=== PATIENT | female | born 1965 | race Two or more races ===

== ENCOUNTER 2016-07-04 16:44 | Emergency (ER) | payer MEDICARE, MEDICAID ==
[~2016-07-04] VITALS: Ht 154.9 cm; Wt 89.8 kg
[2016-07-04 17:00] VITALS: BP 132/91
== END 2016-07-04 22:07 | disposition home or self-care (01) ==
LOC: ER 16:46
DX: J40 Bronchitis, not specified as acute or chronic (principal); I25.10 Atherosclerotic heart disease of native coronary artery without angina pectoris
CPT/HCPCS: 71020; 93005

== ENCOUNTER 2022-10-20 19:06 | Emergency (ER) | payer MEDICARE, MEDICAID ==
[~2022-10-20] VITALS: Ht 157.5 cm; Wt 84.0 kg
[2022-10-20] MEDS ORDERED: levoFLOXacin 500MG 100 ML IV ONE (20:00)
[2022-10-20] MEDS ORDERED: SODIUM CHLORIDE 0.9% 1,000 ML IVB ONE (20:00)
[2022-10-20] MEDS ORDERED: cefTRIAXone 1GM/50ML D5W 50 ML IV ONE (20:00)
[2022-10-21 01:29] LABS: Basophils # (auto) 0 10 ^3/uL (0-0.2); Basophils % (auto) 0.4 % (0.0-2.0); Eosinophils # (auto) 0.3 10 ^3/uL (0-0.8); Eosinophils % (auto) 2.6 % (0.0-7.0); Hematocrit 41.3 % (36.0-46.0); Hemoglobin 13.7 g/dL (12.2-16.2); Lymphocytes # (auto) 2.6 10 ^3/uL (0.4-5.4); Mean Corpuscular Hemoglobin 29.5 pg (28.0-32.0); Mean Corpuscular Hgb Conc. 33.2 g/dL (32.0-36.0); Mean Corpuscular Volume 88.9 fL (80.0-100.0); Monocytes # (auto) 0.4 10 ^3/uL (0-1.3); Monocytes % (auto) 4.4 % (0.0-12.0); Neutrophils # (auto) 6.3 10 ^3/uL (1.6-8.6); Neutrophils % (auto) 65.6 % (37.0-80.0); Nucleated Red Blood Cells % 0.2 %; Red Blood Cells 4.65 10^6/uL (4.0-5.20); Red Cell Distribution Width 14.3 % (11.8-14.3); White Blood Cell 9.7 10^3/uL (4.4-10.8)
[2022-10-21 01:41] LABS: INR 0.95 (0.9-1.15)
[2022-10-21 01:59] LABS: Albumin 3.8 g/dL (3.4-5.0); BUN/Creatinine Ratio 21.6 (10.0-20.0); Potassium 3.4 mmol/L (3.5-5.1)
[2022-10-21 02:03] LABS: Bilirubin, Total 0.3 mg/dL (0.2-1.0); Total Protein 7.3 g/dL (6.4-8.2)
[2022-10-21 02:20] LABS: Urine Bacteria MANY /hpf (None Seen); Urine Blood 2+ /uL (Negative); Urine Hyaline Cast MANY /lpf (0 - 2); Urine Mucus FEW (None Seen); Urine Specific Gravity 1.024 (1.001-1.035); Urine WBC 156 /hpf (0 - 5); Urine WBC Clumps PRESENT /hpf (None Seen)
[2022-10-21 04:41] VITALS: PULSE 68; RESP 18; O2SAT 95
[2022-10-21 04:42] VITALS: TEMP 97.8
[2022-10-21] MEDS ORDERED: ONDANSETRON HCL 4 MG/2 ML VIAL IV ONE (05:00)
[2022-10-21] MEDS ORDERED: HYDROcodone-ACET 5/325MG TAB PO ONE (05:00)
[2022-10-21] MEDS ORDERED: cefTRIAXone 1GM/50ML D5W 50 ML IV ONE (06:00)
[2022-10-21] MEDS ORDERED: HYDROcodone-ACET 10/325MG TAB PO ONE (06:00)
[2022-10-21] MEDS ORDERED: CEPH250C PO (06:12)
[2022-10-21 06:44] VITALS: BP 103/65; PULSE 84; RESP 19; O2SAT 95
[2022-10-25] MEDS ORDERED: HYDR1TAB97 PO (20:06)
== END 2022-10-21 07:01 | disposition home or self-care (01) ==
LOC: ER 19:06
DX: N39.0 Urinary tract infection, site not specified (principal); R10.2 Pelvic and perineal pain; I25.10 Atherosclerotic heart disease of native coronary artery without angina pectoris; Z87.442 Personal history of urinary calculi; Z90.49 Acquired absence of other specified parts of digestive tract; Z98.890 Other specified postprocedural states; Z91.040 Latex allergy status; Z88.8 Allergy status to other drugs, medicaments and biological substances
CPT/HCPCS: 36415; 74176; 76830; 76856; 80053; 81001; 85025; 85610; 96365; 96367; 96375; 99285; J0696; J1956; J2405

== ENCOUNTER 2022-11-03 19:22 | Emergency (ER) | payer MEDICARE, MEDICAID ==
[~2022-11-03] VITALS: Ht 157.5 cm; Wt 83.2 kg
[~2022-11-03 19:22] MED LIST: CEPH250C PO; HYDR1TAB97 PO
[2022-11-03 21:24] LABS: Albumin 3.6 g/dL (3.4-5.0); BUN/Creatinine Ratio 20.1 (10.0-20.0); Calcium 8.2 mg/dL (8.5-10.1); Magnesium 2.3 mg/dL (1.6-2.6)
[2022-11-03 21:26] LABS: Bilirubin, Total 0.3 mg/dL (0.2-1.0); Total Protein 6.9 g/dL (6.4-8.2)
[2022-11-03 21:31] LABS: Basophils # (auto) 0.1 10 ^3/uL (0-0.2); Basophils % (auto) 0.6 % (0.0-2.0); Eosinophils # (auto) 0.2 10 ^3/uL (0-0.8); Eosinophils % (auto) 2.2 % (0.0-7.0); Hematocrit 37.5 % (36.0-46.0); Hemoglobin 12.8 g/dL (12.2-16.2); Lymphocytes # (auto) 2.4 10 ^3/uL (0.4-5.4); Lymphocytes % (auto) 28.4 % (10.0-50.0); Mean Corpuscular Hgb Conc. 34.1 g/dL (32.0-36.0); Mean Corpuscular Volume 88.1 fL (80.0-100.0); Monocytes # (auto) 0.4 10 ^3/uL (0-1.3); Monocytes % (auto) 4.7 % (0.0-12.0); Neutrophils # (auto) 5.3 10 ^3/uL (1.6-8.6); Neutrophils % (auto) 64.1 % (37.0-80.0); Nucleated Red Blood Cells % 0.1 %; Red Blood Cells 4.26 10^6/uL (4.0-5.20); Red Cell Distribution Width 14.7 % (11.8-14.3); White Blood Cell 8.3 10^3/uL (4.4-10.8)
[2022-11-03 23:52] VITALS: BP 111/61; PULSE 65; RESP 18; TEMP 97.9; O2SAT 96
[2022-11-03 23:52] LABS: Urine Bacteria MANY /hpf (None Seen); Urine Blood Negative /uL (Negative); Urine Hyaline Cast FEW /lpf (0 - 2); Urine Specific Gravity 1.022 (1.001-1.035); Urine WBC 25 /hpf (0 - 5)
[2022-11-04] MEDS ORDERED: HYDROcodone-ACET 10/325MG TAB PO ONE
[2022-11-04] MEDS ORDERED: KETOROLAC TROMETH 60MG/2ML VIAL IM ONE
[2022-11-04] MEDS ORDERED: MECL1TAB42 PO (00:49)
[2022-11-04] MEDS ORDERED: HYDROmorphone HCL 2 MG/ML VL/or syr IM ONE (01:00)
== END 2022-11-04 01:07 | disposition home or self-care (01) ==
LOC: ER 19:22
DX: S70.02XA Contusion of left hip, initial encounter (principal); R55 Syncope and collapse; R42 Dizziness and giddiness; E66.01 Morbid (severe) obesity due to excess calories; R06.02 Shortness of breath; Z68.33 Body mass index [BMI] 33.0-33.9, adult; Z91.040 Latex allergy status; Z87.442 Personal history of urinary calculi; Z90.49 Acquired absence of other specified parts of digestive tract; W18.11XA Fall from or off toilet without subsequent striking against object, initial encounter; Y93.89 Activity, other specified; Y92.091 Bathroom in other non-institutional residence as the place of occurrence of the external cause; Y99.8 Other external cause status
CPT/HCPCS: 36415; 70450; 71045; 72131; 72192; 80053; 81001; 82962; 83735; 83880; 84484; 85025; 93005; 96372; 99285; J1885

== ENCOUNTER 2022-11-30 19:51 | Emergency (ER) | payer MEDICARE, MEDICAID ==
[~2022-11-30] VITALS: Ht 157.5 cm; Wt 90.0 kg
[~2022-11-30 19:51] MED LIST changes: +MECL1TAB42 PO
[2022-11-30 20:30] LABS: Basophils # (auto) 0.1 10 ^3/uL (0-0.2); Basophils % (auto) 0.7 % (0.0-2.0); Eosinophils # (auto) 0.2 10 ^3/uL (0-0.8); Eosinophils % (auto) 2.1 % (0.0-7.0); Hematocrit 42.6 % (36.0-46.0); Hemoglobin 14.2 g/dL (12.2-16.2); Lymphocytes # (auto) 1.7 10 ^3/uL (0.4-5.4); Lymphocytes % (auto) 20.7 % (10.0-50.0); Mean Corpuscular Hemoglobin 29.3 pg (28.0-32.0); Mean Corpuscular Hgb Conc. 33.4 g/dL (32.0-36.0); Mean Corpuscular Volume 87.8 fL (80.0-100.0); Monocytes # (auto) 0.6 10 ^3/uL (0-1.3); Neutrophils # (auto) 5.7 10 ^3/uL (1.6-8.6); Neutrophils % (auto) 69.5 % (37.0-80.0); Nucleated Red Blood Cells % 0.2 %; Red Blood Cells 4.85 10^6/uL (4.0-5.20); Red Cell Distribution Width 14.2 % (11.8-14.3); White Blood Cell 8.2 10^3/uL (4.4-10.8)
[2022-11-30 20:49] LABS: Alanine Aminotransferase 10 U/L (7-40); Albumin 4.2 g/dL (3.2-4.8); Alkaline Phosphatase 129 U/L (46-116); Anion Gap 10.4 (5-15); Aspartate Aminotransferase 23 U/L (13-40); Bilirubin, Total 0.6 mg/dL (0.2-1.0); Blood Urea Nitrogen 9 mg/dL (9-23); Carbon Dioxide 26.6 mmol/L (20-30); Chloride 104 mmol/L (98-107); Glucose 167 mg/dL (74-106); Magnesium 1.9 mg/dL (1.6-2.6); Potassium 3.4 mmol/L (3.5-5.1); Sodium 141 mmol/L (136-145); Total Protein 6.5 g/dL (5.7-8.2)
[2022-11-30 20:50] LABS: INR 1.01 (0.9-1.15); Partial Thromboplastin Time 26.1 SEC (24.5-34.5); Prothrombin Time 10.6 sec (9.3-11.8)
[2022-12-01] MEDS ORDERED: ALBUTEROL SULF 2.5 MG/0.5ML(0.5%) NEB SOLN NEB ONE (01:15)
[2022-12-01] MEDS ORDERED: IPRATROPIUM BROM 0.5 MG/2.5ML INH SOL NEB ONE (01:15)
[2022-12-01] MEDS ORDERED: DexAMETHasone SOD PHOS 10MG/1ML VIAL INJ IM ONE (02:30)
[2022-12-01] MEDS ORDERED: DEX4T PO (02:31)
[2022-12-01] MEDS ORDERED: ALBU108A5 IN (02:31)
[2022-12-01 04:42] VITALS: BP 115/66; PULSE 87; RESP 16; TEMP 98.8; O2SAT 97
== END 2022-12-01 04:55 | disposition home or self-care (01) ==
LOC: EDBD 19:51 → ER 19:53
DX: R07.89 Other chest pain (principal); J98.8 Other specified respiratory disorders; R73.9 Hyperglycemia, unspecified; R06.2 Wheezing; Z91.040 Latex allergy status; Z90.49 Acquired absence of other specified parts of digestive tract; Z87.442 Personal history of urinary calculi; Z79.899 Other long term (current) drug therapy
CPT/HCPCS: 36415; 71045; 80053; 83735; 83880; 84484; 85025; 85610; 85730; 93005; 94640; 96372; 99285; J1100

== ENCOUNTER 2022-12-26 19:46 | Emergency (ER) | payer MEDICARE, MEDICAID ==
[~2022-12-26] VITALS: Ht 154.9 cm; Wt 82.0 kg
[2022-12-26 19:46] VITALS: BP 100/65; PULSE 81; RESP 16; TEMP 97.8; O2SAT 96
[~2022-12-26 19:46] MED LIST changes: +ALBU108A5 IN; +DEX4T PO
[2022-12-27] MEDS ORDERED: ACET500T58 PO (03:45)
[2022-12-27] MEDS ORDERED: ACETAMINOPHEN 325 MG TAB PO ONE (04:00)
== END 2022-12-27 04:03 | disposition home or self-care (01) ==
LOC: ER 19:46
DX: S60.011A Contusion of right thumb without damage to nail, initial encounter (principal); I25.10 Atherosclerotic heart disease of native coronary artery without angina pectoris; Z90.49 Acquired absence of other specified parts of digestive tract; Z79.899 Other long term (current) drug therapy; Z88.8 Allergy status to other drugs, medicaments and biological substances; Z91.040 Latex allergy status; W23.0XXA Caught, crushed, jammed, or pinched between moving objects, initial encounter; Y93.89 Activity, other specified; Y92.89 Other specified places as the place of occurrence of the external cause; Y99.8 Other external cause status
CPT/HCPCS: 73140

== ENCOUNTER 2023-02-14 12:56 | Emergency (ER) | payer MEDICARE, MEDICAID ==
[~2023-02-14] VITALS: Ht 157.5 cm; Wt 79.5 kg
[~2023-02-14 12:56] MED LIST changes: +ACET500T58 PO
[2023-02-14 14:34] LABS: Basophils # (auto) 0 10 ^3/uL (0-0.2); Basophils % (auto) 0.2 % (0.0-2.0); Eosinophils # (auto) 0.2 10 ^3/uL (0-0.8); Hematocrit 42.5 % (36.0-46.0); Hemoglobin 14.1 g/dL (12.2-16.2); Lymphocytes # (auto) 2.1 10 ^3/uL (0.4-5.4); Lymphocytes % (auto) 23.6 % (10.0-50.0); Mean Corpuscular Hemoglobin 28.8 pg (28.0-32.0); Mean Corpuscular Hgb Conc. 33.3 g/dL (32.0-36.0); Mean Corpuscular Volume 86.7 fL (80.0-100.0); Monocytes # (auto) 0.3 10 ^3/uL (0-1.3); Monocytes % (auto) 3.5 % (0.0-12.0); Neutrophils # (auto) 6.4 10 ^3/uL (1.6-8.6); Neutrophils % (auto) 70.7 % (37.0-80.0); Red Cell Distribution Width 14.9 % (11.8-14.3); White Blood Cell 9.1 10^3/uL (4.4-10.8)
[2023-02-14 14:55] LABS: Albumin 4.5 g/dL (3.2-4.8); Alkaline Phosphatase 129 U/L (46-116); Anion Gap 6 (5-15); Aspartate Aminotransferase 9 U/L (13-40); Blood Urea Nitrogen 13 mg/dL (9-23); Calcium 9.6 mg/dL (8.7-10.4); Carbon Dioxide 33 mmol/L (20-30); Chloride 106 mmol/L (98-107); Glucose 219 mg/dL (74-106); Lipase 32 U/L (12-53); Potassium 3.9 mmol/L (3.5-5.1); Sodium 145 mmol/L (136-145)
[2023-02-14 14:56] LABS: Bilirubin, Total 0.5 mg/dL (0.2-1.0); Total Protein 6.5 g/dL (5.7-8.2)
[2023-02-14 14:58] LABS: Alanine Aminotransferase 9 U/L (7-40)
[2023-02-14 15:26] LABS: Urine Bacteria FEW /hpf (None Seen); Urine Blood Negative /uL (Negative); Urine Clarity HAZY (Clear); Urine Color Yellow (Yellow); Urine Hyaline Cast MOD /lpf (0 - 2); Urine Mucus FEW (None Seen); Urine Protein, UAD 1+ (Negative); Urine Specific Gravity 1.026 (1.001-1.035); Urine Urobilinogen Normal (Negative); Urine WBC 43 /hpf (0 - 5); Urine pH 5.5 (5.0-8.0)
[2023-02-14] MEDS ORDERED: CIPR-173 PO ×3 (15:57→15:58)
[2023-02-14] MEDS ORDERED: MORPHINE SULFATE INJ 2 MG/ml SYRG IM ONE (16:00)
[2023-02-14] MEDS ORDERED: TAMS-35 PO (16:21)
[2023-02-14 16:24] VITALS: O2SAT 98
[2023-02-14 16:29] VITALS: BP 120/69; PULSE 80; RESP 18
== END 2023-02-14 16:29 | disposition home or self-care (01) ==
LOC: ER 12:56
DX: N20.0 Calculus of kidney (principal); D25.9 Leiomyoma of uterus, unspecified; N39.0 Urinary tract infection, site not specified; E11.9 Type 2 diabetes mellitus without complications; I25.10 Atherosclerotic heart disease of native coronary artery without angina pectoris; E78.5 Hyperlipidemia, unspecified; Z86.73 Personal history of transient ischemic attack (TIA), and cerebral infarction without residual deficits; Z98.890 Other specified postprocedural states; Z91.040 Latex allergy status; Z88.8 Allergy status to other drugs, medicaments and biological substances; Z79.899 Other long term (current) drug therapy
CPT/HCPCS: 36415; 74176; 80053; 81001; 83690; 84484; 85025; 93005; 96372; 99285; J2270

== ENCOUNTER 2023-06-18 15:08 | Emergency (ER) | payer MEDICARE, MEDICAID ==
[~2023-06-18] VITALS: Ht 157.5 cm; Wt 77.0 kg
[~2023-06-18 15:08] MED LIST changes: +CIPR-173 PO; +TAMS-35 PO
[2023-06-18 15:26] VITALS: BP 107/79; RESP 16; O2SAT 96
[2023-06-18 15:27] VITALS: PULSE 86
[2023-06-18 15:59] LABS: Basophils # (auto) 0.1 10 ^3/uL (0-0.2); Basophils % (auto) 0.6 % (0.0-2.0); Eosinophils # (auto) 0.1 10 ^3/uL (0-0.8); Eosinophils % (auto) 1.5 % (0.0-7.0); Hematocrit 45.7 % (36.0-46.0); Hemoglobin 15.1 g/dL (12.2-16.2); Lymphocytes # (auto) 2.6 10 ^3/uL (0.4-5.4); Lymphocytes % (auto) 26.1 % (10.0-50.0); Mean Corpuscular Hemoglobin 28.6 pg (28.0-32.0); Mean Corpuscular Volume 86.7 fL (80.0-100.0); Monocytes # (auto) 0.3 10 ^3/uL (0-1.3); Monocytes % (auto) 3.2 % (0.0-12.0); Neutrophils # (auto) 6.9 10 ^3/uL (1.6-8.6); Neutrophils % (auto) 68.6 % (37.0-80.0); Nucleated Red Blood Cells % 0.1 %; Red Blood Cells 5.27 10^6/uL (4.0-5.20); Red Cell Distribution Width 15.1 % (11.8-14.3)
[2023-06-18 16:04] LABS: Urine Bacteria FEW /hpf (None Seen); Urine Blood Negative /uL (Negative); Urine Clarity Clear (Clear); Urine Color Yellow (Yellow); Urine Hyaline Cast FEW /lpf (0 - 2); Urine Protein, UAD TRACE (Negative); Urine Urobilinogen Normal (Negative); Urine WBC 7 /hpf (0 - 5); Urine pH 5.5 (5.0-8.0)
[2023-06-18 16:18] LABS: Alanine Aminotransferase < 9 U/L (7-40); Albumin 4.7 g/dL (3.2-4.8); Alkaline Phosphatase 129 U/L (46-116); Anion Gap 9 (5-15); Aspartate Aminotransferase 10 U/L (13-40); BUN/Creatinine Ratio 13.9 (10.0-20.0); Bilirubin, Total 0.7 mg/dL (0.2-1.0); Blood Urea Nitrogen 15 mg/dL (9-23); Calcium 9.8 mg/dL (8.7-10.4); Carbon Dioxide 29 mmol/L (20-30); Chloride 105 mmol/L (98-107); Glucose 140 mg/dL (74-106); Lipase 26 U/L (12-53); Potassium 3.7 mmol/L (3.5-5.1); Sodium 143 mmol/L (136-145)
[2023-06-18] MEDS ORDERED: cefTRIAXone 1GM/50ML D5W 50 ML IV ONE (19:15)
[2023-06-18] MEDS ORDERED: KETOROLAC TROMETH 60MG/2ML VIAL IV ONE (19:15)
[2023-06-18] MEDS ORDERED: CIPR-173 PO (19:17)
== END 2023-06-18 20:44 | disposition home or self-care (01) ==
LOC: ER 15:08
DX: N39.0 Urinary tract infection, site not specified (principal); D25.9 Leiomyoma of uterus, unspecified; R07.89 Other chest pain; I25.10 Atherosclerotic heart disease of native coronary artery without angina pectoris; E11.9 Type 2 diabetes mellitus without complications; E78.5 Hyperlipidemia, unspecified; Z86.73 Personal history of transient ischemic attack (TIA), and cerebral infarction without residual deficits; Z90.49 Acquired absence of other specified parts of digestive tract; Z79.2 Long term (current) use of antibiotics; Z79.899 Other long term (current) drug therapy; Z88.8 Allergy status to other drugs, medicaments and biological substances; Z91.040 Latex allergy status
CPT/HCPCS: 36415; 71045; 74176; 80053; 81001; 83605; 83690; 84484; 85025; 93005

== ENCOUNTER 2023-07-17 23:06 | Emergency (ER) | payer MEDICARE, MEDICAID ==
[~2023-07-17] VITALS: Ht 154.9 cm; Wt 75.0 kg
[2023-07-17 23:33] LABS: Basophils # (auto) 0.1 10 ^3/uL (0-0.2); Basophils % (auto) 1.1 % (0.0-2.0); Eosinophils # (auto) 0.2 10 ^3/uL (0-0.8); Eosinophils % (auto) 2.9 % (0.0-7.0); Hematocrit 39.9 % (36.0-46.0); Hemoglobin 13.2 g/dL (12.2-16.2); Lymphocytes # (auto) 2.5 10 ^3/uL (0.4-5.4); Lymphocytes % (auto) 31.5 % (10.0-50.0); Mean Corpuscular Hemoglobin 28.6 pg (28.0-32.0); Mean Corpuscular Hgb Conc. 33.2 g/dL (32.0-36.0); Mean Corpuscular Volume 86.2 fL (80.0-100.0); Monocytes # (auto) 0.4 10 ^3/uL (0-1.3); Monocytes % (auto) 5.3 % (0.0-12.0); Neutrophils # (auto) 4.7 10 ^3/uL (1.6-8.6); Neutrophils % (auto) 59.2 % (37.0-80.0); Red Blood Cells 4.62 10^6/uL (4.0-5.20); Red Cell Distribution Width 15.4 % (11.8-14.3); White Blood Cell 7.9 10^3/uL (4.4-10.8)
[2023-07-17 23:51] LABS: Albumin 4.2 g/dL (3.2-4.8); Alkaline Phosphatase 131 U/L (46-116); Anion Gap 5 (5-15); Aspartate Aminotransferase < 8 U/L (13-40); BUN/Creatinine Ratio 12.1 (10.0-20.0); Blood Urea Nitrogen 13 mg/dL (9-23); Calcium 10.3 mg/dL (8.7-10.4); Carbon Dioxide 32 mmol/L (20-30); Chloride 105 mmol/L (98-107); Glucose 171 mg/dL (74-106); INR 0.96 (0.9-1.15); Magnesium 2.1 mg/dL (1.6-2.6); Partial Thromboplastin Time 24.6 SEC (24.5-34.5); Potassium 3.9 mmol/L (3.5-5.1); Prothrombin Time 10.1 sec (9.3-11.8); Sodium 142 mmol/L (136-145)
[2023-07-17 23:52] LABS: Alanine Aminotransferase < 9 U/L (7-40); Bilirubin, Total 0.3 mg/dL (0.2-1.0); Total Protein 6.6 g/dL (5.7-8.2)
[2023-07-18 05:20] VITALS: BP 114/83; PULSE 80; RESP 16; TEMP 98; O2SAT 95
== END 2023-07-18 05:33 | disposition home or self-care (01) ==
LOC: ER 23:06 → EDBD 23:06 → ER 07-18 05:25
DX: R07.89 Other chest pain (principal); I25.10 Atherosclerotic heart disease of native coronary artery without angina pectoris; E11.9 Type 2 diabetes mellitus without complications; E78.5 Hyperlipidemia, unspecified; Z86.73 Personal history of transient ischemic attack (TIA), and cerebral infarction without residual deficits; Z87.442 Personal history of urinary calculi; Z98.890 Other specified postprocedural states; Z91.040 Latex allergy status; Z88.8 Allergy status to other drugs, medicaments and biological substances; Z79.899 Other long term (current) drug therapy
CPT/HCPCS: 36415; 71045; 80053; 83735; 83880; 84484; 85025; 85610; 85730; 93005

== ENCOUNTER 2023-11-01 16:04 | Inpatient (IN) | payer MEDICARE, MEDICAID ==
[~2023-11-01] VITALS: Ht 157.5 cm; Wt 84.1 kg
[~2023-11-01 16:04] MED LIST changes: +ASPI-325 PO; +ATOR20TA50 PO; +BALS750C6 PO; -CEPH250C PO; +CHOL20003 PO; +CHOL4POW39 PO; -CIPR-173 PO; +CLOP75TA70 PO; -DEX4T PO; +FURO40TA4 PO; +GABA-1250 PO; +LEVO500T91 PO; +MESA400C PO; +METR-344 PO; +SITA100T7 PO; -TAMS-35 PO; +TIRZ7.5I SC
[2023-11-01 17:57] LABS: Basophils # (auto) 0.1 10 ^3/uL (0-0.2); Basophils % (auto) 0.8 % (0.0-2.0); Eosinophils # (auto) 0.3 10 ^3/uL (0-0.8); Eosinophils % (auto) 3.2 % (0.0-7.0); Hematocrit 41.2 % (36.0-46.0); Hemoglobin 13.9 g/dL (12.2-16.2); Lymphocytes # (auto) 2.5 10 ^3/uL (0.4-5.4); Mean Corpuscular Hemoglobin 29.4 pg (28.0-32.0); Mean Corpuscular Hgb Conc. 33.7 g/dL (32.0-36.0); Mean Corpuscular Volume 87.3 fL (80.0-100.0); Monocytes # (auto) 0.4 10 ^3/uL (0-1.3); Monocytes % (auto) 4.5 % (0.0-12.0); Neutrophils # (auto) 5.4 10 ^3/uL (1.6-8.6); Neutrophils % (auto) 62.5 % (37.0-80.0); Red Blood Cells 4.72 10^6/uL (4.0-5.20); Red Cell Distribution Width 14.8 % (11.8-14.3); White Blood Cell 8.6 10^3/uL (4.4-10.8)
[2023-11-01 18:09] LABS: Albumin 4.5 g/dL (3.2-4.8); Alkaline Phosphatase 130 U/L (46-116); Anion Gap 7 (5-15); Aspartate Aminotransferase 9 U/L (13-40); BUN/Creatinine Ratio 13.9 (10.0-20.0); Blood Urea Nitrogen 14 mg/dL (9-23); Calcium 9.6 mg/dL (8.7-10.4); Carbon Dioxide 29 mmol/L (20-30); Chloride 105 mmol/L (98-107); Glucose 245 mg/dL (74-106); Potassium 3.7 mmol/L (3.5-5.1); Sodium 141 mmol/L (136-145)
[2023-11-01 18:10] LABS: Bilirubin, Total 0.3 mg/dL (0.2-1.0); Total Protein 6.8 g/dL (5.7-8.2)
[2023-11-01 18:29] LABS: Alanine Aminotransferase < 9 U/L (7-40)
[2023-11-01 18:42] LABS: Urine Bacteria FEW /hpf (None Seen); Urine Blood Negative /uL (Negative); Urine Clarity Clear (Clear); Urine Color Light-Yellow (Yellow); Urine Hyaline Cast FEW /lpf (0 - 2); Urine Mucus FEW (None Seen); Urine Protein, UAD Negative (Negative); Urine Specific Gravity 1.011 (1.001-1.035); Urine Urobilinogen Normal (Negative); Urine WBC 1 /hpf (0 - 5); Urine pH 5.5 (5.0-9.0)
[2023-11-01] MEDS ORDERED: ONDANSETRON HCL 4 MG/2 ML VIAL IV PRN (20:45)
[2023-11-01] MEDS ORDERED: DOCUSATE SOD 100 MG CAP PO PRN (20:45)
[2023-11-01] MEDS ORDERED: ACETAMINOPHEN 325 MG TAB PO PRN (20:45)
[2023-11-01 21:30] VITALS: PULSE 69; RESP 18; O2SAT 96
[2023-11-01] MEDS: HYDROcodone-ACET 5/325MG TAB PO PRN (21:49)
[2023-11-01] MEDS: ATORVASTATIN 20 MG TAB PO SCH (21:51)
[2023-11-01] MEDS: SODIUM CHLOR 0.9% PF (SALINE LOCK) 10ML VIAL/SYR IV SCH (21:51)
[2023-11-01] MEDS: MESALAMINE 400mg Delayed Release Cap PO SCH (22:00)
[2023-11-01] MEDS: FUROSEMIDE 40 MG TAB PO SCH (22:04)
[2023-11-01 23:42] VITALS: O2SAT 98
[2023-11-02] VITALS: BP 103/60; PULSE 60; RESP 18; TEMP 98.3; O2SAT 95
[2023-11-02 08:00] VITALS: PULSE 68; PULSE 92; RESP 18; O2SAT 98
[2023-11-02 09:00] VITALS: BP 100/52; PULSE 66; RESP 18; TEMP 97.9; O2SAT 92
[2023-11-02] MEDS: CLOPIDOGREL BISULFATE 75 MG TAB PO SCH (10:07)
[2023-11-02] MEDS: ENOXAPARIN SOD 40 MG/0.4 ML SYRINGE SC SCH (10:07)
[2023-11-02] MEDS: ASPirin-EC 81 mg tab PO SCH (10:07)
[2023-11-02] MEDS: CHOLECALCIFEROL (VITD3) 1,000UNIT=25mCg TAB PO SCH (11:32)
[2023-11-02] MEDS: glipiZIDE 5 MG TAB PO ONE (11:35)
[2023-11-02 13:00] VITALS: BP 109/61; PULSE 72; RESP 16; TEMP 97.8; O2SAT 94
[2023-11-02] MEDS: HYDROmorphone HCL 2 MG/ML VL/or syr IV PRN (15:24)
[2023-11-02 17:00] VITALS: BP 97/65; PULSE 62; RESP 18; TEMP 98.3; O2SAT 97
[2023-11-02 20:00] VITALS: PULSE 64; PULSE 68; RESP 17; O2SAT 90
[2023-11-03] MEDS: GABAPENTIN 300 MG CAP PO SCH (01:41)
[2023-11-03 05:00] VITALS: BP 112/62; PULSE 66; RESP 18; TEMP 97.6; O2SAT 92
[2023-11-03] MEDS: glipiZIDE 5 MG TAB PO SCH (06:20)
[2023-11-03 07:43] LABS: Triglycerides 173 mg/dL (< 150)
[2023-11-03 07:44] LABS: LDL Cholesterol 66 mg/dL (< 100)
[2023-11-03 07:45] LABS: Cholesterol 117 mg/dL (< 200); HDL Cholesterol 29 mg/dL (40-59)
[2023-11-03 07:53] VITALS: BP 105/57; PULSE 70; RESP 20; TEMP 98.7; O2SAT 90
[2023-11-03 08:00] VITALS: PULSE 68
[2023-11-03 08:09] VITALS: PULSE 92; RESP 18; O2SAT 98
[2023-11-03 12:13] VITALS: BP 100/57; PULSE 64; RESP 20; TEMP 98.5; O2SAT 89
[2023-11-03 13:23] VITALS: BP 112/62; TEMP 36.9
== END 2023-11-03 14:00 | disposition home or self-care (01) | DRG 69 ==
LOC: ER 16:04 → TELE 20:45 → TELE-CENTR 23:21
PROVIDERS: ADMIT Internal Medicine; ATTEND Internal Medicine
DX: G45.9 Transient cerebral ischemic attack, unspecified (principal); I69.354 Hemiplegia and hemiparesis following cerebral infarction affecting left non-dominant side; K50.90 Crohn's disease, unspecified, without complications; I25.10 Atherosclerotic heart disease of native coronary artery without angina pectoris; F41.9 Anxiety disorder, unspecified; E78.5 Hyperlipidemia, unspecified; E11.65 Type 2 diabetes mellitus with hyperglycemia; R47.1 Dysarthria and anarthria; K59.00 Constipation, unspecified; Z87.442 Personal history of urinary calculi; Z90.49 Acquired absence of other specified parts of digestive tract; Z82.0 Family history of epilepsy and other diseases of the nervous system; Z82.49 Family history of ischemic heart disease and other diseases of the circulatory system; Z80.0 Family history of malignant neoplasm of digestive organs; Z83.3 Family history of diabetes mellitus; Z88.8 Allergy status to other drugs, medicaments and biological substances; Z91.040 Latex allergy status; Z79.899 Other long term (current) drug therapy
CPT/HCPCS: 36415; 70450; 70551; 71045; 74176; 80053; 80061; 81001; 82962; 83036; 83880; 84484; 85025; 93005; 93886; G0378

== ENCOUNTER 2023-11-27 17:23 | Inpatient (IN) | payer MEDICARE, MEDICAID ==
[~2023-11-27] VITALS: Ht 157.5 cm; Wt 78.2 kg
[~2023-11-27 17:23] MED LIST changes: -LEVO500T91 PO; -METR-344 PO
[2023-11-27 18:09] LABS: Basophils # (auto) 0.1 10 ^3/uL (0-0.2); Basophils % (auto) 0.7 % (0.0-2.0); Eosinophils # (auto) 0.2 10 ^3/uL (0-0.8); Eosinophils % (auto) 2.7 % (0.0-7.0); Hematocrit 41.4 % (36.0-46.0); Hemoglobin 13.8 g/dL (12.2-16.2); Lymphocytes # (auto) 2.7 10 ^3/uL (0.4-5.4); Lymphocytes % (auto) 33.3 % (10.0-50.0); Mean Corpuscular Hemoglobin 29.4 pg (28.0-32.0); Mean Corpuscular Hgb Conc. 33.4 g/dL (32.0-36.0); Monocytes # (auto) 0.4 10 ^3/uL (0-1.3); Monocytes % (auto) 5.6 % (0.0-12.0); Neutrophils # (auto) 4.6 10 ^3/uL (1.6-8.6); Neutrophils % (auto) 57.7 % (37.0-80.0); Nucleated Red Blood Cells % 0.1 %; Platelet Count (auto) 207 10^3/uL (140-450); Red Cell Distribution Width 14.8 % (11.8-14.3)
[2023-11-27 18:23] LABS: Albumin 4.4 g/dL (3.2-4.8); Alkaline Phosphatase 127 U/L (46-116); Anion Gap 7 (5-15); Aspartate Aminotransferase < 8 U/L (13-40); BUN/Creatinine Ratio 17.3 (10.0-20.0); Bilirubin, Total 0.3 mg/dL (0.2-1.0); Blood Urea Nitrogen 18 mg/dL (9-23); Calcium 10.2 mg/dL (8.7-10.4); Carbon Dioxide 27 mmol/L (20-30); Chloride 108 mmol/L (98-107); Glucose 146 mg/dL (74-106); Magnesium 2.1 mg/dL (1.6-2.6); Potassium 3.9 mmol/L (3.5-5.1); Sodium 142 mmol/L (136-145); Total Protein 6.5 g/dL (5.7-8.2)
[2023-11-27 18:29] LABS: Alanine Aminotransferase < 9 U/L (7-40)
[2023-11-27] MEDS: NITROGLYCERIN 0.4 MG SL TAB SL ONE (19:30)
[2023-11-28] VITALS (11 sets, daily range): BP systolic 91–125; BP diastolic 54–71; PULSE 61–90; RESP 11–20; TEMP 97.3–98.3; O2SAT 91–95
[2023-11-28] MEDS ORDERED: ONDANSETRON HCL 4 MG/2 ML VIAL IV PRN
[2023-11-28] MEDS ORDERED: DOCUSATE SOD 100 MG CAP PO PRN
[2023-11-28] MEDS ORDERED: NITROGLYCERIN 0.4 MG SL TAB SL PRN
[2023-11-28] MEDS ORDERED: ACETAMINOPHEN 325 MG TAB PO PRN
[2023-11-28] MEDS ORDERED: MORPHINE SULFATE INJ 2 MG/ml SYRG IV PRN
[2023-11-28] MEDS: HYDROcodone-ACET 5/325MG TAB PO PRN (02:29)
[2023-11-28] MEDS ORDERED: POTA-36 PO (04:21)
[2023-11-28] MEDS ORDERED: BACL10TA PO (04:21)
[2023-11-28 07:08] LABS: Basophils # (auto) 0 10 ^3/uL (0-0.2); Basophils % (auto) 0.4 % (0.0-2.0); Eosinophils # (auto) 0.3 10 ^3/uL (0-0.8); Eosinophils % (auto) 3.4 % (0.0-7.0); Hematocrit 39.2 % (36.0-46.0); Hemoglobin 13.1 g/dL (12.2-16.2); Lymphocytes # (auto) 2.3 10 ^3/uL (0.4-5.4); Lymphocytes % (auto) 28.7 % (10.0-50.0); Mean Corpuscular Hemoglobin 29.5 pg (28.0-32.0); Mean Corpuscular Hgb Conc. 33.5 g/dL (32.0-36.0); Mean Corpuscular Volume 88.1 fL (80.0-100.0); Monocytes # (auto) 0.3 10 ^3/uL (0-1.3); Neutrophils % (auto) 63.5 % (37.0-80.0); Nucleated Red Blood Cells % 0.4 %; Platelet Count (auto) 185 10^3/uL (140-450); Red Blood Cells 4.45 10^6/uL (4.0-5.20); Red Cell Distribution Width 14.7 % (11.8-14.3); White Blood Cell 7.9 10^3/uL (4.4-10.8)
[2023-11-28 07:38] LABS: Alkaline Phosphatase 102 U/L (46-116); Anion Gap 7 (5-15); BUN/Creatinine Ratio 16.5 (10.0-20.0); Blood Urea Nitrogen 18 mg/dL (9-23); Calcium 9.8 mg/dL (8.7-10.4); Carbon Dioxide 30 mmol/L (20-30); Chloride 106 mmol/L (98-107); Glucose 118 mg/dL (74-106); Potassium 3.5 mmol/L (3.5-5.1); Sodium 143 mmol/L (136-145)
[2023-11-28 07:39] LABS: Alanine Aminotransferase < 9 U/L (7-40); Albumin 4.1 g/dL (3.2-4.8); Aspartate Aminotransferase < 8 U/L (13-40); Bilirubin, Total 0.5 mg/dL (0.2-1.0); Total Protein 6.3 g/dL (5.7-8.2)
[2023-11-28] MEDS: ENOXAPARIN SOD 40 MG/0.4 ML SYRINGE SC SCH (08:54)
[2023-11-28] MEDS: MORPHINE SULFATE INJ 2 MG/ml SYRG IV PRN (08:55)
[2023-11-28] MEDS: GABAPENTIN 300 MG CAP PO SCH (17:27)
[2023-11-28] MEDS: FUROSEMIDE 40 MG TAB PO SCH (18:54)
[2023-11-28] MEDS: ATORVASTATIN 20 MG TAB PO SCH (21:33)
[2023-11-29 01:00] VITALS: BP 120/74; PULSE 74; RESP 18; TEMP 97.6; O2SAT 95
[2023-11-29 05:00] VITALS: BP 106/66; PULSE 72; RESP 18; TEMP 97.8; O2SAT 92
[2023-11-29 08:00] VITALS: PULSE 84
[2023-11-29] MEDS: ASPirin-EC 81 mg tab PO SCH (08:33)
[2023-11-29] MEDS: CLOPIDOGREL BISULFATE 75 MG TAB PO SCH (08:33)
[2023-11-29 09:00] VITALS: BP 115/68; PULSE 74; RESP 18; TEMP 98.2; O2SAT 97
[2023-11-29 13:00] VITALS: BP 104/71; PULSE 75; RESP 18; TEMP 98.4; O2SAT 95
== END 2023-11-29 13:14 | disposition home or self-care (01) | DRG 313 ==
LOC: ER 17:23 → TELE 23:51 → TELE-WESTW 11-28 03:15
PROVIDERS: ADMIT Internal Medicine; ATTEND Internal Medicine
DX: R07.89 Other chest pain (principal); K57.32 Diverticulitis of large intestine without perforation or abscess without bleeding; K52.89 Other specified noninfective gastroenteritis and colitis; D25.9 Leiomyoma of uterus, unspecified; E78.5 Hyperlipidemia, unspecified; E11.65 Type 2 diabetes mellitus with hyperglycemia; E66.01 Morbid (severe) obesity due to excess calories; K59.00 Constipation, unspecified; I50.9 Heart failure, unspecified; Z79.84 Long term (current) use of oral hypoglycemic drugs; Z80.0 Family history of malignant neoplasm of digestive organs; Z90.49 Acquired absence of other specified parts of digestive tract; I69.320 Aphasia following cerebral infarction; Z85.41 Personal history of malignant neoplasm of cervix uteri; Z85.05 Personal history of malignant neoplasm of liver; Z68.31 Body mass index [BMI] 31.0-31.9, adult; Z82.49 Family history of ischemic heart disease and other diseases of the circulatory system; Z79.82 Long term (current) use of aspirin; Z79.02 Long term (current) use of antithrombotics/antiplatelets; Z82.0 Family history of epilepsy and other diseases of the nervous system; Z83.3 Family history of diabetes mellitus; W01.0XXA Fall on same level from slipping, tripping and stumbling without subsequent striking against object, initial encounter; Y93.89 Activity, other specified; Y92.002 Bathroom of unspecified non-institutional (private) residence as the place of occurrence of the external cause; Y99.8 Other external cause status
CPT/HCPCS: 36415; 71045; 73030; 80053; 83735; 83880; 84484; 85025; 93005; G0378

== ENCOUNTER 2024-02-25 18:41 | Emergency (ER) | payer MEDICARE, MEDICAID ==
[~2024-02-25] VITALS: Ht 157.5 cm; Wt 79.5 kg
[~2024-02-25 18:41] MED LIST changes: +BACL10TA PO; +POTA-36 PO
[2024-02-25 20:12] LABS: Basophils # (auto) 0 10 ^3/uL (0-0.2); Basophils % (auto) 0.7 % (0.0-2.0); Eosinophils # (auto) 0.2 10 ^3/uL (0-0.8); Eosinophils % (auto) 2.4 % (0.0-7.0); Hematocrit 43.1 % (36.0-46.0); Hemoglobin 14.5 g/dL (12.2-16.2); Lymphocytes % (auto) 27.6 % (10.0-50.0); Mean Corpuscular Hemoglobin 30.4 pg (28.0-32.0); Mean Corpuscular Hgb Conc. 33.8 g/dL (32.0-36.0); Monocytes # (auto) 0.3 10 ^3/uL (0-1.3); Monocytes % (auto) 4.3 % (0.0-12.0); Neutrophils # (auto) 4.8 10 ^3/uL (1.6-8.6); Nucleated Red Blood Cells % 0.2 %; Platelet Count (auto) 220 10^3/uL (140-450); Red Blood Cells 4.78 10^6/uL (4.0-5.20); Red Cell Distribution Width 14.9 % (11.8-14.3); White Blood Cell 7.4 10^3/uL (4.4-10.8)
[2024-02-25 20:27] LABS: Alanine Aminotransferase < 9 U/L (7-40); Albumin 4.6 g/dL (3.2-4.8); Alkaline Phosphatase 127 U/L (46-116); Anion Gap 10 (5-15); Aspartate Aminotransferase 10 U/L (13-40); BUN/Creatinine Ratio 13.8 (10.0-20.0); Bilirubin, Total 0.3 mg/dL (0.2-1.0); Blood Urea Nitrogen 16 mg/dL (9-23); Calcium 9.9 mg/dL (8.7-10.4); Carbon Dioxide 29 mmol/L (20-31); Chloride 108 mmol/L (98-107); Glucose 160 mg/dL (74-106); Potassium 4.1 mmol/L (3.5-5.1); Sodium 147 mmol/L (136-145); Total Protein 6.7 g/dL (5.7-8.2)
[2024-02-25 20:32] LABS: INR 0.95 (0.9-1.15); Partial Thromboplastin Time 23.6 SEC (24.5-34.5); Prothrombin Time 10.1 sec (9.3-11.8)
--- NOTE | 2024-02-25 21:42 | DVH ---
CHEST RADIOGRAPH Indication: CHEST PAIN Technique: Single frontal view of the chest was obtained COMPARISON: XY CHEST PORTABLE on DOS: 11/27/23, XY CHEST PORTABLE on DOS: 11/01/23, XY CHEST PORTABLE o n DOS: 07/18/23, XY CHEST PORTABLE on DOS: 06/18/23, XY CHEST PORTABLE on DOS: 12/01/22 FINDINGS: Lines and Tubes: None Lungs: Clear Pleura: No effusion. No pneumothorax. Cardiomediastinal contours: Unremarkable Bones: Unremarkable IMPRESSION: 1. No acute disease.
--- NOTE | 2024-02-26 | ED.PDOC ---
HPI Comments 58-year-old female complaining of chest pain which started approximate 1 hour ago. Patient reports 8/10 pain. Tightened nature. Took a nitro with no help. Patient reports 8/10 pain in the emergency department. Nothing makes it better, nothing makes it worse. No shortness a breath. Patient does report a history of angina. Patient states only needing to take her nitro once in the last two years. Chief Complaint: Chest Pain Time Seen by MD: 18:53 Primary Care Provider: Augusto Reviewed Notes: Nurses Notes Allergies: Coded Allergies: Latex (Verified Allergy, Mild, 03/05/18) INCLUDING TAPE Procaine (Verified Allergy, Unknown, 03/12/14) Home Meds Active Scripts Mesalamine (DELZICOL) 400 Mg Cap, 800 MG PO TID for 10 Days, #60 CAP Prov:TED HUSSEIN EQUITY STRUCTURER 10/20/23 Acetaminophen (Acetaminophen) 500 Mg Tab, 500 MG PO QIDP, #30 TAB 0 Refills Prov:PHILIP CABRERA 12/27/22 Albuterol Sulfate (Albuterol Sulfate Hfa) 108 Mcg/Act Aer, 108 MCG IN BID PRN for 10 Days, #1 AER 0 Refills Prov:LILI LUNSFORD DO 12/01/22 Meclizine HCl (Meclizine 25) 25 Mg Tab, 25 MG PO Q8HP PRN, #10 TAB Prov:BALTAZAR MADDEN PAC 11/04/22 Hydrocodone-Acetaminophen (Hydrocodone/Acetaminophen 5-325 mg) 1 Tab Tab, 1 TAB PO [id number] PRN for 3 Days, #6 TAB Prov:FLY JONES DO 10/25/22 Reported Medications Baclofen (Baclofen) 10 Mg Tab, 20 MG PO Q8HR for 30 Days, MG 11/28/23 Potassium Chloride (POTASSIUM CHLORIDE CR) 10 Meq Tb, 10 MEQ PO, TAB 11/28/23 Cholestyramine (Cholestyramine) 4 Gm/Dose Pow, PO 10/18/23 Tirzepatide (Mounjaro) 7.5 Mg/0.5 Ml Inj, SC 10/18/23 Sitagliptin Phosphate (Januvia) 100 Mg Tab, 1 TAB PO DAILY 10/18/23 Clopidogrel Bisulfate (CLOPIDOGREL) 75 Mg Tab, 1 TAB PO DAILY 10/18/23 Furosemide (Furosemide) 40 Mg Tab, 1 TAB PO BID 10/18/23 Atorvastatin Calcium (ATORVASTATIN CALCIUM) 20 Mg Tab, 1 TAB PO DAILY 10/17/23 Cholecalciferol (Vitamin D-3 Super Strengt) 2,000 Unit Tab, 1 TAB PO DAILY 10/17/23 Gabapentin (Gabapentin) 300 Mg Cap, 1 CAP PO Q8H 10/17/23 Aspirin (Aspirin Low Dose) 81 Mg Tab, 1 TAB PO DAILY 10/17/23 Balsalazide Disodium (Balsalazide Disodium) 750 Mg Cap, PO 10/17/23 Information Source: Patient Mode of Arrival: EMS Past Medical History PAST MEDICAL HISTORY: Angina, CAD, CVA, DM, High Lipids, Kidney Stones Surgical History: Cholecystectomy, Hernia Repair MANAGER DEMAND History: No Pertinent MANAGER DEMAND History Family History Family History: Reviewed,noncontributory to illness Social History Smoker: Non-Smoker Alcohol: Denies ETOH Use Drugs: Denies Drug Use Lives In: Home Constitutional: denies: chills, diaphoresis, fatigue, fever, malaise, sweats, weakness, others EENTM: denies: blurred vision, double vision, ear bleeding, ear discharge, ear drainage, ear pain, ear ringing, eye pain, eye redness, hearing loss, mouth pain, mouth swelling, nasal discharge, nose bleeding, nose congestion, nose pain, photophobia, tearing, throat pain, throat swelling, voice changes, others Respiratory: denies: cough, hemoptysis, orthopnea, SOB at rest, shortness of breath, SOB with excertion, stridor, wheezing, others Cardiovascular: reports: chest pain; denies: dizzy spells, diaphoresis, Dyspnea on exertion, edema, irregular heart beat, left arm pain, lightheadedness, palpitations, PND, syncope, others Gastrointestinal: denies: abdomen distended, abdominal pain, blood streaked bowels, constipated, diarrhea, dysphagia, difficulty swallowing, hematemesis, melena, nausea, poor appetite, poor fluid intake, rectal bleeding, rectal pain, vomiting, others Genitourinary: denies: abnormal vagina bleeding, burning, dyspareunia, dysuria, flank pain, frequency, hematuria, incontinence, pain, , vagina discharge, urgency, others Neurological: denies: dizziness, fainting, headache, left sided numbness, left sided weakness, numbness, paresthesia, pre-existing deficit, right sided numbness, right sided weakness, seizure, speech problems, tingling, tremors, weakness, others Musculoskeletal: denies: back pain, gout, joint pain, joint swelling, muscle pain, muscle stiffness, neck pain, others Integumetry: denies: bruises, change in color, change in hair/nails, dryness, laceration, lesions, lumps, rash, wounds, others Allergic/Immunocompromised: denies: Difficulty Healing, Frequent Infections, Hives, Itching, others Hematologic/Lymphatic: denies: anemia, blood clots, easy bleeding, easy bruising, swollen glands, others Physical Exam General Appearance: No Apparent Distress, Normal HEENT: Normal ENT Inspection, Pharynx Normal, TMs Normal Neck: Full Range of Motion, Non-Tender, Normal, Normal Inspection Respiratory: Chest Non-Tender, Lungs Clear, No Accessory Muscle Use, No Respiratory Distress, Normal Breath Sounds Cardiovascular: No Edema, No JVD, No Murmur, No Gallop, Normal Peripheral Pulses, Regular Rate/Rhythm, Other (Chest pain reproducible with palpation of the left-sided anterior chest wall) Breast Exam: Deferred Gastrointestinal: No Organomegaly, Non Tender, No Pulsatile Mass, Normal Bowel Sounds, Soft Genitalia: Deferred Pelvic: Deferred Rectal: Deferred Extremities: No calf tenderness, Normal capillary refill, Normal inspection, Normal range of motion, Non-tender, No pedal edema Musculoskeletal : Apperance: Normal Neurologic: Alert, career placement specialist II-XII nml as Tested, No Motor Deficits, Normal Affect, Normal Mood, No Sensory Deficits Cerebellar Function: Normal Reflexes: Normal Skin: Dry, Normal Color, Warm Lymphatic: No Adenopathy Was a procedure done? Was a procedure done?: No CP Differential Dx Differential Diagnosis: Angina, Anxiety / Panic Attack, Atrial Dysrhythmia, OK X-Ray, Labs, Meds, VS Vital Signs Date Time Temp Pulse Resp B/P (MAP) Pulse Ox O2 Delivery O2 Flow Rate FiO2 02/25/24 19:46 70 02/25/24 18:46 69 02/25/24 18:45 98.7 71 18 110/74 (86) 96 Lab Test 02/25/24 21:03 02/25/24 19:43 Range/Units Troponin I High Sensitivity < 3 L < 3 L </=34 ng/L White Blood Count 7.4 4.4-10.8 10^3/uL Red Blood Count 4.78 4.0-5.20 10^6/uL Hemoglobin 14.5 12.2-16.2 g/dL Hematocrit 43.1 36.0-46.0 % Mean Corpuscular Volume 90.0 80.0-100.0 fL Mean Corpuscular Hemoglobin 30.4 28.0-32.0 pg Mean Corpuscular Hemoglobin Concent 33.8 32.0-36.0 g/dL Red Cell Distribution Width 14.9 H 11.8-14.3 % Platelet Count 220 140-450 10^3/uL Mean Platelet Volume 8.5 6.9-10.8 fL Neutrophils (%) (Auto) 65.0 37.0-80.0 % Lymphocytes (%) (Auto) 27.6 10.0-50.0 % Monocytes (%) (Auto) 4.3 0.0-12.0 % Eosinophils (%) (Auto) 2.4 0.0-7.0 % Basophils (%) (Auto) 0.7 0.0-2.0 % Neutrophils # (Auto) 4.8 1.6-8.6 10 ^3/uL Lymphocytes # (Auto) 2.0 0.4-5.4 10 ^3/uL Monocytes # (Auto) 0.3 0-1.3 10 ^3/uL Eosinophils # (Auto) 0.2 0-0.8 10 ^3/uL Basophils # (Auto) 0 0-0.2 10 ^3/uL Nucleated Red Blood Cells 0.2 % Prothrombin Time 10.1 9.3-11.8 sec Prothrombin Time INR 0.95 0.9-1.15 Activated Partial Thromboplast Time 23.6 L 24.5-34.5 SEC Sodium Level 147 H 136-145 mmol/L Potassium Level 4.1 3.5-5.1 mmol/L Chloride Level 108 H 98-107 mmol/L Carbon Dioxide Level 29 20-31 mmol/L Anion Gap 10 5-15 Blood Urea Nitrogen 16 9-23 mg/dL Creatinine 1.16 H 0.550-1.02 mg/dL Glomerular Filtration Rate Calc 54 >90 mL/min BUN/Creatinine Ratio 13.8 10.0-20.0 Serum Glucose 160 H 74-106 mg/dL Calcium Level 9.9 8.7-10.4 mg/dL Total Bilirubin 0.3 0.2-1.0 mg/dL Aspartate Amino Transferase (AST) 10 L 13-40 U/L Alanine Aminotransferase (ALT) < 9 7-40 U/L Alkaline Phosphatase 127 H 46-116 U/L Total Protein 6.7 5.7-8.2 g/dL Albumin 4.6 3.2-4.8 g/dL X-Ray, Labs, Meds, VS Comment Imaging: X-rays and CT scans were reviewed and interpreted by this provider, imaging shows no fractures and no pathological disease. Pending radiology review. Laboratory: Labs reviewed and interpreted by this provider. No significant abnormalities noted. Patient has prior medical visits reviewed. Med reconciliation performed Vital signs reviewed Time of 1ST Reevaluation: 23:59 Reevaluation 1ST: Improved Patient Education/Counseling: Diagnosis, Treatment, Need For Follow Up (Patient advised to follow-up in the emergency room in the next 24 to 48 hours if symptoms do not improve. Advised follow-up with PCP in the next 3 to 5 days. Patient verbalized understanding. ) Family Education/Counseling: Diagnosis Departure 1 Departure Time of Disposition: 23:59 Impression: Primary Impression: Angina pectoris Disposition: 01 HOME / SELF CARE / HOMELESS Condition: Fair Discharged With: Self Critical Care Note Critical Care Time?: No Stability Stability form required: No Heart Score Heart Score: Heart Score Response (Comments) Value History Slightly Suspicious 0 EKG Normal 0 Age 45-64 1 Risk Factors 1 or 2 risk factors 1 Troponin Normal limit 0 Total 2 PAUL SALDAÑA Feb 26, 2024 00:00
[2024-02-26] MEDS: ONDANSETRON HCL 4 MG/2 ML VIAL IV ONE (00:53)
[2024-02-26] MEDS: MORPHINE SULFATE 4 MG/ML SYR/VIAL IV ONE (00:53)
[2024-02-26 01:00] VITALS: BP 111/69; PULSE 79; RESP 18; TEMP 97.9; O2SAT 97
--- NOTE | 2024-02-26 06:32 | ECG ---
[facility] Test Date: 2024-02-25 Test Time: 19:46:43 Pat Name: KAVYA TEJEDA Department: ED Room: Gender: F Parking Officer: DAVID : 1965 Requested By: SIVA DESHPANDE Order Number: [id number] Reading MD: Measurements Intervals [place] Rate: 70 P: 27 IN: 147 QRS: -42 QRSD: 99 T: -5 QT: 538 QTc: 581 Interpretive Statements Sinus rhythm Left axis deviation Abnormal R-wave progression, early transition Nonspecific T abnrm, anterolateral leads Prolonged QT interval Please click the below link to view image of tracing.
--- NOTE | 2024-02-26 06:32 | ECG ---
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
== END 2024-02-26 01:04 | disposition home or self-care (01) ==
LOC: ER 18:41 → EDBD 18:41 → ER 02-26 01:04
DX: I25.119 Atherosclerotic heart disease of native coronary artery with unspecified angina pectoris (principal); E11.9 Type 2 diabetes mellitus without complications; E78.5 Hyperlipidemia, unspecified; Z79.899 Other long term (current) drug therapy; Z79.84 Long term (current) use of oral hypoglycemic drugs; Z87.442 Personal history of urinary calculi; Z90.49 Acquired absence of other specified parts of digestive tract; Z90.89 Acquired absence of other organs
CPT/HCPCS: 36415; 71045; 80053; 84484; 85025; 85610; 85730; 93005

== ENCOUNTER 2024-03-18 08:36 | Emergency (ER) | payer MEDICARE, MEDICAID ==
[~2024-03-18] VITALS: Ht 157.5 cm; Wt 80.5 kg
[2024-03-18] MEDS ORDERED: IBUP-1454 PO (10:13)
[2024-03-18] MEDS ORDERED: PENI500T2 PO (10:13)
--- NOTE | 2024-03-18 10:13 | ED.PDOC ---
SOB-HPI HPI Comments Portions of this chart may have been created with an modal fluency direct voice recognition software. Occasional wrong-word or "sound-alike" substitutions may have occurred due to the inherent limitations of voice recognition software. Please read the chart carefully and recognize, using context, where these substitutions have occurred. This is a pleasant 58-year-old female that reports symptoms of strep throat. Reports that her grandson had strep throat and patient and complains of sore throat, cough, runny nose. Denies fevers chills night sweats unintentional weight loss Denies persistent chest pain, shortness of breath, leg swelling Denies history of asthma nor any breathing conditions Denies history of pneumonia Denies recent international travel Chief Complaint: Flu like Time Seen by MD: 09:08 Primary Care Provider: Augusto Reviewed notes: Nurses Notes, Medications, Allergies Information Source: Patient Mode of Arrival: Ambulatory Past Medical History PAST MEDICAL HISTORY: Angina, CAD, CVA, DM, High Lipids, Kidney Stones Surgical History: Cholecystectomy, Hernia Repair WEB CONSULTANT History: No Pertinent WEB CONSULTANT History Family History Family History: Reviewed,noncontributory to illness Social History Smoker: Non-Smoker Alcohol: Denies ETOH Use Drugs: Denies Drug Use Lives In: Home All Other Systems: Reviewed and Negative (Per HPI) Physical Exam General Appearance: No Apparent Distress, Normal HEENT: Head (Normocephalic), Normal ENT Inspection, Pharynx Normal (Uvula midline. No tonsillar exudate. Moist mucous membranes), TMs Normal Neck: Full Range of Motion, Non-Tender, Normal, Normal Inspection Respiratory: Chest Non-Tender, Lungs Clear, No Accessory Muscle Use, No Respiratory Distress, Normal Breath Sounds Cardiovascular: No Edema, No JVD, No Murmur, No Gallop, Normal Peripheral Pulses, Regular Rate/Rhythm Breast Exam: Deferred Gastrointestinal: No Organomegaly, Non Tender, No Pulsatile Mass, Normal Bowel Sounds, Soft Genitalia: Deferred Pelvic: Deferred Rectal: Deferred Extremities: No calf tenderness, Normal capillary refill, Normal inspection, Normal range of motion, Non-tender, No pedal edema Musculoskeletal : Apperance: Normal Neurologic: Alert, 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 Was a procedure done?: No Differential Dx Differential Diagnosis: Bronchitis, URI, Other X-Ray, Labs, Meds, VS Vital Signs Date Time Temp Pulse Resp B/P (MAP) Pulse Ox O2 Delivery O2 Flow Rate FiO2 03/18/24 11:58 75 18 96 Room Air 03/18/24 11:58 97.5 75 18 95/66 (76) 96 97.5 03/18/24 08:50 99.8 86 18 133/75 (94) 97 X-Ray, Labs, Meds, VS Comment She will be treated for strep throat infection Penicillin V Encouraged fluid intake Acetaminophen to reduce pain/fever NSAIDs to reduce pain/fever Warm salt water gargles Throat lozenges Humidified air Return precautions given Worsening pain Fevers past 48 hours after antibiotics Any neck pain, headache, vision issues, or other concerns Time of 1ST Reevaluation: 10:12 Reevaluation 1ST: Improved Patient Education/Counseling: Diagnosis, Treatment Family Education/Counseling: Diagnosis, Treatment Departure 1 Departure Time of Disposition: 10:12 Impression: Primary Impression: Strep pharyngitis Disposition: 01 HOME / SELF CARE / HOMELESS Condition: Stable e-Prescriptions Lidocaine HCl (Mouth-Throat) (Lidocaine HCl Viscous) 2 % [place] 15 ML MT TID PRN for 3 Days, #300 ML 0 Refills Prov: MIAN ROMO NP 03/18/24 Penicillin V Potassium (Veetids) 500 Mg Tab 1 TAB PO BID for 10 Days, #20 TAB 0 Refills Prov: MIAN ROMO NP 03/18/24 Discharged With: Self Critical Care Note Critical Care Time?: No Stability Stability form required: No Heart Score Heart Score: Heart Score Response (Comments) Value History N/A 0 EKG N/A 0 Age N/A 0 Risk Factors N/A 0 Troponin N/A 0 Total 0 MIAN ROMO NP Mar 18, 2024 10:13
[2024-03-18] MEDS ORDERED: LIDO2SOL26 MT (11:46)
[2024-03-18 11:58] VITALS: BP 95/66; PULSE 75; RESP 18; TEMP 97.5; O2SAT 96
== END 2024-03-18 10:38 | disposition home or self-care (01) ==
LOC: ER 08:36
DX: J02.0 Streptococcal pharyngitis (principal); E11.9 Type 2 diabetes mellitus without complications; I25.10 Atherosclerotic heart disease of native coronary artery without angina pectoris; E78.5 Hyperlipidemia, unspecified; Z86.73 Personal history of transient ischemic attack (TIA), and cerebral infarction without residual deficits; Z90.49 Acquired absence of other specified parts of digestive tract; Z98.890 Other specified postprocedural states

== ENCOUNTER 2024-04-29 17:14 | Inpatient (IN) | payer MEDICARE, MEDICAID ==
[~2024-04-29] VITALS: Ht 162.6 cm; Wt 89.5 kg
[~2024-04-29 17:14] MED LIST changes: +LIDO2SOL26 MT; +PENI500T2 PO
--- NOTE | 2024-04-29 17:35 | ED.PDOC ---
History of Present Illness HPI Comments 58 Y/O F brought in by ambulance with PMHX of CVA, angina, HTN, presents to the ED for CC of left sided numbness. Patient states, that she has been experiencing left sided tingling/numbness that radiates to her left flank since 0700 this morning (04/29/23). Patient relays, that she has a left sided deficit due to a previous stroke. Patient denies any social history. Patient denies dysuria, hematuria, fever, chills, or N/V/D. No other symptoms or modifying factors at this time. Time Seen by MD: 17:00 Primary Care Provider: Augusto Reviewed Notes: Nurses Notes, Seamer Elastic Band Notes, Medications, Allergies Allergies: Coded Allergies: Latex (Verified Allergy, Mild, 03/05/18) INCLUDING TAPE Procaine (Verified Allergy, Unknown, 03/12/14) Home Meds Active Scripts Lidocaine HCl (Mouth-Throat) (Lidocaine HCl Viscous) 2 % [place], 15 ML MT TID PRN for 3 Days, #300 ML 0 Refills Prov:MIAN ROMO BOTTOM IRONER 03/18/24 Penicillin V Potassium (Veetids) 500 Mg Tab, 1 TAB PO BID for 10 Days, #20 TAB 0 Refills Prov:MIAN ROMO BOTTOM IRONER 03/18/24 Mesalamine (DELZICOL) 400 Mg Cap, 800 MG PO TID for 10 Days, #60 CAP Prov:TED HUSSEIN BOTTOM IRONER 10/20/23 Acetaminophen (Acetaminophen) 500 Mg Tab, 500 MG PO QIDP, #30 TAB 0 Refills Prov:PHILIP CABRERA 12/27/22 Albuterol Sulfate (Albuterol Sulfate Hfa) 108 Mcg/Act Aer, 108 MCG IN BID PRN for 10 Days, #1 AER 0 Refills Prov:LILI LUNSFORD DO 12/01/22 Meclizine HCl (Meclizine 25) 25 Mg Tab, 25 MG PO Q8HP PRN, #10 TAB Prov:BALTAZAR MADDEN PAC 11/04/22 Hydrocodone-Acetaminophen (Hydrocodone/Acetaminophen 5-325 mg) 1 Tab Tab, 1 TAB PO [id number] PRN for 3 Days, #6 TAB Prov:FLY JONES DO 10/25/22 Reported Medications Baclofen (Baclofen) 10 Mg Tab, 20 MG PO Q8HR for 30 Days, MG 11/28/23 Potassium Chloride (POTASSIUM CHLORIDE CR) 10 Meq Tb, 10 MEQ PO, TAB 11/28/23 Cholestyramine (Cholestyramine) 4 Gm/Dose Pow, PO 10/18/23 Tirzepatide (Mounjaro) 7.5 Mg/0.5 Ml Inj, SC 10/18/23 Sitagliptin Phosphate (Januvia) 100 Mg Tab, 1 TAB PO DAILY 10/18/23 Clopidogrel Bisulfate (CLOPIDOGREL) 75 Mg Tab, 1 TAB PO DAILY 10/18/23 Furosemide (Furosemide) 40 Mg Tab, 1 TAB PO BID 10/18/23 Atorvastatin Calcium (ATORVASTATIN CALCIUM) 20 Mg Tab, 1 TAB PO DAILY 10/17/23 Cholecalciferol (Vitamin D-3 Super Strengt) 2,000 Unit Tab, 1 TAB PO DAILY 10/17/23 Gabapentin (Gabapentin) 300 Mg Cap, 1 CAP PO Q8H 10/17/23 Aspirin (Aspirin Low Dose) 81 Mg Tab, 1 TAB PO DAILY 10/17/23 Balsalazide Disodium (Balsalazide Disodium) 750 Mg Cap, PO 10/17/23 Information Source: Patient, Emergency Med Personnel Mode of Arrival: EMS Severity: Moderate Timing: Hours Duration: Since onset Past Medical History PAST MEDICAL HISTORY: Angina, CAD, CVA, DM, High Lipids, Kidney Stones Surgical History: Cholecystectomy, Hernia Repair SENIOR PATROL AGENT History: No Pertinent SENIOR PATROL AGENT History Family History Family History: Reviewed,noncontributory to illness Social History Smoker: Non-Smoker Alcohol: Denies ETOH Use Drugs: Denies Drug Use Lives In: Home Constitutional: denies: chills, diaphoresis, fatigue, fever, malaise, sweats, weakness, others EENTM: denies: blurred vision, double vision, ear bleeding, ear discharge, ear drainage, ear pain, ear ringing, eye pain, eye redness, hearing loss, mouth pain, mouth swelling, nasal discharge, nose bleeding, nose congestion, nose pain, photophobia, tearing, throat pain, throat swelling, voice changes, others Respiratory: denies: cough, hemoptysis, orthopnea, SOB at rest, shortness of breath, SOB with excertion, stridor, wheezing, others Cardiovascular: reports: chest pain; denies: dizzy spells, diaphoresis, Dyspnea on exertion, edema, irregular heart beat, left arm pain, lightheadedness, palpitations, PND, syncope, others Gastrointestinal: denies: abdomen distended, abdominal pain, blood streaked bowels, constipated, diarrhea, dysphagia, difficulty swallowing, hematemesis, melena, nausea, poor appetite, poor fluid intake, rectal bleeding, rectal pain, vomiting, others Genitourinary: denies: abnormal vagina bleeding, burning, dyspareunia, dysuria, flank pain, frequency, hematuria, incontinence, pain, , vagina discharge, urgency, others Neurological: reports: left sided numbness, left sided weakness, numbness; denies: dizziness, fainting, headache, paresthesia, pre-existing deficit, right sided numbness, right sided weakness, seizure, speech problems, tingling, tremors, weakness, others Musculoskeletal: denies: back pain, gout, joint pain, joint swelling, muscle pain, muscle stiffness, neck pain, others Integumetry: denies: bruises, change in color, change in hair/nails, dryness, laceration, lesions, lumps, rash, wounds, others Allergic/Immunocompromised: denies: Difficulty Healing, Frequent Infections, Hives, Itching, others Endocrine: denies: excessive hunger, excessive sweating, excessive thirst, excessive urination, flushing, intolerance to cold, intolerance to heat, unexplained weight gain, unexplained weight loss, others Psychiatric: denies: anxiety, bipolar disorder, depression, hopeless, panic disorder, schizophrenia, sleepless, suicidal, others All Other Systems: Reviewed and Negative Physical Exam General Appearance: Moderate Distress, Obese HEENT: Normal ENT Inspection, Pharynx Normal, TMs Normal Neck: Full Range of Motion, Non-Tender, Normal, Normal Inspection Respiratory: Chest Non-Tender, Lungs Clear, No Accessory Muscle Use, No Respiratory Distress, Normal Breath Sounds Cardiovascular: No Edema, No JVD, No Murmur, No Gallop, Normal Peripheral Pulses, Regular Rate/Rhythm Breast Exam: Deferred Gastrointestinal: No Organomegaly, Non Tender, No Pulsatile Mass, Normal Bowel Sounds, Soft Genitalia: Deferred Pelvic: Deferred Rectal: Deferred Extremities: No calf tenderness, Normal capillary refill, No pedal edema Musculoskeletal : Apperance: Normal Neurologic: Alert, respiratory physician II-XII nml as Tested, Motor Weakness (Left-sided weakness), No Motor Deficits, Normal Affect, Normal Mood, No Sensory Deficits Cerebellar Function: Normal Reflexes: Normal Skin: Dry, Normal Color, Warm Lymphatic: No Adenopathy Was a procedure done? Was a procedure done?: No EKG EKG : Pulse Rate (adult): 66 Fabius: LAD Block: None Hypertrophy: None ST: Normal Differential Dx Considerations may include: Kidney stones, CVA, UTI, pyelonephritis X-Ray, Labs, Meds, VS Vital Signs Date Time Temp Pulse Resp B/P (MAP) Pulse Ox O2 Delivery O2 Flow Rate FiO2 04/29/24 18:40 74 93 Room Air* 0 21 04/29/24 18:30 98.2 79 18 104/56 (72) 94 98.2 04/29/24 17:35 66 04/29/24 17:20 97.7 80 20 117/70 (86) 94 04/29/24 17:19 66 Lab Test 04/29/24 17:45 Range/Units White Blood Count 7.1 4.4-10.8 10^3/uL Red Blood Count 4.72 4.0-5.20 10^6/uL Hemoglobin 14.1 12.2-16.2 g/dL Hematocrit 41.9 36.0-46.0 % Mean Corpuscular Volume 88.8 80.0-100.0 fL Mean Corpuscular Hemoglobin 29.8 28.0-32.0 pg Mean Corpuscular Hemoglobin Concent 33.6 32.0-36.0 g/dL Red Cell Distribution Width 14.6 H 11.8-14.3 % Platelet Count 197 140-450 10^3/uL Mean Platelet Volume 8.5 6.9-10.8 fL Neutrophils (%) (Auto) 66.3 37.0-80.0 % Lymphocytes (%) (Auto) 28.1 10.0-50.0 % Monocytes (%) (Auto) 2.5 0.0-12.0 % Eosinophils (%) (Auto) 2.5 0.0-7.0 % Basophils (%) (Auto) 0.6 0.0-2.0 % Neutrophils # (Auto) 4.7 1.6-8.6 10 ^3/uL Lymphocytes # (Auto) 2.0 0.4-5.4 10 ^3/uL Monocytes # (Auto) 0.2 0-1.3 10 ^3/uL Eosinophils # (Auto) 0.2 0-0.8 10 ^3/uL Basophils # (Auto) 0 0-0.2 10 ^3/uL Nucleated Red Blood Cells 0.3 % Sodium Level 141 136-145 mmol/L Potassium Level 4.3 3.5-5.1 mmol/L Chloride Level 109 H 98-107 mmol/L Carbon Dioxide Level 24 20-31 mmol/L Anion Gap 8 5-15 Blood Urea Nitrogen 10 9-23 mg/dL Creatinine 0.87 0.550-1.02 mg/dL Glomerular Filtration Rate Calc 76 >90 mL/min BUN/Creatinine Ratio 11.5 10.0-20.0 Serum Glucose 255 H 74-106 mg/dL Calcium Level 9.4 8.7-10.4 mg/dL Total Bilirubin 0.4 0.2-1.0 mg/dL Aspartate Amino Transferase (AST) 17 13-40 U/L Alanine Aminotransferase (ALT) < 9 7-40 U/L Alkaline Phosphatase 109 46-116 U/L Troponin I High Sensitivity < 3 L </=34 ng/L Total Protein 6.1 5.7-8.2 g/dL Albumin 4.2 3.2-4.8 g/dL Lipase 25 12-53 U/L IV Hep-Lock was established The patient had a CBC done which is negative The chemistry panel is within normal limits except for hyperglycemia at [address] scan of the abdomen and pelvis shows: IMPRESSION: 1. Mild left hydronephrosis and hydroureter without obstructing calculi may reflect a recently passed stone versus pyelonephritis. Evaluation for pyelone phritis is limited without IV contrast. Recommend clinical and biochemical correlation. 2. Mild fecal retention. 3. Scattered colonic diverticula without diverticulitis. The patient was being given normal saline as a bolus The patient was given Toradol IV push for the pain The patient will be admitted to the hospitalist We feel that the patient has left-sided weakness is most likely chronic from a previous CVA Images Reviewed?: Images reviewed and evaluated by me Time of 1ST Reevaluation: 17:30 Reevaluation 1ST: Unchanged Time of 2ND Reevaluation: 18:59 Reevaluation 2ND: Unchanged Patient Education/Counseling: Diagnosis, Treatment, Prognosis Family Education/Counseling: No Family Present Departure 1 Departure Time of Disposition: 19:00 Impression: Primary Impression: Ureterolithiasis Additional Impression: Intractable abdominal pain Disposition: ADMITTED INPATIENT Admit to: Med Surg Condition: Fair Critical Care Note Critical Care Time?: No Stability Stability form required: Yes Unstable for transfer: ED Physician Assesment (Clinical assesment) Heart Score Heart Score: Heart Score Response (Comments) Value History N/A 0 EKG N/A 0 Age N/A 0 Risk Factors N/A 0 Troponin N/A 0 Total 0 I personally scribed for SEAN ZEPEDA MD ([email or web address]) on 04/29/24 at 17:35. E lectronically submitted by Karen Miles [email or web address]). SEAN ZEPEDA MD Apr 29, 2024 17:35
--- NOTE | 2024-04-29 17:37 | ECG ---
[facility] Test Date: 2024-04-29 Test Time: 17:19:24 Pat Name: KAVYA TEJEDA Department: ER Room: 0217 Gender: F Gallery Host: LINA : 1965 Requested By: SEAN ZEPEDA Order Number: [id number] Reading MD: Humberto Alvarez Measurements Intervals Vega Rate: 66 P: 21 AL: 149 QRS: -43 QRSD: 103 T: 5 QT: 618 QTc: 648 Interpretive Statements Sinus rhythm Left axis deviation Low voltage, precordial leads Abnormal R-wave progression, early transition Borderline T abnormalities, anterior leads Prolonged QT interval Electronically Signed On 05-01-2024 16:40:20 PST by Humberto Alvarez Please click the below link to view image of tracing.
[2024-04-29 18:16] LABS: Basophils # (auto) 0 10 ^3/uL (0-0.2); Basophils % (auto) 0.6 % (0.0-2.0); Eosinophils # (auto) 0.2 10 ^3/uL (0-0.8); Eosinophils % (auto) 2.5 % (0.0-7.0); Hematocrit 41.9 % (36.0-46.0); Hemoglobin 14.1 g/dL (12.2-16.2); Lymphocytes % (auto) 28.1 % (10.0-50.0); Mean Corpuscular Hemoglobin 29.8 pg (28.0-32.0); Mean Corpuscular Hgb Conc. 33.6 g/dL (32.0-36.0); Mean Corpuscular Volume 88.8 fL (80.0-100.0); Monocytes # (auto) 0.2 10 ^3/uL (0-1.3); Monocytes % (auto) 2.5 % (0.0-12.0); Neutrophils # (auto) 4.7 10 ^3/uL (1.6-8.6); Neutrophils % (auto) 66.3 % (37.0-80.0); Nucleated Red Blood Cells % 0.3 %; Platelet Count (auto) 197 10^3/uL (140-450); Red Blood Cells 4.72 10^6/uL (4.0-5.20); Red Cell Distribution Width 14.6 % (11.8-14.3); White Blood Cell 7.1 10^3/uL (4.4-10.8)
--- NOTE | 2024-04-29 18:18 | DVH ---
EXAM: CT HEAD WITHOUT CONTRAST HISTORY: left sided weakness COMPARISON: CT HEAD WITHOUT CONTRAST on DOS: 11/01/23, CT HEAD WITHOUT CONTRAST on DOS: 10/17/23, CT HE AD WITHOUT CONTRAST on DOS: 11/03/22 TECHNIQUE: Axial images were obtained and reformatted in coronal and sagittal planes. All CT scans at this medical facility are performed using dose modulation techniques as appropriate t o a performed exam including the following: Automated exposure control was utilized; adjustment of th e MA and/or KV according to patient size; and use of iterative reconstruction technique. CT Dose: CTDI volume is 52.01 mGy. Dose-length product is 833.8 mGy*cm FINDINGS: Supratentorial Region: No evidence for large acute territorial ischemia. No intracranial hemorrhage is noted. Posterior Fossa: No acute abnormality. Brainstem: Unremarkable. Sellar/Suprasellar Region: Unremarkable. Ventricles, Cisterns, Sulci: Age-appropriate. Orbits: Unremarkable. Paranasal Sinuses: Unremarkable. Mastoid Air Cells: Unremarkable. Vasculature: Unremarkable. Bones/Soft Tissues: No acute abnormality. Other: None. IMPRESSION: 1. No acute intracranial process.
--- NOTE | 2024-04-29 18:22 | DVH ---
Procedure: CT CT AB PEL WO CON-NO ORAL OR IV 04/29/2024 05:59 PM Indication: left flank pain Comparison Study: None available at time of dictation. Technique: Axial images were obtained and reformatted in coronal and sagittal planes. All CT scans at this medical facility are performed using dose modulation techniques as appropriate t o a performed exam including the following: Automated exposure control was utilized; adjustment of th e MA and/or KV according to patient size; and use of iterative reconstruction technique. CT Dose: CTDI volume is 22.14 mGy. Dose-length product is 1141.24 mGy*cm FINDINGS: Lower Chest: Unremarkable. Hepatobiliary: Gallbladder is surgically absent. Spleen: Unremarkable. Pancreas: Unremarkable. Adrenal Glands: Unremarkable. tract: The kidneys are normal in size bilaterally . Mild left hydronephrosis and hydroureter with out obstructive stone. . A subcentimeter nonobstructive left renal stone is seen measuring approxima tely 5 mm. The left kidney is lobular with areas of cortical scarring. The urinary bladder is unrem arkable. GI tract: The stomach is grossly normal in appearance. No evidence of small bowel obstruction. Scatte red colonic diverticula are noted without evidence of diverticulitis. Mild fecal retention noted thro ughout the large bowel without rectal fecal impaction. The appendix is normal. Lymphatics: No mesenteric, retroperitoneal or periportal lymphadenopathy. Vasculature: The abdominal aorta is normal in in caliber. Pelvic Organs: Retroverted uterus. Multiple calcified leiomyomas are noted in the aorta. No adnexal lesion is identified Bones/soft tissues: No acute abnormality. Other: None. IMPRESSION: 1. Mild left hydronephrosis and hydroureter without obstructing calculi may reflect a recently passed stone versus pyelonephritis. Evaluation for pyelonephritis is limited without IV contrast. Recommen d clinical and biochemical correlation. 2. Mild fecal retention. 3. Scattered colonic diverticula without diverticulitis.
[2024-04-29 18:25] LABS: Alkaline Phosphatase 109 U/L (46-116); Calcium 9.4 mg/dL (8.7-10.4); Carbon Dioxide 24 mmol/L (20-31)
[2024-04-29 18:26] LABS: Albumin 4.2 g/dL (3.2-4.8); Anion Gap 8 (5-15); BUN/Creatinine Ratio 11.5 (10.0-20.0); Bilirubin, Total 0.4 mg/dL (0.2-1.0); Blood Urea Nitrogen 10 mg/dL (9-23); Lipase 25 U/L (12-53); Potassium 4.3 mmol/L (3.5-5.1); Sodium 141 mmol/L (136-145); Total Protein 6.1 g/dL (5.7-8.2)
[2024-04-29 18:40] VITALS: PULSE 74; O2SAT 93
[2024-04-29 18:56] LABS: Alanine Aminotransferase < 9 U/L (7-40); Aspartate Aminotransferase 17 U/L (13-40); Chloride 109 mmol/L (98-107); Glucose 255 mg/dL (74-106)
[2024-04-29 20:00] VITALS: PULSE 65; RESP 16; O2SAT 97
[2024-04-29] MEDS: KETOROLAC TROMETH 30 MG/ML 1ML VIAL IV ONE (20:49)
[2024-04-29] MEDS: SODIUM CHLORIDE 0.9% 500 ML IVB ONE (20:49)
[2024-04-29 21:08] LABS: Urine Amorphous Crystal FEW /hpf (None Seen); Urine Bacteria FEW /hpf (None Seen); Urine Blood Negative /uL (Negative); Urine Clarity Clear (Clear); Urine Color Light-Yellow (Yellow); Urine Mucus FEW (None Seen); Urine Protein, UAD Negative (Negative); Urine Specific Gravity 1.012 (1.001-1.035); Urine Squamous Epithelial Cell FEW /hpf (<5); Urine Urobilinogen Normal (Negative); Urine WBC 21 /HPF (0-5)
[2024-04-29] MEDS ORDERED: ACETAMINOPHEN 325 MG TAB PO PRN (22:00)
--- NOTE | 2024-04-29 22:45 | DVHHPRES ---
History of Present Illness Resident Creating Document: DEBORA KIM RESDIENT History of Present Illness This is a 58-year-old female with past medical history of CVA (on the left side 2 years back, on the right side 1 year back, with residual weakness) diabetes mellitus type 2, Crohn disease, hypertension, coronary artery disease and degenerative disc disease at lumbar area, came to the hospital due to lower back pain. Per patient, she has chronic back pain due to a fall during childhood and since 2 years been using Elma 10 mg 4 times a days. Lower back pain has worsened since 1 day, localized and the central back and left side. She also reports left-sided numbness with mild pain and weakness, generalized weakness, mild chest discomfort and diarrhea. The patient use walker due to residual weakness after CVA. Patient denies fever, cough, shortness of breath, any trauma or fall history, and any recent changes in bowel and bladder habits. PMHx:CVA (on the left side 2 years back, on the right side 1 year back, with residual weakness) diabetes mellitus type 2, Crohn disease, hypertension, coronary artery disease and degenerative disc disease PSHx: Right-sided endarterectomy, after CVA, cholecystectomy and inguinal hernia repair Social history: Patient lives at home with the family, uses walker for mobility, ex-smoker, denies any other drug use Home medication: Aspirin, clopidogrel, mesalamine, Elma, simvastatin, doc usate, Allergic history: Lasix and procaine Review of Systems Review of Systems General: Reports generalized weakness HEENT: No headaches, visiual changes, hearing loss, tinnitus, nasal congestion and discharge, and sore throat. Cardiovascular: Reports mild chest Respiratory: No cough, and wheezing. Gastrointestinal: Reports constipation Genitourinary: No dysuria, hematuria, discharge, frequency, urgency, nocturia, incontinence, and urinary retention. Endocrine: No heat or cold intolerance, polydipsia, polyuria, and polyphagia. Neurological: Reports left-sided weakness and numbness Psychiatric: Denies depression, anxiety,or insomnia. Musculoskeletal: Reports severe lower back pain Skin: No rashes, itching, skin lesion, changes in hair, nail, skin texture and breast. Hematologic/Lymphatic: Denies easy bruising, bleeding tendencies, or lymph node enlargement. Allergies: Coded Allergies: Latex (Verified Allergy, Mild, 03/05/18) INCLUDING TAPE Procaine (Verified Allergy, Unknown, 03/12/14) Medications Current Medications Medications Dose Ordered Sig/Damon Route Start Time Stop Time Status Last Admin Dose Admin Acetaminophen/ Hydrocodone Bitart 1 tab Q8HP PRN PO 04/29/24 22:00 Ketorolac Tromethamine 15 mg Q6HPRN PRN IV 04/29/24 22:00 05/04/24 21:59 Acetaminophen 650 mg Q6HP PRN PO 04/29/24 22:00 Aspirin 81 mg DAILY PO 04/30/24 10:00 Mesalamine 400 mg TID PO 04/29/24 22:00 Atorvastatin Calcium 40 mg HS PO 04/29/24 22:00 Gabapentin 600 mg TID PO 04/29/24 22:00 Baclofen 10 mg Q8HP PRN PO 04/29/24 22:00 Exam Vital Signs Vital Signs Date Time Temp Pulse Resp B/P (MAP) Pulse Ox O2 Delivery O2 Flow Rate FiO2 04/29/24 20:00 65 16 97 Nasal Cannula* 2 28 04/29/24 20:00 98.1 114/63 (80) 98.1 Exam General Appearance: Alert, Oriented X3, Cooperative, in mild distress due to back pain HEENT: Atraumatic, PERRLA, EOMI, Mucous membrane moist/pink Respiratory: Clear to auscultation, Normal air movement Cardiovascular: Regular rate, Normal S1, Normal S2, No murmurs, no chest wall tenderness Abdominal: Normal bowel sounds, Soft, No tenderness, No hepatospenomegaly, No masses Extremities: No clubbing, No cyanosis, No edema, Normal pulses, No tenderness/swelling Skin: No rashes, No breakdown, No significant lesion Neuro: Tenderness on low back (lumbar area) at midline and left side, left side state leg test is positive Psych/Mental Status: Mental status NL, Mood NL Labs/Xrays Labs Test 04/29/24 20:30 04/29/24 17:45 Range/Units Urine Color Light-yellow Yellow Urine Clarity Clear Clear Urine pH 5.0 5.0-9.0 Urine Specific [place] 1.012 1.001-1.035 Urine Protein Negative Negative Urine Ketones Negative Negative Urine Blood Negative Negative /uL Urine Nitrite Negative Negative Urine Bilirubin Negative Negative Urine Urobilinogen Normal Negative mg/dL Urine Leukocyte Esterase 1+ Negative /uL Urine RBC 3 0 - 4 /hpf Urine Microscopic WBC 21 H 0-5 /HPF Urine Squamous Epithelial Cells Few <5 /hpf Urine Amorphous Crystals Few None Seen /hpf Urine Bacteria Few H None Seen /hpf Urine Mucus Few None Seen Urine Glucose 1+ H Normal mg/dL White Blood Count 7.1 4.4-10.8 10^3/uL Red Blood Count 4.72 4.0-5.20 10^6/uL Hemoglobin 14.1 12.2-16.2 g/dL Hematocrit 41.9 36.0-46.0 % Mean Corpuscular Volume 88.8 80.0-100.0 fL Mean Corpuscular Hemoglobin 29.8 28.0-32.0 pg Mean Corpuscular Hemoglobin Concent 33.6 32.0-36.0 g/dL Red Cell Distribution Width 14.6 H 11.8-14.3 % Platelet Count 197 140-450 10^3/uL Mean Platelet Volume 8.5 6.9-10.8 fL Neutrophils (%) (Auto) 66.3 37.0-80.0 % Lymphocytes (%) (Auto) 28.1 10.0-50.0 % Monocytes (%) (Auto) 2.5 0.0-12.0 % Eosinophils (%) (Auto) 2.5 0.0-7.0 % Basophils (%) (Auto) 0.6 0.0-2.0 % Neutrophils # (Auto) 4.7 1.6-8.6 10 ^3/uL Lymphocytes # (Auto) 2.0 0.4-5.4 10 ^3/uL Monocytes # (Auto) 0.2 0-1.3 10 ^3/uL Eosinophils # (Auto) 0.2 0-0.8 10 ^3/uL Basophils # (Auto) 0 0-0.2 10 ^3/uL Nucleated Red Blood Cells 0.3 % Sodium Level 141 136-145 mmol/L Potassium Level 4.3 3.5-5.1 mmol/L Chloride Level 109 H 98-107 mmol/L Carbon Dioxide Level 24 20-31 mmol/L Anion Gap 8 5-15 Blood Urea Nitrogen 10 9-23 mg/dL Creatinine 0.87 0.550-1.02 mg/dL Glomerular Filtration Rate Calc 76 >90 mL/min BUN/Creatinine Ratio 11.5 10.0-20.0 Serum Glucose 255 H 74-106 mg/dL Calcium Level 9.4 8.7-10.4 mg/dL Total Bilirubin 0.4 0.2-1.0 mg/dL Aspartate Amino Transferase (AST) 17 13-40 U/L Alanine Aminotransferase (ALT) < 9 7-40 U/L Alkaline Phosphatase 109 46-116 U/L Troponin I High Sensitivity < 3 L </=34 ng/L Total Protein 6.1 5.7-8.2 g/dL Albumin 4.2 3.2-4.8 g/dL Lipase 25 12-53 U/L Assessment/Plan Assessment/Plan History of recurrent CVA Patient complains of left-sided numbness and mild weakness Head CT scan shows no acute intracranial abnormalities Continue aspirin, atorvastatin and Plavix History of lumbar spine degenerative disc disease CT scan from 11/03/2022 shows, intervertebral disc space narrowing in the lower thoracic spine, L4-L5, and L5-S1 Continue home medicine of gabapentin, baclofen and Elma UTI, unspecified location CT scan shows, mild left hydronephrosis and hydroureter without obstructing dax culi may reflect a recently passed stone versus pyelonephritis Urinalysis shows UTI picture Urine culture Empiric antibiotic, Rocephin Diabetes mellitus type 2 Insulin moderate SS Dyslipidemia Continue atorvastatin Crohn disease Continue mesalamine Diverticulosis, without diverticulitis CT scan finding DIET: Diabetic diet GI PROPHYLAXIS:: Protonix BOWEL REGIMEN: Colace CODE STATUS: Goal of care discussed for more than 20 minutes, full code DISPOSITION: Med/surge Patient's status and paln discussed with the patient. Case discussed with Dr. Don Plan discussed with: Patient, Other (RN) My Orders Orders - DEBORA KIM RESDIKELLY Procedure Category Date Status Time Admit ADMIT 04/29/24 Transmitted 21:53 Stat Ekg For Chest YESSY 04/29/24 In Process Pain 21:53 Notify Of Changes YESSY 04/29/24 In Process From Base 21:53 Urine Bacterial TATA 04/29/24 Logged Culture 21:58 Sodium Chloride 0.9% PHA 04/29/24 In Process 22:00 Hydrocodone-Acet PHA 04/29/24 In Process 10/325mg Tab (Elma 22:00 Ketorolac Injection PHA 04/29/24 In Process (Toradol Injection) 22:00 Acetaminophen Tablet PHA 04/29/24 In Process (Tylenol Tablet) 22:00 Aspirin Tablet PHA 04/30/24 In Process 10:[address] Capsule PHA 04/29/24 In Process (Delzicol Delayed 22:00 Atorvastatin (Lipitor) PHA 04/29/24 In Process 22:00 Gabapentin Capsule PHA 04/29/24 In Process (Neurontin Capsule) 22:00 Baclofen Tablet PHA 04/29/24 In Process (Liorisal Tablet) 22:00 Chest Xray 1 View XY 04/29/24 Logged 21:58 Pt Request For Service PT 04/29/24 Logged 21:58 Date of Service: Apr 29, 2024 Billing Provider: BRAEDEN DON MD Common Visit Codes: [id number] INP/OBS CARE (HIGH) Secondary Visit Codes: 67665-USSEHYAS CARE PLAN 30 MINUTES DEBORA KIM Apr 29, 2024 22:45 BRAEDEN DON MD Apr 30, 2024 09:19
[2024-04-29] MEDS: GABAPENTIN 300 MG CAP PO SCH (23:35)
[2024-04-29] MEDS: ATORVASTATIN 20 MG TAB PO SCH (23:36)
[2024-04-29] MEDS: ASPirin 81 mg TAB PO ONE (23:37)
[2024-04-29] MEDS: SODIUM CHLORIDE 0.9% 1,000 ML IV ONE (23:37)
[2024-04-30] MEDS: MESALAMINE 400mg Delayed Release Cap PO SCH (00:26)
[2024-04-30] MEDS: BACLOFEN 10 MG TAB PO PRN (00:37)
[2024-04-30] MEDS: HYDROcodone-ACET 10/325MG TAB PO PRN (01:52)
[2024-04-30 03:22] LABS: Basophils # (auto) 0.1 10 ^3/uL (0-0.2); Basophils % (auto) 0.7 % (0.0-2.0); Eosinophils # (auto) 0.3 10 ^3/uL (0-0.8); Eosinophils % (auto) 3.1 % (0.0-7.0); Hematocrit 40.6 % (36.0-46.0); Hemoglobin 13.6 g/dL (12.2-16.2); Lymphocytes # (auto) 2.3 10 ^3/uL (0.4-5.4); Lymphocytes % (auto) 27.4 % (10.0-50.0); Mean Corpuscular Hemoglobin 29.9 pg (28.0-32.0); Mean Corpuscular Hgb Conc. 33.6 g/dL (32.0-36.0); Mean Corpuscular Volume 89.1 fL (80.0-100.0); Monocytes # (auto) 0.4 10 ^3/uL (0-1.3); Monocytes % (auto) 4.3 % (0.0-12.0); Neutrophils # (auto) 5.5 10 ^3/uL (1.6-8.6); Neutrophils % (auto) 64.5 % (37.0-80.0); Nucleated Red Blood Cells % 0.1 %; Platelet Count (auto) 190 10^3/uL (140-450); Red Blood Cells 4.56 10^6/uL (4.0-5.20); Red Cell Distribution Width 14.7 % (11.8-14.3); White Blood Cell 8.5 10^3/uL (4.4-10.8)
[2024-04-30 03:45] LABS: Albumin 3.6 g/dL (3.2-4.8); Alkaline Phosphatase 92 U/L (46-116); Anion Gap 9 (5-15); Aspartate Aminotransferase 13 U/L (13-40); BUN/Creatinine Ratio 17.1 (10.0-20.0); Bilirubin, Total 0.3 mg/dL (0.2-1.0); Blood Urea Nitrogen 12 mg/dL (9-23); Carbon Dioxide 23 mmol/L (20-31)
[2024-04-30 03:46] LABS: Alanine Aminotransferase < 9 U/L (7-40); Calcium 8.1 mg/dL (8.7-10.4); Chloride 113 mmol/L (98-107); Glucose 114 mg/dL (74-106); Potassium 3.5 mmol/L (3.5-5.1); Sodium 145 mmol/L (136-145); Total Protein 5.2 g/dL (5.7-8.2)
[2024-04-30] MEDS: cefTRIAXone 1GM/50ML D5W 50 ML IV ONE (03:53)
[2024-04-30] MEDS: CLOPIDOGREL BISULFATE 75 MG TAB PO ONE (03:53)
--- NOTE | 2024-04-30 04:13 | DVH ---
CHEST RADIOGRAPH Indication: Chest pain Technique: Single frontal view of the chest was obtained Comparison: XY CHEST XRAY 1 VIEW on DOS: 02/25/24 FINDINGS: Lines and Tubes: None Lungs: No focal consolidation. Pleura: No effusion. No pneumothorax. Cardiomediastinal contours: Unremarkable Bones: No acute osseous abnormality. IMPRESSION: 1. No acute cardiopulmonary disease.
[2024-04-30] MEDS: KETOROLAC TROMETH 30 MG/ML 1ML VIAL IV PRN (05:22)
--- NOTE | 2024-04-30 10:48 | DVHPN2 ---
Progress Note - Dictate Date Seen: Apr 30, 2024 Medical Necessity Reason Pt with a Central, PICC or Fol: No vital signs Vital Sign Date Time Temp Pulse Resp B/P (MAP) Pulse Ox O2 Delivery O2 Flow Rate FiO2 04/30/24 09:00 55 12 95/56 (69) 95 04/30/24 07:45 97.8 97.8 04/29/24 20:00 Nasal Cannula* 2 28 medications Current Medications Medications Dose Ordered Sig/Damon Route Start Time Stop Time Status Last Admin Dose Admin Acetaminophen/ Hydrocodone Bitart 1 tab Q8HP PRN PO 04/29/24 22:00 04/30/24 01:52 1 TAB Ketorolac Tromethamine 15 mg Q6HPRN PRN IV 04/29/24 22:00 05/04/24 21:59 04/30/24 05:22 15 MG Acetaminophen 650 mg Q6HP PRN PO 04/29/24 22:00 Aspirin 81 mg DAILY PO 04/30/24 10:00 Mesalamine 400 mg TID PO 04/29/24 22:00 Atorvastatin Calcium 40 mg HS PO 04/29/24 22:00 04/29/24 23:36 40 MG Gabapentin 600 mg TID PO 04/29/24 22:00 04/30/24 06:26 600 MG Baclofen 10 mg Q8HP PRN PO 04/29/24 22:00 04/30/24 00:37 10 MG Ceftriaxone Sodium 50 ml @ 100 mls/hr DAILY@09 IV 05/01/24 09:00 Clopidogrel Bisulfate 75 mg DAILY PO 05/01/24 10:00 objective General Appearance: alert, no distress HEENT: EOMI, PERRLA, normal external inspect of ears, no icterus, no nasal drainage Neck: no carotid bruit, no jugular venous distention (JVD), no lymphadenopathy Chest: normal thorax Respiratory: clear to auscultation, normal air movement Cardiovascular: regular rate and rhythm, no diastolic murmur, no jugular venous distention (JVD), no rub, no systolic murmur Abdominal: soft, no hepatomegaly, no mass, no splenomegaly, no tenderness Genitourinary: grossly normal external Musculoskeletal: no joint tenderness, no swelling Extremities: normal pulses, no calf tenderness, no clubbing, no cyanosis, no edema Skin: no bruising, no jaundice, no rash Neurological: alert, No focal deficit laboratory and microbiology Laboratory Tests 04/30/24 03:01 Test 04/30/24 03:01 Range/Units Serum Glucose 114 H 74-106 mg/dL Problem List 1. Acute cystitis w/o hematuria Monitor, send urine culture, continue IV abx 2. Chronic back pain Monitor, PRN pain meds 3. CAD Monitor, restart ASA 4. DM II with neuropathy Monitor, insulin ss, continue Gabapentin 5. Hx CVA with residual weakness Monitor, PT consult, restart Plavix Assessment/Plan Subjective: Patient is awake and alert. Objective: Patient was admitted for intractable back pain most likely due to UTI. Patient has a history of diabetes. Hemoglobin A1c is 8.0. Patient was started on a moderate dose insulin sliding scale. Patient is also complaining of chest pressure. Troponin levels are negative. Plan: Consult cardiology. Patient states she had an outpatient appointment with Dr. Nunez next week. Monitor EKG. Continue antibiotics. Continue pain medications. Plan discussed with: Patient, Other TED HUSSEIN NP Apr 30, 2024 10:48
[2024-04-30] MEDS ORDERED: DEXTROSE (50%) 50ML SYRG IV PRN (11:00)
[2024-04-30] MEDS: ASPirin 81 mg TAB PO SCH (12:00)
[2024-04-30] MEDS: MORPHINE SULFATE 4 MG/ML SYR/VIAL IV PRN (14:15)
[2024-04-30] MEDS: ACCU-CHEK COMFORT CURVE STRIP VI SCH (14:29)
[2024-04-30] MEDS: InsuLIN REG 1unit/0.01ml Soln (100units/ml) SC SCH ×2 (14:30→23:03)
[2024-04-30 23:13] VITALS: BP 106/69; PULSE 75; RESP 18; TEMP 98.7; O2SAT 95
[2024-04-30 23:51] VITALS: BP 108/63; PULSE 62; RESP 19; TEMP 98.2; O2SAT 96
[2024-05-01] VITALS (7 sets, daily range): BP systolic 92–119; BP diastolic 57–73; PULSE 62–78; RESP 16–19; TEMP 97.4–99.6; O2SAT 93–99
[2024-05-01] MEDS ORDERED: PARO1TAB33 (02:04)
[2024-05-01] MEDS ORDERED: PARO7.5C2 PO (02:04)
--- NOTE | 2024-05-01 07:35 | DVHINCON2 ---
Date of service: May 01, 2024 History of Present Illness HPI Patient is a 58-year-old female who presented with left-sided numbness/tingling and discomfort. This included left leg up to left arm. Does have low back pain also. Cardiology was involved for cardiac aspects of care. It is of note that the patient does have history of old CVA with left hemiparesis. She mentioned that the discomfort was worse than her usual problem. Home Meds Active Scripts Lidocaine HCl (Mouth-Throat) (Lidocaine HCl Viscous) 2 % [place], 15 ML MT TID PRN for 3 Days, #300 ML 0 Refills Prov:MIAN ROMO [employer] 03/18/24 Penicillin V Potassium (Veetids) 500 Mg Tab, 1 TAB PO BID for 10 Days, #20 TAB 0 Refills Prov:MIAN ROMO [employer] 03/18/24 Mesalamine (DELZICOL) 400 Mg Cap, 800 MG PO TID for 10 Days, #60 CAP Prov:TED HUSSEIN [employer] 10/20/23 Acetaminophen (Acetaminophen) 500 Mg Tab, 500 MG PO QIDP, #30 TAB 0 Refills Prov:PHILIP CABRERA 12/27/22 Albuterol Sulfate (Albuterol Sulfate Hfa) 108 Mcg/Act Aer, 108 MCG IN BID PRN for 10 Days, #1 AER 0 Refills Prov:LILI LUNSFORD DO 12/01/22 Meclizine HCl (Meclizine 25) 25 Mg Tab, 25 MG PO Q8HP PRN, #10 TAB Prov:BALTAZAR MADDEN PAC 11/04/22 Hydrocodone-Acetaminophen (Hydrocodone/Acetaminophen 5-325 mg) 1 Tab Tab, 1 TAB PO H63CITO PRN for 3 Days, #6 TAB Prov:FLY JONES DO 10/25/22 Reported Medications Paroxetine Hydrochloride (Paroxetine Hydrochloride) 20 Mg Tab, 1 DAILY 05/01/24 Baclofen (Baclofen) 10 Mg Tab, 20 MG PO Q8HR for 30 Days, MG 11/28/23 Potassium Chloride (POTASSIUM CHLORIDE CR) 10 Meq Tb, 10 MEQ PO, TAB 11/28/23 Cholestyramine (Cholestyramine) 4 Gm/Dose Pow, PO 10/18/23 Tirzepatide (Mounjaro) 7.5 Mg/0.5 Ml Inj, SC 10/18/23 Sitagliptin Phosphate (Januvia) 100 Mg Tab, 1 TAB PO DAILY 10/18/23 Clopidogrel Bisulfate (CLOPIDOGREL) 75 Mg Tab, 1 TAB PO DAILY 10/18/23 Furosemide (Furosemide) 40 Mg Tab, 1 TAB PO BID 10/18/23 Atorvastatin Calcium (ATORVASTATIN CALCIUM) 20 Mg Tab, 1 TAB PO DAILY 10/17/23 Cholecalciferol (Vitamin D-3 Super Strengt) 2,000 Unit Tab, 1 TAB PO DAILY 10/17/23 Gabapentin (Gabapentin) 300 Mg Cap, 1 CAP PO Q8H 10/17/23 Aspirin (Aspirin Low Dose) 81 Mg Tab, 1 TAB PO DAILY 10/17/23 Balsalazide Disodium (Balsalazide Disodium) 750 Mg Cap, PO 10/17/23 Past Medical History Others Past medical history includes diabetes mellitus, old history of CVA with residual aphasia and left hemiparesis, carotid artery disease, status post carotid endarterectomy, kidney stones, Crohn's disease, hypertension, morbid obesity, ulcerative colitis, CHF, old history of cholecystectomy, hernia repair, degenerative disc disease (lumbar spine) history of cervical cancer and its treatment/surgery and old history of uterine prolapse surgery. Uses a walker for ambulation (secondary to old CVA). Patient Family History: FH: cancer FH: liver cancer G8 MOTHER, , Cause: Liver cancer Family history: Alzheimer's disease G8 MOTHER, , Cause: Liver cancer, Onset:Unknown Family history: Cardiovascular disease G8 FATHER, , Cause: CHF (congestive heart failure), Onset:Unknown Family history: Diabetes mellitus G8 BROTHER, Onset:Unknown Thyroid disease 19 CHILD Thyroid disease 19 CHILD Smoker: No Hx (Negative) Drugs: None Review of Systems Cardiovascular: Chest Pain Musculoskeletal: Neck pain All Other Systems Fourteen point review of system was performed. Relevant findings as per above and as per HPI. Otherwise negative H&P Exam Vital Signs Vital Signs Date Time Temp Pulse Resp B/P (MAP) Pulse Ox O2 Delivery O2 Flow Rate FiO2 05/01/24 05:40 64 17 100/55 05/01/24 05:00 97.8 93 97.8 04/30/24 23:51 Nasal Cannula* 2 28 General Appeara: Well developed Head Exam: Normal inspection Neck Exam: Normal inspection Eye Exam: bilateral eye PERRL Mouth: Normal Inspection Pulmonary/Respiratory: Lungs clear Cardiovascular/Chest: Normal inspection, Regular rate, Diastolic murmur Peripheral Pulses: 2+ carotid (R), 2+ carotid (L), 2+ femoral (R), 2+ femoral (L), 2+ dorsalis pedis (R), 2+ dorsalis pedis (L), 2+ Radial (R), 2+ Radial (L) Abdominal Exam: Normal bowel sounds, Soft Neuro/Mental St: Alert, Oriented Appearance: Appropriate appearance Eye contact/ Speech: Cooperative Labs/Xrays Labs Test 05/01/24 06:21 04/30/24 03:01 04/29/24 20:30 04/29/24 17:45 Range/Units POC Glucose 152 H 70-106 mg/dl White Blood Count 8.5 4.4-10.8 10^3/uL Red Blood Count 4.56 4.0-5.20 10^6/uL Hemoglobin 13.6 12.2-16.2 g/dL Hematocrit 40.6 36.0-46.0 % Mean Corpuscular Volume 89.1 80.0-100.0 fL Mean Corpuscular Hemoglobin 29.9 28.0-32.0 pg Mean Corpuscular Hemoglobin Concent 33.6 32.0-36.0 g/dL Red Cell Distribution Width 14.7 H 11.8-14.3 % Platelet Count 190 140-450 10^3/uL Mean Platelet Volume 8.3 6.9-10.8 fL Neutrophils (%) (Auto) 64.5 37.0-80.0 % Lymphocytes (%) (Auto) 27.4 10.0-50.0 % Monocytes (%) (Auto) 4.3 0.0-12.0 % Eosinophils (%) (Auto) 3.1 0.0-7.0 % Basophils (%) (Auto) 0.7 0.0-2.0 % Neutrophils # (Auto) 5.5 1.6-8.6 10 ^3/uL Lymphocytes # (Auto) 2.3 0.4-5.4 10 ^3/uL Monocytes # (Auto) 0.4 0-1.3 10 ^3/uL Eosinophils # (Auto) 0.3 0-0.8 10 ^3/uL Basophils # (Auto) 0.1 0-0.2 10 ^3/uL Nucleated Red Blood Cells 0.1 % Sodium Level 145 136-145 mmol/L Potassium Level 3.5 3.5-5.1 mmol/L Chloride Level 113 H 98-107 mmol/L Carbon Dioxide Level 23 20-31 mmol/L Anion Gap 9 5-15 Blood Urea Nitrogen 12 9-23 mg/dL Creatinine 0.70 0.550-1.02 mg/dL Glomerular Filtration Rate Calc 99 >90 mL/min BUN/Creatinine Ratio 17.1 10.0-20.0 Serum Glucose 114 H 74-106 mg/dL Hemoglobin A1c 8.0 H <5.7 % A1C Calcium Level 8.1 L 8.7-10.4 mg/dL Total Bilirubin 0.3 0.2-1.0 mg/dL Aspartate Amino Transferase (AST) 13 13-40 U/L Alanine Aminotransferase (ALT) < 9 7-40 U/L Alkaline Phosphatase 92 46-116 U/L Troponin I High Sensitivity < 3 L </=34 ng/L Total Protein 5.2 L 5.7-8.2 g/dL Albumin 3.6 3.2-4.8 g/dL Urine Color Light-yellow Yellow Urine Clarity Clear Clear Urine pH 5.0 5.0-9.0 Urine Specific [place] 1.012 1.001-1.035 Urine Protein Negative Negative Urine Ketones Negative Negative Urine Blood Negative Negative /uL Urine Nitrite Negative Negative Urine Bilirubin Negative Negative Urine Urobilinogen Normal Negative mg/dL Urine Leukocyte Esterase 1+ Negative /uL Urine RBC 3 0 - 4 /hpf Urine Microscopic WBC 21 H 0-5 /HPF Urine Squamous Epithelial Cells Few <5 /hpf Urine Amorphous Crystals Few None Seen /hpf Urine Bacteria Few H None Seen /hpf Urine Mucus Few None Seen Urine Glucose 1+ H Normal mg/dL Lipase 25 12-53 U/L Assessment/Plan Plan Patient is a 58-year-old female who presented with left-sided numbness/tingling and discomfort. This included left leg up to left arm. Does have low back pain also. It is of note that the patient does have history of old CVA with left hemiparesis. She mentioned that the discomfort was worse than her usual problem. Patient is known to our practice from outside. She does have history of CVA and carotid disease. She has had carotid endarterectomy (right side) before. There is no previous history of coronary artery disease. Nuclear stress test of December 2021 had been nonrevealing. She is kept on aspirin/Plavix as outpatient (old CVA). Not in acute distress. No JVD. Mucosa is pink and wet. No carotid bruit. Joy ngs are clear to auscultation. Not using accessory muscles of breathing. Cardiac: Regular, no thrills/gallop. Abdomen is soft. There was no gross mass/hepatomegaly. Bowel sounds positive. Extremities do not reveal edema. Dorsalis pedis is 2+ bilateral. Left-sided hemiparesis can somehow be observed. 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 Uses a walker for ambulation (secondary to old CVA). Echocardiogram of December 16, 2022 (performed in [facility]) revealed ejection fraction of 60%, mild TR and right ventricular systolic pressure of 27 mm Hg. Echocardiogram of October 18, 2023 reported ejection fraction 55-60%, mild MR/TR and right ventricular systolic pressure of 25 mm Nuclear stress test of January 03, 2022 (performed as outpatient) revealed ejection fraction of 80% and no evidence for ischemia/scar. Creatinine: 0.87-0.70 Potassium: 4.3-3.5 Troponin (high sensitive): <3 - <3 - <3 Chest x-ray revealed: IMPRESSION: 1. No acute cardiopulmonary disease. CT of the abdomen and pelvis revealed: IMPRESSION: 1. Mild left hydronephrosis a nd hydroureter without obstructing calculi may reflect a recently passed stone versus pyelonephritis. Evaluation for pyelonephritis is limited without IV contrast. Recommend clinical and biochemical correlation. 2. Mild fecal retention. 3. Scattered colonic diverticula without diverticulitis. CT of the head revealed: IMPRESSION: 1. No acute intracranial process. EKG revealed sinus rhythm, left anterior hemiblock, nonspecific ST changes Tele reveals sinus rhythm Patient is a 58-year-old female who presented with left-sided weakness/tingling. Does have history of old CVA. Pain included leg up to arm. Serial high sensitive troponin has been negative. Acute coronary syndrome is not considered. Is found to have hydronephrosis and hydroureter. Left-sided weakness/pain History of old CVA with left hemiparesis History of Crohn disease/ulcerative colitis Morbid obesity Constipation Hyperlipidemia Status post carotid endarterectomy Hydronephrosis Hydroureter Diverticular disease Cardiac suggestion for management: Manage on telemetry Follow-up electrolytes and kidney function tests and correct abnormalities. Keep potassium above 4 and magnesium above 2 Request for echocardiography Neurology evaluation is suggested Thank you for consultation Further evaluation and management depends on the above and clinical course A total of 75 minutes was spent reviewing the patient record, examining the patient, making a diagnostic and therapeutic plan, discussing this plan with medical personnel, following up on diagnostic studies and following the patient for clinical stability excluding any and all procedures. At least 50% of this time was spent in direct, [id number] contact. Thank you for allowing me to participate in this patient's care. Further recommendations will depend on patient's clinical course. Please do not hesitate to contact me if you have any questions or concerns. This medical document was created using electronic medical record system with [employer] computerized dictation system. Although this document has been carefully reviewed, there may still be some phonetic and typographical errors. These areas are purely typographical due to the imperfection of the software programs, and do not reflect any compromise in the patient's medical care. Plan discussed with: Patient, Other (nurse) BALTAZAR SOMMERS MD May 01, 2024 07:35
[2024-05-01] MEDS: CLOPIDOGREL BISULFATE 75 MG TAB PO SCH (10:20)
[2024-05-01] MEDS: cefTRIAXone 1GM/50ML D5W 50 ML IV SCH (10:42)
--- NOTE | 2024-05-01 14:32 | DVHPN2 ---
Progress Note - Dictate Date Seen: May 01, 2024 Medical Necessity Reason Pt with a Central, PICC or Fol: No vital signs Vital Sign Date Time Temp Pulse Resp B/P (MAP) Pulse Ox O2 Delivery O2 Flow Rate FiO2 05/01/24 13:00 98.0 78 16 92/62 (72) 99 98.0 05/01/24 08:00 Nasal Cannula* 2 28 Total Intake and Output 04/30/24 04/30/24 05/01/24 15:00 23:00 07:00 Intake Total 900 ml Balance 900 ml medications Current Medications Medications Dose Ordered Sig/Damon Route Start Time Stop Time Status Last Admin Dose Admin Acetaminophen/ Hydrocodone Bitart 1 tab Q8HP PRN PO 04/29/24 22:00 04/30/24 01:52 1 TAB Acetaminophen 650 mg Q6HP PRN PO 04/29/24 22:00 Aspirin 81 mg DAILY PO 04/30/24 10:00 05/01/24 10:20 81 MG Mesalamine 400 mg TID PO 04/29/24 22:00 05/01/24 13:37 400 MG Atorvastatin Calcium 40 mg HS PO 04/29/24 22:00 04/30/24 22:39 40 MG Gabapentin 600 mg TID PO 04/29/24 22:00 05/01/24 13:37 600 MG Baclofen 10 mg Q8HP PRN PO 04/29/24 22:00 04/30/24 00:37 10 MG Ceftriaxone Sodium 50 ml @ 100 mls/hr DAILY@09 IV 05/01/24 09:00 05/01/24 10:42 100 MLS/HR Clopidogrel Bisulfate 75 mg DAILY PO 05/01/24 10:00 05/01/24 10:20 75 MG Diagnostic Test (Pha) 1 strip ACHS 04/30/24 11:30 05/01/24 10:56 1 STRIP Insulin Human Regular HS SC 04/30/24 22:00 04/30/24 23:03 3 UNITS Insulin Human Regular AC SC 04/30/24 11:30 05/01/24 11:19 2 UNITS Dextrose 50 ml UD PRN IV 04/30/24 11:00 Morphine Sulfate 4 mg Q4HPRN PRN IV 04/30/24 11:30 05/01/24 10:21 4 MG objective General Appearance: alert, no distress HEENT: EOMI, PERRLA, normal external inspect of ears, no icterus, no nasal drainage Neck: no carotid bruit, no jugular venous distention (JVD), no lymphadenopathy Chest: normal thorax Respiratory: clear to auscultation, normal air movement Cardiovascular: regular rate and rhythm, no diastolic murmur, no jugular venous distention (JVD), no rub, no systolic murmur Abdominal: soft, no hepatomegaly, no mass, no splenomegaly, no tenderness Genitourinary: grossly normal external Musculoskeletal: no joint tenderness, no swelling Extremities: normal pulses, no calf tenderness, no clubbing, no cyanosis, no edema Skin: no bruising, no jaundice, no rash Neurological: alert, No focal deficit laboratory and microbiology Laboratory Tests 04/30/24 03:01 Test 04/30/24 03:01 Range/Units Serum Glucose 114 H 74-106 mg/dL Problem List 1. Acute cystitis w/o hematuria Monitor, send urine culture, continue IV abx 2. Chronic back pain Monitor, PRN pain meds 3. CAD Monitor, restart ASA 4. DM II with neuropathy Monitor, insulin ss, continue Gabapentin 5. Hx CVA with residual weakness Monitor, PT consult, restart Plavix Assessment/Plan Subjective Patient is awake alert. Objective Patient is complaining of no bowel movement since Sunday. Patient was admitted for intractable back pain most likely due to UTI and now possibly related to constipation. Patient will be started on senna and MiraLAX. Plan Continue Rocephin for UTI. Continue senna and MiraLAX for constipation. Continue physical therapy. Plan discussed with: Patient, Other TED HUSSEIN NP May 01, 2024 14:32
[2024-05-01] MEDS ORDERED: SENNA 8.6 MG TAB PO PRN (15:00)
[2024-05-02 01:00] VITALS: BP 108/71; PULSE 82; RESP 18; TEMP 99.2; O2SAT 92
[2024-05-02 05:00] VITALS: BP 103/60; PULSE 83; RESP 19; TEMP 98.9; O2SAT 96
--- NOTE | 2024-05-02 06:03 | DVHPN2 ---
Progress Note - Dictate Date Seen: May 02, 2024 Medical Necessity Reason Pt with a Central, PICC or Fol: No vital signs Vital Sign Date Time Temp Pulse Resp B/P (MAP) Pulse Ox O2 Delivery O2 Flow Rate FiO2 05/02/24 05:46 68 18 104/65 05/02/24 05:00 98.9 96 98.9 05/01/24 23:51 Nasal Cannula* 2 28 Total Intake and Output 05/01/24 05/01/24 05/02/24 15:00 23:00 07:00 Intake Total 50 ml 900 ml 450 ml Balance 50 ml 900 ml 450 ml medications Current Medications Medications Dose Ordered Sig/Damon Route Start Time Stop Time Status Last Admin Dose Admin Acetaminophen/ Hydrocodone Bitart 1 tab Q8HP PRN PO 04/29/24 22:00 04/30/24 01:52 1 TAB Acetaminophen 650 mg Q6HP PRN PO 04/29/24 22:00 Aspirin 81 mg DAILY PO 04/30/24 10:00 05/01/24 10:20 81 MG Mesalamine 400 mg TID PO 04/29/24 22:00 05/02/24 05:43 400 MG Atorvastatin Calcium 40 mg HS PO 04/29/24 22:00 05/01/24 21:47 40 MG Gabapentin 600 mg TID PO 04/29/24 22:00 05/02/24 05:44 600 MG Baclofen 10 mg Q8HP PRN PO 04/29/24 22:00 04/30/24 00:37 10 MG Ceftriaxone Sodium 50 ml @ 100 mls/hr DAILY@09 IV 05/01/24 09:00 05/01/24 10:42 100 MLS/HR Clopidogrel Bisulfate 75 mg DAILY PO 05/01/24 10:00 05/01/24 10:20 75 MG Diagnostic Test (Pha) 1 strip ACHS 04/30/24 11:30 05/01/24 21:50 1 STRIP Insulin Human Regular HS SC 04/30/24 22:00 05/01/24 21:50 3 UNITS Insulin Human Regular AC SC 04/30/24 11:30 05/02/24 05:54 2 UNITS Dextrose 50 ml UD PRN IV 04/30/24 11:00 Morphine Sulfate 4 mg Q4HPRN PRN IV 04/30/24 11:30 05/02/24 05:46 4 MG Polyethylene Glycol 17 gm DAILY PO 05/02/24 10:00 Sennosides 8.6 mg QHSP PRN PO 05/01/24 15:00 laboratory and microbiology Laboratory Tests 04/30/24 03:01 Test 04/30/24 03:01 Range/Units Serum Glucose 114 H 74-106 mg/dL Assessment/Plan Patient is a 58-year-old female who presented with left-sided numbness/tingling and discomfort. This included left leg up to left arm. Does have low back pain also. It is of note that the patient does have history of old CVA with left hemiparesis. She mentioned that the discomfort was worse than her usual problem. Patient is known to our practice from outside. She does have history of CVA and carotid disease. She has had carotid endarterectomy (right side) before. There is no previous history of coronary artery disease. Nuclear stress test of December 2021 had been nonrevealing. She is kept on aspirin/Plavix as outpatient (old CVA). Not in acute distress. No JVD. Mucosa is pink and wet. No carotid bruit. Lungs are clear to auscultation. Not using accessory muscles of breathing. Cardiac: Regular, no thrills/gallop. Abdomen is soft. There was no gross mass/hepatomegaly. Bowel sounds positive. Extremities do not reveal edema. Dorsalis pedis is 2+ bilateral. Left-sided hemiparesis can somehow be observed. 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 Uses a walker for ambulation (secondary to old CVA). Echocardiogram of December 16, 2022 (performed in [facility]) revealed ejection fraction of 60%, mild TR and right ventricular systolic pressure of 27 mm Hg. Echocardiogram of October 18, 2023 reported ejection fraction 55-60%, mild MR/TR and right ventricular systolic pressure of 25 mm Nuclear stress test of January 03, 2022 (performed as outpatient) revealed ejection fraction of 80% and no evidence for ischemia/scar. Creatinine: 0.87-0.70 Potassium: 4.3-3.5 Troponin (high sensitive): <3 - <3 - <3 Chest x-ray revealed: IMPRESSION: 1. No acute cardiopulmonary disease. CT of the abdomen and pelvis revealed: IMPRESSION: 1. Mild left hydronephrosis and hydroureter without obstructing calculi may reflect a recently passed stone versus pyelonephritis. Evaluation for pyelonephritis is limited without IV contrast. Recommend clinical and biochemical correlation. 2. Mild fecal retention. 3. Scattered colonic diverticula without diverticulitis. CT of the head revealed: IMPRESSION: 1. No acute intracranial process. EKG revealed sinus rhythm, left anterior hemiblock, nonspecific ST changes Tele reveals sinus rhythm Patient is a 58-year-old female who presented with left-sided weakness/tingling. Does have history of old CVA. Pain included leg up to arm. Serial high sensitive troponin has been negative. Acute coronary syndrome is not considered. Is found to have hydronephrosis and hydroureter. Left-sided weakness/pain History of old CVA with left hemiparesis History of Crohn disease/ulcerative colitis Morbid obesity Constipation Hyperlipidemia Status post carotid endarterectomy Hydronephrosis Hydroureter Diverticular disease Cardiac suggestion for management: Manage on telemetry Follow-up electrolytes and kidney function tests and correct abnormalities. Keep potassium above 4 and magnesium above 2 Request for echocardiography Neurology evaluation is suggested Further evaluation and management depends on the above and clinical course A total of 75 minutes was spent reviewing the patient record, examining the patient, making a diagnostic and therapeutic plan, discussing this plan with medical personnel, following up on diagnostic studies and following the patient for clinical stability excluding any and all procedures. At least 50% of this time was spent in direct, [id number] contact. Thank you for allowing me to participate in this patient's care. Further recommendations will depend on patient's clinical course. Please do not hesitate to contact me if you have any questions or concerns. This medical document was created using electronic medical record system with [employer] dictation system. Although this document has been carefully reviewed, there may still be some phonetic and typographical errors. These areas are purely typographical due to the imperfection of the software programs, and do not reflect any compromise in the patient's medical care. Plan discussed with: Patient, Other (nurse) BALTAZAR SOMMERS MD May 02, 2024 06:03
[2024-05-02 08:51] VITALS: BP 112/80; PULSE 76; RESP 18; TEMP 98.5; O2SAT 94
[2024-05-02] MEDS: POLYETHYLENE GLYCOL 17 GM PWDR PO SCH (09:11)
[2024-05-02 12:51] VITALS: BP 90/58; PULSE 74; RESP 18; TEMP 98; O2SAT 97
--- NOTE | 2024-05-02 15:02 | DVHPN2 ---
Progress Note - Dictate Date Seen: May 02, 2024 Medical Necessity Reason Pt with a Central, PICC or Fol: No vital signs Vital Sign Date Time Temp Pulse Resp B/P (MAP) Pulse Ox O2 Delivery O2 Flow Rate FiO2 05/02/24 12:51 98.0 74 18 90/58 (69) 97 98.0 05/02/24 08:00 Nasal Cannula* 2 28 Total Intake and Output 05/01/24 05/01/24 05/02/24 15:00 23:00 07:00 Intake Total 50 ml 900 ml 450 ml Balance 50 ml 900 ml 450 ml medications Current Medications Medications Dose Ordered Sig/Damon Route Start Time Stop Time Status Last Admin Dose Admin Acetaminophen/ Hydrocodone Bitart 1 tab Q8HP PRN PO 04/29/24 22:00 04/30/24 01:52 1 TAB Acetaminophen 650 mg Q6HP PRN PO 04/29/24 22:00 Aspirin 81 mg DAILY PO 04/30/24 10:00 05/02/24 09:11 81 MG Mesalamine 400 mg TID PO 04/29/24 22:00 05/02/24 14:17 400 MG Atorvastatin Calcium 40 mg HS PO 04/29/24 22:00 05/01/24 21:47 40 MG Gabapentin 600 mg TID PO 04/29/24 22:00 05/02/24 14:18 600 MG Baclofen 10 mg Q8HP PRN PO 04/29/24 22:00 04/30/24 00:37 10 MG Ceftriaxone Sodium 50 ml @ 100 mls/hr DAILY@09 IV 05/01/24 09:00 05/02/24 09:11 100 MLS/HR Clopidogrel Bisulfate 75 mg DAILY PO 05/01/24 10:00 05/02/24 09:11 75 MG Diagnostic Test (Pha) 1 strip ACHS 04/30/24 11:30 05/02/24 11:30 1 STRIP Insulin Human Regular HS SC 04/30/24 22:00 05/01/24 21:50 3 UNITS Insulin Human Regular AC SC 04/30/24 11:30 05/02/24 11:40 3 UNITS Dextrose 50 ml UD PRN IV 04/30/24 11:00 Morphine Sulfate 4 mg Q4HPRN PRN IV 04/30/24 11:30 05/02/24 10:32 4 MG Polyethylene Glycol 17 gm DAILY PO 05/02/24 10:00 05/02/24 09:11 17 GM Sennosides 8.6 mg QHSP PRN PO 05/01/24 15:00 objective General Appearance: alert, no distress HEENT: EOMI, PERRLA, normal external inspect of ears, no icterus, no nasal drainage Neck: no carotid bruit, no jugular venous distention (JVD), no lymphadenopathy Chest: normal thorax Respiratory: clear to auscultation, normal air movement Cardiovascular: regular rate and rhythm, no diastolic murmur, no jugular venous distention (JVD), no rub, no systolic murmur Abdominal: soft, no hepatomegaly, no mass, no splenomegaly, no tenderness Genitourinary: grossly normal external Musculoskeletal: no joint tenderness, no swelling Extremities: normal pulses, no calf tenderness, no clubbing, no cyanosis, no edema Skin: no bruising, no jaundice, no rash Neurological: alert, No focal deficit laboratory and microbiology Laboratory Tests 04/30/24 03:01 Test 04/30/24 03:01 Range/Units Serum Glucose 114 H 74-106 mg/dL Problem List 1. Acute cystitis w/o hematuria Monitor, send urine culture, continue IV abx 2. Chronic back pain Monitor, PRN pain meds 3. CAD Monitor, restart ASA 4. DM II with neuropathy Monitor, insulin ss, continue Gabapentin 5. Hx CVA with residual weakness Monitor, PT consult, restart Plavix Assessment/Plan Subjective Patient is awake alert. Objective Patient is admitted for intractable back pain most likely related to UTI. Patient states she is getting better today. Patient has been moving around in and out of bed. Patient seen by cardiology, cardiac harrison patient is stable. Plan Continue current treatment. Patient will discharge home tomorrow with muscle relaxants as needed. She will follow-up with pain management and PT for outpatient therapy. Plan discussed with: Patient, Other TED HUSSEIN NP May 02, 2024 15:02
[2024-05-02 16:51] VITALS: BP 107/71; PULSE 77; RESP 18; TEMP 98.1; O2SAT 94
[2024-05-02 22:20] VITALS: BP 102/53; PULSE 78; RESP 18; TEMP 98.7; O2SAT 93
[2024-05-03] VITALS (8 sets, daily range): BP systolic 83–123; BP diastolic 44–82; PULSE 70–88; RESP 16–18; TEMP 36.6; O2SAT 94–100
--- NOTE | 2024-05-03 06:23 | DVHPN2 ---
Progress Note - Dictate Date Seen: May 03, 2024 Medical Necessity Reason Pt with a Central, PICC or Fol: No Subjective Patient seen and examined at the bedside within telemetry. Chart reviewed. vital signs Vital Sign Date Time Temp Pulse Resp B/P (MAP) Pulse Ox O2 Delivery O2 Flow Rate FiO2 05/03/24 06:04 70 18 103/44 05/03/24 05:16 98.2 94 98.2 05/02/24 20:00 Nasal Cannula* 2 28 Total Intake and Output 05/02/24 05/02/24 05/03/24 15:00 23:00 07:00 Intake Total 644 ml 1044 ml 100 ml Output Total 1075 ml Balance 644 ml -31 ml 100 ml medications Current Medications Medications Dose Ordered Sig/Damon Route Start Time Stop Time Status Last Admin Dose Admin Acetaminophen/ Hydrocodone Bitart 1 tab Q8HP PRN PO 04/29/24 22:00 04/30/24 01:52 1 TAB Acetaminophen 650 mg Q6HP PRN PO 04/29/24 22:00 Aspirin 81 mg DAILY PO 04/30/24 10:00 05/02/24 09:11 81 MG Mesalamine 400 mg TID PO 04/29/24 22:00 05/03/24 06:04 400 MG Atorvastatin Calcium 40 mg HS PO 04/29/24 22:00 05/02/24 22:01 40 MG Gabapentin 600 mg TID PO 04/29/24 22:00 05/03/24 06:05 600 MG Baclofen 10 mg Q8HP PRN PO 04/29/24 22:00 04/30/24 00:37 10 MG Ceftriaxone Sodium 50 ml @ 100 mls/hr DAILY@09 IV 05/01/24 09:00 05/02/24 09:11 100 MLS/HR Clopidogrel Bisulfate 75 mg DAILY PO 05/01/24 10:00 05/02/24 09:11 75 MG Diagnostic Test (Pha) 1 strip ACHS 04/30/24 11:30 05/02/24 22:02 1 STRIP Insulin Human Regular HS SC 04/30/24 22:00 05/02/24 22:00 3 UNITS Insulin Human Regular AC SC 04/30/24 11:30 05/02/24 17:35 2 UNITS Dextrose 50 ml UD PRN IV 04/30/24 11:00 Morphine Sulfate 4 mg Q4HPRN PRN IV 04/30/24 11:30 05/03/24 06:04 4 MG Polyethylene Glycol 17 gm DAILY PO 05/02/24 10:00 05/02/24 09:11 17 GM Sennosides 8.6 mg QHSP PRN PO 05/01/24 15:00 laboratory and microbiology Laboratory Tests 04/30/24 03:01 Test 04/30/24 03:01 Range/Units Serum Glucose 114 H 74-106 mg/dL Assessment/Plan Assessment/Plan Patient is a 58-year-old female who presented with left-sided numbness/tingling and discomfort. This included left leg up to left arm. Does have low back pain also. It is of note that the patient does have history of old CVA with left hemiparesis. She mentioned that the discomfort was worse than her usual problem. Patient is known to our practice from outside. She does have history of CVA and carotid disease. She has had carotid endarterectomy (right side) before. There is no previous history of coronary artery disease. Nuclear stress test of December 2021 had been nonrevealing. She is kept on aspirin/Plavix as outpatient (old CVA). Not in acute distress. No JVD. Mucosa is pink and wet. No carotid bruit. Lungs are clear to auscultation. Not using accessory muscles of breathing. Cardiac: Regular, no thrills/gallop. Abdomen is soft. There was no gross mass/hepatomegaly. Bowel sounds positive. Extremities do not reveal edema. Dorsalis pedis is 2+ bilateral. Left-sided hemiparesis can somehow be observed. 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 Uses a walker for ambulation (secondary to old CVA). Echocardiogram of December 16, 2022 (performed in [facility]) revealed ejection fraction of 60%, mild TR and right ventricular systolic pressure of 27 mm Hg. Echocardiogram of October 18, 2023 reported ejection fraction 55-60%, mild MR/TR and right ventricular systolic pressure of 25 mm Nuclear stress test of January 03, 2022 (performed as outpatient) revealed ejection fraction of 80% and no evidence for ischemia/scar. Creatinine: 0.87-0.70 Potassium: 4.3-3.5 Troponin (high sensitive): <3 - <3 - <3 Chest x-ray revealed: IMPRESSION: 1. No acute cardiopulmonary disease. CT of the abdomen and pelvis revealed: IMPRESSION: 1. Mild left hydronephrosis and hydroureter without obstructing calculi may reflect a recently passed stone versus pyelonephritis. Evaluation for pyelonephritis is limited without IV contrast. Recommend clinical and biochemical correlation. 2. Mild fecal retention. 3. Scattered colonic diverticula without diverticulitis. CT of the head revealed: IMPRESSION: 1. No acute intracranial process. EKG revealed sinus rhythm, left anterior hemiblock, nonspecific ST changes Tele reveals sinus rhythm Patient is a 58-year-old female who presented with left-sided weakness/tingling. Does have history of old CVA. Pain included leg up to arm. Serial high sensitive troponin has been negative. Acute coronary syndrome is not considered. Is found to have hydronephrosis and hydroureter. Left-sided weakness/pain History of old CVA with left hemiparesis History of Crohn disease/ulcerative colitis Morbid obesity Constipation Hyperlipidemia Status post carotid endarterectomy Hydronephrosis Hydroureter Diverticular disease Cardiac suggestion for management: Manage on telemetry Follow-up electrolytes and kidney function tests and correct abnormalities. Keep potassium above 4 and magnesium above 2 Request for echocardiography Neurology evaluation is suggested Further evaluation and management depends on the above and clinical course A total of 75 minutes was spent reviewing the patient record, examining the patient, making a diagnostic and therapeutic plan, discussing this plan with medical personnel, following up on diagnostic studies and following the patient for clinical stability excluding any and all procedures. At least 50% of this time was spent in direct, [id number] contact. Thank you for allowing me to participate in this patient's care. Further recommendations will depend on patient's clinical course. Please do not hesitate to contact me if you have any questions or concerns. This medical document was created using electronic medical record system with [employer] dictation system. Although this document has been carefully reviewed, there may still be some phonetic and typographical errors. These areas are purely typographical due to the imperfection of the software programs, and do not reflect any compromise in the patient's medical care. Plan discussed with: Patient, Other (nurse) Plan discussed with: Patient (Patient and Primary RN ) UYEN MÁRQUEZ [employer] May 03, 2024 06:23
[2024-05-03] MEDS ORDERED: FLUC150T38 PO (12:29)
[2024-05-03] MEDS ORDERED: BACL10TA PO (12:29)
[2024-05-03] MEDS ORDERED: CEPH500C PO (12:29)
--- NOTE | 2024-05-03 12:30 | DVHDS2 ---
Discharge Summary Date of Admission Apr 29, 2024 at 21:53 Date of Discharge: May 03, 2024 Labs/Diagnostic Data: Laboratory Results Test 05/03/24 10:53 04/30/24 03:01 04/29/24 20:30 04/29/24 17:45 POC Glucose 197 mg/dl (70-106) White Blood Count 8.5 10^3/uL (4.4-10.8) Red Blood Count 4.56 10^6/uL (4.0-5.20) Hemoglobin 13.6 g/dL (12.2-16.2) Hematocrit 40.6 % (36.0-46.0) Mean Corpuscular Volume 89.1 fL (80.0-100.0) Mean Corpuscular Hemoglobin 29.9 pg (28.0-32.0) Mean Corpuscular Hemoglobin Concent 33.6 g/dL (32.0-36.0) Red Cell Distribution Width 14.7 % (11.8-14.3) Platelet Count 190 10^3/uL (140-450) Mean Platelet Volume 8.3 fL (6.9-10.8) Neutrophils (%) (Auto) 64.5 % (37.0-80.0) Lymphocytes (%) (Auto) 27.4 % (10.0-50.0) Monocytes (%) (Auto) 4.3 % (0.0-12.0) Eosinophils (%) (Auto) 3.1 % (0.0-7.0) Basophils (%) (Auto) 0.7 % (0.0-2.0) Neutrophils # (Auto) 5.5 10 ^3/uL (1.6-8.6) Lymphocytes # (Auto) 2.3 10 ^3/uL (0.4-5.4) Monocytes # (Auto) 0.4 10 ^3/uL (0-1.3) Eosinophils # (Auto) 0.3 10 ^3/uL (0-0.8) Basophils # (Auto) 0.1 10 ^3/uL (0-0.2) Nucleated Red Blood Cells 0.1 % Sodium Level 145 mmol/L (136-145) Potassium Level 3.5 mmol/L (3.5-5.1) Chloride Level 113 mmol/L (98-107) Carbon Dioxide Level 23 mmol/L (20-31) Anion Gap 9 (5-15) Blood Urea Nitrogen 12 mg/dL (9-23) Creatinine 0.70 mg/dL (0.550-1.02) Glomerular Filtration Rate Calc 99 mL/min (>90) BUN/Creatinine Ratio 17.1 (10.0-20.0) Serum Glucose 114 mg/dL (74-106) Hemoglobin A1c 8.0 % A1C (<5.7) Calcium Level 8.1 mg/dL (8.7-10.4) Total Bilirubin 0.3 mg/dL (0.2-1.0) Aspartate Amino Transferase (AST) 13 U/L (13-40) Alanine Aminotransferase (ALT) < 9 U/L (7-40) Alkaline Phosphatase 92 U/L (46-116) Troponin I High Sensitivity < 3 ng/L (</=34) Total Protein 5.2 g/dL (5.7-8.2) Albumin 3.6 g/dL (3.2-4.8) Urine Color Light-yellow (Yellow) Urine Clarity Clear (Clear) Urine pH 5.0 (5.0-9.0) Urine Specific [place] 1.012 (1.001-1.035) Urine Protein Negative (Negative) Urine Ketones Negative (Negative) Urine Blood Negative /uL (Negative) Urine Nitrite Negative (Negative) Urine Bilirubin Negative (Negative) Urine Urobilinogen Normal mg/dL (Negative) Urine Leukocyte Esterase 1+ /uL (Negative) Urine RBC 3 /hpf (0 - 4) Urine Microscopic WBC 21 /HPF (0-5) Urine Squamous Epithelial Cells Few /hpf (<5) Urine Amorphous Crystals Few /hpf (None Seen) Urine Bacteria Few /hpf (None Seen) Urine Mucus Few (None Seen) Urine Glucose 1+ mg/dL (Normal) Lipase 25 U/L (12-53) Other Laboratory Tests 04/30/24 03:01 Brief Hx & Hospital Course: A 58-year-old female with past medical history of CVA, diabetes mellitus type 2, Crohn disease, hypertension, coronary artery disease and degenerative disc disease at lumbar area, came to the hospital due to lower back pain. Per patient, she has chronic back pain due to a fall during childhood and since 2 years been using Galva 10 mg 4 times a days. Lower back pain has worsened since 1 day, localized and the central back and left side. She also reports left- sided numbness with mild pain and weakness, generalized weakness, mild chest discomfort and diarrhea. The patient use walker. Patient denies fever, cough, shortness of breath, any trauma or fall history, and any recent changes in bowel and bladder habits. Patient was admitted on April 29, 2024 for abdominal pain, most likely related to UTI. Urine culture shows some contaminant with yeast. Patient was given a prescription for IV antibiotics and a one-time dose of Diflucan. Patient also has chronic back pain. Patient was given a five-day supply of Baclofen. Patient states the muscle relaxant has been working for her while inpatient. financial services intern consulted for DME equipment. Patient states her wheelchair is broken. Patient will follow up with her PCP, Dr. Casas, in one week. The patient received proper medical treatment and medications. Vital signs, Imaging and Laboratory Work was monitored. All consults recommendations were followed as provided. There were no complaints or new complaints upon discharge, all questions and concerns were answered. Patient was advised to return to the ER or call 911 if any headaches, dizziness, shortness of breath, chest pain, bleeding, fevers, or worsening of medical condition. Patient/Family was counseled about treatment plan, medications, possible side effects, patientverbalized understanding. All questions were answered to the best of my ability. The patient symptoms improved and they are okay to be DC. Condition at Discharge: Good Final Diagnosis/Problems List Acute cystitis w/o hematuria Chronic back pain CAD DM II with neuropathy Hx CVA with residual weakness Discharge Disposition: Home Discharge Instruct/Medications Diet: Cardiac 2g Na,low cholest Activity: No Restrictions, As Tolerated Follow Up/Referral: pcp 1 week Discharge Statement: "Patient was advised to return to the ER or call 911 if any headaches, dizziness, shortness of breath, chest pain, abdominal pain, bleeding, fevers, or worsening of medical condition. Patient was counseled about treatment plan, medications, possible side effects, patientverbalized understanding. All questions were answered to the best of my ability. This discharge took greater then 30 minutes in planning, reviewing documentation, counseling the patient, and discussing with other team members." ASSESSMENT ASSESSMENT Assessment Back pain related to UTI TED HUSSEIN NP May 03, 2024 12:30
[2024-05-03] MEDS ORDERED: POLY335015 PO (12:54)
--- NOTE | 2024-05-05 09:13 | DVHSR ---
APPROVED REPORT EXAM: Two-dimensional and M-mode echocardiogram with Doppler and color Doppler. Blood Pressure: 104/65 mmHg INDICATION Chest Pain RISK FACTORS Height: 5'4", Weight: 187 DIMENSIONS LVDd4.4 (3.8-5.7cm)LA (2D)3.7 (1.9-4.0cm)Aortic Root2.9 (2.0-3.7cm) LVDs3.3 (2.5-4.0cm)LA (MM) (1.9-4.0cm)Aortic Cusp Exc1.7 (1.5-2.0cm) EF (%) 50.0 (55-70%)Rt. Atrium3.7 (1.9-4.0cm)Asc. Aorta2.7 cm IVSd0.5 (0.7-1.1cm)RV (D)2.8 (1.8-2.4cm) Mitral Valve MitralMitral Stenosis E wave0.84m/sMV Mean GR.mmHg A wave0.97m/sMV Peak GR.mmHg E/A ratio0.92D MVAcm2 DECEL [id number] 1/2 Timems Aortic Valve Aortic ValveAortic Stenosis V11.42m/Yared Mean GR.5mmHg V21.55m/Yared Peak GR.10mmHg LVOT Diameter2.0 (1.8-2.4cm)Doppler AVA2.88cm2 Pulmonic Valve V20.94m/s Tricuspid Valve TR Velocity2.24m/s [id number] Other Information Quality : Technically LimitedRhythm : Technically limited study due to body habitus. Conclusion Left ventricle: Left ventricle was normal size. LVEF was 50-55%. There was no gross wall motion ab normality. Diastolic function was considered normal for age. Right ventricle was normal size with normal systolic function. Both atria were normal size. Aortic valve: Aortic valve was trileaflet. There was no aortic insufficiency/stenosis. There was tr anant mitral/tricuspid regurgitation. Pulmonary valve was not well visualized. Right ventricular systolic pressures assess the 28 mm Hg. There was trace pericardial effusion.
== END 2024-05-03 13:42 | disposition home or self-care (01) | DRG 690 ==
LOC: EDBD 17:14 → ER 17:17 → OVERFLOW 21:53 → CENTRAL 04-30 21:28
PROVIDERS: ADMIT Internal Medicine; ATTEND Internal Medicine
DX: N13.6 Pyonephrosis (principal); I24.9 Acute ischemic heart disease, unspecified; I69.354 Hemiplegia and hemiparesis following cerebral infarction affecting left non-dominant side; K50.90 Crohn's disease, unspecified, without complications; E11.40 Type 2 diabetes mellitus with diabetic neuropathy, unspecified; G89.29 Other chronic pain; I25.10 Atherosclerotic heart disease of native coronary artery without angina pectoris; K57.30 Diverticulosis of large intestine without perforation or abscess without bleeding; E66.01 Morbid (severe) obesity due to excess calories; E78.5 Hyperlipidemia, unspecified; I11.0 Hypertensive heart disease with heart failure; I50.9 Heart failure, unspecified; K59.00 Constipation, unspecified; Z68.33 Body mass index [BMI] 33.0-33.9, adult; Z88.8 Allergy status to other drugs, medicaments and biological substances; I69.320 Aphasia following cerebral infarction; Z91.040 Latex allergy status; Z90.49 Acquired absence of other specified parts of digestive tract; Z79.82 Long term (current) use of aspirin; Z79.02 Long term (current) use of antithrombotics/antiplatelets; Z79.84 Long term (current) use of oral hypoglycemic drugs; Z85.41 Personal history of malignant neoplasm of cervix uteri; Z82.49 Family history of ischemic heart disease and other diseases of the circulatory system; Z82.0 Family history of epilepsy and other diseases of the nervous system; Z83.3 Family history of diabetes mellitus; Z80.0 Family history of malignant neoplasm of digestive organs
CPT/HCPCS: 36415; 70450; 71045; 74176; 80053; 81001; 82962; 83036; 83690; 84484; 85025; 87086; 87088; 87186; 93005; 93306; 97110; 97116; 97163; G0378; J1815; J1885

== ENCOUNTER 2024-06-02 14:46 | Emergency (ER) | payer MEDICARE, MEDICAID ==
[~2024-06-02] VITALS: Ht 157.5 cm; Wt 82.2 kg
[~2024-06-02 14:46] MED LIST changes: -ACET500T58 PO; +CEPH500C PO; +FLUC150T38 PO; -HYDR1TAB97 PO; -LIDO2SOL26 MT; -MECL1TAB42 PO; -MESA400C PO; +PARO1TAB33; -PENI500T2 PO; +POLY335015 PO
[2024-06-02 15:53] VITALS: TEMP 99.4; O2SAT 98
--- NOTE | 2024-06-02 16:30 | DVH ---
INDICATION: BP s/p fall in shower TECHNIQUE: 4 views of the lumbar spine were obtained. COMPARISON: None FINDINGS: There are no acute fractures or subluxations. IMPRESSION: 1. No acute fracture or subluxation.
--- NOTE | 2024-06-02 16:42 | DVH ---
EXAM: CT HEAD WITHOUT CONTRAST INDICATION: fall in shower, trauma, pain TECHNIQUE: CT of the head without intravenous contrast. Radiation Dose : 1. Head: CT Dose: CTDI volume is 53.8 mGy. Dose-length product is 971.86 mGy*cm The dose indicators for CT are the volume Computed Tomography (CT) Dose Index (CTDIvol) and the Dose Length Product (DLP), and are measured in units of mGy and mGy-cm, respectively. These indicators are not patient dose, but values generated from the CT scanner acquisition factors. The report includes radiation exposure data for exposures received during this examination. COMPARISON: CT HEAD WITHOUT CONTRAST on DOS: 04/29/24, CT HEAD WITHOUT CONTRAST on DOS: 11/01/23, CT HE AD WITHOUT CONTRAST on DOS: 10/17/23, CT HEAD WITHOUT CONTRAST on DOS: 11/03/22 FINDINGS: There is no evidence of acute intracranial hemorrhage, extra-axial collection, mass effect, midline s hift, herniation or hydrocephalus. The ventricles, sulci and cisterns are age appropriate. The rankin-white differentiation is intact. Patchy periventricular and subcortical white matter hypoattenuation is nonspecific but may be related to small vessel ischemic disease. The visualized paranasal sinuses and mastoid air cells are clear. The surrounding soft tissues and osseous structures are unremarkable. IMPRESSION: No acute intracranial abnormality. Radiation optimization: All CT scans at this facility use at least one of these dose optimization shaila hniques: automated exposure control mA and/or kV adjustment per patient size (includes targeted exam s where dose is matched to clinical indication) or iterative reconstruction.
[2024-06-02] MEDS ORDERED: LIDO5DIS21 TOP (17:27)
--- NOTE | 2024-06-02 17:27 | ED.PDOC ---
Back pain HPI HPI Comments 58-year-old with a history of chronic back pain presents with a chief complaint of bilateral lower back pain x3 days after she slipped and fell in the shower. Also complains of a mild generalized headache that is rated in between a three 4/10. Denies fever, chills, night sweats Denies persistent nausea Denies vomiting Denies thunderclap headache Denies photophobia, phonophobia Denies head trauma around the time headache started Denies family history of brain issues persistent headaches Denies taking any blood thinner medication Denies vision/hearing changes Denies focal loss of strength/sensation or changes in speech Chief Complaint: Back Pain Time Seen by MD: 15:40 Primary Care Provider: Augusto Reviewed Notes: Nurses Notes, Medications, Allergies Allergies: Coded Allergies: Latex (Verified Allergy, Mild, 06/02/24) INCLUDING TAPE, BROWN AND CLEAR TAPE Procaine (Verified Allergy, Unknown, 03/12/14) Home Meds Active Scripts Lidocaine (LIDODERM 5% TOPICAL PATCH) 1 Patch Ph, 1 PATCH TOP DAILY for 30 Days, #30 PATCH 0 Refills Prov:MIAN ROMO HAND DRAWER [employer] 06/02/24 Polyethylene Glycol 3350 (Miralax) 17 Gm Pow, 17 GM PO DAILY for 15 Days, #15 POW Prov:DONNAADAN ANNRAGHU Alvarez HAND DRAWER [employer] 05/03/24 Cephalexin Monohydrate (Cephalexin) 500 Mg Cap, 500 MG PO QID for 5 Days, #20 CAP Prov:TED HUSSEIN Kim HAND DRAWER [employer] 05/03/24 Fluconazole (Diflucan) 150 Mg Tab, 1 TAB PO ONCE, #1 TAB 1 Refill Prov:DONNAADAN ANNRAGHU Alvarez HAND DRAWER IN [employer] 05/03/24 Baclofen (Baclofen) 10 Mg Tab, 10 MG PO Q8HP PRN for 5 Days, #15 TAB Prov:TDE HUSSEIN Kim HAND DRAWER IN [employer] 05/03/24 Albuterol Sulfate (Albuterol Sulfate Hfa) 108 Mcg/Act Aer, 108 MCG IN BID PRN for 10 Days, #1 AER 0 Refills Prov:LILI LUNSFORD DO 12/01/22 Reported Medications Paroxetine Hydrochloride (Paroxetine Hydrochloride) 20 Mg Tab, 1 DAILY 05/01/24 Potassium Chloride (POTASSIUM CHLORIDE CR) 10 Meq Tb, 10 MEQ PO, TAB 11/28/23 Cholestyramine (Cholestyramine) 4 Gm/Dose Pow, PO 10/18/23 Tirzepatide (Mounjaro) 7.5 Mg/0.5 Ml Inj, SC 10/18/23 Sitagliptin Phosphate (Januvia) 100 Mg Tab, 1 TAB PO DAILY 10/18/23 Clopidogrel Bisulfate (CLOPIDOGREL) 75 Mg Tab, 1 TAB PO DAILY 10/18/23 Furosemide (Furosemide) 40 Mg Tab, 1 TAB PO BID 10/18/23 Atorvastatin Calcium (ATORVASTATIN CALCIUM) 20 Mg Tab, 1 TAB PO DAILY 10/17/23 Cholecalciferol (Vitamin D-3 Super Strengt) 2,000 Unit Tab, 1 TAB PO DAILY 10/17/23 Gabapentin (Gabapentin) 300 Mg Cap, 1 CAP PO Q8H 10/17/23 Aspirin (Aspirin Low Dose) 81 Mg Tab, 1 TAB PO DAILY 10/17/23 Balsalazide Disodium (Balsalazide Disodium) 750 Mg Cap, PO 10/17/23 Information Source: Patient Mode of Arrival: Ambulatory Past Medical History PAST MEDICAL HISTORY: Angina, CAD, CVA, DM, High Lipids, Kidney Stones Surgical History: Cholecystectomy, Hernia Repair COPY HOLDER History: No Pertinent COPY HOLDER History Family History Family History: Reviewed,noncontributory to illness Social History Smoker: Non-Smoker Alcohol: Denies ETOH Use Drugs: Denies Drug Use Lives In: Home All Other Systems: Reviewed and Negative (per hpi) Physical Exam General Appearance: No Apparent Distress, Normal HEENT: Normal ENT Inspection, Pharynx Normal, TMs Normal Neck: Full Range of Motion, Non-Tender, Normal, Normal Inspection Respiratory: Chest Non-Tender, Lungs Clear, No Accessory Muscle Use, No Respiratory Distress, Normal Breath Sounds Cardiovascular: No Edema, No JVD, No Murmur, No Gallop, Normal Peripheral Pulses, Regular Rate/Rhythm Breast Exam: Deferred Gastrointestinal: No Organomegaly, Non Tender, No Pulsatile Mass, Normal Bowel Sounds, Soft Genitalia: Deferred Pelvic: Deferred Rectal: Deferred Extremities: No calf tenderness, Normal capillary refill, Normal inspection, Normal range of motion, Non-tender, No pedal edema Musculoskeletal : Apperance: Normal Neurologic: Alert, No Motor Deficits, Normal Affect, Normal Mood, No Sensory Deficits Cerebellar Function: Normal Reflexes: Normal Skin: Dry, Normal Color, Warm Lymphatic: No Adenopathy Was a procedure done? Was a procedure done?: No Back Pain Differential Dx Differential Diagnosis: Strain, Other X-Ray, Labs, Meds, VS Vital Signs Date Time Temp Pulse Resp B/P (MAP) Pulse Ox O2 Delivery O2 Flow Rate FiO2 06/02/24 17:31 65 18 99/65 06/02/24 15:53 80 16 98 Room Air 06/02/24 15:53 99.4 80 16 106/60 (75) 98 99.4 06/02/24 15:04 99.5 79 16 103/58 (73) 96 Current Medications Medications (Trade) Dose Ordered Sig/Damon Route Start Time Stop Time Status Last Admin Morphine Sulfate 2 mg ONCE ONCE IM 06/02/24 17:15 06/02/24 17:16 DC 06/02/24 17:31 X-Ray, Labs, Meds, VS Comment I considered cauda equina, spinal cord compression, vertebral malignancy/mets, acute spinal fracture, vertebral osteomyelitis, epidural abscess, infected or obstructed kidney stone, however this is less likely as the patient does not present with lower back pain red flags symptoms such as bowel or bladder dysfunction, saddle anesthesia, paresthesia, and without any history of ma lignancy or recent back trauma or spinal interventions. Therefore further imaging studies such as a lumbar MRI were not indicated on today's visit. Presentation most consistent with nonemergent musculoskeletal etiology versus nonemergent disc herniation. ED workup: Defer imaging and lab work for outpatient follow up at this time Disposition: Discharge. Strict return precautions discussed with the patient with full understanding. Supportive care advised (rest, ice, heat, NSAIDs, stretching exercises) Massage muscles with cold pack or ice for 20 minutes 4 times per day. Usually most useful if there is swelling during the first 48 hours Heating pad on the most painful area for 20 minutes to relieve muscle spasm Sleep and the most comfortable sleeping position (usually on the side with knees bent) Light stretching, no strenuous activity, avoid frequent bending, avoid carrying heavy objects Discussed possible benefits of yoga and acupuncture Return precautions discussed including Inability to walk/bear weight Paresthesia/weakness/leg pain Fecal/urinary incontinence Any worsening symptoms Time of 1ST Reevaluation: 17:00 Reevaluation 1ST: Improved Patient Education/Counseling: Diagnosis, Treatment Family Education/Counseling: Diagnosis, Treatment Departure 1 Departure Time of Disposition: 17:26 Impression: Primary Impression: Back pain Qualified Codes: M54.50 - Low back pain, unspecified Additional Impression: Fall Qualified Codes: W19.XXXA - Unspecified fall, initial encounter Disposition: HOME / SELF CARE / HOMELESS Condition: Stable e-Prescriptions Lidocaine (LIDODERM 5% TOPICAL PATCH) 1 Patch Ph 1 PATCH TOP DAILY for 30 Days, #30 PATCH 0 Refills Prov: MIAN ROMO NP 06/02/24 Discharged With: Relative Critical Care Note Critical Care Time?: No Stability Stability form required: No Heart Score Heart Score: Heart Score Response (Comments) Value History N/A 0 EKG N/A 0 Age N/A 0 Risk Factors N/A 0 Troponin N/A 0 Total 0 MIAN ROMO HAND DRAWER IN HELPER Jun 02, 2024 17:27
[2024-06-02 17:31] VITALS: BP 99/65; PULSE 65; RESP 18
[2024-06-02] MEDS: MORPHINE SULFATE 4 MG/ML SYR/VIAL IM ONE (17:31)
== END 2024-06-02 17:56 | disposition home or self-care (01) ==
LOC: ER 14:46
DX: M54.59 Other low back pain (principal); E11.9 Type 2 diabetes mellitus without complications; E78.5 Hyperlipidemia, unspecified; Z88.6 Allergy status to analgesic agent; Z88.8 Allergy status to other drugs, medicaments and biological substances; Z79.899 Other long term (current) drug therapy; Z79.84 Long term (current) use of oral hypoglycemic drugs; Z90.49 Acquired absence of other specified parts of digestive tract; Z90.89 Acquired absence of other organs; Z87.442 Personal history of urinary calculi
CPT/HCPCS: 70450; 72100; 96372; 99285; J2270; J7030

== ENCOUNTER 2024-07-01 15:48 | Inpatient (IN) | payer MEDICARE, MEDICAID ==
[~2024-07-01] VITALS: Ht 157.5 cm; Wt 82.2 kg
[~2024-07-01 15:48] MED LIST changes: +BACL20TA PO; +DOCU-265 PO; +HYDR-4798 PO; +LIDO5DIS21 TOP; +MELO15TA29 PO; -PARO1TAB33; +PARO1TAB33 PO; +POTA-228 PO; +SIMV20TA20 PO
--- NOTE | 2024-07-01 16:24 | ED.PDOC ---
GI ASSESSMENT HPI Comments This is a 59-year-old female who comes in with chief complaint of left lower quadrant pain since last night. The patient states that she has has a history of chronic ulcerative colitis as well as Crohn's disease and she feels that the pain is somewhat similar. She is having some nausea as well as diarrhea. She denies any fever or chills. The patient denies any blood in the stool. She states that the pain is sharp in nature and nonradiating at this time. She has has a history of colectomy secondary to the chronic ulcerative colitis and the Crohn's disease. Chief Complaint: Abdominal Pain Time Seen by MD: 15:50 Primary Care Provider: unknown Reviewed Notes: Nurses Notes, Medications, Allergies (Allergies listed above) Allergies: Coded Allergies: Latex (Verified Allergy, Mild, 06/02/24) INCLUDING TAPE, BROWN AND CLEAR TAPE Procaine (Verified Allergy, Unknown, 03/12/14) Home Meds Active Scripts Lidocaine (LIDODERM 5% TOPICAL PATCH) 1 Patch Ph, 1 PATCH TOP DAILY for 30 Days, #30 PATCH 0 Refills Prov:MIAN ROMO SUPERVISOR [employer]RIERS 06/02/24 Polyethylene Glycol 3350 (Miralax) 17 Gm Pow, 17 GM PO DAILY for 15 Days, #15 POW Prov:DONNAADAN ANNRAGHU Alvarez SUPER[employer] 05/03/24 Cephalexin Monohydrate (Cephalexin) 500 Mg Cap, 500 MG PO QID for 5 Days, #20 CAP Prov:TED HUSSEIN Kim SUPERVISOR [employer] 05/03/24 Fluconazole (Diflucan) 150 Mg Tab, 1 TAB PO ONCE, #1 TAB 1 Refill Prov:JOVITATED M SUPERVISOR [employer] 05/03/24 Baclofen (Baclofen) 10 Mg Tab, 10 MG PO Q8HP PRN for 5 Days, #15 TAB Prov:DONNAADAN ANNRAGHU Alvarez SUPERVIS[employer] 05/03/24 Albuterol Sulfate (Albuterol Sulfate Hfa) 108 Mcg/Act Aer, 108 MCG IN BID PRN for 10 Days, #1 AER 0 Refills Prov:LILI LUNSFORD DO 12/01/22 Reported Medications Paroxetine Hydrochloride (Paroxetine Hydrochloride) 20 Mg Tab, 1 DAILY 05/01/24 Potassium Chloride (POTASSIUM CHLORIDE CR) 10 Meq Tb, 10 MEQ PO, TAB 11/28/23 Cholestyramine (Cholestyramine) 4 Gm/Dose Pow, PO 10/18/23 Tirzepatide (Mounjaro) 7.5 Mg/0.5 Ml Inj, SC 10/18/23 Sitagliptin Phosphate (Januvia) 100 Mg Tab, 1 TAB PO DAILY 10/18/23 Clopidogrel Bisulfate (CLOPIDOGREL) 75 Mg Tab, 1 TAB PO DAILY 10/18/23 Furosemide (Furosemide) 40 Mg Tab, 1 TAB PO BID 10/18/23 Atorvastatin Calcium (ATORVASTATIN CALCIUM) 20 Mg Tab, 1 TAB PO DAILY 10/17/23 Cholecalciferol (Vitamin D-3 Super Strengt) 2,000 Unit Tab, 1 TAB PO DAILY 10/17/23 Gabapentin (Gabapentin) 300 Mg Cap, 1 CAP PO Q8H 10/17/23 Aspirin (Aspirin Low Dose) 81 Mg Tab, 1 TAB PO DAILY 10/17/23 Balsalazide Disodium (Balsalazide Disodium) 750 Mg Cap, PO 10/17/23 Information Source: Patient Mode of Arrival: Ambulatory Timing: Days Duration: Since onset Prehospital treatment: None Quality: Sharp Vomitus: None Stool: Watery Severity: Moderate Recent: None Recent Hx of: Abdominal Operations, Diabetes, Other (Crohn's disease, ulcerative colitis) Pain Location: LLQ Modifying Factors: Nothing Associated sign and symptoms: Nausea, Diarrhea, Abdominal Pain Past Medical History PAST MEDICAL HISTORY: Angina, CAD, CHF, CVA, DM, High Lipids, Kidney Stones, Liver (Fatty liver), IN Surgical History: Cholecystectomy, Hernia Repair Surgical History (Other): Right CEA, left knee surgery, colectomy APPRAISER LAND History: No Pertinent APPRAISER LAND History Family History Family History: Family hx of Cancer, Family hx of heart naveen Social History Smoker: Non-Smoker Alcohol: Denies ETOH Use Drugs: Denies Drug Use Lives In: Home Constitutional: denies: chills, diaphoresis, fatigue, fever, malaise, sweats, weakness, others EENTM: denies: blurred vision, double vision, ear bleeding, ear discharge, ear drainage, ear pain, ear ringing, eye pain, eye redness, hearing loss, mouth pain, mouth swelling, nasal discharge, nose bleeding, nose congestion, nose pain, photophobia, tearing, throat pain, throat swelling, voice changes, others Respiratory: denies: cough, hemoptysis, orthopnea, SOB at rest, shortness of breath, SOB with excertion, stridor, wheezing, others Cardiovascular: denies: chest pain, dizzy spells, diaphoresis, Dyspnea on exertion, edema, irregular heart beat, left arm pain, lightheadedness, palpitations, PND, syncope, others Gastrointestinal: reports: abdomen distended, diarrhea, nausea; denies: abdominal pain, blood streaked bowels, constipated, dysphagia, difficulty swallowing, hematemesis, melena, poor appetite, poor fluid intake, rectal bleeding, rectal pain, vomiting, others Genitourinary: denies: abnormal vagina bleeding, burning, dyspareunia, dysuria, flank pain, frequency, hematuria, incontinence, pain, , vagina discharge, urgency, others Neurological: denies: dizziness, fainting, headache, left sided numbness, left sided weakness, numbness, paresthesia, pre-existing deficit, right sided numbness, right sided weakness, seizure, speech problems, tingling, tremors, weakness, others Musculoskeletal: denies: back pain, gout, joint pain, joint swelling, muscle pain, muscle stiffness, neck pain, others Integumetry: denies: bruises, change in color, change in hair/nails, dryness, laceration, lesions, lumps, rash, wounds, others Allergic/Immunocompromised: denies: Difficulty Healing, Frequent Infections, Hives, Itching, others Hematologic/Lymphatic: denies: anemia, blood clots, easy bleeding, easy bruising, swollen glands, others Endocrine: denies: excessive hunger, excessive sweating, excessive thirst, excessive urination, flushing, intolerance to cold, intolerance to heat, unexplained weight gain, unexplained weight loss, others Psychiatric: denies: anxiety, bipolar disorder, depression, hopeless, panic disorder, schizophrenia, sleepless, suicidal, others Physical Exam General Appearance: Moderate Distress HEENT: Normal ENT Inspection, Pharynx Normal, TMs Normal Neck: Full Range of Motion, Non-Tender, Normal, Normal Inspection Respiratory: Chest Non-Tender, Lungs Clear, No Accessory Muscle Use, No Respiratory Distress, Normal Breath Sounds Cardiovascular: No Edema, No JVD, No Murmur, No Gallop, Normal Peripheral Pulses, Regular Rate/Rhythm Breast Exam: Deferred Gastrointestinal: LLQ, No Organomegaly, No Pulsatile Mass, Normal Bowel Sounds, Soft, Tenderness Genitalia: Deferred Pelvic: Deferred Rectal: Deferred Extremities: No calf tenderness, Normal capillary refill, Normal inspection, Normal range of motion, Non-tender, No pedal edema Musculoskeletal : Apperance: Normal Neurologic: Alert, mask inspector II-XII nml as Tested, No Motor Deficits, Normal Affect, Normal Mood, No Sensory Deficits Cerebellar Function: Normal Reflexes: Normal Skin: Dry, Normal Color, Warm Lymphatic: No Adenopathy Was a procedure done? Was a procedure done?: No GI differential Dx Differential Diagnosis: Bowel Obstruction, Cholecystitis, Gastritis/PUD, Gastroenteritis, GI hemorrhage, Pancreatitis, Electrolyte Imbalance X-Ray, Labs, Meds, VS Vital Signs Date Time Temp Pulse Resp B/P (MAP) Pulse Ox O2 Delivery O2 Flow Rate FiO2 07/01/24 16:46 97.6 95 18 107/68 (81) 95 97.6 07/01/24 16:46 95 18 95 Room Air 07/01/24 16:00 97.8 76 16 111/69 (83) 97 97.8 Lab Test 07/01/24 16:43 Range/Units White Blood Count 9.1 4.4-10.8 10^3/uL Red Blood Count 5.19 4.0-5.20 10^6/uL Hemoglobin 15.1 12.2-16.2 g/dL Hematocrit 45.7 36.0-46.0 % Mean Corpuscular Volume 88.2 80.0-100.0 fL Mean Corpuscular Hemoglobin 29.2 28.0-32.0 pg Mean Corpuscular Hemoglobin Concent 33.1 32.0-36.0 g/dL Red Cell Distribution Width 14.9 H 11.8-14.3 % Platelet Count 230 140-450 10^3/uL Mean Platelet Volume 8.8 6.9-10.8 fL Neutrophils (%) (Auto) 67.9 37.0-80.0 % Lymphocytes (%) (Auto) 24.9 10.0-50.0 % Monocytes (%) (Auto) 4.4 0.0-12.0 % Eosinophils (%) (Auto) 2.1 0.0-7.0 % Basophils (%) (Auto) 0.7 0.0-2.0 % Neutrophils # (Auto) 6.2 1.6-8.6 10 ^3/uL Lymphocytes # (Auto) 2.3 0.4-5.4 10 ^3/uL Monocytes # (Auto) 0.4 0-1.3 10 ^3/uL Eosinophils # (Auto) 0.2 0-0.8 10 ^3/uL Basophils # (Auto) 0.1 0-0.2 10 ^3/uL Nucleated Red Blood Cells 0.1 % Sodium Level Pending Potassium Level Pending Chloride Level Pending Carbon Dioxide Level Pending Anion Gap Pending Blood Urea Nitrogen Pending Creatinine Pending Glomerular Filtration Rate Calc Pending BUN/Creatinine Ratio Pending Serum Glucose Pending Calcium Level Pending Total Bilirubin Pending Aspartate Amino Transferase (AST) Pending Alanine Aminotransferase (ALT) Pending Alkaline Phosphatase Pending Total Protein Pending Albumin Pending Lipase Pending Scan of the abdomen and pelvis shows: IMPRESSION: 1. There is no acute process in the abdomen and pelvis. 2. Scattered colonic diverticula without evidence of acute diverticulitis. 3. Stable fibroid uterus. The patient's CBC is within normal limits The patient was having intractable abdominal pain The patient was being given morphine 4 mg IV push The patient was given Zofran 4 mg IV push for the nausea Images Reviewed?: Images reviewed and evaluated by me Time of 1ST Reevaluation: 16:24 Reevaluation 1ST: Unchanged Patient Education/Counseling: Diagnosis, Treatment, Prognosis Family Education/Counseling: No Family Present Departure 1 Departure Time of Disposition: 17:17 Impression: Primary Impression: Intractable abdominal pain Additional Impressions: Diarrhea Qualified Codes: R19.7 - Diarrhea, unspecified Chronic ulcerative colitis Qualified Codes: K51.919 - Ulcerative colitis, unspecified with unspecified complications Disposition: ADMITTED INPATIENT Admit to: Med Surg Condition: Fair Critical Care Note Critical Care Time?: No Stability Stability form required: Yes Unstable for transfer: ED Physician Assesment (Clinical assesment) Heart Score Heart Score: Heart Score Response (Comments) Value History N/A 0 EKG N/A 0 Age N/A 0 Risk Factors N/A 0 Troponin N/A 0 Total 0 SEAN ZEPEDA MD Jul 01, 2024 16:24
--- NOTE | 2024-07-01 16:44 | DVH ---
CT ABDOMEN AND PELVIS WITHOUT CONTRAST CLINICAL HISTORY: Lower quadrant pain TECHNIQUE: Multiple contiguous axial images of the abdomen and pelvis without intravenous contrast. T he images were reformatted degenerate coronal and sagittal reconstructions. All CT scans at this medical facility are performed using dose modulation techniques as appropriate t o a performed exam including the following:Automated exposure control was utilized; adjustment of the MA and/or KV according to patient size; and use of iterative reconstruction technique. Radiation Dose Information: CT Dose: CTDI volume is 11 mGy. Dose-length product is 580 mGy*cm Comparison: CT CT AB PEL WO CON-NO ORAL OR IV on DOS: 04/29/24, CT CT AB PEL WO CON-NO ORAL OR IV on D OS: 11/03/23 FINDINGS: Evaluation of the abdomen and pelvis is limited without intravenous contrast. There is a stable 5 mm left renal cortical calcification. There is no renal calculus. There is no hydronephrosis. The gallbladder is surgically absent. The liver, pancreas, adrenal glands, and spleen appear withi n normal limits. There is no gross evidence of abdominal lymphadenopathy. There is no free fluid or free air. The stomach grossly appears unremarkable. The small and large bowel loops demonstrate normal caliber . There are scattered diverticula in the colon without evidence of acute diverticulitis. The abdominal aorta and IVC appear within normal limits. There is no evidence of a distal ureteral calculus or hydroureter. The bladder is poorly filled limit ing evaluation. There is stable appearance of fibroid uterus.. There is no gross evidence of a pelvi c mass. There is no free fluid collection. There are postsurgical changes in the anterior pelvic wall . Lung bases are clear. There is no acute osseous abnormality. IMPRESSION: 1. There is no acute process in the abdomen and pelvis. 2. Scattered colonic diverticula without evidence of acute diverticulitis. 3. Stable fibroid uterus. HS:Y
[2024-07-01 17:03] LABS: Basophils # (auto) 0.1 10 ^3/uL (0-0.2); Basophils % (auto) 0.7 % (0.0-2.0); Eosinophils # (auto) 0.2 10 ^3/uL (0-0.8); Eosinophils % (auto) 2.1 % (0.0-7.0); Hematocrit 45.7 % (36.0-46.0); Hemoglobin 15.1 g/dL (12.2-16.2); Lymphocytes # (auto) 2.3 10 ^3/uL (0.4-5.4); Lymphocytes % (auto) 24.9 % (10.0-50.0); Mean Corpuscular Hemoglobin 29.2 pg (28.0-32.0); Mean Corpuscular Hgb Conc. 33.1 g/dL (32.0-36.0); Mean Corpuscular Volume 88.2 fL (80.0-100.0); Monocytes # (auto) 0.4 10 ^3/uL (0-1.3); Monocytes % (auto) 4.4 % (0.0-12.0); Neutrophils # (auto) 6.2 10 ^3/uL (1.6-8.6); Neutrophils % (auto) 67.9 % (37.0-80.0); Nucleated Red Blood Cells % 0.1 %; Platelet Count (auto) 230 10^3/uL (140-450); Red Blood Cells 5.19 10^6/uL (4.0-5.20); Red Cell Distribution Width 14.9 % (11.8-14.3); White Blood Cell 9.1 10^3/uL (4.4-10.8)
[2024-07-01 17:21] LABS: Albumin 4.8 g/dL (3.2-4.8); Alkaline Phosphatase 103 U/L (46-116); Anion Gap 7 (5-15); BUN/Creatinine Ratio 9.8 (10.0-20.0); Blood Urea Nitrogen 11 mg/dL (9-23); Carbon Dioxide 26 mmol/L (20-31); Lipase 26 U/L (12-53); Sodium 142 mmol/L (136-145)
[2024-07-01 17:22] LABS: Alanine Aminotransferase < 9 U/L (7-40); Aspartate Aminotransferase 12 U/L (13-40); Bilirubin, Total 0.5 mg/dL (0.2-1.0); Chloride 109 mmol/L (98-107); Glucose 119 mg/dL (74-106)
[2024-07-01] MEDS: MORPHINE SULFATE 4 MG/ML SYR/VIAL IV ONE (18:39)
[2024-07-01] MEDS: methylPREDNISolone SOD SUCC 125 MG/2 ML VL IV ONE (18:39)
[2024-07-01] MEDS: ONDANSETRON HCL 4 MG/2 ML VIAL IV ONE ×2 (18:39→21:15)
[2024-07-01] MEDS: SODIUM CHLORIDE 0.9% 500 ML IVB ONE (18:39)
[2024-07-01] MEDS ORDERED: MORPHINE SULFATE INJ 2 MG/ml SYRG IV PRN (21:15)
--- NOTE | 2024-07-01 21:32 | DVHHPRES ---
History of Present Illness Resident Creating Document: EDELMIRA HECK RESIDENT Reason for Visit: Left LOWER Quadrant pain History of Present Illness Patient is a 59 year old female with a history of crohn's disease and ulcerative colitis on Balsalazide bisodium BID but missed her doses and other medications on Sunday. Patient comes to the ED today complaining of left lower quadrant pain since 9PM last night. The patient stated that the pain she has is similar to the pains she feels when she gets IBD flare. Pain is sharp in nature and localized to the LLQ with no radiatio and it is associated with nauseas and nonbloody diarrhea, but no vomiting. She denies any fever or chills, trauma, ingestion improperly cooked fish or beef or any recent travels. Past medical history: IBD, diabetes, CHF, hypotension, colon cancer, TIA, stroke Past surgical history: cholecystectomy, colectomy for colon cancer removal, and carotid artery surgery right-sided (presence of a scar) Social history: Patient is unemployed, lives [facility], does not drink or smoke Family history noncontributory Review of Systems Review of Systems Constitutional: Denies fever no chills no feeling of malaise.Mild distress HEENT: Denies headache, ear pain, ear discharges, conjunctivitis, nasal discharge throat pain Cardiovascular: Denies chest pain, palpitation, orthopnea, PND, or pedal edema Respiratory: Denies shortness of breath, cough cough, sputum production, hemoptysis, GI: LLQ abdominal pain, nausea, diarrhea; NO VOMITING hematemesis, jen tochezia, : Denies frequency, urgency, hematuria, Endocrine: Denies unintentional weight gain or weight loss, feeling of hot f lashes, Jen: Denies easy bruising, bleeding disorders, epistaxis Musculoskeletal: Denies joint pains, muscle aches Psych: No evidence of depression, timothy, suicidal ideation Allergies: Coded Allergies: Latex (Verified Allergy, Mild, 06/02/24) INCLUDING TAPE, BROWN AND CLEAR TAPE Procaine (Verified Allergy, Unknown, 03/12/14) Exam Vital Signs Vital Signs Date Time Temp Pulse Resp B/P (MAP) Pulse Ox O2 Delivery O2 Flow Rate FiO2 07/01/24 19:09 74 17 124/88 07/01/24 16:46 97.6 95 97.6 07/01/24 16:46 Room Air Exam General Appearance: Alert, Oriented X3, Cooperative, Mild acute distress HEENT: Atraumatic, PERRLA, EOMI, Mucous membrane moist/pink Respiratory: Clear to auscultation, Normal air movement Cardiovascular: Regular rate, Normal S1, Normal S2, No murmurs, no chest wall tenderness Abdominal: distention, tenderness, bowel sounds present, no scars noted Extremities: No clubbing, No cyanosis, No edema, Normal pulses, No tenderness/swelling Skin: No rashes, No breakdown, No significant lesion Neuro: Normal gait, Normal speech, Strength at 5/5 X4 ext, Normal tone, Se nsation intact, Cranial nerves 3-12 NL, Reflexes 2+ Psych/Mental Status: Mental status NL, Mood NL Labs/Xrays Labs Test 07/01/24 16:43 Range/Units White Blood Count 9.1 4.4-10.8 10^3/uL Red Blood Count 5.19 4.0-5.20 10^6/uL Hemoglobin 15.1 12.2-16.2 g/dL Hematocrit 45.7 36.0-46.0 % Mean Corpuscular Volume 88.2 80.0-100.0 fL Mean Corpuscular Hemoglobin 29.2 28.0-32.0 pg Mean Corpuscular Hemoglobin Concent 33.1 32.0-36.0 g/dL Red Cell Distribution Width 14.9 H 11.8-14.3 % Platelet Count 230 140-450 10^3/uL Mean Platelet Volume 8.8 6.9-10.8 fL Neutrophils (%) (Auto) 67.9 37.0-80.0 % Lymphocytes (%) (Auto) 24.9 10.0-50.0 % Monocytes (%) (Auto) 4.4 0.0-12.0 % Eosinophils (%) (Auto) 2.1 0.0-7.0 % Basophils (%) (Auto) 0.7 0.0-2.0 % Neutrophils # (Auto) 6.2 1.6-8.6 10 ^3/uL Lymphocytes # (Auto) 2.3 0.4-5.4 10 ^3/uL Monocytes # (Auto) 0.4 0-1.3 10 ^3/uL Eosinophils # (Auto) 0.2 0-0.8 10 ^3/uL Basophils # (Auto) 0.1 0-0.2 10 ^3/uL Nucleated Red Blood Cells 0.1 % Sodium Level 142 136-145 mmol/L Potassium Level 4.0 3.5-5.1 mmol/L Chloride Level 109 H 98-107 mmol/L Carbon Dioxide Level 26 20-31 mmol/L Anion Gap 7 5-15 Blood Urea Nitrogen 11 9-23 mg/dL Creatinine 1.12 H 0.550-1.02 mg/dL Glomerular Filtration Rate Calc 56 >90 mL/min BUN/Creatinine Ratio 9.8 L 10.0-20.0 Serum Glucose 119 H 74-106 mg/dL Calcium Level 10.0 8.7-10.4 mg/dL Total Bilirubin 0.5 0.2-1.0 mg/dL Aspartate Amino Transferase (AST) 12 L 13-40 U/L Alanine Aminotransferase (ALT) < 9 7-40 U/L Alkaline Phosphatase 103 46-116 U/L Total Protein 7.0 5.7-8.2 g/dL Albumin 4.8 3.2-4.8 g/dL Lipase 26 12-53 U/L Assessment/Plan Assessment/Plan Assessment Possible IBD flare up LLQ pain,Scattered colonic diverticula without evidence of acute diverticulitis. Chronic IBD ( Crohn's and Ulcerative colitis) Chronic HFpEF ( last echo was 10/2023, EF 55-60%) DEVORA due to VMN Stable fibroid uterus History of carotid stenosis s/p endarterectomy vs bypass Recurrent TIA, witnessed one History Colon cancer s/p resection 2022 Obesity Stool incontinence Bacteruria Recurrent UTI pericardial effusion chronic back pain, takes [place] 10 qid at home plan: Keep NPO Give Zofran Morphine for pain IV fluid MethylPrednisolone 40 mg daily Continue home medications Pending UA and UDS CT Head DVT prophylaxis: Lovenox Diet: NPO Goal of care discussed for more than 30 minutes: Full code Case and plan discussed with Dr. Don Plan discussed with: Patient My Orders Orders - EDELMIRA HECK RESIDENT Procedure Category Date Status Time Admit ADMIT 07/01/24 Transmitted 21:01 Code Status CODE 07/01/24 Transmitted 21:01 Vital Signs YESSY 07/01/24 In Process 21:01 Review Orders With YESSY 07/01/24 In Process Adm. 21:01 Npo (Nothing By DIET 07/02/24 Transmitted Mouth) Diet Breakfast Notify Md Of Changes YESSY 07/01/24 In Process From Base 21:01 Advance Directive YESSY 07/01/24 In Process 21:01 Patient Condition ORDERS 07/01/24 Transmitted 21:01 Allergies YESSY 07/01/24 In Process 21:01 Ondansetron Hcl PHA 07/01/24 Transmitted (Zofran) 21:15 Morphine 2mg Iv Q4hprn PHA 07/01/24 Transmitted 21:15 Lovenox 40mg PHA 07/02/24 Transmitted 10:00 Notify Md Of Changes YESSY 07/01/24 In Process From Base 21:01 Ondansetron Hcl PHA 07/01/24 Transmitted (Zofran) 21:15 Lactated Ringers Lr PHA 07/01/24 Transmitted 21:15 Albuterol Inhaler PHA 07/01/24 Transmitted (Ventolin Hfa) 21:15 Atorvastatin (Lipitor) PHA 07/02/24 Transmitted 10:00 Baclofen Tablet PHA 07/01/24 Transmitted (Liorisal Tablet) 21:15 Clopidogrel Bisulfate PHA 07/02/24 Transmitted (Plavix) 10:00 Furosemide Tablet PHA 07/01/24 Transmitted (Lasix Tablet) 22:00 Lidocaine 5% Topical PHA 07/02/24 Transmitted Patch (Lidoderm 5% 10:00 Polyethylene Glycol PHA 07/02/24 Transmitted 17g Powder (Miralax 10:00 Gabapentin Capsule PHA 07/01/24 Transmitted (Neurontin Capsule) 21:15 Paroxetine Tablet PHA 07/02/24 Transmitted (Paxil Tablet) 10:00 Drug Screen LAB 07/01/24 Transmitted 21:01 Thyroid Stimulating LAB 07/01/24 Transmitted Hormone 21:01 Hemoglobin A1c LAB 07/01/24 Transmitted 21:01 Lipid Panel LAB 07/01/24 Transmitted 21:01 Date of Service: Jul 01, 2024 Billing Provider: BRAEDEN DON MD Common Visit Codes: [id number] INP/OBS CARE (HIGH) Secondary Visit Codes: 36983-[id number] CARE PLAN 30 MINUTES EDELMIRA HECK RESIDENT Jul 01, 2024 21:32 BRAEDEN DON MD Jul 02, 2024 10:59
[2024-07-01 21:38] LABS: Cholesterol 158 mg/dL (< 200)
[2024-07-01] MEDS: FUROSEMIDE 40 MG TAB PO SCH (22:00)
[2024-07-01 22:02] LABS: HDL Cholesterol 36 mg/dL (40-59); LDL Cholesterol 102 mg/dL (< 100); Triglycerides 164 mg/dL (< 150)
[2024-07-02] VITALS (7 sets, daily range): BP systolic 12–137; BP diastolic 61–75; PULSE 53–83; RESP 16–19; TEMP 97.5–98; O2SAT 94–96
[2024-07-02] MEDS: MORPHINE SULFATE INJ 2 MG/ml SYRG IV PRN (03:33)
--- NOTE | 2024-07-02 03:52 | DVH ---
EXAM: CT HEAD WITHOUT CONTRAST INDICATION: TIA TECHNIQUE: CT of the head without intravenous contrast. Radiation Dose Information: CT Dose: CTDI volume is 50.46 mGy. Dose-length product is 809.12 mGy*cm The dose indicators for CT are the volume Computed Tomography (CT) Dose Index (CTDIvol) and the Dose Length Product (DLP), and are measured in units of mGy and mGy-cm, respectively. These indicators are not patient dose, but values generated from the CT scanner acquisition factors. The report includes radiation exposure data for exposures received during this examination. COMPARISON: CT HEAD WITHOUT CONTRAST on DOS: 06/02/24, CT HEAD WITHOUT CONTRAST on DOS: 04/29/24, CT HE AD WITHOUT CONTRAST on DOS: 11/01/23 FINDINGS: There is no evidence of acute intracranial hemorrhage, extra-axial collection, mass effect, midline s hift, herniation or hydrocephalus. The ventricles, sulci and cisterns are age appropriate. The rankin-white differentiation is intact. Patchy periventricular and subcortical white matter hypoattenuation is nonspecific but may be related to small vessel ischemic disease. The visualized paranasal sinuses and mastoid air cells are clear. The surrounding soft tissues and osseous structures are unremarkable. IMPRESSION: 1. No acute intracranial abnormality.
[2024-07-02] MEDS: GABAPENTIN 300 MG CAP PO SCH (04:16)
[2024-07-02] MEDS: ONDANSETRON HCL 4 MG/2 ML VIAL IV PRN (04:17)
[2024-07-02] MEDS: LACTATED RINGER'S 1,000 ML IV SCH ×2 (04:18→06:32)
[2024-07-02] MEDS ORDERED: ALBUTEROL MEDNEB 2.5 mg/3ml NEB NEB PRN ×2 (05:30→10:00)
[2024-07-02] MEDS ORDERED: PIPERACILLIN-TAZOB 3.375GM 100 ML IV SCH (06:00)
[2024-07-02 07:12] LABS: Basophils # (auto) 0 10 ^3/uL (0-0.2); Basophils % (auto) 0.3 % (0.0-2.0); Eosinophils # (auto) 0 10 ^3/uL (0-0.8); Hematocrit 42.4 % (36.0-46.0); Lymphocytes % (auto) 13.7 % (10.0-50.0); Mean Corpuscular Hemoglobin 29.1 pg (28.0-32.0); Mean Corpuscular Volume 88.1 fL (80.0-100.0); Monocytes # (auto) 0 10 ^3/uL (0-1.3); Monocytes % (auto) 0.3 % (0.0-12.0); Neutrophils # (auto) 6.1 10 ^3/uL (1.6-8.6); Neutrophils % (auto) 85.7 % (37.0-80.0); Nucleated Red Blood Cells % 0.1 %; Platelet Count (auto) 190 10^3/uL (140-450); Red Blood Cells 4.81 10^6/uL (4.0-5.20); White Blood Cell 7.1 10^3/uL (4.4-10.8)
[2024-07-02 07:21] LABS: Anion Gap 11 (5-15); Carbon Dioxide 22 mmol/L (20-31); Potassium 4.2 mmol/L (3.5-5.1); Sodium 141 mmol/L (136-145)
[2024-07-02 07:22] LABS: Calcium 9.6 mg/dL (8.7-10.4)
[2024-07-02 07:27] LABS: Blood Urea Nitrogen 12 mg/dL (9-23)
[2024-07-02 07:28] LABS: CRP High Sensitivity 0.45 mg/dL (<1.0)
[2024-07-02 07:29] LABS: Chloride 108 mmol/L (98-107); Glucose 185 mg/dL (74-106)
[2024-07-02] MEDS: PIPERACILLIN-TAZOB 3.375GM 100 ML IV SCH (09:02)
[2024-07-02 09:27] LABS: Erythrocyte Sedimentation Rate 8 mm/hr (0-20)
[2024-07-02] MEDS ORDERED: POLYETHYLENE GLYCOL 17 GM PWDR PO SCH (10:00)
--- NOTE | 2024-07-02 10:02 | DVHPN2 ---
Progress Note - Dictate Date Seen: Jul 02, 2024 Medical Necessity Reason Pt with a Central, PICC or Fol: No vital signs Vital Sign Date Time Temp Pulse Resp B/P (MAP) Pulse Ox O2 Delivery O2 Flow Rate FiO2 07/02/24 08:59 54 14 110/63 07/02/24 07:51 97.7 96 0.0 21 97.7 07/01/24 16:46 Room Air Total Intake and Output 07/01/24 07/01/24 07/02/24 15:00 23:00 07:00 Intake Total 500 ml Balance 500 ml medications Current Medications Medications Dose Ordered Sig/Damon Route Start Time Stop Time Status Last Admin Dose Admin Ondansetron HCl 4 mg Q4HP PRN IV 07/01/24 21:15 07/02/24 04:17 4 MG Enoxaparin Sodium 40 mg DAILY SC 07/02/24 10:00 Atorvastatin Calcium 20 mg DAILY PO 07/02/24 10:00 Baclofen 10 mg Q8HP PRN PO 07/01/24 21:15 Clopidogrel Bisulfate 75 mg DAILY PO 07/02/24 10:00 Lidocaine 1 patch DAILY TOP 07/02/24 10:00 Polyethylene Glycol 17 gm DAILY PO 07/02/24 10:00 Gabapentin 300 mg Q8H PO 07/01/24 21:15 07/02/24 04:16 300 MG Paroxetine HCl 20 mg DAILY PO 07/02/24 10:00 Morphine Sulfate 4 mg Q4HPRN PRN IV 07/01/24 23:15 07/02/24 08:34 4 MG Methylprednisolone Sodium Succinate 40 mg BID IV 07/02/24 10:00 Lactated Ringer's 1,000 ml @ 75 mls/hr [id number] IV 07/02/24 05:30 07/02/24 06:32 75 MLS/HR Albuterol 2.5 mg Q6HP PRN NEB 07/02/24 05:30 Piperacillin Sod/ Tazobactam Sod 100 ml @ 25 mls/hr Q8HR IV 07/02/24 08:00 07/02/24 09:02 25 MLS/HR objective General Appearance: alert, no distress HEENT: EOMI, PERRLA, normal external inspect of ears, no icterus, no nasal drainage Neck: no carotid bruit, no jugular venous distention (JVD), no lymphadenopathy Chest: normal thorax Respiratory: clear to auscultation, normal air movement Cardiovascular: regular rate and rhythm, no diastolic murmur, no jugular venous distention (JVD), no rub, no systolic murmur Abdominal: soft, no hepatomegaly, no mass, no splenomegaly, no tenderness Genitourinary: grossly normal external Musculoskeletal: no joint tenderness, no swelling Extremities: normal pulses, no calf tenderness, no clubbing, no cyanosis, no edema Skin: no bruising, no jaundice, no rash Neurological: alert, No focal deficit laboratory and microbiology Laboratory Tests 07/02/24 06:40 Test 07/02/24 06:40 Range/Units Serum Glucose 185 H 74-106 mg/dL Problem List 1. Recurrent UTI Monitor, send UA, IV abx 2. Acute on chronic ulcerative colitis Monitor, IV abx 3. Mixed hyperlipidemia Monitor, medications 4. DM II with hyperglycemia Monitor, insulin ss 5. S/p colectomy Monitor 6. Hx CVA with residual weakness Monitor, restart anticoagulation 7. CAD Monitor Assessment/Plan Subjective: Patient is awake and alert. Objective: Patient was admitted for left lower abdominal pain most likely ulcerative colitis. Patient has a history of a colectomy in the past. Patient was started on mesalamine. Patient also has a history of recurrent UTI. Urinalysis is pending. Plan: Continue current treatment. Continue antibiotics and steroids and mesalamine for colitis. Await urinalysis. Monitor daily labs. Continue as needed pain medication. Plan discussed with: Patient, Other TED HUSSEIN NP Jul 02, 2024 10:02
[2024-07-02 10:28] LABS: Urine Bacteria None Seen /hpf (None Seen)
[2024-07-02 10:40] LABS: Urine Blood Negative /uL (Negative); Urine Budding Yeast OCCASIONAL /hpf (None Seen); Urine Clarity Turbid (Clear); Urine Color Light-Yellow (Yellow); Urine Mucus FEW (None Seen); Urine Protein, UAD TRACE (Negative); Urine Specific Gravity 1.026 (1.001-1.035); Urine Squamous Epithelial Cell FEW /hpf (<5); Urine Urobilinogen Normal (Negative); Urine WBC 9 /HPF (0-5); Urine pH 5.5 (5.0-9.0)
[2024-07-02 10:56] LABS: Amphetamine Screen, Urine Neg (NEGATIVE); Barbiturate Scree,Urine Neg (NEGATIVE); Benzodiazephine Screen, Urine Neg (NEGATIVE); Cannabinoid Screen, Urine Neg (NEGATIVE); Cocaine Screen, Urine Neg (NEGATIVE); Opiate Scree,Urine Pos (NEGATIVE); Phencyclidine Screen, Urine Neg (NEGATIVE)
[2024-07-02] MEDS: methylPREDNISolone SOD SUCC 40 MG/ML VL IV SCH (10:59)
[2024-07-02] MEDS: CLOPIDOGREL BISULFATE 75 MG TAB PO SCH (11:00)
[2024-07-02] MEDS: ENOXAPARIN SOD 40 MG/0.4 ML SYRINGE SC SCH (11:00)
[2024-07-02] MEDS: ATORVASTATIN 20 MG TAB PO SCH (11:00)
[2024-07-02] MEDS: PARoxetine 20 MG TAB PO SCH (11:15)
[2024-07-02] MEDS: MESALAMINE 400mg Delayed Release Cap PO SCH (11:15)
[2024-07-02] MEDS: LIDOCAINE 5% TOPICAL PATCH TOP SCH (11:16)
[2024-07-03] VITALS (48 sets, daily range): BP systolic 100–215; BP diastolic 60–140; PULSE 56–139; RESP 15–24; TEMP 97.5–99.4; O2SAT 91–100
--- NOTE | 2024-07-03 12:21 | DVHPN2 ---
Progress Note - Dictate Date Seen: Jul 03, 2024 Medical Necessity Reason Pt with a Central, PICC or Fol: No vital signs Vital Sign Date Time Temp Pulse Resp B/P (MAP) Pulse Ox O2 Delivery O2 Flow Rate FiO2 07/03/24 09:18 74 18 104/62 07/03/24 09:00 98.3 91 98.3 07/02/24 21:23 Room Air* 0 21 Total Intake and Output 07/02/24 07/02/24 07/03/24 15:00 23:00 07:00 Intake Total 100 ml Output Total 500 ml Balance -400 ml medications Current Medications Medications Dose Ordered Sig/Damon Route Start Time Stop Time Status Last Admin Dose Admin Ondansetron HCl 4 mg Q4HP PRN IV 07/01/24 21:15 07/03/24 09:17 4 MG Enoxaparin Sodium 40 mg DAILY SC 07/02/24 10:00 07/03/24 09:16 40 MG Atorvastatin Calcium 20 mg DAILY PO 07/02/24 10:00 07/03/24 09:16 20 MG Baclofen 10 mg Q8HP PRN PO 07/01/24 21:15 Clopidogrel Bisulfate 75 mg DAILY PO 07/02/24 10:00 07/03/24 09:16 75 MG Lidocaine 1 patch DAILY TOP 07/02/24 10:00 07/03/24 10:00 1 PATCH Gabapentin 300 mg Q8H PO 07/01/24 21:15 07/03/24 06:22 300 MG Paroxetine HCl 20 mg DAILY PO 07/02/24 10:00 07/03/24 09:16 20 MG Morphine Sulfate 4 mg Q4HPRN PRN IV 07/01/24 23:15 07/03/24 09:18 4 MG Methylprednisolone Sodium Succinate 40 mg BID IV 07/02/24 10:00 07/03/24 09:15 40 MG Lactated Ringer's 1,000 ml @ 75 mls/hr [id number] IV 07/02/24 05:30 07/03/24 08:10 75 MLS/HR Albuterol 2.5 mg Q6HP PRN NEB 07/02/24 05:30 Piperacillin Sod/ Tazobactam Sod 100 ml @ 25 mls/hr Q8HR IV 07/02/24 08:00 07/03/24 06:30 25 MLS/HR Mesalamine 800 mg TID PO 07/02/24 10:15 07/03/24 06:22 800 MG objective General Appearance: alert, no distress HEENT: EOMI, PERRLA, normal external inspect of ears, no icterus, no nasal drainage Neck: no carotid bruit, no jugular venous distention (JVD), no lymphadenopathy Chest: normal thorax Respiratory: clear to auscultation, normal air movement Cardiovascular: regular rate and rhythm, no diastolic murmur, no jugular venous distention (JVD), no rub, no systolic murmur Abdominal: soft, no hepatomegaly, no mass, no splenomegaly, no tenderness Genitourinary: grossly normal external Musculoskeletal: no joint tenderness, no swelling Extremities: normal pulses, no calf tenderness, no clubbing, no cyanosis, no edema Skin: no bruising, no jaundice, no rash Neurological: alert, No focal deficit laboratory and microbiology Laboratory Tests 07/02/24 06:40 Test 07/02/24 06:40 Range/Units Serum Glucose 185 H 74-106 mg/dL Problem List 1. Recurrent UTI Monitor, send UA, IV abx 2. Acute on chronic ulcerative colitis Monitor, IV abx 3. Mixed hyperlipidemia Monitor, medications 4. DM II with hyperglycemia Monitor, insulin ss 5. S/p colectomy Monitor 6. Hx CVA with residual weakness Monitor, restart anticoagulation 7. CAD Monitor Assessment/Plan Subjective: Patient is awake and alert. Objective: Diet was advanced today; however, patient choked on her food and has a large food bolus in her throat. Pulmonary and GI have been consulted. Patient may need a bronchoscopy. Patient was admitted for ulcerative colitis. Plan: Continue current treatment. Continue insulin sliding scale for diabetes. Monitor for airway aspiration. Plan discussed with: Patient, Other TED HUSSEIN NP Jul 03, 2024 12:21
[2024-07-03] MEDS ORDERED: DEXTROSE (50%) 50ML SYRG IV PRN (12:45)
[2024-07-03] MEDS: NOREPINEPHRINE 8 MG/250ML KIT 250 ML IV SCH (14:45)
[2024-07-03] MEDS: fentaNYL Drip 2500mCg/250mlNS 250 ML IV SCH (14:45)
[2024-07-03] MEDS: GLYCOPYRROLATE 0.2 MG/ML 1ML VIAL IV ONE ×2 (14:45→15:48)
[2024-07-03] MEDS: ROCURONIUM 10MG/ML 10ML VIAL IV ONE ×2 (15:00→15:47)
[2024-07-03] MEDS: ETOMIDATE (2MG/ML) 20ML VIAL IV ONE (15:46)
[2024-07-03] MEDS: DexAMETHasone SOD PHOS 10MG/1ML VIAL INJ ONE (15:48)
[2024-07-03] MEDS ORDERED: SODIUM CHLORIDE LOCK 10 ML ONE (15:58)
[2024-07-03] MEDS ORDERED: fentaNYL CITRATE 100 MCG/2 ML VL ONE (15:59)
--- NOTE | 2024-07-03 16:05 | DVH ---
CHEST RADIOGRAPH Indication: INTUBATION Technique: Single frontal view of the chest was obtained Comparison: XY CHEST XRAY 1 VIEW on DOS: 04/29/24, XY CHEST XRAY 1 VIEW on DOS: 02/25/24, XY CHEST POR TABLE on DOS: 11/27/23 FINDINGS: Lines and Tubes: Endotracheal tube in place 2.7 cm above the dante. Enteric tube below the left diap hragm in the stomach. Lungs: Bibasilar areas of infiltrate or atelectasis. Pleura: No effusion. No pneumothorax. Cardiomediastinal contours: Unremarkable Bones: No acute osseous abnormality. IMPRESSION: 1. Endotracheal tube 2.7 cm above the dante. 2. Enteric tube in the stomach 3. Bibasilar areas of atelectasis or infiltrate.
[2024-07-03] MEDS: MIDAZOLAM HCL 5 MG/ML-1ML VIAL ONE (16:30)
[2024-07-03] MEDS: MIDAZOLAM DRIP 50 mg/50mL 50 ML IV SCH (16:30)
--- NOTE | 2024-07-03 16:45 | DVHNC2 ---
Procedure - July 03, 2024 PROCEDURE PERFORMED BY: DR. YOSI ZAMUDIO REFERRING PROVIDER: ODETTE PROCEDURE PERFORMED: 1. ESOPHAGOGASTRODUODENOSCOPY WITH MODERATE SEDATION PRE-PROCEDURE DIAGNOSIS: 1. SUSPECTED FOOD IMPACTION POSTPROCEDURE DIAGNOSIS: 1. RETAINED GASTRIC CONTENTS 2. MILD ESOPHAGITIS INDICATION FOR PROCEDURE: PATIENT IS HOSPITALIZED FOR IBD FLARE UP, NOTED TO HAVE ASPIRATION AND POSSIBLE FOOD IMPACTION. PATIENT IS CURRENTLY INTUBATED. UNDERWENT BRONCHOSCOPY WHICH WAS REPORTEDLY NEGATIVE. MEDICATIONS USED: 2 MG OF VERSED IV DETAILS OF THE PROCEDURE: INFORMED CONSENT WAS OBTAINED AFTER RISKS, BENEFITS, AND ALTERNATIVES WERE DISCUSSED AT LENGTH WITH THE PATIENT'S DAUGHTER. THE PATIENT'S DAUGHTER GAVE CONSENT TO THE PROCEDURE WELL THE MEDICATION USED FOR SEDATION . THE PATIENT WAS IN THE SUPINE POSITION. AN OLYMPUS ENDOSCOPE WAS INSERTED INTO THE OROPHARYNX, ADVANCED INTO THE ESOPHAGUS, THEN INTO THE STOMACH, THEN INTO THE DUODENAL BULB. THE SCOPE WAS THEN WITHDRAWN. THE PATIENT HAD RETAINED GASTRIC CONTENTS. THERE WAS A FOOD BOLUS IN THE PROXIMAL STOMACH. THIS WAS LIKELY THE FOOD THAT WAS IMPACTED. THE ESOPHAGUS SHOWED MILD ESOPHAGITIS. THE Z-LINE WAS AT 37 CM. THE SCOPE WAS THEN WITHDRAWN AND PROCEDURE COMPLETED. THE PATIENT TOLERATED THE PROCEDURE WELL. LIMIT TO VISUALIZATION WAS NOTED OF THE STOMACH DUE TO RETAINED GASTRIC CONTENTS IMPRESSION: 1. SUSPECTED FOOD IMPACTION, NO FOOD IN THE ESOPHAGUS, RETAINED FOOD IN THE STOMACH LIKELY THE FOOD BOLUS HAS PASSED 2. MILD EROSIVE ESOPHAGITIS RECOMMENDATIONS: 1. REPEAT EGD OUTPATIENT TO EVALUATE FOR EOSINOPHILIC ESOPHAGITIS 2. EXTUBATE PER PULMONARY 3. SIGNING OFF PLEASE RECONSULT P.R.N. 4. ENCOURAGED PATIENT TO CHEW FOOD THOROUGHLY 5. ANTI-REFLUX PRECAUTIONS YOSI ZAMUDIO MD Jul 03, 2024 16:45
[2024-07-03] MEDS: ACCU-CHEK COMFORT CURVE STRIP VI SCH (17:00)
[2024-07-03] MEDS: InsuLIN REG 1unit/0.01ml Soln (100units/ml) SC SCH (17:00)
--- NOTE | 2024-07-03 18:27 | DVHNC2 ---
Procedure - Procedure: Endotracheal Intubation INDICATION: Respiratory distress, possible foreign body in airway Physician: Luisa Ovalle MD Assisted: Dr Rincon, RN RT Idalia Mondragon CONSENT: Emergent procedure. Implied. Patient medications and allergies reviewed. Patient identification and proposed procedure were verified prior to the procedure by the physician, and a nurse in the patient's room. The heart rate, respiratory rate, oxygen saturations, blood pressure, adequacy of pulmonary ventilation, and response to care were monitored throughout the procedure. The physical status of the patient was reassessed after the procedure. PROCEDURE SUMMARY: A time out was performed. My hands were washed immediately prior to the procedure. I wore a surgical cap, mask with protective eyewear, gown and gloves throughout the procedure. The patient was placed on a color television console monitor including continuous pulse oximetry. The patient received 16 mg Etomidate and 50 mg rocuronium for induction. Cricoid pressure was maintained from time induction agent was given to time of cuff b alloon inflation. Using a MAC 4 GlideoScope and a size 8.0 endotracheal tube with stylet, the patient was intubated on the 1 attempt. The stylet was removed and cuff balloon was inflated. Appropriate endotracheal tube position was confirmed by direct visualization of vocal cord passage, fogging of the tube, CO2 colorimetric indicator and symmetric breath sounds. The tube was secured at 20 cm at the lips. ET tube confirmed via bronchoscopy and later with CXR. CPT Code: 51046 LUISA OVALLE MD Jul 03, 2024 18:27
--- NOTE | 2024-07-03 18:30 | DVHNC2 ---
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 Complications: None Procedure: Patient medications and allergies reviewed. The risks and benefits of the procedure and the sedation options and risk were discussed with the patient's healthcare proxy and patient. All questions were answered and informed consent was obtained. Patient identification and proposed procedure were verified prior to the procedure by the physician, and a nurse, and the respiratory therapist in ICU room. The heart rate, respiratory rate, oxygen saturations, blood pressure, adequacy of pulmonary ventilation, and response to care were monitored throughout the procedure. The physical status of the patient was reassessed after the procedure. After obtaining informed consent, the bronchoscope was introduced through the endotracheal tube and advanced into the trachea bronchial tree of both lungs. The procedure was accomplished without difficulty. The patient tolerated the procedure well. Findings: The trachea is in normal caliber. The dante is sharp. The tracheobronchial tree of the right lung was examined to at least the first subsegmental level. The bronchial mucosa and anatomy in the right lung are normal. There are no end obronchial lesions. There was scant whitish secretions from right main stem bronchus onward throughout R6-R10. 10 ml saline applied and removed secretions. The left upper lobe, lingula, and left lower lobe were examined to at least the first subsegmental level. Bronchial mucosa and anatomy in the left upper lobe and lingula are normal. There were no endobronchial lesions. There was scant whitish secretions from left main stem bronchus onward throughout L6-L10. 10 ml saline applied and secretions removed. There was no active bleeding at the completion of the procedure. Estimated blood loss: Less than 5 mL. Impression: Removed endobronchial secretions Ruled out foreign body Recommendation: Taper sedation and CPAP when EGD complete Procedure codes: 60133, bronchoscopy, rigid and flexible, including fluoroscopic guidance, one performed; with bronchial endobronchial removal of secretions, single or multiple sites LUISA CHILDERS MD Jul 03, 2024 18:30
--- NOTE | 2024-07-03 23:13 | DVHINCON2 ---
Date of service: Jul 03, 2024 Referring Physician Destiney Hylton MD Reason for Consultation Respiratory distress, possible foreign body in lung vs. esophagus, and asthma exacerbation. History of Present Illness A 59-year-old woman with past medical history of Crohn's disease and ulcerative colitis, on Colazal BID but missed her doses and other medications on Sunday (06/29), who presented to ED on 07/01/24 complaining of left lower quadrant pain since 9 PM night prior to presentation. The patient stated that the pain was similar to the pains she feels when she gets IBD flare. Pain is sharp in nature and localized to the LLQ with no radiation and it is associated with nausea and nonbloody diarrhea but no vomiting. She denied any fever or chills, trauma, ingestion of bad food, or any recent travel. Patient was admitted for further care. Pulmonary consultation is requested for evaluation and management of respiratory distress, possible foreign body in lung vs. esophagus, and asthma exacerbation. Review of Systems: Unable to obtain d/t intubated status Past Medical History: IBD, diabetes, CHF, hypotension, colon cancer, TIA, stroke Past Surgical History: Cholecystectomy, colectomy for colon cancer removal, and right carotid artery surgery (presence of a scar) Medications: Reviewed. Allergies: Latex Procaine Family History: Breast cancer Liver cancer Alzheimer's disease Cardiovascular disease Diabetes mellitus Thyroid disease. Social History: Nonsmoker. No alcohol or illicit drug use. Family History: FH: breast cancer G8 SISTER FH: cancer FH: liver cancer G8 MOTHER, , Cause: Liver cancer Family history: Alzheimer's disease G8 MOTHER, , Cause: Liver cancer, Onset:Unknown Family history: Cardiovascular disease G8 FATHER, , Cause: CHF (congestive heart failure), Onset:Unknown Family history: Diabetes mellitus G8 BROTHER, Onset:Unknown Thyroid disease 19 CHILD Thyroid disease 19 CHILD Allergies: Coded Allergies: Latex (Verified Allergy, Mild, 06/02/24) INCLUDING TAPE, BROWN AND CLEAR TAPE Procaine (Verified Allergy, Unknown, 03/12/14) Home Meds Active Scripts Lidocaine (LIDODERM 5% TOPICAL PATCH) 1 Patch Ph, 1 PATCH TOP DAILY for 30 Days, #30 PATCH 0 Refills Prov:MIAN ROMO WOOL SACKER 06/02/24 Polyethylene Glycol 3350 (Miralax) 17 Gm Pow, 17 GM PO DAILY for 15 Days, #15 POW Prov:TED HUSSEIN Kim WOOL SACKER 05/03/24 Albuterol Sulfate (Albuterol Sulfate Hfa) 108 Mcg/Act Aer, 108 MCG IN BID PRN for 10 Days, #1 AER 0 Refills Prov:LILI LUNSFORD Rachell DO 12/01/22 Reported Medications Docusate Sodium (Docusate Sodium) 100 Mg Cap, 1 CAP PO BID for 30 Days, #60 07/03/24 Simvastatin (Simvastatin) 20 Mg Tab, 1 TAB PO DAILY for 90 Days, #90 07/03/24 Hydrocodone-Acetaminophen (Hydrocodone Bitartrate/AC 10-325 mg) 1 Tab Tab, 1 TAB PO Q6HR PRN for CHRONIC PAIN for 30 Days, #120 07/03/24 Meloxicam (Meloxicam) 15 Mg Tab, 1 TAB PO DAILY for 30 Days, #30 07/03/24 Potassium Chloride (Potassium Chloride ER) 10 Meq Tab, 1 TAB PO BID for 90 Days, #180 07/03/24 Baclofen (Baclofen) 20 Mg Tab, 1 TAB PO BID for 90 Days, #180 07/03/24 Paroxetine Hydrochloride (Paroxetine Hydrochloride) 20 Mg Tab, 1 TAB PO DAILY for 90 Days, #90 05/01/24 Tirzepatide (Mounjaro) 7.5 Mg/0.5 Ml Inj, 7.5 MG SC QWEEKLY for 28 Days, #2 10/18/23 Sitagliptin Phosphate (Januvia) 100 Mg Tab, 1 TAB PO DAILY 10/18/23 Clopidogrel Bisulfate (CLOPIDOGREL) 75 Mg Tab, 1 TAB PO DAILY 10/18/23 Furosemide (Furosemide) 40 Mg Tab, 1 TAB PO BID 10/18/23 Atorvastatin Calcium (ATORVASTATIN CALCIUM) 20 Mg Tab, 1 TAB PO DAILY 10/17/23 Cholecalciferol (Vitamin D-3 Super Strengt) 2,000 Unit Tab, 1 TAB PO DAILY 10/17/23 Gabapentin (Gabapentin) 300 Mg Cap, 1 CAP PO Q8HR for NEUROPATHIC PAIN for 30 Days, #90 10/17/23 Aspirin (Aspirin Low Dose) 81 Mg Tab, 1 TAB PO DAILY 10/17/23 Balsalazide Disodium (Balsalazide Disodium) 750 Mg Cap, 3 CAP PO BID for 30 Days, #180 10/17/23 Current Medications Current Medications Medications (Trade) Dose Ordered Sig/Damon Route PRN Reason Start Time Stop Time Status Last Admin Diagnostic Test (Pha) (Accu-Chek Comfort Curve T) 1 strip ACHS 07/03/24 17:00 07/03/24 22:12 Insulin Human Regular (InsuLIN R) ACHS SC 07/03/24 17:00 07/03/24 22:28 Dextrose 50 ml UD PRN IV Blood Sugar LESS THAN 60 07/03/24 12:45 Fentanyl Citrate 250 ml @ 2.5 mls/hr Q24H IV 07/03/24 14:45 07/03/24 14:45 Norepinephrine Bitartrate 250 ml @ 3.75 mls/hr Q24H IV 07/03/24 14:45 Midazolam HCl 50 ml @ 1 mls/hr Q24H IV 07/03/24 16:30 Dexmedetomidine HCl 400 mcg/ Dextrose 100 ml @ 3.94 mls/hr Q24H IV 07/03/24 18:30 Vital Signs Vital Signs Date Time Temp Pulse Resp B/P (MAP) Pulse Ox O2 Delivery O2 Flow Rate FiO2 07/03/24 22:36 85 20 111/77 (88) 96 40 07/03/24 20:00 99.4 99.4 07/03/24 17:32 Mechanical Ventilator+ 07/03/24 10:46 0 Physical Exam Gen.: Patient lying in bed in medical ICU. Sedated, intubated on mechanical ventilator. Head: Normocephalic, atraumatic. Eyes: PERRLA. Ears: Normal external anatomy. Throat: Endotracheal tube and orogastric tube in place. Neck: Supple, trachea midline. Chest: Transmitted breath sounds bilaterally. Decreased air entry bilaterally. Positive wheezing. Bibasilar crackles. Cardiovascular: Positive S1, positive S2. Regular rate and rhythm. Abdomen: Positive bowel sounds in all 4 quadrants. Soft, nontender, nondistended. : [place] in place. Normal external genitalia. Rectal: Deferred. Skin: Warm, dry. Intact. Extremities: 2+ radial pulses bilaterally. No lower extremity edema. Neuro: Sedated. Labs/Diagnostic Data Labs Test 07/03/24 22:09 07/02/24 10:22 07/02/24 06:40 07/01/24 23:37 Range/Units POC Glucose 213 H 70-106 mg/dl Urine Color Light-yellow Yellow Urine Clarity Turbid H Clear Urine pH 5.5 5.0-9.0 Urine Specific [place] 1.026 1.001-1.035 Urine Protein Trace H Negative Urine Ketones 1+ H Negative Urine Blood Negative Negative /uL Urine Nitrite Negative Negative Urine Bilirubin Negative Negative Urine Urobilinogen Normal Negative mg/dL Urine Leukocyte Esterase 1+ Negative /uL Urine RBC 2 0 - 4 /hpf Urine Microscopic WBC 9 H 0-5 /HPF Urine Squamous Epithelial Cells Few <5 /hpf Urine Bacteria None seen None Seen /hpf Urine Mucus Few None Seen Urine Yeast (Budding) Occasional None Seen /hpf Urine Glucose Normal Normal mg/dL Urine Opiates Screen Pos NEGATIVE Urine Fentanyl Screen Neg NEGATIVE Urine Barbiturates Screen Neg NEGATIVE Urine Phencyclidine Screen Neg NEGATIVE Urine Amphetamines Screen Neg NEGATIVE Urine Benzodiazepines Screen Neg NEGATIVE Urine Cocaine Screen Neg NEGATIVE Urine Cannabinoids Screen Neg NEGATIVE White Blood Count 7.1 4.4-10.8 10^3/uL Red Blood Count 4.81 4.0-5.20 10^6/uL Hemoglobin 14.0 12.2-16.2 g/dL Hematocrit 42.4 36.0-46.0 % Mean Corpuscular Volume 88.1 80.0-100.0 fL Mean Corpuscular Hemoglobin 29.1 28.0-32.0 pg Mean Corpuscular Hemoglobin Concent 33.0 32.0-36.0 g/dL Red Cell Distribution Width 15.0 H 11.8-14.3 % Platelet Count 190 140-450 10^3/uL Mean Platelet Volume 8.9 6.9-10.8 fL Neutrophils (%) (Auto) 85.7 H 37.0-80.0 % Lymphocytes (%) (Auto) 13.7 10.0-50.0 % Monocytes (%) (Auto) 0.3 0.0-12.0 % Eosinophils (%) (Auto) 0.0 0.0-7.0 % Basophils (%) (Auto) 0.3 0.0-2.0 % Neutrophils # (Auto) 6.1 1.6-8.6 10 ^3/uL Lymphocytes # (Auto) 1.0 0.4-5.4 10 ^3/uL Monocytes # (Auto) 0 0-1.3 10 ^3/uL Eosinophils # (Auto) 0 0-0.8 10 ^3/uL Basophils # (Auto) 0 0-0.2 10 ^3/uL Nucleated Red Blood Cells 0.1 % Erythrocyte Sedimentation Rate 8 0-20 mm/hr Sodium Level 141 136-145 mmol/L Potassium Level 4.2 3.5-5.1 mmol/L Chloride Level 108 H 98-107 mmol/L Carbon Dioxide Level 22 20-31 mmol/L Anion Gap 11 5-15 Blood Urea Nitrogen 12 9-23 mg/dL Creatinine 0.86 0.550-1.02 mg/dL Glomerular Filtration Rate Calc 77 >90 mL/min BUN/Creatinine Ratio 14.0 10.0-20.0 Serum Glucose 185 H 74-106 mg/dL Calcium Level 9.6 8.7-10.4 mg/dL C-Reactive Protein High Sensitivity 0.45 <1.0 mg/dL Lactic Acid Level 1.7 0.4-2.0 mmol/L Test 07/01/24 16:56 07/01/24 16:43 Range/Units Hemoglobin A1c 6.9 H <5.7 % A1C Triglycerides Level 164 H < 150 mg/dL Cholesterol Level 158 < 200 mg/dL LDL Cholesterol 102 H < 100 mg/dL HDL Cholesterol 36 L 40-59 mg/dL Thyroid Stimulating Hormone (TSH) 1.91 0.55-4.78 uIU/mL Total Bilirubin 0.5 0.2-1.0 mg/dL Aspartate Amino Transferase (AST) 12 L 13-40 U/L Alanine Aminotransferase (ALT) < 9 7-40 U/L Alkaline Phosphatase 103 46-116 U/L Total Protein 7.0 5.7-8.2 g/dL Albumin 4.8 3.2-4.8 g/dL Lipase 26 12-53 U/L Microbiology Date/Time Source Procedure Growth Status 07/02/24 10:22 Voided Urine Urine Culture - Preliminary Resulted Assessment Impression: Respiratory distress Rule out foreign body Asthma exacerbation Obesity BMI 33.1 Wheezing Urinary tract infection On mechanical ventilator S/p colectomy Acute on chronic ulcerative colitis Plan: Patient was intubated due to possible foreign body in lung vs. esophagus No foreign body noted within the oropharynx during intubation. Obtain consent for bronchoscopy to rule out foreign body. S/p intubation, on mechanical ventilator. Vent settings; AC mode, RR 18, VT 450, PEEP 5, FiO2 40% Titrate FIO2 to keep O2 saturation above 90%. Sedate for ventilator synchrony - Propofol, Fentanyl S/p bronchoscopy today, no evidence of foreign body in the lung. Scant bilateral lower lobe secretions were noted. Patient tolerated the procedure well. Patient was given Decadron 10 mg IVP. Continue antibiotics. IV steroids Pressors as necessary for hemodynamic support Titrate to keep mean arterial pressure greater than 65 mmHg. Pain control Avoid oversedation Follow up Surgery recs. IV fluids w/ LR at 75 ml/hr. Monitor renal function Monitor electrolytes. Supplement as necessary. Monitor ins and outs. Diet and lifestyle modifications for weight reduction Obesity - complicates all care DVT prophylaxis - Lovenox SC. Prognosis: Poor given patient's multiple co-morbidities. Condition: Critical Rest of plan per hospitalist and other consultants. A total of 35 minutes of critical care time was spent reviewing the patient record, examining the patient, making a diagnostic and therapeutic plan, discussing this plan with the medical personnel, following up on diagnostic studies and following the patient for clinical stability excluding any and all procedures. At least 50% of this time was spent in direct, [id number] contact. Thank you, Dr. Rincon for allowing me to participate in this patient's care. Further recommendations will depend on the patient's clinical course. Please do not hesitate to contact me if you have any questions or concerns. This medical document was created using an electronic medical record system with [employer] dictation system. Although these documentations are being carefully reviewed, there may still be some phonetic and typographical changes. The errors are purely typographical, due to imperfection on the software program, and do not reflect any compromise in the patient's medical care. Plan discussed with: Other (RN/ Jhajj) LUISA CHILDERS MD Jul 03, 2024 23:13
[2024-07-04] VITALS (79 sets, daily range): BP systolic 75–140; BP diastolic 28–101; PULSE 45–96; RESP 8–32; TEMP 97.8–99.5; O2SAT 85–99
--- NOTE | 2024-07-04 06:01 | DVH ---
EXAM: XR Chest, 1 View CLINICAL INDICATION: INTUBATED PATIENT TECHNIQUE: Frontal view of the chest. COMPARISON: XY CHEST PORTABLE on DOS: 07/03/24, XY CHEST XRAY 1 VIEW on DOS: 04/29/24, XY CHEST XRAY 1 VIEW on DOS: 02/25/24, XY CHEST PORTABLE on DOS: 11/27/23, XY CHEST PORTABLE on DOS: 11/01/23 FINDINGS: LUNGS AND PLEURAL SPACES: Pulmonary venous congestion. No consolidation. No pneumothorax. HEART: Unremarkable. No cardiomegaly. MEDIASTINUM: Unremarkable. Normal mediastinal contour. BONES/JOINTS: Unremarkable. No acute fracture. TUBES, LINES AND DEVICES: The endotracheal tube (ETT) is in satisfactory position. OTHER FINDINGS: . . IMPRESSION: Pulmonary venous congestion.
--- NOTE | 2024-07-04 15:19 | DVHPN2 ---
Progress Note - Dictate Date Seen: Jul 04, 2024 Medical Necessity Reason Pt with a Central, PICC or Fol: No Subjective No new complaints Patient is extubated on a facemask , no shortness of breath She is tolerating a diet Patient had some loose bowel movements today but there was no bleeding Last colonoscopy about a year ago and gastro group vital signs Vital Sign Date Time Temp Pulse Resp B/P (MAP) Pulse Ox O2 Delivery O2 Flow Rate FiO2 07/04/24 14:00 63 07/04/24 14:00 16 Cool Aerosol 8 35 35 07/04/24 13:19 144/117 07/04/24 12:17 94 07/04/24 12:00 98.7 98.7 Total Intake and Output 07/03/24 07/03/24 07/04/24 15:00 23:00 07:00 Intake Total 175 ml 790.0 ml 791.0 ml Output Total 200 ml Balance 175 ml 790.0 ml 591.0 ml medications Current Medications Medications Dose Ordered Sig/Damon Route Start Time Stop Time Status Last Admin Dose Admin Ondansetron HCl 4 mg Q4HP PRN IV 07/01/24 21:15 07/04/24 02:38 4 MG Enoxaparin Sodium 40 mg DAILY SC 07/02/24 10:00 07/04/24 08:24 40 MG Atorvastatin Calcium 20 mg DAILY PO 07/02/24 10:00 07/04/24 08:24 20 MG Baclofen 10 mg Q8HP PRN PO 07/01/24 21:15 Clopidogrel Bisulfate 75 mg DAILY PO 07/02/24 10:00 07/04/24 08:23 75 MG Lidocaine 1 patch DAILY TOP 07/02/24 10:00 07/04/24 08:22 1 PATCH Gabapentin 300 mg Q8H PO 07/01/24 21:15 07/04/24 12:48 300 MG Paroxetine HCl 20 mg DAILY PO 07/02/24 10:00 07/04/24 08:23 20 MG Morphine Sulfate 4 mg Q4HPRN PRN IV 07/01/24 23:15 07/04/24 12:49 4 MG Methylprednisolone Sodium Succinate 40 mg BID IV 07/02/24 10:00 07/04/24 08:23 40 MG Lactated Ringer's 1,000 ml @ 75 mls/hr [id number] IV 07/02/24 05:30 07/04/24 08:24 75 MLS/HR Albuterol 2.5 mg Q6HP PRN NEB 07/02/24 05:30 Piperacillin Sod/ Tazobactam Sod 100 ml @ 25 mls/hr Q8HR IV 07/02/24 08:00 07/04/24 13:03 25 MLS/HR Mesalamine 800 mg TID PO 07/02/24 10:15 07/04/24 14:42 800 MG Diagnostic Test (Pha) 1 strip ACHS 07/03/24 17:00 07/04/24 11:30 1 STRIP Insulin Human Regular ACHS SC 07/03/24 17:00 07/04/24 12:47 3 UNITS Dextrose 50 ml UD PRN IV 07/03/24 12:45 Fentanyl Citrate 250 ml @ 2.5 mls/hr Q24H IV 07/03/24 14:45 07/03/24 14:45 2.5 MLS/HR Norepinephrine Bitartrate 250 ml @ 3.75 mls/hr Q24H IV 07/03/24 14:45 Midazolam HCl 50 ml @ 1 mls/hr Q24H IV 07/03/24 16:30 Dexmedetomidine HCl 400 mcg/ Dextrose 100 ml @ 3.94 mls/hr Q24H IV 07/03/24 18:30 objective General Appearance: Alert, Oriented X3, Cooperative, on face mask HEENT: Atraumatic, PERRLA, EOMI, Mucous membrane moist/pink Respiratory: Clear to auscultation, Normal air movement Cardiovascular: Regular rate, Normal S1, Normal S2, No murmurs, no chest wall tenderness Abdominal: Soft obese nontender, bowel sounds present, no scars noted Extremities: No clubbing, No cyanosis, No edema, Normal pulses, No tenderness/swelling Skin: No rashes, No breakdown, No significant lesion Neuro: Normal gait, Normal speech, Strength at 5/5 X4 ext, Normal tone, Sensation intact, Cranial nerves 3-12 NL, Reflexes 2+ Psych/Mental Status: Mental status NL, Mood NL laboratory and microbiology Test 07/04/24 14:30 Range/Units Serum Glucose Pending CT ABD PELVIS IMPRESSION: 1. There is no acute process in the abdomen and pelvis. 2. Scattered colonic diverticula without evidence of acute diverticulitis. 3. Stable fibroid uterus. Problems(with codes): (1) CHEST PAIN NEC (2) Obesity (3) Intractable abdominal pain (4) Chronic ulcerative colitis Prognosis Plan Advance diet as tolerated Continue mesalamine and on IV methylprednisolone Protonix 40 mg IV daily Advance diet as tolerated I will follow up patient with you Outpatient follow up with GI Services for ongoing management of IBD Dietary Evaluation Review Comments: 1. Would change diet order to CHO 60 gm/meal, Low Fiber/Residue diet 2. Document PO intakes after each meal 3. If PO is <50% of meals consistently, consider oral nutrition supplement Expected Outcomes/Goals: Achieve adequate oral intake. Plan discussed with: Other (KARINA Nurse) ISRAEL FARAH MD Jul 04, 2024 15:19
[2024-07-04 15:25] LABS: Basophils # (auto) 0 10 ^3/uL (0-0.2); Basophils % (auto) 0.1 % (0.0-2.0); Eosinophils # (auto) 0 10 ^3/uL (0-0.8); Eosinophils % (auto) 0.1 % (0.0-7.0); Hematocrit 41.1 % (36.0-46.0); Hemoglobin 13.4 g/dL (12.2-16.2); Lymphocytes # (auto) 0.6 10 ^3/uL (0.4-5.4); Lymphocytes % (auto) 4.8 % (10.0-50.0); Mean Corpuscular Hemoglobin 29.3 pg (28.0-32.0); Mean Corpuscular Hgb Conc. 32.7 g/dL (32.0-36.0); Mean Corpuscular Volume 89.6 fL (80.0-100.0); Monocytes # (auto) 0.3 10 ^3/uL (0-1.3); Monocytes % (auto) 2.6 % (0.0-12.0); Neutrophils # (auto) 11.9 10 ^3/uL (1.6-8.6); Neutrophils % (auto) 92.4 % (37.0-80.0); Nucleated Red Blood Cells % 0.1 %; Platelet Count (auto) 172 10^3/uL (140-450); Red Blood Cells 4.58 10^6/uL (4.0-5.20); Red Cell Distribution Width 15.4 % (11.8-14.3); White Blood Cell 12.9 10^3/uL (4.4-10.8)
[2024-07-04 15:29] LABS: Potassium 3.7 mmol/L (3.5-5.1); Sodium 143 mmol/L (136-145)
[2024-07-04 15:30] LABS: Anion Gap 6 (5-15); Calcium 8.9 mg/dL (8.7-10.4); Carbon Dioxide 26 mmol/L (20-31)
[2024-07-04 15:36] LABS: BUN/Creatinine Ratio 18.4 (10.0-20.0); Blood Urea Nitrogen 18 mg/dL (9-23)
[2024-07-04 15:39] LABS: Chloride 111 mmol/L (98-107); Glucose 185 mg/dL (74-106)
--- NOTE | 2024-07-04 18:43 | DVHPN2 ---
Progress Note Date Seen: Jul 04, 2024 Medical Necessity Reason Pt with a Central, PICC or Fol: No Subjective Review of Systems: Not Done (Patient is intubated) Objective vital signs Vital Sign Date Time Temp Pulse Resp B/P (MAP) Pulse Ox O2 Delivery O2 Flow Rate FiO2 07/04/24 17:42 69 14 103/63 07/04/24 17:15 96 07/04/24 16:00 Cool Aerosol 8 35 35 07/04/24 16:00 98.5 98.5 Total Intake and Output 07/03/24 07/03/24 07/04/24 15:00 23:00 07:00 Intake Total 175 ml 790.0 ml 791.0 ml Output Total 200 ml Balance 175 ml 790.0 ml 591.0 ml medications Current Medications Medications Dose Ordered Sig/Damon Route Start Time Stop Time Status Last Admin Dose Admin Ondansetron HCl 4 mg Q4HP PRN IV 07/01/24 21:15 07/04/24 02:38 4 MG Enoxaparin Sodium 40 mg DAILY SC 07/02/24 10:00 07/04/24 08:24 40 MG Atorvastatin Calcium 20 mg DAILY PO 07/02/24 10:00 07/04/24 08:24 20 MG Baclofen 10 mg Q8HP PRN PO 07/01/24 21:15 Clopidogrel Bisulfate 75 mg DAILY PO 07/02/24 10:00 07/04/24 08:23 75 MG Lidocaine 1 patch DAILY TOP 07/02/24 10:00 07/04/24 08:22 1 PATCH Gabapentin 300 mg Q8H PO 07/01/24 21:15 07/04/24 12:48 300 MG Paroxetine HCl 20 mg DAILY PO 07/02/24 10:00 07/04/24 08:23 20 MG Morphine Sulfate 4 mg Q4HPRN PRN IV 07/01/24 23:15 07/04/24 17:42 4 MG Methylprednisolone Sodium Succinate 40 mg BID IV 07/02/24 10:00 07/04/24 08:23 40 MG Lactated Ringer's 1,000 ml @ 75 mls/hr [id number] IV 07/02/24 05:30 07/04/24 08:24 75 MLS/HR Albuterol 2.5 mg Q6HP PRN NEB 07/02/24 05:30 Piperacillin Sod/ Tazobactam Sod 100 ml @ 25 mls/hr Q8HR IV 07/02/24 08:00 07/04/24 13:03 25 MLS/HR Mesalamine 800 mg TID PO 07/02/24 10:15 07/04/24 14:42 800 MG Diagnostic Test (Pha) 1 strip ACHS 07/03/24 17:00 07/04/24 17:00 1 STRIP Insulin Human Regular ACHS SC 07/03/24 17:00 07/04/24 17:49 3 UNITS Dextrose 50 ml UD PRN IV 07/03/24 12:45 Fentanyl Citrate 250 ml @ 2.5 mls/hr Q24H IV 07/03/24 14:45 07/03/24 14:45 2.5 MLS/HR Norepinephrine Bitartrate 250 ml @ 3.75 mls/hr Q24H IV 07/03/24 14:45 Midazolam HCl 50 ml @ 1 mls/hr Q24H IV 07/03/24 16:30 Dexmedetomidine HCl 400 mcg/ Dextrose 100 ml @ 3.94 mls/hr Q24H IV 07/03/24 18:30 Pantoprazole Sodium 40 mg DAILY IV 07/05/24 10:00 Examination: GENERAL:Normal, LUNGS:Normal, CVS:Normal, ABDOMEN:Normal, SKIN:Normal, NEURO:Normal laboratory and microbiology Laboratory Tests 07/04/24 14:30 Test 07/04/24 14:30 Range/Units Serum Glucose 185 H 74-106 mg/dL Microbiology Date/Time Source Procedure Growth Status 07/03/24 16:00 Sputum Gram Stain - Final Resulted 07/03/24 16:00 Sputum Respiratory Culture - Preliminary Resulted 07/02/24 10:22 Voided Urine Urine Culture - Final Complete Labs and/or images reviewed: Labs reviewed by me, Image(s) reviewed by me Problem List/Assessment/Plan Problem List/Assessment/Plan 1. Recurrent UTI Monitor, send UA, IV abx 2. Acute on chronic ulcerative colitis Monitor, IV abx 3. Mixed hyperlipidemia Monitor, medications 4. DM II with hyperglycemia Monitor, insulin ss 5. S/p colectomy Monitor 6. Hx CVA with residual weakness Monitor, restart anticoagulation 7. CAD Monitor Assessment/Plan Subjective: Patient is awake and alert. Objective: Diet was advanced yesterday; however, patient choked on her food and has a large food bolus in her throat. Patient had bronchoscopy yesterday, patient was s uccessfully extubated today. Patient was subsequently admitted for ulcerative colitis, GI was consulted Plan: Continue current treatment. Continue insulin sliding scale for diabetes. Monitor for airway aspiration, advance diet as tolerated Plan discussed with: Patient My Orders My Orders Orders - TAMI ROOT Procedure Category Date Status Time * Gi Dvh Mortgage Lender CONS 07/04/24 Transmitted 12:15 Transfer Orders XFER 07/04/24 Transmitted 17:52 Clear Liq Diet DIET 07/04/24 Transmitted Dinner Dietary Evaluation Review Comments: 1. Would change diet order to CHO 60 gm/meal, Low Fiber/Residue diet 2. Document PO intakes after each meal 3. If PO is <50% of meals consistently, consider oral nutrition supplement Expected Outcomes/Goals: Achieve adequate oral intake. Date of Service: Jul 04, 2024 Billing Provider: CAL MARTINO MD Common Visit Codes: [id number] INP/OBS CARE (MOD) TAMI ROOT Jul 04, 2024 18:43
[2024-07-04] MEDS: ATROPINE SULF 1 MG/10ml SYR IV ONE (19:15)
[2024-07-04] MEDS ORDERED: ATROPINE SULF 1 MG/10ml SYR IV PRN (19:45)
[2024-07-04] MEDS: ISOPROTERENOL HCL INJECTION 1 MG in D5W 5% 250 ML IV SCH (21:57)
[2024-07-04 22:08] LABS: Potassium 4.2 mmol/L (3.5-5.1); Sodium 143 mmol/L (136-145)
[2024-07-04 22:09] LABS: Anion Gap 8 (5-15); Carbon Dioxide 27 mmol/L (20-31)
[2024-07-04 22:10] LABS: Calcium 8.7 mg/dL (8.7-10.4)
[2024-07-04 22:15] LABS: BUN/Creatinine Ratio 20.9 (10.0-20.0); Blood Urea Nitrogen 19 mg/dL (9-23); Chloride 108 mmol/L (98-107); Glucose 139 mg/dL (74-106)
[2024-07-04] MEDS: ASPirin 325 MG TAB PO ONE (23:27)
[2024-07-04] MEDS: ENOXAPARIN SOD 80 MG/0.8ML SYRINGE SC SCH (23:28)
--- NOTE | 2024-07-04 23:38 | DVHPN2 ---
Progress Note - Dictate Date Seen: Jul 04, 2024 Medical Necessity Reason Pt with a Central, PICC or Fol: Yes The following are medically ne: Cowart Catheter Reason for cowart catheter: Strict I&O Subjective Patient seen and examined at bedside. S/p extubation, currently on supplemental oxygen Overnight events reviewed. vital signs Vital Sign Date Time Temp Pulse Resp B/P (MAP) Pulse Ox O2 Delivery O2 Flow Rate FiO2 07/04/24 21:57 96/57 07/04/24 19:04 47 12 07/04/24 19:00 97 07/04/24 18:47 Nasal Cannula 2.0 07/04/24 18:47 28 07/04/24 16:00 98.5 98.5 Total Intake and Output 07/03/24 07/03/24 07/04/24 15:00 23:00 07:00 Intake Total 175 ml 790.0 ml 791.0 ml Output Total 200 ml Balance 175 ml 790.0 ml 591.0 ml medications Current Medications Medications Dose Ordered Sig/Damon Route Start Time Stop Time Status Last Admin Dose Admin Ondansetron HCl 4 mg Q4HP PRN IV 07/01/24 21:15 07/04/24 02:38 4 MG Atorvastatin Calcium 20 mg DAILY PO 07/02/24 10:00 07/04/24 08:24 20 MG Baclofen 10 mg Q8HP PRN PO 07/01/24 21:15 Clopidogrel Bisulfate 75 mg DAILY PO 07/02/24 10:00 07/04/24 08:23 75 MG Lidocaine 1 patch DAILY TOP 07/02/24 10:00 07/04/24 08:22 1 PATCH Gabapentin 300 mg Q8H PO 07/01/24 21:15 07/04/24 21:57 300 MG Paroxetine HCl 20 mg DAILY PO 07/02/24 10:00 07/04/24 08:23 20 MG Morphine Sulfate 4 mg Q4HPRN PRN IV 07/01/24 23:15 07/04/24 17:42 4 MG Methylprednisolone Sodium Succinate 40 mg BID IV 07/02/24 10:00 07/04/24 21:58 40 MG Lactated Ringer's 1,000 ml @ 75 mls/hr [id number] IV 07/02/24 05:30 07/04/24 08:24 75 MLS/HR Albuterol 2.5 mg Q6HP PRN NEB 07/02/24 05:30 Piperacillin Sod/ Tazobactam Sod 100 ml @ 25 mls/hr Q8HR IV 07/02/24 08:00 07/04/24 21:59 25 MLS/HR Mesalamine 800 mg TID PO 07/02/24 10:15 07/04/24 21:58 800 MG Diagnostic Test (Pha) 1 strip ACHS 07/03/24 17:00 07/04/24 17:00 1 STRIP Insulin Human Regular ACHS SC 07/03/24 17:00 07/04/24 17:49 3 UNITS Dextrose 50 ml UD PRN IV 07/03/24 12:45 Norepinephrine Bitartrate 250 ml @ 3.75 mls/hr Q24H IV 07/03/24 14:45 Pantoprazole Sodium 40 mg DAILY IV 07/05/24 10:00 Atropine Sulfate 0.5 mg Q4HPRN PRN IV 07/04/24 19:45 Isoproterenol HCl 1 mg/Dextrose 255 ml @ 30.6 mls/hr Q8H20M IV 07/04/24 20:45 07/05/24 10:00 07/04/24 21:57 30.6 MLS/HR Enoxaparin Sodium 80 mg Q12HR SC 07/04/24 23:30 07/04/24 23:28 80 MG Aspirin 81 mg DAILY PO 07/05/24 10:00 objective Gen.: Patient lying in bed in no apparent distress. On supplemental oxygen. Head: Normocephalic, atraumatic. Eyes: EOMI/PERRLA. Ears: Normal hearing. Normal anatomy. Neck/trachea: Trachea midline, supple. Nose: Normal external anatomy. Mouth: Moist mucous membranes. Chest: Decreased air entry bilaterally. No wheezing or rhonchi. Cardiovascular: Positive S1, positive S2. Regular rate and rhythm. Abdomen: Positive bowel sounds in all 4 quadrants. Soft, non-tender, non- distended. : Deferred. Rectal: Deferred. Skin: Warm, dry. Intact. Extremities: 2+ radial pulses bilaterally. No lower extremity edema. Neuro: Awake, alert, oriented x3. No gross motor or sensory deficits. Cranial nerves II through XII intact. Gait not assessed. laboratory and microbiology Laboratory Tests 07/04/24 21:44 07/04/24 14:30 Test 07/04/24 21:44 Range/Units Serum Glucose 139 H 74-106 mg/dL Assessment/Plan Impression: Respiratory distress, resolved Ruled out foreign body Asthma exacerbation Obesity Wheezing Urinary tract infection On mechanical ventilator S/p colectomy Acute on chronic ulcerative colitis. Events: Patient tolerated CPAP today and was extubated uneventfully Currently on supplemental oxygen, 2 LPM NC Taper O2 as tolerated Continue antibiotics IV steroids Accu-Cheks, ISS IV fluids with LR at 75 ml/hr Protonix for GI prophylaxis Therapeutic Lovenox for DVT prophylaxis Labs and imaging reviewed. Rest of plan as noted below. Plan: S/p extubation Supplemental oxygen Titrate to keep O2 sats above 92%. S/p bronchoscopy on 07/03, no evidence of foreign body in the lung. Scant bilateral lower lobe secretions were noted. Patient tolerated the procedure well. Continue antibiotics. IV steroids Pressors as necessary for hemodynamic support Titrate to keep mean arterial pressure greater than 65 mmHg. Pain control Avoid oversedation Surgery recs appreciated. IV fluids w/ LR at 75 ml/hr. Monitor renal function Monitor electrolytes. Supplement as necessary. Monitor ins and outs. Diet and lifestyle modifications for weight reduction Obesity - complicates all care DVT prophylaxis - Lovenox SC. Prognosis: Poor given patient's multiple co-morbidities. Condition: Critical Rest of plan per hospitalist and other consultants. A total of 35 minutes of critical care time was spent reviewing the patient record, examining the patient, making a diagnostic and therapeutic plan, discussing this plan with the medical personnel, following up on diagnostic studies and following the patient for clinical stability excluding any and all procedures. At least 50% of this time was spent in direct, [id number] contact. Thank you, Dr. Hylton, for allowing me to participate in this patient's care. Further recommendations will depend on the patient's clinical course. Please do not hesitate to contact me if you have any questions or concerns. This medical document was created using an electronic medical record system with [employer] system. Although these documentations are being carefully reviewed, there may still be some phonetic and typographical changes. The errors are purely typographical, due to imperfection on the software program, and do not reflect any compromise in the patient's medical care. Dietary Evaluation Review Comments: 1. Would change diet order to CHO 60 gm/meal, Low Fiber/Residue diet 2. Document PO intakes after each meal 3. If PO is <50% of meals consistently, consider oral nutrition supplement Expected Outcomes/Goals: Achieve adequate oral intake. Plan discussed with: Other (ISRAEL Martin) Critical Care Time(min): 35 LUISA CHILDERS MD Jul 04, 2024 23:38
[2024-07-05] VITALS (59 sets, daily range): BP systolic 37–118; BP diastolic 14–82; PULSE 47–111; RESP 8–25; TEMP 97.7–98.8; O2SAT 88–99
[2024-07-05 03:27] LABS: Sodium 141 mmol/L (136-145)
[2024-07-05 03:28] LABS: Anion Gap 9 (5-15); Carbon Dioxide 23 mmol/L (20-31)
[2024-07-05 03:33] LABS: BUN/Creatinine Ratio 19.6 (10.0-20.0); Blood Urea Nitrogen 22 mg/dL (9-23); Calcium 8.5 mg/dL (8.7-10.4); Chloride 109 mmol/L (98-107); Glucose 277 mg/dL (74-106); Potassium 3.2 mmol/L (3.5-5.1)
[2024-07-05 04:24] LABS: Basophils # (auto) 0 10 ^3/uL (0-0.2); Basophils % (auto) 0.2 % (0.0-2.0); Eosinophils # (auto) 0 10 ^3/uL (0-0.8); Hematocrit 36.3 % (36.0-46.0); Hemoglobin 12.2 g/dL (12.2-16.2); Lymphocytes # (auto) 0.4 10 ^3/uL (0.4-5.4); Lymphocytes % (auto) 3.5 % (10.0-50.0); Mean Corpuscular Hemoglobin 29.6 pg (28.0-32.0); Mean Corpuscular Hgb Conc. 33.7 g/dL (32.0-36.0); Monocytes # (auto) 0.4 10 ^3/uL (0-1.3); Neutrophils # (auto) 11.4 10 ^3/uL (1.6-8.6); Neutrophils % (auto) 93.3 % (37.0-80.0); Platelet Count (auto) 140 10^3/uL (140-450); Red Blood Cells 4.12 10^6/uL (4.0-5.20); White Blood Cell 12.2 10^3/uL (4.4-10.8)
[2024-07-05] MEDS: PANTOPRAZOLE 40 MG/10 ML VIAL INJ IV SCH (08:42)
[2024-07-05] MEDS: ASPirin 81 mg TAB PO SCH (08:43)
[2024-07-05] MEDS: POTASSIUM EFFERVESENT TAB 25 MEQ PO ONE (10:17)
[2024-07-05] MEDS: POTASSIUM CHLORIDE 20 MEQ, LIDOCAINE 1% (LOCAL ANESTH.) 2 ML in SODIUM CHL 0.9% 100 ML IV ONE (10:18)
--- NOTE | 2024-07-05 11:04 | ECG ---
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
--- NOTE | 2024-07-05 11:04 | ECG ---
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
[2024-07-05 11:29] LABS: Lactic Acid w/Reflex 3.1 mmol/L (0.4-2.0)
--- NOTE | 2024-07-05 11:43 | DVHSR ---
APPROVED REPORT EXAM: Two-dimensional and M-mode echocardiogram with Doppler and color Doppler. Blood Pressure: 110/55 mmHg INDICATION CHF RISK FACTORS Height: 5'2, Weight: 182 DIMENSIONS LVDd3.6 (3.8-5.7cm)LA (2D)2.9 (1.9-4.0cm)Aortic Root3.1 (2.0-3.7cm) LVDs2.7 (2.5-4.0cm)LA (MM) (1.9-4.0cm)Aortic Cusp Exc1.6 (1.5-2.0cm) EF (%) 45.0 (55-70%)Rt. Atrium3.4 (1.9-4.0cm)Asc. Aorta3.0 cm IVSd1.1 (0.7-1.1cm)RV (D) (1.8-2.4cm) PWd0.7 (0.7-1.1cm) Mitral Valve MitralMitral Stenosis E wave0.86m/sMV Mean GR.mmHg A wave1.14m/sMV Peak GR.62mmHg E/A ratio0.82D MVAcm2 DECEL [id number] 1/2 [place] Aortic Valve Aortic ValveAortic Stenosis V10.98m/Yared Mean GR.3mmHg V21.08m/Yared Peak GR.5mmHg LVOT Diameter1.7 (1.8-2.4cm)Doppler AVA2.06cm2 Pulmonic Valve V20.83m/s Tricuspid Valve TR Velocity1.98m/s [id number] Other Information Quality : Technically LimitedRhythm : Technically limited study due to body habitus.patient position. Conclusion Left ventricle: Left ventricle wall is normal-sized. LVEF is around 40%. Mild diffuse hypokinesis of left ventricle was seen. Right ventricle was normal-sized with normal systolic function. Both atria were normal-sized. Aortic valve was trileaflet. There was no aortic insufficiency/stenosis. There was trace mitral/tri cuspid regurgitation. Pulmonary valve was not well visualized. IVC was dilated. Right ventricular systolic pressure was assessed at 30 mm Hg. There was no pericar dial effusion.
[2024-07-05] MEDS: BACLOFEN 10 MG TAB PO PRN (11:58)
--- NOTE | 2024-07-05 12:39 | DVHINCON2 ---
Date of service: Jul 05, 2024 History of Present Illness HPI Patient is a 59-year-old female who originally presented to the hospital on July 01, 2024 for lower abdominal pain. She also had nausea and diarrhea that time of presentation. It is of note that the patient does have history of inflammatory bowel disease (ulcerative colitis/Crohn's disease) and presentation was assessed somehow related to the inflammatory bowel disease. Since arrival, the patient was intubated at that point and later extubated. She actually had some EGD also. Cardiology was involved (on July 05, 2024) for an episode of sinus bradycardia for which patient was temporarily on Isuprel drip. She mentions that she has been experiencing some chest tightness for the past 2 days also. She denies previous chest tightness. She is known to our practice from before. She does have history of HFpEF. She is being managed in BEE/ICU. She is found to have increased troponin and has been started on aspirin/Lovenox. She does have history of CVA and carotid disease. She has had carotid endarterectomy (right side) before. There is no previous history of coronary artery disease. Nuclear stress test of December 2021 had been nonrevealing. She is kept on aspirin/Plavix as outpatient (old CVA). Home Meds Active Scripts Lidocaine (LIDODERM 5% TOPICAL PATCH) 1 Patch Ph, 1 PATCH TOP DAILY for 30 Days, #30 PATCH 0 Refills Prov:MIAN ROMO USED [employer] 06/02/24 Polyethylene Glycol 3350 (Miralax) 17 Gm Pow, 17 GM PO DAILY for 15 Days, #15 POW Prov:TED HUSSEIN [employer]ED [employer] 05/03/24 Albuterol Sulfate (Albuterol Sulfate Hfa) 108 Mcg/Act Aer, 108 MCG IN BID PRN for 10 Days, #1 AER 0 Refills Prov:LILI LUNSFORD DO 12/01/22 Reported Medications Docusate Sodium (Docusate Sodium) 100 Mg Cap, 1 CAP PO BID for 30 Days, #60 07/03/24 Simvastatin (Simvastatin) 20 Mg Tab, 1 TAB PO DAILY for 90 Days, #90 07/03/24 Hydrocodone-Acetaminophen (Hydrocodone Bitartrate/AC 10-325 mg) 1 Tab Tab, 1 TAB PO Q6HR PRN for CHRONIC PAIN for 30 Days, #120 07/03/24 Meloxicam (Meloxicam) 15 Mg Tab, 1 TAB PO DAILY for 30 Days, #30 07/03/24 Potassium Chloride (Potassium Chloride ER) 10 Meq Tab, 1 TAB PO BID for 90 Days, #180 07/03/24 Baclofen (Baclofen) 20 Mg Tab, 1 TAB PO BID for 90 Days, #180 07/03/24 Paroxetine Hydrochloride (Paroxetine Hydrochloride) 20 Mg Tab, 1 TAB PO DAILY for 90 Days, #90 05/01/24 Tirzepatide (Mounjaro) 7.5 Mg/0.5 Ml Inj, 7.5 MG SC QWEEKLY for 28 Days, #2 10/18/23 Sitagliptin Phosphate (Januvia) 100 Mg Tab, 1 TAB PO DAILY 10/18/23 Clopidogrel Bisulfate (CLOPIDOGREL) 75 Mg Tab, 1 TAB PO DAILY 10/18/23 Furosemide (Furosemide) 40 Mg Tab, 1 TAB PO BID 10/18/23 Atorvastatin Calcium (ATORVASTATIN CALCIUM) 20 Mg Tab, 1 TAB PO DAILY 10/17/23 Cholecalciferol (Vitamin D-3 Super Strengt) 2,000 Unit Tab, 1 TAB PO DAILY 10/17/23 Gabapentin (Gabapentin) 300 Mg Cap, 1 CAP PO Q8HR for NEUROPATHIC PAIN for 30 Days, #90 10/17/23 Aspirin (Aspirin Low Dose) 81 Mg Tab, 1 TAB PO DAILY 10/17/23 Balsalazide Disodium (Balsalazide Disodium) 750 Mg Cap, 3 CAP PO BID for 30 Days, #180 10/17/23 Past Medical History Others Past medical history includes diabetes mellitus, 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 She has had kidney stones/hydronephrosis/hydroureter before. Uses a walker for ambulation (secondary to old CVA). Family History History of breast cancer/liver cancer and diabetes mellitus in the family Patient Family History: FH: breast cancer G8 SISTER FH: cancer FH: liver cancer G8 MOTHER, , Cause: Liver cancer Family history: Alzheimer's disease G8 MOTHER, , Cause: Liver cancer, Onset:Unknown Family history: Cardiovascular disease G8 FATHER, , Cause: CHF (congestive heart failure), Onset:Unknown Family history: Diabetes mellitus G8 BROTHER, Onset:Unknown Thyroid disease 19 CHILD Thyroid disease 19 CHILD Smoker: No Hx (Negative) Alocohol: None Drugs: None Lives with: With family Review of Systems Constitutional: Weakness Ears, Nose, & Throat: No symptom reported Eyes: No symptom reported Pulmonary/Respiratory: Dyspnea, Pleuritic Chest Pain Cardiovascular: Chest Pain, Lt Headedness Gastrointestinal: Nausea, Vomiting, Abdominal Pain, Diarrhea Genitourinary: Dysuria All Other Systems 14 point review of system was performed. Relevant findings as per above and as per HPI. Otherwise negative. H&P Exam Vital Signs Vital Signs Date Time Temp Pulse Resp B/P (MAP) Pulse Ox O2 Delivery O2 Flow Rate FiO2 07/05/24 11:58 104/66 07/05/24 09:32 18 Nasal Cannula* 3 32 07/05/24 09:32 85 07/05/24 08:15 96 07/05/24 08:00 98.8 98.8 General Appeara: Well developed, Mild distress, Obese Head Exam: Normal inspection Eye Exam: bilateral eye PERRL Mouth: Normal Inspection Pulmonary/Respiratory: Lungs clear Cardiovascular/Chest: Regular rate, Systolic murmur Peripheral Pulses: 2+ carotid (R), 2+ carotid (L), 2+ femoral (R), 2+ femoral (L), 2+ Radial (R), 2+ Radial (L) Abdominal Exam: Normal bowel sounds, Soft, Other (Lower abdominal tenderness is elicited. There is no rebound) Neuro/Mental St: Alert, Oriented Appearance: Appropriate appearance Eye contact/ Speech: Cooperative Labs/Xrays Labs Test 07/05/24 10:54 07/05/24 10:22 07/05/24 05:42 07/05/24 04:07 Range/Units Lactic Acid Level 3.1 *H 0.4-2.0 mmol/L Troponin I High Sensitivity 1247 *H </=34 ng/L POC Glucose 210 H 70-106 mg/dl B-Type Natriuretic Peptide 492.56 0-100 pg/mL White Blood Count 12.2 H 4.4-10.8 10^3/uL Red Blood Count 4.12 4.0-5.20 10^6/uL Hemoglobin 12.2 12.2-16.2 g/dL Hematocrit 36.3 # 36.0-46.0 % Mean Corpuscular Volume 88.0 80.0-100.0 fL Mean Corpuscular Hemoglobin 29.6 28.0-32.0 pg Mean Corpuscular Hemoglobin Concent 33.7 32.0-36.0 g/dL Red Cell Distribution Width 15.0 H 11.8-14.3 % Platelet Count 140 140-450 10^3/uL Mean Platelet Volume 9.1 6.9-10.8 fL Neutrophils (%) (Auto) 93.3 H 37.0-80.0 % Lymphocytes (%) (Auto) 3.5 L 10.0-50.0 % Monocytes (%) (Auto) 3.0 0.0-12.0 % Eosinophils (%) (Auto) 0.0 0.0-7.0 % Basophils (%) (Auto) 0.2 0.0-2.0 % Neutrophils # (Auto) 11.4 H 1.6-8.6 10 ^3/uL Lymphocytes # (Auto) 0.4 0.4-5.4 10 ^3/uL Monocytes # (Auto) 0.4 0-1.3 10 ^3/uL Eosinophils # (Auto) 0 0-0.8 10 ^3/uL Basophils # (Auto) 0 0-0.2 10 ^3/uL Nucleated Red Blood Cells 0.0 % Test 07/05/24 02:56 07/04/24 23:04 07/04/24 11:20 07/04/24 10:41 Range/Units Sodium Level 141 136-145 mmol/L Potassium Level 3.2 L 3.5-5.1 mmol/L Chloride Level 109 H 98-107 mmol/L Carbon Dioxide Level 23 20-31 mmol/L Anion Gap 9 5-15 Blood Urea Nitrogen 22 9-23 mg/dL Creatinine 1.12 H 0.550-1.02 mg/dL Glomerular Filtration Rate Calc 56 >90 mL/min BUN/Creatinine Ratio 19.6 10.0-20.0 Serum Glucose 277 H 74-106 mg/dL Calcium Level 8.5 L 8.7-10.4 mg/dL D-Dimer, Quantitative 0.36 0.0-0.49 mg/L FEU Blood Gas Specimen Type Arterial Blood Gas Sample Site Right brachial Blood Gas Patient Temperature 37.0 Arterial Blood Date Drawn [id number] Arterial Blood pH 7.539 H 7.350-7.450 Arterial Blood Partial Pressure CO2 26.7 L 32.0-45.0 mmHg Arterial Blood Partial Pressure O2 84.5 83.0-108.0 mmHg Arterial Blood HCO3 22.3 21.0-28.0 mmol/L Arterial Blood Oxygen Saturation 96.7 94.0-98.0 % Arterial Blood Base Excess 1.0 -2.0-3.0 mmol/L Arterial Blood Oxyhemoglobin 96.1 94.0-98.0 % Arterial Blood Carboxyhemoglobin 0.2 L 0.5-1.5 % Arterial Blood Methemoglobin 0.4 0.0-1.5 % Colby Test N/a Blood Gas Total Hemoglobin 13.70 12.0-16.0 g/dL Blood Gas Modality Vent - cpap FiO2 % 30.0 Blood Gas Pressure Support 8 Blood Gas PEEP or CPAP 5.0 Stool Occult Blood Negative Negative Stool Occult Blood Sample #3 Negative Stool for White Cells None seen Test 07/02/24 10:22 07/02/24 06:40 07/01/24 16:56 07/01/24 16:43 Range/Units Urine Color Light-yellow Yellow Urine Clarity Turbid H Clear Urine pH 5.5 5.0-9.0 Urine Specific Aston 1.026 1.001-1.035 Urine Protein Trace H Negative Urine Ketones 1+ H Negative Urine Blood Negative Negative /uL Urine Nitrite Negative Negative Urine Bilirubin Negative Negative Urine Urobilinogen Normal Negative mg/dL Urine Leukocyte Esterase 1+ Negative /uL Urine RBC 2 0 - 4 /hpf Urine Microscopic WBC 9 H 0-5 /HPF Urine Squamous Epithelial Cells Few <5 /hpf Urine Bacteria None seen None Seen /hpf Urine Mucus Few None Seen Urine Yeast (Budding) Occasional None Seen /hpf Urine Glucose Normal Normal mg/dL Urine Opiates Screen Pos NEGATIVE Urine Fentanyl Screen Neg NEGATIVE Urine Barbiturates Screen Neg NEGATIVE Urine Phencyclidine Screen Neg NEGATIVE Urine Amphetamines Screen Neg NEGATIVE Urine Benzodiazepines Screen Neg NEGATIVE Urine Cocaine Screen Neg NEGATIVE Urine Cannabinoids Screen Neg NEGATIVE Erythrocyte Sedimentation Rate 8 0-20 mm/hr C-Reactive Protein High Sensitivity 0.45 <1.0 mg/dL Hemoglobin A1c 6.9 H <5.7 % A1C Triglycerides Level 164 H < 150 mg/dL Cholesterol Level 158 < 200 mg/dL LDL Cholesterol 102 H < 100 mg/dL HDL Cholesterol 36 L 40-59 mg/dL Thyroid Stimulating Hormone (TSH) 1.91 0.55-4.78 uIU/mL Total Bilirubin 0.5 0.2-1.0 mg/dL Aspartate Amino Transferase (AST) 12 L 13-40 U/L Alanine Aminotransferase (ALT) < 9 7-40 U/L Alkaline Phosphatase 103 46-116 U/L Total Protein 7.0 5.7-8.2 g/dL Albumin 4.8 3.2-4.8 g/dL Lipase 26 12-53 U/L Microbiology Date/Time Source Procedure Growth Status 07/04/24 10:41 Stool Stool Culture - Preliminary Resulted 07/04/24 10:41 Stool Shiga Toxin I & II Pending Resulted 07/03/24 16:00 Sputum Gram Stain - Final Resulted 07/03/24 16:00 Sputum Respiratory Culture - Preliminary Resulted 07/02/24 10:22 Voided Urine Urine Culture - Final Complete Assessment/Plan Plan Patient is a 59-year-old female who originally presented to the hospital on July 01, 2024 for lower abdominal pain. She also had nausea and diarrhea that time of presentation. It is of note that the patient does have history of inflammatory bowel disease (ulcerative colitis/Crohn's disease) and presentation was assessed somehow related to the inflammatory bowel disease. Since arrival, the patient was intubated at that point and later extubated. She actually had some EGD also. Cardiology was involved (on July 05, 2024) for an episode of sinus bradycardia for which patient was temporarily on Isuprel drip. She mentions that she has been experiencing some chest tightness for the past 2 days also. She denies previous chest tightness. She is known to our practice from before. She does have history of HFpEF. She is being managed in BEE/ICU. She is found to have increased troponin and has been started on aspirin/Lovenox. She does have history of CVA and carotid disease. She has had carotid endarterectomy (right side) before. There is no previous history of coronary artery disease. Nuclear stress test of December 2021 had been nonrevealing. She is kept on aspirin/Plavix as outpatient (old CVA). Not in acute distress. No JVD. Mucosa is pink and wet. No carotid bruit. Lungs are clear to auscultation. Not using accessory muscles of breathing. Cardiac: Regular, no thrills/gallop. Abdomen is soft. Lower abdominal tenderness can be elicited. There is no rebound. Bowel sound is positive There was no gross mass/hepatomegaly. Extremities do not reveal edema. Dorsalis pedis is 2+ bilateral. Left-sided hemiparesis can somehow be observed. 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 She has had kidney stones/hydronephrosis/hydroureter before. Uses a walker for ambulation (secondary to old CVA). Echocardiogram of December 16, 2022 (performed in [facility]) revealed ejection fraction of 60%, mild TR and right ventricular systolic pressure of 27 mm Hg. Echocardiogram of October 18, 2023 reported ejection fraction 55-60%, mild MR/TR and right ventricular systolic pressure of 25 mm Echocardiogram of May 05, 2024 revealed ejection fraction of 50-55%, normal diastolic, trace MR/TR and right ventricular systolic pressure of 28 mm Hg Nuclear stress test of January 03, 2022 (performed as outpatient) revealed ejection fraction of 80% and no evidence for ischemia/scar. WBC: 9.1 - 7.1 - 12.9 - 12.2 D-dimer: 0.36 (within normal limits) Creatinine: 1.12 - 0.86 - 0.98 - 0.91 - 1.12 Potassium: 4.0 - 4.2 - 3.7 - 4.2 - 3.2 TSH: 1.91 BNP: 638.05 - 492.56 Troponin (high sensitive): 1049 - 1105 - 1360 - 1283 Urine culture was positive for Gram-positive annika Urine toxicology was positive for opiates Chest x-ray reported: IMPRESSION: 1. Endotracheal tube 2.7 cm above the dante. 2. Enteric tube in the stomach 3. Bibasilar areas of atelectasis or infiltrate. Repeat chest x-ray reported: IMPRESSION: Pulmonary venous congestion. CT of the head revealed: IMPRESSION: 1. No acute intracranial abnormality. CT of the abdomen and pelvis revealed: IMPRESSION: 1. There is no acute process in the abdomen and pelvis. 2. Scattered colonic diverticula without evidence of acute diverticulitis. 3. Stable fibroid uterus. EKG reveals sinus rhythm, nonspecific ST-T changes Tele reveals sinus bradycardia and later sinus rhythm Echocardiogram reported: Left ventricle: Left ventricle wall is normal-sized. LVEF is around 40%. Mild diffuse hypokinesis of left ventricle was seen. Right ventricle was normal-sized with normal systolic function. Both atria were normal-sized. Aortic valve was trileaflet. There was no aortic insufficiency/stenosis. There was trace mitral/tricuspid regurgitation. Pulmonary valve was not well visualized. IVC was dilated. Right ventricular systolic pressure was assessed at 30 mm Hg. There was no pericardial effusion. Patient is a 59-year-old female who originally presented with abdominal pain/nausea/diarrhea. Assessment of the presentation has been acute inflammatory bowel disease. Patient was intubated and later extubated for respiratory failure. Patient did have EGD which found gastritis. Patient did have an episode of sinus bradycardia which improved on Isuprel at 1st and later resolved (could it have been secondary to significant abdominal pain/vagal induced?). Patient is found to have abnormal troponin (relatively stable and peaked at 1360) with some chest discomfort. Presentation could be considered non-STEMI. Recognizing comorbidities and the significant abdominal pain during this presentation, stress-induced cardiomyopathy can not be ruled out. Echocardiogram has revealed decrease in systolic function (diffuse hypokinesis). Ischemic workup is suggested. Abdominal pain Acute inflammatory bowel disease, exacerbation UTI, complicated Acute respiratory failure, status post intubation, extubation Systolic heart failure, acute, new finding Abnormal troponin Non-STEMI Sinus bradycardia, resolved Intractable abdominal pain History of old CVA with left hemiparesis History of Crohn disease/ulcerative colitis Morbid obesity Constipation Hyperlipidemia Status post carotid endarterectomy Diverticular disease, history of Cardiac suggestion for management: Manage in ICU/BEE Follow-up electrolytes and kidney function tests and correct abnormalities. Keep potassium above 4 and magnesium above 2 Full anticoagulation (on Lovenox) for now Aspirin Ischemic workup/cardiac catheterization, early next week (tentatively on Sunday?) Evaluation and management of abdominal pain/inflammatory bowel disease as per GI/primary team Evaluation and management of UTI as per primary team Pulmonary follow-up for recent history of acute respiratory failure Pain management as per primary team Thank you for consultation Further evaluation and management depends on the above and clinical course A total of 75 minutes was spent reviewing the patient record, examining the patient, making a diagnostic and therapeutic plan, discussing this plan with medical personnel, following up on diagnostic studies and following the patient for clinical stability excluding any and all procedures. At least 50% of this time was spent in direct, [id number] contact. Thank you for allowing me to participate in this patient's care. Further recommendations will depend on patient's clinical course. Please do not hesitate to contact me if you have any questions or concerns. This medical document was created using electronic medical record system with [employer] computerized dictation system. Although this document has been carefully reviewed, there may still be some phonetic and typographical errors. These areas are purely typographical due to the imperfection of the software programs, and do not reflect any compromise in the patient's medical care Plan discussed with: Patient, Daughter (at bedside), Other (nurse) BALTAZAR SOMMERS MD Jul 05, 2024 12:38
[2024-07-05] MEDS: SODIUM CHLORIDE 0.9% 1,000 ML IV SCH (15:23)
[2024-07-05 16:45] LABS: Basophils # (auto) 0 10 ^3/uL (0-0.2); Eosinophils # (auto) 0 10 ^3/uL (0-0.8); Hematocrit 36.8 % (36.0-46.0); Lymphocytes # (auto) 1.1 10 ^3/uL (0.4-5.4); Lymphocytes % (auto) 15.4 % (10.0-50.0); Mean Corpuscular Hemoglobin 28.9 pg (28.0-32.0); Mean Corpuscular Hgb Conc. 32.5 g/dL (32.0-36.0); Monocytes # (auto) 0.2 10 ^3/uL (0-1.3); Monocytes % (auto) 2.6 % (0.0-12.0); Neutrophils # (auto) 5.6 10 ^3/uL (1.6-8.6); Platelet Count (auto) 139 10^3/uL (140-450); Red Blood Cells 4.13 10^6/uL (4.0-5.20); Red Cell Distribution Width 15.4 % (11.8-14.3); White Blood Cell 6.9 10^3/uL (4.4-10.8)
[2024-07-05 17:06] LABS: Alanine Aminotransferase 38 U/L (7-40); Albumin 3.4 g/dL (3.2-4.8); Anion Gap 8 (5-15); BUN/Creatinine Ratio 20.9 (10.0-20.0); Blood Urea Nitrogen 19 mg/dL (9-23); Carbon Dioxide 25 mmol/L (20-31); Potassium 4.1 mmol/L (3.5-5.1); Sodium 143 mmol/L (136-145)
[2024-07-05 17:07] LABS: Bilirubin, Total 0.3 mg/dL (0.2-1.0)
[2024-07-05 17:10] LABS: Alkaline Phosphatase 150 U/L (46-116); Aspartate Aminotransferase 65 U/L (13-40); Calcium 8.1 mg/dL (8.7-10.4); Chloride 110 mmol/L (98-107); Glucose 216 mg/dL (74-106); Total Protein 4.9 g/dL (5.7-8.2)
--- NOTE | 2024-07-05 17:10 | DVHPN2 ---
Progress Note Date Seen: Jul 05, 2024 Medical Necessity Reason Pt with a Central, PICC or Fol: Yes The following are medically ne: Cowart Catheter Reason for cowart catheter: Strict I&O Subjective Review of Systems: CVS:Normal, RESPIRATORY:Normal, NEURO:Normal Objective vital signs Vital Sign Date Time Temp Pulse Resp B/P (MAP) Pulse Ox O2 Delivery O2 Flow Rate FiO2 07/05/24 16:33 95 16 95/50 07/05/24 15:42 Nasal Cannula* 3 32 07/05/24 12:00 98.7 99 98.7 Total Intake and Output 07/04/24 07/04/24 07/05/24 15:00 23:00 07:00 Intake Total 727.5 ml 710.6 ml 469.8 ml Output Total 650 ml 275 ml Balance 727.5 ml 60.6 ml 194.8 ml medications Current Medications Medications Dose Ordered Sig/Damon Route Start Time Stop Time Status Last Admin Dose Admin Ondansetron HCl 4 mg Q4HP PRN IV 07/01/24 21:15 07/05/24 08:43 4 MG Atorvastatin Calcium 20 mg DAILY PO 07/02/24 10:00 07/05/24 08:42 20 MG Baclofen 10 mg Q8HP PRN PO 07/01/24 21:15 07/05/24 11:58 10 MG Clopidogrel Bisulfate 75 mg DAILY PO 07/02/24 10:00 07/05/24 08:42 75 MG Lidocaine 1 patch DAILY TOP 07/02/24 10:00 07/05/24 08:47 1 PATCH Gabapentin 300 mg Q8H PO 07/01/24 21:15 07/05/24 11:58 300 MG Paroxetine HCl 20 mg DAILY PO 07/02/24 10:00 07/05/24 08:43 20 MG Morphine Sulfate 4 mg Q4HPRN PRN IV 07/01/24 23:15 07/05/24 16:33 4 MG Methylprednisolone Sodium Succinate 40 mg BID IV 07/02/24 10:00 07/05/24 08:42 40 MG Albuterol 2.5 mg Q6HP PRN NEB 07/02/24 05:30 Mesalamine 800 mg TID PO 07/02/24 10:15 07/05/24 13:07 800 MG Diagnostic Test (Pha) 1 strip ACHS 07/03/24 17:00 07/05/24 10:26 1 STRIP Insulin Human Regular ACHS SC 07/03/24 17:00 07/05/24 10:26 4 UNITS Dextrose 50 ml UD PRN IV 07/03/24 12:45 Norepinephrine Bitartrate 250 ml @ 3.75 mls/hr Q24H IV 07/03/24 14:45 Pantoprazole Sodium 40 mg DAILY IV 07/05/24 10:00 07/05/24 08:42 40 MG Atropine Sulfate 0.5 mg Q4HPRN PRN IV 07/04/24 19:45 Enoxaparin Sodium 80 mg Q12HR SC 07/04/24 23:30 07/05/24 08:43 80 MG Aspirin 81 mg DAILY PO 07/05/24 10:00 07/05/24 08:43 81 MG Sodium Chloride 1,000 ml @ 60 mls/hr [id number] IV 07/05/24 13:30 07/05/24 15:23 60 MLS/HR Vancomycin HCl 125 mg QID PO 07/05/24 18:00 Saccharomyces Boulardii 250 mg BID PO 07/05/24 22:00 Metronidazole 100 ml @ 100 mls/hr Q8HR IV 07/05/24 22:00 Ceftriaxone Sodium 50 ml @ 100 mls/hr DAILY@09 IV 07/06/24 09:00 Examination: GENERAL:Normal, LUNGS:Normal, CVS:Normal, ABDOMEN:Normal, SKIN:Normal laboratory and microbiology Laboratory Tests 07/05/24 16:18 Test 07/05/24 16:18 Range/Units Serum Glucose Pending Microbiology Date/Time Source Procedure Growth Status 07/04/24 10:41 Stool Clostridium difficile Toxin Assay - Final Complete 07/03/24 16:00 Sputum Gram Stain - Final Resulted 07/03/24 16:00 Sputum Respiratory Culture - Preliminary Resulted 07/02/24 10:22 Voided Urine Urine Culture - Final Complete Labs and/or images reviewed: Labs reviewed by me, Image(s) reviewed by me Problem List/Assessment/Plan Problem List/Assessment/Plan 1. Recurrent UTI Monitor, send UA, IV abx 2. Acute on chronic ulcerative colitis Monitor, IV abx 3. Mixed hyperlipidemia Monitor, medications 4. DM II with hyperglycemia Monitor, insulin ss 5. S/p colectomy Monitor 6. Hx CVA with residual weakness Monitor, restart anticoagulation 7. CAD Monitor 8. c diff colitis oral vancomycin 9. NSTEMI LHC, cardiac consult, therapeutic Lovenox 10. Bradycardia Atropine 0.5 p.r.n. as needed Assessment/Plan Subjective: Patient is awake and alert. Objective: Patient was successfully extubated yesterday after aspirating and is respiratory harrison stable off ventilator. Patient had bronchoscopy yesterday. Patient was originally admitted for ulcerative colitis, patient was found to have C diff today and was placed on oral vancomycin. Patient is reporting left lower quadrant pain. Could likely be secondary to C diff. patient was subsequently found to have elevated troponin which have Peaked at 1360. Patient was seen by Dr. Sabillon we will be planning for left heart catheterization on Sunday, patient was subsequently placed on therapeutic Lovenox. Patient was found to be bradycardic yesterday was given atropine and bradycardia has resolved. Plan: Start oral vancomycin and Flagyl IV. Plan for left heart catheterization per Dr. Sabillon on Sunday Continue insulin sliding scale for diabetes. Monitor for airway aspiration, advance diet as tolerated. Obtain blood cultures. Continue with gentle IV fluid hydration Plan discussed with: Patient My Orders My Orders Orders - TAMI ROOT Procedure Category Date Status Time Transfer Orders XFER 07/04/24 Transmitted 17:52 Clear Liq Diet DIET 07/04/24 Transmitted Dinner Discontinue Ng ORDERS 07/04/24 Transmitted 18:46 * Cardiology Consult CONS 07/04/24 Transmitted 19:16 Atropine Adult Syr PHA 07/04/24 In Process 0.1mg/Ml (Atropine Zamarripa 19:45 Blood Culture TATA 07/05/24 In Process 06:40 Echo 2d Mode Cardiac US 07/05/24 Resulted DOP 19:44 Sodium Chloride 0.9% PHA 07/05/24 In Process 13:30 Vancomycin Po PHA 07/05/24 In Process 18:00 Florastor (S. PHA 07/05/24 In Process Boulardii) (Florastor) 22:00 Metronidazole PHA 07/05/24 In Process 500mg/100ml (Flagyl 22:00 Ceftriaxone 1gm/50ml PHA 07/06/24 In Process D5w (Rocephin) 09:00 Precautions: Contact YESSY 07/05/24 In Process 15:24 Blood Culture TATA 07/05/24 Transmitted 17:01 Dietary Evaluation Review Comments: 1. Would change diet order to CHO 60 gm/meal, Low Fiber/Residue diet 2. Document PO intakes after each meal 3. If PO is <50% of meals consistently, consider oral nutrition supplement Expected Outcomes/Goals: Achieve adequate oral intake. Date of Service: Jul 05, 2024 Billing Provider: CAL MARTINO MD Common Visit Codes: [id number] INP/OBS CARE (MOD) TAMI ROOT [employer] Jul 05, 2024 17:10
[2024-07-05] MEDS: VANCOMYCIN HCL 125 MG CAP PO SCH (17:40)
[2024-07-05] MEDS: metroNIDAZOLE 500MG/100ML 100 ML IV SCH (21:40)
[2024-07-05] MEDS: FLORASTOR (S. BOULARDII) 250 MG CAP PO SCH (21:40)
--- NOTE | 2024-07-05 21:59 | DVHPN2 ---
Progress Note - Dictate Date Seen: Jul 05, 2024 Medical Necessity Reason Pt with a Central, PICC or Fol: Yes The following are medically ne: Cowart Catheter Reason for cowart catheter: Strict I&O Subjective No new complaints ; patient awake alert She is tolerating a diet Mild generalized abdominal pain Patient had 3-5 loose bowel movements today but there was no bleeding Stool for C diff was positive, patient has been started on oral vancomycin Last colonoscopy about a year ago at [facility] vital signs Vital Sign Date Time Temp Pulse Resp B/P (MAP) Pulse Ox O2 Delivery O2 Flow Rate FiO2 07/05/24 21:27 82 12 112/67 07/05/24 20:00 98.7 95 98.7 07/05/24 20:00 Nasal Cannula* 3 32 Total Intake and Output 07/04/24 07/04/24 07/05/24 14:59 22:59 06:59 Intake Total 732.5 ml 705 ml 544.8 ml Output Total 650 ml 275 ml Balance 732.5 ml 55 ml 269.8 ml medications Current Medications Medications Dose Ordered Sig/Damon Route Start Time Stop Time Status Last Admin Dose Admin Ondansetron HCl 4 mg Q4HP PRN IV 07/01/24 21:15 07/05/24 08:43 4 MG Atorvastatin Calcium 20 mg DAILY PO 07/02/24 10:00 07/05/24 08:42 20 MG Baclofen 10 mg Q8HP PRN PO 07/01/24 21:15 07/05/24 11:58 10 MG Clopidogrel Bisulfate 75 mg DAILY PO 07/02/24 10:00 07/05/24 08:42 75 MG Lidocaine 1 patch DAILY TOP 07/02/24 10:00 07/05/24 08:47 1 PATCH Gabapentin 300 mg Q8H PO 07/01/24 21:15 07/05/24 20:56 300 MG Paroxetine HCl 20 mg DAILY PO 07/02/24 10:00 07/05/24 08:43 20 MG Morphine Sulfate 4 mg Q4HPRN PRN IV 07/01/24 23:15 07/05/24 20:57 4 MG Methylprednisolone Sodium Succinate 40 mg BID IV 07/02/24 10:00 07/05/24 21:40 40 MG Albuterol 2.5 mg Q6HP PRN NEB 07/02/24 05:30 Mesalamine 800 mg TID PO 07/02/24 10:15 07/05/24 21:40 800 MG Diagnostic Test (Pha) 1 strip ACHS 07/03/24 17:00 07/05/24 21:40 1 STRIP Insulin Human Regular ACHS SC 07/03/24 17:00 07/05/24 17:33 4 UNITS Dextrose 50 ml UD PRN IV 07/03/24 12:45 Norepinephrine Bitartrate 250 ml @ 3.75 mls/hr Q24H IV 07/03/24 14:45 Pantoprazole Sodium 40 mg DAILY IV 07/05/24 10:00 07/05/24 08:42 40 MG Atropine Sulfate 0.5 mg Q4HPRN PRN IV 07/04/24 19:45 Enoxaparin Sodium 80 mg Q12HR SC 07/04/24 23:30 07/05/24 21:41 80 MG Aspirin 81 mg DAILY PO 07/05/24 10:00 07/05/24 08:43 81 MG Sodium Chloride 1,000 ml @ 60 mls/hr [id number] IV 07/05/24 13:30 07/05/24 15:23 60 MLS/HR Vancomycin HCl 125 mg QID PO 07/05/24 18:00 07/05/24 21:40 125 MG Saccharomyces Boulardii 250 mg BID PO 07/05/24 22:00 07/05/24 21:40 250 MG Metronidazole 100 ml @ 100 mls/hr Q8HR IV 07/05/24 22:00 07/05/24 21:40 100 MLS/HR Ceftriaxone Sodium 50 ml @ 100 mls/hr DAILY@09 IV 07/06/24 09:00 objective General Appearance: Alert, Oriented X3, Cooperative, on face mask HEENT: Atraumatic, PERRLA, EOMI, Mucous membrane moist/pink Respiratory: Clear to auscultation, Normal air movement Cardiovascular: Regular rate, Normal S1, Normal S2, No murmurs, no chest wall tenderness Abdominal: Soft obese nontender, bowel sounds present, no scars noted Extremities: No clubbing, No cyanosis, No edema, Normal pulses, No tenderness/swelling Skin: No rashes, No breakdown, No significant lesion Neuro: Normal gait, Normal speech, Strength at 5/5 X4 ext, Normal tone, Sensation intact, Cranial nerves 3-12 NL, Reflexes 2+ Psych/Mental Status: Mental status NL, Mood NL laboratory and microbiology Laboratory Tests 07/05/24 16:18 Test 07/05/24 16:18 Range/Units Serum Glucose 216 H 74-106 mg/dL Problems(with codes): (1) Diabetes (2) Obesity (3) Chest pain (4) Intractable abdominal pain (5) Diarrhea (6) Chronic ulcerative colitis (7) Diabetes (8) CHEST PAIN NEC Prognosis Plan Continue oral vancomycin Add probiotics Taper off IV steroids Continue mesalamine Supportive care from a GI point of view Questran 4 g packet p.o. daily or twice a day Dietary Evaluation Review Comments: 1. Would change diet order to CHO 60 gm/meal, Low Fiber/Residue diet 2. Document PO intakes after each meal 3. If PO is <50% of meals consistently, consider oral nutrition supplement Expected Outcomes/Goals: Achieve adequate oral intake. Plan discussed with: Patient, Other (KARINA Nurse) ISRAEL FARAH MD Jul 05, 2024 21:59
--- NOTE | 2024-07-05 23:06 | DVHPN2 ---
Progress Note - Dictate Date Seen: Jul 05, 2024 Medical Necessity Reason Pt with a Central, PICC or Fol: Yes The following are medically ne: Cowart Catheter Reason for cowart catheter: Strict I&O Subjective Patient seen and examined at bedside. Remains on supplemental oxygen Overnight events reviewed. vital signs Vital Sign Date Time Temp Pulse Resp B/P (MAP) Pulse Ox O2 Delivery O2 Flow Rate FiO2 07/05/24 22:30 51 11 109/65 (80) 95 07/05/24 22:00 Nasal Cannula* 3 32 07/05/24 20:00 98.7 98.7 Total Intake and Output 07/04/24 07/04/24 07/05/24 15:00 23:00 07:00 Intake Total 727.5 ml 710.6 ml 469.8 ml Output Total 650 ml 275 ml Balance 727.5 ml 60.6 ml 194.8 ml medications Current Medications Medications Dose Ordered Sig/Damon Route Start Time Stop Time Status Last Admin Dose Admin Ondansetron HCl 4 mg Q4HP PRN IV 07/01/24 21:15 07/05/24 08:43 4 MG Atorvastatin Calcium 20 mg DAILY PO 07/02/24 10:00 07/05/24 08:42 20 MG Baclofen 10 mg Q8HP PRN PO 07/01/24 21:15 07/05/24 11:58 10 MG Clopidogrel Bisulfate 75 mg DAILY PO 07/02/24 10:00 07/05/24 08:42 75 MG Lidocaine 1 patch DAILY TOP 07/02/24 10:00 07/05/24 08:47 1 PATCH Gabapentin 300 mg Q8H PO 07/01/24 21:15 07/05/24 20:56 300 MG Paroxetine HCl 20 mg DAILY PO 07/02/24 10:00 07/05/24 08:43 20 MG Morphine Sulfate 4 mg Q4HPRN PRN IV 07/01/24 23:15 07/05/24 20:57 4 MG Albuterol 2.5 mg Q6HP PRN NEB 07/02/24 05:30 Mesalamine 800 mg TID PO 07/02/24 10:15 07/05/24 21:40 800 MG Diagnostic Test (Pha) 1 strip ACHS 07/03/24 17:00 07/05/24 21:40 1 STRIP Insulin Human Regular ACHS SC 07/03/24 17:00 07/05/24 17:33 4 UNITS Dextrose 50 ml UD PRN IV 07/03/24 12:45 Norepinephrine Bitartrate 250 ml @ 3.75 mls/hr Q24H IV 07/03/24 14:45 Pantoprazole Sodium 40 mg DAILY IV 07/05/24 10:00 07/05/24 08:42 40 MG Atropine Sulfate 0.5 mg Q4HPRN PRN IV 07/04/24 19:45 Enoxaparin Sodium 80 mg Q12HR SC 07/04/24 23:30 07/05/24 21:41 80 MG Aspirin 81 mg DAILY PO 07/05/24 10:00 07/05/24 08:43 81 MG Sodium Chloride 1,000 ml @ 60 mls/hr [id number] IV 07/05/24 13:30 07/05/24 15:23 60 MLS/HR Vancomycin HCl 125 mg QID PO 07/05/24 18:00 07/05/24 21:40 125 MG Saccharomyces Boulardii 250 mg BID PO 07/05/24 22:00 07/05/24 21:40 250 MG Metronidazole 100 ml @ 100 mls/hr Q8HR IV 07/05/24 22:00 07/05/24 21:40 100 MLS/HR Ceftriaxone Sodium 50 ml @ 100 mls/hr DAILY@09 IV 07/06/24 09:00 Methylprednisolone Sodium Succinate 20 mg BID IV 07/06/24 10:00 Saccharomyces Boulardii 250 mg DAILY PO 07/06/24 10:00 Cholestyramine Resin 4 gm DAILY@11 PO 07/06/24 11:00 objective Gen.: Patient lying in bed in no apparent distress. On supplemental oxygen. Head: Normocephalic, atraumatic. Eyes: EOMI/PERRLA. Ears: Normal hearing. Normal anatomy. Neck/trachea: Trachea midline, supple. Nose: Normal external anatomy. Mouth: Moist mucous membranes. Chest: Decreased air entry bilaterally. No wheezing or rhonchi. Cardiovascular: Positive S1, positive S2. Regular rate and rhythm. Abdomen: Positive bowel sounds in all 4 quadrants. Soft, non-tender, non- distended. : Deferred. Rectal: Deferred. Skin: Warm, dry. Intact. Extremities: 2+ radial pulses bilaterally. No lower extremity edema. Neuro: Awake, alert, oriented x3. No gross motor or sensory deficits. Cranial nerves II through XII intact. Gait not assessed. laboratory and microbiology Laboratory Tests 07/05/24 16:18 Test 07/05/24 16:18 Range/Units Serum Glucose 216 H 74-106 mg/dL Assessment/Plan Impression: Respiratory distress, resolved Ruled out foreign body Asthma exacerbation Obesity Wheezing Urinary tract infection S/p colectomy Acute on chronic ulcerative colitis. Events: Remains on supplemental oxygen, 3 LPM NC Taper O2 as tolerated Continue antibiotics Bronchodilators PRN. Protonix for GI prophylaxis Therapeutic Lovenox for DVT prophylaxis Labs and imaging reviewed. Rest of plan as noted below. Plan: S/p extubation on 07/04/24 Supplemental oxygen Titrate to keep O2 sats above 92%. S/p bronchoscopy on 07/03, no evidence of foreign body in the lung. Scant bilateral lower lobe secretions were noted. Patient tolerated the procedure well. Received IV steroids Continue antibiotics. Bronchodilators PRN Pressors as necessary for hemodynamic support Titrate to keep mean arterial pressure greater than 65 mmHg. Pain control Avoid oversedation Surgery recs appreciated. Monitor renal function Monitor electrolytes. Supplement as necessary. Monitor ins and outs. Diet and lifestyle modifications for weight reduction Obesity - complicates all care DVT prophylaxis - Lovenox SC. Prognosis: Poor given patient's multiple co-morbidities. Rest of plan per hospitalist and other consultants. Thank you, Dr. Hylton, for allowing me to participate in this patient's care. Further recommendations will depend on the patient's clinical course. Please do not hesitate to contact me if you have any questions or concerns. This medical document was created using an electronic medical record system with [employer] dictation system. Although these documentations are being carefully reviewed, there may still be some phonetic and typographical changes. The errors are purely typographical, due to imperfection on the software program, and do not reflect any compromise in the patient's medical care. Dietary Evaluation Review Comments: 1. Would change diet order to CHO 60 gm/meal, Low Fiber/Residue diet 2. Document PO intakes after each meal 3. If PO is <50% of meals consistently, consider oral nutrition supplement Expected Outcomes/Goals: Achieve adequate oral intake. Plan discussed with: Patient, Other (ISRAEL Jane) LUISA CHILDERS MD Jul 05, 2024 23:06
[2024-07-06] VITALS (50 sets, daily range): BP systolic 78–137; BP diastolic 33–81; PULSE 43–68; RESP 8–20; TEMP 97.9–98.9; O2SAT 90–99
[2024-07-06 05:41] LABS: Basophils # (auto) 0 10 ^3/uL (0-0.2); Basophils % (auto) 0.1 % (0.0-2.0); Eosinophils # (auto) 0 10 ^3/uL (0-0.8); Hematocrit 35.3 % (36.0-46.0); Hemoglobin 11.6 g/dL (12.2-16.2); Lymphocytes # (auto) 0.7 10 ^3/uL (0.4-5.4); Lymphocytes % (auto) 10.2 % (10.0-50.0); Mean Corpuscular Hemoglobin 29.3 pg (28.0-32.0); Mean Corpuscular Hgb Conc. 32.7 g/dL (32.0-36.0); Mean Corpuscular Volume 89.7 fL (80.0-100.0); Monocytes # (auto) 0.1 10 ^3/uL (0-1.3); Monocytes % (auto) 2.1 % (0.0-12.0); Neutrophils # (auto) 5.6 10 ^3/uL (1.6-8.6); Neutrophils % (auto) 87.6 % (37.0-80.0); Platelet Count (auto) 143 10^3/uL (140-450); Red Blood Cells 3.94 10^6/uL (4.0-5.20); Red Cell Distribution Width 15.2 % (11.8-14.3); White Blood Cell 6.4 10^3/uL (4.4-10.8)
[2024-07-06 05:59] LABS: Alanine Aminotransferase 28 U/L (7-40); Albumin 3.4 g/dL (3.2-4.8); Anion Gap 8 (5-15); Aspartate Aminotransferase 19 U/L (13-40); BUN/Creatinine Ratio 17.6 (10.0-20.0); Blood Urea Nitrogen 15 mg/dL (9-23); Carbon Dioxide 26 mmol/L (20-31); Magnesium 2.4 mg/dL (1.6-2.6); Sodium 142 mmol/L (136-145)
[2024-07-06 06:42] LABS: Alkaline Phosphatase 127 U/L (46-116); Calcium 8.3 mg/dL (8.7-10.4); Chloride 108 mmol/L (98-107); Glucose 182 mg/dL (74-106)
[2024-07-06 06:43] LABS: Bilirubin, Total 0.3 mg/dL (0.2-1.0); Total Protein 5.1 g/dL (5.7-8.2)
--- NOTE | 2024-07-06 08:39 | DVHPN2 ---
Progress Note - Dictate Date Seen: Jul 06, 2024 Medical Necessity Reason Pt with a Central, PICC or Fol: Yes The following are medically ne: Cowart Catheter Reason for cowart catheter: Strict I&O vital signs Vital Sign Date Time Temp Pulse Resp B/P (MAP) Pulse Ox O2 Delivery O2 Flow Rate FiO2 07/06/24 08:00 98.0 60 13 115/68 (84) 96 98.0 07/06/24 06:47 Nasal Cannula* 2 28 Total Intake and Output 07/05/24 07/05/24 07/06/24 15:00 23:00 07:00 Intake Total 91.8 ml 580 ml 780 ml Output Total 400 ml 400 ml Balance 91.8 ml 180 ml 380 ml medications Current Medications Medications Dose Ordered Sig/Damon Route Start Time Stop Time Status Last Admin Dose Admin Ondansetron HCl 4 mg Q4HP PRN IV 07/01/24 21:15 07/05/24 08:43 4 MG Atorvastatin Calcium 20 mg DAILY PO 07/02/24 10:00 07/05/24 08:42 20 MG Baclofen 10 mg Q8HP PRN PO 07/01/24 21:15 07/06/24 00:05 10 MG Clopidogrel Bisulfate 75 mg DAILY PO 07/02/24 10:00 07/05/24 08:42 75 MG Lidocaine 1 patch DAILY TOP 07/02/24 10:00 07/05/24 08:47 1 PATCH Gabapentin 300 mg Q8H PO 07/01/24 21:15 07/06/24 05:29 300 MG Paroxetine HCl 20 mg DAILY PO 07/02/24 10:00 07/05/24 08:43 20 MG Morphine Sulfate 4 mg Q4HPRN PRN IV 07/01/24 23:15 07/06/24 01:08 4 MG Albuterol 2.5 mg Q6HP PRN NEB 07/02/24 05:30 Mesalamine 800 mg TID PO 07/02/24 10:15 07/06/24 05:33 800 MG Diagnostic Test (Pha) 1 strip ACHS 07/03/24 17:00 07/06/24 06:31 1 STRIP Insulin Human Regular ACHS SC 07/03/24 17:00 07/06/24 06:32 3 UNITS Dextrose 50 ml UD PRN IV 07/03/24 12:45 Norepinephrine Bitartrate 250 ml @ 3.75 mls/hr Q24H IV 07/03/24 14:45 Pantoprazole Sodium 40 mg DAILY IV 07/05/24 10:00 07/05/24 08:42 40 MG Atropine Sulfate 0.5 mg Q4HPRN PRN IV 07/04/24 19:45 Enoxaparin Sodium 80 mg Q12HR SC 07/04/24 23:30 07/05/24 21:41 80 MG Aspirin 81 mg DAILY PO 07/05/24 10:00 07/05/24 08:43 81 MG Sodium Chloride 1,000 ml @ 60 mls/hr [id number] IV 07/05/24 13:30 07/06/24 06:31 60 MLS/HR Vancomycin HCl 125 mg QID PO 07/05/24 18:00 07/06/24 05:33 125 MG Saccharomyces Boulardii 250 mg BID PO 07/05/24 22:00 07/05/24 21:40 250 MG Metronidazole 100 ml @ 100 mls/hr Q8HR IV 07/05/24 22:00 07/06/24 05:33 100 MLS/HR Ceftriaxone Sodium 50 ml @ 100 mls/hr DAILY@09 IV 07/06/24 09:00 Methylprednisolone Sodium Succinate 20 mg BID IV 07/06/24 10:00 Saccharomyces Boulardii 250 mg DAILY PO 07/06/24 10:00 Cholestyramine Resin 4 gm DAILY@11 PO 07/06/24 11:00 laboratory and microbiology Laboratory Tests 07/06/24 05:17 Test 07/06/24 05:17 Range/Units Serum Glucose 182 H 74-106 mg/dL Assessment/Plan Patient is a 59-year-old female who originally presented to the hospital on July 01, 2024 for lower abdominal pain. She also had nausea and diarrhea that time of presentation. It is of note that the patient does have history of inflammatory bowel disease (ulcerative colitis/Crohn's disease) and presentation was assessed somehow related to the inflammatory bowel disease. Since arrival, the patient was intubated at that point and later extubated. She actually had some EGD also. Cardiology was involved (on July 05, 2024) for an episode of sinus bradycardia for which patient was temporarily on Isuprel drip. She mentions that she has been experiencing some chest tightness for the past 2 days also. She denies previous chest tightness. She is known to our practice from before. She does have history of HFpEF. She is being managed in BEE/ICU. She is found to have increased troponin and has been started on aspirin/Lovenox. She does have history of CVA and carotid disease. She has had carotid endarterectomy (right side) before. There is no previous history of coronary artery disease. Nuclear stress test of December 2021 had been nonrevealing. She is kept on aspirin/Plavix as outpatient (old CVA). Not in acute distress. No JVD. Mucosa is pink and wet. No carotid bruit. Lungs are clear to auscultation. Not using accessory muscles of breathing. Cardiac: Regular, no thrills/gallop. Abdomen is soft. Lower abdominal tenderness can be elicited. There is no rebound. Bowel sound is positive There was no gross mass/hepatomegaly. Extremities do not reveal edema. Dorsalis pedis is 2+ bilateral. Left-sided hemiparesis can somehow be observed. 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 She has had kidney stones/hydronephrosis/hydroureter before. Uses a walker for ambulation (secondary to old CVA). Echocardiogram of December 16, 2022 (performed in [facility]) revealed ejection fraction of 60%, mild TR and right ventricular systolic pressure of 27 mm Hg. Echocardiogram of October 18, 2023 reported ejection fraction 55-60%, mild MR/TR and right ventricular systolic pressure of 25 mm Echocardiogram of May 05, 2024 revealed ejection fraction of 50-55%, normal diastolic, trace MR/TR and right ventricular systolic pressure of 28 mm Hg Nuclear stress test of January 03, 2022 (performed as outpatient) revealed ejection fraction of 80% and no evidence for ischemia/scar. WBC: 9.1 - 7.1 - 12.9 - 12.2 - 6.9 - 6.4 D-dimer: 0.36 (within normal limits) Creatinine: 1.12 - 0.86 - 0.98 - 0.91 - 1.12 - 0.91 - 0.85 Potassium: 4.0 - 4.2 - 3.7 - 4.2 - 3.2 - 4.1 - 4.0 TSH: 1.91 BNP: 638.05 - 492.56 Troponin (high sensitive): 1283 - 1360 - 1105 - 1049 - 1247 Urine culture was positive for Gram-positive annika Urine toxicology was positive for opiates Stool was positive for CDT toxin Chest x-ray reported: IMPRESSION: 1. Endotracheal tube 2.7 cm above the dante. 2. Enteric tube in the stomach 3. Bibasilar areas of atelectasis or infiltrate. Repeat chest x-ray reported: IMPRESSION: Pulmonary venous congestion. CT of the head revealed: IMPRESSION: 1. No acute intracranial abnormality. CT of the abdomen and pelvis revealed: IMPRESSION: 1. There is no acute process in the abdomen and pelvis. 2. Scattered colonic diverticula without evidence of acute diverticulitis. 3. Stable fibroid uterus. EKG reveals sinus rhythm, nonspecific ST-T changes Tele reveals sinus bradycardia and later sinus rhythm Echocardiogram reported: Left ventricle: Left ventricle wall is normal-sized. LVEF is around 40%. Mild diffuse hypokinesis of left ventricle was seen. Right ventricle was normal-sized with normal systolic function. Both atria were normal-sized. Aortic valve was trileaflet. There was no aortic insufficiency/stenosis. There was trace mitral/tricuspid regurgitation. Pulmonary valve was not well visualized. IVC was dilated. Right ventricular systolic pressure was assessed at 30 mm Hg. There was no pericardial effusion. Patient is a 59-year-old female who originally presented with abdominal pain/nausea/diarrhea. Assessment of the presentation has been acute inflammatory bowel disease. Patient was intubated and later extubated for respiratory failure. Patient did have EGD which found gastritis. Patient did have an episode of sinus bradycardia which improved on Isuprel at 1st and later resolved (could it have been secondary to significant abdominal pain/vagal induced?). Patient is found to have abnormal troponin (relatively stable and peaked at 1360) with some chest discomfort. Presentation could be considered non-STEMI. Recognizing comorbidities and the significant abdominal pain during this presentation, stress-induced cardiomyopathy can not be ruled out. Echocardiogram has revealed decrease in systolic function (diffuse hypokinesis). Ischemic workup is suggested. Abdominal pain Acute inflammatory bowel disease, exacerbation C-Diff Colitis UTI, complicated Acute respiratory failure, status post intubation, extubation Systolic heart failure, acute, new finding Abnormal troponin Non-STEMI Sinus bradycardia, resolved Intractable abdominal pain History of old CVA with left hemiparesis History of Crohn disease/ulcerative colitis Morbid obesity Constipation Hyperlipidemia Status post carotid endarterectomy Diverticular disease, history of Cardiac suggestion for management: Manage in ICU/BEE Follow-up electrolytes and kidney function tests and correct abnormalities. Keep potassium above 4 and magnesium above 2 Full anticoagulation (on Lovenox) for now Aspirin Ischemic workup/cardiac catheterization, early next week (tentatively on Sunday?) Evaluation and management of abdominal pain/inflammatory bowel disease as per GI/primary team Evaluation and management of UTI as per primary team Evaluation and management of C-Diff Colitis as per primary team Pulmonary follow-up for recent history of acute respiratory failure Pain management as per primary team Further evaluation and management depends on the above and clinical course A total of 75 minutes was spent reviewing the patient record, examining the patient, making a diagnostic and therapeutic plan, discussing this plan with medical personnel, following up on diagnostic studies and following the patient for clinical stability excluding any and all procedures. At least 50% of this time was spent in direct, [id number] contact. Thank you for allowing me to participate in this patient's care. Further recommendations will depend on patient's clinical course. Please do not hesitate to contact me if you have any questions or concerns. This medical document was created using electronic medical record system with [employer] computerized dictation system. Although this document has been carefully reviewed, there may still be some phonetic and typographical errors. These areas are purely typographical due to the imperfection of the software programs, and do not reflect any compromise in the patient's medical care Dietary Evaluation Review Comments: 1. Would change diet order to CHO 60 gm/meal, Low Fiber/Residue diet 2. Document PO intakes after each meal 3. If PO is <50% of meals consistently, consider oral nutrition supplement Expected Outcomes/Goals: Achieve adequate oral intake. Plan discussed with: Patient, Other (nurse) BALTAZAR SOMMERS MD Jul 06, 2024 08:39
[2024-07-06] MEDS: cefTRIAXone 1GM/50ML D5W 50 ML IV SCH (09:17)
[2024-07-06] MEDS: methylPREDNISolone SOD SUCC 40 MG/ML VL IV SCH (09:18)
[2024-07-06] MEDS: FLORASTOR (S. BOULARDII) 250 MG CAP PO SCH (09:55)
--- NOTE | 2024-07-06 10:34 | DVHPN2 ---
Progress Note Date Seen: Jul 06, 2024 Medical Necessity Reason Pt with a Central, PICC or Fol: Yes The following are medically ne: Cowart Catheter Reason for cowart catheter: Strict I&O Subjective Review of Systems: CVS:Normal, RESPIRATORY:Normal, GI:Normal, NEURO:Normal Objective vital signs Vital Sign Date Time Temp Pulse Resp B/P (MAP) Pulse Ox O2 Delivery O2 Flow Rate FiO2 07/06/24 10:00 44 07/06/24 10:00 11 96 Nasal Cannula* 2 28 07/06/24 10:00 127/73 (91) 07/06/24 08:01 98.0 98.0 Total Intake and Output 07/05/24 07/05/24 07/06/24 15:00 23:00 07:00 Intake Total 91.8 ml 580 ml 780 ml Output Total 400 ml 400 ml Balance 91.8 ml 180 ml 380 ml medications Current Medications Medications Dose Ordered Sig/Damon Route Start Time Stop Time Status Last Admin Dose Admin Ondansetron HCl 4 mg Q4HP PRN IV 07/01/24 21:15 07/05/24 08:43 4 MG Atorvastatin Calcium 20 mg DAILY PO 07/02/24 10:00 07/06/24 09:18 20 MG Baclofen 10 mg Q8HP PRN PO 07/01/24 21:15 Hold 07/06/24 00:05 10 MG Clopidogrel Bisulfate 75 mg DAILY PO 07/02/24 10:00 07/06/24 09:17 75 MG Lidocaine 1 patch DAILY TOP 07/02/24 10:00 07/05/24 08:47 1 PATCH Gabapentin 300 mg Q8H PO 07/01/24 21:15 07/06/24 05:29 300 MG Paroxetine HCl 20 mg DAILY PO 07/02/24 10:00 07/06/24 09:18 20 MG Morphine Sulfate 4 mg Q4HPRN PRN IV 07/01/24 23:15 07/06/24 09:14 4 MG Albuterol 2.5 mg Q6HP PRN NEB 07/02/24 05:30 Mesalamine 800 mg TID PO 07/02/24 10:15 07/06/24 05:33 800 MG Diagnostic Test (Pha) 1 strip ACHS 07/03/24 17:00 07/06/24 06:31 1 STRIP Insulin Human Regular ACHS SC 07/03/24 17:00 07/06/24 06:32 3 UNITS Dextrose 50 ml UD PRN IV 07/03/24 12:45 Norepinephrine Bitartrate 250 ml @ 3.75 mls/hr Q24H IV 07/03/24 14:45 Pantoprazole Sodium 40 mg DAILY IV 07/05/24 10:00 07/06/24 09:14 40 MG Atropine Sulfate 0.5 mg Q4HPRN PRN IV 07/04/24 19:45 Enoxaparin Sodium 80 mg Q12HR SC 07/04/24 23:30 07/06/24 09:19 80 MG Aspirin 81 mg DAILY PO 07/05/24 10:00 07/06/24 09:17 81 MG Sodium Chloride 1,000 ml @ 60 mls/hr [id number] IV 07/05/24 13:30 07/06/24 06:31 60 MLS/HR Vancomycin HCl 125 mg QID PO 07/05/24 18:00 07/06/24 05:33 125 MG Metronidazole 100 ml @ 100 mls/hr Q8HR IV 07/05/24 22:00 07/06/24 05:33 100 MLS/HR Ceftriaxone Sodium 50 ml @ 100 mls/hr DAILY@09 IV 07/06/24 09:00 07/06/24 09:17 100 MLS/HR Methylprednisolone Sodium Succinate 20 mg BID IV 07/06/24 10:00 07/06/24 09:18 20 MG Saccharomyces Boulardii 250 mg DAILY PO 07/06/24 10:00 Cholestyramine Resin 4 gm DAILY@11 PO 07/06/24 11:00 Acetaminophen/ Hydrocodone Bitart 1 tab Q6HP PRN PO 07/06/24 10:00 Examination: GENERAL:Normal, LUNGS:Normal, CVS:Normal, ABDOMEN:Normal, SKIN:Normal laboratory and microbiology Laboratory Tests 07/06/24 05:17 Test 07/06/24 05:17 Range/Units Serum Glucose 182 H 74-106 mg/dL Microbiology Date/Time Source Procedure Growth Status 07/04/24 10:41 Stool Clostridium difficile Toxin Assay - Final Complete 07/03/24 16:00 Sputum Gram Stain - Final Resulted 07/03/24 16:00 Sputum Respiratory Culture - Preliminary Resulted 07/02/24 10:22 Voided Urine Urine Culture - Final Complete Labs and/or images reviewed: Labs reviewed by me, Image(s) reviewed by me Problem List/Assessment/Plan Problem List/Assessment/Plan 1. Recurrent UTI Monitor, send UA, IV abx 2. Acute on chronic ulcerative colitis Monitor, IV abx 3. Mixed hyperlipidemia Monitor, medications 4. DM II with hyperglycemia Monitor, insulin ss 5. S/p colectomy Monitor 6. Hx CVA with residual weakness Monitor, restart anticoagulation 7. CAD Monitor 8. c diff colitis oral vancomycin 9. NSTEMI [facility], cardiac consult, therapeutic Lovenox 10. Bradycardia Atropine 0.5 p.r.n. as needed Assessment/Plan Subjective: Patient is awake and alert. Objective: Patient was successfully extubated yesterday after aspirating and is respiratory harrison stable off ventilator. Patient had bronchoscopy 07/04 with bronchial washing. Patient was originally admitted for ulcerative colitis, patient was found to have C diff colitis yesterday and was placed on oral vancomycin. Patient is reporting left lower quadrant pain. Could likely be secondary to C diff. patient was subsequently found to have elevated troponin which have Peaked at 1360. Patient was seen by Dr. Sabillon we will be planning for left heart catheterization on Sunday, patient was subsequently placed on therapeutic Lovenox. Patient was found to be bradycardic and can receive atropine as need for HR below 40. Plan: continue oral vancomycin and Flagyl IV. Plan for left heart catheterization per Dr. Sabillon on Sunday Continue insulin sliding scale for diabetes. Monitor for airway aspiration, advance diet as tolerated. await blood cultures. Continue with gentle IV fluid hydration Plan discussed with: Patient My Orders My Orders Orders - TAMI ROOT Procedure Category Date Status Time Sodium Chloride 0.9% PHA 07/05/24 In Process 13:30 Vancomycin Po PHA 07/05/24 In Process 18:00 Metronidazole PHA 07/05/24 In Process 500mg/100ml (Flagyl 22:00 Ceftriaxone 1gm/50ml PHA 07/06/24 In Process D5w (Rocephin) 09:00 Precautions: Contact YESSY 07/05/24 In Process 15:24 Dietary Evaluation Review Comments: 1. Would change diet order to CHO 60 gm/meal, Low Fiber/Residue diet 2. Document PO intakes after each meal 3. If PO is <50% of meals consistently, consider oral nutrition supplement Expected Outcomes/Goals: Achieve adequate oral intake. Date of Service: Jul 06, 2024 Billing Provider: CAL MARTINO MD Common Visit Codes: [id number] INP/OBS CARE (MOD) TAMI ROOT Jul 06, 2024 10:34
--- NOTE | 2024-07-06 11:36 | ECG ---
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
[2024-07-06] MEDS: CHOLESTYRAMINE 4 GM POWDER PO SCH (12:45)
[2024-07-06] MEDS: HYDROcodone-ACET 10/325MG TAB PO PRN (17:19)
--- NOTE | 2024-07-06 20:56 | DVHPN2 ---
Progress Note - Dictate Date Seen: Jul 06, 2024 Medical Necessity Reason Pt with a Central, PICC or Fol: Yes The following are medically ne: Cowart Catheter Reason for cowart catheter: Strict I&O Subjective No new complaints ; patient awake alert She is tolerating a diet Mild generalized abdominal pain Mild sinus bradycardia Patient had 3-4 loose bowel movements today but there was no bleeding Stool for C diff was positive, patient has been started on oral vancomycin Last colonoscopy about a year ago at [facility] vital signs Vital Sign Date Time Temp Pulse Resp B/P (MAP) Pulse Ox O2 Delivery O2 Flow Rate FiO2 07/06/24 19:50 56 14 135/81 07/06/24 18:33 99 Nasal Cannula 2.0 07/06/24 18:33 28 07/06/24 16:00 98.5 98.5 Total Intake and Output 07/05/24 07/05/24 07/06/24 15:00 23:00 07:00 Intake Total 91.8 ml 580 ml 780 ml Output Total 400 ml 400 ml Balance 91.8 ml 180 ml 380 ml medications Current Medications Medications Dose Ordered Sig/Damon Route Start Time Stop Time Status Last Admin Dose Admin Ondansetron HCl 4 mg Q4HP PRN IV 07/01/24 21:15 07/05/24 08:43 4 MG Atorvastatin Calcium 20 mg DAILY PO 07/02/24 10:00 07/06/24 09:18 20 MG Baclofen 10 mg Q8HP PRN PO 07/01/24 21:15 Hold 07/06/24 00:05 10 MG Clopidogrel Bisulfate 75 mg DAILY PO 07/02/24 10:00 07/06/24 09:17 75 MG Lidocaine 1 patch DAILY TOP 07/02/24 10:00 07/05/24 08:47 1 PATCH Gabapentin 300 mg Q8H PO 07/01/24 21:15 07/06/24 12:50 300 MG Paroxetine HCl 20 mg DAILY PO 07/02/24 10:00 07/06/24 09:18 20 MG Morphine Sulfate 4 mg Q4HPRN PRN IV 07/01/24 23:15 07/06/24 19:50 4 MG Albuterol 2.5 mg Q6HP PRN NEB 07/02/24 05:30 Mesalamine 800 mg TID PO 07/02/24 10:15 07/06/24 14:13 800 MG Diagnostic Test (Pha) 1 strip ACHS 07/03/24 17:00 07/06/24 17:19 1 STRIP Insulin Human Regular ACHS SC 07/03/24 17:00 07/06/24 18:10 3 UNITS Dextrose 50 ml UD PRN IV 07/03/24 12:45 Norepinephrine Bitartrate 250 ml @ 3.75 mls/hr Q24H IV 07/03/24 14:45 Pantoprazole Sodium 40 mg DAILY IV 07/05/24 10:00 07/06/24 09:14 40 MG Atropine Sulfate 0.5 mg Q4HPRN PRN IV 07/04/24 19:45 Enoxaparin Sodium 80 mg Q12HR SC 07/04/24 23:30 07/06/24 09:19 80 MG Aspirin 81 mg DAILY PO 07/05/24 10:00 07/06/24 09:17 81 MG Sodium Chloride 1,000 ml @ 60 mls/hr [id number] IV 07/05/24 13:30 07/06/24 06:31 60 MLS/HR Vancomycin HCl 125 mg QID PO 07/05/24 18:00 07/06/24 17:19 125 MG Metronidazole 100 ml @ 100 mls/hr Q8HR IV 07/05/24 22:00 07/06/24 14:13 100 MLS/HR Methylprednisolone Sodium Succinate 20 mg BID IV 07/06/24 10:00 07/06/24 09:18 20 MG Saccharomyces Boulardii 250 mg DAILY PO 07/06/24 10:00 Cholestyramine Resin 4 gm DAILY@11 PO 07/06/24 11:00 07/06/24 12:45 4 GM Acetaminophen/ Hydrocodone Bitart 1 tab Q6HP PRN PO 07/06/24 10:00 07/06/24 17:19 1 TAB objective General Appearance: Alert, Oriented X3, Cooperative, on face mask HEENT: Atraumatic, PERRLA, EOMI, Mucous membrane moist/pink Respiratory: Clear to auscultation, Normal air movement Cardiovascular: Regular rate, Normal S1, Normal S2, No murmurs, no chest wall tenderness Abdominal: Soft obese nontender, bowel sounds present, no scars noted Extremities: No clubbing, No cyanosis, No edema, Normal pulses, No tenderness/swelling Skin: No rashes, No breakdown, No significant lesion Neuro: Normal gait, Normal speech, Strength at 5/5 X4 ext, Normal tone, Sensation intact, Cranial nerves 3-12 NL, Reflexes 2+ Psych/Mental Status: Mental status NL, Mood NL laboratory and microbiology Laboratory Tests 07/06/24 05:17 Test 07/06/24 05:17 Range/Units Serum Glucose 182 H 74-106 mg/dL Problems(with codes): (1) C. difficile colitis (2) C. difficile diarrhea (3) CHEST PAIN NEC (4) Diabetes (5) Intractable abdominal pain (6) Diarrhea (7) Chronic ulcerative colitis Prognosis Assessment plan I do not believe the patient has a exacerbation of her ulcerative colitis Her stool for WBC is negative and occult blood is negative I believe the patient may be having C diff diarrhea and she has been started on oral vancomycin Continue probiotics Taper off the IV steroids Continue supportive care Patient is being evaluated for possible heart catheterization Dietary Evaluation Review Comments: 1. Would change diet order to CHO 60 gm/meal, Low Fiber/Residue diet 2. Document PO intakes after each meal 3. If PO is <50% of meals consistently, consider oral nutrition supplement Expected Outcomes/Goals: Achieve adequate oral intake. Plan discussed with: Patient ISRAEL FARAH MD Jul 06, 2024 20:56
--- NOTE | 2024-07-06 22:06 | DVHPN2 ---
Progress Note - Dictate Date Seen: Jul 06, 2024 Medical Necessity Reason Pt with a Central, PICC or Fol: Yes The following are medically ne: Cowart Catheter Reason for cowart catheter: Strict I&O Subjective Patient seen and examined at bedside. Remains on supplemental oxygen Overnight events reviewed. vital signs Vital Sign Date Time Temp Pulse Resp B/P (MAP) Pulse Ox O2 Delivery O2 Flow Rate FiO2 07/06/24 20:30 97.9 55 9 123/63 (83) 97 97.9 07/06/24 18:33 Nasal Cannula 2.0 07/06/24 18:33 28 Total Intake and Output 07/05/24 07/05/24 07/06/24 15:00 23:00 07:00 Intake Total 91.8 ml 580 ml 780 ml Output Total 400 ml 400 ml Balance 91.8 ml 180 ml 380 ml medications Current Medications Medications Dose Ordered Sig/Damon Route Start Time Stop Time Status Last Admin Dose Admin Ondansetron HCl 4 mg Q4HP PRN IV 07/01/24 21:15 07/05/24 08:43 4 MG Atorvastatin Calcium 20 mg DAILY PO 07/02/24 10:00 07/06/24 09:18 20 MG Baclofen 10 mg Q8HP PRN PO 07/01/24 21:15 Hold 07/06/24 00:05 10 MG Clopidogrel Bisulfate 75 mg DAILY PO 07/02/24 10:00 07/06/24 09:17 75 MG Lidocaine 1 patch DAILY TOP 07/02/24 10:00 07/05/24 08:47 1 PATCH Gabapentin 300 mg Q8H PO 07/01/24 21:15 07/06/24 12:50 300 MG Paroxetine HCl 20 mg DAILY PO 07/02/24 10:00 07/06/24 09:18 20 MG Morphine Sulfate 4 mg Q4HPRN PRN IV 07/01/24 23:15 07/06/24 19:50 4 MG Albuterol 2.5 mg Q6HP PRN NEB 07/02/24 05:30 Mesalamine 800 mg TID PO 07/02/24 10:15 07/06/24 14:13 800 MG Diagnostic Test (Pha) 1 strip ACHS 07/03/24 17:00 07/06/24 17:19 1 STRIP Insulin Human Regular ACHS SC 07/03/24 17:00 07/06/24 18:10 3 UNITS Dextrose 50 ml UD PRN IV 07/03/24 12:45 Norepinephrine Bitartrate 250 ml @ 3.75 mls/hr Q24H IV 07/03/24 14:45 Pantoprazole Sodium 40 mg DAILY IV 07/05/24 10:00 07/06/24 09:14 40 MG Atropine Sulfate 0.5 mg Q4HPRN PRN IV 07/04/24 19:45 Enoxaparin Sodium 80 mg Q12HR SC 07/04/24 23:30 07/06/24 09:19 80 MG Aspirin 81 mg DAILY PO 07/05/24 10:00 07/06/24 09:17 81 MG Sodium Chloride 1,000 ml @ 60 mls/hr [id number] IV 07/05/24 13:30 07/06/24 06:31 60 MLS/HR Vancomycin HCl 125 mg QID PO 07/05/24 18:00 07/06/24 17:19 125 MG Metronidazole 100 ml @ 100 mls/hr Q8HR IV 07/05/24 22:00 07/06/24 14:13 100 MLS/HR Saccharomyces Boulardii 250 mg DAILY PO 07/06/24 10:00 Cholestyramine Resin 4 gm DAILY@11 PO 07/06/24 11:00 07/06/24 12:45 4 GM Acetaminophen/ Hydrocodone Bitart 1 tab Q6HP PRN PO 07/06/24 10:00 07/06/24 17:19 1 TAB Methylprednisolone Sodium Succinate 20 mg DAILY IV 07/07/24 10:00 objective Gen.: Patient lying in bed in no apparent distress. On supplemental oxygen. Head: Normocephalic, atraumatic. Eyes: EOMI/PERRLA. Ears: Normal hearing. Normal anatomy. Neck/trachea: Trachea midline, supple. Nose: Normal external anatomy. Mouth: Moist mucous membranes. Chest: Decreased air entry bilaterally. No wheezing or rhonchi. Cardiovascular: Positive S1, positive S2. Regular rate and rhythm. Abdomen: Positive bowel sounds in all 4 quadrants. Soft, non-tender, non- distended. : Deferred. Rectal: Deferred. Skin: Warm, dry. Intact. Extremities: 2+ radial pulses bilaterally. No lower extremity edema. Neuro: Awake, alert, oriented x3. No gross motor or sensory deficits. Cranial nerves II through XII intact. Gait not assessed. laboratory and microbiology Laboratory Tests 07/06/24 05:17 Test 07/06/24 05:17 Range/Units Serum Glucose 182 H 74-106 mg/dL Assessment/Plan Impression: Respiratory distress, resolved Ruled out foreign body Asthma exacerbation Obesity Wheezing Urinary tract infection S/p colectomy Acute on chronic ulcerative colitis. Events: Remains on supplemental oxygen, 2 LPM NC Taper O2 as tolerated Plan for left heart catheterization in the AM. Follow up Cardiology recs Positive C. difficile Continue antibiotics (PO Vancomycin and Flagyl) Sinus bradycardia Monitor blood pressure Pain control Avoid oversedation Protonix for GI prophylaxis Labs and imaging reviewed. Rest of plan as noted below. Plan: S/p extubation on 07/04/24 Supplemental oxygen Titrate to keep O2 sats above 92%. S/p bronchoscopy on 07/03, no evidence of foreign body in the lung. Scant bilateral lower lobe secretions were noted. Patient tolerated the procedure well. Received IV steroids Continue antibiotics. Bronchodilators PRN Pressors as necessary for hemodynamic support Titrate to keep mean arterial pressure greater than 65 mmHg. Pain control Avoid oversedation Surgery recs appreciated. Monitor renal function Monitor electrolytes. Supplement as necessary. Monitor ins and outs. Diet and lifestyle modifications for weight reduction Obesity - complicates all care DVT prophylaxis - Lovenox SC. Prognosis: Poor given patient's multiple co-morbidities. Condition: Critical Rest of plan per hospitalist and other consultants. A total of 35 minutes of critical care time was spent reviewing the patient record, examining the patient, making a diagnostic and therapeutic plan, discussing this plan with the medical personnel, following up on diagnostic studies and following the patient for clinical stability excluding any and all procedures. At least 50% of this time was spent in direct, [id number] contact. Thank you, Dr. Hylton, for allowing me to participate in this patient's care. Further recommendations will depend on the patient's clinical course. Please do not hesitate to contact me if you have any questions or concerns. This medical document was created using an electronic medical record system with [employer] system. Although these documentations are being carefully reviewed, there may still be some phonetic and typographical changes. The errors are purely typographical, due to imperfection on the software program, and do not reflect any compromise in the patient's medical care. Dietary Evaluation Review Comments: 1. Would change diet order to CHO 60 gm/meal, Low Fiber/Residue diet 2. Document PO intakes after each meal 3. If PO is <50% of meals consistently, consider oral nutrition supplement Expected Outcomes/Goals: Achieve adequate oral intake. Plan discussed with: Other (ISRAEL Xiao) Critical Care Time(min): 35 LUISA CHILDERS MD Jul 06, 2024 22:06
[2024-07-07] VITALS (35 sets, daily range): BP systolic 91–145; BP diastolic 47–75; PULSE 47–62; RESP 9–20; TEMP 98.2–99; O2SAT 93–98
[2024-07-07 05:19] LABS: Basophils # (auto) 0 10 ^3/uL (0-0.2); Basophils % (auto) 0.2 % (0.0-2.0); Eosinophils # (auto) 0.1 10 ^3/uL (0-0.8); Eosinophils % (auto) 0.9 % (0.0-7.0); Hematocrit 36.1 % (36.0-46.0); Hemoglobin 11.9 g/dL (12.2-16.2); Lymphocytes % (auto) 24.9 % (10.0-50.0); Monocytes # (auto) 0.4 10 ^3/uL (0-1.3); Neutrophils # (auto) 5.4 10 ^3/uL (1.6-8.6); Nucleated Red Blood Cells % 0.1 %; Platelet Count (auto) 143 10^3/uL (140-450); Red Blood Cells 4.11 10^6/uL (4.0-5.20); Red Cell Distribution Width 14.8 % (11.8-14.3); White Blood Cell 7.9 10^3/uL (4.4-10.8)
[2024-07-07 05:36] LABS: Alanine Aminotransferase 20 U/L (7-40); Albumin 3.2 g/dL (3.2-4.8); Alkaline Phosphatase 97 U/L (46-116); Anion Gap 6 (5-15); BUN/Creatinine Ratio 21.1 (10.0-20.0); Blood Urea Nitrogen 16 mg/dL (9-23); Carbon Dioxide 27 mmol/L (20-31); Glucose 93 mg/dL (74-106); Potassium 3.6 mmol/L (3.5-5.1); Sodium 145 mmol/L (136-145)
[2024-07-07 05:42] LABS: Aspartate Aminotransferase 10 U/L (13-40); Bilirubin, Total 0.2 mg/dL (0.2-1.0); Calcium 8.2 mg/dL (8.7-10.4); Chloride 112 mmol/L (98-107); Total Protein 4.8 g/dL (5.7-8.2)
--- NOTE | 2024-07-07 09:10 | DVHPN2 ---
Progress Note - Dictate Date Seen: Jul 07, 2024 Medical Necessity Reason Pt with a Central, PICC or Fol: Yes The following are medically ne: Cowart Catheter Reason for cowart catheter: Strict I&O vital signs Vital Sign Date Time Temp Pulse Resp B/P (MAP) Pulse Ox O2 Delivery O2 Flow Rate FiO2 07/07/24 08:11 52 20 96 Nasal Cannula* 2 28 07/07/24 04:56 90/40 07/07/24 04:00 98.4 98.4 Total Intake and Output 07/06/24 07/06/24 07/07/24 15:00 23:00 07:00 Intake Total 530 ml 980 ml 880 ml Output Total 425 ml 450 ml Balance 530 ml 555 ml 430 ml medications Current Medications Medications Dose Ordered Sig/Damon Route Start Time Stop Time Status Last Admin Dose Admin Ondansetron HCl 4 mg Q4HP PRN IV 07/01/24 21:15 07/05/24 08:43 4 MG Atorvastatin Calcium 20 mg DAILY PO 07/02/24 10:00 07/06/24 09:18 20 MG Baclofen 10 mg Q8HP PRN PO 07/01/24 21:15 Hold 07/06/24 00:05 10 MG Clopidogrel Bisulfate 75 mg DAILY PO 07/02/24 10:00 07/06/24 09:17 75 MG Lidocaine 1 patch DAILY TOP 07/02/24 10:00 07/05/24 08:47 1 PATCH Gabapentin 300 mg Q8H PO 07/01/24 21:15 07/07/24 06:16 300 MG Paroxetine HCl 20 mg DAILY PO 07/02/24 10:00 07/06/24 09:18 20 MG Morphine Sulfate 4 mg Q4HPRN PRN IV 07/01/24 23:15 07/07/24 04:26 4 MG Albuterol 2.5 mg Q6HP PRN NEB 07/02/24 05:30 Mesalamine 800 mg TID PO 07/02/24 10:15 07/07/24 06:16 800 MG Diagnostic Test (Pha) 1 strip ACHS 07/03/24 17:00 07/07/24 06:32 1 STRIP Insulin Human Regular ACHS SC 07/03/24 17:00 07/06/24 22:04 2 UNITS Dextrose 50 ml UD PRN IV 07/03/24 12:45 Norepinephrine Bitartrate 250 ml @ 3.75 mls/hr Q24H IV 07/03/24 14:45 Pantoprazole Sodium 40 mg DAILY IV 07/05/24 10:00 07/06/24 09:14 40 MG Atropine Sulfate 0.5 mg Q4HPRN PRN IV 07/04/24 19:45 Enoxaparin Sodium 80 mg Q12HR SC 07/04/24 23:30 07/06/24 22:02 80 MG Aspirin 81 mg DAILY PO 07/05/24 10:00 07/06/24 09:17 81 MG Vancomycin HCl 125 mg QID PO 07/05/24 18:00 07/07/24 06:16 125 MG Saccharomyces Boulardii 250 mg DAILY PO 07/06/24 10:00 Cholestyramine Resin 4 gm DAILY@11 PO 07/06/24 11:00 07/06/24 12:45 4 GM Acetaminophen/ Hydrocodone Bitart 1 tab Q6HP PRN PO 07/06/24 10:00 07/07/24 00:59 1 TAB Methylprednisolone Sodium Succinate 20 mg DAILY IV 07/07/24 10:00 Sodium Chloride 1,000 ml @ 120 mls/hr Q8H20M IV 07/07/24 09:00 UNV laboratory and microbiology Laboratory Tests 07/07/24 05:03 Test 07/07/24 05:03 Range/Units Serum Glucose 93 74-106 mg/dL Assessment/Plan Patient is a 59-year-old female who originally presented to the hospital on July 01, 2024 for lower abdominal pain. She also had nausea and diarrhea that time of presentation. It is of note that the patient does have history of inflammatory bowel disease (ulcerative colitis/Crohn's disease) and presentation was assessed somehow related to the inflammatory bowel disease. Since arrival, the patient was intubated at that point and later extubated. She actually had some EGD also. Cardiology was involved (on July 05, 2024) for an episode of sinus bradycardia for which patient was temporarily on Isuprel drip. She mentions that she has been experiencing some chest tightness for the past 2 days also. She denies previous chest tightness. She is known to our practice from before. She does have history of HFpEF. She is being managed in BEE/ICU. She is found to have increased troponin and has been started on aspirin/Lovenox. She does have history of CVA and carotid disease. She has had carotid endarterectomy (right side) before. There is no previous history of coronary artery disease. Nuclear stress test of December 2021 had been nonrevealing. She is kept on aspirin/Plavix as outpatient (old CVA). Not in acute distress. No JVD. Mucosa is pink and dry. No carotid bruit. Lungs are clear to auscultation. Not using accessory muscles of breathing. Cardiac: Regular, no thrills/gallop. Abdomen is soft. Lower abdominal tenderness can be elicited. There is no rebound. Bowel sound is positive There was no gross mass/hepatomegaly. Extremities do not reveal edema. Dorsalis pedis is 2+ bilateral. Left-sided hemiparesis can somehow be observed. 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 She has had kidney stones/hydronephrosis/hydroureter before. Uses a walker for ambulation (secondary to old CVA). Echocardiogram of December 16, 2022 (performed in [facility]) revealed ejection fraction of 60%, mild TR and right ventricular systolic pressure of 27 mm Hg. Echocardiogram of October 18, 2023 reported ejection fraction 55-60%, mild MR/TR and right ventricular systolic pressure of 25 mm Echocardiogram of May 05, 2024 revealed ejection fraction of 50-55%, normal diastolic, trace MR/TR and right ventricular systolic pressure of 28 mm Hg Nuclear stress test of January 03, 2022 (performed as outpatient) revealed ejection fraction of 80% and no evidence for ischemia/scar. WBC: 9.1 - 7.1 - 12.9 - 12.2 - 6.9 - 6.4 - 7.9 D-dimer: 0.36 (within normal limits) Creatinine: 1.12 - 0.86 - 0.98 - 0.91 - 1.12 - 0.91 - 0.85 - 0.76 Potassium: 4.0 - 4.2 - 3.7 - 4.2 - 3.2 - 4.1 - 4.0 - 3.6 TSH: 1.91 BNP: 638.05 - 492.56 Troponin (high sensitive): 1283 - 1360 - 1105 - 1049 - 1247 Urine culture was positive for Gram-positive annika Urine toxicology was positive for opiates Stool was positive for CDT toxin Chest x-ray reported: IMPRESSION: 1. Endotracheal tube 2.7 cm above the dante. 2. Enteric tube in the stomach 3. Bibasilar areas of atelectasis or infiltrate. Repeat chest x-ray reported: IMPRESSION: Pulmonary venous congestion. CT of the head revealed: IMPRESSION: 1. No acute intracranial abnormality. CT of the abdomen and pelvis revealed: IMPRESSION: 1. There is no acute process in the abdomen and pelvis. 2. Scattered colonic diverticula without evidence of acute diverticulitis. 3. Stable fibroid uterus. EKG reveals sinus rhythm, nonspecific ST-T changes Tele reveals sinus bradycardia and later sinus rhythm Echocardiogram reported: Left ventricle: Left ventricle wall is normal-sized. LVEF is around 40%. Mild diffuse hypokinesis of left ventricle was seen. Right ventricle was normal-sized with normal systolic function. Both atria were normal-sized. Aortic valve was trileaflet. There was no aortic insufficiency/stenosis. There was trace mitral/tricuspid regurgitation. Pulmonary valve was not well visualized. IVC was dilated. Right ventricular systolic pressure was assessed at 30 mm Hg. There was no pericardial effusion. Patient is a 59-year-old female who originally presented with abdominal pain/nausea/diarrhea. Assessment of the presentation has been acute inflammatory bowel disease. Patient was intubated and later extubated for respiratory failure. Patient did have EGD which found gastritis. Patient did have an episode of sinus bradycardia which improved on Isuprel at 1st and later resolved (could it have been secondary to significant abdominal pain/vagal induced?). Patient is found to have abnormal troponin (relatively stable and peaked at 1360) with some chest discomfort. Presentation could be considered non-STEMI. Recognizing comorbidities and the significant abdominal pain during this presentation, stress-induced cardiomyopathy can not be ruled out. Echocardiogram has revealed decrease in systolic function (diffuse hypokinesis). Ischemic workup is suggested. Patient with repeated significant diarrhea (CDT colitis) and will postpone LHC for now. Abdominal pain Acute inflammatory bowel disease, exacerbation C-Diff Colitis UTI, complicated Acute respiratory failure, status post intubation, extubation Systolic heart failure, acute, new finding Abnormal troponin Non-STEMI Sinus bradycardia, resolved Intractable abdominal pain History of old CVA with left hemiparesis History of Crohn disease/ulcerative colitis Morbid obesity Constipation Hyperlipidemia Status post carotid endarterectomy Diverticular disease, history of Cardiac suggestion for management: Manage in ICU/BEE Follow-up electrolytes and kidney function tests and correct abnormalities. Keep potassium above 4 and magnesium above 2 Full anticoagulation (on Lovenox) for now Aspirin Ischemic workup/cardiac catheterization (as patient has significant diarrhea: it was postponed), in few days (after somehow improvement of diarrhea) Evaluation and management of abdominal pain/inflammatory bowel disease as per GI/primary team Evaluation and management of UTI as per primary team Evaluation and management of C-Diff Colitis as per primary team Pulmonary follow-up for recent history of acute respiratory failure Pain management as per primary team Further evaluation and management depends on the above and clinical course A total of 75 minutes was spent reviewing the patient record, examining the patient, making a diagnostic and therapeutic plan, discussing this plan with medical personnel, following up on diagnostic studies and following the patient for clinical stability excluding any and all procedures. At least 50% of this time was spent in direct, [id number] contact. Thank you for allowing me to participate in this patient's care. Further recommendations will depend on patient's clinical course. Please do not hesitate to contact me if you have any questions or concerns. This medical document was created using electronic medical record system with [employer] computerized dictation system. Although this document has been carefully reviewed, there may still be some phonetic and typographical errors. These areas are purely typographical due to the imperfection of the software programs, and do not reflect any compromise in the patient's medical care Dietary Evaluation Review Comments: 1. Would change diet order to CHO 60 gm/meal, Low Fiber/Residue diet 2. Document PO intakes after each meal 3. If PO is <50% of meals consistently, consider oral nutrition supplement Expected Outcomes/Goals: Achieve adequate oral intake. Plan discussed with: Patient, Other (nurse) BALTAZAR SOMMERS MD Jul 07, 2024 09:10
[2024-07-07] MEDS: methylPREDNISolone SOD SUCC 40 MG/ML VL IV SCH (09:30)
[2024-07-07] MEDS: SODIUM CHLORIDE 0.9% 1,000 ML IV SCH (12:17)
--- NOTE | 2024-07-07 12:31 | DVHPN2 ---
Progress Note Date Seen: Jul 07, 2024 Medical Necessity Reason Pt with a Central, PICC or Fol: Yes The following are medically ne: Cowart Catheter Reason for cowart catheter: Strict I&O Subjective Review of Systems: CVS:Normal, RESPIRATORY:Normal, GI:Normal Objective vital signs Vital Sign Date Time Temp Pulse Resp B/P (MAP) Pulse Ox O2 Delivery O2 Flow Rate FiO2 07/07/24 11:37 53 07/07/24 11:37 13 95 Nasal Cannula* 2 28 07/07/24 10:01 112/59 07/07/24 04:00 98.4 98.4 Total Intake and Output 07/06/24 07/06/24 07/07/24 14:59 22:59 06:59 Intake Total 530 ml 980 ml 880 ml Output Total 425 ml 450 ml Balance 530 ml 555 ml 430 ml medications Current Medications Medications Dose Ordered Sig/Damon Route Start Time Stop Time Status Last Admin Dose Admin Ondansetron HCl 4 mg Q4HP PRN IV 07/01/24 21:15 07/05/24 08:43 4 MG Atorvastatin Calcium 20 mg DAILY PO 07/02/24 10:00 07/07/24 09:29 20 MG Baclofen 10 mg Q8HP PRN PO 07/01/24 21:15 Hold 07/06/24 00:05 10 MG Clopidogrel Bisulfate 75 mg DAILY PO 07/02/24 10:00 07/07/24 09:29 75 MG Lidocaine 1 patch DAILY TOP 07/02/24 10:00 07/05/24 08:47 1 PATCH Gabapentin 300 mg Q8H PO 07/01/24 21:15 07/07/24 12:15 300 MG Paroxetine HCl 20 mg DAILY PO 07/02/24 10:00 07/07/24 09:29 20 MG Morphine Sulfate 4 mg Q4HPRN PRN IV 07/01/24 23:15 07/07/24 09:31 4 MG Albuterol 2.5 mg Q6HP PRN NEB 07/02/24 05:30 Mesalamine 800 mg TID PO 07/02/24 10:15 07/07/24 12:15 800 MG Diagnostic Test (Pha) 1 strip ACHS 07/03/24 17:00 07/07/24 12:15 1 STRIP Insulin Human Regular ACHS SC 07/03/24 17:00 07/06/24 22:04 2 UNITS Dextrose 50 ml UD PRN IV 07/03/24 12:45 Norepinephrine Bitartrate 250 ml @ 3.75 mls/hr Q24H IV 07/03/24 14:45 Pantoprazole Sodium 40 mg DAILY IV 07/05/24 10:00 07/07/24 09:29 40 MG Atropine Sulfate 0.5 mg Q4HPRN PRN IV 07/04/24 19:45 Enoxaparin Sodium 80 mg Q12HR SC 07/04/24 23:30 07/07/24 10:00 80 MG Aspirin 81 mg DAILY PO 07/05/24 10:00 07/07/24 09:29 81 MG Vancomycin HCl 125 mg QID PO 07/05/24 18:00 07/07/24 12:15 125 MG Saccharomyces Boulardii 250 mg DAILY PO 07/06/24 10:00 07/07/24 09:29 250 MG Cholestyramine Resin 4 gm DAILY@11 PO 07/06/24 11:00 07/06/24 12:45 4 GM Acetaminophen/ Hydrocodone Bitart 1 tab Q6HP PRN PO 07/06/24 10:00 07/07/24 12:15 1 TAB Methylprednisolone Sodium Succinate 20 mg DAILY IV 07/07/24 10:00 07/07/24 09:30 20 MG Sodium Chloride 1,000 ml @ 120 mls/hr Q8H20M IV 07/07/24 09:00 07/07/24 12:17 120 MLS/HR Examination: GENERAL:Normal, LUNGS:Normal, CVS:Normal, ABDOMEN:Normal, SKIN:Normal, NEURO:Normal laboratory and microbiology Laboratory Tests 07/07/24 05:03 Test 07/07/24 05:03 Range/Units Serum Glucose 93 74-106 mg/dL Microbiology Date/Time Source Procedure Growth Status 07/05/24 10:57 Blood Blood Culture - Preliminary NO GROWTH AFTER 48 HOURS OF INCUBATION. Resulted 07/04/24 10:41 Stool Clostridium difficile Toxin Assay - Final Complete 07/03/24 16:00 Sputum Gram Stain - Final Complete 07/03/24 16:00 Sputum Respiratory Culture - Final Complete 07/02/24 10:22 Voided Urine Urine Culture - Final Complete Labs and/or images reviewed: Labs reviewed by me, Image(s) reviewed by me Problem List/Assessment/Plan Problem List/Assessment/Plan 1. Recurrent UTI Monitor, send UA, IV abx 2. Acute on chronic ulcerative colitis Monitor, IV abx 3. Mixed hyperlipidemia Monitor, medications 4. DM II with hyperglycemia Monitor, insulin ss 5. S/p colectomy Monitor 6. Hx CVA with residual weakness Monitor, restart anticoagulation 7. CAD Monitor 8. c diff colitis oral vancomycin 9. NSTEMI LHC, cardiac consult, therapeutic Lovenox 10. Bradycardia Atropine 0.5 p.r.n. as needed Assessment/Plan Subjective: Patient is awake and alert. Objective: Patient was successfully extubated after aspirating and is respiratory harrison stable off ventilator. Patient had bronchoscopy 07/04 with bronchial washing. Patient was originally admitted for ulcerative colitis, patient was found to have C diff colitis and was placed on oral vancomycin. Patient is having multiple episodes of diarrhea secondary to C diff. patient was subsequently found to have elevated troponin which have Peaked at 1360. Patient was seen by Dr. Sabillon we will be planning for left heart catheterization on Sunday, patient was subsequently placed on therapeutic Lovenox. Patient was found to be bradycardic and can receive atropine as need for HR below 40. Plan: continue oral vancomycin and stop Flagyl IV. Plan for left heart catheterization per Dr. Sabillon on Sunday Continue insulin sliding scale for diabetes. Monitor for airway aspiration, advance diet as tolerated. await blood cultures. Continue with gentle IV fluid hydration, downgrade to tele Plan discussed with: Patient My Orders My Orders Orders - TAMI ROOT Procedure Category Date Status Time Electrocardigram EKG 07/07/24 Logged 09:42 Pt Request For Service PT 07/07/24 Logged 10:05 Transfer Orders XFER 07/07/24 Transmitted 12:08 Dietary Evaluation Review Comments: 1. Would change diet order to CHO 60 gm/meal, Low Fiber/Residue diet 2. Document PO intakes after each meal 3. If PO is <50% of meals consistently, consider oral nutrition supplement Expected Outcomes/Goals: Achieve adequate oral intake. Date of Service: Jul 07, 2024 Billing Provider: CAL MARTINO MD Common Visit Codes: [id number] INP/OBS CARE (MOD) TAMI ROOT Jul 07, 2024 12:31
--- NOTE | 2024-07-07 19:20 | DVHPN2 ---
Progress Note - Dictate Date Seen: Jul 07, 2024 Medical Necessity Reason Pt with a Central, PICC or Fol: Yes The following are medically ne: Cowart Catheter Reason for cowart catheter: Strict I&O Subjective Patient seen and examined at bedside. Remains on supplemental oxygen Overnight events reviewed. vital signs Vital Sign Date Time Temp Pulse Resp B/P (MAP) Pulse Ox O2 Delivery O2 Flow Rate FiO2 07/07/24 18:16 98 Nasal Cannula* 2 28 07/07/24 18:00 98.7 52 9 98.7 Total Intake and Output 07/06/24 07/06/24 07/07/24 15:00 23:00 07:00 Intake Total 530 ml 980 ml 880 ml Output Total 425 ml 450 ml Balance 530 ml 555 ml 430 ml medications Current Medications Medications Dose Ordered Sig/Damon Route Start Time Stop Time Status Last Admin Dose Admin Ondansetron HCl 4 mg Q4HP PRN IV 07/01/24 21:15 07/05/24 08:43 4 MG Atorvastatin Calcium 20 mg DAILY PO 07/02/24 10:00 07/07/24 09:29 20 MG Baclofen 10 mg Q8HP PRN PO 07/01/24 21:15 Hold 07/06/24 00:05 10 MG Clopidogrel Bisulfate 75 mg DAILY PO 07/02/24 10:00 07/07/24 09:29 75 MG Lidocaine 1 patch DAILY TOP 07/02/24 10:00 07/05/24 08:47 1 PATCH Gabapentin 300 mg Q8H PO 07/01/24 21:15 07/07/24 12:15 300 MG Paroxetine HCl 20 mg DAILY PO 07/02/24 10:00 07/07/24 09:29 20 MG Morphine Sulfate 4 mg Q4HPRN PRN IV 07/01/24 23:15 07/07/24 13:41 4 MG Albuterol 2.5 mg Q6HP PRN NEB 07/02/24 05:30 Mesalamine 800 mg TID PO 07/02/24 10:15 07/07/24 12:15 800 MG Diagnostic Test (Pha) 1 strip ACHS 07/03/24 17:00 07/07/24 17:04 1 STRIP Insulin Human Regular ACHS SC 07/03/24 17:00 07/06/24 22:04 2 UNITS Dextrose 50 ml UD PRN IV 07/03/24 12:45 Norepinephrine Bitartrate 250 ml @ 3.75 mls/hr Q24H IV 07/03/24 14:45 Pantoprazole Sodium 40 mg DAILY IV 07/05/24 10:00 07/07/24 09:29 40 MG Atropine Sulfate 0.5 mg Q4HPRN PRN IV 07/04/24 19:45 Enoxaparin Sodium 80 mg Q12HR SC 07/04/24 23:30 07/07/24 10:00 80 MG Aspirin 81 mg DAILY PO 07/05/24 10:00 07/07/24 09:29 81 MG Vancomycin HCl 125 mg QID PO 07/05/24 18:00 07/07/24 17:04 125 MG Saccharomyces Boulardii 250 mg DAILY PO 07/06/24 10:00 07/07/24 09:29 250 MG Cholestyramine Resin 4 gm DAILY@11 PO 07/06/24 11:00 07/06/24 12:45 4 GM Acetaminophen/ Hydrocodone Bitart 1 tab Q6HP PRN PO 07/06/24 10:00 07/07/24 12:15 1 TAB Methylprednisolone Sodium Succinate 20 mg DAILY IV 07/07/24 10:00 07/07/24 09:30 20 MG Sodium Chloride 1,000 ml @ 120 mls/hr Q8H20M IV 07/07/24 09:00 07/07/24 17:04 120 MLS/HR objective Gen.: Patient lying in bed in no apparent distress. On supplemental oxygen. Head: Normocephalic, atraumatic. Eyes: EOMI/PERRLA. Ears: Normal hearing. Normal anatomy. Neck/trachea: Trachea midline, supple. Nose: Normal external anatomy. Mouth: Moist mucous membranes. Chest: Decreased air entry bilaterally. No wheezing or rhonchi. Cardiovascular: Positive S1, positive S2. Regular rate and rhythm. Abdomen: Positive bowel sounds in all 4 quadrants. Soft, non-tender, non- distended. : Deferred. Rectal: Deferred. Skin: Warm, dry. Intact. Extremities: 2+ radial pulses bilaterally. No lower extremity edema. Neuro: Awake, alert, oriented x3. No gross motor or sensory deficits. Cranial nerves II through XII intact. Gait not assessed. laboratory and microbiology Laboratory Tests 07/07/24 05:03 Test 07/07/24 05:03 Range/Units Serum Glucose 93 74-106 mg/dL Assessment/Plan mpression: Respiratory distress, resolved Ruled out foreign body Asthma exacerbation Obesity Wheezing Urinary tract infection S/p colectomy Acute on chronic ulcerative colitis. Events: Remains on supplemental oxygen, 2 LPM NC Taper O2 as tolerated Bradycardia Plan for left heart catheterization on Sunday Cardiology recs appreciated Positive C. difficile Continue antibiotics, PO Vancomycin ID recs appreciated. Monitor blood pressure IS. Pain control Avoid oversedation Protonix for GI prophylaxis Labs and imaging reviewed. Rest of plan as noted below. Plan: S/p extubation on 07/04/24 Supplemental oxygen Titrate to keep O2 sats above 92%. S/p bronchoscopy on 07/03, no evidence of foreign body in the lung. Scant bilateral lower lobe secretions were noted. Patient tolerated the procedure well. Received IV steroids Continue antibiotics. Bronchodilators PRN Pressors as necessary for hemodynamic support Titrate to keep mean arterial pressure greater than 65 mmHg. Pain control Avoid oversedation Surgery recs appreciated. Monitor renal function Monitor electrolytes. Supplement as necessary. Monitor ins and outs. Diet and lifestyle modifications for weight reduction Obesity - complicates all care DVT prophylaxis - Lovenox SC. Prognosis: Poor given patient's multiple co-morbidities. Rest of plan per hospitalist and other consultants. Thank you, Dr. Hylton, for allowing me to participate in this patient's care. Further recommendations will depend on the patient's clinical course. Please do not hesitate to contact me if you have any questions or concerns. This medical document was created using an electronic medical record system with [employer] dictation system. Although these documentations are being carefully reviewed, there may still be some phonetic and typographical changes. The errors are purely typographical, due to imperfection on the software program, and do not reflect any compromise in the patient's medical care. Dietary Evaluation Review Comments: 1. Would change diet order to CHO 60 gm/meal, Low Fiber/Residue diet 2. Document PO intakes after each meal 3. If PO is <50% of meals consistently, consider oral nutrition supplement Expected Outcomes/Goals: Achieve adequate oral intake. Plan discussed with: Patient, Other ([place] Jane) LUISA CHIDLERS MD Jul 07, 2024 19:20
[2024-07-08] VITALS (9 sets, daily range): BP systolic 101–145; BP diastolic 50–81; PULSE 50–73; RESP 17–18; TEMP 97.3–98.7; O2SAT 94–100
[2024-07-08 06:12] LABS: Basophils # (auto) 0 10 ^3/uL (0-0.2); Basophils % (auto) 0.4 % (0.0-2.0); Eosinophils # (auto) 0.1 10 ^3/uL (0-0.8); Eosinophils % (auto) 1.5 % (0.0-7.0); Hematocrit 37.1 % (36.0-46.0); Hemoglobin 12.7 g/dL (12.2-16.2); Lymphocytes # (auto) 2.1 10 ^3/uL (0.4-5.4); Lymphocytes % (auto) 27.1 % (10.0-50.0); Mean Corpuscular Hemoglobin 30.2 pg (28.0-32.0); Mean Corpuscular Hgb Conc. 34.1 g/dL (32.0-36.0); Mean Corpuscular Volume 88.4 fL (80.0-100.0); Monocytes # (auto) 0.3 10 ^3/uL (0-1.3); Monocytes % (auto) 4.2 % (0.0-12.0); Neutrophils # (auto) 5.2 10 ^3/uL (1.6-8.6); Neutrophils % (auto) 66.8 % (37.0-80.0); Nucleated Red Blood Cells % 0.4 %; Platelet Count (auto) 153 10^3/uL (140-450); Red Cell Distribution Width 14.5 % (11.8-14.3); White Blood Cell 7.8 10^3/uL (4.4-10.8)
[2024-07-08 06:33] LABS: Alanine Aminotransferase 17 U/L (7-40); Albumin 3.4 g/dL (3.2-4.8); Alkaline Phosphatase 92 U/L (46-116); Anion Gap 7 (5-15); BUN/Creatinine Ratio 14.1 (10.0-20.0); Bilirubin, Total 0.3 mg/dL (0.2-1.0); Carbon Dioxide 27 mmol/L (20-31); Glucose 86 mg/dL (74-106); Magnesium 2.2 mg/dL (1.6-2.6); Potassium 3.5 mmol/L (3.5-5.1); Sodium 143 mmol/L (136-145)
[2024-07-08 06:39] LABS: Aspartate Aminotransferase 11 U/L (13-40); Blood Urea Nitrogen 9 mg/dL (9-23); Calcium 8.4 mg/dL (8.7-10.4); Chloride 109 mmol/L (98-107)
--- NOTE | 2024-07-08 07:07 | DVHPN2 ---
Progress Note - Dictate Date Seen: Jul 08, 2024 Medical Necessity Reason Pt with a Central, PICC or Fol: Yes The following are medically ne: Cowart Catheter Reason for cowart catheter: Strict I&O vital signs Vital Sign Date Time Temp Pulse Resp B/P (MAP) Pulse Ox O2 Delivery O2 Flow Rate FiO2 07/08/24 06:58 56 16 126/67 07/08/24 05:00 97.3 100 97.3 07/07/24 22:00 Nasal Cannula* 2 28 Total Intake and Output 07/07/24 07/07/24 07/08/24 15:00 23:00 07:00 Intake Total 460 ml 720 ml Output Total 650 ml Balance 460 ml 70 ml medications Current Medications Medications Dose Ordered Sig/Damon Route Start Time Stop Time Status Last Admin Dose Admin Ondansetron HCl 4 mg Q4HP PRN IV 07/01/24 21:15 07/05/24 08:43 4 MG Atorvastatin Calcium 20 mg DAILY PO 07/02/24 10:00 07/07/24 09:29 20 MG Baclofen 10 mg Q8HP PRN PO 07/01/24 21:15 Hold 07/06/24 00:05 10 MG Clopidogrel Bisulfate 75 mg DAILY PO 07/02/24 10:00 07/07/24 09:29 75 MG Lidocaine 1 patch DAILY TOP 07/02/24 10:00 07/05/24 08:47 1 PATCH Gabapentin 300 mg Q8H PO 07/01/24 21:15 07/08/24 05:39 300 MG Paroxetine HCl 20 mg DAILY PO 07/02/24 10:00 07/07/24 09:29 20 MG Morphine Sulfate 4 mg Q4HPRN PRN IV 07/01/24 23:15 07/08/24 06:58 4 MG Albuterol 2.5 mg Q6HP PRN NEB 07/02/24 05:30 Mesalamine 800 mg TID PO 07/02/24 10:15 07/08/24 05:39 800 MG Diagnostic Test (Pha) 1 strip ACHS 07/03/24 17:00 07/08/24 06:49 1 STRIP Insulin Human Regular ACHS SC 07/03/24 17:00 07/07/24 21:47 4 UNITS Dextrose 50 ml UD PRN IV 07/03/24 12:45 Norepinephrine Bitartrate 250 ml @ 3.75 mls/hr Q24H IV 07/03/24 14:45 Pantoprazole Sodium 40 mg DAILY IV 07/05/24 10:00 07/07/24 09:29 40 MG Atropine Sulfate 0.5 mg Q4HPRN PRN IV 07/04/24 19:45 Enoxaparin Sodium 80 mg Q12HR SC 07/04/24 23:30 07/07/24 21:34 80 MG Aspirin 81 mg DAILY PO 07/05/24 10:00 07/07/24 09:29 81 MG Vancomycin HCl 125 mg QID PO 07/05/24 18:00 07/08/24 05:39 125 MG Saccharomyces Boulardii 250 mg DAILY PO 07/06/24 10:00 07/07/24 09:29 250 MG Cholestyramine Resin 4 gm DAILY@11 PO 07/06/24 11:00 07/06/24 12:45 4 GM Acetaminophen/ Hydrocodone Bitart 1 tab Q6HP PRN PO 07/06/24 10:00 07/07/24 12:15 1 TAB Methylprednisolone Sodium Succinate 20 mg DAILY IV 07/07/24 10:00 07/07/24 09:30 20 MG Sodium Chloride 1,000 ml @ 120 mls/hr Q8H20M IV 07/07/24 09:00 07/08/24 02:00 120 MLS/HR laboratory and microbiology Laboratory Tests 07/08/24 05:06 Test 07/08/24 05:06 Range/Units Serum Glucose 86 74-106 mg/dL Assessment/Plan Patient is a 59-year-old female who originally presented to the hospital on July 01, 2024 for lower abdominal pain. She also had nausea and diarrhea that time of presentation. It is of note that the patient does have history of inflammatory bowel disease (ulcerative colitis/Crohn's disease) and presentation was assessed somehow related to the inflammatory bowel disease. Since arrival, the patient was intubated at that point and later extubated. She actually had some EGD also. Cardiology was involved (on July 05, 2024) for an episode of sinus bradycardia for which patient was temporarily on Isuprel drip. She mentions that she has been experiencing some chest tightness for the past 2 days also. She denies previous chest tightness. She is known to our practice from before. She does have history of HFpEF. She is being managed in BEE/ICU. She is found to have increased troponin and has been started on aspirin/Lovenox. She does have history of CVA and carotid disease. She has had carotid endarterectomy (right side) before. There is no previous history of coronary artery disease. Nuclear stress test of December 2021 had been nonrevealing. She is kept on aspirin/Plavix as outpatient (old CVA). Not in acute distress. No JVD. Mucosa is pink and dry. No carotid bruit. Lungs are clear to auscultation. Not using accessory muscles of breathing. Cardiac: Regular, no thrills/gallop. Abdomen is soft. Lower abdominal tenderness can be elicited. There is no rebound. Bowel sound is positive There was no gross mass/hepatomegaly. Extremities do not reveal edema. Dorsalis pedis is 2+ bilateral. Left-sided hemiparesis can somehow be observed. 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 She has had kidney stones/hydronephrosis/hydroureter before. Uses a walker for ambulation (secondary to old CVA). Echocardiogram of December 16, 2022 (performed in [facility]) revealed ejection fraction of 60%, mild TR and right ventricular systolic pressure of 27 mm Hg. Echocardiogram of October 18, 2023 reported ejection fraction 55-60%, mild MR/TR and right ventricular systolic pressure of 25 mm Echocardiogram of May 05, 2024 revealed ejection fraction of 50-55%, normal diastolic, trace MR/TR and right ventricular systolic pressure of 28 mm Hg Nuclear stress test of January 03, 2022 (performed as outpatient) revealed ejection fraction of 80% and no evidence for ischemia/scar. TSH: 1.91 BNP: 638.05 - 492.56 Troponin (high sensitive): 1283 - 1360 - 1105 - 1049 - 1247 Urine culture was positive for Gram-positive annika Urine toxicology was positive for opiates Stool was positive for CDT toxin Chest x-ray reported: IMPRESSION: 1. Endotracheal tube 2.7 cm above the dante. 2. Enteric tube in the stomach 3. Bibasilar areas of atelectasis or infiltrate. Repeat chest x-ray reported: IMPRESSION: Pulmonary venous congestion. CT of the head revealed: IMPRESSION: 1. No acute intracranial abnormality. CT of the abdomen and pelvis revealed: IMPRESSION: 1. There is no acute process in the abdomen and pelvis. 2. Scattered colonic diverticula without evidence of acute diverticulitis. 3. Stable fibroid uterus. EKG reveals sinus rhythm, nonspecific ST-T changes Tele reveals sinus bradycardia and later sinus rhythm Echocardiogram reported: Left ventricle: Left ventricle wall is normal-sized. LVEF is around 40%. Mild diffuse hypokinesis of left ventricle was seen. Right ventricle was normal-sized with normal systolic function. Both atria were normal-sized. Aortic valve was trileaflet. There was no aortic insufficiency/stenosis. There was trace mitral/tricuspid regurgitation. Pulmonary valve was not well visualized. IVC was dilated. Right ventricular systolic pressure was assessed at 30 mm Hg. There was no pericardial effusion. Patient is a 59-year-old female who originally presented with abdominal pain/nausea/diarrhea. Assessment of the presentation has been acute inflammatory bowel disease. Patient was intubated and later extubated for respiratory failure. Patient did have EGD which found gastritis. Patient did have an episode of sinus bradycardia which improved on Isuprel at 1st and later resolved (could it have been secondary to significant abdominal pain/vagal induced?). Patient is found to have abnormal troponin (relatively stable and peaked at 1360) with some chest discomfort. Presentation could be considered non-STEMI. Recognizing comorbidities and the significant abdominal pain during this presentation, stress-induced cardiomyopathy can not be ruled out. Echocardiogram has revealed decrease in systolic function (diffuse hypokinesis). Ischemic workup is suggested. Patient with repeated significant diarrhea (CDT colitis) and will postpone [facility] for now. Abdominal pain Acute inflammatory bowel disease, exacerbation C-Diff Colitis UTI, complicated Acute respiratory failure, status post intubation, extubation Systolic heart failure, acute, new finding Abnormal troponin Non-STEMI Sinus bradycardia, resolved Intractable abdominal pain History of old CVA with left hemiparesis History of Crohn disease/ulcerative colitis Morbid obesity Constipation Hyperlipidemia Status post carotid endarterectomy Diverticular disease, history of Cardiac suggestion for management: Manage in tele Follow-up electrolytes and kidney function tests and correct abnormalities. Keep potassium above 4 and magnesium above 2 Full anticoagulation (on Lovenox) for now Aspirin Ischemic workup/cardiac catheterization (as patient has significant diarrhea: it was postponed), tentatively tomorrow afternoon Evaluation and management of abdominal pain/inflammatory bowel disease as per GI/primary team Evaluation and management of UTI as per primary team Evaluation and management of C-Diff Colitis as per primary team Pulmonary follow-up for recent history of acute respiratory failure Pain management as per primary team Further evaluation and management depends on the above and clinical course A total of 55 minutes was spent reviewing the patient record, examining the patient, making a diagnostic and therapeutic plan, discussing this plan with medical personnel, following up on diagnostic studies and following the patient for clinical stability excluding any and all procedures. At least 50% of this time was spent in direct, [id number] contact. Thank you for allowing me to participate in this patient's care. Further recommendations will depend on patient's clinical course. Please do not hesitate to contact me if you have any questions or concerns. This medical document was created using electronic medical record system with [employer] computerized dictation system. Although this document has been carefully reviewed, there may still be some phonetic and typographical errors. These areas are purely typographical due to the imperfection of the software programs, and do not reflect any compromise in the patient's medical care Dietary Evaluation Review Comments: 1. Would change diet order to CHO 60 gm/meal, Low Fiber/Residue diet 2. Document PO intakes after each meal 3. If PO is <50% of meals consistently, consider oral nutrition supplement Expected Outcomes/Goals: Achieve adequate oral intake. Plan discussed with: Patient, Other BALTAZAR SOMMERS MD Jul 08, 2024 07:07
--- NOTE | 2024-07-08 07:51 | ECG ---
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
--- NOTE | 2024-07-08 11:12 | DVHPN2 ---
Progress Note Date Seen: Jul 08, 2024 Medical Necessity Reason Pt with a Central, PICC or Fol: Yes The following are medically ne: Cowart Catheter Reason for cowart catheter: Strict I&O Subjective Patient reports: No new complaints Review of Systems: CVS:Normal, RESPIRATORY:Normal, GI:Normal, NEURO:Normal Objective vital signs Vital Sign Date Time Temp Pulse Resp B/P (MAP) Pulse Ox O2 Delivery O2 Flow Rate FiO2 07/08/24 09:14 50 17 101/50 98 2.0 28 07/08/24 09:13 98.7 98.7 07/07/24 22:00 Nasal Cannula* Total Intake and Output 07/07/24 07/07/24 07/08/24 15:00 23:00 07:00 Intake Total 460 ml 720 ml Output Total 650 ml Balance 460 ml 70 ml medications Current Medications Medications Dose Ordered Sig/Damon Route Start Time Stop Time Status Last Admin Dose Admin Ondansetron HCl 4 mg Q4HP PRN IV 07/01/24 21:15 07/05/24 08:43 4 MG Atorvastatin Calcium 20 mg DAILY PO 07/02/24 10:00 07/08/24 10:15 20 MG Baclofen 10 mg Q8HP PRN PO 07/01/24 21:15 Hold 07/06/24 00:05 10 MG Clopidogrel Bisulfate 75 mg DAILY PO 07/02/24 10:00 07/08/24 10:15 75 MG Lidocaine 1 patch DAILY TOP 07/02/24 10:00 07/05/24 08:47 1 PATCH Gabapentin 300 mg Q8H PO 07/01/24 21:15 07/08/24 05:39 300 MG Paroxetine HCl 20 mg DAILY PO 07/02/24 10:00 07/08/24 10:15 20 MG Morphine Sulfate 4 mg Q4HPRN PRN IV 07/01/24 23:15 07/08/24 06:58 4 MG Albuterol 2.5 mg Q6HP PRN NEB 07/02/24 05:30 Mesalamine 800 mg TID PO 07/02/24 10:15 07/08/24 05:39 800 MG Diagnostic Test (Pha) 1 strip ACHS 07/03/24 17:00 07/08/24 06:49 1 STRIP Insulin Human Regular ACHS SC 07/03/24 17:00 07/07/24 21:47 4 UNITS Dextrose 50 ml UD PRN IV 07/03/24 12:45 Norepinephrine Bitartrate 250 ml @ 3.75 mls/hr Q24H IV 07/03/24 14:45 Pantoprazole Sodium 40 mg DAILY IV 07/05/24 10:00 07/08/24 10:14 40 MG Atropine Sulfate 0.5 mg Q4HPRN PRN IV 07/04/24 19:45 Enoxaparin Sodium 80 mg Q12HR SC 07/04/24 23:30 07/08/24 10:16 80 MG Aspirin 81 mg DAILY PO 07/05/24 10:00 07/08/24 10:14 81 MG Vancomycin HCl 125 mg QID PO 07/05/24 18:00 07/08/24 05:39 125 MG Saccharomyces Boulardii 250 mg DAILY PO 07/06/24 10:00 07/08/24 10:15 250 MG Cholestyramine Resin 4 gm DAILY@11 PO 07/06/24 11:00 07/06/24 12:45 4 GM Acetaminophen/ Hydrocodone Bitart 1 tab Q6HP PRN PO 07/06/24 10:00 07/07/24 12:15 1 TAB Methylprednisolone Sodium Succinate 20 mg DAILY IV 07/07/24 10:00 07/08/24 10:14 20 MG Sodium Chloride 1,000 ml @ 120 mls/hr Q8H20M IV 07/07/24 09:00 07/08/24 10:13 120 MLS/HR Examination: GENERAL:Normal, LUNGS:Normal, CVS:Normal, ABDOMEN:Normal, SKIN:Abnormal laboratory and microbiology Laboratory Tests 07/08/24 05:06 Test 07/08/24 05:06 Range/Units Serum Glucose 86 74-106 mg/dL Microbiology Date/Time Source Procedure Growth Status 07/05/24 10:57 Blood Blood Culture - Preliminary NO GROWTH AFTER 48 HOURS OF INCUBATION. Resulted 07/04/24 10:41 Stool Clostridium difficile Toxin Assay - Final Complete 07/03/24 16:00 Sputum Gram Stain - Final Complete 07/03/24 16:00 Sputum Respiratory Culture - Final Complete 07/02/24 10:22 Voided Urine Urine Culture - Final Complete Labs and/or images reviewed: Labs reviewed by me, Image(s) reviewed by me Problem List/Assessment/Plan Problem List/Assessment/Plan 1. Recurrent UTI Monitor, send UA, IV abx 2. Acute on chronic ulcerative colitis Monitor, IV abx 3. Mixed hyperlipidemia Monitor, medications 4. DM II with hyperglycemia Monitor, insulin ss 5. S/p colectomy Monitor 6. Hx CVA with residual weakness Monitor, restart anticoagulation 7. CAD Monitor 8. c diff colitis oral vancomycin 9. NSTEMI LHC, cardiac consult, therapeutic Lovenox 10. Bradycardia Atropine 0.5 p.r.n. as needed Assessment/Plan Subjective: Patient is awake and alert. Objective: Patient was successfully extubated after aspirating and is respiratory harrison stable off ventilator. Patient had bronchoscopy 07/04 with bronchial washing. Patient was originally admitted for ulcerative colitis, patient was found to have C diff colitis and was placed on oral vancomycin. Today patient reports some improvement in diarrhea. Patient was subsequently found to have elevated troponin which have Peaked at 1360. Patient was seen by Dr. Sabillon we will be planning for left heart catheterization on Sunday, patient was subsequently placed on therapeutic Lovenox. Patient was found to be bradycardic and can receive atropine as need for HR below 40. Plan: continue oral vancomycin and stop Flagyl IV. Plan for left heart catheterization per Dr. Sabillon on Sunday Continue insulin sliding scale for diabetes. Monitor for airway aspiration, advance diet as tolerated. Continue with gentle IV fluid hydration, downgrade to tele Plan discussed with: Patient My Orders My Orders Orders - TAMI ROOT Procedure Category Date Status Time Transfer Orders XFER 07/07/24 Transmitted 12:08 Dietary Evaluation Review Comments: 1. Would change diet order to CHO 60 gm/meal, Low Fiber/Residue diet 2. Document PO intakes after each meal 3. If PO is <50% of meals consistently, consider oral nutrition supplement Expected Outcomes/Goals: Achieve adequate oral intake. Date of Service: Jul 08, 2024 Billing Provider: CAL MARTINO MD Common Visit Codes: [id number] INP/OBS CARE (MOD) TAMI ROOT Jul 08, 2024 11:12
--- NOTE | 2024-07-08 16:29 | ECG ---
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
--- NOTE | 2024-07-08 21:09 | DVHPN2 ---
Progress Note - Dictate Date Seen: Jul 08, 2024 Medical Necessity Reason Pt with a Central, PICC or Fol: Yes The following are medically ne: Cowart Catheter Reason for cowart catheter: Strict I&O Subjective Patient seen and examined at bedside. Remains on supplemental oxygen Overnight events reviewed. vital signs Vital Sign Date Time Temp Pulse Resp B/P (MAP) Pulse Ox O2 Delivery O2 Flow Rate FiO2 07/08/24 16:43 98.3 61 17 116/77 (90) 95 98.3 07/08/24 13:07 Nasal Cannula 2.0 07/08/24 13:07 28 Total Intake and Output 07/07/24 07/07/24 07/08/24 15:00 23:00 07:00 Intake Total 460 ml 720 ml Output Total 650 ml Balance 460 ml 70 ml medications Current Medications Medications Dose Ordered Sig/Damon Route Start Time Stop Time Status Last Admin Dose Admin Ondansetron HCl 4 mg Q4HP PRN IV 07/01/24 21:15 07/05/24 08:43 4 MG Atorvastatin Calcium 20 mg DAILY PO 07/02/24 10:00 07/08/24 10:15 20 MG Baclofen 10 mg Q8HP PRN PO 07/01/24 21:15 Hold 07/06/24 00:05 10 MG Clopidogrel Bisulfate 75 mg DAILY PO 07/02/24 10:00 07/08/24 10:15 75 MG Lidocaine 1 patch DAILY TOP 07/02/24 10:00 07/08/24 12:52 1 PATCH Gabapentin 300 mg Q8H PO 07/01/24 21:15 07/08/24 12:52 300 MG Paroxetine HCl 20 mg DAILY PO 07/02/24 10:00 07/08/24 10:15 20 MG Albuterol 2.5 mg Q6HP PRN NEB 07/02/24 05:30 Mesalamine 800 mg TID PO 07/02/24 10:15 07/08/24 16:13 800 MG Diagnostic Test (Pha) 1 strip ACHS 07/03/24 17:00 07/08/24 17:00 1 STRIP Insulin Human Regular ACHS SC 07/03/24 17:00 07/08/24 17:00 4 UNITS Dextrose 50 ml UD PRN IV 07/03/24 12:45 Pantoprazole Sodium 40 mg DAILY IV 07/05/24 10:00 07/08/24 10:14 40 MG Atropine Sulfate 0.5 mg Q4HPRN PRN IV 07/04/24 19:45 Enoxaparin Sodium 80 mg Q12HR SC 07/04/24 23:30 07/08/24 10:16 80 MG Aspirin 81 mg DAILY PO 07/05/24 10:00 07/08/24 10:14 81 MG Vancomycin HCl 125 mg QID PO 07/05/24 18:00 07/08/24 17:40 125 MG Saccharomyces Boulardii 250 mg DAILY PO 07/06/24 10:00 07/08/24 10:15 250 MG Cholestyramine Resin 4 gm DAILY@11 PO 07/06/24 11:00 07/08/24 12:52 4 GM Acetaminophen/ Hydrocodone Bitart 1 tab Q6HP PRN PO 07/06/24 10:00 07/08/24 17:41 1 TAB Methylprednisolone Sodium Succinate 20 mg DAILY IV 07/07/24 10:00 07/08/24 10:14 20 MG Sodium Chloride 1,000 ml @ 120 mls/hr Q8H20M IV 07/07/24 09:00 07/08/24 18:20 120 MLS/HR objective Gen.: Patient lying in bed in no apparent distress. On supplemental oxygen. Head: Normocephalic, atraumatic. Eyes: EOMI/PERRLA. Ears: Normal hearing. Normal anatomy. Neck/trachea: Trachea midline, supple. Nose: Normal external anatomy. Mouth: Moist mucous membranes. Chest: Decreased air entry bilaterally. No wheezing or rhonchi. Cardiovascular: Positive S1, positive S2. Regular rate and rhythm. Abdomen: Positive bowel sounds in all 4 quadrants. Soft, non-tender, non- distended. : Deferred. Rectal: Deferred. Skin: Warm, dry. Intact. Extremities: 2+ radial pulses bilaterally. No lower extremity edema. Neuro: Awake, alert, oriented x3. No gross motor or sensory deficits. Cranial nerves II through XII intact. Gait not assessed. laboratory and microbiology Laboratory Tests 07/08/24 05:06 Test 07/08/24 05:06 Range/Units Serum Glucose 86 74-106 mg/dL Assessment/Plan mpression: Respiratory distress, resolved Ruled out foreign body Asthma exacerbation Obesity Wheezing Urinary tract infection S/p colectomy Acute on chronic ulcerative colitis. Events: Remains on supplemental oxygen, 2 LPM NC Taper O2 as tolerated Head of bed elevation Aspiration precautions Bradycardia Plan for left heart catheterization tomorrow Cardiology recs appreciated Positive C. difficile Continue antibiotics, PO Vancomycin ID recs appreciated. IV steroids Continue bronchodilators IS. Therapeutic Lovenox Accu-Cheks, ISS. Monitor blood pressure Pain control Avoid oversedation Protonix for GI prophylaxis Labs and imaging reviewed. Rest of plan as noted below. Plan: S/p extubation on 07/04/24 Supplemental oxygen Titrate to keep O2 sats above 92%. S/p bronchoscopy on 07/03, no evidence of foreign body in the lung. Scant bilateral lower lobe secretions were noted. Patient tolerated the procedure well. IV steroids Continue antibiotics. Bronchodilators PRN Pressors as necessary for hemodynamic support Titrate to keep mean arterial pressure greater than 65 mmHg. Pain control Avoid oversedation Surgery recs appreciated. Monitor renal function Monitor electrolytes. Supplement as necessary. Monitor ins and outs. Diet and lifestyle modifications for weight reduction Obesity - complicates all care DVT prophylaxis - Lovenox SC. Prognosis: Poor given patient's multiple co-morbidities. Rest of plan per hospitalist and other consultants. Thank you, Dr. Hylton, for allowing me to participate in this patient's care. Further recommendations will depend on the patient's clinical course. Please do not hesitate to contact me if you have any questions or concerns. This medical document was created using an electronic medical record system with [employer] dictation system. Although these documentations are being carefully reviewed, there may still be some phonetic and typographical changes. The errors are purely typographical, due to imperfection on the software program, and do not reflect any compromise in the patient's medical care. Dietary Evaluation Review Comments: 1. Would change diet order to CHO 60 gm/meal, Low Fiber/Residue diet 2. Document PO intakes after each meal 3. If PO is <50% of meals consistently, consider oral nutrition supplement Expected Outcomes/Goals: Achieve adequate oral intake. Plan discussed with: Patient, Other ([place]RA[place] Joy) LUISA CHILDERS MD Jul 08, 2024 21:09
--- NOTE | 2024-07-08 21:26 | DVHPN2 ---
Progress Note - Dictate Date Seen: Jul 08, 2024 Medical Necessity Reason Pt with a Central, PICC or Fol: Yes The following are medically ne: Cowart Catheter Reason for cowart catheter: Strict I&O Subjective No new complaints ; patient awake alert She is tolerating a diet Mild generalized abdominal pain requiring Morphine! Mild sinus bradycardia Patient had 1 loose bowel movements today but there was no bleeding Stool for C diff was positive, patient has been started on oral vancomycin Last colonoscopy about a year ago at [facility] vital signs Vital Sign Date Time Temp Pulse Resp B/P (MAP) Pulse Ox O2 Delivery O2 Flow Rate FiO2 07/08/24 21:00 97.6 56 18 142/81 (101) 94 97.6 07/08/24 13:07 Nasal Cannula 2.0 07/08/24 13:07 28 Total Intake and Output 07/07/24 07/07/24 07/08/24 15:00 23:00 07:00 Intake Total 460 ml 720 ml Output Total 650 ml Balance 460 ml 70 ml medications Current Medications Medications Dose Ordered Sig/Damon Route Start Time Stop Time Status Last Admin Dose Admin Ondansetron HCl 4 mg Q4HP PRN IV 07/01/24 21:15 07/05/24 08:43 4 MG Atorvastatin Calcium 20 mg DAILY PO 07/02/24 10:00 07/08/24 10:15 20 MG Baclofen 10 mg Q8HP PRN PO 07/01/24 21:15 Hold 07/06/24 00:05 10 MG Clopidogrel Bisulfate 75 mg DAILY PO 07/02/24 10:00 07/08/24 10:15 75 MG Lidocaine 1 patch DAILY TOP 07/02/24 10:00 07/08/24 12:52 1 PATCH Gabapentin 300 mg Q8H PO 07/01/24 21:15 07/08/24 21:21 300 MG Paroxetine HCl 20 mg DAILY PO 07/02/24 10:00 07/08/24 10:15 20 MG Albuterol 2.5 mg Q6HP PRN NEB 07/02/24 05:30 Mesalamine 800 mg TID PO 07/02/24 10:15 07/08/24 21:21 800 MG Diagnostic Test (Pha) 1 strip ACHS 07/03/24 17:00 07/08/24 21:21 1 STRIP Insulin Human Regular ACHS SC 07/03/24 17:00 07/08/24 17:00 4 UNITS Dextrose 50 ml UD PRN IV 07/03/24 12:45 Pantoprazole Sodium 40 mg DAILY IV 07/05/24 10:00 07/08/24 10:14 40 MG Atropine Sulfate 0.5 mg Q4HPRN PRN IV 07/04/24 19:45 Enoxaparin Sodium 80 mg Q12HR SC 07/04/24 23:30 07/08/24 21:21 80 MG Aspirin 81 mg DAILY PO 07/05/24 10:00 07/08/24 10:14 81 MG Vancomycin HCl 125 mg QID PO 07/05/24 18:00 07/08/24 21:20 125 MG Saccharomyces Boulardii 250 mg DAILY PO 07/06/24 10:00 07/08/24 10:15 250 MG Cholestyramine Resin 4 gm DAILY@11 PO 07/06/24 11:00 07/08/24 12:52 4 GM Acetaminophen/ Hydrocodone Bitart 1 tab Q6HP PRN PO 07/06/24 10:00 07/08/24 17:41 1 TAB Methylprednisolone Sodium Succinate 20 mg DAILY IV 07/07/24 10:00 07/08/24 10:14 20 MG Sodium Chloride 1,000 ml @ 120 mls/hr Q8H20M IV 07/07/24 09:00 07/08/24 18:20 120 MLS/HR objective General Appearance: Alert, Oriented X3, Cooperative, on face mask HEENT: Atraumatic, PERRLA, EOMI, Mucous membrane moist/pink Respiratory: Clear to auscultation, Normal air movement Cardiovascular: Regular rate, Normal S1, Normal S2, No murmurs, no chest wall tenderness Abdominal: Soft obese nontender, bowel sounds present, no scars noted Extremities: No clubbing, No cyanosis, No edema, Normal pulses, No tenderness/swelling Skin: No rashes, No breakdown, No significant lesion Neuro: Normal gait, Normal speech, Strength at 5/5 X4 ext, Normal tone, Sensation intact, Cranial nerves 3-12 NL, Reflexes 2+ Psych/Mental Status: Mental status NL, Mood NL laboratory and microbiology Laboratory Tests 07/08/24 05:06 Test 07/08/24 05:06 Range/Units Serum Glucose 86 74-106 mg/dL Problems(with codes): (1) C. difficile colitis (2) Intractable abdominal pain (3) Diarrhea (4) Chronic ulcerative colitis Prognosis Plan Patient is scheduled for a left heart catheterization tomorrow After that patient Cowart catheter can probably be discontinued Bentyl 10 mg p.o. three times a day as needed for abdominal pain I do not believe the patient has a exacerbation of her ulcerative colitis Her stool for WBC is negative and occult blood is negative I believe the patient may be having C diff diarrhea and she has been started on oral vancomycin Continue probiotics Taper off the IV steroids Continue supportive care Dietary Evaluation Review Comments: 1. Would change diet order to CHO 60 gm/meal, Low Fiber/Residue diet 2. Document PO intakes after each meal 3. If PO is <50% of meals consistently, consider oral nutrition supplement Expected Outcomes/Goals: Achieve adequate oral intake. Plan discussed with: Patient, Other (Nurse) ISRAEL FARAH MD Jul 08, 2024 21:26
[2024-07-08] MEDS ORDERED: DICYCLOMINE HCL 10 MG CAP PO PRN (21:30)
[2024-07-09] VITALS (14 sets, daily range): BP systolic 96–135; BP diastolic 65–81; PULSE 54–72; RESP 11–19; TEMP 97.9–99.8; O2SAT 93–99
[2024-07-09 06:25] LABS: INR 1.14 (0.9-1.15); Partial Thromboplastin Time 32.2 SEC (24.5-34.5); Prothrombin Time 11.9 sec (9.3-11.8)
--- NOTE | 2024-07-09 06:57 | DVHPN2 ---
Progress Note - Dictate Date Seen: Jul 09, 2024 Medical Necessity Reason Pt with a Central, PICC or Fol: Yes The following are medically ne: Cowart Catheter Reason for cowart catheter: Strict I&O vital signs Vital Sign Date Time Temp Pulse Resp B/P (MAP) Pulse Ox O2 Delivery O2 Flow Rate FiO2 07/09/24 05:00 97.9 54 18 135/74 (94) 99 97.9 07/09/24 00:30 Nasal Cannula 2.0 07/09/24 00:30 28 Total Intake and Output 07/08/24 07/08/24 07/09/24 15:00 23:00 07:00 Intake Total 325 ml 580 ml Output Total 3600 ml 2300 ml Balance -3275 ml -1720 ml medications Current Medications Medications Dose Ordered Sig/Damon Route Start Time Stop Time Status Last Admin Dose Admin Ondansetron HCl 4 mg Q4HP PRN IV 07/01/24 21:15 07/05/24 08:43 4 MG Atorvastatin Calcium 20 mg DAILY PO 07/02/24 10:00 07/08/24 10:15 20 MG Baclofen 10 mg Q8HP PRN PO 07/01/24 21:15 Hold 07/06/24 00:05 10 MG Clopidogrel Bisulfate 75 mg DAILY PO 07/02/24 10:00 07/08/24 10:15 75 MG Lidocaine 1 patch DAILY TOP 07/02/24 10:00 07/08/24 12:52 1 PATCH Gabapentin 300 mg Q8H PO 07/01/24 21:15 07/09/24 05:43 300 MG Paroxetine HCl 20 mg DAILY PO 07/02/24 10:00 07/08/24 10:15 20 MG Albuterol 2.5 mg Q6HP PRN NEB 07/02/24 05:30 Mesalamine 800 mg TID PO 07/02/24 10:15 07/09/24 05:44 800 MG Diagnostic Test (Pha) 1 strip ACHS 07/03/24 17:00 07/09/24 06:22 1 STRIP Insulin Human Regular ACHS SC 07/03/24 17:00 07/08/24 21:58 3 UNITS Dextrose 50 ml UD PRN IV 07/03/24 12:45 Pantoprazole Sodium 40 mg DAILY IV 07/05/24 10:00 07/08/24 10:14 40 MG Atropine Sulfate 0.5 mg Q4HPRN PRN IV 07/04/24 19:45 Enoxaparin Sodium 80 mg Q12HR SC 07/04/24 23:30 07/08/24 21:21 80 MG Aspirin 81 mg DAILY PO 07/05/24 10:00 07/08/24 10:14 81 MG Vancomycin HCl 125 mg QID PO 07/05/24 18:00 07/09/24 05:44 125 MG Saccharomyces Boulardii 250 mg DAILY PO 07/06/24 10:00 07/08/24 10:15 250 MG Cholestyramine Resin 4 gm DAILY@11 PO 07/06/24 11:00 07/08/24 12:52 4 GM Acetaminophen/ Hydrocodone Bitart 1 tab Q6HP PRN PO 07/06/24 10:00 07/08/24 17:41 1 TAB Methylprednisolone Sodium Succinate 20 mg DAILY IV 07/07/24 10:00 07/08/24 10:14 20 MG Sodium Chloride 1,000 ml @ 120 mls/hr Q8H20M IV 07/07/24 09:00 07/08/24 18:20 120 MLS/HR Dicyclomine HCl 10 mg QID PRN PO 07/08/24 21:30 laboratory and microbiology Laboratory Tests 07/08/24 05:06 Test 07/08/24 05:06 Range/Units Serum Glucose 86 74-106 mg/dL Assessment/Plan Patient is a 59-year-old female who originally presented to the hospital on July 01, 2024 for lower abdominal pain. She also had nausea and diarrhea that time of presentation. It is of note that the patient does have history of inflammatory bowel disease (ulcerative colitis/Crohn's disease) and presentation was assessed somehow related to the inflammatory bowel disease. Since arrival, the patient was intubated at that point and later extubated. She actually had some EGD also. Cardiology was involved (on July 05, 2024) for an episode of sinus bradycardia for which patient was temporarily on Isuprel drip. She mentions that she has been experiencing some chest tightness for the past 2 days also. She denies previous chest tightness. She is known to our practice from before. She does have history of HFpEF. She is being managed in BEE/ICU. She is found to have increased troponin and has been started on aspirin/Lovenox. She does have history of CVA and carotid disease. She has had carotid endarterectomy (right side) before. There is no previous history of coronary artery disease. Nuclear stress test of December 2021 had been nonrevealing. She is kept on aspirin/Plavix as outpatient (old CVA). Not in acute distress. No JVD. Mucosa is pink and dry. No carotid bruit. Lungs are clear to auscultation. Not using accessory muscles of breathing. Cardiac: Regular, no thrills/gallop. Abdomen is soft. Lower abdominal tenderness can be elicited. There is no rebound. Bowel sound is positive There was no gross mass/hepatomegaly. Extremities do not reveal edema. Dorsalis pedis is 2+ bilateral. Left-sided hemiparesis can somehow be observed. 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 She has had kidney stones/hydronephrosis/hydroureter before. Uses a walker for ambulation (secondary to old CVA). Echocardiogram of December 16, 2022 (performed in [facility]) revealed ejection fraction of 60%, mild TR and right ventricular systolic pressure of 27 mm Hg. Echocardiogram of October 18, 2023 reported ejection fraction 55-60%, mild MR/TR and right ventricular systolic pressure of 25 mm Echocardiogram of May 05, 2024 revealed ejection fraction of 50-55%, normal diastolic, trace MR/TR and right ventricular systolic pressure of 28 mm Hg Nuclear stress test of January 03, 2022 (performed as outpatient) revealed ejection fraction of 80% and no evidence for ischemia/scar. TSH: 1.91 BNP: 638.05 - 492.56 Troponin (high sensitive): 1283 1360 - 1105 - 5830 - 1527 Urine culture was positive for Gram-positive annika Urine toxicology was positive for opiates Stool was positive for CDT toxin Chest x-ray reported: IMPRESSION: 1. Endotracheal tube 2.7 cm above the dante. 2. Enteric tube in the stomach 3. Bibasilar areas of atelectasis or infiltrate. Repeat chest x-ray reported: IMPRESSION: Pulmonary venous congestion. CT of the head revealed: IMPRESSION: 1. No acute intracranial abnormality. CT of the abdomen and pelvis revealed: IMPRESSION: 1. There is no acute process in the abdomen and pelvis. 2. Scattered colonic diverticula without evidence of acute diverticulitis. 3. Stable fibroid uterus. EKG reveals sinus rhythm, nonspecific ST-T changes Tele reveals sinus bradycardia and later sinus rhythm Echocardiogram reported: Left ventricle: Left ventricle wall is normal-sized. LVEF is around 40%. Mild diffuse hypokinesis of left ventricle was seen. Right ventricle was normal-sized with normal systolic function. Both atria were normal-sized. Aortic valve was trileaflet. There was no aortic insufficiency/stenosis. There was trace mitral/tricuspid regurgitation. Pulmonary valve was not well visualized. IVC was dilated. Right ventricular systolic pressure was assessed at 30 mm Hg. There was no pericardial effusion. Patient is a 59-year-old female who originally presented with abdominal pain/nausea/diarrhea. Assessment of the presentation has been acute inflammatory bowel disease. Patient was intubated and later extubated for respiratory failure. Patient did have EGD which found gastritis. Patient did have an episode of sinus bradycardia which improved on Isuprel at 1st and later resolved (could it have been secondary to significant abdominal pain/vagal induced?). Patient is found to have abnormal troponin (relatively stable and peaked at 1360) with some chest discomfort. Presentation could be considered non-STEMI. Recognizing comorbidities and the significant abdominal pain during this presentation, stress-induced cardiomyopathy can not be ruled out. Echocardiogram has revealed decrease in systolic function (diffuse hypokinesis). Ischemic workup is suggested. Patient with repeated significant diarrhea (CDT colitis) and LHC was postponed at first. Abdominal pain Acute inflammatory bowel disease, exacerbation C-Diff Colitis UTI, complicated Acute respiratory failure, status post intubation, extubation Systolic heart failure, acute, new finding Abnormal troponin Non-STEMI Sinus bradycardia, resolved Intractable abdominal pain History of old CVA with left hemiparesis History of Crohn disease/ulcerative colitis Morbid obesity Constipation Hyperlipidemia Status post carotid endarterectomy Diverticular disease, history of Cardiac suggestion for management: Manage in tele Follow-up electrolytes and kidney function tests and correct abnormalities. Keep potassium above 4 and magnesium above 2 Full anticoagulation (on Lovenox) for now Aspirin Ischemic workup/cardiac catheterization, tentatively later today Evaluation and management of abdominal pain/inflammatory bowel disease as per GI/primary team Evaluation and management of UTI as per primary team Evaluation and management of C-Diff Colitis as per primary team Pulmonary follow-up for recent history of acute respiratory failure Pain management as per primary team Further evaluation and management depends on the above and clinical course A total of 55 minutes was spent reviewing the patient record, examining the patient, making a diagnostic and therapeutic plan, discussing this plan with medical personnel, following up on diagnostic studies and following the patient for clinical stability excluding any and all procedures. At least 50% of this time was spent in direct, [id number] contact. Thank you for allowing me to participate in this patient's care. Further recommendations will depend on patient's clinical course. Please do not hesitate to contact me if you have any questions or concerns. This medical document was created using electronic medical record system with [employer] computerized dictation system. Although this document has been carefully reviewed, there may still be some phonetic and typographical errors. These areas are purely typographical due to the imperfection of the software programs, and do not reflect any compromise in the patient's medical care Dietary Evaluation Review Comments: 1. Would change diet order to CHO 60 gm/meal, Low Fiber/Residue diet 2. Document PO intakes after each meal 3. If PO is <50% of meals consistently, consider oral nutrition supplement Expected Outcomes/Goals: Achieve adequate oral intake. Plan discussed with: Patient, Other (nurse) BALTAZAR SOMMERS MD Jul 09, 2024 06:57
--- NOTE | 2024-07-09 11:10 | DVHPN2 ---
Progress Note - Dictate Date Seen: Jul 09, 2024 Medical Necessity Reason Pt with a Central, PICC or Fol: Yes The following are medically ne: Cowart Catheter Reason for cowart catheter: Strict I&O vital signs Vital Sign Date Time Temp Pulse Resp B/P (MAP) Pulse Ox O2 Delivery O2 Flow Rate FiO2 07/09/24 09:08 96 Nasal Cannula* 2 28 07/09/24 08:56 98.0 67 17 112/65 (81) 98.0 Total Intake and Output 07/08/24 07/08/24 07/09/24 15:00 23:00 07:00 Intake Total 325 ml 580 ml Output Total 3600 ml 2300 ml Balance -3275 ml -1720 ml medications Current Medications Medications Dose Ordered Sig/Damon Route Start Time Stop Time Status Last Admin Dose Admin Ondansetron HCl 4 mg Q4HP PRN IV 07/01/24 21:15 07/05/24 08:43 4 MG Atorvastatin Calcium 20 mg DAILY PO 07/02/24 10:00 07/08/24 10:15 20 MG Baclofen 10 mg Q8HP PRN PO 07/01/24 21:15 Hold 07/06/24 00:05 10 MG Clopidogrel Bisulfate 75 mg DAILY PO 07/02/24 10:00 07/08/24 10:15 75 MG Lidocaine 1 patch DAILY TOP 07/02/24 10:00 07/08/24 12:52 1 PATCH Gabapentin 300 mg Q8H PO 07/01/24 21:15 07/09/24 05:43 300 MG Paroxetine HCl 20 mg DAILY PO 07/02/24 10:00 07/08/24 10:15 20 MG Albuterol 2.5 mg Q6HP PRN NEB 07/02/24 05:30 Mesalamine 800 mg TID PO 07/02/24 10:15 07/09/24 05:44 800 MG Diagnostic Test (Pha) 1 strip ACHS 07/03/24 17:00 07/09/24 06:22 1 STRIP Insulin Human Regular ACHS SC 07/03/24 17:00 07/08/24 21:58 3 UNITS Dextrose 50 ml UD PRN IV 07/03/24 12:45 Pantoprazole Sodium 40 mg DAILY IV 07/05/24 10:00 07/08/24 10:14 40 MG Atropine Sulfate 0.5 mg Q4HPRN PRN IV 07/04/24 19:45 Enoxaparin Sodium 80 mg Q12HR SC 07/04/24 23:30 07/08/24 21:21 80 MG Aspirin 81 mg DAILY PO 07/05/24 10:00 07/08/24 10:14 81 MG Vancomycin HCl 125 mg QID PO 07/05/24 18:00 07/09/24 05:44 125 MG Saccharomyces Boulardii 250 mg DAILY PO 07/06/24 10:00 07/08/24 10:15 250 MG Cholestyramine Resin 4 gm DAILY@11 PO 07/06/24 11:00 07/08/24 12:52 4 GM Acetaminophen/ Hydrocodone Bitart 1 tab Q6HP PRN PO 07/06/24 10:00 07/08/24 17:41 1 TAB Methylprednisolone Sodium Succinate 20 mg DAILY IV 07/07/24 10:00 07/08/24 10:14 20 MG Sodium Chloride 1,000 ml @ 120 mls/hr Q8H20M IV 07/07/24 09:00 07/08/24 18:20 120 MLS/HR Dicyclomine HCl 10 mg QID PRN PO 07/08/24 21:30 objective General Appearance: alert, no distress HEENT: EOMI, PERRLA, normal external inspect of ears, no icterus, no nasal drainage Neck: no carotid bruit, no jugular venous distention (JVD), no lymphadenopathy Chest: normal thorax Respiratory: clear to auscultation, normal air movement Cardiovascular: regular rate and rhythm, no diastolic murmur, no jugular venous distention (JVD), no rub, no systolic murmur Abdominal: soft, no hepatomegaly, no mass, no splenomegaly, no tenderness Genitourinary: grossly normal external Musculoskeletal: no joint tenderness, no swelling Extremities: normal pulses, no calf tenderness, no clubbing, no cyanosis, no edema Skin: no bruising, no jaundice, no rash Neurological: alert, No focal deficit laboratory and microbiology Laboratory Tests 07/08/24 05:06 Test 07/08/24 05:06 Range/Units Serum Glucose 86 74-106 mg/dL Problem List 1. Recurrent UTI Monitor, send UA, IV abx 2. C. difficile colitis Oral vancomyocin 3. Mixed hyperlipidemia Monitor, medications 4. DM II with hyperglycemia Monitor, insulin ss 5. S/p colectomy Monitor 6. Hx CVA with residual weakness Monitor, restart anticoagulation 7. CAD Monitor Assessment/Plan Progress Note: Subjective: Patient is awake and alert. States she is feeling better. Objective: Patient was admitted on July 01, 2024 for recurrent UTI. Ulcerative colitis was ruled out. Found to have C. difficile colitis. GI was consulted. Patient is now on oral vancomycin. Status post extubation following bronchoscopy after swallowing a large food bolus, which required assistance for removal. Patient is now awake, alert, and doing well. Plan: Continue antibiotics. Patient is scheduled for heart catheterization today. Previously found to be in NSTEMI. Plan for discharge once cleared by cardiology. Dietary Evaluation Review Comments: 1. Would change diet order to CHO 60 gm/meal, Low Fiber/Residue diet 2. Document PO intakes after each meal 3. If PO is <50% of meals consistently, consider oral nutrition supplement Expected Outcomes/Goals: Achieve adequate oral intake. Plan discussed with: Patient, Other TED HUSSEIN PRIVATE BANKER Jul 09, 2024 11:10
[2024-07-09] MEDS: IODIXANOL 320MG/ML 100ML BTL IV ONE (14:29)
[2024-07-09] MEDS: MIDAZOLAM HCL 2MG/2ML 2ml VIAL (1mg/ml) ONE (14:40)
[2024-07-09] MEDS: VERAPAMIL 2.5MG/ML INJ 2ML VIAL IV ONE (14:40)
[2024-07-09] MEDS: fentaNYL CITRATE 100 MCG/2 ML VL ONE (14:40)
[2024-07-09] MEDS: HEPARIN SODIUM (PORCINE) 5000 UNITS/ML 1ML VIAL ONE (14:40)
[2024-07-09] MEDS: ANGIOMAX 250 MG VIAL IV ONE (14:40)
[2024-07-09] MEDS: LIDOCAINE 2%HCL (LOCAL ANESTH.) INJ 20ML MDV ONE (14:41)
[2024-07-09] MEDS: SODIUM CHL 0.9% 0 ML ONE (14:41)
[2024-07-09] MEDS ORDERED: HEPARIN DRIP/D5W 100UNITS/ML 250 ML IV SCH (16:00)
--- NOTE | 2024-07-09 16:29 | DVHOP2 ---
Operative Report Procedures performed: Left heart catheterization and bilateral coronary angiogram Moderate sedation Ultrasound-guided access Diagnosis: Triple-vessel coronary artery disease LVEF of 45% with LVEDP of 10 mm Hg Cardiac suggestion for management: Transfer to high level of care for Cardiothoracic surgery evaluation/bypass surgery Aspirin for now Heparin drip for now Findings: LVEF: 45% LVEDP: 10 mm Hg There was no transaortic valve pressure gradient Left main: Left main was coming off the left sinus of Valsalva. There was no angiographic evidence of disease in left main. LAD: LAD was coming off the left main. Mid LAD had focal 90% lesion at the area that there was takeoff of 2 diagonals (trifurcation area). D1 had 90% ostial lesion also. D2 had 70% ostial lesion. D1 and D2 both were medium to large-sized vessel. Other portions of LAD had mild diffuse disease. LCX: LCX was coming off the left main. Mid LCX had 85% focal lesion. Obtuse marginals revealed mild disease. RCA: RCA was coming off the right sinus of Valsalva. It was a dominant vessel and provided RPDA. Mid RCA had sequential disease of 75 and 70%. Ostial of RPDA had 70% focal lesion. Presentation: Patient is a 59-year-old female who originally presented to the hospital with lower abdominal pain/diarrhea. She was originally intubated for protection of airway and later extubated. She was treated for colitis. Does have history of ulcerative colitis/inflammatory bowel disease. Was found to have significant diarrhea and was found to have C diff colitis (on treatment for it). While being managed on telemetry floor, patient had some chest discomfort and had increased troponin (peaked at 1360). Does have baseline history of diabetes mellitus/diastolic heart failure/carotid artery disease and status post endarterectomy, history of CVA with mild left hemiparesis. Echocardiogram revealed ejection fraction of around 45%. Was diagnosed with non-STEMI. Was sent for cardiac catheterization. Procedure: After obtaining informed consent, the patient was brought to the recyclable materials collector. She was prepped and draped in sterile fashion. 2 mg of Versed and 75 mcg of fentanyl were used for moderate sedation (lasting more than 30 minutes). At 1st we obtained the access in the right radial artery (using modified Seldinger technique and under fluoroscopy guidance, right radial artery was accessed and a 6 Guyanese slender sheath was inserted into it). 2.5 mg of verapamil and 100 mcg of nitroglycerin were given into the right radial sheath as a cocktail. While attempting to go up the right radial artery we recognized some resistance. We did use glidewire but recognized some extravasation and decided to abandon the use of right radial artery access. We did put the pulse oximetry on the right thumb for continuous monitoring. It remained normal. We decided to proceed with getting the access in the right femoral artery. Using ultrasound guidance and the micropuncture, the right femoral artery was accessed. After angiographically proving a good access point, the micropuncture sheath was exchanged over a wire to the 6 Guyanese femoral sheath. A 6 Guyanese JL4 diagnostic catheter was used to perform left coronary angiography. A 6 Guyanese JR4 diagnostic catheter was used to perform right coronary angiography. A 6 Guyanese pigtail catheter was used to perform left heart catheterization (obtain ing pressures and performing left ventriculography). We did recognize multivessel coronary artery disease. We did recognize somehow decreased left ventricular systolic function. Recognizing patient's risk factors (including diabetes mellitus), decision was made to ask/refer for Cardiothoracic surgery for possible bypass surgery. Right femoral artery access site was managed by d eploying an Angio-Seal device. Right radial artery access site was managed by deploying a TR band. Total bleeding was less than 15 mL. Patient tolerated the procedure with no complication. Patient remained symptom-less in the right upper extremity. Fluoroscopy time: 3.9 minutes contrast: 57 mL of Visipaque. BALTAZAR SOMMERS MD Jul 09, 2024 16:29
--- NOTE | 2024-07-09 16:49 | DVHPN2 ---
Progress Note - Dictate Date Seen: Jul 09, 2024 Medical Necessity Reason Pt with a Central, PICC or Fol: Yes The following are medically ne: Cowart Catheter Reason for cowart catheter: Strict I&O Subjective Patient underwent cardiac catheterization today She has multiple vessel disease and has been advised possible cardiac surgery referral No bowel movement recorded Stool for C diff was positive, patient has been started on oral vancomycin Last [facility] vital signs Vital Sign Date Time Temp Pulse Resp B/P (MAP) Pulse Ox O2 Delivery O2 Flow Rate FiO2 07/09/24 16:30 63 14 114/70 (85) 93 07/09/24 15:50 98.6 98.6 07/09/24 10:30 Nasal Cannula* 2 28 Total Intake and Output 07/08/24 07/08/24 07/09/24 15:00 23:00 07:00 Intake Total 325 ml 580 ml Output Total 3600 ml 2300 ml Balance -3275 ml -1720 ml medications Current Medications Medications Dose Ordered Sig/Damon Route Start Time Stop Time Status Last Admin Dose Admin Ondansetron HCl 4 mg Q4HP PRN IV 07/01/24 21:15 07/05/24 08:43 4 MG Atorvastatin Calcium 20 mg DAILY PO 07/02/24 10:00 07/09/24 10:55 20 MG Baclofen 10 mg Q8HP PRN PO 07/01/24 21:15 Hold 07/06/24 00:05 10 MG Clopidogrel Bisulfate 75 mg DAILY PO 07/02/24 10:00 07/09/24 10:54 75 MG Lidocaine 1 patch DAILY TOP 07/02/24 10:00 07/08/24 12:52 1 PATCH Gabapentin 300 mg Q8H PO 07/01/24 21:15 07/09/24 05:43 300 MG Paroxetine HCl 20 mg DAILY PO 07/02/24 10:00 07/09/24 10:54 20 MG Albuterol 2.5 mg Q6HP PRN NEB 07/02/24 05:30 Mesalamine 800 mg TID PO 07/02/24 10:15 07/09/24 05:44 800 MG Diagnostic Test (Pha) 1 strip ACHS 07/03/24 17:00 07/09/24 11:09 1 STRIP Insulin Human Regular ACHS SC 07/03/24 17:00 07/08/24 21:58 3 UNITS Dextrose 50 ml UD PRN IV 07/03/24 12:45 Pantoprazole Sodium 40 mg DAILY IV 07/05/24 10:00 07/09/24 10:53 40 MG Atropine Sulfate 0.5 mg Q4HPRN PRN IV 07/04/24 19:45 Enoxaparin Sodium 80 mg Q12HR SC 07/04/24 23:30 07/08/24 21:21 80 MG Aspirin 81 mg DAILY PO 07/05/24 10:00 07/09/24 10:54 81 MG Vancomycin HCl 125 mg QID PO 07/05/24 18:00 07/09/24 05:44 125 MG Saccharomyces Boulardii 250 mg DAILY PO 07/06/24 10:00 07/09/24 10:55 250 MG Cholestyramine Resin 4 gm DAILY@11 PO 07/06/24 11:00 07/08/24 12:52 4 GM Acetaminophen/ Hydrocodone Bitart 1 tab Q6HP PRN PO 07/06/24 10:00 07/08/24 17:41 1 TAB Sodium Chloride 1,000 ml @ 120 mls/hr Q8H20M IV 07/07/24 09:00 07/08/24 18:20 120 MLS/HR Dicyclomine HCl 10 mg QID PRN PO 07/08/24 21:30 Heparin Sodium/ Dextrose 250 ml @ 10 mls/hr Q24H IV 07/09/24 19:00 UNV objective General Appearance: Alert, Oriented X3, Cooperative, on face mask HEENT: Atraumatic, PERRLA, EOMI, Mucous membrane moist/pink Respiratory: Clear to auscultation, Normal air movement Cardiovascular: Regular rate, Normal S1, Normal S2, No murmurs, no chest wall tenderness Abdominal: Soft obese nontender, bowel sounds present, no scars noted Extremities: No clubbing, No cyanosis, No edema, Normal pulses, No tenderness/swelling Skin: No rashes, No breakdown, No significant lesion Neuro: Normal gait, Normal speech, Strength at 5/5 X4 ext, Normal tone, Sensation intact, Cranial nerves 3-12 NL, Reflexes 2+ Psych/Mental Status: Mental status NL, Mood NL laboratory and microbiology Laboratory Tests 07/08/24 05:06 Test 07/08/24 05:06 Range/Units Serum Glucose 86 74-106 mg/dL Problems(with codes): (1) Obesity (2) Diabetes (3) C. difficile colitis (4) Intractable abdominal pain (5) Diarrhea (6) Chronic ulcerative colitis Prognosis PLAN Bentyl 10 mg p.o. three times a day as needed for abdominal pain I do not believe the patient has a exacerbation of her ulcerative colitis Her stool for WBC is negative and occult blood is negative I believe the patient may be having C diff diarrhea and she has been started on oral vancomycin Continue probiotics Taper off the IV steroids Continue supportive care Dietary Evaluation Review Comments: 1. Would change diet order to CHO 60 gm/meal, Low Fiber/Residue diet 2. Document PO intakes after each meal 3. If PO is <50% of meals consistently, consider oral nutrition supplement Expected Outcomes/Goals: Achieve adequate oral intake. Plan discussed with: Other (Nurse) ISRAEL FARAH MD Jul 09, 2024 16:49
[2024-07-09 17:00] LABS: Basophils # (auto) 0.1 10 ^3/uL (0-0.2); Basophils % (auto) 0.8 % (0.0-2.0); Eosinophils # (auto) 0 10 ^3/uL (0-0.8); Hematocrit 41.6 % (36.0-46.0); Hemoglobin 13.9 g/dL (12.2-16.2); Lymphocytes # (auto) 0.6 10 ^3/uL (0.4-5.4); Lymphocytes % (auto) 7.4 % (10.0-50.0); Mean Corpuscular Hemoglobin 29.5 pg (28.0-32.0); Mean Corpuscular Hgb Conc. 33.4 g/dL (32.0-36.0); Mean Corpuscular Volume 88.2 fL (80.0-100.0); Monocytes # (auto) 0.1 10 ^3/uL (0-1.3); Monocytes % (auto) 0.9 % (0.0-12.0); Neutrophils % (auto) 90.9 % (37.0-80.0); Platelet Count (auto) 158 10^3/uL (140-450); Red Blood Cells 4.71 10^6/uL (4.0-5.20); White Blood Cell 8.8 10^3/uL (4.4-10.8)
[2024-07-09] MEDS: HEPARIN SODIUM (PORCINE) 5000 UNITS/ML 1ML VIAL IV ONE (18:01)
[2024-07-09] MEDS: HEPARIN DRIP/D5W 100UNITS/ML 250 ML IV SCH (18:47)
--- NOTE | 2024-07-09 19:46 | CONS ---
Pharmacy Clinical Information: Spoke to ISRAEL Larry 07/09/24 @1940 regarding to Heparin drip RN confirmed current rate 1,000 units/hr and the aPTT lab is scheduled on 07/10/24 @0100 per protocol [facility] Jul 09, 2024 19:46
--- NOTE | 2024-07-09 21:35 | DVHPN2 ---
Progress Note - Dictate Date Seen: Jul 09, 2024 Medical Necessity Reason Pt with a Central, PICC or Fol: Yes The following are medically ne: Cowart Catheter Reason for cowart catheter: Strict I&O Subjective Patient seen and examined at bedside. Remains on supplemental oxygen Overnight events reviewed. vital signs Vital Sign Date Time Temp Pulse Resp B/P (MAP) Pulse Ox O2 Delivery O2 Flow Rate FiO2 07/09/24 21:00 99.8 71 16 133/77 (95) 95 99.8 07/09/24 18:15 Nasal Cannula* 2 28 Total Intake and Output 07/08/24 07/08/24 07/09/24 15:00 23:00 07:00 Intake Total 325 ml 580 ml Output Total 3600 ml 2300 ml Balance -3275 ml -1720 ml medications Current Medications Medications Dose Ordered Sig/Damon Route Start Time Stop Time Status Last Admin Dose Admin Ondansetron HCl 4 mg Q4HP PRN IV 07/01/24 21:15 07/05/24 08:43 4 MG Atorvastatin Calcium 20 mg DAILY PO 07/02/24 10:00 07/09/24 10:55 20 MG Baclofen 10 mg Q8HP PRN PO 07/01/24 21:15 Hold 07/06/24 00:05 10 MG Clopidogrel Bisulfate 75 mg DAILY PO 07/02/24 10:00 07/09/24 10:54 75 MG Lidocaine 1 patch DAILY TOP 07/02/24 10:00 07/08/24 12:52 1 PATCH Gabapentin 300 mg Q8H PO 07/01/24 21:15 07/09/24 21:15 300 MG Paroxetine HCl 20 mg DAILY PO 07/02/24 10:00 07/09/24 10:54 20 MG Albuterol 2.5 mg Q6HP PRN NEB 07/02/24 05:30 Mesalamine 800 mg TID PO 07/02/24 10:15 07/09/24 21:15 800 MG Diagnostic Test (Pha) 1 strip ACHS 07/03/24 17:00 07/09/24 21:16 1 STRIP Insulin Human Regular ACHS SC 07/03/24 17:00 07/09/24 21:24 2 UNITS Dextrose 50 ml UD PRN IV 07/03/24 12:45 Pantoprazole Sodium 40 mg DAILY IV 07/05/24 10:00 07/09/24 10:53 40 MG Atropine Sulfate 0.5 mg Q4HPRN PRN IV 07/04/24 19:45 Enoxaparin Sodium 80 mg Q12HR SC 07/04/24 23:30 07/08/24 21:21 80 MG Aspirin 81 mg DAILY PO 07/05/24 10:00 07/09/24 10:54 81 MG Vancomycin HCl 125 mg QID PO 07/05/24 18:00 07/09/24 21:15 125 MG Saccharomyces Boulardii 250 mg DAILY PO 07/06/24 10:00 07/09/24 10:55 250 MG Cholestyramine Resin 4 gm DAILY@11 PO 07/06/24 11:00 07/08/24 12:52 4 GM Acetaminophen/ Hydrocodone Bitart 1 tab Q6HP PRN PO 07/06/24 10:00 07/09/24 21:16 1 TAB Sodium Chloride 1,000 ml @ 120 mls/hr Q8H20M IV 07/07/24 09:00 07/09/24 11:00 120 MLS/HR Dicyclomine HCl 10 mg QID PRN PO 07/08/24 21:30 Heparin Sodium/ Dextrose 250 ml @ 10 mls/hr Q24H IV 07/09/24 19:00 07/09/24 18:47 10 MLS/HR objective Gen.: Patient lying in bed in no apparent distress. On supplemental oxygen. Head: Normocephalic, atraumatic. Eyes: EOMI/PERRLA. Ears: Normal hearing. Normal anatomy. Neck/trachea: Trachea midline, supple. Nose: Normal external anatomy. Mouth: Moist mucous membranes. Chest: Decreased air entry bilaterally. No wheezing or rhonchi. Cardiovascular: Positive S1, positive S2. Regular rate and rhythm. Abdomen: Positive bowel sounds in all 4 quadrants. Soft, non-tender, non- distended. : Deferred. Rectal: Deferred. Skin: Warm, dry. Intact. Extremities: 2+ radial pulses bilaterally. No lower extremity edema. Neuro: Awake, alert, oriented x3. No gross motor or sensory deficits. Cranial nerves II through XII intact. Gait not assessed. laboratory and microbiology Laboratory Tests 07/09/24 16:45 07/08/24 05:06 Test 07/08/24 05:06 Range/Units Serum Glucose 86 74-106 mg/dL Assessment/Plan Impression: Respiratory distress, resolved Ruled out foreign body Asthma exacerbation Obesity Wheezing Urinary tract infection S/p colectomy Acute on chronic ulcerative colitis. Events: Remains on supplemental oxygen, 2 LPM NC Taper O2 as tolerated Head of bed elevation Aspiration precautions Bradycardia Plan for HLOC for coronary artery bypass grafting Cardiology recs appreciated Positive C. difficile Continue antibiotics, PO Vancomycin ID recs appreciated. IV steroids Incentive spirometry Therapeutic Lovenox Accu-Cheks, ISS. Monitor blood pressure Pain control Avoid oversedation Protonix for GI prophylaxis Labs and imaging reviewed. Rest of plan as noted below. Plan: S/p extubation on 07/04/24 Supplemental oxygen Titrate to keep O2 sats above 92%. S/p bronchoscopy on 07/03, no evidence of foreign body in the lung. Scant bilateral lower lobe secretions were noted. Patient tolerated the procedure well. IV steroids Continue antibiotics. Bronchodilators PRN Pressors as necessary for hemodynamic support Titrate to keep mean arterial pressure greater than 65 mmHg. Pain control Avoid oversedation Surgery recs appreciated. Monitor renal function Monitor electrolytes. Supplement as necessary. Monitor ins and outs. Diet and lifestyle modifications for weight reduction Obesity - complicates all care DVT prophylaxis - Lovenox SC. Prognosis: Poor given patient's multiple co-morbidities. Rest of plan per hospitalist and other consultants. Thank you, Dr. Hylton, for allowing me to participate in this patient's care. Further recommendations will depend on the patient's clinical course. Please do not hesitate to contact me if you have any questions or concerns. This medical document was created using an electronic medical record system with [employer] dictation system. Although these documentations are being carefully reviewed, there may still be some phonetic and typographical changes. The errors are purely typographical, due to imperfection on the software program, and do not reflect any compromise in the patient's medical care. Dietary Evaluation Review Comments: 1. Would change diet order to CHO 60 gm/meal, Low Fiber/Residue diet 2. Document PO intakes after each meal 3. If PO is <50% of meals consistently, consider oral nutrition supplement Expected Outcomes/Goals: Achieve adequate oral intake. Plan discussed with: Patient, Other (ISRAEL Tinoco) LUISA CHILDERS MD Jul 09, 2024 21:35
[2024-07-10] VITALS (10 sets, daily range): BP systolic 101–126; BP diastolic 61–76; PULSE 57–82; RESP 13–19; TEMP 98.2–99.1; O2SAT 91–98
[2024-07-10 01:05] LABS: INR 1.13 (0.9-1.15); Partial Thromboplastin Time 55.8 SEC (24.5-34.5); Prothrombin Time 11.8 sec (9.3-11.8)
--- NOTE | 2024-07-10 01:32 | CONS ---
Pharmacy Clinical Information: Coagulation Test 07/09/24 05:12 07/10/24 00:50 Prothrombin Time 11.9 sec (9.3-11.8) H 11.8 sec (9.3-11.8) Prothrombin Time INR 1.14 (0.9-1.15) 1.13 (0.9-1.15) Activated Partial Thromboplast Time 32.2 SEC (24.5-34.5) 55.8 SEC (24.5-34.5) H PTT=55.8, THERAPEUTIC X 1, NO CHANGES, CONTINUE RATE AT 10 ML/NW=8040 UNITS/HR, PT=11.8, INR=1.13, NEXT PTT @ 0700, CONFIRMED W/ RN PT NOT SHOWING SIGNS OF BLEEDING AND RN AWARE OF PLAN. SUSANA PETTY Jul 10, 2024 01:32
[2024-07-10 05:46] LABS: Basophils # (auto) 0 10 ^3/uL (0-0.2); Basophils % (auto) 0.2 % (0.0-2.0); Eosinophils # (auto) 0.1 10 ^3/uL (0-0.8); Hematocrit 38.9 % (36.0-46.0); Hemoglobin 13.3 g/dL (12.2-16.2); Lymphocytes # (auto) 2.2 10 ^3/uL (0.4-5.4); Lymphocytes % (auto) 26.8 % (10.0-50.0); Mean Corpuscular Hemoglobin 29.8 pg (28.0-32.0); Mean Corpuscular Hgb Conc. 34.2 g/dL (32.0-36.0); Mean Corpuscular Volume 87.1 fL (80.0-100.0); Monocytes # (auto) 0.3 10 ^3/uL (0-1.3); Monocytes % (auto) 4.2 % (0.0-12.0); Neutrophils # (auto) 5.5 10 ^3/uL (1.6-8.6); Neutrophils % (auto) 67.8 % (37.0-80.0); Nucleated Red Blood Cells % 0.1 %; Platelet Count (auto) 166 10^3/uL (140-450); Red Blood Cells 4.47 10^6/uL (4.0-5.20); Red Cell Distribution Width 14.6 % (11.8-14.3); White Blood Cell 8.2 10^3/uL (4.4-10.8)
--- NOTE | 2024-07-10 07:11 | DVHPN2 ---
Progress Note - Dictate Date Seen: Jul 10, 2024 Medical Necessity Reason Pt with a Central, PICC or Fol: Yes The following are medically ne: Cowart Catheter Reason for cowart catheter: Strict I&O vital signs Vital Sign Date Time Temp Pulse Resp B/P (MAP) Pulse Ox O2 Delivery O2 Flow Rate FiO2 07/10/24 05:00 98.2 63 17 117/66 (83) 95 98.2 07/09/24 20:00 Nasal Cannula* 2 28 Total Intake and Output 07/09/24 07/09/24 07/10/24 15:00 23:00 07:00 Intake Total 0 ml 450 ml Output Total 750 ml Balance -750 ml 450 ml medications Current Medications Medications Dose Ordered Sig/Damon Route Start Time Stop Time Status Last Admin Dose Admin Ondansetron HCl 4 mg Q4HP PRN IV 07/01/24 21:15 07/05/24 08:43 4 MG Atorvastatin Calcium 20 mg DAILY PO 07/02/24 10:00 07/09/24 10:55 20 MG Baclofen 10 mg Q8HP PRN PO 07/01/24 21:15 Hold 07/06/24 00:05 10 MG Clopidogrel Bisulfate 75 mg DAILY PO 07/02/24 10:00 07/09/24 10:54 75 MG Lidocaine 1 patch DAILY TOP 07/02/24 10:00 07/08/24 12:52 1 PATCH Gabapentin 300 mg Q8H PO 07/01/24 21:15 07/10/24 05:37 300 MG Paroxetine HCl 20 mg DAILY PO 07/02/24 10:00 07/09/24 10:54 20 MG Albuterol 2.5 mg Q6HP PRN NEB 07/02/24 05:30 Mesalamine 800 mg TID PO 07/02/24 10:15 07/10/24 05:37 800 MG Diagnostic Test (Pha) 1 strip ACHS 07/03/24 17:00 07/10/24 06:12 1 STRIP Insulin Human Regular ACHS SC 07/03/24 17:00 07/09/24 21:24 2 UNITS Dextrose 50 ml UD PRN IV 07/03/24 12:45 Pantoprazole Sodium 40 mg DAILY IV 07/05/24 10:00 07/09/24 10:53 40 MG Atropine Sulfate 0.5 mg Q4HPRN PRN IV 07/04/24 19:45 Enoxaparin Sodium 80 mg Q12HR SC 07/04/24 23:30 Hold 07/08/24 21:21 80 MG Aspirin 81 mg DAILY PO 07/05/24 10:00 07/09/24 10:54 81 MG Vancomycin HCl 125 mg QID PO 07/05/24 18:00 07/10/24 05:37 125 MG Saccharomyces Boulardii 250 mg DAILY PO 07/06/24 10:00 07/09/24 10:55 250 MG Cholestyramine Resin 4 gm DAILY@11 PO 07/06/24 11:00 07/08/24 12:52 4 GM Acetaminophen/ Hydrocodone Bitart 1 tab Q6HP PRN PO 07/06/24 10:00 07/10/24 04:23 1 TAB Sodium Chloride 1,000 ml @ 120 mls/hr Q8H20M IV 07/07/24 09:00 07/09/24 19:20 120 MLS/HR Dicyclomine HCl 10 mg QID PRN PO 07/08/24 21:30 Heparin Sodium/ Dextrose 250 ml @ 10 mls/hr Q24H IV 07/09/24 19:00 07/09/24 18:47 10 MLS/HR laboratory and microbiology Laboratory Tests 07/10/24 04:48 07/08/24 05:06 Test 07/08/24 05:06 Range/Units Serum Glucose 86 74-106 mg/dL Assessment/Plan Patient is a 59-year-old female who originally presented to the hospital on July 01, 2024 for lower abdominal pain. She also had nausea and diarrhea that time of presentation. It is of note that the patient does have history of inflammatory bowel disease (ulcerative colitis/Crohn's disease) and presentation was assessed somehow related to the inflammatory bowel disease. Since arrival, the patient was intubated at that point and later extubated. She actually had some EGD also. Cardiology was involved (on July 05, 2024) for an episode of sinus bradycardia for which patient was temporarily on Isuprel drip. She mentions that she has been experiencing some chest tightness for the past 2 days also. She denies previous chest tightness. She is known to our practice from before. She does have history of HFpEF. She is being managed in BEE/ICU. She is found to have increased troponin and has been started on aspirin/Lovenox. She does have history of CVA and carotid disease. She has had carotid endarterectomy (right side) before. There is no previous history of coronary artery disease. Nuclear stress test of December 2021 had been nonrevealing. She is kept on aspirin/Plavix as outpatient (old CVA). Not in acute distress. No JVD. Mucosa is pink and dry. No carotid bruit. Lungs are clear to auscultation. Not using accessory muscles of breathing. Cardiac: Regular, no thrills/gallop. Abdomen is soft. Lower abdominal tenderness can be elicited. There is no rebound. Bowel sound is positive There was no gross mass/hepatomegaly. Extremities do not reveal edema. Dorsalis pedis is 2+ bilateral. Left-sided hemiparesis can somehow be observed. 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 She has had kidney stones/hydronephrosis/hydroureter before. Uses a walker for ambulation (secondary to old CVA). Echocardiogram of December 16, 2022 (performed in [facility]) revealed ejection fraction of 60%, mild TR and right ventricular systolic pressure of 27 mm Hg. Echocardiogram of October 18, 2023 reported ejection fraction 55-60%, mild MR/TR and right ventricular systolic pressure of 25 mm Echocardiogram of May 05, 2024 revealed ejection fraction of 50-55%, normal diastolic, trace MR/TR and right ventricular systolic pressure of 28 mm Hg Nuclear stress test of January 03, 2022 (performed as outpatient) revealed ejection fraction of 80% and no evidence for ischemia/scar. TSH: 1.91 BNP: 638.05 - 492.56 Troponin (high sensitive): 1283 - 1360 - 1105 - 1040 - 1247 Urine culture was positive for Gram-positive annika Urine toxicology was positive for opiates Stool was positive for CDT toxin Chest x-ray reported: IMPRESSION: 1. Endotracheal tube 2.7 cm above the dante. 2. Enteric tube in the stomach 3. Bibasilar areas of atelectasis or infiltrate. Repeat chest x-ray reported: IMPRESSION: Pulmonary venous congestion. CT of the head revealed: IMPRESSION: 1. No acute intracranial abnormality. CT of the abdomen and pelvis revealed: IMPRESSION: 1. There is no acute process in the abdomen and pelvis. 2. Scattered colonic diverticula without evidence of acute diverticulitis. 3. Stable fibroid uterus. EKG reveals sinus rhythm, nonspecific ST-T changes Tele reveals sinus bradycardia and later sinus rhythm Echocardiogram reported: Left ventricle: Left ventricle wall is normal-sized. LVEF is around 40%. Mild diffuse hypokinesis of left ventricle was seen. Right ventricle was normal-sized with normal systolic function. Both atria were normal-sized. Aortic valve was trileaflet. There was no aortic insufficiency/stenosis. There was trace mitral/tricuspid regurgitation. Pulmonary valve was not well visualized. IVC was dilated. Right ventricular systolic pressure was assessed at 30 mm Hg. There was no pericardial effusion. Cardiac cath revealed: Diagnosis: Triple-vessel coronary artery disease, LVEF of 45% with LVEDP of 10 mm Hg; Cardiac suggestion for management: Transfer to [facility] level of care for Cardiothoracic surgery evaluation/bypass surgery; Aspirin for now; Heparin drip for now Patient is a 59-year-old female who originally presented with abdominal pain/nausea/diarrhea. Assessment of the presentation has been acute inflammatory bowel disease. Patient was intubated and later extubated for respiratory failure. Patient did have EGD which found gastritis. Patient did have an episode of sinus bradycardia which improved on Isuprel at 1st and later resolved (could it have been secondary to significant abdominal pain/vagal induced?). Patient is found to have abnormal troponin (relatively stable and peaked at 1360) with some chest discomfort. Presentation could be considered non-STEMI. Recognizing comorbidities and the significant abdominal pain during this presentation, stress-induced cardiomyopathy can not be ruled out. Echocardiogram has revealed decrease in systolic function (diffuse hypokinesis). Patient with repeated significant diarrhea (CDT colitis) and C was postponed at first. Found to have multivessel CAD and suggestion is to transfer to [facility] for bypass surgery. Abdominal pain Acute inflammatory bowel disease, exacerbation C-Diff Colitis UTI, complicated Acute respiratory failure, status post intubation, extubation Systolic heart failure, acute, new finding Abnormal troponin Non-STEMI Sinus bradycardia, resolved Intractable abdominal pain History of old CVA with left hemiparesis History of Crohn disease/ulcerative colitis Morbid obesity Constipation Hyperlipidemia Status post carotid endarterectomy Diverticular disease, history of Cardiac suggestion for management: Manage in tele Follow-up electrolytes and kidney function tests and correct abnormalities. Keep potassium above 4 and magnesium above 2 Heparin drip Aspirin Transfer to high level of care for Cardiothoracic surgery evaluation/bypass surgery; Aspirin for now; Heparin drip for now Evaluation and management of abdominal pain/inflammatory bowel disease as per GI/primary team Evaluation and management of UTI as per primary team Evaluation and management of C-Diff Colitis as per primary team Pulmonary follow-up for recent history of acute respiratory failure Pain management as per primary team Further evaluation and management depends on the above and clinical course A total of 55 minutes was spent reviewing the patient record, examining the patient, making a diagnostic and therapeutic plan, discussing this plan with medical personnel, following up on diagnostic studies and following the patient for clinical stability excluding any and all procedures. At least 50% of this time was spent in direct, [id number] contact. Thank you for allowing me to participate in this patient's care. Further recommendations will depend on patient's clinical course. Please do not hesitate to contact me if you have any questions or concerns. This medical document was created using electronic medical record system with [employer] computerized dictation system. Although this document has been carefully reviewed, there may still be some phonetic and typographical errors. These areas are purely typographical due to the imperfection of the software programs, and do not reflect any compromise in the patient's medical care Dietary Evaluation Review Comments: 1. Would change diet order to CHO 60 gm/meal, Low Fiber/Residue diet 2. Document PO intakes after each meal 3. If PO is <50% of meals consistently, consider oral nutrition supplement Expected Outcomes/Goals: Achieve adequate oral intake. Plan discussed with: Patient, Other (nurse) BALTAZAR SOMMERS MD Jul 10, 2024 07:11
[2024-07-10 08:41] LABS: INR 1.11 (0.9-1.15); Prothrombin Time 11.6 sec (9.3-11.8)
[2024-07-10 08:48] LABS: Partial Thromboplastin Time 70.9 SEC (24.5-34.5)
--- NOTE | 2024-07-10 09:17 | DVHPN2 ---
Progress Note - Dictate Date Seen: Jul 10, 2024 Medical Necessity Reason Pt with a Central, PICC or Fol: Yes The following are medically ne: Cowart Catheter Reason for cowart catheter: Strict I&O vital signs Vital Sign Date Time Temp Pulse Resp B/P (MAP) Pulse Ox O2 Delivery O2 Flow Rate FiO2 07/10/24 09:06 98.3 57 19 125/71 (89) 95 98.3 07/09/24 20:00 Nasal Cannula* 2 28 Total Intake and Output 07/09/24 07/09/24 07/10/24 15:00 23:00 07:00 Intake Total 0 ml 450 ml Output Total 750 ml Balance -750 ml 450 ml medications Current Medications Medications Dose Ordered Sig/Damon Route Start Time Stop Time Status Last Admin Dose Admin Ondansetron HCl 4 mg Q4HP PRN IV 07/01/24 21:15 07/05/24 08:43 4 MG Atorvastatin Calcium 20 mg DAILY PO 07/02/24 10:00 07/10/24 08:46 20 MG Baclofen 10 mg Q8HP PRN PO 07/01/24 21:15 Hold 07/06/24 00:05 10 MG Lidocaine 1 patch DAILY TOP 07/02/24 10:00 07/10/24 08:47 1 PATCH Gabapentin 300 mg Q8H PO 07/01/24 21:15 07/10/24 05:37 300 MG Paroxetine HCl 20 mg DAILY PO 07/02/24 10:00 07/10/24 08:47 20 MG Albuterol 2.5 mg Q6HP PRN NEB 07/02/24 05:30 Mesalamine 800 mg TID PO 07/02/24 10:15 07/10/24 05:37 800 MG Diagnostic Test (Pha) 1 strip ACHS 07/03/24 17:00 07/10/24 06:12 1 STRIP Insulin Human Regular ACHS SC 07/03/24 17:00 07/09/24 21:24 2 UNITS Dextrose 50 ml UD PRN IV 07/03/24 12:45 Pantoprazole Sodium 40 mg DAILY IV 07/05/24 10:00 07/10/24 08:46 40 MG Atropine Sulfate 0.5 mg Q4HPRN PRN IV 07/04/24 19:45 Enoxaparin Sodium 80 mg Q12HR SC 07/04/24 23:30 Hold 07/08/24 21:21 80 MG Aspirin 81 mg DAILY PO 07/05/24 10:00 07/10/24 08:46 81 MG Vancomycin HCl 125 mg QID PO 07/05/24 18:00 07/10/24 05:37 125 MG Saccharomyces Boulardii 250 mg DAILY PO 07/06/24 10:00 07/10/24 08:46 250 MG Cholestyramine Resin 4 gm DAILY@11 PO 07/06/24 11:00 07/08/24 12:52 4 GM Acetaminophen/ Hydrocodone Bitart 1 tab Q6HP PRN PO 07/06/24 10:00 07/10/24 04:23 1 TAB Sodium Chloride 1,000 ml @ 120 mls/hr Q8H20M IV 07/07/24 09:00 07/09/24 19:20 120 MLS/HR Dicyclomine HCl 10 mg QID PRN PO 07/08/24 21:30 Heparin Sodium/ Dextrose 250 ml @ 10 mls/hr Q24H IV 07/09/24 19:00 07/09/24 18:47 10 MLS/HR objective General Appearance: alert, no distress HEENT: EOMI, PERRLA, normal external inspect of ears, no icterus, no nasal drainage Neck: no carotid bruit, no jugular venous distention (JVD), no lymphadenopathy Chest: normal thorax Respiratory: clear to auscultation, normal air movement Cardiovascular: regular rate and rhythm, no diastolic murmur, no jugular venous distention (JVD), no rub, no systolic murmur Abdominal: soft, no hepatomegaly, no mass, no splenomegaly, no tenderness Genitourinary: grossly normal external Musculoskeletal: no joint tenderness, no swelling Extremities: normal pulses, no calf tenderness, no clubbing, no cyanosis, no edema Skin: no bruising, no jaundice, no rash Neurological: alert, No focal deficit laboratory and microbiology Laboratory Tests 07/10/24 04:48 07/08/24 05:06 Test 07/08/24 05:06 Range/Units Serum Glucose 86 74-106 mg/dL Problem List 1. Recurrent UTI Monitor, send UA, IV abx 2. C. difficile colitis Oral vancomyocin 3. Mixed hyperlipidemia Monitor, medications 4. DM II with hyperglycemia Monitor, insulin ss 5. S/p colectomy Monitor 6. Hx CVA with residual weakness Monitor, restart anticoagulation 7. CAD Monitor 8. Acute systolic heart failure Monitor, Cardiology consult and diuretics as needed. 9.Multivessel disease Monitor, Cardiology consult, Higher level of care transfer for possible CABG. 10. Acute hypoxic respiratory failure Monitor, Pulmonary consult, and supplemental O2 as needed Assessment/Plan Subjective Patient is awake and alert. Objective Patient is complaining of abdominal pain. Patient states her current pain medication regimen is not enough. Patient has C. Diff colitis. Currently her number of bowel movements are decreasing. Patient remains on a heparin drip and aspirin. She has a multivessel disease and is a higher level of care transfer for possible CABG. Patient does consent to transfer. Plan Continue current treatment. Monitor daily labs. Plan for transfer for higher level of care for evaluation for CABG. Dietary Evaluation Review Comments: 1. Would change diet order to CHO 60 gm/meal, Low Fiber/Residue diet 2. Document PO intakes after each meal 3. If PO is <50% of meals consistently, consider oral nutrition supplement Expected Outcomes/Goals: Achieve adequate oral intake. Plan discussed with: Patient, Other TED HUSSEIN NP Jul 10, 2024 09:17
[2024-07-10 14:52] LABS: INR 1.11 (0.9-1.15); Prothrombin Time 11.6 sec (9.3-11.8)
[2024-07-10 14:55] LABS: Partial Thromboplastin Time 112.7 SEC (24.5-34.5)
--- NOTE | 2024-07-10 15:20 | CONS ---
Pharmacy Clinical Information: BOLUS NO TEMPLATE: SPOKE TO MARCO ANTONIO WOOD REGARDING HEPARIN DOSE CHANGE CURRENT DOSE: 1000 UNITS/HR CURRENT APTT: 112.7 ON 07/10/24 @1410 HOLD INFUSION FOR 1 HR: YES (ONLY WHEN APTT > 90.0, IF IT DOES NOT APPLY, PLEASE TAKE OUT THIS LINE) DECREASE (NEW DOSE): 700 UNITS/HR (IF APTT THERAPEUTIC, PLEASE PUT NO CHANGE) DATE AND TIME OF NEW STARTED: 07/10/24 @1600 NEXT APTT: 07/10/24 @2200 [facility] WO[facility] READ BACK NEW DOSE: 700 UNITS/HR START @1600 VIKKI HANKS PHARMACIST Jul 10, 2024 15:20
[2024-07-10] MEDS: HEPARIN DRIP/D5W 100UNITS/ML 250 ML IV SCH (16:12)
[2024-07-10] MEDS: MORPHINE SULFATE INJ 2 MG/ml SYRG IV PRN (19:51)
[2024-07-10 23:08] LABS: INR 1.05 (0.9-1.15); Partial Thromboplastin Time 48.9 SEC (24.5-34.5); Prothrombin Time 11.1 sec (9.3-11.8)
--- NOTE | 2024-07-10 23:25 | DVHPN2 ---
Progress Note - Dictate Date Seen: Jul 10, 2024 Medical Necessity Reason Pt with a Central, PICC or Fol: Yes The following are medically ne: Cowart Catheter Reason for cowart catheter: Strict I&O Subjective Patient seen and examined at bedside. Remains on supplemental oxygen Overnight events reviewed. vital signs Vital Sign Date Time Temp Pulse Resp B/P (MAP) Pulse Ox O2 Delivery O2 Flow Rate FiO2 07/10/24 21:00 98.9 73 18 101/66 (78) 91 98.9 07/10/24 20:00 Room Air* 0 21 Total Intake and Output 07/09/24 07/09/24 07/10/24 15:00 23:00 07:00 Intake Total 0 ml 450 ml Output Total 750 ml Balance -750 ml 450 ml medications Current Medications Medications Dose Ordered Sig/Damon Route Start Time Stop Time Status Last Admin Dose Admin Ondansetron HCl 4 mg Q4HP PRN IV 07/01/24 21:15 07/05/24 08:43 4 MG Atorvastatin Calcium 20 mg DAILY PO 07/02/24 10:00 07/10/24 08:46 20 MG Baclofen 10 mg Q8HP PRN PO 07/01/24 21:15 Hold 07/06/24 00:05 10 MG Lidocaine 1 patch DAILY TOP 07/02/24 10:00 07/10/24 08:47 1 PATCH Gabapentin 300 mg Q8H PO 07/01/24 21:15 07/10/24 21:05 300 MG Paroxetine HCl 20 mg DAILY PO 07/02/24 10:00 07/10/24 08:47 20 MG Albuterol 2.5 mg Q6HP PRN NEB 07/02/24 05:30 Mesalamine 800 mg TID PO 07/02/24 10:15 07/10/24 21:05 800 MG Diagnostic Test (Pha) 1 strip ACHS 07/03/24 17:00 07/10/24 21:08 1 STRIP Insulin Human Regular ACHS SC 07/03/24 17:00 07/10/24 21:10 2 UNITS Dextrose 50 ml UD PRN IV 07/03/24 12:45 Pantoprazole Sodium 40 mg DAILY IV 07/05/24 10:00 07/10/24 08:46 40 MG Atropine Sulfate 0.5 mg Q4HPRN PRN IV 07/04/24 19:45 Enoxaparin Sodium 80 mg Q12HR SC 07/04/24 23:30 Hold 07/08/24 21:21 80 MG Aspirin 81 mg DAILY PO 07/05/24 10:00 07/10/24 08:46 81 MG Vancomycin HCl 125 mg QID PO 07/05/24 18:00 07/10/24 21:05 125 MG Saccharomyces Boulardii 250 mg DAILY PO 07/06/24 10:00 07/10/24 08:46 250 MG Cholestyramine Resin 4 gm DAILY@11 PO 07/06/24 11:00 07/10/24 11:43 4 GM Acetaminophen/ Hydrocodone Bitart 1 tab Q6HP PRN PO 07/06/24 10:00 07/10/24 04:23 1 TAB Sodium Chloride 1,000 ml @ 120 mls/hr Q8H20M IV 07/07/24 09:00 07/10/24 19:49 120 MLS/HR Dicyclomine HCl 10 mg QID PRN PO 07/08/24 21:30 Heparin Sodium/ Dextrose 250 ml @ 7 mls/hr Q24H IV 07/10/24 16:00 07/10/24 16:12 7 MLS/HR Morphine Sulfate 2 mg Q4HP PRN IV 07/10/24 17:00 07/10/24 19:51 2 MG objective Gen.: Patient lying in bed in no apparent distress. On supplemental oxygen. Head: Normocephalic, atraumatic. Eyes: EOMI/PERRLA. Ears: Normal hearing. Normal anatomy. Neck/trachea: Trachea midline, supple. Nose: Normal external anatomy. Mouth: Moist mucous membranes. Chest: Decreased air entry bilaterally. No wheezing or rhonchi. Cardiovascular: Positive S1, positive S2. Regular rate and rhythm. Abdomen: Positive bowel sounds in all 4 quadrants. Soft, non-tender, non- distended. : Deferred. Rectal: Deferred. Skin: Warm, dry. Intact. Extremities: 2+ radial pulses bilaterally. No lower extremity edema. Neuro: Awake, alert, oriented x3. No gross motor or sensory deficits. Cranial nerves II through XII intact. Gait not assessed. laboratory and microbiology Laboratory Tests 07/10/24 04:48 07/08/24 05:06 Test 07/08/24 05:06 Range/Units Serum Glucose 86 74-106 mg/dL Assessment/Plan Impression: Respiratory distress, resolved Ruled out foreign body Asthma exacerbation Obesity Wheezing Urinary tract infection S/p colectomy Acute on chronic ulcerative colitis. Events: Remains on supplemental oxygen, 2 LPM NC Taper O2 as tolerated Head of bed elevation Aspiration precautions Plan for HLOC for coronary artery bypass grafting Cardiology recs appreciated Positive C. difficile Continue antibiotics, PO Vancomycin ID recs appreciated. Incentive spirometry Therapeutic Lovenox Accu-Cheks, ISS. Monitor blood pressure Pain control Avoid oversedation Protonix for GI prophylaxis Labs and imaging reviewed. Rest of plan as noted below. Plan: S/p extubation on 07/04/24 Supplemental oxygen Titrate to keep O2 sats above 92%. S/p bronchoscopy on 07/03, no evidence of foreign body in the lung. Scant bilateral lower lobe secretions were noted. Patient tolerated the procedure well. Received IV steroids Continue antibiotics. Bronchodilators PRN Pressors as necessary for hemodynamic support Titrate to keep mean arterial pressure greater than 65 mmHg. Pain control Avoid oversedation Surgery recs appreciated. Monitor renal function Monitor electrolytes. Supplement as necessary. Monitor ins and outs. Diet and lifestyle modifications for weight reduction Obesity - complicates all care DVT prophylaxis - Lovenox SC. Prognosis: Poor given patient's multiple co-morbidities. Rest of plan per hospitalist and other consultants. Thank you, Dr. Hylton, for allowing me to participate in this patient's care. Further recommendations will depend on the patient's clinical course. Please do not hesitate to contact me if you have any questions or concerns. This medical document was created using an electronic medical record system with [employer] dictation system. Although these documentations are being carefully reviewed, there may still be some phonetic and typographical changes. The errors are purely typographical, due to imperfection on the software program, and do not reflect any compromise in the patient's medical care. Dietary Evaluation Review Comments: 1. Would change diet order to CHO 60 gm/meal, Low Fiber/Residue diet 2. Document PO intakes after each meal 3. If PO is <50% of meals consistently, consider oral nutrition supplement Expected Outcomes/Goals: Achieve adequate oral intake. Plan discussed with: Patient, Other (RN) LUISA CHILDERS MD Jul 10, 2024 23:25
[2024-07-11] VITALS (13 sets, daily range): BP systolic 93–110; BP diastolic 49–68; PULSE 60–74; RESP 16–18; TEMP 97.8–98.8; O2SAT 93–100
[2024-07-11] MEDS: HEPARIN DRIP/D5W 100UNITS/ML 250 ML IV SCH ×4 (00:07→22:37)
--- NOTE | 2024-07-11 06:43 | DVHPN2 ---
Progress Note - Dictate Date Seen: Jul 11, 2024 Medical Necessity Reason Pt with a Central, PICC or Fol: Yes The following are medically ne: Cowart Catheter Reason for cowart catheter: Strict I&O vital signs Vital Sign Date Time Temp Pulse Resp B/P (MAP) Pulse Ox O2 Delivery O2 Flow Rate FiO2 07/11/24 06:33 96 Nasal Cannula 2.0 07/11/24 06:33 28 07/11/24 05:00 98.7 63 17 105/66 (79) 98.7 Total Intake and Output 07/10/24 07/10/24 07/11/24 15:00 23:00 07:00 Intake Total 90 ml 1054 ml 2240 ml Output Total 2250 ml 900 ml Balance 90 ml -1196 ml 1340 ml medications Current Medications Medications Dose Ordered Sig/Damon Route Start Time Stop Time Status Last Admin Dose Admin Ondansetron HCl 4 mg Q4HP PRN IV 07/01/24 21:15 07/05/24 08:43 4 MG Atorvastatin Calcium 20 mg DAILY PO 07/02/24 10:00 07/10/24 08:46 20 MG Baclofen 10 mg Q8HP PRN PO 07/01/24 21:15 Hold 07/06/24 00:05 10 MG Lidocaine 1 patch DAILY TOP 07/02/24 10:00 07/10/24 08:47 1 PATCH Gabapentin 300 mg Q8H PO 07/01/24 21:15 07/11/24 04:18 300 MG Paroxetine HCl 20 mg DAILY PO 07/02/24 10:00 07/10/24 08:47 20 MG Albuterol 2.5 mg Q6HP PRN NEB 07/02/24 05:30 Mesalamine 800 mg TID PO 07/02/24 10:15 07/11/24 04:17 800 MG Diagnostic Test (Pha) 1 strip ACHS 07/03/24 17:00 07/11/24 05:58 1 STRIP Insulin Human Regular ACHS SC 07/03/24 17:00 07/10/24 21:10 2 UNITS Dextrose 50 ml UD PRN IV 07/03/24 12:45 Pantoprazole Sodium 40 mg DAILY IV 07/05/24 10:00 07/10/24 08:46 40 MG Atropine Sulfate 0.5 mg Q4HPRN PRN IV 07/04/24 19:45 Enoxaparin Sodium 80 mg Q12HR SC 07/04/24 23:30 Hold 07/08/24 21:21 80 MG Aspirin 81 mg DAILY PO 07/05/24 10:00 07/10/24 08:46 81 MG Vancomycin HCl 125 mg QID PO 07/05/24 18:00 07/11/24 04:18 125 MG Saccharomyces Boulardii 250 mg DAILY PO 07/06/24 10:00 07/10/24 08:46 250 MG Cholestyramine Resin 4 gm DAILY@11 PO 07/06/24 11:00 07/10/24 11:43 4 GM Acetaminophen/ Hydrocodone Bitart 1 tab Q6HP PRN PO 07/06/24 10:00 07/10/24 04:23 1 TAB Sodium Chloride 1,000 ml @ 120 mls/hr Q8H20M IV 07/07/24 09:00 07/11/24 04:40 120 MLS/HR Dicyclomine HCl 10 mg QID PRN PO 07/08/24 21:30 Morphine Sulfate 2 mg Q4HP PRN IV 07/10/24 17:00 07/11/24 04:16 2 MG Heparin Sodium/ Dextrose 250 ml @ 9 mls/hr Q24H IV 07/10/24 23:45 07/11/24 00:07 9 MLS/HR laboratory and microbiology Laboratory Tests 07/08/24 05:06 Test 07/08/24 05:06 Range/Units Serum Glucose 86 74-106 mg/dL Assessment/Plan Patient is a 59-year-old female who originally presented to the hospital on July 01, 2024 for lower abdominal pain. She also had nausea and diarrhea that time of presentation. It is of note that the patient does have history of inflammatory bowel disease (ulcerative colitis/Crohn's disease) and presentation was assessed somehow related to the inflammatory bowel disease. Since arrival, the patient was intubated at that point and later extubated. She actually had some EGD also. Cardiology was involved (on July 05, 2024) for an episode of sinus bradycardia for which patient was temporarily on Isuprel drip. She mentions that she has been experiencing some chest tightness for the past 2 days also. She denies previous chest tightness. She is known to our practice from before. She does have history of HFpEF. She is being managed in [facility]/ICU. She is found to have increased troponin and has been started on aspirin/Lovenox. She does have history of CVA and carotid disease. She has had carotid endarterectomy (right side) before. There is no previous history of coronary artery disease. Nuclear stress test of December 2021 had been nonrevealing. She is kept on aspirin/Plavix as outpatient (old CVA). Not in acute distress. No JVD. Mucosa is pink and dry. No carotid bruit. Lungs are clear to auscultation. Not using accessory muscles of breathing. Cardiac: Regular, no thrills/gallop. Abdomen is soft. Lower abdominal tenderness can be elicited. There is no rebound. Bowel sound is positive There was no gross mass/hepatomegaly. Extremities do not reveal edema. Dorsalis pedis is 2+ bilateral. Left-sided hemiparesis can somehow be observed. 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 She has had kidney stones/hydronephrosis/hydroureter before. Uses a walker for ambulation (secondary to old CVA). Echocardiogram of December 16, 2022 (performed in [facility]) revealed ejection fraction of 60%, mild TR and right ventricular systolic pressure of 27 mm Hg. Echocardiogram of October 18, 2023 reported ejection fraction 55-60%, mild MR/TR and right ventricular systolic pressure of 25 mm Echocardiogram of May 05, 2024 revealed ejection fraction of 50-55%, normal diastolic, trace MR/TR and right ventricular systolic pressure of 28 mm Hg Nuclear stress test of January 03, 2022 (performed as outpatient) revealed ejection fraction of 80% and no evidence for ischemia/scar. TSH: 1.91 BNP: 638.05 - 492.56 Troponin (high sensitive): 1283 - 1360 - 1105 - 1049 1247 Urine culture was positive for Gram-positive annika Urine toxicology was positive for opiates Stool was positive for CDT toxin Chest x-ray reported: IMPRESSION: 1. Endotracheal tube 2.7 cm above the dante. 2. Enteric tube in the stomach 3. Bibasilar areas of atelectasis or infiltrate. Repeat chest x-ray reported: IMPRESSION: Pulmonary venous congestion. CT of the head revealed: IMPRESSION: 1. No acute intracranial abnormality. CT of the abdomen and pelvis revealed: IMPRESSION: 1. There is no acute process in the abdomen and pelvis. 2. Scattered colonic diverticula without evidence of acute diverticulitis. 3. Stable fibroid uterus. EKG reveals sinus rhythm, nonspecific ST-T changes Tele reveals sinus bradycardia and later sinus rhythm Echocardiogram reported: Left ventricle: Left ventricle wall is normal-sized. LVEF is around 40%. Mild diffuse hypokinesis of left ventricle was seen. Right ventricle was normal-sized with normal systolic function. Both atria were normal-sized. Aortic valve was trileaflet. There was no aortic insufficiency/stenosis. There was trace mitral/tricuspid regurgitation. Pulmonary valve was not well visualized. IVC was dilated. Right ventricular systolic pressure was assessed at 30 mm Hg. There was no pericardial effusion. Cardiac cath revealed: Diagnosis: Triple-vessel coronary artery disease, LVEF of 45% with LVEDP of 10 mm Hg; Cardiac suggestion for management: Transfer to [facility] level of care for Cardiothoracic surgery evaluation/bypass surgery; Aspirin for now; Heparin drip for now Patient is a 59-year-old female who originally presented with abdominal pain/nausea/diarrhea. Assessment of the presentation has been acute inflammatory bowel disease. Patient was intubated and later extubated for respiratory failure. Patient did have EGD which found gastritis. Patient did have an episode of sinus bradycardia which improved on Isuprel at 1st and later resolved (could it have been secondary to significant abdominal pain/vagal induced?). Patient is found to have abnormal troponin (relatively stable and peaked at 1360) with some chest discomfort. Presentation could be considered non-STEMI. Recognizing comorbidities and the significant abdominal pain during this presentation, stress-induced cardiomyopathy can not be ruled out. Echocardiogram has revealed decrease in systolic function (diffuse hypokinesis). Patient with repeated significant diarrhea (CDT colitis) and C was postponed at first. Found to have multivessel CAD and suggestion is to transfer to [facility] for bypass surgery. Abdominal pain Acute inflammatory bowel disease, exacerbation C-Diff Colitis UTI, complicated Acute respiratory failure, status post intubation, extubation Systolic heart failure, acute, new finding Abnormal troponin Non-STEMI Sinus bradycardia, resolved Intractable abdominal pain History of old CVA with left hemiparesis History of Crohn disease/ulcerative colitis Morbid obesity Constipation Hyperlipidemia Status post carotid endarterectomy Diverticular disease, history of Cardiac suggestion for management: Manage in tele Follow-up electrolytes and kidney function tests and correct abnormalities. Keep potassium above 4 and magnesium above 2 Heparin drip Aspirin Transfer to high level of care for Cardiothoracic surgery evaluation/bypass surgery; Aspirin for now; Heparin drip for now (as per communications, [facility] has accepted the patient) Evaluation and management of abdominal pain/inflammatory bowel disease as per GI/primary team Evaluation and management of UTI as per primary team Evaluation and management of C-Diff Colitis as per primary team Pulmonary follow-up for recent history of acute respiratory failure Pain management as per primary team Further evaluation and management depends on the above and clinical course A total of 55 minutes was spent reviewing the patient record, examining the patient, making a diagnostic and therapeutic plan, discussing this plan with medical personnel, following up on diagnostic studies and following the patient for clinical stability excluding any and all procedures. At least 50% of this time was spent in direct, [id number] contact. Thank you for allowing me to participate in this patient's care. Further recommendations will depend on patient's clinical course. Please do not hesitate to contact me if you have any questions or concerns. This medical document was created using electronic medical record system with [employer] computerized dictation system. Although this document has been carefully reviewed, there may still be some phonetic and typographical errors. These areas are purely typographical due to the imperfection of the software programs, and do not reflect any compromise in the patient's medical care Dietary Evaluation Review Comments: 1. Would change diet order to CHO 60 gm/meal, Low Fiber/Residue diet 2. Document PO intakes after each meal 3. If PO is <50% of meals consistently, consider oral nutrition supplement Expected Outcomes/Goals: Achieve adequate oral intake. Plan discussed with: Patient, Other (nurse) BALTAZAR SOMMERS MD Jul 11, 2024 06:43
[2024-07-11 06:49] LABS: Basophils # (auto) 0.1 10 ^3/uL (0-0.2); Basophils % (auto) 0.6 % (0.0-2.0); Eosinophils # (auto) 0.2 10 ^3/uL (0-0.8); Hematocrit 34.9 % (36.0-46.0); Lymphocytes # (auto) 2.4 10 ^3/uL (0.4-5.4); Lymphocytes % (auto) 29.7 % (10.0-50.0); Mean Corpuscular Hemoglobin 30.7 pg (28.0-32.0); Mean Corpuscular Hgb Conc. 34.5 g/dL (32.0-36.0); Mean Corpuscular Volume 89.2 fL (80.0-100.0); Monocytes # (auto) 0.3 10 ^3/uL (0-1.3); Monocytes % (auto) 3.8 % (0.0-12.0); Neutrophils # (auto) 5.1 10 ^3/uL (1.6-8.6); Neutrophils % (auto) 62.9 % (37.0-80.0); Nucleated Red Blood Cells % 0.1 %; Platelet Count (auto) 130 10^3/uL (140-450); Red Blood Cells 3.91 10^6/uL (4.0-5.20); Red Cell Distribution Width 15.2 % (11.8-14.3); White Blood Cell 8.2 10^3/uL (4.4-10.8)
[2024-07-11 07:22] LABS: INR 1.08 (0.9-1.15); Prothrombin Time 11.4 sec (9.3-11.8)
[2024-07-11 07:28] LABS: Partial Thromboplastin Time 79.6 SEC (24.5-34.5)
--- NOTE | 2024-07-11 12:26 | DVHPN2 ---
Progress Note - Dictate Medical Necessity Reason Pt with a Central, PICC or Fol: Yes The following are medically ne: Cowart Catheter Reason for cowart catheter: Strict I&O vital signs Vital Sign Date Time Temp Pulse Resp B/P (MAP) Pulse Ox O2 Delivery O2 Flow Rate FiO2 07/11/24 10:00 93 Nasal Cannula* 2 28 07/11/24 09:20 64 16 104/64 07/11/24 09:00 97.9 97.9 Total Intake and Output 07/10/24 07/10/24 07/11/24 15:00 23:00 07:00 Intake Total 90 ml 1054 ml 2240 ml Output Total 2250 ml 900 ml Balance 90 ml -1196 ml 1340 ml medications Current Medications Medications Dose Ordered Sig/Damon Route Start Time Stop Time Status Last Admin Dose Admin Ondansetron HCl 4 mg Q4HP PRN IV 07/01/24 21:15 07/05/24 08:43 4 MG Atorvastatin Calcium 20 mg DAILY PO 07/02/24 10:00 07/11/24 08:49 20 MG Baclofen 10 mg Q8HP PRN PO 07/01/24 21:15 Hold 07/06/24 00:05 10 MG Lidocaine 1 patch DAILY TOP 07/02/24 10:00 07/11/24 08:49 1 PATCH Gabapentin 300 mg Q8H PO 07/01/24 21:15 07/11/24 04:18 300 MG Paroxetine HCl 20 mg DAILY PO 07/02/24 10:00 07/11/24 08:49 20 MG Albuterol 2.5 mg Q6HP PRN NEB 07/02/24 05:30 Mesalamine 800 mg TID PO 07/02/24 10:15 07/11/24 04:17 800 MG Diagnostic Test (Pha) 1 strip ACHS 07/03/24 17:00 07/11/24 11:35 1 STRIP Insulin Human Regular ACHS SC 07/03/24 17:00 07/10/24 21:10 2 UNITS Dextrose 50 ml UD PRN IV 07/03/24 12:45 Pantoprazole Sodium 40 mg DAILY IV 07/05/24 10:00 07/11/24 08:49 40 MG Atropine Sulfate 0.5 mg Q4HPRN PRN IV 07/04/24 19:45 Enoxaparin Sodium 80 mg Q12HR SC 07/04/24 23:30 Hold 07/08/24 21:21 80 MG Aspirin 81 mg DAILY PO 07/05/24 10:00 07/11/24 08:49 81 MG Vancomycin HCl 125 mg QID PO 07/05/24 18:00 07/11/24 11:34 125 MG Saccharomyces Boulardii 250 mg DAILY PO 07/06/24 10:00 07/11/24 08:49 250 MG Cholestyramine Resin 4 gm DAILY@11 PO 07/06/24 11:00 07/11/24 11:34 4 GM Acetaminophen/ Hydrocodone Bitart 1 tab Q6HP PRN PO 07/06/24 10:00 07/10/24 04:23 1 TAB Sodium Chloride 1,000 ml @ 120 mls/hr Q8H20M IV 07/07/24 09:00 07/11/24 04:40 120 MLS/HR Dicyclomine HCl 10 mg QID PRN PO 07/08/24 21:30 Morphine Sulfate 2 mg Q4HP PRN IV 07/10/24 17:00 07/11/24 08:50 2 MG Heparin Sodium/ Dextrose 250 ml @ 7 mls/hr Q24H IV 07/11/24 08:45 07/11/24 08:48 7 MLS/HR objective General Appearance: alert, no distress HEENT: EOMI, PERRLA, normal external inspect of ears, no icterus, no nasal drainage Neck: no carotid bruit, no jugular venous distention (JVD), no lymphadenopathy Chest: normal thorax Respiratory: clear to auscultation, normal air movement Cardiovascular: regular rate and rhythm, no diastolic murmur, no jugular venous distention (JVD), no rub, no systolic murmur Abdominal: soft, no hepatomegaly, no mass, no splenomegaly, no tenderness Genitourinary: grossly normal external Musculoskeletal: no joint tenderness, no swelling Extremities: normal pulses, no calf tenderness, no clubbing, no cyanosis, no edema Skin: no bruising, no jaundice, no rash Neurological: alert, No focal deficit laboratory and microbiology Laboratory Tests 07/11/24 05:58 07/08/24 05:06 Test 07/08/24 05:06 Range/Units Serum Glucose 86 74-106 mg/dL Problem List 1. Recurrent UTI Monitor, send UA, IV abx 2. C. difficile colitis Oral vancomyocin 3. Mixed hyperlipidemia Monitor, medications 4. DM II with hyperglycemia Monitor, insulin ss 5. S/p colectomy Monitor 6. Hx CVA with residual weakness Monitor, restart anticoagulation 7. CAD Monitor 8. Acute systolic heart failure Monitor, Cardiology consult and diuretics as needed. 9.Multivessel disease Monitor, Cardiology consult, Higher level of care transfer for possible CABG. 10. Acute hypoxic respiratory failure Monitor, Pulmonary consult, and supplemental O2 as needed Assessment/Plan Subjective Patient is awake and alert. Objective Patient is complaining of abdominal pain. Patient states her current pain medication regimen is not enough. Patient has C. Diff colitis. Currently her number of bowel movements are decreasing. Patient remains on a heparin drip and aspirin. She has a multivessel disease and is a higher level of care transfer for possible CABG. Patient does consent to transfer. Plan Continue current treatment. Monitor daily labs. Plan for transfer for higher level of care for evaluation for CABG. Dietary Evaluation Review Comments: 1. Would change diet order to CHO 60 gm/meal, Low Fiber/Residue diet 2. Document PO intakes after each meal 3. If PO is <50% of meals consistently, consider oral nutrition supplement Expected Outcomes/Goals: Achieve adequate oral intake. TED HUSSEIN NP Jul 11, 2024 12:26
[2024-07-11 14:53] LABS: INR 1.08 (0.9-1.15); Partial Thromboplastin Time 32.2 SEC (24.5-34.5); Prothrombin Time 11.4 sec (9.3-11.8)
--- NOTE | 2024-07-11 15:12 | CONS ---
Pharmacy Clinical Information: BOLUS 5000 UNITS HEPARIN IV AND INCREASE HEPARIN DRIP RATE TO 1000 UNITS/HR = 10 ML/HR PER APTT OF 32.2 (SUBTHERAPEUTIC) NEXT APTT DRAW SCHEDULED FOR 2100 PER RX PROTOCOL ARLEY MCMANUS PHARMACIST Jul 11, 2024 15:12
[2024-07-11] MEDS: HEPARIN SODIUM (PORCINE) 5000 UNITS/ML 1ML VIAL IV ONE (16:00)
--- NOTE | 2024-07-11 17:38 | DVHPN2 ---
Progress Note - Dictate Date Seen: Jul 11, 2024 Medical Necessity Reason Pt with a Central, PICC or Fol: Yes The following are medically ne: Coawrt Catheter Reason for cowart catheter: Strict I&O Subjective She has multiple vessel coronary disease and is awaiting [facility] transfer for cardiac surgery Patient stated that [facility] accepted her but they are waiting for a bed No bowel movement recorded today, she had three loose bowel movements yesterday Stool for C diff was positive, patient has been started on oral vancomycin Last colonoscopy about a year ago at [facility] vital signs Vital Sign Date Time Temp Pulse Resp B/P (MAP) Pulse Ox O2 Delivery O2 Flow Rate FiO2 07/11/24 17:00 98.2 68 16 93/49 (64) 96 98.2 07/11/24 10:00 Nasal Cannula* 2 28 Total Intake and Output 07/10/24 07/10/24 07/11/24 15:00 23:00 07:00 Intake Total 90 ml 1054 ml 2240 ml Output Total 2250 ml 900 ml Balance 90 ml -1196 ml 1340 ml medications Current Medications Medications Dose Ordered Sig/Daomn Route Start Time Stop Time Status Last Admin Dose Admin Ondansetron HCl 4 mg Q4HP PRN IV 07/01/24 21:15 07/05/24 08:43 4 MG Atorvastatin Calcium 20 mg DAILY PO 07/02/24 10:00 07/11/24 08:49 20 MG Baclofen 10 mg Q8HP PRN PO 07/01/24 21:15 Hold 07/06/24 00:05 10 MG Lidocaine 1 patch DAILY TOP 07/02/24 10:00 07/11/24 08:49 1 PATCH Gabapentin 300 mg Q8H PO 07/01/24 21:15 07/11/24 13:06 300 MG Paroxetine HCl 20 mg DAILY PO 07/02/24 10:00 07/11/24 08:49 20 MG Albuterol 2.5 mg Q6HP PRN NEB 07/02/24 05:30 Mesalamine 800 mg TID PO 07/02/24 10:15 07/11/24 13:07 800 MG Diagnostic Test (Pha) 1 strip ACHS 07/03/24 17:00 07/11/24 17:12 1 STRIP Insulin Human Regular ACHS SC 07/03/24 17:00 07/11/24 17:12 2 UNITS Dextrose 50 ml UD PRN IV 07/03/24 12:45 Pantoprazole Sodium 40 mg DAILY IV 07/05/24 10:00 07/11/24 08:49 40 MG Atropine Sulfate 0.5 mg Q4HPRN PRN IV 07/04/24 19:45 Enoxaparin Sodium 80 mg Q12HR SC 07/04/24 23:30 Hold 07/08/24 21:21 80 MG Aspirin 81 mg DAILY PO 07/05/24 10:00 07/11/24 08:49 81 MG Vancomycin HCl 125 mg QID PO 07/05/24 18:00 07/11/24 11:34 125 MG Saccharomyces Boulardii 250 mg DAILY PO 07/06/24 10:00 07/11/24 08:49 250 MG Cholestyramine Resin 4 gm DAILY@11 PO 07/06/24 11:00 07/11/24 11:34 4 GM Acetaminophen/ Hydrocodone Bitart 1 tab Q6HP PRN PO 07/06/24 10:00 07/10/24 04:23 1 TAB Sodium Chloride 1,000 ml @ 120 mls/hr Q8H20M IV 07/07/24 09:00 07/11/24 13:06 120 MLS/HR Dicyclomine HCl 10 mg QID PRN PO 07/08/24 21:30 Morphine Sulfate 2 mg Q4HP PRN IV 07/10/24 17:00 07/11/24 15:02 2 MG Heparin Sodium/ Dextrose 250 ml @ 10 mls/hr Q24H IV 07/11/24 15:15 07/11/24 16:06 10 MLS/HR objective General Appearance: Alert, Oriented X3, Cooperative, on face mask HEENT: Atraumatic, PERRLA, EOMI, Mucous membrane moist/pink Respiratory: Clear to auscultation, Normal air movement Cardiovascular: Regular rate, Normal S1, Normal S2, No murmurs, no chest wall tenderness Abdominal: Soft obese nontender, bowel sounds present, no scars noted Extremities: No clubbing, No cyanosis, No edema, Normal pulses, No tenderness/swelling Skin: No rashes, No breakdown, No significant lesion Neuro: Normal gait, Normal speech, Strength at 5/5 X4 ext, Normal tone, Sensation intact, Cranial nerves 3-12 NL, Reflexes 2+ Psych/Mental Status: Mental status NL, Mood NL laboratory and microbiology Laboratory Tests 07/11/24 05:58 07/08/24 05:06 Test 07/08/24 05:06 Range/Units Serum Glucose 86 74-106 mg/dL Problems(with codes): (1) Diabetes (2) Obesity (3) Chest pain (4) C. difficile colitis (5) Intractable abdominal pain (6) Chronic ulcerative colitis Prognosis Plan Advance diet as tolerated Cut back on the cholestyramine if the diarrhea improves Patient is on oral vancomycin and probiotics Awaiting transfer to [place] for cardiac surgery Dietary Evaluation Review Comments: 1. Would change diet order to CHO 60 gm/meal, Low Fiber/Residue diet 2. Document PO intakes after each meal 3. If PO is <50% of meals consistently, consider oral nutrition supplement Expected Outcomes/Goals: Achieve adequate oral intake. Plan discussed with: Patient, Spouse ISRAEL FARAH MD Jul 11, 2024 17:38
[2024-07-11 22:06] LABS: INR 1.07 (0.9-1.15); Prothrombin Time 11.3 sec (9.3-11.8)
[2024-07-11 22:21] LABS: Partial Thromboplastin Time 86.5 SEC (24.5-34.5)
--- NOTE | 2024-07-11 23:20 | DVHDS2 ---
Discharge Summary Date of Admission Jul 01, 2024 at 21:01 Date of Discharge: Jul 11, 2024 Labs/Diagnostic Data: Laboratory Results Test 07/11/24 21:28 07/11/24 21:00 07/11/24 05:58 07/08/24 05:06 POC Glucose 144 mg/dl (70-106) Prothrombin Time 11.3 sec (9.3-11.8) Prothrombin Time INR 1.07 (0.9-1.15) Activated Partial Thromboplast Time 86.5 SEC (24.5-34.5) White Blood Count 8.2 10^3/uL (4.4-10.8) Red Blood Count 3.91 10^6/uL (4.0-5.20) Hemoglobin 12.0 g/dL (12.2-16.2) Hematocrit 34.9 % (36.0-46.0) Mean Corpuscular Volume 89.2 fL (80.0-100.0) Mean Corpuscular Hemoglobin 30.7 pg (28.0-32.0) Mean Corpuscular Hemoglobin Concent 34.5 g/dL (32.0-36.0) Red Cell Distribution Width 15.2 % (11.8-14.3) Platelet Count 130 10^3/uL (140-450) Mean Platelet Volume 9.0 fL (6.9-10.8) Neutrophils (%) (Auto) 62.9 % (37.0-80.0) Lymphocytes (%) (Auto) 29.7 % (10.0-50.0) Monocytes (%) (Auto) 3.8 % (0.0-12.0) Eosinophils (%) (Auto) 3.0 % (0.0-7.0) Basophils (%) (Auto) 0.6 % (0.0-2.0) Neutrophils # (Auto) 5.1 10 ^3/uL (1.6-8.6) Lymphocytes # (Auto) 2.4 10 ^3/uL (0.4-5.4) Monocytes # (Auto) 0.3 10 ^3/uL (0-1.3) Eosinophils # (Auto) 0.2 10 ^3/uL (0-0.8) Basophils # (Auto) 0.1 10 ^3/uL (0-0.2) Nucleated Red Blood Cells 0.1 % Sodium Level 143 mmol/L (136-145) Potassium Level 3.5 mmol/L (3.5-5.1) Chloride Level 109 mmol/L (98-107) Carbon Dioxide Level 27 mmol/L (20-31) Anion Gap 7 (5-15) Blood Urea Nitrogen 9 mg/dL (9-23) Creatinine 0.64 mg/dL (0.550-1.02) Glomerular Filtration Rate Calc 100 mL/min (>90) BUN/Creatinine Ratio 14.1 (10.0-20.0) Serum Glucose 86 mg/dL (74-106) Calcium Level 8.4 mg/dL (8.7-10.4) Magnesium Level 2.2 mg/dL (1.6-2.6) Total Bilirubin 0.3 mg/dL (0.2-1.0) Aspartate Amino Transferase (AST) 11 U/L (13-40) Alanine Aminotransferase (ALT) 17 U/L (7-40) Alkaline Phosphatase 92 U/L (46-116) Total Protein 5.0 g/dL (5.7-8.2) Albumin 3.4 g/dL (3.2-4.8) Test 07/05/24 12:56 07/05/24 10:54 07/05/24 05:42 07/04/24 23:04 Lactic Acid Level 2.1 mmol/L (0.4-2.0) Troponin I High Sensitivity 1247 ng/L (</=34) B-Type Natriuretic Peptide 492.56 pg/mL (0-100) D-Dimer, Quantitative 0.36 mg/L FEU (0.0-0.49) Test 07/04/24 11:20 07/04/24 10:41 07/02/24 10:22 07/02/24 06:40 Blood Gas Specimen Type Arterial Blood Gas Sample Site Right brachial Blood Gas Patient Temperature 37.0 Arterial Blood Date Drawn [id number] Arterial Blood pH 7.539 (7.350-7.450) Arterial Blood Partial Pressure CO2 26.7 mmHg (32.0-45.0) Arterial Blood Partial Pressure O2 84.5 mmHg (83.0-108.0) Arterial Blood HCO3 22.3 mmol/L (21.0-28.0) Arterial Blood Oxygen Saturation 96.7 % (94.0-98.0) Arterial Blood Base Excess 1.0 mmol/L (-2.0-3.0) Arterial Blood Oxyhemoglobin 96.1 % (94.0-98.0) Arterial Blood Carboxyhemoglobin 0.2 % (0.5-1.5) Arterial Blood Methemoglobin 0.4 % (0.0-1.5) Colby Test N/a Blood Gas Total Hemoglobin 13.70 g/dL (12.0-16.0) Blood Gas Modality Vent - cpap FiO2 % 30.0 Blood Gas Pressure Support 8 Blood Gas PEEP or CPAP 5.0 Stool pH 6.0 (7.0-7.5) Stool Occult Blood Negative (Negative) Stool Occult Blood Sample #3 (Negative) Stool for White Cells None seen Urine Color Light-yellow (Yellow) Urine Clarity Turbid (Clear) Urine pH 5.5 (5.0-9.0) Urine Specific [place] 1.026 (1.001-1.035) Urine Protein Trace (Negative) Urine Ketones 1+ (Negative) Urine Blood Negative /uL (Negative) Urine Nitrite Negative (Negative) Urine Bilirubin Negative (Negative) Urine Urobilinogen Normal mg/dL (Negative) Urine Leukocyte Esterase 1+ /uL (Negative) Urine RBC 2 /hpf (0 - 4) Urine Microscopic WBC 9 /HPF (0-5) Urine Squamous Epithelial Cells Few /hpf (<5) Urine Bacteria None seen /hpf (None Seen) Urine Mucus Few (None Seen) Urine Yeast (Budding) Occasional /hpf (None Urine Glucose Normal mg/dL (Normal) Urine Opiates Screen Pos (NEGATIVE) Urine Fentanyl Screen Neg (NEGATIVE) Urine Barbiturates Screen Neg (NEGATIVE) Urine Phencyclidine Screen Neg (NEGATIVE) Urine Amphetamines Screen Neg (NEGATIVE) Urine Benzodiazepines Screen Neg (NEGATIVE) Urine Cocaine Screen Neg (NEGATIVE) Urine Cannabinoids Screen Neg (NEGATIVE) Erythrocyte Sedimentation Rate 8 mm/hr (0-20) C-Reactive Protein High Sensitivity 0.45 mg/dL (<1.0) Test 07/01/24 16:56 07/01/24 16:43 Hemoglobin A1c 6.9 % A1C (<5.7) Triglycerides Level 164 mg/dL (< 150) Cholesterol Level 158 mg/dL (< 200) LDL Cholesterol 102 mg/dL (< 100) HDL Cholesterol 36 mg/dL (40-59) Thyroid Stimulating Hormone (TSH) 1.91 uIU/mL (0.55-4.78) Lipase 26 U/L (12-53) Other Laboratory Tests 07/11/24 05:58 07/08/24 05:06 Brief Hx & Hospital Course: Patient was admitted on July 01, 2024, for complaint of abdominal pain most likely from C. difficile colitis and recurrent UTI. Patient was seen by infectious disease. Patient also had NSTEMI and was seen by Dr. Sabillon. Status post angiogram revealed small vessel disease. Patient will be transferred to higher level of care, [facility], for consideration and possible open heart surgery for small vessel disease. Patients daughter Dina was updated regarding the plan of care. Patient will transfer back once procedures are complete and once she is stable for transfer. There were no complaints or new complaints upon discharge, all questions and concerns were answered. Patient was advised to return to the ER or call 911 if any headaches, dizziness, shortness of breath, chest pain, bleeding, fevers, or worsening of medical condition. Patient/Family was counseled about treatment plan, medications, possible side effects, patientverbalized understanding. All questions were answered to the best of my ability. The patient symptoms improved and they are okay to be DC. Condition at Discharge: Stable Final Diagnosis/Problems List DC to [facility] for CABG CAD small vessel disease Recurrent UTI C. difficile colitis Mixed hyperlipidemia DM II with hyperglycemia S/p colectomy Hx CVA with residual weakness Acute systolic heart failure Multivessel disease Acute hypoxic respiratory failure Discharge Disposition: Acute Care Facility Discharge Instruct/Medications Diet: Cardiac 2g Na,low cholest Activity: No Restrictions, As Tolerated Discharge Statement: "Patient was advised to return to the ER or call 911 if any headaches, dizziness, shortness of breath, chest pain, abdominal pain, bleeding, fevers, or worsening of medical condition. Patient was counseled about treatment plan, medications, possible side effects, patientverbalized understanding. All questions were answered to the best of my ability. This discharge took greater then 30 minutes in planning, reviewing documentation, counseling the patient, and discussing with other team members." ASSESSMENT ASSESSMENT Assessment DC to [facility] for CABG CAD small vessel disease Cdiff Recurrent UTI TED HUSSEIN NP Jul 11, 2024 23:20
[2024-07-12] VITALS (9 sets, daily range): BP systolic 99–120; BP diastolic 54–73; PULSE 61–75; RESP 15–18; TEMP 97.5–98.3; O2SAT 95–99
[2024-07-12 06:17] LABS: Basophils # (auto) 0 10 ^3/uL (0-0.2); Basophils % (auto) 0.2 % (0.0-2.0); Eosinophils # (auto) 0.2 10 ^3/uL (0-0.8); Eosinophils % (auto) 3.3 % (0.0-7.0); Hematocrit 34.4 % (36.0-46.0); Hemoglobin 11.4 g/dL (12.2-16.2); Lymphocytes # (auto) 1.9 10 ^3/uL (0.4-5.4); Lymphocytes % (auto) 24.7 % (10.0-50.0); Mean Corpuscular Hemoglobin 29.5 pg (28.0-32.0); Mean Corpuscular Hgb Conc. 33.3 g/dL (32.0-36.0); Mean Corpuscular Volume 88.5 fL (80.0-100.0); Monocytes # (auto) 0.3 10 ^3/uL (0-1.3); Monocytes % (auto) 3.5 % (0.0-12.0); Neutrophils # (auto) 5.2 10 ^3/uL (1.6-8.6); Neutrophils % (auto) 68.3 % (37.0-80.0); Nucleated Red Blood Cells % 0.1 %; Platelet Count (auto) 136 10^3/uL (140-450); Red Blood Cells 3.89 10^6/uL (4.0-5.20); Red Cell Distribution Width 15.7 % (11.8-14.3); White Blood Cell 7.6 10^3/uL (4.4-10.8)
[2024-07-12 06:21] LABS: INR 0.97 (0.9-1.15); Partial Thromboplastin Time 85.6 SEC (24.5-34.5); Prothrombin Time 10.3 sec (9.3-11.8)
[2024-07-12] MEDS: HEPARIN DRIP/D5W 100UNITS/ML 250 ML IV SCH ×2 (06:44→16:48)
--- NOTE | 2024-07-12 08:50 | DVHPN2 ---
Progress Note - Dictate Date Seen: Jul 11, 2024 Medical Necessity Reason Pt with a Central, PICC or Fol: Yes The following are medically ne: Cowart Catheter Reason for cowart catheter: Strict I&O vital signs Vital Sign Date Time Temp Pulse Resp B/P (MAP) Pulse Ox O2 Delivery O2 Flow Rate FiO2 07/12/24 05:27 68 16 118/72 07/12/24 05:00 97.8 95 97.8 07/11/24 20:00 Room Air* 0 21 Total Intake and Output 07/11/24 07/11/24 07/12/24 15:00 23:00 07:00 Intake Total 1864 ml 2471 ml Output Total 1450 ml 2100 ml Balance 414 ml 371 ml medications Current Medications Medications Dose Ordered Sig/Damon Route Start Time Stop Time Status Last Admin Dose Admin Ondansetron HCl 4 mg Q4HP PRN IV 07/01/24 21:15 07/05/24 08:43 4 MG Atorvastatin Calcium 20 mg DAILY PO 07/02/24 10:00 07/11/24 08:49 20 MG Baclofen 10 mg Q8HP PRN PO 07/01/24 21:15 Hold 07/06/24 00:05 10 MG Lidocaine 1 patch DAILY TOP 07/02/24 10:00 07/11/24 08:49 1 PATCH Gabapentin 300 mg Q8H PO 07/01/24 21:15 07/12/24 04:58 300 MG Paroxetine HCl 20 mg DAILY PO 07/02/24 10:00 07/11/24 08:49 20 MG Albuterol 2.5 mg Q6HP PRN NEB 07/02/24 05:30 Mesalamine 800 mg TID PO 07/02/24 10:15 07/12/24 04:58 800 MG Diagnostic Test (Pha) 1 strip ACHS 07/03/24 17:00 07/12/24 05:36 1 STRIP Insulin Human Regular ACHS SC 07/03/24 17:00 07/11/24 21:31 2 UNITS Dextrose 50 ml UD PRN IV 07/03/24 12:45 Pantoprazole Sodium 40 mg DAILY IV 07/05/24 10:00 07/11/24 08:49 40 MG Atropine Sulfate 0.5 mg Q4HPRN PRN IV 07/04/24 19:45 Enoxaparin Sodium 80 mg Q12HR SC 07/04/24 23:30 Hold 07/08/24 21:21 80 MG Aspirin 81 mg DAILY PO 07/05/24 10:00 07/11/24 08:49 81 MG Vancomycin HCl 125 mg QID PO 07/05/24 18:00 07/12/24 04:58 125 MG Saccharomyces Boulardii 250 mg DAILY PO 07/06/24 10:00 07/11/24 08:49 250 MG Cholestyramine Resin 4 gm DAILY@11 PO 07/06/24 11:00 07/11/24 11:34 4 GM Acetaminophen/ Hydrocodone Bitart 1 tab Q6HP PRN PO 07/06/24 10:00 07/10/24 04:23 1 TAB Sodium Chloride 1,000 ml @ 120 mls/hr Q8H20M IV 07/07/24 09:00 07/12/24 05:36 120 MLS/HR Dicyclomine HCl 10 mg QID PRN PO 07/08/24 21:30 Morphine Sulfate 2 mg Q4HP PRN IV 07/10/24 17:00 07/12/24 04:57 2 MG Heparin Sodium/ Dextrose 250 ml @ 6 mls/hr Q24H IV 07/12/24 06:45 objective General Appearance: alert, no distress HEENT: EOMI, PERRLA, normal external inspect of ears, no icterus, no nasal drainage Neck: no carotid bruit, no jugular venous distention (JVD), no lymphadenopathy Chest: normal thorax Respiratory: clear to auscultation, normal air movement Cardiovascular: regular rate and rhythm, no diastolic murmur, no jugular venous distention (JVD), no rub, no systolic murmur Abdominal: soft, no hepatomegaly, no mass, no splenomegaly, no tenderness Genitourinary: grossly normal external Musculoskeletal: no joint tenderness, no swelling Extremities: normal pulses, no calf tenderness, no clubbing, no cyanosis, no edema Skin: no bruising, no jaundice, no rash Neurological: alert, No focal deficit laboratory and microbiology Laboratory Tests 07/12/24 04:35 07/08/24 05:06 Test 07/08/24 05:06 Range/Units Serum Glucose 86 74-106 mg/dL Problem List 1. Recurrent UTI Monitor, send UA, IV abx 2. C. difficile colitis Oral vancomyocin 3. Mixed hyperlipidemia Monitor, medications 4. DM II with hyperglycemia Monitor, insulin ss 5. S/p colectomy Monitor 6. Hx CVA with residual weakness Monitor, restart anticoagulation 7. CAD Monitor 8. Acute systolic heart failure Monitor, Cardiology consult and diuretics as needed. 9.Multivessel disease Monitor, Cardiology consult, Higher level of care transfer for possible CABG. 10. Acute hypoxic respiratory failure Monitor, Pulmonary consult, and supplemental O2 as needed Assessment/Plan Subjective Patient is awake and alert. Objective Patient was admitted on July 01, 2024, for complaint of abdominal pain most likely from C. difficile colitis and recurrent UTI. Patient was seen by infectious disease. Patient also had NSTEMI and was seen by Dr. Sabillon. Status post angiogram revealed small vessel disease. Patient will be transferred to higher level [facility] care, [facility], for consideration and possible open heart surgery for small vessel disease. Patients daughter Dina was updated regarding the plan of care. Patient will transfer back once procedures are complete and once she is stable for transfer. Plan Continue current treatment. Monitor daily labs. Plan for transfer for higher level of care for evaluation for CABG. Dietary Evaluation Review Comments: 1. Would change diet order to CHO 60 gm/meal, Low Fiber/Residue diet 2. Document PO intakes after each meal 3. If PO is <50% of meals consistently, consider oral nutrition supplement Expected Outcomes/Goals: Achieve adequate oral intake. Plan discussed with: Patient, Daughter Critical Care Time(min): 45 TED HUSSEIN BIT GATHERER Jul 12, 2024 08:49
--- NOTE | 2024-07-12 09:13 | DVHPN2 ---
Progress Note - Dictate Medical Necessity Reason Pt with a Central, PICC or Fol: Yes The following are medically ne: Cowart Catheter Reason for cowart catheter: Strict I&O vital signs Vital Sign Date Time Temp Pulse Resp B/P (MAP) Pulse Ox O2 Delivery O2 Flow Rate FiO2 07/12/24 09:00 97.5 64 15 113/64 (80) 98 97.5 07/11/24 20:00 Room Air* 0 21 Total Intake and Output 07/11/24 07/11/24 07/12/24 15:00 23:00 07:00 Intake Total 1864 ml 2471 ml Output Total 1450 ml 2100 ml Balance 414 ml 371 ml medications Current Medications Medications Dose Ordered Sig/Damon Route Start Time Stop Time Status Last Admin Dose Admin Ondansetron HCl 4 mg Q4HP PRN IV 07/01/24 21:15 07/05/24 08:43 4 MG Atorvastatin Calcium 20 mg DAILY PO 07/02/24 10:00 07/11/24 08:49 20 MG Baclofen 10 mg Q8HP PRN PO 07/01/24 21:15 Hold 07/06/24 00:05 10 MG Lidocaine 1 patch DAILY TOP 07/02/24 10:00 07/11/24 08:49 1 PATCH Gabapentin 300 mg Q8H PO 07/01/24 21:15 07/12/24 04:58 300 MG Paroxetine HCl 20 mg DAILY PO 07/02/24 10:00 07/11/24 08:49 20 MG Albuterol 2.5 mg Q6HP PRN NEB 07/02/24 05:30 Mesalamine 800 mg TID PO 07/02/24 10:15 07/12/24 04:58 800 MG Diagnostic Test (Pha) 1 strip ACHS 07/03/24 17:00 07/12/24 05:36 1 STRIP Insulin Human Regular ACHS SC 07/03/24 17:00 07/11/24 21:31 2 UNITS Dextrose 50 ml UD PRN IV 07/03/24 12:45 Pantoprazole Sodium 40 mg DAILY IV 07/05/24 10:00 07/11/24 08:49 40 MG Atropine Sulfate 0.5 mg Q4HPRN PRN IV 07/04/24 19:45 Enoxaparin Sodium 80 mg Q12HR SC 07/04/24 23:30 Hold 07/08/24 21:21 80 MG Aspirin 81 mg DAILY PO 07/05/24 10:00 07/11/24 08:49 81 MG Vancomycin HCl 125 mg QID PO 07/05/24 18:00 07/12/24 04:58 125 MG Saccharomyces Boulardii 250 mg DAILY PO 07/06/24 10:00 07/11/24 08:49 250 MG Cholestyramine Resin 4 gm DAILY@11 PO 07/06/24 11:00 07/11/24 11:34 4 GM Acetaminophen/ Hydrocodone Bitart 1 tab Q6HP PRN PO 07/06/24 10:00 07/10/24 04:23 1 TAB Sodium Chloride 1,000 ml @ 120 mls/hr Q8H20M IV 07/07/24 09:00 07/12/24 05:36 120 MLS/HR Dicyclomine HCl 10 mg QID PRN PO 07/08/24 21:30 Morphine Sulfate 2 mg Q4HP PRN IV 07/10/24 17:00 07/12/24 04:57 2 MG Heparin Sodium/ Dextrose 250 ml @ 6 mls/hr Q24H IV 07/12/24 06:45 objective General Appearance: alert, no distress HEENT: EOMI, PERRLA, normal external inspect of ears, no icterus, no nasal drainage Neck: no carotid bruit, no jugular venous distention (JVD), no lymphadenopathy Chest: normal thorax Respiratory: clear to auscultation, normal air movement Cardiovascular: regular rate and rhythm, no diastolic murmur, no jugular venous distention (JVD), no rub, no systolic murmur Abdominal: soft, no hepatomegaly, no mass, no splenomegaly, no tenderness Genitourinary: grossly normal external Musculoskeletal: no joint tenderness, no swelling Extremities: normal pulses, no calf tenderness, no clubbing, no cyanosis, no edema Skin: no bruising, no jaundice, no rash Neurological: alert, No focal deficit laboratory and microbiology Laboratory Tests 07/12/24 04:35 07/08/24 05:06 Test 07/08/24 05:06 Range/Units Serum Glucose 86 74-106 mg/dL Problem List 1. Recurrent UTI Monitor, send UA, IV abx 2. C. difficile colitis Oral vancomyocin 3. Mixed hyperlipidemia Monitor, medications 4. DM II with hyperglycemia Monitor, insulin ss 5. S/p colectomy Monitor 6. Hx CVA with residual weakness Monitor, restart anticoagulation 7. CAD Monitor 8. Acute systolic heart failure Monitor, Cardiology consult and diuretics as needed. 9.Multivessel disease Monitor, Cardiology consult, Higher level of care transfer for possible CABG. 10. Acute hypoxic respiratory failure Monitor, Pulmonary consult, and supplemental O2 as needed Assessment/Plan Subjective Patient is awake and alert. Objective Patient was admitted on July 01, 2024, for complaint of abdominal pain most likely from C. difficile colitis and recurrent UTI. Patient was seen by infectious disease. Patient also had NSTEMI and was seen by Dr. Sabillon. Status post angiogram revealed small vessel disease. Patient will be transferred to higher level of care, [facility], for consideration and possible open heart surgery for small vessel disease. Patients daughter Dina was updated regarding the plan of care. Patient will transfer back once procedures are complete and once she is stable for transfer. Plan Continue current treatment. Monitor daily labs. Plan for transfer for higher level of care for evaluation for CABG. Dietary Evaluation Review Comments: 1. Would change diet order to CHO 60 gm/meal, Low Fiber/Residue diet 2. Document PO intakes after each meal 3. If PO is <50% of meals consistently, consider oral nutrition supplement Expected Outcomes/Goals: Achieve adequate oral intake. TED HUSSEIN NP Jul 12, 2024 09:12
--- NOTE | 2024-07-12 11:04 | ECG ---
[facility] Test Date: 2024-07-10 Test Time: 18:12:57 Pat Name: KAVYA TEJEDA Department: Respiratoy Room: 0231T A Gender: F Sports Analyst: DEIRDRE : 1965 Requested By: TED HUSSEIN Order Number: [id number] Reading MD: Humberto Alvarez Measurements Intervals [place] Rate: 69 P: 27 OH: 131 QRS: -47 QRSD: 104 T: -47 QT: 458 QTc: 491 Interpretive Statements Sinus rhythm Abnormal R-wave progression, late transition Inferior infarct, old Electronically Signed On 07-12-2024 17:18:28 PDT by Humberto Alvarez Please click the below link to view image of tracing.
--- NOTE | 2024-07-12 14:47 | DVHPN2 ---
Progress Note - Dictate Date Seen: Jul 12, 2024 Medical Necessity Reason Pt with a Central, PICC or Fol: Yes The following are medically ne: Cowart Catheter Reason for cowart catheter: Strict I&O vital signs Vital Sign Date Time Temp Pulse Resp B/P (MAP) Pulse Ox O2 Delivery O2 Flow Rate FiO2 07/12/24 14:38 70 15 106/61 07/12/24 13:00 97.9 99 97.9 07/12/24 10:04 Nasal Cannula 2.0 07/12/24 10:04 28 Total Intake and Output 07/11/24 07/11/24 07/12/24 15:00 23:00 07:00 Intake Total 1864 ml 2471 ml Output Total 1450 ml 2100 ml Balance 414 ml 371 ml medications Current Medications Medications Dose Ordered Sig/Damon Route Start Time Stop Time Status Last Admin Dose Admin Ondansetron HCl 4 mg Q4HP PRN IV 07/01/24 21:15 07/05/24 08:43 4 MG Atorvastatin Calcium 20 mg DAILY PO 07/02/24 10:00 07/12/24 09:55 20 MG Baclofen 10 mg Q8HP PRN PO 07/01/24 21:15 Hold 07/06/24 00:05 10 MG Lidocaine 1 patch DAILY TOP 07/02/24 10:00 07/12/24 09:54 1 PATCH Gabapentin 300 mg Q8H PO 07/01/24 21:15 07/12/24 13:25 300 MG Paroxetine HCl 20 mg DAILY PO 07/02/24 10:00 07/12/24 09:55 20 MG Albuterol 2.5 mg Q6HP PRN NEB 07/02/24 05:30 Mesalamine 800 mg TID PO 07/02/24 10:15 07/12/24 13:25 800 MG Diagnostic Test (Pha) 1 strip ACHS 07/03/24 17:00 07/12/24 11:32 1 STRIP Insulin Human Regular ACHS SC 07/03/24 17:00 07/12/24 11:32 4 UNITS Dextrose 50 ml UD PRN IV 07/03/24 12:45 Pantoprazole Sodium 40 mg DAILY IV 07/05/24 10:00 07/12/24 09:54 40 MG Atropine Sulfate 0.5 mg Q4HPRN PRN IV 07/04/24 19:45 Enoxaparin Sodium 80 mg Q12HR SC 07/04/24 23:30 Hold 07/08/24 21:21 80 MG Aspirin 81 mg DAILY PO 07/05/24 10:00 07/12/24 09:55 81 MG Vancomycin HCl 125 mg QID PO 07/05/24 18:00 07/12/24 11:29 125 MG Saccharomyces Boulardii 250 mg DAILY PO 07/06/24 10:00 07/12/24 09:55 250 MG Cholestyramine Resin 4 gm DAILY@11 PO 07/06/24 11:00 07/12/24 09:54 4 GM Acetaminophen/ Hydrocodone Bitart 1 tab Q6HP PRN PO 07/06/24 10:00 07/10/24 04:23 1 TAB Sodium Chloride 1,000 ml @ 120 mls/hr Q8H20M IV 07/07/24 09:00 07/12/24 14:38 120 MLS/HR Dicyclomine HCl 10 mg QID PRN PO 07/08/24 21:30 Morphine Sulfate 2 mg Q4HP PRN IV 07/10/24 17:00 07/12/24 14:38 2 MG Heparin Sodium/ Dextrose 250 ml @ 6 mls/hr Q24H IV 07/12/24 06:45 laboratory and microbiology Laboratory Tests 07/12/24 04:35 07/08/24 05:06 Test 07/08/24 05:06 Range/Units Serum Glucose 86 74-106 mg/dL Assessment/Plan Patient is a 59-year-old female who originally presented to the hospital on July 01, 2024 for lower abdominal pain. She also had nausea and diarrhea that time of presentation. It is of note that the patient does have history of inflammatory bowel disease (ulcerative colitis/Crohn's disease) and presentation was assessed somehow related to the inflammatory bowel disease. Since arrival, the patient was intubated at that point and later extubated. She actually had some EGD also. Cardiology was involved (on July 05, 2024) for an episode of sinus bradycardia for which patient was temporarily on Isuprel drip. She mentions that she has been experiencing some chest tightness for the past 2 days also. She denies previous chest tightness. She is known to our practice from before. She does have history of HFpEF. She is being managed in BEE/ICU. She is found to have increased troponin and has been started on aspirin/Lovenox. She does have history of CVA and carotid disease. She has had carotid endarterectomy (right side) before. There is no previous history of coronary artery disease. Nuclear stress test of December 2021 had been nonrevealing. She is kept on aspirin/Plavix as outpatient (old CVA). Not in acute distress. No JVD. Mucosa is pink and dry. No carotid bruit. Lungs are clear to auscultation. Not using accessory muscles of breathing. Cardiac: Regular, no thrills/gallop. Abdomen is soft. Lower abdominal tenderness can be elicited. There is no rebound. Bowel sound is positive There was no gross mass/hepatomegaly. Extremities do not reveal edema. Dorsalis pedis is 2+ bilateral. Left-sided hemiparesis can somehow be observed. 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 She has had kidney stones/hydronephrosis/hydroureter before. Uses a walker for ambulation (secondary to old CVA). Echocardiogram of December 16, 2022 (performed in [facility]) revealed ejection fraction of 60%, mild TR and right ventricular systolic pressure of 27 mm Hg. Echocardiogram of October 18, 2023 reported ejection fraction 55-60%, mild MR/TR and right ventricular systolic pressure of 25 mm Echocardiogram of May 05, 2024 revealed ejection fraction of 50-55%, normal diastolic, trace MR/TR and right ventricular systolic pressure of 28 mm Hg Nuclear stress test of January 03, 2022 (performed as outpatient) revealed ejection fraction of 80% and no evidence for ischemia/scar. TSH: 1.91 BNP: 638.05 - 492.56 Troponin (high sensitive): 1283 - 1360 - 1105 - 1049 1247 Urine culture was positive for Gram-positive annika Urine toxicology was positive for opiates Stool was positive for CDT toxin Chest x-ray reported: IMPRESSION: 1. Endotracheal tube 2.7 cm above the dante. 2. Enteric tube in the stomach 3. Bibasilar areas of atelectasis or infiltrate. Repeat chest x-ray reported: IMPRESSION: Pulmonary venous congestion. CT of the head revealed: IMPRESSION: 1. No acute intracranial abnormality. CT of the abdomen and pelvis revealed: IMPRESSION: 1. There is no acute process in the abdomen and pelvis. 2. Scattered colonic diverticula without evidence of acute diverticulitis. 3. Stable fibroid uterus. EKG reveals sinus rhythm, nonspecific ST-T changes Tele reveals sinus bradycardia and later sinus rhythm Echocardiogram reported: Left ventricle: Left ventricle wall is normal-sized. LVEF is around 40%. Mild diffuse hypokinesis of left ventricle was seen. Right ventricle was normal-sized with normal systolic function. Both atria were normal-sized. Aortic valve was trileaflet. There was no aortic insufficiency/stenosis. There was trace mitral/tricuspid regurgitation. Pulmonary valve was not well visualized. IVC was dilated. Right ventricular systolic pressure was assessed at 30 mm Hg. There was no pericardial effusion. Cardiac cath revealed: Diagnosis: Triple-vessel coronary artery disease, LVEF of 45% with LVEDP of 10 mm Hg; Cardiac suggestion for management: Transfer to [facility] level of care for Cardiothoracic surgery evaluation/bypass surgery; Aspirin for now; Heparin drip for now Patient is a 59-year-old female who originally presented with abdominal pain/nausea/diarrhea. Assessment of the presentation has been acute inflammatory bowel disease. Patient was intubated and later extubated for respiratory failure. Patient did have EGD which found gastritis. Patient did have an episode of sinus bradycardia which improved on Isuprel at 1st and later resolved (could it have been secondary to significant abdominal pain/vagal induced?). Patient is found to have abnormal troponin (relatively stable and peaked at 1360) with some chest discomfort. Presentation could be considered non-STEMI. Recognizing comorbidities and the significant abdominal pain during this presentation, stress-induced cardiomyopathy can not be ruled out. Echocardiogram has revealed decrease in systolic function (diffuse hypokinesis). Patient with repeated significant diarrhea (CDT colitis) and LHC was postponed at first. Found to have multivessel CAD and suggestion is to transfer to [facility] for bypass surgery. Abdominal pain Acute inflammatory bowel disease, exacerbation C-Diff Colitis UTI, complicated Acute respiratory failure, status post intubation, extubation Systolic heart failure, acute, new finding Abnormal troponin Non-STEMI Sinus bradycardia, resolved Intractable abdominal pain History of old CVA with left hemiparesis History of Crohn disease/ulcerative colitis Morbid obesity Constipation Hyperlipidemia Status post carotid endarterectomy Diverticular disease, history of Cardiac suggestion for management: Manage in tele Follow-up electrolytes and kidney function tests and correct abnormalities. Keep potassium above 4 and magnesium above 2 Heparin drip Aspirin Transfer to high level of care for Cardiothoracic surgery evaluation/bypass surgery; Aspirin for now; Heparin drip for now (as per communications, [facility] has accepted the patient) Evaluation and management of abdominal pain/inflammatory bowel disease as per GI/primary team Evaluation and management of UTI as per primary team Evaluation and management of C-Diff Colitis as per primary team Pulmonary follow-up for recent history of acute respiratory failure Pain management as per primary team Further evaluation and management depends on the above and clinical course A total of 55 minutes was spent reviewing the patient record, examining the patient, making a diagnostic and therapeutic plan, discussing this plan with medical personnel, following up on diagnostic studies and following the patient for clinical stability excluding any and all procedures. At least 50% of this time was spent in direct, [id number] contact. Thank you for allowing me to participate in this patient's care. Further recommendations will depend on patient's clinical course. Please do not hesitate to contact me if you have any questions or concerns. This medical document was created using electronic medical record system with [employer] computerized dictation system. Although this document has been carefully reviewed, there may still be some phonetic and typographical errors. These areas are purely typographical due to the imperfection of the software programs, and do not reflect any compromise in the patient's medical care Dietary Evaluation Review Comments: 1. Document PO intakes after each meal 2. If PO is <50% of meals consistently, consider oral nutrition supplement Expected Outcomes/Goals: Achieve adequate oral intake. Plan discussed with: Patient (Planned transfer to [facility]) MONICA GARCIA DRAFTER CHIEF DESIGN Jul 12, 2024 14:47
[2024-07-12 15:28] LABS: Prothrombin Time 10.6 sec (9.3-11.8)
== END 2024-07-12 20:13 | disposition short-term general hospital (02) | DRG 371 ==
LOC: ER 15:48 → OVERFLOW 21:01 → EAST 07-02 21:00 → ICU CENTRL 07-03 15:16 → TELE-EAST 07-07 21:45
PROVIDERS: ADMIT Nurse Practitioner; ATTEND Nurse Practitioner
PROC: 5A1935Z Respiratory Ventilation, Less than 24 Consecutive Hours (ICD-10-PCS; 2024-07-03)
PROC: 0DJ08ZZ Inspection of Upper Intestinal Tract, Via Natural or Artificial Opening Endoscopic (ICD-10-PCS; 2024-07-03)
PROC: 0B978ZZ Drainage of Left Main Bronchus, Via Natural or Artificial Opening Endoscopic (ICD-10-PCS; 2024-07-03)
PROC: 0B938ZZ Drainage of Right Main Bronchus, Via Natural or Artificial Opening Endoscopic (ICD-10-PCS; 2024-07-03)
PROC: 0BH17EZ Insertion of Endotracheal Airway into Trachea, Via Natural or Artificial Opening (ICD-10-PCS; principal; 2024-07-03 15:45)
PROC: 05HD33Z Insertion of Infusion Device into Right Cephalic Vein, Percutaneous Approach (ICD-10-PCS; 2024-07-05)
PROC: B54MZZA Ultrasonography of Right Upper Extremity Veins, Guidance (ICD-10-PCS; 2024-07-05)
PROC: B211YZZ Fluoroscopy of Multiple Coronary Arteries using Other Contrast (ICD-10-PCS; 2024-07-09)
PROC: B215YZZ Fluoroscopy of Left Heart using Other Contrast (ICD-10-PCS; 2024-07-09)
PROC: 4A023N7 Measurement of Cardiac Sampling and Pressure, Left Heart, Percutaneous Approach (ICD-10-PCS; 2024-07-09)
DX: A04.72 Enterocolitis due to Clostridium difficile, not specified as recurrent (principal); I21.4 Non-ST elevation (NSTEMI) myocardial infarction; I50.21 Acute systolic (congestive) heart failure; J96.01 Acute respiratory failure with hypoxia; N17.0 Acute kidney failure with tubular necrosis; J45.901 Unspecified asthma with (acute) exacerbation; I69.354 Hemiplegia and hemiparesis following cerebral infarction affecting left non-dominant side; N13.6 Pyonephrosis; K57.30 Diverticulosis of large intestine without perforation or abscess without bleeding; D25.9 Leiomyoma of uterus, unspecified; Z68.31 Body mass index [BMI] 31.0-31.9, adult; R15.9 Full incontinence of feces; M54.9 Dorsalgia, unspecified; I25.10 Atherosclerotic heart disease of native coronary artery without angina pectoris; K59.00 Constipation, unspecified; I11.0 Hypertensive heart disease with heart failure; K29.70 Gastritis, unspecified, without bleeding; K76.0 Fatty (change of) liver, not elsewhere classified; E66.01 Morbid (severe) obesity due to excess calories; E78.2 Mixed hyperlipidemia; G89.29 Other chronic pain; E11.65 Type 2 diabetes mellitus with hyperglycemia; R00.1 Bradycardia, unspecified; Z88.8 Allergy status to other drugs, medicaments and biological substances; Z91.040 Latex allergy status; Z79.899 Other long term (current) drug therapy; Z79.2 Long term (current) use of antibiotics; Z79.82 Long term (current) use of aspirin; Z90.49 Acquired absence of other specified parts of digestive tract; Z80.8 Family history of malignant neoplasm of other organs or systems; Z56.0 Unemployment, unspecified; Z83.3 Family history of diabetes mellitus; Z82.3 Family history of stroke; Z81.8 Family history of other mental and behavioral disorders; Z80.3 Family history of malignant neoplasm of breast; Z68.33 Body mass index [BMI] 33.0-33.9, adult; Z95.1 Presence of aortocoronary bypass graft; I69.320 Aphasia following cerebral infarction; Z79.84 Long term (current) use of oral hypoglycemic drugs; Z79.02 Long term (current) use of antithrombotics/antiplatelets; Z82.49 Family history of ischemic heart disease and other diseases of the circulatory system; Z82.0 Family history of epilepsy and other diseases of the nervous system; Z80.0 Family history of malignant neoplasm of digestive organs; Z85.038 Personal history of other malignant neoplasm of large intestine; Z87.440 Personal history of urinary (tract) infections; Z87.442 Personal history of urinary calculi; K20.90 Esophagitis, unspecified without bleeding
CPT/HCPCS: 36415; 36600; 70450; 71045; 74176; 80048; 80053; 80061; 80307; 81001; 82270; 82805; 82962; 83036; 83605; 83690; 83735; 83880; 83986; 84443; 84484; 85025; 85048; 85379; 85610; 85652; 85730; 86141; 87040; 87045; 87070; 87086; 87177; 87205; 87427; 87493; 93005; 93306; 93458; 94002; 94003; 94640; 96361; 96374; 96375; 97110; 97116; 97163; 99152; 99153; G0378; J1100; J1815; J2003; J2250; J2405; J2470; J2543; J3490; J7060; Q9967

== ENCOUNTER 2024-07-19 18:36 | Inpatient (IN) | payer MEDICARE, MEDICAID ==
[~2024-07-19] VITALS: Ht 157.5 cm; Wt 86.0 kg
[~2024-07-19 18:36] MED LIST changes: -BACL10TA PO; -CEPH500C PO; -CHOL4POW39 PO; -FLUC150T38 PO; -POTA-36 PO
--- NOTE | 2024-07-19 18:51 | ED.PDOC ---
HPI Comments Vitals on seen: Respiratory rate of 14, blood pressure 112/79, pulse rate of 76, SpO2 of 97% Vitals upon ED arrival: Respiratory rate of 14, blood pressure 119/73 Past Medical History: CAD small vessel disease, UTI's, C. difficile colitis, HLD, DMII, CVA w/residual right-sided deficits, CHF, multivessel disease, acute hypoxic respiratory failure, angina, kidney stones Past Surgical History: CABG, Colectomy HPI: Poor Historian. 59-year-old female presents to emergency department for evaluation of 5 hour history of generalized weakness then she started feeling some nonspecific midsternal chest tightness. Her daughter called 911. Per EMS, she was hypotensive with the scene systolic blood pressure was in the 80s. Patient took aspirin prior to arrival but she was not given any nitroglycerin. Patient was recently admitted and discharged in transferred to [place] where she had an angiogram done in one stent placed. She states compliance with her aspirin and Plavix. Denies any other acute symptoms. Chest discomfort is nonradiating. No alleviating or precipitating factors. This happened at rest while she was washing TV with her daughter. REVIEW OF SYSTEMS: CONSTITUTIONAL: Denies acute: fever, diaphoresis, chills, HEAD: Denies acute: headache, photophobia Eyes: Denies acute: Double vision, vision loss, eye pain, eye discharge. EARS: Denies acute: tinnitus, hearing loss, ear discharge, ear pain, THROAT: Denies acute: sore throat, swelling, difficulty swallowing , pain with swallowing, change in voice. NECK: Denies acute: neck pain, neck swelling, stiff neck. HEART: Denies acute : palpitations, LUNGS: Denies acute: SOB, wheezing, cough, hemoptysis ABDOMEN: Denies acute: abdominal pain, Nausea, Vomiting, diarrhea, melena , hematemesis, hematochezia SKIN: Denies acute: rash, redness, lesions, itchiness. EXTREMITIES: Denies acute: calf pain, numbness, tingling, weakness, denies pain in extremity. Denies acute: Low back pain. Neuro: Denies acute: focal neurological deficit, motor or sensory focal neurological deficit, tremors, seizure like activity, confusion, dizziness, change in mental status, loss of bowel or bladder function, cauda equina like symptoms. : Denies acute: dysuria, hematuria, flank pain, increase in urinary frequency. PSYCH: Denies acute: hallucination, suicidal ideation, homicidal ideation. PHYSICAL EXAM: General: ----[id number]----acute distress, awake and alert. Head: normocephalic, atraumatic. Neck: supple, trachea is midline, no swelling. Throat: Normal phonation. Eyes:, no erythema, no purulent discharge, no proptosis, no icterus. Heart: regular rate, regular rhythm, no significant murmur appreciated. Lungs: no apparent respiratory distress, Able to speak in full sentences. No wheezing, no rhonchi, no crackles. No stridors Clear to auscultation bilaterally. Abdomen: non tender to palpation, non distended, soft, no guarding, no rebound, + bowel sounds. Neuro: Awake, Alert, oriented to name, self, situation, follows commands GCS=15. Speech is normal. Skin: no petechia, no purpura, no cyanosis, non-pale, not jaundice. Lower extremities: --trace bilateral - Pitting edema no deformity, no focal swelling, no calf TTP. Makes eye contact. moves all four extremities. Face: no apparent facial droop. ED COURSE: Chief Complaint: Chest Pain Time Seen by MD: 18:45 Primary Care Provider: unknown Reviewed Notes: Nurses Notes, Medications, Allergies Allergies: Coded Allergies: Latex (Verified Allergy, Mild, 06/02/24) INCLUDING TAPE, BROWN AND CLEAR TAPE Procaine (Verified Allergy, Unknown, 03/12/14) Uncoded Allergies: PENICILLIN (Allergy, Unknown, 07/19/24) Home Meds Active Scripts Lidocaine (LIDODERM 5% TOPICAL PATCH) 1 Patch Ph, 1 PATCH TOP DAILY for 30 Days, #30 PATCH 0 Refills Prov:MIAN ROMO LUBRICATION EQUIPMENT SERVICER 06/02/24 Polyethylene Glycol 3350 (Miralax) 17 Gm Pow, 17 GM PO DAILY for 15 Days, #15 POW Prov:TED HUSSEIN LUBRICATION EQUIPMENT SERVICER 05/03/24 Albuterol Sulfate (Albuterol Sulfate Hfa) 108 Mcg/Act Aer, 108 MCG IN BID PRN for 10 Days, #1 AER 0 Refills Prov:LILI LUNSFORD DO 12/01/22 Reported Medications Docusate Sodium (Docusate Sodium) 100 Mg Cap, 1 CAP PO BID for 30 Days, #60 07/03/24 Simvastatin (Simvastatin) 20 Mg Tab, 1 TAB PO DAILY for 90 Days, #90 07/03/24 Hydrocodone-Acetaminophen (Hydrocodone Bitartrate/AC 10-325 mg) 1 Tab Tab, 1 TAB PO Q6HR PRN for CHRONIC PAIN for 30 Days, #120 07/03/24 Meloxicam (Meloxicam) 15 Mg Tab, 1 TAB PO DAILY for 30 Days, #30 07/03/24 Potassium Chloride (Potassium Chloride ER) 10 Meq Tab, 1 TAB PO BID for 90 Days, #180 07/03/24 Baclofen (Baclofen) 20 Mg Tab, 1 TAB PO BID for 90 Days, #180 07/03/24 Paroxetine Hydrochloride (Paroxetine Hydrochloride) 20 Mg Tab, 1 TAB PO DAILY for 90 Days, #90 05/01/24 Tirzepatide (Mounjaro) 7.5 Mg/0.5 Ml Inj, 7.5 MG SC QWEEKLY for 28 Days, #2 10/18/23 Sitagliptin Phosphate (Januvia) 100 Mg Tab, 1 TAB PO DAILY 10/18/23 Clopidogrel Bisulfate (CLOPIDOGREL) 75 Mg Tab, 1 TAB PO DAILY 10/18/23 Furosemide (Furosemide) 40 Mg Tab, 1 TAB PO BID 10/18/23 Atorvastatin Calcium (ATORVASTATIN CALCIUM) 20 Mg Tab, 1 TAB PO DAILY 10/17/23 Cholecalciferol (Vitamin D-3 Super Strengt) 2,000 Unit Tab, 1 TAB PO DAILY 10/17/23 Gabapentin (Gabapentin) 300 Mg Cap, 1 CAP PO Q8HR for NEUROPATHIC PAIN for 30 Days, #90 10/17/23 Aspirin (Aspirin Low Dose) 81 Mg Tab, 1 TAB PO DAILY 10/17/23 Balsalazide Disodium (Balsalazide Disodium) 750 Mg Cap, 3 CAP PO BID for 30 Days, #180 10/17/23 Information Source: Patient Mode of Arrival: EMS Past Medical History PAST MEDICAL HISTORY: Angina, CAD, CHF, CVA, DM, High Lipids, Kidney Stones, Liver, SC Surgical History: Cholecystectomy, Hernia Repair NURSING CONSULTANT History: No Pertinent NURSING CONSULTANT History Family History Family History: Family hx of Cancer, Family hx of heart naveen Social History Smoker: Non-Smoker Alcohol: Denies ETOH Use Drugs: Denies Drug Use Lives In: Home EKG EKG : Pulse Rate (adult): 78 [place]: Normal Cardiac Rhythm: NSR Block: None Hypertrophy: None ST: Normal Was a procedure done? Was a procedure done?: No CP Differential Dx Differential Diagnosis: N/A Differential Diagnosis: Other (Ddx include but not limitied to gastritis, musculoskeletal pain, radiculopathy, atypical chest pain, dissection, aneurysm, ACS, unstable angina, hiatal hernia, GERD, anxiety, costochondritis, PE, pneumothroax, neoplasm, cardiac ischemia, drug abuse, anemia.) X-Ray, Labs, Meds, VS Vital Signs Date Time Temp Pulse Resp B/P (MAP) Pulse Ox O2 Delivery O2 Flow Rate FiO2 07/19/24 18:51 98.7 70 18 109/64 (79) 98 98.7 07/19/24 18:51 78 07/19/24 18:40 78 Lab Test 07/19/24 20:00 07/19/24 19:09 Range/Units Troponin I High Sensitivity 19 21 </=34 ng/L White Blood Count 7.4 4.4-10.8 10^3/uL Red Blood Count 4.05 4.0-5.20 10^6/uL Hemoglobin 11.8 L 12.2-16.2 g/dL Hematocrit 36.8 36.0-46.0 % Mean Corpuscular Volume 90.7 80.0-100.0 fL Mean Corpuscular Hemoglobin 29.1 28.0-32.0 pg Mean Corpuscular Hemoglobin Concent 32.1 32.0-36.0 g/dL Red Cell Distribution Width 17.5 H 11.8-14.3 % Platelet Count 213 140-450 10^3/uL Mean Platelet Volume 8.7 6.9-10.8 fL Neutrophils (%) (Auto) 70.4 37.0-80.0 % Lymphocytes (%) (Auto) 21.5 10.0-50.0 % Monocytes (%) (Auto) 3.3 0.0-12.0 % Eosinophils (%) (Auto) 4.0 0.0-7.0 % Basophils (%) (Auto) 0.8 0.0-2.0 % Neutrophils # (Auto) 5.2 1.6-8.6 10 ^3/uL Lymphocytes # (Auto) 1.6 0.4-5.4 10 ^3/uL Monocytes # (Auto) 0.2 0-1.3 10 ^3/uL Eosinophils # (Auto) 0.3 0-0.8 10 ^3/uL Basophils # (Auto) 0.1 0-0.2 10 ^3/uL Nucleated Red Blood Cells 0.0 % Sodium Level 142 136-145 mmol/L Potassium Level 4.0 3.5-5.1 mmol/L Chloride Level 106 98-107 mmol/L Carbon Dioxide Level 27 20-31 mmol/L Anion Gap 9 5-15 Blood Urea Nitrogen 21 9-23 mg/dL Creatinine 1.23 H 0.550-1.02 mg/dL Glomerular Filtration Rate Calc 50 >90 mL/min BUN/Creatinine Ratio 17.1 10.0-20.0 Serum Glucose 418 *H 74-106 mg/dL Lactic Acid Level 2.3 *H 0.4-2.0 mmol/L Calcium Level 9.5 8.7-10.4 mg/dL Total Bilirubin 0.5 0.2-1.0 mg/dL Aspartate Amino Transferase (AST) < 8 L 13-40 U/L Alanine Aminotransferase (ALT) 14 7-40 U/L Alkaline Phosphatase 118 H 46-116 U/L B-Type Natriuretic Peptide 118.36 0-100 pg/mL Total Protein 6.3 5.7-8.2 g/dL Albumin 4.1 3.2-4.8 g/dL Time of 1ST Reevaluation: 18:45 Reevaluation 1ST: Unchanged Time of 2ND Reevaluation: 21:31 Reevaluation 2ND: Improved Patient Education/Counseling: Diagnosis, Treatment Family Education/Counseling: No Family Present Comments Patient presented with the above HPI.---cardiac---workup was initiated. patient was found with the above mentioned diagnosis. the following medications were ordered: please refer to order lists of meds and tests obtained by myself Dr. Jones. Patient ED course and VS have been stabilized. Patient has been reassessed in the ED and remained in a stable condition. Pertinent incidental findings were discussed with the patient and/or family. Patient/family voices understanding and is agreeable with plan. Patient has been observed in the ED adequate length of time to insure improvement/stability. Escalation of care considered: Consideration of escalation to observation or admission Patient was ADMITTED to the medicine team for further evaluation and treatment of their presentation. All the reports of any imaging studies that were ordered by myself were reviewed by myself. Departure 1 Departure Time of Disposition: 19:32 Impression: Primary Impression: Chest pain Additional Impressions: Uncontrolled diabetes mellitus Hyperglycemia due to diabetes mellitus Abnormal EKG Disposition: ADMITTED INPATIENT Admit to: Tele Condition: Guarded Discharged With: Self Critical Care Note Critical Care Time?: Yes (35 min-critical care time only) I personally scribed for FLY JONES DO ([email or web address]) on 07/19/24 at 18:51. E lectronically submitted by Ridge Cary ([email or web address]). I personally scribed for FLY JONES DO ([email or web address]) on 07/19/24 at 19:04. Electronically submitted by Gage Branch ([email or web address]). FLY JONES DO Jul 19, 2024 18:51
[2024-07-19 19:27] LABS: Basophils # (auto) 0.1 10 ^3/uL (0-0.2); Basophils % (auto) 0.8 % (0.0-2.0); Eosinophils # (auto) 0.3 10 ^3/uL (0-0.8); Hematocrit 36.8 % (36.0-46.0); Hemoglobin 11.8 g/dL (12.2-16.2); Lymphocytes # (auto) 1.6 10 ^3/uL (0.4-5.4); Lymphocytes % (auto) 21.5 % (10.0-50.0); Mean Corpuscular Hemoglobin 29.1 pg (28.0-32.0); Mean Corpuscular Hgb Conc. 32.1 g/dL (32.0-36.0); Mean Corpuscular Volume 90.7 fL (80.0-100.0); Monocytes # (auto) 0.2 10 ^3/uL (0-1.3); Monocytes % (auto) 3.3 % (0.0-12.0); Neutrophils # (auto) 5.2 10 ^3/uL (1.6-8.6); Neutrophils % (auto) 70.4 % (37.0-80.0); Platelet Count (auto) 213 10^3/uL (140-450); Red Blood Cells 4.05 10^6/uL (4.0-5.20); Red Cell Distribution Width 17.5 % (11.8-14.3); White Blood Cell 7.4 10^3/uL (4.4-10.8)
[2024-07-19 19:34] LABS: Alanine Aminotransferase 14 U/L (7-40); Albumin 4.1 g/dL (3.2-4.8); Anion Gap 9 (5-15); BUN/Creatinine Ratio 17.1 (10.0-20.0); Blood Urea Nitrogen 21 mg/dL (9-23); Calcium 9.5 mg/dL (8.7-10.4); Carbon Dioxide 27 mmol/L (20-31); Chloride 106 mmol/L (98-107); Sodium 142 mmol/L (136-145); Total Protein 6.3 g/dL (5.7-8.2)
[2024-07-19 19:35] LABS: Bilirubin, Total 0.5 mg/dL (0.2-1.0)
[2024-07-19 19:45] LABS: Alkaline Phosphatase 118 U/L (46-116); Aspartate Aminotransferase < 8 U/L (13-40); Glucose 418 mg/dL (74-106); Lactic Acid w/Reflex 2.3 mmol/L (0.4-2.0)
[2024-07-19] MEDS: InsuLIN REG 1unit/0.01ml Soln (100units/ml) IV ONE (20:00)
--- NOTE | 2024-07-19 20:14 | DVH ---
CHEST RADIOGRAPH Indication: cp Technique: Single frontal view of the chest was obtained COMPARISON: XY CHEST PORTABLE on DOS: 07/04/24 FINDINGS: Lines and Tubes: None Lungs: Clear Pleura: No effusion. No pneumothorax. Cardiomediastinal contours: Unremarkable Bones: Unremarkable IMPRESSION: No abnormality demonstrated.
[2024-07-19] MEDS ORDERED: NITROGLYCERIN 0.4 MG SL TAB SL PRN (20:30)
[2024-07-19] MEDS ORDERED: ACETAMINOPHEN 325 MG TAB PO PRN (20:30)
[2024-07-19] MEDS ORDERED: DEXTROSE (50%) 50ML SYRG IV PRN (20:30)
[2024-07-19] MEDS ORDERED: MORPHINE SULFATE INJ 2 MG/ml SYRG IV PRN (20:30)
--- NOTE | 2024-07-19 20:31 | DVHHP2 ---
History of Present Illness Home Meds Active Scripts Lidocaine (LIDODERM 5% TOPICAL PATCH) 1 Patch Ph, 1 PATCH TOP DAILY for 30 Days, #30 PATCH 0 Refills Prov:JEMIMA ROMOO Sarabjit SET STAFF FITTER 06/02/24 Polyethylene Glycol 3350 (Miralax) 17 Gm Pow, 17 GM PO DAILY for 15 Days, #15 POW Prov:TED HUSSEIN Kim SET STAFF FITTER 05/03/24 Albuterol Sulfate (Albuterol Sulfate Hfa) 108 Mcg/Act Aer, 108 MCG IN BID PRN for 10 Days, #1 AER 0 Refills Prov:LILI LUNSFORD DO 12/01/22 Reported Medications Docusate Sodium (Docusate Sodium) 100 Mg Cap, 1 CAP PO BID for 30 Days, #60 07/03/24 Simvastatin (Simvastatin) 20 Mg Tab, 1 TAB PO DAILY for 90 Days, #90 07/03/24 Hydrocodone-Acetaminophen (Hydrocodone Bitartrate/AC 10-325 mg) 1 Tab Tab, 1 TAB PO Q6HR PRN for CHRONIC PAIN for 30 Days, #120 07/03/24 Meloxicam (Meloxicam) 15 Mg Tab, 1 TAB PO DAILY for 30 Days, #30 07/03/24 Potassium Chloride (Potassium Chloride ER) 10 Meq Tab, 1 TAB PO BID for 90 Days, #180 07/03/24 Baclofen (Baclofen) 20 Mg Tab, 1 TAB PO BID for 90 Days, #180 07/03/24 Paroxetine Hydrochloride (Paroxetine Hydrochloride) 20 Mg Tab, 1 TAB PO DAILY for 90 Days, #90 05/01/24 Tirzepatide (Mounjaro) 7.5 Mg/0.5 Ml Inj, 7.5 MG SC QWEEKLY for 28 Days, #2 10/18/23 Sitagliptin Phosphate (Januvia) 100 Mg Tab, 1 TAB PO DAILY 10/18/23 Clopidogrel Bisulfate (CLOPIDOGREL) 75 Mg Tab, 1 TAB PO DAILY 10/18/23 Furosemide (Furosemide) 40 Mg Tab, 1 TAB PO BID 10/18/23 Atorvastatin Calcium (ATORVASTATIN CALCIUM) 20 Mg Tab, 1 TAB PO DAILY 10/17/23 Cholecalciferol (Vitamin D-3 Super Strengt) 2,000 Unit Tab, 1 TAB PO DAILY 10/17/23 Gabapentin (Gabapentin) 300 Mg Cap, 1 CAP PO Q8HR for NEUROPATHIC PAIN for 30 Days, #90 10/17/23 Aspirin (Aspirin Low Dose) 81 Mg Tab, 1 TAB PO DAILY 10/17/23 Balsalazide Disodium (Balsalazide Disodium) 750 Mg Cap, 3 CAP PO BID for 30 Days, #180 10/17/23 Past Medical History Cardiac: No pertinent Hx Pulmonary: No pertinent Hx Central Nervous System: No pertinent Hx GI: No pertinent Hx Hemotology/Oncology: No pertinent Hx Hepatobiliary: No pertinent Hx Psychiatric: No pertinent Hx Musculoskeletal: No pertinent Hx Rheumotologic: No pertinent Hx Infectious Disease: No peritnent Hx ENT: No pertinent Hx Renal/: No pertinent Hx Endocrine: No pertinent Hx Dermatology: No pertinent Hx Past Surgical History: No pertinent Hx Family History: No pertinent Hx Patient Family History: FH: breast cancer G8 SISTER FH: cancer FH: liver cancer G8 MOTHER, , Cause: Liver cancer Family history: Alzheimer's disease G8 MOTHER, , Cause: Liver cancer, Onset:Unknown Family history: Cardiovascular disease G8 FATHER, , Cause: CHF (congestive heart failure), Onset:Unknown Family history: Diabetes mellitus G8 BROTHER, Onset:Unknown Thyroid disease 19 CHILD Thyroid disease 19 CHILD Smoker: No Hx (Negative) Alocohol: None Drugs: None Domestic Violence: Neg Review of Systems Constitutional: No symptom reported Ears, Nose, & Throat: No symptom reported Eyes: No symptom reported Pulmonary/Respiratory: No symptom reported Cardiovascular: No symptom reported Gastrointestinal: No symptom reported Genitourinary: No symptom reported Musculoskeletal: No symptom reported Skin: No symptom reported Psychiatric: No symptom reported Endocrine: No symptom reported Hemotologic/Lymphatic: No symptom reported H&P Exam Vital Signs Vital Signs Date Time Temp Pulse Resp B/P (MAP) Pulse Ox O2 Delivery O2 Flow Rate FiO2 07/19/24 18:51 98.7 70 18 109/64 (79) 98 98.7 General Appeara: Well developed, Well nourished, Normal Appearance Head Exam: Normal inspection Neck Exam: Normal inspection, Non-tender, Normal alignment Eye Exam: bilateral eye Normal inspection, bilateral eye PERRL, bilateral eye EOMI Ear Exam: bilateral ear Auricle normal, bilateral ear Canal normal, bilateral ear TM normal Nasal Exam: Normal inspection Mouth: Normal Inspection Pulmonary/Respiratory: Normal inspection, Normal breath sounds, Chest non- tender, Lungs clear Cardiovascular/Chest: Normal inspection, Regular rate, Normal Rhythm Abdominal Exam: Normal bowel sounds, Soft, No tenderness, No hepatospenomegaly, No masses Rectal Exam: Normal inspection Back Exam: Normal inspection Pelvic Exam: External exam normal, Bimanual exam normal, Speculum exam normal Male Genital Exam: Normal genitalia, Normal prostate Shoulder Exam: Normal inspection, Non-tender, Normal ROM Elbow/Forearm Exam: Normal inspection, Non-tender, Normal ROM Wrist Exam: Normal inspection, Non-tender, Normal ROM Hand Exam: Normal inspection, Non-tender, Normal ROM Hip exam: Normal inspection, Non-tender, Normal range of motion Legs: bilateral leg non-tender, bilateral leg normal inspection, bilateral leg normal range of motion, bilateral leg no evidence of injury Knees: bilateral knee non-tender, bilateral knee normal inspection, bilateral knee normal range of motion, bilateral knee no evidence of injury Ankle Exam: bilateral ankle Normal inspection, bilateral ankle Non-tender, bilateral ankle Normal range of motion, bilateral ankle No evidence of injury Foot: bilateral foot non-tender, bilateral foot normal inspection, bilateral foot normal range of motion, bilateral foot no evidence of injury Tendon/ Neuro: Normal sensation, Normal motor function, Normal tendon functions PRINTING GREY CLOTH TENDER Exam: Normal hearing, Normal speech, PERRL Motor/Sensory: Normal sensory function, Normal motor function, Negative Babinski's sign Deep Tendon Ref: All intact Neuro/Mental St: Alert, Oriented Appearance: Appropriate appearance, Appropriate insight Eye contact/ Speech: Cooperative, Good eye contact, Normal speech Coordination/Gait: Normal finger->nose, Normal gait, Negative Romberg's sign Skin Exam: Normal inspection, Normal color, Warm/dry Lymphatic: Normal inspection Labs/Xrays Labs Test 07/19/24 20:00 07/19/24 19:09 Range/Units White Blood Count 7.4 4.4-10.8 10^3/uL Red Blood Count 4.05 4.0-5.20 10^6/uL Hemoglobin 11.8 L 12.2-16.2 g/dL Hematocrit 36.8 36.0-46.0 % Mean Corpuscular Volume 90.7 80.0-100.0 fL Mean Corpuscular Hemoglobin 29.1 28.0-32.0 pg Mean Corpuscular Hemoglobin Concent 32.1 32.0-36.0 g/dL Red Cell Distribution Width 17.5 H 11.8-14.3 % Platelet Count 213 140-450 10^3/uL Mean Platelet Volume 8.7 6.9-10.8 fL Neutrophils (%) (Auto) 70.4 37.0-80.0 % Lymphocytes (%) (Auto) 21.5 10.0-50.0 % Monocytes (%) (Auto) 3.3 0.0-12.0 % Eosinophils (%) (Auto) 4.0 0.0-7.0 % Basophils (%) (Auto) 0.8 0.0-2.0 % Neutrophils # (Auto) 5.2 1.6-8.6 10 ^3/uL Lymphocytes # (Auto) 1.6 0.4-5.4 10 ^3/uL Monocytes # (Auto) 0.2 0-1.3 10 ^3/uL Eosinophils # (Auto) 0.3 0-0.8 10 ^3/uL Basophils # (Auto) 0.1 0-0.2 10 ^3/uL Nucleated Red Blood Cells 0.0 % Sodium Level 142 136-145 mmol/L Potassium Level 4.0 3.5-5.1 mmol/L Chloride Level 106 98-107 mmol/L Carbon Dioxide Level 27 20-31 mmol/L Anion Gap 9 5-15 Blood Urea Nitrogen 21 9-23 mg/dL Creatinine 1.23 H 0.550-1.02 mg/dL Glomerular Filtration Rate Calc 50 >90 mL/min BUN/Creatinine Ratio 17.1 10.0-20.0 Serum Glucose 418 *H 74-106 mg/dL Lactic Acid Level 2.3 *H 0.4-2.0 mmol/L Calcium Level 9.5 8.7-10.4 mg/dL Total Bilirubin 0.5 0.2-1.0 mg/dL Aspartate Amino Transferase (AST) < 8 L 13-40 U/L Alanine Aminotransferase (ALT) 14 7-40 U/L Alkaline Phosphatase 118 H 46-116 U/L B-Type Natriuretic Peptide 118.36 0-100 pg/mL Total Protein 6.3 5.7-8.2 g/dL Albumin 4.1 3.2-4.8 g/dL Assessment/Plan Primary Diagnosis Subjective: Chief Complaint Generalized weakness for 5 hours, nonspecific midresnal or chest pain, hypotension with syncystic blood pressure in the 80s History of Present Illness Anastacia Wilde, a patient with a history of coronary artery disease, type 2 diabetes, chronic systolic CHF, and CVA with residual right-sided deficit, presents with a 5-hour history of generalized weakness and nonspecific midresnal or chest pain. The patient called 911 due to these symptoms. Upon arrival, she was found to be hypotensive with systolic blood pressure in the 80s. The patient reports taking aspirin prior to arrival. Her chest discomfort is described as non-radiating. Of note, the patient was recently admitted and discharged from [facility], where she underwent an angiogram and had one stent placed. She states she has been taking aspirin and Plavix as prescribed. The patient's recent medical history is significant for a urinary tract infection (UTI), C. difficile infection, and nephrolithiasis. She also has a history of hyperlipidemia and multivessel disease. Surgical history includes a CABG and colectomy. Medications and Supplements - Aspirin - Taken prior to hospital arrival - Plavix - Insulin Review of Systems General: Positive for generalized weakness. Cardiovascular: Positive for nonspecific midresnal or chest pain, non-radiating chest discomfort. Objective: Vital Signs - Blood Pressure: Hypotensive with systolic blood pressure in the 80s mmHg Laboratory, Imaging, and Diagnostic Test Results - Hemoglobin: 11.8 g/dL - Serum glucose: 418 mg/dL - Lactic acid: 2.3 mmol/L - Troponin: Performed (specific results not provided) - Chest X-ray: No abnormalities seen Assessment & Plan: Anastacia Wilde, a patient with a history of coronary artery disease, type 2 diabetes, CVA with residual right-sided deficit, and chronic systolic CHF, presents with a 5-hour history of generalized weakness and nonspecific midresnal or chest pain. Acute Coronary Syndrome (ACS) Assessment: Patient presents with a 5-hour history of generalized weakness and nonspecific midresnal or chest pain. Given the patient's history of coronary artery disease and recent stent placement, there is a high suspicion for ACS. The patient was hypotensive with systolic blood pressure in the 80s and took aspirin prior to arrival. The chest discomfort is non-radiating. Recent angiogram and stent placement at [facility] adds to the concern. Chest X-ray showed no abnormalities. Initial troponin results are pending. Plan: - Admit patient for further evaluation and management - Serial troponin measurements - Cardiology consultation for evaluation - Continue aspirin and Plavix as per patient's report Diabetes Mellitus Type 2 with Hyperglycemia Assessment: Patient has a known history of type 2 diabetes. Current serum glucose level is significantly elevated at 418 mg/dL, indicating poor glycemic control. Plan: - Renew patient's home diabetes medications - Initiate insulin sliding scale Lactic Acidosis Assessment: Initial lactic acid level is 2.3, which is elevated. No clear source of infection has been identified at this time. Plan: - Repeat lactic acid level - Monitor for signs of infection Cerebrovascular Accident (CVA) with Right-sided Deficit Assessment: Patient has a history of CVA with residual right-sided deficit. Current neurological status not detailed in the transcript. Plan: - Continue monitoring neurological status Coronary Artery Disease status post recent stent Assessment: Patient has a history of coronary artery disease and recently underwent stent placement at [facility]. The details of the stent placement and current cardiac status are not provided in the transcript. Plan: - Resume home medications - Cardiology follow-up (timing not specified in transcript) Plan discussed with: Patient CAL MARTINO MD Jul 19, 2024 20:31
[2024-07-19] MEDS ORDERED: ALBUTEROL SULF HFA 90MCG INH 200DOSE IN PRN (20:45)
[2024-07-19] MEDS ORDERED: HYDROcodone-ACET 10/325MG TAB PO PRN (20:45)
[2024-07-19] MEDS ORDERED: ATORVASTATIN 20 MG TAB PO SCH (22:00)
[2024-07-19] MEDS: DOCUSATE SOD 100 MG CAP PO SCH (22:00)
[2024-07-19] MEDS ORDERED: ALBUTEROL SULF 2.5 MG/0.5ML(0.5%) NEB SOLN NEB PRN (22:30)
[2024-07-19 23:00] VITALS: PULSE 73; RESP 14; O2SAT 95
[2024-07-19] MEDS: GABAPENTIN 300 MG CAP PO SCH (23:14)
[2024-07-19] MEDS: SODIUM CHLORIDE 0.9% 500 ML IV ONE (23:14)
[2024-07-19] MEDS: BACLOFEN 10 MG TAB PO SCH (23:14)
[2024-07-19] MEDS: ASCORBIC ACID 500 MG TAB PO SCH (23:14)
[2024-07-19] MEDS: FUROSEMIDE 40 MG TAB PO SCH (23:15)
[2024-07-19] MEDS: ACCU-CHEK COMFORT CURVE STRIP VI SCH (23:19)
[2024-07-19] MEDS: InsuLIN REG 1unit/0.01ml Soln (100units/ml) SC SCH (23:19)
[2024-07-19] MEDS: MORPHINE SULFATE INJ 2 MG/ml SYRG IV PRN (23:25)
--- NOTE | 2024-07-19 23:26 | ECG ---
[facility] Test Date: 2024-07-19 Test Time: 20:46:37 Pat Name: KAVYA TEJEDA Department: ED Room: [address] [place] [address] Gender: F Cane Splicer: HAL : 1965 Requested By: FLY JONES Order Number: [id number] Reading MD: Humberto Alvarez Measurements Intervals [place] Rate: 72 P: -3 MO: 128 QRS: -46 QRSD: 100 T: -34 QT: 387 QTc: 424 Interpretive Statements Sinus rhythm Abnormal R-wave progression, early transition Inferior infarct, old Electronically Signed On 07-23-2024 20:53:22 PDT by Humberto Alvarez Please click the below link to view image of tracing.
--- NOTE | 2024-07-19 23:26 | ECG ---
[facility] Test Date: 2024-07-19 Test Time: 21:51:01 Pat Name: KAVYA TEJEDA Department: ED Room: [address] [place] [address] Gender: F Residential Subcontractor: SEA : [id number] Requested By: FLY JONES Order Number: [id number] Reading MD: Humberto Alvarez Measurements Intervals [place] Rate: 72 P: 17 MN: 134 QRS: -43 QRSD: 99 T: -32 QT: 385 QTc: 422 Interpretive Statements Sinus rhythm Left axis deviation Abnormal R-wave progression, early transition Nonspecific T abnormalities, diffuse leads Electronically Signed On 07-23-2024 20:54:22 PDT by Humberto Alvarez Please click the below link to view image of tracing.
[2024-07-19 23:37] VITALS: O2SAT 96
[2024-07-19 23:40] VITALS: BP 114/75; PULSE 61; RESP 18; TEMP 98.7; O2SAT 96
--- NOTE | 2024-07-20 00:16 | ECG ---
[facility] Test Date: 2024-07-19 Test Time: 18:40:21 Pat Name: KAVYA TEJEDA Department: ED Room: [address] [place] [address] Gender: F Cloth Trimmer Hand: dr SALDAÑA: 1965 Requested By: FLY JONES Order Number: [id number] Reading MD: Humberto Alvarez Measurements Intervals [place] Rate: 78 P: 35 SD: 142 QRS: -42 QRSD: 103 T: -23 QT: 386 QTc: 440 Interpretive Statements Sinus rhythm Abnormal R-wave progression, early transition Inferior infarct, old Electronically Signed On 07-23-2024 20:53:12 PDT by Humberto Alvarez Please click the below link to view image of tracing.
[2024-07-20 01:24] LABS: Urine Bacteria MOD /hpf (None Seen); Urine Blood Negative /uL (Negative); Urine Clarity Turbid (Clear); Urine Color Yellow (Yellow); Urine Hyaline Cast MOD /lpf (0 - 2); Urine Mucus FEW (None Seen); Urine Protein, UAD Negative (Negative); Urine Specific Gravity 1.018 (1.001-1.035); Urine Squamous Epithelial Cell FEW /hpf (<5); Urine Urobilinogen Normal (Negative); Urine WBC 191 /HPF (0-5); Urine WBC Clumps PRESENT /hpf (None Seen)
[2024-07-20 06:03] LABS: Alanine Aminotransferase 15 U/L (7-40); Albumin 4.2 g/dL (3.2-4.8); Alkaline Phosphatase 105 U/L (46-116); Anion Gap 10 (5-15); Blood Urea Nitrogen 20 mg/dL (9-23); Calcium 9.7 mg/dL (8.7-10.4); Carbon Dioxide 29 mmol/L (20-31); Chloride 106 mmol/L (98-107); Total Protein 6.4 g/dL (5.7-8.2)
[2024-07-20 06:04] LABS: Bilirubin, Total 0.5 mg/dL (0.2-1.0)
[2024-07-20 06:09] LABS: Basophils # (auto) 0 10 ^3/uL (0-0.2); Basophils % (auto) 0.5 % (0.0-2.0); Eosinophils # (auto) 0.4 10 ^3/uL (0-0.8); Eosinophils % (auto) 5.2 % (0.0-7.0); Hematocrit 35.6 % (36.0-46.0); Hemoglobin 11.6 g/dL (12.2-16.2); Lymphocytes # (auto) 2.1 10 ^3/uL (0.4-5.4); Lymphocytes % (auto) 28.9 % (10.0-50.0); Mean Corpuscular Hemoglobin 29.1 pg (28.0-32.0); Mean Corpuscular Hgb Conc. 32.5 g/dL (32.0-36.0); Mean Corpuscular Volume 89.5 fL (80.0-100.0); Monocytes # (auto) 0.2 10 ^3/uL (0-1.3); Monocytes % (auto) 3.1 % (0.0-12.0); Neutrophils # (auto) 4.6 10 ^3/uL (1.6-8.6); Neutrophils % (auto) 62.3 % (37.0-80.0); Nucleated Red Blood Cells % 0.1 %; Platelet Count (auto) 219 10^3/uL (140-450); Red Blood Cells 3.98 10^6/uL (4.0-5.20); Red Cell Distribution Width 16.6 % (11.8-14.3); White Blood Cell 7.4 10^3/uL (4.4-10.8)
[2024-07-20 06:35] VITALS: O2SAT 96
[2024-07-20 07:03] LABS: Aspartate Aminotransferase 8 U/L (13-40); Glucose 160 mg/dL (74-106); Potassium 3.3 mmol/L (3.5-5.1); Sodium 145 mmol/L (136-145)
[2024-07-20] MEDS: cefTRIAXone 1GM/50ML D5W 50 ML IV ONE (07:45)
[2024-07-20 08:50] VITALS: PULSE 55; RESP 11; O2SAT 96
[2024-07-20] MEDS: POLYETHYLENE GLYCOL 17 GM PWDR PO SCH (10:00)
[2024-07-20] MEDS: MULTIPLE VITAMIN TAB PO SCH (10:00)
[2024-07-20] MEDS: LIDOCAINE 5% TOPICAL PATCH TOP SCH (10:41)
[2024-07-20] MEDS: ASPirin-EC 81 mg tab PO SCH (10:42)
[2024-07-20] MEDS: ZINC SULFATE 220mg CAP or TAB PO SCH (10:43)
[2024-07-20] MEDS: CLOPIDOGREL BISULFATE 75 MG TAB PO SCH (10:43)
[2024-07-20] MEDS: ATORVASTATIN 20 MG TAB PO SCH (10:43)
[2024-07-20] MEDS: ENOXAPARIN SOD 40 MG/0.4 ML SYRINGE SC SCH (10:44)
[2024-07-20] MEDS: PARoxetine 20 MG TAB PO SCH (10:44)
[2024-07-20] MEDS: POTASSIUM EFFERVESENT TAB 25 MEQ PO ONE (10:58)
--- NOTE | 2024-07-20 17:17 | DVHPN2 ---
Progress Note Date Seen: Jul 20, 2024 Medical Necessity Reason Pt with a Central, PICC or Fol: No Subjective Review of Systems: CVS:Normal, RESPIRATORY:Normal, GI:Normal, NEURO:Normal Objective vital signs Vital Sign Date Time Temp Pulse Resp B/P (MAP) Pulse Ox O2 Delivery O2 Flow Rate FiO2 07/20/24 15:21 65 18 107/71 07/20/24 14:00 97 07/20/24 08:50 Room Air* 0 21 07/20/24 08:00 98.1 98.1 medications Current Medications Medications Dose Ordered Sig/Damon Route Start Time Stop Time Status Last Admin Dose Admin Diagnostic Test (Pha) 1 strip IQ4HR 07/20/24 00:00 07/20/24 16:00 1 STRIP Insulin Human Regular IQ4HR SC 07/20/24 00:00 07/20/24 12:08 2 UNITS Dextrose 50 ml UD PRN IV 07/19/24 20:30 Acetaminophen 325 mg Q4HP PRN PO 07/19/24 20:30 Acetaminophen/ Hydrocodone Bitart 1 tab Q4HP PRN PO 07/19/24 20:30 Enoxaparin Sodium 40 mg DAILY SC 07/20/24 10:00 07/20/24 10:44 40 MG Zinc Sulfate 220 mg DAILY PO 07/20/24 10:00 07/20/24 10:43 220 MG Ascorbic Acid 500 mg BID PO 07/19/24 22:00 07/20/24 10:44 500 MG Multivitamins 1 tab DAILY PO 07/20/24 10:00 07/20/24 10:00 1 TAB Morphine Sulfate 2 mg Q4HPRN PRN IV 07/19/24 20:30 07/20/24 15:21 2 MG Nitroglycerin 0.4 mg Q5MINP PRN SL 07/19/24 20:30 Morphine Sulfate 2 mg Q30M PRN IV 07/19/24 20:30 Aspirin 81 mg DAILY PO 07/20/24 10:00 07/20/24 10:42 81 MG Atorvastatin Calcium 20 mg DAILY PO 07/20/24 10:00 07/20/24 10:43 20 MG Clopidogrel Bisulfate 75 mg DAILY PO 07/20/24 10:00 07/20/24 10:43 75 MG Docusate Sodium 100 mg BID PO 07/19/24 22:00 Furosemide 40 mg BID PO 07/19/24 22:00 07/20/24 10:42 40 MG Gabapentin 300 mg Q8HR PO 07/19/24 22:00 07/20/24 14:21 300 MG Acetaminophen/ Hydrocodone Bitart 1 tab Q6HR PRN PO 07/19/24 20:45 Lidocaine 1 patch DAILY TOP 07/20/24 10:00 07/20/24 10:41 1 PATCH Paroxetine HCl 20 mg DAILY PO 07/20/24 10:00 07/20/24 10:44 20 MG Polyethylene Glycol 17 gm DAILY PO 07/20/24 10:00 Baclofen 10 mg Q8HR PO 07/19/24 22:00 07/20/24 14:20 10 MG Albuterol 2.5 mg Q6HPRN PRN NEB 07/19/24 22:30 Ceftriaxone Sodium 50 ml @ 100 mls/hr DAILY@09 IV 07/21/24 09:00 Examination: GENERAL:Normal, LUNGS:Normal, CVS:Normal, ABDOMEN:Normal, SKIN:Normal, NEURO:Normal laboratory and microbiology Laboratory Tests 07/20/24 05:24 Test 07/20/24 05:24 Range/Units Serum Glucose 160 H 74-106 mg/dL Labs and/or images reviewed: Labs reviewed by me, Image(s) reviewed by me Problem List/Assessment/Plan Problem List/Assessment/Plan 1. chest pain no ACS cardiac consult, obtain echo, trend troponin, continue with aspirin and plavix 2. Diabetes Mellitus Type 2 with Hyperglycemia Initiate insulin sliding scale 3. Lactic Acidosis Initial lactic acid level is 2.3, which is elevated. No clear source of infection has been identified at this time. Repeat lactic acid level, Monitor for signs of infection 4. hx Cerebrovascular Accident (CVA) with Right-sided Deficit -Continue monitoring neurological status 5. Coronary Artery Disease status post recent stent -Resume home medications 6. acute cystitis with hematuria IV Rocephin Subjective: Awake and alert Objective: Patient was admitted for chest pain, troponins have been negative x3. Patient had recent stent placed [place]. Patient is pending cardiac consult. Patient had lactic acidosis at 2.3 however there is no signs of infection likely lab error. Patient was found to have acute cystitis was placed on IV Rocephin Plan: Awaiting cardiac clearance, insulin sliding scale, monitor for signs of infection, continue IV Rocephin, await urine culture Plan discussed with: Patient My Orders My Orders Orders - TAMI ROOT Procedure Category Date Status Time Urine Bacterial TATA 07/20/24 In Process Culture 06:33 Consistent DIET 07/20/24 Transmitted Carb(Ccho)Diabetes Breakfast Ceftriaxone 1gm/50ml PHA 07/21/24 In Process D5w (Rocephin) 09:00 Date of Service: Jul 20, 2024 Billing Provider: CAL MARTINO MD Common Visit Codes: [id number] INP/OBS CARE (MOD) TAMI ROOT Jul 20, 2024 17:17
[2024-07-20 17:39] VITALS: O2SAT 100
[2024-07-20 19:34] VITALS: PULSE 68; RESP 12; O2SAT 96
--- NOTE | 2024-07-20 21:58 | DVHINCON2 ---
Date of service: Jul 20, 2024 History of Present Illness HPI Patient is a 59-year-old female who presented to the hospital with chest pain started around the day ago. She was found to have low blood pressure of 80s. It is of note that the patient was found to have coronary artery disease and was sent for possible bypass surgery around a week ago to [place]. As per patient, she did not have bypass surgery ended up having 1 stent. It is of note that the patient did have multivessel coronary artery disease recently. She mentions compliance with aspirin/Plavix. Cardiology was involved for cardiac catheterization with self-care. Home Meds Active Scripts Lidocaine (LIDODERM 5% TOPICAL PATCH) 1 Patch Ph, 1 PATCH TOP DAILY for 30 Days, #30 PATCH 0 Refills Prov:MIAN ROMO [employer] 06/02/24 Polyethylene Glycol 3350 (Miralax) 17 Gm Pow, 17 GM PO DAILY for 15 Days, #15 POW Prov:TED HUSSEIN [employer] 05/03/24 Albuterol Sulfate (Albuterol Sulfate Hfa) 108 Mcg/Act Aer, 108 MCG IN BID PRN for 10 Days, #1 AER 0 Refills Prov:LILI LUNSFORD DO 12/01/22 Reported Medications Docusate Sodium (Docusate Sodium) 100 Mg Cap, 1 CAP PO BID for 30 Days, #60 07/03/24 Simvastatin (Simvastatin) 20 Mg Tab, 1 TAB PO DAILY for 90 Days, #90 07/03/24 Hydrocodone-Acetaminophen (Hydrocodone Bitartrate/AC 10-325 mg) 1 Tab Tab, 1 TAB PO Q6HR PRN for CHRONIC PAIN for 30 Days, #120 07/03/24 Meloxicam (Meloxicam) 15 Mg Tab, 1 TAB PO DAILY for 30 Days, #30 07/03/24 Potassium Chloride (Potassium Chloride ER) 10 Meq Tab, 1 TAB PO BID for 90 Days, #180 07/03/24 Baclofen (Baclofen) 20 Mg Tab, 1 TAB PO BID for 90 Days, #180 07/03/24 Paroxetine Hydrochloride (Paroxetine Hydrochloride) 20 Mg Tab, 1 TAB PO DAILY for 90 Days, #90 05/01/24 Tirzepatide (Mounjaro) 7.5 Mg/0.5 Ml Inj, 7.5 MG SC QWEEKLY for 28 Days, #2 10/18/23 Sitagliptin Phosphate (Januvia) 100 Mg Tab, 1 TAB PO DAILY 10/18/23 Clopidogrel Bisulfate (CLOPIDOGREL) 75 Mg Tab, 1 TAB PO DAILY 10/18/23 Furosemide (Furosemide) 40 Mg Tab, 1 TAB PO BID 10/18/23 Atorvastatin Calcium (ATORVASTATIN CALCIUM) 20 Mg Tab, 1 TAB PO DAILY 10/17/23 Cholecalciferol (Vitamin D-3 Super Strengt) 2,000 Unit Tab, 1 TAB PO DAILY 10/17/23 Gabapentin (Gabapentin) 300 Mg Cap, 1 CAP PO Q8HR for NEUROPATHIC PAIN for 30 Days, #90 10/17/23 Aspirin (Aspirin Low Dose) 81 Mg Tab, 1 TAB PO DAILY 10/17/23 Balsalazide Disodium (Balsalazide Disodium) 750 Mg Cap, 3 CAP PO BID for 30 Days, #180 10/17/23 Past Medical History Others Past medical history includes coronary artery disease, diabetes mellitus, 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 She has had kidney stones/hydronephrosis/hydroureter before. Uses a walker for ambulation (secondary to old CVA). Patient was found to have multivessel coronary artery disease (left heart catheterization of July 09, 2024). On July 12 2024, the patient was sent to higher level of care ([facility]) for possible CABG surgery. As per patient, patient ended up having 1 stent and CABG was not performed (detailed information not available). Patient Family History: FH: breast cancer G8 SISTER FH: cancer FH: liver cancer G8 MOTHER, , Cause: Liver cancer Family history: Alzheimer's disease G8 MOTHER, , Cause: Liver cancer, Onset:Unknown Family history: Cardiovascular disease G8 FATHER, , Cause: CHF (congestive heart failure), Onset:Unknown Family history: Diabetes mellitus G8 BROTHER, Onset:Unknown Thyroid disease 19 CHILD Thyroid disease 19 CHILD Drugs: None Lives with: With family Review of Systems Cardiovascular: Chest Pain All Other Systems 14 point review of system was performed. Relevant findings as per above and as per HPI. Otherwise negative H&P Exam Vital Signs Vital Signs Date Time Temp Pulse Resp B/P (MAP) Pulse Ox O2 Delivery O2 Flow Rate FiO2 07/20/24 20:00 59 07/20/24 19:34 98.4 12 103/60 (74) 96 98.4 07/20/24 19:34 Room Air* 0 21 General Appeara: Well developed Head Exam: Normal inspection Eye Exam: bilateral eye PERRL Nasal Exam: Normal inspection Pulmonary/Respiratory: Lungs clear Cardiovascular/Chest: Regular rate Abdominal Exam: Normal bowel sounds, Soft Neuro/Mental St: Alert, Oriented Appearance: Appropriate appearance Eye contact/ Speech: Cooperative Labs/Xrays Labs Test 07/20/24 20:28 07/20/24 05:24 07/20/24 01:10 07/19/24 22:16 Range/Units POC Glucose 114 H 70-106 mg/dl White Blood Count 7.4 4.4-10.8 10^3/uL Red Blood Count 3.98 L 4.0-5.20 10^6/uL Hemoglobin 11.6 L 12.2-16.2 g/dL Hematocrit 35.6 L 36.0-46.0 % Mean Corpuscular Volume 89.5 80.0-100.0 fL Mean Corpuscular Hemoglobin 29.1 28.0-32.0 pg Mean Corpuscular Hemoglobin Concent 32.5 32.0-36.0 g/dL Red Cell Distribution Width 16.6 H 11.8-14.3 % Platelet Count 219 140-450 10^3/uL Mean Platelet Volume 8.5 6.9-10.8 fL Neutrophils (%) (Auto) 62.3 37.0-80.0 % Lymphocytes (%) (Auto) 28.9 10.0-50.0 % Monocytes (%) (Auto) 3.1 0.0-12.0 % Eosinophils (%) (Auto) 5.2 0.0-7.0 % Basophils (%) (Auto) 0.5 0.0-2.0 % Neutrophils # (Auto) 4.6 1.6-8.6 10 ^3/uL Lymphocytes # (Auto) 2.1 0.4-5.4 10 ^3/uL Monocytes # (Auto) 0.2 0-1.3 10 ^3/uL Eosinophils # (Auto) 0.4 0-0.8 10 ^3/uL Basophils # (Auto) 0 0-0.2 10 ^3/uL Nucleated Red Blood Cells 0.1 % Sodium Level 145 136-145 mmol/L Potassium Level 3.3 L 3.5-5.1 mmol/L Chloride Level 106 98-107 mmol/L Carbon Dioxide Level 29 20-31 mmol/L Anion Gap 10 5-15 Blood Urea Nitrogen 20 9-23 mg/dL Creatinine 1.11 H 0.550-1.02 mg/dL Glomerular Filtration Rate Calc 57 >90 mL/min BUN/Creatinine Ratio 18.0 10.0-20.0 Serum Glucose 160 H 74-106 mg/dL Calcium Level 9.7 8.7-10.4 mg/dL Total Bilirubin 0.5 0.2-1.0 mg/dL Aspartate Amino Transferase (AST) 8 L 13-40 U/L Alanine Aminotransferase (ALT) 15 7-40 U/L Alkaline Phosphatase 105 46-116 U/L Total Protein 6.4 5.7-8.2 g/dL Albumin 4.2 3.2-4.8 g/dL Urine Color Yellow Yellow Urine Clarity Turbid H Clear Urine pH 5.0 5.0-9.0 Urine Specific [place] 1.018 1.001-1.035 Urine Protein Negative Negative Urine Ketones Negative Negative Urine Blood Negative Negative /uL Urine Nitrite 2+ H Negative Urine Bilirubin Negative Negative Urine Urobilinogen Normal Negative mg/dL Urine Leukocyte Esterase 3+ Negative /uL Urine RBC 147 0 - 4 /hpf Urine WBC Clumps Present None Seen /hpf Urine Microscopic WBC 191 H 0-5 /HPF Urine Squamous Epithelial Cells Few <5 /hpf Urine Bacteria Mod H None Seen /hpf Urine Hyaline Casts Mod 0 - 2 /lpf Urine Mucus Few None Seen Urine Glucose 2+ H Normal mg/dL Troponin I High Sensitivity 21 </=34 ng/L Test 07/19/24 21:19 07/19/24 19:09 Range/Units Lactic Acid Level 2.6 *H 0.4-2.0 mmol/L B-Type Natriuretic Peptide 118.36 0-100 pg/mL Assessment/Plan Plan Patient is a 59-year-old female who presented to the hospital with chest pain started around the day ago. She was found to have low blood pressure of 80s. It is of note that the patient was found to have coronary artery disease and was sent for possible bypass surgery around a week ago to [facility]. As per patient, she did not have bypass surgery ended up having 1 stent. It is of note that the patient did have multivessel coronary artery disease recently. She mentions compliance with aspirin/Plavix. Cardiology was involved for cardiac aspects of care. Does have history of HFpEF. Not in acute distress. No JVD. Mucosa is pink and dry. No carotid bruit. Lungs are clear to auscultation. Not using accessory muscles of breathing. Cardiac: Regular, no thrills/gallop. Abdomen is soft. Lower abdominal tenderness can be elicited. There is no rebound. Bowel sound is positive There was no gross mass/hepatomegaly. Extremities do not reveal edema. Dorsalis pedis is 2+ bilateral. Past medical history includes coronary artery disease, diabetes mellitus, old h istory of CVA with residual aphasia and left hemiparesis, hyperlipidemia, carotid artery disease, status post carotid endarterectomy, kidney stones, Crohn's disease, ulcerative colitis, inflammatory bowel disease, hypertension, morbid obesity, CHF, history of HFpEF, diverticular disease, old history of cholecystectomy, hernia repair, degenerative disc disease (lumbar spine) history of cervical cancer/colon cancer and its treatment/surgery and old history of uterine prolapse surgery/colectomy. She has had kidney stones/hydronephrosis/hydroureter before. Uses a walker for ambulation (secondary to old CVA). Patient was found to have multivessel coronary artery disease (left heart catheterization of July 09, 2024). On July 12 2024, the patient was sent to higher level of care ([facility]) for possible CABG surgery. As per patient, patient ended up having 1 stent and CABG was not performed (detailed information not available). Echocardiogram of December 16, 2022 (performed in [facility]) revealed ejection fraction of 60%, mild TR and right ventricular systolic pressure of 27 mm Hg. Echocardiogram of October 18, 2023 reported ejection fraction 55-60%, mild MR/TR and right ventricular systolic pressure of 25 mm Echocardiogram of May 05, 2024 revealed ejection fraction of 50-55%, normal diastolic, trace MR/TR and right ventricular systolic pressure of 28 mm Hg Echocardiogram of July 05, 2024 had revealed ejection fraction of 40%, trace MR/TR and right ventricular systolic pressure of 30 mm Hg Nuclear stress test of January 03, 2022 (performed as outpatient) revealed ejection fraction of 80% and no evidence for ischemia/scar. Left heart catheterization of July 09 2024 had revealed triple-vessel coronary artery disease Creatinine: 1.23-1.11 Potassium: 4.0-3.3 Troponin (high sensitive) 21 - - 21 BNP: 118.36 Chest x-ray reported: IMPRESSION: No abnormality demonstrated. EKG reveals sinus rhythm, nonspecific ST-T changes, questionable old inferior [place] Tele reveals sinus sinus rhythm Patient is a 59-year-old female who presents with chest discomfort and generalized weakness. The patient does have history of inflammatory bowel disease that was acting out few weeks ago. Did have non-STEMI in early July. Was sent to [facility] for possible CABG as she was found to have multivessel coronary artery disease. As per patient, instead of CABG the patient was given 1 stent. Recognizing comorbidities and history of multivessel coronary artery disease patient is considered high risk. Presentation is evaluated to be unstable angina at this point. To continue aspirin/Plavix. Suggestion is to transferred to [facility]/[place] for repeat of ischemic workup/angiogram as she is known to have multivessel disease with high-risk features. Chest pain Unstable angina Coronary artery disease Triple-vessel coronary artery disease History of old CVA with left hemiparesis History of Crohn disease/ulcerative colitis Morbid obesity Constipation Hyperlipidemia Status post carotid endarterectomy Diverticular disease, history of Cardiac suggestion for management: Manage in tele Follow-up electrolytes and kidney function tests and correct abnormalities. Keep potassium above 4 and magnesium above 2 Full anticoagulation at this point Aspirin/Plavix Transferred to [facility]/[place] for repeat of ischemic workup/cardiac catheterization in a patient who is known to have multiple vessel coronary artery disease with high-risk features and recent PCI (was suggested to have bypass surgery at recent admission) Further evaluation and management depends on the above and clinical course Thank you for consultation A total of 75 minutes was spent reviewing the patient record, examining the patient, making a diagnostic and therapeutic plan, discussing this plan with medical personnel, following up on diagnostic studies and following the patient for clinical stability excluding any and all procedures. At least 50% of this time was spent in direct, [id number] contact. Thank you for allowing me to participate in this patient's care. Further recommendations will depend on patient's clinical course. Please do not hesitate to contact me if you have any questions or concerns. This medical document was created using electronic medical record system with [employer] computerized dictation system. Although this document has been carefully reviewed, there may still be some phonetic and typographical errors. These areas are purely typographical due to the imperfection of the software programs, and do not reflect any compromise in the patient's medical care Plan discussed with: Patient, Other (Nurse) BALTAZAR SOMMERS MD Jul 20, 2024 21:58
[2024-07-21 07:34] VITALS: O2SAT 96
[2024-07-21 07:45] VITALS: PULSE 66; O2SAT 95
--- NOTE | 2024-07-21 08:32 | DVHPN2 ---
Progress Note - Dictate Date Seen: Jul 21, 2024 Medical Necessity Reason Pt with a Central, PICC or Fol: No vital signs Vital Sign Date Time Temp Pulse Resp B/P (MAP) Pulse Ox O2 Delivery O2 Flow Rate FiO2 07/21/24 07:34 96 Room Air* 0 21 07/21/24 06:34 61 16 91/49 (63) 07/21/24 05:06 98.6 98.6 medications Current Medications Medications Dose Ordered Sig/Damon Route Start Time Stop Time Status Last Admin Dose Admin Diagnostic Test (Pha) 1 strip IQ4HR 07/20/24 00:00 07/21/24 04:24 1 STRIP Insulin Human Regular IQ4HR SC 07/20/24 00:00 07/21/24 04:33 8 UNITS Dextrose 50 ml UD PRN IV 07/19/24 20:30 Acetaminophen 325 mg Q4HP PRN PO 07/19/24 20:30 Acetaminophen/ Hydrocodone Bitart 1 tab Q4HP PRN PO 07/19/24 20:30 Enoxaparin Sodium 40 mg DAILY SC 07/20/24 10:00 07/20/24 10:44 40 MG Zinc Sulfate 220 mg DAILY PO 07/20/24 10:00 07/20/24 10:43 220 MG Ascorbic Acid 500 mg BID PO 07/19/24 22:00 07/20/24 21:54 500 MG Multivitamins 1 tab DAILY PO 07/20/24 10:00 07/20/24 10:00 1 TAB Morphine Sulfate 2 mg Q4HPRN PRN IV 07/19/24 20:30 07/21/24 04:12 2 MG Nitroglycerin 0.4 mg Q5MINP PRN SL 07/19/24 20:30 Morphine Sulfate 2 mg Q30M PRN IV 07/19/24 20:30 Aspirin 81 mg DAILY PO 07/20/24 10:00 07/20/24 10:42 81 MG Atorvastatin Calcium 20 mg DAILY PO 07/20/24 10:00 07/20/24 10:43 20 MG Clopidogrel Bisulfate 75 mg DAILY PO 07/20/24 10:00 07/20/24 10:43 75 MG Docusate Sodium 100 mg BID PO 07/19/24 22:00 07/20/24 21:54 100 MG Furosemide 40 mg BID PO 07/19/24 22:00 07/20/24 21:55 40 MG Gabapentin 300 mg Q8HR PO 07/19/24 22:00 07/21/24 06:06 300 MG Acetaminophen/ Hydrocodone Bitart 1 tab Q6HR PRN PO 07/19/24 20:45 Lidocaine 1 patch DAILY TOP 07/20/24 10:00 07/20/24 10:41 1 PATCH Paroxetine HCl 20 mg DAILY PO 07/20/24 10:00 07/20/24 10:44 20 MG Polyethylene Glycol 17 gm DAILY PO 07/20/24 10:00 Baclofen 10 mg Q8HR PO 07/19/24 22:00 07/21/24 06:06 10 MG Albuterol 2.5 mg Q6HPRN PRN NEB 07/19/24 22:30 Ceftriaxone Sodium 50 ml @ 100 mls/hr DAILY@09 IV 07/21/24 09:00 laboratory and microbiology Laboratory Tests 07/20/24 05:24 Test 07/20/24 05:24 Range/Units Serum Glucose 160 H 74-106 mg/dL Assessment/Plan Patient is a 59-year-old female who presented to the hospital with chest pain started around the day ago. She was found to have low blood pressure of 80s. It is of note that the patient was found to have coronary artery disease and was sent for possible bypass surgery around a week ago to [place]. As per patient, she did not have bypass surgery and ended up having 1 stent. It is of note that the patient did have multivessel coronary artery disease recently. She mentions compliance with aspirin/Plavix. Cardiology was involved for cardiac aspects of care. Does have history of HFpEF. Not in acute distress. No JVD. Mucosa is pink and dry. No carotid bruit. Lungs are clear to auscultation. Not using accessory muscles of breathing. Cardiac: Regular, no thrills/gallop. Abdomen is soft. Lower abdominal tenderness can be elicited. There is no rebound. Bowel sound is positive There was no gross mass/hepatomegaly. Extremities do not reveal edema. Dorsalis pedis is 2+ bilateral. 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 She has had kidney stones/hydronephrosis/hydroureter before. Uses a walker for ambulation (secondary to old CVA). Patient was found to have multivessel coronary artery disease (left heart catheterization of July 09, 2024). On July 12 2024, the patient was sent to higher level of care ([place]) for possible CABG surgery. As per patient, patient ended up having 1 stent and CABG was not performed (detailed information not available). Echocardiogram of December 16, 2022 (performed in [facility]) revealed ejection fraction of 60%, mild TR and right ventricular systolic pressure of 27 mm Hg. Echocardiogram of October 18, 2023 reported ejection fraction 55-60%, mild MR/TR and right ventricular systolic pressure of 25 mm Echocardiogram of May 05, 2024 revealed ejection fraction of 50-55%, normal diastolic, trace MR/TR and right ventricular systolic pressure of 28 mm Hg Echocardiogram of July 05, 2024 had revealed ejection fraction of 40%, trace MR/TR and right ventricular systolic pressure of 30 mm Hg Nuclear stress test of January 03, 2022 (performed as outpatient) revealed ejection fraction of 80% and no evidence for ischemia/scar. Left heart catheterization of July 09 2024 had revealed triple-vessel coronary artery disease Creatinine: 1.23 - 1.11 Potassium: 4.0 - 3.3 Troponin (high sensitive): 21 - 19 - 21 BNP: 118.36 Chest x-ray reported: IMPRESSION: No abnormality demonstrated. EKG reveals sinus rhythm, nonspecific ST-T changes, questionable old inferior MD Tele reveals sinus sinus rhythm Patient is a 59-year-old female who presents with chest discomfort and generalized weakness. The patient does have history of inflammatory bowel disease that was acting out few weeks ago. Did have non-STEMI in early July. Was sent to [place] for possible CABG as she was found to have multivessel coronary artery disease. As per patient, instead of CABG the patient was given 1 stent. Recognizing comorbidities and history of multivessel coronary artery disease patient is considered high risk. Presentation is evaluated to be unstable angina at this point. To continue aspirin/Plavix. Suggestion is to transferred to high level of care/[place] for repeat of ischemic workup/angiogram as she is known to have multivessel disease with high-risk features. Chest pain Unstable angina Coronary artery disease Triple-vessel coronary artery disease History of old CVA with left hemiparesis History of Crohn disease/ulcerative colitis Morbid obesity Constipation Hyperlipidemia Status post carotid endarterectomy Diverticular disease, history of Cardiac suggestion for management: Manage in tele Follow-up electrolytes and kidney function tests and correct abnormalities. Keep potassium above 4 and magnesium above 2 Full anticoagulation at this point Aspirin/Plavix Transferred to [facility] [place] for repeat of ischemic workup/cardiac catheterization in a patient who is known to have multiple vessel coronary artery disease with high-risk features and recent PCI (was suggested to have bypass surgery at recent admission) Further evaluation and management depends on the above and clinical course A total of 55 minutes was spent reviewing the patient record, examining the patient, making a diagnostic and therapeutic plan, discussing this plan with medical personnel, following up on diagnostic studies and following the patient for clinical stability excluding any and all procedures. At least 50% of this time was spent in direct, [id number] contact. Thank you for allowing me to participate in this patient's care. Further recommendations will depend on patient's clinical course. Please do not hesitate to contact me if you have any questions or concerns. This medical document was created using electronic medical record system with [employer] computerized dictation system. Although this document has been carefully reviewed, there may still be some phonetic and typographical errors. These areas are purely typographical due to the imperfection of the software programs, and do not reflect any compromise in the patient's medical care Plan discussed with: Patient, Other (nurse) BALTAZAR SOMMERS MD Jul 21, 2024 08:31
[2024-07-21] MEDS: cefTRIAXone 1GM/50ML D5W 50 ML IV SCH (09:25)
[2024-07-21 10:09] LABS: Basophils # (auto) 0.1 10 ^3/uL (0-0.2); Basophils % (auto) 0.8 % (0.0-2.0); Eosinophils # (auto) 0.4 10 ^3/uL (0-0.8); Eosinophils % (auto) 5.9 % (0.0-7.0); Hematocrit 35.8 % (36.0-46.0); Hemoglobin 11.9 g/dL (12.2-16.2); Lymphocytes # (auto) 1.5 10 ^3/uL (0.4-5.4); Lymphocytes % (auto) 23.8 % (10.0-50.0); Mean Corpuscular Hgb Conc. 33.3 g/dL (32.0-36.0); Mean Corpuscular Volume 90.2 fL (80.0-100.0); Monocytes # (auto) 0.2 10 ^3/uL (0-1.3); Monocytes % (auto) 3.2 % (0.0-12.0); Neutrophils # (auto) 4.1 10 ^3/uL (1.6-8.6); Neutrophils % (auto) 66.3 % (37.0-80.0); Nucleated Red Blood Cells % 0.1 %; Platelet Count (auto) 182 10^3/uL (140-450); Red Blood Cells 3.98 10^6/uL (4.0-5.20); Red Cell Distribution Width 16.5 % (11.8-14.3); White Blood Cell 6.1 10^3/uL (4.4-10.8)
[2024-07-21 10:24] LABS: Alanine Aminotransferase 13 U/L (7-40); Albumin 4.2 g/dL (3.2-4.8); Alkaline Phosphatase 102 U/L (46-116); Anion Gap 11 (5-15); Aspartate Aminotransferase 14 U/L (13-40); Blood Urea Nitrogen 19 mg/dL (9-23); Calcium 9.7 mg/dL (8.7-10.4); Chloride 98 mmol/L (98-107); Potassium 3.7 mmol/L (3.5-5.1); Sodium 141 mmol/L (136-145); Total Protein 6.2 g/dL (5.7-8.2)
[2024-07-21 10:25] LABS: Bilirubin, Total 0.6 mg/dL (0.2-1.0); Carbon Dioxide 32 mmol/L (20-31); Glucose 269 mg/dL (74-106)
--- NOTE | 2024-07-21 15:16 | DVHPN2 ---
Progress Note - Dictate Medical Necessity Reason Pt with a Central, PICC or Fol: No vital signs Vital Sign Date Time Temp Pulse Resp B/P (MAP) Pulse Ox O2 Delivery O2 Flow Rate FiO2 07/21/24 14:54 70 11 99/61 07/21/24 12:00 98.3 95 98.3 07/21/24 07:45 Room Air* 0 21 medications Current Medications Medications Dose Ordered Sig/Damon Route Start Time Stop Time Status Last Admin Dose Admin Diagnostic Test (Pha) 1 strip IQ4HR 07/20/24 00:00 07/21/24 12:02 1 STRIP Insulin Human Regular IQ4HR SC 07/20/24 00:00 07/21/24 12:05 8 UNITS Dextrose 50 ml UD PRN IV 07/19/24 20:30 Acetaminophen 325 mg Q4HP PRN PO 07/19/24 20:30 Acetaminophen/ Hydrocodone Bitart 1 tab Q4HP PRN PO 07/19/24 20:30 Enoxaparin Sodium 40 mg DAILY SC 07/20/24 10:00 07/21/24 10:32 40 MG Zinc Sulfate 220 mg DAILY PO 07/20/24 10:00 07/21/24 10:33 220 MG Ascorbic Acid 500 mg BID PO 07/19/24 22:00 07/21/24 10:32 500 MG Multivitamins 1 tab DAILY PO 07/20/24 10:00 07/21/24 10:33 1 TAB Morphine Sulfate 2 mg Q4HPRN PRN IV 07/19/24 20:30 07/21/24 14:20 2 MG Nitroglycerin 0.4 mg Q5MINP PRN SL 07/19/24 20:30 Morphine Sulfate 2 mg Q30M PRN IV 07/19/24 20:30 Aspirin 81 mg DAILY PO 07/20/24 10:00 07/21/24 10:32 81 MG Atorvastatin Calcium 20 mg DAILY PO 07/20/24 10:00 07/21/24 10:32 20 MG Clopidogrel Bisulfate 75 mg DAILY PO 07/20/24 10:00 07/21/24 10:32 75 MG Docusate Sodium 100 mg BID PO 07/19/24 22:00 07/21/24 10:32 100 MG Furosemide 40 mg BID PO 07/19/24 22:00 07/20/24 21:55 40 MG Gabapentin 300 mg Q8HR PO 07/19/24 22:00 07/21/24 14:19 300 MG Acetaminophen/ Hydrocodone Bitart 1 tab Q6HR PRN PO 07/19/24 20:45 Lidocaine 1 patch DAILY TOP 07/20/24 10:00 07/21/24 10:32 1 PATCH Paroxetine HCl 20 mg DAILY PO 07/20/24 10:00 07/21/24 10:33 20 MG Polyethylene Glycol 17 gm DAILY PO 07/20/24 10:00 07/21/24 10:32 17 GM Baclofen 10 mg Q8HR PO 07/19/24 22:00 07/21/24 14:19 10 MG Albuterol 2.5 mg Q6HPRN PRN NEB 07/19/24 22:30 Ceftriaxone Sodium 50 ml @ 100 mls/hr DAILY@09 IV 07/21/24 09:00 07/21/24 09:25 100 MLS/HR laboratory and microbiology Laboratory Tests 07/21/24 10:01 Test 07/21/24 10:01 Range/Units Serum Glucose 269 H 74-106 mg/dL TED HUSSEIN RN HEMODIALYSIS Jul 21, 2024 15:16
[2024-07-21] MEDS: SODIUM CHLORIDE 0.9% 500 ML IV ONE (17:08)
[2024-07-21 19:00] VITALS: O2SAT 96
--- NOTE | 2024-07-21 21:33 | DVHDS2 ---
Discharge Summary Date of Admission Jul 19, 2024 at 20:27 Date of Discharge: Jul 21, 2024 Labs/Diagnostic Data: Laboratory Results Test 07/21/24 20:49 07/21/24 10:01 07/20/24 01:10 07/19/24 22:16 POC Glucose 151 mg/dl (70-106) White Blood Count 6.1 10^3/uL (4.4-10.8) Red Blood Count 3.98 10^6/uL (4.0-5.20) Hemoglobin 11.9 g/dL (12.2-16.2) Hematocrit 35.8 % (36.0-46.0) Mean Corpuscular Volume 90.2 fL (80.0-100.0) Mean Corpuscular Hemoglobin 30.0 pg (28.0-32.0) Mean Corpuscular Hemoglobin Concent 33.3 g/dL (32.0-36.0) Red Cell Distribution Width 16.5 % (11.8-14.3) Platelet Count 182 10^3/uL (140-450) Mean Platelet Volume 8.3 fL (6.9-10.8) Neutrophils (%) (Auto) 66.3 % (37.0-80.0) Lymphocytes (%) (Auto) 23.8 % (10.0-50.0) Monocytes (%) (Auto) 3.2 % (0.0-12.0) Eosinophils (%) (Auto) 5.9 % (0.0-7.0) Basophils (%) (Auto) 0.8 % (0.0-2.0) Neutrophils # (Auto) 4.1 10 ^3/uL (1.6-8.6) Lymphocytes # (Auto) 1.5 10 ^3/uL (0.4-5.4) Monocytes # (Auto) 0.2 10 ^3/uL (0-1.3) Eosinophils # (Auto) 0.4 10 ^3/uL (0-0.8) Basophils # (Auto) 0.1 10 ^3/uL (0-0.2) Nucleated Red Blood Cells 0.1 % Sodium Level 141 mmol/L (136-145) Potassium Level 3.7 mmol/L (3.5-5.1) Chloride Level 98 mmol/L (98-107) Carbon Dioxide Level 32 mmol/L (20-31) Anion Gap 11 (5-15) Blood Urea Nitrogen 19 mg/dL (9-23) Creatinine 1.12 mg/dL (0.550-1.02) Glomerular Filtration Rate Calc 56 mL/min (>90) BUN/Creatinine Ratio 17.0 (10.0-20.0) Serum Glucose 269 mg/dL (74-106) Calcium Level 9.7 mg/dL (8.7-10.4) Total Bilirubin 0.6 mg/dL (0.2-1.0) Aspartate Amino Transferase (AST) 14 U/L (13-40) Alanine Aminotransferase (ALT) 13 U/L (7-40) Alkaline Phosphatase 102 U/L (46-116) Total Protein 6.2 g/dL (5.7-8.2) Albumin 4.2 g/dL (3.2-4.8) Urine Color Yellow (Yellow) Urine Clarity Turbid (Clear) Urine pH 5.0 (5.0-9.0) Urine Specific [place] 1.018 (1.001-1.035) Urine Protein Negative (Negative) Urine Ketones Negative (Negative) Urine Blood Negative /uL (Negative) Urine Nitrite 2+ (Negative) Urine Bilirubin Negative (Negative) Urine Urobilinogen Normal mg/dL (Negative) Urine Leukocyte Esterase 3+ /uL (Negative) Urine RBC 147 /hpf (0 - 4) Urine WBC Clumps Present /hpf (None Seen) Urine Microscopic WBC 191 /HPF (0-5) Urine Squamous Epithelial Cells Few /hpf (<5) Urine Bacteria Mod /hpf (None Seen) Urine Hyaline Casts Mod /lpf (0 - 2) Urine Mucus Few (None Seen) Urine Glucose 2+ mg/dL (Normal) Troponin I High Sensitivity 21 ng/L (</=34) Test 07/19/24 21:19 07/19/24 19:09 Lactic Acid Level 2.6 mmol/L (0.4-2.0) B-Type Natriuretic Peptide 118.36 pg/mL (0-100) Other Laboratory Tests 07/21/24 10:01 Brief Hx & Hospital Course: Anastacia Wilde, a patient with a history of coronary artery disease, type 2 diabetes, chronic systolic CHF, and CVA with residual right-sided deficit, presents with a 5-hour history of generalized weakness and nonspecific midresnal or chest pain. 59 year-old female that was admitted for unstable angina. Recent admission for CDiff colitis and Nstemi. Patient was transferred to [facility] for possible CABG as she was found to have a multivessel coronary artery disease. Per patient, she was only given one stent. Patient was seen and evaluated by mend worker Dr. Sabillon. Per Dr. Sabillon shell be transferred to higher level of care at [facility] for a repeat of ischemic, workup, angiogram, and possible PCI versus CABG. There were no complaints or new complaints upon discharge, all questions and concerns were answered. Patient was advised to return to the ER or call 911 if any headaches, dizziness, shortness of breath, chest pain, bleeding, fevers, or worsening of medical condition. Patient/Family was counseled about treatment plan, medications, possible side effects, patientverbalized understanding. All questions were answered to the best of my ability. The patient symptoms improved and they are okay to be DC. Condition at Discharge: Stable Final Diagnosis/Problems List Chest pain no ACS Diabetes Mellitus Type 2 with Hyperglycemia Lactic Acidosis hx Cerebrovascular Accident (CVA) with Right-sided Deficit Coronary Artery Disease status post recent stent acute cystitis with hematuria Discharge Disposition: Acute Care Facility Discharge Statement: "Patient was advised to return to the ER or call 911 if any headaches, dizziness, shortness of breath, chest pain, abdominal pain, bleeding, fevers, or worsening of medical condition. Patient was counseled about treatment plan, medications, possible side effects, patientverbalized understanding. All questions were answered to the best of my ability. This discharge took greater then 30 minutes in planning, reviewing documentation, counseling the patient, and discussing with other team members." ASSESSMENT ASSESSMENT Assessment TED HUSSEIN NP Jul 21, 2024 21:33
[2024-07-21] MEDS: HYDROcodone-ACET 5/325MG TAB PO PRN (23:07)
[2024-07-22 01:54] VITALS: BP 98/60; PULSE 62; RESP 18; TEMP 98.7; O2SAT 96
--- NOTE | 2024-07-22 10:28 | DVHPN2 ---
Progress Note - Dictate Date Seen: Jul 21, 2024 Medical Necessity Reason Pt with a Central, PICC or Fol: No vital signs Vital Sign Date Time Temp Pulse Resp B/P (MAP) Pulse Ox O2 Delivery O2 Flow Rate FiO2 07/22/24 01:54 98.7 62 18 98/60 (73) 96 98.7 07/21/24 19:20 Room Air* 0 21 Total Intake and Output 07/21/24 07/21/24 07/22/24 15:00 23:00 07:00 Intake Total 100 ml 500 ml Balance 100 ml 500 ml medications Current Medications Medications Dose Ordered Sig/Damon Route Start Time Stop Time Status Last Admin Dose Admin Diagnostic Test (Pha) 1 strip IQ4HR 07/20/24 00:00 07/22/24 00:50 1 STRIP Insulin Human Regular IQ4HR SC 07/20/24 00:00 07/22/24 00:52 4 UNITS Dextrose 50 ml UD PRN IV 07/19/24 20:30 Acetaminophen 325 mg Q4HP PRN PO 07/19/24 20:30 Acetaminophen/ Hydrocodone Bitart 1 tab Q4HP PRN PO 07/19/24 20:30 07/21/24 23:07 1 TAB Enoxaparin Sodium 40 mg DAILY SC 07/20/24 10:00 07/21/24 10:32 40 MG Zinc Sulfate 220 mg DAILY PO 07/20/24 10:00 07/21/24 10:33 220 MG Ascorbic Acid 500 mg BID PO 07/19/24 22:00 07/21/24 23:07 500 MG Multivitamins 1 tab DAILY PO 07/20/24 10:00 07/21/24 10:33 1 TAB Morphine Sulfate 2 mg Q4HPRN PRN IV 07/19/24 20:30 07/22/24 00:57 2 MG Nitroglycerin 0.4 mg Q5MINP PRN SL 07/19/24 20:30 Morphine Sulfate 2 mg Q30M PRN IV 07/19/24 20:30 Aspirin 81 mg DAILY PO 07/20/24 10:00 07/21/24 10:32 81 MG Atorvastatin Calcium 20 mg DAILY PO 07/20/24 10:00 07/21/24 10:32 20 MG Clopidogrel Bisulfate 75 mg DAILY PO 07/20/24 10:00 07/21/24 10:32 75 MG Docusate Sodium 100 mg BID PO 07/19/24 22:00 07/21/24 23:07 100 MG Furosemide 40 mg BID PO 07/19/24 22:00 07/21/24 23:07 40 MG Gabapentin 300 mg Q8HR PO 07/19/24 22:00 07/21/24 23:08 300 MG Acetaminophen/ Hydrocodone Bitart 1 tab Q6HR PRN PO 07/19/24 20:45 Lidocaine 1 patch DAILY TOP 07/20/24 10:00 07/21/24 10:32 1 PATCH Paroxetine HCl 20 mg DAILY PO 07/20/24 10:00 07/21/24 10:33 20 MG Polyethylene Glycol 17 gm DAILY PO 07/20/24 10:00 07/21/24 10:32 17 GM Baclofen 10 mg Q8HR PO 07/19/24 22:00 07/21/24 23:07 10 MG Albuterol 2.5 mg Q6HPRN PRN NEB 07/19/24 22:30 Ceftriaxone Sodium 50 ml @ 100 mls/hr DAILY@09 IV 07/21/24 09:00 07/21/24 09:25 100 MLS/HR objective General Appearance: alert, no distress HEENT: EOMI, PERRLA, normal external inspect of ears, no icterus, no nasal drainage Neck: no carotid bruit, no jugular venous distention (JVD), no lymphadenopathy Chest: normal thorax Respiratory: clear to auscultation, normal air movement Cardiovascular: regular rate and rhythm, no diastolic murmur, no jugular venous distention (JVD), no rub, no systolic murmur Abdominal: soft, no hepatomegaly, no mass, no splenomegaly, no tenderness Genitourinary: grossly normal external Musculoskeletal: no joint tenderness, no swelling Extremities: normal pulses, no calf tenderness, no clubbing, no cyanosis, no edema Skin: no bruising, no jaundice, no rash Neurological: alert, No focal deficit laboratory and microbiology Laboratory Tests 07/21/24 10:01 Test 07/21/24 10:01 Range/Units Serum Glucose 269 H 74-106 mg/dL Problem List 1. chest pain no ACS cardiac consult, obtain echo, trend troponin, continue with aspirin and plavix 2. Diabetes Mellitus Type 2 with Hyperglycemia Initiate insulin sliding scale 3. Lactic Acidosis Initial lactic acid level is 2.3, which is elevated. No clear source of infection has been identified at this time. Repeat lactic acid level, Monitor for signs of infection 4. hx Cerebrovascular Accident (CVA) with Right-sided Deficit -Continue monitoring neurological status 5. Coronary Artery Disease status post recent stent -Resume home medications 6. acute cystitis with hematuria IV Rocephin Assessment/Plan Subjective: Patient is awake and alert. Objective: Patient was admitted for unstable angina. She had a recent admission for C-diff colitis and Nstemi. Patient was transferred to [facility] for possible CABG as she was found to have a multivessel coronary artery disease. Per patient, she was only given one stent. Patient was seen and evaluated by manager business development hospice Dr. Sabillon. Per Dr. Sabillon shell need to be transferred to higher level of care at [facility] for a repeat of ischemic workup, angiogram, and possible PCI versus CABG. DC was held pending [facility] for transport to [place]. Plan: Continue current treatment. DC planning for tomorrow once transport to [facility] has been arranged. Plan discussed with: Patient, Other TED HUSSEIN HE[employer] CLAIMS EXAMINER Jul 22, 2024 10:27
== END 2024-07-22 01:46 | disposition short-term general hospital (02) | DRG 311 ==
LOC: EDBD 18:36 → ER 18:36 → OVERFLOW 20:27
PROVIDERS: ADMIT Nurse Practitioner; ATTEND Nurse Practitioner
DX: I20.0 Unstable angina (principal); E87.20 Acidosis, unspecified; N30.01 Acute cystitis with hematuria; I69.354 Hemiplegia and hemiparesis following cerebral infarction affecting left non-dominant side; K50.90 Crohn's disease, unspecified, without complications; I50.42 Chronic combined systolic (congestive) and diastolic (congestive) heart failure; E11.65 Type 2 diabetes mellitus with hyperglycemia; E66.01 Morbid (severe) obesity due to excess calories; E78.5 Hyperlipidemia, unspecified; K59.00 Constipation, unspecified; I11.0 Hypertensive heart disease with heart failure; K57.30 Diverticulosis of large intestine without perforation or abscess without bleeding; Z95.1 Presence of aortocoronary bypass graft; Z95.5 Presence of coronary angioplasty implant and graft; Z91.040 Latex allergy status; Z88.0 Allergy status to penicillin; Z88.8 Allergy status to other drugs, medicaments and biological substances; Z79.899 Other long term (current) drug therapy; Z79.891 Long term (current) use of opiate analgesic; Z79.1 Long term (current) use of non-steroidal anti-inflammatories (NSAID); Z79.82 Long term (current) use of aspirin; Z90.49 Acquired absence of other specified parts of digestive tract; Z80.0 Family history of malignant neoplasm of digestive organs; Z82.0 Family history of epilepsy and other diseases of the nervous system; Z82.49 Family history of ischemic heart disease and other diseases of the circulatory system; Z83.3 Family history of diabetes mellitus; Z80.3 Family history of malignant neoplasm of breast; Z79.84 Long term (current) use of oral hypoglycemic drugs; Z79.02 Long term (current) use of antithrombotics/antiplatelets; Z85.05 Personal history of malignant neoplasm of liver; I25.2 Old myocardial infarction; I69.320 Aphasia following cerebral infarction; Z85.038 Personal history of other malignant neoplasm of large intestine; Z85.41 Personal history of malignant neoplasm of cervix uteri; Z68.34 Body mass index [BMI] 34.0-34.9, adult
CPT/HCPCS: 36415; 71045; 80053; 81001; 82962; 83605; 83880; 84484; 85025; 87086; 87088; 87186; 93005; 96360; 96372; 99291; G0378; J1815

== ENCOUNTER 2024-07-28 12:40 | Inpatient (IN) | payer MEDICARE, MEDICAID ==
[~2024-07-28] VITALS: Ht 157.5 cm; Wt 75.1 kg
--- NOTE | 2024-07-28 12:46 | ED.PDOC ---
HPI Comments 59 y.o female with PMHx of CA, CVA x2 left sided deficits, Colitis, DM, HTN, presents to the ED via EMS for a chief complaint of chest pain radiating to her left arm and hand that started 45 minutes ago. Patient was with her daughter when pain presented, states she was near an urgent care and the staff there called 911. Patient denies any nausea, vomiting, abdominal pain, fever, chills, or leg swelling. Patient was seen here on 07/19/24 for similar pain, was seen by timber supervisor Dr. Churchill and "transferred to [facility] for a repeat ischemic workup and possible PCI versus CABG". Time Seen by MD: 12:36 Primary Care Provider: unknown Reviewed Notes: Nurses Notes, Flour Inspector Notes, Medications, Allergies Allergies: Coded Allergies: Latex (Verified Allergy, Mild, 06/02/24) INCLUDING TAPE, BROWN AND CLEAR TAPE Procaine (Verified Allergy, Unknown, 03/12/14) Uncoded Allergies: PENICILLIN (Allergy, Unknown, 07/19/24) Home Meds Active Scripts Lidocaine (LIDODERM 5% TOPICAL PATCH) 1 Patch Ph, 1 PATCH TOP DAILY for 30 Days, #30 PATCH 0 Refills Prov:MIAN ROMO YARDER OPERATOR 06/02/24 Polyethylene Glycol 3350 (Miralax) 17 Gm Pow, 17 GM PO DAILY for 15 Days, #15 POW Prov:TED HUSSEIN YARDER OPERATOR 05/03/24 Albuterol Sulfate (Albuterol Sulfate Hfa) 108 Mcg/Act Aer, 108 MCG IN BID PRN for 10 Days, #1 AER 0 Refills Prov:LILI LUNSFORD DO 12/01/22 Reported Medications Docusate Sodium (Docusate Sodium) 100 Mg Cap, 1 CAP PO BID for 30 Days, #60 07/03/24 Simvastatin (Simvastatin) 20 Mg Tab, 1 TAB PO DAILY for 90 Days, #90 07/03/24 Hydrocodone-Acetaminophen (Hydrocodone Bitartrate/AC 10-325 mg) 1 Tab Tab, 1 TAB PO Q6HR PRN for CHRONIC PAIN for 30 Days, #120 07/03/24 Meloxicam (Meloxicam) 15 Mg Tab, 1 TAB PO DAILY for 30 Days, #30 07/03/24 Potassium Chloride (Potassium Chloride ER) 10 Meq Tab, 1 TAB PO BID for 90 Days, #180 07/03/24 Baclofen (Baclofen) 20 Mg Tab, 1 TAB PO BID for 90 Days, #180 07/03/24 Paroxetine Hydrochloride (Paroxetine Hydrochloride) 20 Mg Tab, 1 TAB PO DAILY for 90 Days, #90 05/01/24 Tirzepatide (Mounjaro) 7.5 Mg/0.5 Ml Inj, 7.5 MG SC QWEEKLY for 28 Days, #2 10/18/23 Sitagliptin Phosphate (Januvia) 100 Mg Tab, 1 TAB PO DAILY 10/18/23 Clopidogrel Bisulfate (CLOPIDOGREL) 75 Mg Tab, 1 TAB PO DAILY 10/18/23 Furosemide (Furosemide) 40 Mg Tab, 1 TAB PO BID 10/18/23 Atorvastatin Calcium (ATORVASTATIN CALCIUM) 20 Mg Tab, 1 TAB PO DAILY 10/17/23 Cholecalciferol (Vitamin D-3 Super Strengt) 2,000 Unit Tab, 1 TAB PO DAILY 10/17/23 Gabapentin (Gabapentin) 300 Mg Cap, 1 CAP PO Q8HR for NEUROPATHIC PAIN for 30 Days, #90 10/17/23 Aspirin (Aspirin Low Dose) 81 Mg Tab, 1 TAB PO DAILY 10/17/23 Balsalazide Disodium (Balsalazide Disodium) 750 Mg Cap, 3 CAP PO BID for 30 Days, #180 10/17/23 Information Source: Patient, Emergency Med Personnel Mode of Arrival: EMS Severity: Moderate Timing: Minutes (45) Duration: Since onset Prehospital treatment: 12 Lead EKG, Stem Sizer Location: Chest (L), Substernal Radiation: Arm (L), Hand (L) Quality: Sharp Onset: At Rest Cardiac Risk Factors: Hyperlipidemia, HTN, Diabetes PE Risk Factors: None History of: CA Modifying Factors: Nothing Associated Signs and Symptoms: Other Past Medical History PAST MEDICAL HISTORY: Angina, CAD, CHF, CVA, DM, High Lipids, Kidney Stones, Liver, CA Surgical History: Cholecystectomy, Hernia Repair, PTCA PICTURE FRAMES INSPECTOR History: No Pertinent PICTURE FRAMES INSPECTOR History Family History Family History: Family hx of Cancer, Family hx of heart naveen Social History Smoker: Non-Smoker Alcohol: Denies ETOH Use Drugs: Denies Drug Use Lives In: Home Constitutional: denies: chills, diaphoresis, fatigue, fever, malaise, sweats, weakness, others EENTM: denies: blurred vision, double vision, ear bleeding, ear discharge, ear drainage, ear pain, ear ringing, eye pain, eye redness, hearing loss, mouth pain, mouth swelling, nasal discharge, nose bleeding, nose congestion, nose pain, photophobia, tearing, throat pain, throat swelling, voice changes, others Respiratory: denies: cough, hemoptysis, orthopnea, SOB at rest, shortness of breath, SOB with excertion, stridor, wheezing, others Cardiovascular: reports: chest pain, left arm pain; denies: dizzy spells, diaphoresis, Dyspnea on exertion, edema, irregular heart beat, lightheadedness, palpitations, PND, syncope, others Gastrointestinal: denies: abdomen distended, abdominal pain, blood streaked bowels, constipated, diarrhea, dysphagia, difficulty swallowing, hematemesis, melena, nausea, poor appetite, poor fluid intake, rectal bleeding, rectal pain, vomiting, others Genitourinary: denies: abnormal vagina bleeding, burning, dyspareunia, dysuria, flank pain, frequency, hematuria, incontinence, pain, , vagina discharge, urgency, others Neurological: denies: dizziness, fainting, headache, left sided numbness, left sided weakness, numbness, paresthesia, pre-existing deficit, right sided numbness, right sided weakness, seizure, speech problems, tingling, tremors, weakness, others Musculoskeletal: denies: back pain, gout, joint pain, joint swelling, muscle pain, muscle stiffness, neck pain, others Integumetry: denies: bruises, change in color, change in hair/nails, dryness, laceration, lesions, lumps, rash, wounds, others Allergic/Immunocompromised: denies: Difficulty Healing, Frequent Infections, Hives, Itching, others Hematologic/Lymphatic: denies: anemia, blood clots, easy bleeding, easy bruising, swollen glands, others Endocrine: denies: excessive hunger, excessive sweating, excessive thirst, excessive urination, flushing, intolerance to cold, intolerance to heat, unex plained weight gain, unexplained weight loss, others Psychiatric: denies: anxiety, bipolar disorder, depression, hopeless, panic disorder, schizophrenia, sleepless, suicidal, others All Other Systems: Reviewed and Negative Physical Exam General Appearance: Moderate Distress HEENT: Normal ENT Inspection, Pharynx Normal, TMs Normal Neck: Full Range of Motion, Non-Tender, Normal, Normal Inspection Respiratory: Chest Non-Tender, Lungs Clear, No Accessory Muscle Use, No Respiratory Distress, Normal Breath Sounds Cardiovascular: No Edema, No JVD, No Murmur, No Gallop, Normal Peripheral Pulses, Regular Rate/Rhythm Breast Exam: Deferred Gastrointestinal: No Organomegaly, Non Tender, No Pulsatile Mass, Normal Bowel Sounds, Soft Genitalia: Deferred Pelvic: Deferred Rectal: Deferred Extremities: No calf tenderness, Normal capillary refill, Normal inspection, Normal range of motion, Non-tender, No pedal edema Musculoskeletal : Apperance: Normal Neurologic: Alert, No Motor Deficits, No Sensory Deficits Cerebellar Function: NOT DONE Reflexes: NOT DONE Skin: Normal Color Peripheral Pulses: 3+ Radial (R), 3+ Radial (L) Lymphatic: No Adenopathy EKG EKG : Pulse Rate (adult): 79 Cardiac Rhythm: NSR Was a procedure done? Was a procedure done?: No CP Differential Dx Differential Diagnosis: A-fib, A-Flutter, Angina, Anxiety / Panic Attack, Atrial Dysrhythmia, Electrolyte Disorder, N/A Differential Diagnosis: Angina, Chest Wall Pain, Cholelithiasis, Costochondritis, Esophageal reflux/spasm, Gastritis, Myocardial Infarction, Pericarditis X-Ray, Labs, Meds, VS Vital Signs Date Time Temp Pulse Resp B/P (MAP) Pulse Ox O2 Delivery O2 Flow Rate FiO2 07/28/24 12:50 98.6 78 18 176/136 (149) 96 98.6 07/28/24 12:46 79 07/28/24 12:40 79 Lab Test 07/28/24 14:23 07/28/24 13:27 Range/Units Troponin I High Sensitivity 12 13 </=34 ng/L White Blood Count 6.9 4.4-10.8 10^3/uL Red Blood Count 4.19 4.0-5.20 10^6/uL Hemoglobin 12.6 12.2-16.2 g/dL Hematocrit 36.7 36.0-46.0 % Mean Corpuscular Volume 87.7 80.0-100.0 fL Mean Corpuscular Hemoglobin 30.1 28.0-32.0 pg Mean Corpuscular Hemoglobin Concent 34.3 32.0-36.0 g/dL Red Cell Distribution Width 16.9 H 11.8-14.3 % Platelet Count 309 140-450 10^3/uL Mean Platelet Volume 8.0 6.9-10.8 fL Neutrophils (%) (Auto) 57.5 37.0-80.0 % Lymphocytes (%) (Auto) 32.7 10.0-50.0 % Monocytes (%) (Auto) 4.3 0.0-12.0 % Eosinophils (%) (Auto) 4.4 0.0-7.0 % Basophils (%) (Auto) 1.1 0.0-2.0 % Neutrophils # (Auto) 3.9 1.6-8.6 10 ^3/uL Lymphocytes # (Auto) 2.2 0.4-5.4 10 ^3/uL Monocytes # (Auto) 0.3 0-1.3 10 ^3/uL Eosinophils # (Auto) 0.3 0-0.8 10 ^3/uL Basophils # (Auto) 0.1 0-0.2 10 ^3/uL Nucleated Red Blood Cells 0.1 % Sodium Level 140 136-145 mmol/L Potassium Level 3.9 3.5-5.1 mmol/L Chloride Level 106 98-107 mmol/L Carbon Dioxide Level 23 20-31 mmol/L Anion Gap 11 5-15 Blood Urea Nitrogen 17 9-23 mg/dL Creatinine 1.09 H 0.550-1.02 mg/dL Glomerular Filtration Rate Calc 58 >90 mL/min BUN/Creatinine Ratio 15.6 10.0-20.0 Serum Glucose 153 H 74-106 mg/dL Calcium Level 10.2 8.7-10.4 mg/dL Current Medications Medications (Trade) Dose Ordered Sig/Damon Route Start Time Stop Time Status Last Admin Aspirin 325 mg ONCE ONCE PO 07/28/24 12:45 07/28/24 12:46 DC 07/28/24 13:57 Patient alert. Complaining of chest pain. Blood pressure elevated. Saturation pristine on room air. Heart rate within normal limits. EKG reviewed does not show any acute changes. Currently on Plavix. Was given aspirin. Possibly will need placement. Reviewed her previous visit. Continue monitoring. Spoke with her hospitalist that was taking care of the patient when she was here last. She is on blood thinner. No further workup is needed as per her hospitalist. Dr. Sabillon wanted the patient to be admitted because she will need possible cardiac workup with CABG. She was transferred last time to [facility] for CABG but [place] has only placed a stent for which Dr. Sabillon thinks will not help. Dr. Sabillon wanted to admit this patient Explained to the patient. AP portable chest HISTORY: sob Comparison: XY CHEST PORTABLE on DOS: 07/19/24, XY CHEST PORTABLE on DOS: 07/04/24, XY CHEST PORTABLE on DOS: 07/03/24 FINDINGS: Heart size normal. No infiltrates or effusions. No destructive lesions of bone. IMPRESSION: 1. No acute cardiopulmonary pathology Time of 1ST Reevaluation: 12:44 Reevaluation 1ST: Unchanged Time of 2ND Reevaluation: 15:12 Reevaluation 2ND: Unchanged Patient Education/Counseling: Diagnosis, Treatment, Prognosis Family Education/Counseling: No Family Present Departure 1 Departure Time of Disposition: 13:07 Impression: Primary Impression: Chest pain of unknown etiology Additional Impression: Unstable angina Disposition: ADMITTED INPATIENT Admit to: Med Surg Condition: Guarded Critical Care Note Critical Care Time?: Yes (90 min-critical care time only) Critical care comment: Continues to have chest pain Stability Stability form required: No Heart Score Heart Score: Heart Score Response (Comments) Value History Moderate Suspicious 1 EKG Normal 0 Age 45-64 1 Risk Factors >3 or Hx ASHD 2 Troponin Normal limit 0 Total 4 I personally scribed for BRANDT DAMON MD ([email or web address]) on 07/28/24 at 12:46. Electronically submitted by Keyonna Mcnally ([facility]). I personally scribed for BRANDT DAMON MD ([email or web address]) on 07/28/24 at 14:35. Electronically submitted by Keyonna Mcnally ([facility]). BRANDT DAMON MD Jul 28, 2024 12:46
--- NOTE | 2024-07-28 13:35 | DVH ---
AP portable chest HISTORY: sob Comparison: XY CHEST PORTABLE on DOS: 07/19/24, XY CHEST PORTABLE on DOS: 07/04/24, XY CHEST PORTABLE o n DOS: 07/03/24 FINDINGS: Heart size normal. No infiltrates or effusions. No destructive lesions of bone. IMPRESSION: 1. No acute cardiopulmonary pathology
[2024-07-28 13:40] LABS: Basophils # (auto) 0.1 10 ^3/uL (0-0.2); Basophils % (auto) 1.1 % (0.0-2.0); Eosinophils # (auto) 0.3 10 ^3/uL (0-0.8); Eosinophils % (auto) 4.4 % (0.0-7.0); Hematocrit 36.7 % (36.0-46.0); Hemoglobin 12.6 g/dL (12.2-16.2); Lymphocytes # (auto) 2.2 10 ^3/uL (0.4-5.4); Lymphocytes % (auto) 32.7 % (10.0-50.0); Mean Corpuscular Hemoglobin 30.1 pg (28.0-32.0); Mean Corpuscular Hgb Conc. 34.3 g/dL (32.0-36.0); Mean Corpuscular Volume 87.7 fL (80.0-100.0); Monocytes # (auto) 0.3 10 ^3/uL (0-1.3); Monocytes % (auto) 4.3 % (0.0-12.0); Neutrophils # (auto) 3.9 10 ^3/uL (1.6-8.6); Neutrophils % (auto) 57.5 % (37.0-80.0); Nucleated Red Blood Cells % 0.1 %; Platelet Count (auto) 309 10^3/uL (140-450); Red Blood Cells 4.19 10^6/uL (4.0-5.20); Red Cell Distribution Width 16.9 % (11.8-14.3); White Blood Cell 6.9 10^3/uL (4.4-10.8)
[2024-07-28 13:46] LABS: Chloride 106 mmol/L (98-107); Potassium 3.9 mmol/L (3.5-5.1); Sodium 140 mmol/L (136-145)
[2024-07-28 13:47] LABS: Anion Gap 11 (5-15); Carbon Dioxide 23 mmol/L (20-31)
[2024-07-28 13:48] LABS: Calcium 10.2 mg/dL (8.7-10.4)
[2024-07-28 13:52] LABS: BUN/Creatinine Ratio 15.6 (10.0-20.0); Blood Urea Nitrogen 17 mg/dL (9-23)
[2024-07-28 13:53] LABS: Glucose 153 mg/dL (74-106)
[2024-07-28] MEDS: ASPirin 325 MG TAB PO ONE (13:57)
[2024-07-28] MEDS ORDERED: NITROGLYCERIN 0.4 MG SL TAB SL PRN (17:30)
[2024-07-28] MEDS ORDERED: DOCUSATE SOD 100 MG CAP PO PRN (17:30)
[2024-07-28] MEDS ORDERED: ACETAMINOPHEN 325 MG TAB PO PRN (17:30)
--- NOTE | 2024-07-28 17:33 | DVHHP2 ---
Admitting Diagnosis: Chest pain History of Present Illness 59 y/o female patient with history of GA, HTN, CVA, DM, colitis presents with c/o chest pain that radiates to the left arm. While in the emergency department the patient was evaluated by the provider, As per provider: Labs, vital signs, and imagining monitored. Patient will be admitted for further evaluation and treatment. I discussed admission with the patient/family and is in agreement to treatment plan. Patient Family History: FH: breast cancer G8 SISTER FH: cancer FH: liver cancer G8 MOTHER, , Cause: Liver cancer Family history: Alzheimer's disease G8 MOTHER, , Cause: Liver cancer, Onset:Unknown Family history: Cardiovascular disease G8 FATHER, , Cause: CHF (congestive heart failure), Onset:Unknown Family history: Diabetes mellitus G8 BROTHER, Onset:Unknown Thyroid disease 19 CHILD Thyroid disease 19 CHILD Allergies: Coded Allergies: Latex (Verified Allergy, Mild, 06/02/24) INCLUDING TAPE, BROWN AND CLEAR TAPE Procaine (Verified Allergy, Unknown, 03/12/14) Uncoded Allergies: PENICILLIN (Allergy, Unknown, 07/19/24) Home Meds Active Scripts Lidocaine (LIDODERM 5% TOPICAL PATCH) 1 Patch Ph, 1 PATCH TOP DAILY for 30 Days, #30 PATCH 0 Refills Prov:MIAN ROMO MULTIMEDIA PRODUCER 06/02/24 Polyethylene Glycol 3350 (Miralax) 17 Gm Pow, 17 GM PO DAILY for 15 Days, #15 POW Prov:TED HUSSEIN MULTIMEDIA PRODUCER 05/03/24 Albuterol Sulfate (Albuterol Sulfate Hfa) 108 Mcg/Act Aer, 108 MCG IN BID PRN for 10 Days, #1 AER 0 Refills Prov:LILI LUNSFORD DO 12/01/22 Reported Medications Docusate Sodium (Docusate Sodium) 100 Mg Cap, 1 CAP PO BID for 30 Days, #60 07/03/24 Simvastatin (Simvastatin) 20 Mg Tab, 1 TAB PO DAILY for 90 Days, #90 07/03/24 Hydrocodone-Acetaminophen (Hydrocodone Bitartrate/AC 10-325 mg) 1 Tab Tab, 1 TAB PO Q6HR PRN for CHRONIC PAIN for 30 Days, #120 07/03/24 Meloxicam (Meloxicam) 15 Mg Tab, 1 TAB PO DAILY for 30 Days, #30 3/27/25 Potassium Chloride (Potassium Chloride ER) 10 Meq Tab, 1 TAB PO BID for 90 Days, #180 07/03/24 Baclofen (Baclofen) 20 Mg Tab, 1 TAB PO BID for 90 Days, #180 07/03/24 Paroxetine Hydrochloride (Paroxetine Hydrochloride) 20 Mg Tab, 1 TAB PO DAILY for 90 Days, #90 05/01/24 Tirzepatide (Mounjaro) 7.5 Mg/0.5 Ml Inj, 7.5 MG SC QWEEKLY for 28 Days, #2 10/18/23 Sitagliptin Phosphate (Januvia) 100 Mg Tab, 1 TAB PO DAILY 10/18/23 Clopidogrel Bisulfate (CLOPIDOGREL) 75 Mg Tab, 1 TAB PO DAILY 10/18/23 Furosemide (Furosemide) 40 Mg Tab, 1 TAB PO BID 10/18/23 Atorvastatin Calcium (ATORVASTATIN CALCIUM) 20 Mg Tab, 1 TAB PO DAILY 10/17/23 Cholecalciferol (Vitamin D-3 Super Strengt) 2,000 Unit Tab, 1 TAB PO DAILY 10/17/23 Gabapentin (Gabapentin) 300 Mg Cap, 1 CAP PO Q8HR for NEUROPATHIC PAIN for 30 Days, #90 10/17/23 Aspirin (Aspirin Low Dose) 81 Mg Tab, 1 TAB PO DAILY 10/17/23 Balsalazide Disodium (Balsalazide Disodium) 750 Mg Cap, 3 CAP PO BID for 30 Days, #180 10/17/23 Current Medications Current Medications Medications (Trade) Dose Ordered Sig/Damon Route PRN Reason Start Time Stop Time Status Last Admin Enoxaparin Sodium (Lovenox) 40 mg DAILY SC 07/29/24 10:00 07/29/24 10:40 Aspirin (Ecotrin Enteric Coated Tablet) 81 mg DAILY PO 07/29/24 10:00 07/29/24 10:39 Atorvastatin Calcium (Lipitor) 20 mg DAILY PO 07/29/24 10:00 07/29/24 10:46 DC 07/29/24 10:38 Clopidogrel Bisulfate (Plavix) 75 mg DAILY PO 07/29/24 10:00 07/29/24 10:39 Docusate Sodium (Colace Capsule) 100 mg BID PO 07/28/24 22:00 07/29/24 12:11 DC 07/28/24 22:03 Furosemide (Lasix Tablet) 40 mg BIDD PO 07/29/24 06:00 07/29/24 18:00 Gabapentin (Neurontin Capsule) 300 mg Q8HR PO 07/28/24 22:00 07/29/24 14:13 Lidocaine (Lidoderm 5% Topical Patch) 1 patch DAILY TOP 07/29/24 10:00 07/29/24 11:08 Paroxetine HCl (Paxil Tablet) 20 mg DAILY PO 07/29/24 10:00 07/29/24 10:38 Polyethylene Glycol (Miralax 17GM Powder) 17 gm DAILY PO 07/29/24 10:00 07/29/24 12:11 DC Diltiazem HCl (Cardizem Immediate Release Tab) 30 mg Q6HR PO 07/29/24 12:00 07/29/24 18:00 Ranolazine (Ranexa ER) 500 mg BID PO 07/29/24 10:00 07/29/24 10:38 Isosorbide Mononitrate (Imdur Er Tablet) 30 mg DAILY PO 07/29/24 10:00 07/29/24 10:39 Atorvastatin Calcium (Lipitor) 40 mg HS PO 07/30/24 22:00 Acetaminophen/ Hydrocodone Bitart ([place] 5/325MG Tab) 2 tab Q4HP PRN PO MODERATE PAIN (4-6 PAIN SCALE) 07/29/24 11:00 Hydromorphone HCl (Dilaudid Injection) 0.5 mg Q4HP PRN IV SEVERE PAIN (7-10 PAIN SCALE) 07/29/24 11:15 07/29/24 16:48 Patient Own Medication 1 tab DAILY PO 07/30/24 10:00 Baclofen (Liorisal Tablet) 5 mg Q8HP PRN PO FOR MUSCLE SPASM 07/29/24 11:00 Review of Systems Constitutional: denies chills, denies fever, denies malaise Eyes: denies eye pain, denies vision change ENT: denies ear pain, denies headache, denies nasal congestion, denies painful swallowing, denies voice change Cardiovascular: denies chest pain, denies edema, denies orthopnea, denies palpitations, denies paroxysmal nocturnal dyspnea Respiratory: denies cough, denies shortness of breath Gastrointestinal: denies constipation, denies diarrhea, denies nausea, denies vomiting Genitourinary: denies dysuria, denies frequent urination, denies urethral discharge Musculoskeletal: denies back pain, denies joint pain, denies muscle pain Skin: denies bruising, denies itching, denies rash Neurological: denies focal weakness, denies headache, denies sensory changes Psychiatric: denies anxiety, denies depression Endocrine: denies polydipsia, denies polyuria Hematologic/Lymphatic: denies easy bleeding, denies easy bruising, denies enlarged lymph nodes Allergic/Immunologic: denies allergy, denies hives Vital Signs Vital Signs Date Time Temp Pulse Resp B/P (MAP) Pulse Ox O2 Delivery O2 Flow Rate FiO2 07/29/24 19:32 98 Room Air* 0 21 07/29/24 18:00 83 107/71 07/29/24 17:19 98.2 20 98.2 Physical Exam General Appearance: alert, no distress HEENT: EOMI, PERRLA, normal external inspect of ears, no icterus, no nasal drainage Neck: no carotid bruit, no jugular venous distention (JVD), no lymphadenopathy Chest: normal thorax Respiratory: clear to auscultation, normal air movement Cardiovascular: regular rate and rhythm, no diastolic murmur, no jugular venous distention (JVD), no rub, no systolic murmur Abdominal: soft, no hepatomegaly, no mass, no splenomegaly, no tenderness Genitourinary: grossly normal external Musculoskeletal: no joint tenderness, no swelling Extremities: normal pulses, no calf tenderness, no clubbing, no cyanosis, no edema Skin: no bruising, no jaundice, no rash Neurological: alert, No focal deficit Results Labs Test 07/29/24 17:40 07/29/24 09:13 07/28/24 21:29 07/28/24 14:23 Range/Units Prothrombin Time 10.3 9.3-11.8 sec Prothrombin Time INR 0.97 0.9-1.15 Activated Partial Thromboplast Time 23.2 L 24.5-34.5 SEC D-Dimer, Quantitative 0.87 H 0.0-0.49 mg/L FEU Total Bilirubin 0.5 0.2-1.0 mg/dL Direct Bilirubin 0.1 <0.3 mg/dL Aspartate Amino Transferase (AST) 12 L 13-40 U/L Alanine Aminotransferase (ALT) 10 7-40 U/L Alkaline Phosphatase 113 46-116 U/L Total Protein 7.2 5.7-8.2 g/dL Albumin 4.8 3.2-4.8 g/dL Triglycerides Level 223 H < 150 mg/dL Cholesterol Level 143 < 200 mg/dL LDL Cholesterol 86 < 100 mg/dL HDL Cholesterol 31 L 40-59 mg/dL POC Glucose 177 H 70-106 mg/dl Troponin I High Sensitivity 12 </=34 ng/L Test 07/28/24 13:27 07/28/24 07:18 Range/Units White Blood Count 6.9 4.4-10.8 10^3/uL Red Blood Count 4.19 4.0-5.20 10^6/uL Hemoglobin 12.6 12.2-16.2 g/dL Hematocrit 36.7 36.0-46.0 % Mean Corpuscular Volume 87.7 80.0-100.0 fL Mean Corpuscular Hemoglobin 30.1 28.0-32.0 pg Mean Corpuscular Hemoglobin Concent 34.3 32.0-36.0 g/dL Red Cell Distribution Width 16.9 H 11.8-14.3 % Platelet Count 309 140-450 10^3/uL Mean Platelet Volume 8.0 6.9-10.8 fL Neutrophils (%) (Auto) 57.5 37.0-80.0 % Lymphocytes (%) (Auto) 32.7 10.0-50.0 % Monocytes (%) (Auto) 4.3 0.0-12.0 % Eosinophils (%) (Auto) 4.4 0.0-7.0 % Basophils (%) (Auto) 1.1 0.0-2.0 % Neutrophils # (Auto) 3.9 1.6-8.6 10 ^3/uL Lymphocytes # (Auto) 2.2 0.4-5.4 10 ^3/uL Monocytes # (Auto) 0.3 0-1.3 10 ^3/uL Eosinophils # (Auto) 0.3 0-0.8 10 ^3/uL Basophils # (Auto) 0.1 0-0.2 10 ^3/uL Nucleated Red Blood Cells 0.1 % Sodium Level 140 136-145 mmol/L Potassium Level 3.9 3.5-5.1 mmol/L Chloride Level 106 98-107 mmol/L Carbon Dioxide Level 23 20-31 mmol/L Anion Gap 11 5-15 Blood Urea Nitrogen 17 9-23 mg/dL Creatinine 1.09 H 0.550-1.02 mg/dL Glomerular Filtration Rate Calc 58 >90 mL/min BUN/Creatinine Ratio 15.6 10.0-20.0 Serum Glucose 153 H 74-106 mg/dL Calcium Level 10.2 8.7-10.4 mg/dL Urine Color Light-yellow Yellow Urine Clarity Turbid H Clear Urine pH 5.0 5.0-9.0 Urine Specific [place] 1.011 1.001-1.035 Urine Protein Negative Negative Urine Ketones Negative Negative Urine Blood Negative Negative /uL Urine Nitrite Negative Negative Urine Bilirubin Negative Negative Urine Urobilinogen Normal Negative mg/dL Urine Leukocyte Esterase 2+ Negative /uL Urine RBC 4 0 - 4 /hpf Urine Microscopic WBC 16 H 0-5 /HPF Urine Squamous Epithelial Cells Few <5 /hpf Urine Bacteria Few H None Seen /hpf Urine Glucose Normal Normal mg/dL Plan 1. Unstable angina Monitor, cardiology consult, trend troponin, monitor EKG 2. CAD s/p stent Monitor, restart home meds 3. Hx CVA with right sided deficits Monitor, PT eval 4. HLD Monitor, obtain lipid panel Plan discussed with: Patient, Other TED HUSSEIN NP Jul 28, 2024 17:33
[2024-07-28] MEDS ORDERED: ALBUTEROL SULF HFA 90MCG INH 200DOSE IN PRN (17:45)
[2024-07-28] MEDS ORDERED: ALBUTEROL SULF 2.5 MG/0.5ML(0.5%) NEB SOLN NEB PRN (18:30)
--- NOTE | 2024-07-28 18:40 | ECG ---
[facility] Test Date: 2024-07-28 Test Time: 12:37:07 Pat Name: KAVYA TEJEDA Department: ED Room: 0283T Gender: F Corrections Specialist: JOAQUIN : 1965 Requested By: BRANDT DAMON Order Number: [id number] Reading MD: Humberto Alvarez Measurements Intervals [place] Rate: 79 P: 39 CO: 129 QRS: -40 QRSD: 102 T: -25 QT: 432 QTc: 496 Interpretive Statements Sinus rhythm Left axis deviation Abnormal R-wave progression, early transition Borderline T abnormalities, diffuse leads Borderline prolonged QT interval Electronically Signed On 07-30-2024 13:06:26 PDT by Humberto Alvarez Please click the below link to view image of tracing.
[2024-07-28 19:08] VITALS: BP 176/136; PULSE 78; RESP 18; TEMP 98.6; O2SAT 96
[2024-07-28 21:17] VITALS: PULSE 89; RESP 19; O2SAT 97
[2024-07-28] MEDS: FUROSEMIDE 40 MG TAB PO ONE (21:19)
[2024-07-28] MEDS: DEXTROSE (50%) 50ML SYRG IV ONE (21:37)
[2024-07-28] MEDS: InsuLIN REG 1unit/0.01ml Soln (100units/ml) SC ONE (21:37)
[2024-07-28] MEDS: ACCU-CHEK COMFORT CURVE STRIP VI ONE (21:37)
--- NOTE | 2024-07-28 21:52 | DVHINCON2 ---
Date of service: Jul 28, 2024 Referring Physician Ted Reason for Consultation Rule out stroke History of Present Illness We were not able to locate the patient :07/28/24 59 y.o female with PMHx of [place], CVA x2 left sided deficits, Colitis, DM, HTN, presents to the ED via EMS for a chief complaint of chest pain radiating to her left arm and hand that started 45 minutes ago. Patient was with her daughter when pain presented, states she was near an urgent care and the staff there called 911. Patient denies any nausea, vomiting, abdominal pain, fever, chills, or leg swelling. Patient was seen here on 07/19/24 for similar pain, was seen by hockey player Dr. Churchill and "transferred to [facility] for a repeat ischemic workup and possible PCI versus CABG". Time Seen by MD: 12:36 CBC, 07/28/2024: Unremarkable BUN/CR, 07/28/2024: 17/1.09 HGB A1c, 07/01/2024: 6.9 TG/HDL/LDL/HDL, 07/01/2024: 164/158/102/36 TSH, 07/01/24: 1.91 CT head, 07/01/2024: No acute intracranial abnormality MR head, 11/02/2023: No acute infarct, intracranial hemorrhage, mass effect, or hydrocephalus. Diabetes, dyslipidemia, coronary artery disease, heart attack, congestive heart failure, stroke, kidney stone, liver disorder Cholecystectomy, hernia repair, PTCA Heart disease, cancer Smoker: Non-Smoker Alcohol: Denies ETOH Use Drugs: Denies Drug Use Lives In: Home Family History: FH: breast cancer G8 SISTER FH: cancer FH: liver cancer G8 MOTHER, , Cause: Liver cancer Family history: Alzheimer's disease G8 MOTHER, , Cause: Liver cancer, Onset:Unknown Family history: Cardiovascular disease G8 FATHER, , Cause: CHF (congestive heart failure), Onset:Unknown Family history: Diabetes mellitus G8 BROTHER, Onset:Unknown Thyroid disease 19 CHILD Thyroid disease 19 CHILD Allergies: Coded Allergies: Latex (Verified Allergy, Mild, 06/02/24) INCLUDING TAPE, BROWN AND CLEAR TAPE Procaine (Verified Allergy, Unknown, 03/12/14) Uncoded Allergies: PENICILLIN (Allergy, Unknown, 07/19/24) Home Meds Active Scripts Lidocaine (LIDODERM 5% TOPICAL PATCH) 1 Patch Ph, 1 PATCH TOP DAILY for 30 Days, #30 PATCH 0 Refills Prov:MIAN ROMO RADIO INTERFERENCE TROUBLE SHOOTER 06/02/24 Polyethylene Glycol 3350 (Miralax) 17 Gm Pow, 17 GM PO DAILY for 15 Days, #15 POW Prov:TED HUSSEIN Kim RADIO INTERFERENCE TROUBLE SHOOTER 05/03/24 Albuterol Sulfate (Albuterol Sulfate Hfa) 108 Mcg/Act Aer, 108 MCG IN BID PRN for 10 Days, #1 AER 0 Refills Prov:LILI LUNSFORD DO 12/01/22 Reported Medications Docusate Sodium (Docusate Sodium) 100 Mg Cap, 1 CAP PO BID for 30 Days, #60 07/03/24 Simvastatin (Simvastatin) 20 Mg Tab, 1 TAB PO DAILY for 90 Days, #90 07/03/24 Hydrocodone-Acetaminophen (Hydrocodone Bitartrate/AC 10-325 mg) 1 Tab Tab, 1 TAB PO Q6HR PRN for CHRONIC PAIN for 30 Days, #120 07/03/24 Meloxicam (Meloxicam) 15 Mg Tab, 1 TAB PO DAILY for 30 Days, #30 07/03/24 Potassium Chloride (Potassium Chloride ER) 10 Meq Tab, 1 TAB PO BID for 90 Days, #180 07/03/24 Baclofen (Baclofen) 20 Mg Tab, 1 TAB PO BID for 90 Days, #180 07/03/24 Paroxetine Hydrochloride (Paroxetine Hydrochloride) 20 Mg Tab, 1 TAB PO DAILY for 90 Days, #90 05/01/24 Tirzepatide (Mounjaro) 7.5 Mg/0.5 Ml Inj, 7.5 MG SC QWEEKLY for 28 Days, #2 10/18/23 Sitagliptin Phosphate (Januvia) 100 Mg Tab, 1 TAB PO DAILY 10/18/23 Clopidogrel Bisulfate (CLOPIDOGREL) 75 Mg Tab, 1 TAB PO DAILY 10/18/23 Furosemide (Furosemide) 40 Mg Tab, 1 TAB PO BID 10/18/23 Atorvastatin Calcium (ATORVASTATIN CALCIUM) 20 Mg Tab, 1 TAB PO DAILY 10/17/23 Cholecalciferol (Vitamin D-3 Super Strengt) 2,000 Unit Tab, 1 TAB PO DAILY 10/17/23 Gabapentin (Gabapentin) 300 Mg Cap, 1 CAP PO Q8HR for NEUROPATHIC PAIN for 30 Days, #90 10/17/23 Aspirin (Aspirin Low Dose) 81 Mg Tab, 1 TAB PO DAILY 10/17/23 Balsalazide Disodium (Balsalazide Disodium) 750 Mg Cap, 3 CAP PO BID for 30 Days, #180 10/17/23 Current Medications Current Medications Medications (Trade) Dose Ordered Sig/Damon Route PRN Reason Start Time Stop Time Status Last Admin Acetaminophen/ Hydrocodone Bitart ([place] 5/325MG Tab) 1 tab Q4HP PRN PO MODERATE PAIN (4-6 PAIN SCALE) 07/28/24 17:30 Ondansetron HCl (Zofran) 4 mg Q4HP PRN IV NAUSEA / VOMITING 07/28/24 17:30 Docusate Sodium (Colace Capsule) 100 mg BIDPRN PRN PO FOR CONSTIPATION 07/28/24 17:30 Acetaminophen (Tylenol Tablet) 650 mg Q6HP PRN PO PAIN SCALE 1-3 OR TEMP>100.4 07/28/24 17:30 Enoxaparin Sodium (Lovenox) 40 mg DAILY SC 07/29/24 10:00 Nitroglycerin (Ntrostat Sublingual) 0.4 mg Q5MINP PRN SL FOR CHEST PAIN 07/28/24 17:30 Morphine Sulfate 2 mg Q30M PRN IV FOR CHEST PAIN 07/28/24 17:30 Albuterol (Ventolin Hfa) 108 mcg BID PRN IN sob 07/28/24 17:45 07/28/24 18:25 DC Aspirin (Ecotrin Enteric Coated Tablet) 81 mg DAILY PO 07/29/24 10:00 Atorvastatin Calcium (Lipitor) 20 mg DAILY PO 07/29/24 10:00 Clopidogrel Bisulfate (Plavix) 75 mg DAILY PO 07/29/24 10:00 Docusate Sodium (Colace Capsule) 100 mg BID PO 07/28/24 22:00 Furosemide (Lasix Tablet) 40 mg BIDD PO 07/29/24 06:00 Gabapentin (Neurontin Capsule) 300 mg Q8HR PO 07/28/24 22:00 Lidocaine (Lidoderm 5% Topical Patch) 1 patch DAILY TOP 07/29/24 10:00 Paroxetine HCl (Paxil Tablet) 20 mg DAILY PO 07/29/24 10:00 Polyethylene Glycol (Miralax 17GM Powder) 17 gm DAILY PO 07/29/24 10:00 Albuterol (Ventolin Medneb) 2.5 mg Q8HPRN PRN NEB SHORTNESS OF BREATH 07/28/24 18:30 Vital Signs Vital Signs Date Time Temp Pulse Resp B/P (MAP) Pulse Ox O2 Delivery O2 Flow Rate FiO2 07/28/24 21:17 89 19 97 Room Air* 0 21 07/28/24 21:15 98.9 130/81 (97) 98.9 Labs/Diagnostic Data Labs Test 07/28/24 14:23 07/28/24 13:27 Range/Units Troponin I High Sensitivity 12 </=34 ng/L White Blood Count 6.9 4.4-10.8 10^3/uL Red Blood Count 4.19 4.0-5.20 10^6/uL Hemoglobin 12.6 12.2-16.2 g/dL Hematocrit 36.7 36.0-46.0 % Mean Corpuscular Volume 87.7 80.0-100.0 fL Mean Corpuscular Hemoglobin 30.1 28.0-32.0 pg Mean Corpuscular Hemoglobin Concent 34.3 32.0-36.0 g/dL Red Cell Distribution Width 16.9 H 11.8-14.3 % Platelet Count 309 140-450 10^3/uL Mean Platelet Volume 8.0 6.9-10.8 fL Neutrophils (%) (Auto) 57.5 37.0-80.0 % Lymphocytes (%) (Auto) 32.7 10.0-50.0 % Monocytes (%) (Auto) 4.3 0.0-12.0 % Eosinophils (%) (Auto) 4.4 0.0-7.0 % Basophils (%) (Auto) 1.1 0.0-2.0 % Neutrophils # (Auto) 3.9 1.6-8.6 10 ^3/uL Lymphocytes # (Auto) 2.2 0.4-5.4 10 ^3/uL Monocytes # (Auto) 0.3 0-1.3 10 ^3/uL Eosinophils # (Auto) 0.3 0-0.8 10 ^3/uL Basophils # (Auto) 0.1 0-0.2 10 ^3/uL Nucleated Red Blood Cells 0.1 % Sodium Level 140 136-145 mmol/L Potassium Level 3.9 3.5-5.1 mmol/L Chloride Level 106 98-107 mmol/L Carbon Dioxide Level 23 20-31 mmol/L Anion Gap 11 5-15 Blood Urea Nitrogen 17 9-23 mg/dL Creatinine 1.09 H 0.550-1.02 mg/dL Glomerular Filtration Rate Calc 58 >90 mL/min BUN/Creatinine Ratio 15.6 10.0-20.0 Serum Glucose 153 H 74-106 mg/dL Calcium Level 10.2 8.7-10.4 mg/dL Plan discussed with: Other DARIA MCKEON MD Jul 28, 2024 21:52
[2024-07-28] MEDS: SODIUM CHLORIDE 0.9% 1,000 ML IV ONE (22:01)
[2024-07-28] MEDS: GABAPENTIN 300 MG CAP PO SCH (22:02)
[2024-07-28] MEDS: DOCUSATE SOD 100 MG CAP PO SCH (22:03)
[2024-07-28] MEDS: HYDROcodone-ACET 5/325MG TAB PO PRN (22:03)
[2024-07-29] VITALS (8 sets, daily range): BP systolic 93–107; BP diastolic 53–71; PULSE 71–83; RESP 20; TEMP 98–98.2; O2SAT 95–99
[2024-07-29] MEDS: ONDANSETRON HCL 4 MG/2 ML VIAL IV PRN (02:58)
[2024-07-29] MEDS: MORPHINE SULFATE INJ 2 MG/ml SYRG IV PRN (02:59)
[2024-07-29] MEDS: FUROSEMIDE 40 MG TAB PO SCH (05:31)
[2024-07-29 08:41] LABS: Urine Bacteria FEW /hpf (None Seen); Urine Blood Negative /uL (Negative); Urine Clarity Turbid (Clear); Urine Color Light-Yellow (Yellow); Urine Protein, UAD Negative (Negative); Urine Specific Gravity 1.011 (1.001-1.035); Urine Squamous Epithelial Cell FEW /hpf (<5); Urine Urobilinogen Normal (Negative); Urine WBC 16 /HPF (0-5)
--- NOTE | 2024-07-29 09:25 | DVH ---
EXAMINATION: MRI BRAIN HEAD WO CONTRAST INDICATION: r/o cva COMPARISON: MRI BRAIN HEAD WO CONTRAST on DOS: 11/02/23 TECHNIQUE: Multiplanar, multisequence magnetic resonance imaging of the brain was performed without t he use of intravenous contrast. FINDINGS: There is no restricted diffusion. likely related to minimal chronic microvascular ischemic changes. appropriate. There is no evidence of hemorrhage, mass, mass effect or midline shift. There is no hydr ocephalus or extra-axial fluid collection. The visualized intracranial vasculature demonstrates appro priate flow-voids. The sagittal midline structures appear unremarkable. The craniocervical junction i s within normal limits. The calvarium demonstrates normal marrow signal. The paranasal sinuses and ma stoid air cells are clear. IMPRESSION: 1. There is no acute intracranial process. HS:Y
--- NOTE | 2024-07-29 09:43 | DVHINCON2 ---
Date of service: Jul 29, 2024 History of Present Illness HPI Patient is a 67-year-old female who presented to the hospital for generalized weakness and some chest discomfort. She mentions that she was at her primary care physician when she felt generally weak and had some chest discomfort and was sent to the hospital. Cardiology is involved for cardiac aspects of care. Home Meds Active Scripts Lidocaine (LIDODERM 5% TOPICAL PATCH) 1 Patch Ph, 1 PATCH TOP DAILY for 30 Days, #30 PATCH 0 Refills Prov:MIAN ROMO INTERIOR DESIGN CONSULTANT 06/02/24 Polyethylene Glycol 3350 (Miralax) 17 Gm Pow, 17 GM PO DAILY for 15 Days, #15 POW Prov:TED HUSSEIN INTERIOR DESIGN CONSULTANT 05/03/24 Albuterol Sulfate (Albuterol Sulfate Hfa) 108 Mcg/Act Aer, 108 MCG IN BID PRN for 10 Days, #1 AER 0 Refills Prov:LILI LUNSFORD DO 12/01/22 Reported Medications Docusate Sodium (Docusate Sodium) 100 Mg Cap, 1 CAP PO BID for 30 Days, #60 07/03/24 Simvastatin (Simvastatin) 20 Mg Tab, 1 TAB PO DAILY for 90 Days, #90 07/03/24 Hydrocodone-Acetaminophen (Hydrocodone Bitartrate/AC 10-325 mg) 1 Tab Tab, 1 TAB PO Q6HR PRN for CHRONIC PAIN for 30 Days, #120 07/03/24 Meloxicam (Meloxicam) 15 Mg Tab, 1 TAB PO DAILY for 30 Days, #30 07/03/24 Potassium Chloride (Potassium Chloride ER) 10 Meq Tab, 1 TAB PO BID for 90 Days, #180 07/03/24 Baclofen (Baclofen) 20 Mg Tab, 1 TAB PO BID for 90 Days, #180 07/03/24 Paroxetine Hydrochloride (Paroxetine Hydrochloride) 20 Mg Tab, 1 TAB PO DAILY for 90 Days, #90 05/01/24 Tirzepatide (Mounjaro) 7.5 Mg/0.5 Ml Inj, 7.5 MG SC QWEEKLY for 28 Days, #2 10/18/23 Sitagliptin Phosphate (Januvia) 100 Mg Tab, 1 TAB PO DAILY 10/18/23 Clopidogrel Bisulfate (CLOPIDOGREL) 75 Mg Tab, 1 TAB PO DAILY 10/18/23 Furosemide (Furosemide) 40 Mg Tab, 1 TAB PO BID 10/18/23 Atorvastatin Calcium (ATORVASTATIN CALCIUM) 20 Mg Tab, 1 TAB PO DAILY 10/17/23 Cholecalciferol (Vitamin D-3 Super Strengt) 2,000 Unit Tab, 1 TAB PO DAILY 10/17/23 Gabapentin (Gabapentin) 300 Mg Cap, 1 CAP PO Q8HR for NEUROPATHIC PAIN for 30 Days, #90 10/17/23 Aspirin (Aspirin Low Dose) 81 Mg Tab, 1 TAB PO DAILY 10/17/23 Balsalazide Disodium (Balsalazide Disodium) 750 Mg Cap, 3 CAP PO BID for 30 Days, #180 10/17/23 Past Medical History Others Patient is a 59-year-old female who presented to the hospital for generalized weakness and some chest discomfort. She mentions that she was at her primary care physician when she felt generally weak and had some chest discomfort and was sent to the hospital. Cardiology is involved for cardiac aspects of care. Patient is known to our practice from before. She was actually in the hospital toward the end of June 2024. At that time, she presented with abdominal pain and diarrhea. Does have history of ulcerative colitis/Crohn disease. She also had C diff colitis that point. During that admission, the patient did have some chest pain with abnormal troponin and was found to have non-STEMI. Cardiac catheterization at that point revealed multivessel coronary artery disease and the patient was sent to [place] for the suggested CABG surgery. It seems that in [place] they did not do the CABG and the patient had only 1 stent. Later the patient was discharged home from [place]. In the middle of July (around a week ago) patient came back with chest discomfort to our facility and with diagnosis of unstable angina was sent back to [place]. In [place], the patient again had another stent. I had an opportunity to talk to the consumer loan specialist in [place]. It seems that during the 1st admission to [place], they did put 1 stent in LAD. During the 2nd admission they put another stent in circumflex. It is of note that the patient did have LAD with trifurcation with disease in all of them. Reportedly (as per consumer loan specialist in [place]) LAD stent has resulted in pinching of the diagonals. It is of note that the patient has not been on any antianginal therapy. She only has been kept on aspirin/Plavix. It is of note that the patient still has some abdominal pain and did have diarrhea earlier today. Patient mentions compliance with aspirin/Plavix. Patient Family History: FH: breast cancer G8 SISTER FH: cancer FH: liver cancer G8 MOTHER, , Cause: Liver cancer Family history: Alzheimer's disease G8 MOTHER, , Cause: Liver cancer, Onset:Unknown Family history: Cardiovascular disease G8 FATHER, , Cause: CHF (congestive heart failure), Onset:Unknown Family history: Diabetes mellitus G8 BROTHER, Onset:Unknown Thyroid disease 19 CHILD Thyroid disease 19 CHILD Smoker: No Hx (Negative) Alocohol: None Review of Systems Constitutional: Weakness Cardiovascular: Chest Pain Gastrointestinal: Abdominal Pain, Diarrhea All Other Systems Fourteen point review of system was performed. Relevant findings as per above and as per HPI. Otherwise negative H&P Exam Vital Signs Vital Signs Date Time Temp Pulse Resp B/P (MAP) Pulse Ox O2 Delivery O2 Flow Rate FiO2 07/29/24 07:18 71 Room Air* 0 21 07/29/24 07:17 98.0 18 119/70 (86) 95 98.0 General Appeara: Well developed, Obese Head Exam: Normal inspection Eye Exam: bilateral eye PERRL Pulmonary/Respiratory: Normal inspection, Lungs clear Cardiovascular/Chest: Regular rate, Systolic murmur Peripheral Pulses: 2+ carotid (R), 2+ carotid (L), 2+ femoral (R), 2+ femoral (L), 2+ dorsalis pedis (R), 2+ dorsalis pedis (L), 2+ Radial (R), 2+ Radial (L) Abdominal Exam: Normal bowel sounds, Soft Neuro/Mental St: Alert, Oriented Appearance: Appropriate appearance Eye contact/ Speech: Cooperative Labs/Xrays Labs Test 07/28/24 21:29 07/28/24 14:23 07/28/24 13:27 07/28/24 07:18 Range/Units POC Glucose 177 H 70-106 mg/dl Troponin I High Sensitivity 12 </=34 ng/L White Blood Count 6.9 4.4-10.8 10^3/uL Red Blood Count 4.19 4.0-5.20 10^6/uL Hemoglobin 12.6 12.2-16.2 g/dL Hematocrit 36.7 36.0-46.0 % Mean Corpuscular Volume 87.7 80.0-100.0 fL Mean Corpuscular Hemoglobin 30.1 28.0-32.0 pg Mean Corpuscular Hemoglobin Concent 34.3 32.0-36.0 g/dL Red Cell Distribution Width 16.9 H 11.8-14.3 % Platelet Count 309 140-450 10^3/uL Mean Platelet Volume 8.0 6.9-10.8 fL Neutrophils (%) (Auto) 57.5 37.0-80.0 % Lymphocytes (%) (Auto) 32.7 10.0-50.0 % Monocytes (%) (Auto) 4.3 0.0-12.0 % Eosinophils (%) (Auto) 4.4 0.0-7.0 % Basophils (%) (Auto) 1.1 0.0-2.0 % Neutrophils # (Auto) 3.9 1.6-8.6 10 ^3/uL Lymphocytes # (Auto) 2.2 0.4-5.4 10 ^3/uL Monocytes # (Auto) 0.3 0-1.3 10 ^3/uL Eosinophils # (Auto) 0.3 0-0.8 10 ^3/uL Basophils # (Auto) 0.1 0-0.2 10 ^3/uL Nucleated Red Blood Cells 0.1 % Sodium Level 140 136-145 mmol/L Potassium Level 3.9 3.5-5.1 mmol/L Chloride Level 106 98-107 mmol/L Carbon Dioxide Level 23 20-31 mmol/L Anion Gap 11 5-15 Blood Urea Nitrogen 17 9-23 mg/dL Creatinine 1.09 H 0.550-1.02 mg/dL Glomerular Filtration Rate Calc 58 >90 mL/min BUN/Creatinine Ratio 15.6 10.0-20.0 Serum Glucose 153 H 74-106 mg/dL Calcium Level 10.2 8.7-10.4 mg/dL Urine Color Light-yellow Yellow Urine Clarity Turbid H Clear Urine pH 5.0 5.0-9.0 Urine Specific [place] 1.011 1.001-1.035 Urine Protein Negative Negative Urine Ketones Negative Negative Urine Blood Negative Negative /uL Urine Nitrite Negative Negative Urine Bilirubin Negative Negative Urine Urobilinogen Normal Negative mg/dL Urine Leukocyte Esterase 2+ Negative /uL Urine RBC 4 0 - 4 /hpf Urine Microscopic WBC 16 H 0-5 /HPF Urine Squamous Epithelial Cells Few <5 /hpf Urine Bacteria Few H None Seen /hpf Urine Glucose Normal Normal mg/dL Assessment/Plan Plan Patient is a 59-year-old female who presented to the hospital for generalized weakness and some chest discomfort. She mentions that she was at her primary care physician when she felt generally weak and had some chest discomfort and was sent to the hospital. Cardiology is involved for cardiac aspects of care. Patient is known to our practice from before. She was actually in the hospital toward the end of June 2024. At that time, she presented with abdominal pain and diarrhea. Does have history of ulcerative colitis/Crohn disease. She also had C diff colitis that point. During that admission, the patient did have some chest pain with abnormal troponin and was found to have non-STEMI. Cardiac catheterization at that point revealed multivessel coronary artery disease and the patient was sent to [place] for the suggested CABG surgery. It seems that in [place] they did not do the CABG and the patient had only 1 stent. Later the patient was discharged home from [place]. In the middle of July (around a week ago) patient came back with chest discomfort to our facility and with diagnosis of unstable angina was sent back to [place]. In [place], the patient again had another stent. I had an opportunity to talk to the consumer loan specialist in [place]. It seems that during the 1st admission to [place], they did put 1 stent in LAD. During the 2nd admission they put another stent in circumflex. It is of note that the patient did have LAD with trifurcation with disease in all of them. Reportedly (as per consumer loan specialist in [place]) LAD stent has resulted in pinching of the diagonals. It is of note that the patient has not been on any antianginal therapy. She only has been kept on aspirin/Plavix. It is of note that the patient still has some abdominal pain and did have diarrhea earlier today. Patient mentions compliance with aspirin/Plavix. Not in acute distress. No JVD. Mucosa is pink and dry. No carotid bruit. Lungs are clear to auscultation. Not using accessory muscles of breathing. Cardiac: Regular, no thrills/gallop. Abdomen is soft. Lower abdominal tenderness can be elicited. There is no rebound. Bowel sound is positive There was no gross mass/hepatomegaly. Extremities do not reveal edema. Dorsalis pedis is 2+ bilateral. 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 She has had kidney stones/hydronephrosis/hydroureter before. Uses a walker for ambulation (secondary to old CVA). Patient was found to have multivessel coronary artery disease (left heart catheterization of July 09, 2024). On July 12 2024, the patient was sent to higher level of care ([place]) for possible CABG surgery. Patient ended up having 1 stent in LAD and CABG was not performed. At next presentation, patient was sent back to [place] and had another stent (this time in LCX). Reportedly the patient does have pinching of diagonals. Echocardiogram of December 16, 2022 (performed in [facility]) revealed ejection fraction of 60%, mild TR and right ventricular systolic pressure of 27 mm Hg. Echocardiogram of October 18, 2023 reported ejection fraction 55-60%, mild MR/TR and right ventricular systolic pressure of 25 mm Echocardiogram of May 05, 2024 revealed ejection fraction of 50-55%, normal diastolic, trace MR/TR and right ventricular systolic pressure of 28 mm Hg Echocardiogram of July 05, 2024 had revealed ejection fraction of 40%, trace MR/TR and right ventricular systolic pressure of 30 mm Hg Nuclear stress test of January 03, 2022 (performed as outpatient) revealed ejection fraction of 80% and no evidence for ischemia/scar. Left heart catheterization of July 09 2024 had revealed triple-vessel coronary artery disease Creatinine: 1.09 Potassium: 3.9 Troponin (high sensitive): 13 -12 Chest x-ray revealed: EKG reveals sinus rhythm with nonspecific ST-T changes Tele reveals sinus rhythm Patient is a 59-year-old female who presents with chest discomfort and generalized weakness. The patient does have history of inflammatory bowel disease that was acting out few weeks ago. Did have non-STEMI in early July. Was sent to [place] for possible CABG as she was found to have multivessel coronary artery disease. Instead of CABG the patient was given 1 stent (in LAD which resulted in pinching of diagonals). During the next presentation, the patient was sent back to [place] and ended up having another stent, this time in LCX. To continue aspirin/Plavix. Serial high sensitive troponin has been negative. We will start some antianginal therapies. It is of note that the patient does complain of abdominal pain and had diarrhea even today. Chest pain Coronary artery disease Triple-vessel coronary artery disease Status post PCI (drug-eluting stent deployment of LAD and LCX) History of old CVA with left hemiparesis History of Crohn disease/ulcerative colitis Morbid obesity Constipation Hyperlipidemia Status post carotid endarterectomy Diverticular disease, history of Cardiac suggestion for management: Manage in tele Follow-up electrolytes and kidney function tests and correct abnormalities. K eep potassium above 4 and magnesium above 2 Aspirin/Plavix Echocardiogram Imdur, long-actin mg daily Ranolazine: 500 mg p.o. b.i.d. Diltiazem: 30 mg q.6 hours GI consult for diarrhea/abdominal pain Further evaluation and management depends on the above and clinical course Thank you for consultation A total of 75 minutes was spent reviewing the patient record, examining the patient, making a diagnostic and therapeutic plan, discussing this plan with medical personnel, following up on diagnostic studies and following the patient for clinical stability excluding any and all procedures. At least 50% of this time was spent in direct, [id number] contact. Thank you for allowing me to participate in this patient's care. Further recommendations will depend on patient's clinical course. Please do not hesitate to contact me if you have any questions or concerns. This medical document was created using electronic medical record system with [employer] computerized dictation system. Although this document has been carefully reviewed, there may still be some phonetic and typographical errors. These areas are purely typographical due to the imperfection of the software programs, and do not reflect any compromise in the patient's medical care Plan discussed with: Patient, Other (nurse) BALTAZAR SOMMERS MD Jul 29, 2024 09:43
--- NOTE | 2024-07-29 09:45 | DVHINCON2 ---
Date of service: Jul 29, 2024 Referring Physician Ted Reason for Consultation Rule out stroke History of Present Illness Ms. Wilde is a 59 years old right-handed female with a history of diabetes, dyslipidemia, coronary artery disease, heart attack, congestive heart failure, stroke, kidney stone, obesity, she came to the hospital on 07/28/2024 with a chief company of chest pain. At this time, she was alert and fully oriented, she provided the following history On 07/28/2024, When she was in her doctor's office for follow up, she she did not feel good, she was general weakness, nausea, and her body was leaning to the right side, she was had chest pain, with radiating to the left arm and hand later One day in 2020, she developed general weakness with a left-sided more affected, the patient was seen in the [facility] and she was said to have a stroke and drug abuse, the patient was left AMA and went to the [facility] directly, where the patient was found to have acute stroke, and right internal carotid artery stenosis and she received endarterectomy. She had a good recovery from the stroke One day in 2022, she developed general weakness, and she was seen in the [facility] where she was said to have stroke Her home medication list include aspirin 81 mg daily, Lipitor 20 mg daily She snores, her sleep non-refreshing, she feels tired all day long, she has problem with insomnia, and her family has noticed signs of sleep apnea and the family member wakes her up in the night because she stopped breathing. She has not had sleep evaluation yet CBC, 07/28/2024: Unremarkable BUN/CR, 07/28/2024: 17/1.09 HGB A1c, 07/01/2024: 6.9 TG/HDL/LDL/HDL, 07/01/2024: 164/158/102/36 TSH, 07/01/24: 1.91 CT head, 07/01/2024: No acute intracranial abnormality MR head, 11/02/2023: No acute infarct, intracranial hemorrhage, mass effect, or hydrocephalus MRI head, 07/29/2024: There is no acute intracranial process. Past Medical History Diabetes, dyslipidemia, coronary artery disease, heart attack, congestive heart failure, stroke, kidney stone, liver disorder, obesity Past Surgical History Cholecystectomy, hernia repair, right carotid artery endarterectomy, PTCA Family History: FH: breast cancer G8 SISTER FH: cancer FH: liver cancer G8 MOTHER, , Cause: Liver cancer Family history: Alzheimer's disease G8 MOTHER, , Cause: Liver cancer, Onset:Unknown Family history: Cardiovascular disease G8 FATHER, , Cause: CHF (congestive heart failure), Onset:Unknown Family history: Diabetes mellitus G8 BROTHER, Onset:Unknown Thyroid disease 19 CHILD Thyroid disease 19 CHILD Family History Heart disease, diabetes, thyroid disorder, cancer, dementia Social History She was a tobacco smoker, but no history of alcohol or recreational drug abuse Allergies: Coded Allergies: Latex (Verified Allergy, Mild, 06/02/24) INCLUDING TAPE, BROWN AND CLEAR TAPE Procaine (Verified Allergy, Unknown, 03/12/14) Uncoded Allergies: PENICILLIN (Allergy, Unknown, 07/19/24) Home Meds Active Scripts Lidocaine (LIDODERM 5% TOPICAL PATCH) 1 Patch Ph, 1 PATCH TOP DAILY for 30 Days, #30 PATCH 0 Refills Prov:MIAN ROMO BLOCK GREASER 06/02/24 Polyethylene Glycol 3350 (Miralax) 17 Gm Pow, 17 GM PO DAILY for 15 Days, #15 POW Prov:TED HUSSEIN BLOCK GREASER 05/03/24 Albuterol Sulfate (Albuterol Sulfate Hfa) 108 Mcg/Act Aer, 108 MCG IN BID PRN for 10 Days, #1 AER 0 Refills Prov:LILI LUNSFORD DO 12/01/22 Reported Medications Docusate Sodium (Docusate Sodium) 100 Mg Cap, 1 CAP PO BID for 30 Days, #60 07/03/24 Simvastatin (Simvastatin) 20 Mg Tab, 1 TAB PO DAILY for 90 Days, #90 07/03/24 Hydrocodone-Acetaminophen (Hydrocodone Bitartrate/AC 10-325 mg) 1 Tab Tab, 1 TAB PO Q6HR PRN for CHRONIC PAIN for 30 Days, #120 07/03/24 Meloxicam (Meloxicam) 15 Mg Tab, 1 TAB PO DAILY for 30 Days, #30 07/03/24 Potassium Chloride (Potassium Chloride ER) 10 Meq Tab, 1 TAB PO BID for 90 Days, #180 07/03/24 Baclofen (Baclofen) 20 Mg Tab, 1 TAB PO BID for 90 Days, #180 3/27/25 Paroxetine Hydrochloride (Paroxetine Hydrochloride) 20 Mg Tab, 1 TAB PO DAILY for 90 Days, #90 05/01/24 Tirzepatide (Mounjaro) 7.5 Mg/0.5 Ml Inj, 7.5 MG SC QWEEKLY for 28 Days, #2 10/18/23 Sitagliptin Phosphate (Januvia) 100 Mg Tab, 1 TAB PO DAILY 10/18/23 Clopidogrel Bisulfate (CLOPIDOGREL) 75 Mg Tab, 1 TAB PO DAILY 10/18/23 Furosemide (Furosemide) 40 Mg Tab, 1 TAB PO BID 10/18/23 Atorvastatin Calcium (ATORVASTATIN CALCIUM) 20 Mg Tab, 1 TAB PO DAILY 10/17/23 Cholecalciferol (Vitamin D-3 Super Strengt) 2,000 Unit Tab, 1 TAB PO DAILY 10/17/23 Gabapentin (Gabapentin) 300 Mg Cap, 1 CAP PO Q8HR for NEUROPATHIC PAIN for 30 Days, #90 10/17/23 Aspirin (Aspirin Low Dose) 81 Mg Tab, 1 TAB PO DAILY 10/17/23 Balsalazide Disodium (Balsalazide Disodium) 750 Mg Cap, 3 CAP PO BID for 30 Days, #180 10/17/23 Current Medications Current Medications Medications (Trade) Dose Ordered Sig/Damon Route PRN Reason Start Time Stop Time Status Last Admin Acetaminophen/ Hydrocodone Bitart ([place] 5/325MG Tab) 1 tab Q4HP PRN PO MODERATE PAIN (4-6 PAIN SCALE) 07/28/24 17:30 07/29/24 08:14 Ondansetron HCl (Zofran) 4 mg Q4HP PRN IV NAUSEA / VOMITING 07/28/24 17:30 07/29/24 02:58 Docusate Sodium (Colace Capsule) 100 mg BIDPRN PRN PO FOR CONSTIPATION 07/28/24 17:30 Acetaminophen (Tylenol Tablet) 650 mg Q6HP PRN PO PAIN SCALE 1-3 OR TEMP>100.4 07/28/24 17:30 Enoxaparin Sodium (Lovenox) 40 mg DAILY SC 07/29/24 10:00 Nitroglycerin (Ntrostat Sublingual) 0.4 mg Q5MINP PRN SL FOR CHEST PAIN 07/28/24 17:30 Morphine Sulfate 2 mg Q30M PRN IV FOR CHEST PAIN 07/28/24 17:30 07/29/24 02:59 Albuterol (Ventolin Hfa) 108 mcg BID PRN IN sob 07/28/24 17:45 07/28/24 18:25 DC Aspirin (Ecotrin Enteric Coated Tablet) 81 mg DAILY PO 07/29/24 10:00 Atorvastatin Calcium (Lipitor) 20 mg DAILY PO 07/29/24 10:00 Clopidogrel Bisulfate (Plavix) 75 mg DAILY PO 07/29/24 10:00 Docusate Sodium (Colace Capsule) 100 mg BID PO 07/28/24 22:00 07/28/24 22:03 Furosemide (Lasix Tablet) 40 mg BIDD PO 07/29/24 06:00 07/29/24 05:31 Gabapentin (Neurontin Capsule) 300 mg Q8HR PO 07/28/24 22:00 07/29/24 05:31 Lidocaine (Lidoderm 5% Topical Patch) 1 patch DAILY TOP 07/29/24 10:00 Paroxetine HCl (Paxil Tablet) 20 mg DAILY PO 07/29/24 10:00 Polyethylene Glycol (Miralax 17GM Powder) 17 gm DAILY PO 07/29/24 10:00 Albuterol (Ventolin Medneb) 2.5 mg Q8HPRN PRN NEB SHORTNESS OF BREATH 07/28/24 18:30 Diltiazem HCl (Cardizem Immediate Release Tab) 30 mg Q6HR PO 07/29/24 12:00 Ranolazine (Ranexa ER) 500 mg BID PO 07/29/24 10:00 Isosorbide Mononitrate (Imdur Er Tablet) 30 mg DAILY PO 07/29/24 10:00 Review of Systems As above, the other systems are negative Vital Signs Vital Signs Date Time Temp Pulse Resp B/P (MAP) Pulse Ox O2 Delivery O2 Flow Rate FiO2 07/29/24 07:18 71 Room Air* 0 21 07/29/24 07:17 98.0 18 119/70 (86) 95 98.0 Physical Exam GENERAL EXAM: General: the patient is well developed and nourished. No acute distress. HEENT: Normocephalic, neck is supple, no carotid bruits. No mass. RESPIRATORY: Normal respiratory effort with symmetrical lung expansion. Lungs clear to auscultation. CARDIOVASCULAR: Regular rate and rhythm with no murmurs. S1, S2. ABDOMEN: Soft, nontender, normal bowel sound NEUROLOGICAL: MENTAL STATUS: Awake and alert. Oriented to person, place, time and general circumstances. Able to give personal history SPEECH, LANGUAGE, HIGHER CORTICAL FUNCTION: no aphasia or dysathria. CRANIAL NERVES: #2: Intact visual fernandez to confrontation. The optic discs were sharp. #3,4,6: Pupils are equal, round and reactive. EOMs full and conjugate. Mild bilateral gaze evoked nystagmus. #5: Facial sensation intact in all three divisions bilaterally. Mandibular strength intact. #7: Facial muscles symmetrical and strength intact. #8: Hearing grossly normal to voice. #9,10: Uvula and soft palate rise in the midline. Swallow and voice are normal. #11: Trapezius and sternomastoid strength intact bilaterally. #12: Tongue midline. No fasciculations or atrophy. SENSATION: Sensation to touch and pinprick is normal. MOTOR: Normal tone in the upper and lower extremity. Normal muscle bulk. No fasciculations. No abnormal movements or posturing. Muscle strength of the major groups in the upper extremities is 5/5. Muscle strength of the major groups in the lower extremities is 5/5. REFLEXES: Deep tendon reflexes normal and symmetrical. No pathological reflexes. CEREBELLAR/COORDINATION: Finger to nose and heel to ferro are normal bilaterally. GAIT/STATION: Unremarkable Labs/Diagnostic Data Labs Test 07/28/24 21:29 07/28/24 14:23 07/28/24 13:27 07/28/24 07:18 Range/Units POC Glucose 177 H 70-106 mg/dl Troponin I High Sensitivity 12 </=34 ng/L White Blood Count 6.9 4.4-10.8 10^3/uL Red Blood Count 4.19 4.0-5.20 10^6/uL Hemoglobin 12.6 12.2-16.2 g/dL Hematocrit 36.7 36.0-46.0 % Mean Corpuscular Volume 87.7 80.0-100.0 fL Mean Corpuscular Hemoglobin 30.1 28.0-32.0 pg Mean Corpuscular Hemoglobin Concent 34.3 32.0-36.0 g/dL Red Cell Distribution Width 16.9 H 11.8-14.3 % Platelet Count 309 140-450 10^3/uL Mean Platelet Volume 8.0 6.9-10.8 fL Neutrophils (%) (Auto) 57.5 37.0-80.0 % Lymphocytes (%) (Auto) 32.7 10.0-50.0 % Monocytes (%) (Auto) 4.3 0.0-12.0 % Eosinophils (%) (Auto) 4.4 0.0-7.0 % Basophils (%) (Auto) 1.1 0.0-2.0 % Neutrophils # (Auto) 3.9 1.6-8.6 10 ^3/uL Lymphocytes # (Auto) 2.2 0.4-5.4 10 ^3/uL Monocytes # (Auto) 0.3 0-1.3 10 ^3/uL Eosinophils # (Auto) 0.3 0-0.8 10 ^3/uL Basophils # (Auto) 0.1 0-0.2 10 ^3/uL Nucleated Red Blood Cells 0.1 % Sodium Level 140 136-145 mmol/L Potassium Level 3.9 3.5-5.1 mmol/L Chloride Level 106 98-107 mmol/L Carbon Dioxide Level 23 20-31 mmol/L Anion Gap 11 5-15 Blood Urea Nitrogen 17 9-23 mg/dL Creatinine 1.09 H 0.550-1.02 mg/dL Glomerular Filtration Rate Calc 58 >90 mL/min BUN/Creatinine Ratio 15.6 10.0-20.0 Serum Glucose 153 H 74-106 mg/dL Calcium Level 10.2 8.7-10.4 mg/dL Urine Color Light-yellow Yellow Urine Clarity Turbid H Clear Urine pH 5.0 5.0-9.0 Urine Specific [place] 1.011 1.001-1.035 Urine Protein Negative Negative Urine Ketones Negative Negative Urine Blood Negative Negative /uL Urine Nitrite Negative Negative Urine Bilirubin Negative Negative Urine Urobilinogen Normal Negative mg/dL Urine Leukocyte Esterase 2+ Negative /uL Urine RBC 4 0 - 4 /hpf Urine Microscopic WBC 16 H 0-5 /HPF Urine Squamous Epithelial Cells Few <5 /hpf Urine Bacteria Few H None Seen /hpf Urine Glucose Normal Normal mg/dL Assessment General weakness, with unremarkable MR brain scan on 07/29/2024 Reports stroke in 2020 with left-sided weakness, status post right ICA endarterectomy Reported stroke in 2022 with generalized weakness Obesity Sleep-related breathing disorder Plan/Recommendation Monitoring Supportive treatment Telemetry Carotid Doppler Aspirin 81 mg daily Increase the Lipitor 40 mg daily with a goal of LDL 70 APAP in the hospital Sleep hygiene tips discussed Have suddenly precautions discussed Further address sleep-related breathing disorder as outpatient Plan discussed with: Patient DARIA MCKEON MD Jul 29, 2024 09:45
[2024-07-29] MEDS: RANOLAZINE ER 500 MG TAB PO SCH (10:38)
[2024-07-29] MEDS: PARoxetine 20 MG TAB PO SCH (10:38)
[2024-07-29] MEDS: ATORVASTATIN 20 MG TAB PO SCH (10:38)
[2024-07-29] MEDS: ASPirin-EC 81 mg tab PO SCH (10:39)
[2024-07-29] MEDS: POLYETHYLENE GLYCOL 17 GM PWDR PO SCH (10:39)
[2024-07-29] MEDS: CLOPIDOGREL BISULFATE 75 MG TAB PO SCH (10:39)
[2024-07-29] MEDS: ISOSORBIDE MONONITRATE ER 60 MG TAB PO SCH (10:39)
[2024-07-29] MEDS: ENOXAPARIN SOD 40 MG/0.4 ML SYRINGE SC SCH (10:40)
[2024-07-29] MEDS ORDERED: BACLOFEN 10 MG TAB PO PRN (11:00)
[2024-07-29] MEDS: LIDOCAINE 5% TOPICAL PATCH TOP SCH (11:08)
[2024-07-29 11:35] LABS: LDL Cholesterol 86 mg/dL (< 100)
[2024-07-29 11:36] LABS: Cholesterol 143 mg/dL (< 200)
[2024-07-29 11:38] LABS: HDL Cholesterol 31 mg/dL (40-59); Triglycerides 223 mg/dL (< 150)
--- NOTE | 2024-07-29 11:44 | DVH ---
Carotid Duplex Date: 07/29/2024 10:46 AM Clinical History: CVA, syncope Comparison: US CAROTID DUPLX W COLOR DOP on DOS: 11/02/23 Technique: Duplex Doppler evaluation of the extracranial carotid and vertebral arteries including col or Doppler and spectral/pulsed waveform analysis was performed. Findings: RIGHT SIDE: The peak systolic velocities are 65 cm/s in the distal CCA and 105 cm/s in the proximal ICA.The ICA/C CA ratio is less than 2. The external carotid artery is patent with peak systolic velocity of 95 cm/s proximally. There is appropriate antegrade flow in the right vertebral artery. LEFT SIDE: The peak systolic velocities are 83 cm/s in the distal CCA and 71 cm/s in the proximal ICA. The ICA/C CA ratio is less than 1. The external carotid artery is patent with peak systolic velocity of 95 cm/s proximally. There is appropriate antegrade flow in the left vertebral artery. IMPRESSION: No hemodynamically significant stenosis noted in the right carotid system. No hemodynamically significant stenosis noted in the left carotid system. Reference: Radiology 2003; [id number]
[2024-07-29] MEDS: dilTIAZem HCL 60 MG TAB PO SCH (12:40)
[2024-07-29] MEDS: HYDROmorphone HCL 2 MG/ML VL/or syr IV PRN (12:43)
[2024-07-29 12:54] LABS: INR 0.97 (0.9-1.15); Partial Thromboplastin Time 23.2 SEC (24.5-34.5); Prothrombin Time 10.3 sec (9.3-11.8)
[2024-07-29 13:03] LABS: Bilirubin, Direct 0.1 mg/dL (<0.3); Bilirubin, Total 0.5 mg/dL (0.2-1.0); Total Protein 7.2 g/dL (5.7-8.2)
[2024-07-29 13:04] LABS: Albumin 4.8 g/dL (3.2-4.8)
--- NOTE | 2024-07-29 13:13 | DVH ---
Exam: CT CT AB PEL WO CON-NO ORAL OR IV History: coloitis Comparison Study: 07/01/2024 TECHNIQUE: Multidetector CT of the abdomen and pelvis without IV contrast. Axial, coronal and sagitta l multiplanar reformats were obtained from the axial data set by the technologist. Radiation Dose Information: CT Dose: CTDI volume is 12.89 mGy. Dose-length product is 725.97 mGy*cm FINDINGS: The lung bases are clear. Partially visualized heart is normal in size. Heavy atherosclerotic calcif ication of the coronary artery. Liver, spleen, pancreas and adrenal glands are unremarkable. The gallbladder is not definitely visua lized and may be contracted. Punctate nonobstructing right renal lower pole calculus with additional punctate bilateral renal chelsey ical calculi. Mild left renal scarring. No hydro nephrosis bilaterally. Ureters and urinary bladder u nremarkable. Partially calcified uterine fibroid measuring up to 3.2 cm. Stomach is unremarkable. Small bowel loops unremarkable. Appendix is unremarkable. Small to moderate amount of fecal material within the colon. Colonic diverticulosis without diverticulitis. No signifi cant wall thickening of the colon adjacent inflammatory reaction. No evidence of intraperitoneal free air or free fluid. No evidence of aortic aneurysm. Mild atherosclerotic calcification of the aorta and bilateral iliacs . No significant lymphadenopathy. Calcified granulomas of the bilateral gluteal regions. Interval development of soft tissue densities over the ventral mid and lower abdominal subcutaneous fat largest over the left lower abdominal quadr ant measuring up to 3.4 x 7.7 x 3.8 cm . The 2nd largest measures up to 1.8 x 2.6 x 1.6 cm of the lef t ventral mid abdominal subcutaneous fat and the smallest over the right mid abdominal subcutaneous f at abutting the skin measuring up to 0.6 cm. There is short linear tract of subcutaneous air over the left ventral mid abdominal subcutaneous fat. IMPRESSION: No evidence of acute abdominopelvic abnormalities. No evidence of colitis. Small to moderate amount of fecal material within the colon. Bilateral nonobstructing renal calculi. Fibroid uterus. Interval development of soft tissue densities over the ventral mid and lower abdominal subcutaneous f at largest over the left lower abdominal quadrant measuring up to 3.4 x 7.7 x 3.8 cm. Recommend clin ical correlation for possible subcutaneous hematomas. There is short linear tract of subcutaneous air over the left ventral mid abdominal subcutaneous fat.
--- NOTE | 2024-07-29 13:52 | DVHCONRES ---
Date Seen: Jul 29, 2024 Resident Creating Document: UMER STEVENSON RESIDENT Reason for Consultation Diarrhea, history of colitis History of Present Illness KAVYA TEJEDA is a 59 y.o female with PMHx of NV, CVA x2 left sided deficits, Colitis, DM, HTN, presents to the ED via EMS for a chief complaint of chest pain radiating to her left arm and hand that started 45 minutes ago. Patient was with her daughter when pain presented, states she was near an urgent care and the staff there called 911. Patient denies any nausea, vomiting, abdominal pain, fev er, chills, or leg swelling. . . patient reported she has been having diarrhea for 1 day which is yellowish not associated with a blood. GI was consulted for diarrhea and history of colitis. patient reported multiple hospitalizations recently but denies antibiotic use. Patient denies recent change in food habits, sick contacts PMH: Type 2 DM, CAD, CVA x2, HLD, carotid artery disease, status post carotid endarterectomy, nephrolithiasis, Crohn's disease, ulcerative colitis, HTN, CHF, diverticulosis, cervical cancer /colon cancer PSH: Cholecystectomy, hernia repair, PTCA, uterine prolapse surgery/colectomy Family History: FH: breast cancer G8 SISTER FH: cancer FH: liver cancer G8 MOTHER, , Cause: Liver cancer Family history: Alzheimer's disease G8 MOTHER, , Cause: Liver cancer, Onset:Unknown Family history: Cardiovascular disease G8 FATHER, , Cause: CHF (congestive heart failure), Onset:Unknown Family history: Diabetes mellitus G8 BROTHER, Onset:Unknown Thyroid disease 19 CHILD Thyroid disease 19 CHILD Allergies: Coded Allergies: Latex (Verified Allergy, Mild, 06/02/24) INCLUDING TAPE, BROWN AND CLEAR TAPE Procaine (Verified Allergy, Unknown, 03/12/14) Uncoded Allergies: PENICILLIN (Allergy, Unknown, 07/19/24) Home Meds Active Scripts Lidocaine (LIDODERM 5% TOPICAL PATCH) 1 Patch Ph, 1 PATCH TOP DAILY for 30 Days, #30 PATCH 0 Refills Prov:MIAN ROMO BREAKFAST COOK 06/02/24 Polyethylene Glycol 3350 (Miralax) 17 Gm Pow, 17 GM PO DAILY for 15 Days, #15 POW Prov:TED HUSSEIN BREAKFAST COOK 05/03/24 Albuterol Sulfate (Albuterol Sulfate Hfa) 108 Mcg/Act Aer, 108 MCG IN BID PRN for 10 Days, #1 AER 0 Refills Prov:LILI LUNSFORD DO 12/01/22 Reported Medications Docusate Sodium (Docusate Sodium) 100 Mg Cap, 1 CAP PO BID for 30 Days, #60 07/03/24 Simvastatin (Simvastatin) 20 Mg Tab, 1 TAB PO DAILY for 90 Days, #90 07/03/24 Hydrocodone-Acetaminophen (Hydrocodone Bitartrate/AC 10-325 mg) 1 Tab Tab, 1 TAB PO Q6HR PRN for CHRONIC PAIN for 30 Days, #120 07/03/24 Meloxicam (Meloxicam) 15 Mg Tab, 1 TAB PO DAILY for 30 Days, #30 07/03/24 Potassium Chloride (Potassium Chloride ER) 10 Meq Tab, 1 TAB PO BID for 90 Days, #180 07/03/24 Baclofen (Baclofen) 20 Mg Tab, 1 TAB PO BID for 90 Days, #180 07/03/24 Paroxetine Hydrochloride (Paroxetine Hydrochloride) 20 Mg Tab, 1 TAB PO DAILY for 90 Days, #90 05/01/24 Tirzepatide (Mounjaro) 7.5 Mg/0.5 Ml Inj, 7.5 MG SC QWEEKLY for 28 Days, #2 10/18/23 Sitagliptin Phosphate (Januvia) 100 Mg Tab, 1 TAB PO DAILY 10/18/23 Clopidogrel Bisulfate (CLOPIDOGREL) 75 Mg Tab, 1 TAB PO DAILY 10/18/23 Furosemide (Furosemide) 40 Mg Tab, 1 TAB PO BID 10/18/23 Atorvastatin Calcium (ATORVASTATIN CALCIUM) 20 Mg Tab, 1 TAB PO DAILY 10/17/23 Cholecalciferol (Vitamin D-3 Super Strengt) 2,000 Unit Tab, 1 TAB PO DAILY 10/17/23 Gabapentin (Gabapentin) 300 Mg Cap, 1 CAP PO Q8HR for NEUROPATHIC PAIN for 30 Days, #90 10/17/23 Aspirin (Aspirin Low Dose) 81 Mg Tab, 1 TAB PO DAILY 10/17/23 Balsalazide Disodium (Balsalazide Disodium) 750 Mg Cap, 3 CAP PO BID for 30 Days, #180 10/17/23 Current Medications Current Medications Medications (Trade) Dose Ordered Sig/Damon Route PRN Reason Start Time Stop Time Status Last Admin Acetaminophen/ Hydrocodone Bitart ([place] 5/325MG Tab) 1 tab Q4HP PRN PO MODERATE PAIN (4-6 PAIN SCALE) 07/28/24 17:30 07/29/24 10:58 DC 07/29/24 08:14 Ondansetron HCl (Zofran) 4 mg Q4HP PRN IV NAUSEA / VOMITING 07/28/24 17:30 07/29/24 12:40 Docusate Sodium (Colace Capsule) 100 mg BIDPRN PRN PO FOR CONSTIPATION 07/28/24 17:30 07/29/24 12:11 DC Acetaminophen (Tylenol Tablet) 650 mg Q6HP PRN PO PAIN SCALE 1-3 OR TEMP>100.4 07/28/24 17:30 Enoxaparin Sodium (Lovenox) 40 mg DAILY SC 07/29/24 10:00 07/29/24 10:40 Nitroglycerin (Ntrostat Sublingual) 0.4 mg Q5MINP PRN SL FOR CHEST PAIN 07/28/24 17:30 Morphine Sulfate 2 mg Q30M PRN IV FOR CHEST PAIN 07/28/24 17:30 07/29/24 02:59 Albuterol (Ventolin Hfa) 108 mcg BID PRN IN sob 07/28/24 17:45 07/28/24 18:25 DC Aspirin (Ecotrin Enteric Coated Tablet) 81 mg DAILY PO 07/29/24 10:00 07/29/24 10:39 Atorvastatin Calcium (Lipitor) 20 mg DAILY PO 07/29/24 10:00 07/29/24 10:46 DC 07/29/24 10:38 Clopidogrel Bisulfate (Plavix) 75 mg DAILY PO 07/29/24 10:00 07/29/24 10:39 Docusate Sodium (Colace Capsule) 100 mg BID PO 07/28/24 22:00 07/29/24 12:11 DC 07/28/24 22:03 Furosemide (Lasix Tablet) 40 mg BIDD PO 07/29/24 06:00 07/29/24 05:31 Gabapentin (Neurontin Capsule) 300 mg Q8HR PO 07/28/24 22:00 07/29/24 05:31 Lidocaine (Lidoderm 5% Topical Patch) 1 patch DAILY TOP 07/29/24 10:00 07/29/24 11:08 Paroxetine HCl (Paxil Tablet) 20 mg DAILY PO 07/29/24 10:00 07/29/24 10:38 Polyethylene Glycol (Miralax 17GM Powder) 17 gm DAILY PO 07/29/24 10:00 07/29/24 12:11 DC Albuterol (Ventolin Medneb) 2.5 mg Q8HPRN PRN NEB SHORTNESS OF BREATH 07/28/24 18:30 Diltiazem HCl (Cardizem Immediate Release Tab) 30 mg Q6HR PO 07/29/24 12:00 07/29/24 12:40 Ranolazine (Ranexa ER) 500 mg BID PO 07/29/24 10:00 07/29/24 10:38 Isosorbide Mononitrate (Imdur Er Tablet) 30 mg DAILY PO 07/29/24 10:00 07/29/24 10:39 Atorvastatin Calcium (Lipitor) 40 mg HS PO 07/30/24 22:00 Acetaminophen/ Hydrocodone Bitart ([place] 5/325MG Tab) 2 tab Q4HP PRN PO MODERATE PAIN (4-6 PAIN SCALE) 07/29/24 11:00 Hydromorphone HCl (Dilaudid Injection) 0.5 mg Q4HP PRN IV SEVERE PAIN (7-10 PAIN SCALE) 07/29/24 11:15 07/29/24 12:43 Patient Own Medication 1 tab DAILY PO 07/30/24 10:00 Baclofen (Liorisal Tablet) 5 mg Q8HP PRN PO FOR MUSCLE SPASM 07/29/24 11:00 Review of Systems Patient seen and examined at the bedside. Patient currently reporting diarrhea, had 3 episodes since moaning which is yellowish, no gross blood seen. Vital Signs Vital Signs Date Time Temp Pulse Resp B/P (MAP) Pulse Ox O2 Delivery O2 Flow Rate FiO2 07/29/24 12:43 97 16 143/70 07/29/24 12:04 98.4 95 98.4 07/29/24 07:18 Room Air* 0 21 Physical Exam Pt is lying on bed General Appearance: Alert, Oriented X3, Cooperative, Not in acute distress HEENT: Atraumatic, Mucous membranes moist/pink Respiratory: Clear to auscultation, Normal air movement, No added sounds Cardiovascular: Regular rate, Normal S1, Normal S2, No murmurs Abdominal: lower abdominal tenderness, hyperactive bowel sounds, mildly distended Extremities: No edema, Normal pulses, No tenderness/swelling Skin: No Significant rash, except past surgical scars Neuro: Normal speech, sensorimotor deficits none Psych/Mental Status: Mental status NL, Mood NL Nurse was there as mikelne during examination Labs/Diagnostic Data Labs Test 07/29/24 09:13 07/28/24 21:29 07/28/24 14:23 07/28/24 13:27 Range/Units Prothrombin Time 10.3 9.3-11.8 sec Prothrombin Time INR 0.97 0.9-1.15 Activated Partial Thromboplast Time 23.2 L 24.5-34.5 SEC D-Dimer, Quantitative 0.87 H 0.0-0.49 mg/L FEU Total Bilirubin 0.5 0.2-1.0 mg/dL Direct Bilirubin 0.1 <0.3 mg/dL Aspartate Amino Transferase (AST) 12 L 13-40 U/L Alanine Aminotransferase (ALT) 10 7-40 U/L Alkaline Phosphatase 113 46-116 U/L Total Protein 7.2 5.7-8.2 g/dL Albumin 4.8 3.2-4.8 g/dL Triglycerides Level 223 H < 150 mg/dL Cholesterol Level 143 < 200 mg/dL LDL Cholesterol 86 < 100 mg/dL HDL Cholesterol 31 L 40-59 mg/dL POC Glucose 177 H 70-106 mg/dl Troponin I High Sensitivity 12 </=34 ng/L White Blood Count 6.9 4.4-10.8 10^3/uL Red Blood Count 4.19 4.0-5.20 10^6/uL Hemoglobin 12.6 12.2-16.2 g/dL Hematocrit 36.7 36.0-46.0 % Mean Corpuscular Volume 87.7 80.0-100.0 fL Mean Corpuscular Hemoglobin 30.1 28.0-32.0 pg Mean Corpuscular Hemoglobin Concent 34.3 32.0-36.0 g/dL Red Cell Distribution Width 16.9 H 11.8-14.3 % Platelet Count 309 140-450 10^3/uL Mean Platelet Volume 8.0 6.9-10.8 fL Neutrophils (%) (Auto) 57.5 37.0-80.0 % Lymphocytes (%) (Auto) 32.7 10.0-50.0 % Monocytes (%) (Auto) 4.3 0.0-12.0 % Eosinophils (%) (Auto) 4.4 0.0-7.0 % Basophils (%) (Auto) 1.1 0.0-2.0 % Neutrophils # (Auto) 3.9 1.6-8.6 10 ^3/uL Lymphocytes # (Auto) 2.2 0.4-5.4 10 ^3/uL Monocytes # (Auto) 0.3 0-1.3 10 ^3/uL Eosinophils # (Auto) 0.3 0-0.8 10 ^3/uL Basophils # (Auto) 0.1 0-0.2 10 ^3/uL Nucleated Red Blood Cells 0.1 % Sodium Level 140 136-145 mmol/L Potassium Level 3.9 3.5-5.1 mmol/L Chloride Level 106 98-107 mmol/L Carbon Dioxide Level 23 20-31 mmol/L Anion Gap 11 5-15 Blood Urea Nitrogen 17 9-23 mg/dL Creatinine 1.09 H 0.550-1.02 mg/dL Glomerular Filtration Rate Calc 58 >90 mL/min BUN/Creatinine Ratio 15.6 10.0-20.0 Serum Glucose 153 H 74-106 mg/dL Calcium Level 10.2 8.7-10.4 mg/dL Test 07/28/24 07:18 Range/Units Urine Color Light-yellow Yellow Urine Clarity Turbid H Clear Urine pH 5.0 5.0-9.0 Urine Specific [place] 1.011 1.001-1.035 Urine Protein Negative Negative Urine Ketones Negative Negative Urine Blood Negative Negative /uL Urine Nitrite Negative Negative Urine Bilirubin Negative Negative Urine Urobilinogen Normal Negative mg/dL Urine Leukocyte Esterase 2+ Negative /uL Urine RBC 4 0 - 4 /hpf Urine Microscopic WBC 16 H 0-5 /HPF Urine Squamous Epithelial Cells Few <5 /hpf Urine Bacteria Few H None Seen /hpf Urine Glucose Normal Normal mg/dL Assessment History of Crohn disease/ulcerative colitis Intractable abdominal pain Diarrhea: Constipation Obesity Colonic diverticulosis without diverticulitis CAD status post PCI Old CVA HLD Type 2 DM Plan/Recommendation - stool studies and stool culture - C diff toxin essay - DC stool softeners and laxatives for now - CT abdominal pelvis showed no evidence of acute abdominopelvic abnormalities, no evidence of colitis but small to moderate volume of fecal material within colon. - rest of the management as per primary team - we will recommend conservative treatment Thank you so much for the opportunity to consult on your patient. GI team will follow the patient Case an action plan discussed with Dr. Maral Clemente. Complex care planning needed total 49 minutes of detailed discussion. Plan discussed with: Patient KAE STEVENSONMARCO RESIDENT Jul 29, 2024 13:52
--- NOTE | 2024-07-29 19:54 | DVHPN2 ---
Progress Note - Dictate Date Seen: Jul 29, 2024 Medical Necessity Reason Pt with a Central, PICC or Fol: No vital signs Vital Sign Date Time Temp Pulse Resp B/P (MAP) Pulse Ox O2 Delivery O2 Flow Rate FiO2 07/29/24 19:32 98 Room Air* 0 21 07/29/24 18:00 83 107/71 07/29/24 17:19 98.2 20 98.2 medications Current Medications Medications Dose Ordered Sig/Damon Route Start Time Stop Time Status Last Admin Dose Admin Ondansetron HCl 4 mg Q4HP PRN IV 07/28/24 17:30 07/29/24 12:40 4 MG Acetaminophen 650 mg Q6HP PRN PO 07/28/24 17:30 Enoxaparin Sodium 40 mg DAILY SC 07/29/24 10:00 07/29/24 10:40 40 MG Nitroglycerin 0.4 mg Q5MINP PRN SL 07/28/24 17:30 Morphine Sulfate 2 mg Q30M PRN IV 07/28/24 17:30 07/29/24 02:59 2 MG Aspirin 81 mg DAILY PO 07/29/24 10:00 07/29/24 10:39 81 MG Clopidogrel Bisulfate 75 mg DAILY PO 07/29/24 10:00 07/29/24 10:39 75 MG Furosemide 40 mg BIDD PO 07/29/24 06:00 07/29/24 18:00 40 MG Gabapentin 300 mg Q8HR PO 07/28/24 22:00 07/29/24 14:13 300 MG Lidocaine 1 patch DAILY TOP 07/29/24 10:00 07/29/24 11:08 1 PATCH Paroxetine HCl 20 mg DAILY PO 07/29/24 10:00 07/29/24 10:38 20 MG Albuterol 2.5 mg Q8HPRN PRN NEB 07/28/24 18:30 Diltiazem HCl 30 mg Q6HR PO 07/29/24 12:00 07/29/24 18:00 30 MG Ranolazine 500 mg BID PO 07/29/24 10:00 07/29/24 10:38 500 MG Isosorbide Mononitrate 30 mg DAILY PO 07/29/24 10:00 07/29/24 10:39 30 MG Atorvastatin Calcium 40 mg HS PO 07/30/24 22:00 Acetaminophen/ Hydrocodone Bitart 2 tab Q4HP PRN PO 07/29/24 11:00 Hydromorphone HCl 0.5 mg Q4HP PRN IV 07/29/24 11:15 07/29/24 16:48 0.5 MG Patient Own Medication 1 tab DAILY PO 07/30/24 10:00 Baclofen 5 mg Q8HP PRN PO 07/29/24 11:00 objective General Appearance: alert, no distress HEENT: EOMI, PERRLA, normal external inspect of ears, no icterus, no nasal drainage Neck: no carotid bruit, no jugular venous distention (JVD), no lymphadenopathy Chest: normal thorax Respiratory: clear to auscultation, normal air movement Cardiovascular: regular rate and rhythm, no diastolic murmur, no jugular venous distention (JVD), no rub, no systolic murmur Abdominal: soft, no hepatomegaly, no mass, no splenomegaly, no tenderness Genitourinary: grossly normal external Musculoskeletal: no joint tenderness, no swelling Extremities: normal pulses, no calf tenderness, no clubbing, no cyanosis, no edema Skin: no bruising, no jaundice, no rash Neurological: alert, No focal deficit laboratory and microbiology Laboratory Tests 07/28/24 13:27 Test 07/28/24 13:27 Range/Units Serum Glucose 153 H 74-106 mg/dL Problem List 1. Unstable angina Monitor, cardiology consult, trend troponin, monitor EKG 2. CAD s/p stent Monitor, restart home meds 3. Hx CVA with right sided deficits Monitor, PT eval 4. HLD Monitor, obtain lipid panel Assessment/Plan Subjective: Patient is awake and alert. Objective: Patient was admitted for unstable angina. Patient now complains of acute on chronic back pain. Patient is currently on hold in the emergency room and is sitting in a chair in the hallway. Patient has a history of coronary artery disease status post stent. Patient was recently transferred to [facility] for the second time. Patient did states she received her second heart stent. She also states she has been compliant with her medications. Plan: Increase pain medication. Start baclofen as needed for muscle spasms. Cardiology recommendations appreciated. Monitor EKG. Plan discussed with: Patient, Other TED HUSSEIN NP Jul 29, 2024 19:53
[2024-07-29] MEDS: HYDROcodone-ACET 5/325MG TAB PO PRN (21:38)
[2024-07-29] MEDS: ATORVASTATIN 20 MG TAB PO ONE (23:08)
[2024-07-30] VITALS (10 sets, daily range): BP systolic 90–98; BP diastolic 43–62; PULSE 65–80; RESP 17–19; TEMP 36.7; O2SAT 91–99
--- NOTE | 2024-07-30 06:47 | DVHPN2 ---
Progress Note - Dictate Date Seen: Jul 30, 2024 Medical Necessity Reason Pt with a Central, PICC or Fol: No vital signs Vital Sign Date Time Temp Pulse Resp B/P (MAP) Pulse Ox O2 Delivery O2 Flow Rate FiO2 07/30/24 06:24 99 Room Air* 0 21 07/30/24 05:50 98.4 69 18 95/47 (63) 98.4 Total Intake and Output 07/29/24 07/29/24 07/30/24 14:59 22:59 06:59 Intake Total 400 ml Balance 400 ml medications Current Medications Medications Dose Ordered Sig/Damon Route Start Time Stop Time Status Last Admin Dose Admin Ondansetron HCl 4 mg Q4HP PRN IV 07/28/24 17:30 07/29/24 12:40 4 MG Acetaminophen 650 mg Q6HP PRN PO 07/28/24 17:30 Enoxaparin Sodium 40 mg DAILY SC 07/29/24 10:00 07/29/24 10:40 40 MG Nitroglycerin 0.4 mg Q5MINP PRN SL 07/28/24 17:30 Morphine Sulfate 2 mg Q30M PRN IV 07/28/24 17:30 07/29/24 02:59 2 MG Aspirin 81 mg DAILY PO 07/29/24 10:00 07/29/24 10:39 81 MG Clopidogrel Bisulfate 75 mg DAILY PO 07/29/24 10:00 07/29/24 10:39 75 MG Furosemide 40 mg BIDD PO 07/29/24 06:00 07/29/24 18:00 40 MG Gabapentin 300 mg Q8HR PO 07/28/24 22:00 07/29/24 21:24 300 MG Lidocaine 1 patch DAILY TOP 07/29/24 10:00 07/29/24 11:08 1 PATCH Paroxetine HCl 20 mg DAILY PO 07/29/24 10:00 07/29/24 10:38 20 MG Albuterol 2.5 mg Q8HPRN PRN NEB 07/28/24 18:30 Diltiazem HCl 30 mg Q6HR PO 07/29/24 12:00 07/29/24 18:00 30 MG Ranolazine 500 mg BID PO 07/29/24 10:00 07/29/24 21:24 500 MG Isosorbide Mononitrate 30 mg DAILY PO 07/29/24 10:00 07/29/24 10:39 30 MG Atorvastatin Calcium 40 mg HS PO 07/30/24 22:00 Acetaminophen/ Hydrocodone Bitart 2 tab Q4HP PRN PO 07/29/24 11:00 07/30/24 01:56 2 TAB Hydromorphone HCl 0.5 mg Q4HP PRN IV 07/29/24 11:15 07/29/24 16:48 0.5 MG Patient Own Medication 1 tab DAILY PO 07/30/24 10:00 Baclofen 5 mg Q8HP PRN PO 07/29/24 11:00 laboratory and microbiology Laboratory Tests 07/28/24 13:27 Test 07/28/24 13:27 Range/Units Serum Glucose 153 H 74-106 mg/dL Assessment/Plan Patient is a 59-year-old female who presented to the hospital for generalized weakness and some chest discomfort. She mentions that she was at her primary care physician when she felt generally weak and had some chest discomfort and was sent to the hospital. Cardiology is involved for cardiac aspects of care. Patient is known to our practice from before. She was actually in the hospital toward the end of June 2024. At that time, she presented with abdominal pain and diarrhea. Does have history of ulcerative colitis/Crohn disease. She also had C diff colitis that point. During that admission, the patient did have some chest pain with abnormal troponin and was found to have non-STEMI. Cardiac catheterization at that point revealed multivessel coronary artery disease and the patient was sent to [facility] for the suggested CABG surgery. It seems that in [facility] they did not do the CABG and the patient had only 1 stent. Later the patient was discharged home from [facility]. In the middle of July (around a week ago) patient came back with chest discomfort to our facility and with diagnosis of unstable angina was sent back to [facility]. In [facility], the patient again had another stent. I had an opportunity to talk to the operational trainer in [facility]. It seems that during the 1st admission to [facility], they did put 1 stent in LAD. During the 2nd admission they put another stent in circumflex. It is of note that the patient did have LAD with trifurcation with disease in all of them. Reportedly (as per operational trainer in [facility]) LAD stent has resulted in pinching of the diagonals. It is of note that the patient has not been on any antianginal therapy. She only has been kept on aspirin/Plavix. It is of note that the patient still has some abdominal pain and did have diarrhea earlier today. Patient mentions compliance with aspirin/Plavix. Not in acute distress. No JVD. Mucosa is pink and dry. No carotid bruit. Lungs are clear to auscultation. Not using accessory muscles of breathing. Cardiac: Regular, no thrills/gallop. Abdomen is soft. Lower abdominal tenderness can be elicited. There is no rebound. Bowel sound is positive There was no gross mass/hepatomegaly. Extremities do not reveal edema. Dorsalis pedis is 2+ bilateral. 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 She has had kidney stones/hydronephrosis/hydroureter before. Uses a walker for ambulation (secondary to old CVA). Patient was found to have multivessel coronary artery disease (left heart catheterization of July 09, 2024). On July 12 2024, the patient was sent to higher level of care ([facility]) for possible CABG surgery. Patient ended up having 1 stent in LAD and CABG was not performed. At next presentation, patient was sent back to [facility] and had another stent (this time in LCX). Reportedly the patient does have pinching of diagonals. Echocardiogram of December 16, 2022 (performed in [facility]) revealed ejection fraction of 60%, mild TR and right ventricular systolic pressure of 27 mm Hg. Echocardiogram of October 18, 2023 reported ejection fraction 55-60%, mild MR/TR and right ventricular systolic pressure of 25 mm Echocardiogram of May 05, 2024 revealed ejection fraction of 50-55%, normal diastolic, trace MR/TR and right ventricular systolic pressure of 28 mm Hg Echocardiogram of July 05, 2024 had revealed ejection fraction of 40%, trace MR/TR and right ventricular systolic pressure of 30 mm Hg Nuclear stress test of January 03, 2022 (performed as outpatient) revealed ejection fraction of 80% and no evidence for ischemia/scar. Left heart catheterization of July 09 2024 had revealed triple-vessel coronary artery disease Creatinine: 1.09 Potassium: 3.9 Troponin (high sensitive): 13 -12 D-dimer: 0.87 LDL: 86 Chest x-ray revealed: IMPRESSION: 1. No acute cardiopulmonary pathology Carotid duplex revealed: No hemodynamically significant stenosis noted in the right carotid system. No hemodynamically significant stenosis noted in the left carotid system. Abdomen and pelvic CT revealed: IMPRESSION: No evidence of acute abdominopelvic abnormalities. No evidence of colitis. Small to moderate amount of fecal material within the colon. Bilateral nonobstructing renal calculi. Fibroid uterus. Interval development of soft tissue densities over the ventral mid and lower abdominal subcutaneous fat largest over the left lower abdominal quadrant measuring up to 3.4 x 7.7 x 3.8 cm. Recommend clinical correlation for possible subcutaneous hematomas. There is short linear tract of subcutaneous air over the left ventral mid abdominal subcutaneous fat. Brain MRI revealed: IMPRESSION: 1. There is no acute intracranial process. EKG reveals sinus rhythm with nonspecific ST-T changes Tele reveals sinus rhythm Echocardiogram revealed: Patient is a 59-year-old female who presents with chest discomfort and generalized weakness. The patient does have history of inflammatory bowel disease that was acting out few weeks ago. Did have non-STEMI in early July. Was sent to [facility] for possible CABG as she was found to have multivessel coronary artery disease. Instead of CABG the patient was given 1 stent (in LAD which resulted in pinching of diagonals). During the next presentation, the patient was sent back to [facility] and ended up having another stent, this time in LCX. To continue aspirin/Plavix. Serial high sensitive troponin has been negative. We will start some antianginal therapies. It is of note that the patient does complain of abdominal pain and had diarrhea even today. Chest pain Coronary artery disease Triple-vessel coronary artery disease Status post PCI (drug-eluting stent deployment of LAD and LCX) History of old CVA with left hemiparesis History of Crohn disease/ulcerative colitis Morbid obesity Constipation Hyperlipidemia Status post carotid endarterectomy Diverticular disease, history of Cardiac suggestion for management: Manage in tele Follow-up electrolytes and kidney function tests and correct abnormalities. Keep potassium above 4 and magnesium above 2 Aspirin/Plavix Echocardiogram Imdur, long-actin mg daily Ranolazine: 500 mg p.o. b.i.d. Diltiazem-ER: 120 mg daily Cardiac harrison, can be followed as outpatient A total of 55 minutes was spent reviewing the patient record, examining the patient, making a diagnostic and therapeutic plan, discussing this plan with medical personnel, following up on diagnostic studies and following the patient for clinical stability excluding any and all procedures. At least 50% of this time was spent in direct, [id number] contact. Thank you for allowing me to participate in this patient's care. Further recommendations will depend on patient's clinical course. Please do not hesitate to contact me if you have any questions or concerns. This medical document was created using electronic medical record system with [employer] computerized dictation system. Although this document has been carefully reviewed, there may still be some phonetic and typographical errors. These areas are purely typographical due to the imperfection of the software programs, and do not reflect any compromise in the patient's medical care Plan discussed with: Patient, Other (nurse) BALTAZAR SOMMERS MD Jul 30, 2024 06:47
--- NOTE | 2024-07-30 06:52 | DVHSR ---
APPROVED REPORT EXAM: LIMITED Two-dimensional and M-mode echocardiogram with Doppler and color Doppler. Blood Pressure: 104/59 mmHg INDICATION Chest Pain BRIEF HISTORY CAD RISK FACTORS Height: 5'2", Weight: 165 DIMENSIONS LVDd3.9 (3.8-5.7cm)LA (2D)3.0 (1.9-4.0cm)Aortic Root (2.0-3.7cm) LVDs2.9 (2.5-4.0cm)LA (MM) (1.9-4.0cm)Aortic Cusp Exc (1.5-2.0cm) EF (%) 50.0 (55-70%)Rt. Atrium2.9 (1.9-4.0cm)Asc. Aorta cm IVSd1.0 (0.7-1.1cm)RV (D) (1.8-2.4cm) PWd0.8 (0.7-1.1cm) Mitral Valve MitralMitral Stenosis E/A ratio0.02D MVAcm2 Other Information Quality : Technically LimitedRhythm : Technically limited study due to body habitus, limited repeat to eval ef. Conclusion Left ventricle: Left ventricle was normal-sized. LVEF was 50-55%. There was no gross wall motion a bnormality. Right ventricle was normal-sized with normal systolic function. Both atria were normal-sized. Aortic valve was not well visualized. There was no aortic insufficiency/stenosis. There was trace m itral regurgitation. There was no tricuspid regurgitation. Pulmonary valve was not well visualized. As there was no good tricuspid regurgitation jet, right ventricular systolic pressure could not be es timated. There was no echocardiographic evidence for pulmonary hypertension. IVC was normal-sized w ith normal respiratory variation. There was no pericardial effusion.
--- NOTE | 2024-07-30 08:54 | CONS ---
Pharmacy Clinical Information: From Heart Failure Fallout Report on CQM Application, Anastacia Wilde is a 59 year old female with PMH of CA, CVA, CAD, HFpEF, HLD, DM, ulcerative colitis. Her home medications include metoprolol tartrate. SGLT2i, MRA, and ARNi are recommended for HFpEF according to the 2022 HF guidelines. SGLT2i, MRA, and ARNi not recommended at this time due to hypotension. ELIZABETH FIELDS PHARMACIST Jul 30, 2024 08:54
--- NOTE | 2024-07-30 09:08 | DVHPN2 ---
Progress Note Date Seen: Jul 30, 2024 Resident Creating Document: UMER STEVENSON RESIDENT Medical Necessity Reason Pt with a Central, PICC or Fol: No Subjective Review of Systems Patient seen and examined at the bedside. Patient reported improvement in her diarrhea. per patient no bowel movement today. Patient reports: Feels better Objective vital signs Vital Sign Date Time Temp Pulse Resp B/P (MAP) Pulse Ox O2 Delivery O2 Flow Rate FiO2 07/30/24 08:42 79 18 92/45 (61) 95 07/30/24 08:39 98.1 98.1 07/30/24 06:24 Room Air* 0 21 Total Intake and Output 07/29/24 07/29/24 07/30/24 15:00 23:00 07:00 Intake Total 400 ml Balance 400 ml medications Current Medications Medications Dose Ordered Sig/Damon Route Start Time Stop Time Status Last Admin Dose Admin Ondansetron HCl 4 mg Q4HP PRN IV 07/28/24 17:30 07/29/24 12:40 4 MG Acetaminophen 650 mg Q6HP PRN PO 07/28/24 17:30 Enoxaparin Sodium 40 mg DAILY SC 07/29/24 10:00 07/29/24 10:40 40 MG Nitroglycerin 0.4 mg Q5MINP PRN SL 07/28/24 17:30 Morphine Sulfate 2 mg Q30M PRN IV 07/28/24 17:30 07/29/24 02:59 2 MG Aspirin 81 mg DAILY PO 07/29/24 10:00 07/29/24 10:39 81 MG Clopidogrel Bisulfate 75 mg DAILY PO 07/29/24 10:00 07/29/24 10:39 75 MG Furosemide 40 mg BIDD PO 07/29/24 06:00 07/29/24 18:00 40 MG Gabapentin 300 mg Q8HR PO 07/28/24 22:00 07/30/24 06:44 300 MG Lidocaine 1 patch DAILY TOP 07/29/24 10:00 07/29/24 11:08 1 PATCH Paroxetine HCl 20 mg DAILY PO 07/29/24 10:00 07/29/24 10:38 20 MG Albuterol 2.5 mg Q8HPRN PRN NEB 07/28/24 18:30 Ranolazine 500 mg BID PO 07/29/24 10:00 07/29/24 21:24 500 MG Isosorbide Mononitrate 30 mg DAILY PO 07/29/24 10:00 07/29/24 10:39 30 MG Atorvastatin Calcium 40 mg HS PO 07/30/24 22:00 Acetaminophen/ Hydrocodone Bitart 2 tab Q4HP PRN PO 07/29/24 11:00 07/30/24 06:44 2 TAB Hydromorphone HCl 0.5 mg Q4HP PRN IV 07/29/24 11:15 07/29/24 16:48 0.5 MG Patient Own Medication 1 tab DAILY PO 07/30/24 10:00 Baclofen 5 mg Q8HP PRN PO 07/29/24 11:00 Diltiazem HCl 120 mg DAILY PO 07/30/24 10:00 UNV Examination Pt is lying on bed General Appearance: Alert, Oriented X3, Cooperative, Not in acute distress HEENT: Atraumatic, Mucous membranes moist/pink Respiratory: Clear to auscultation, Normal air movement, No added sounds Cardiovascular: Regular rate, Normal S1, Normal S2, No murmurs Abdominal: lower abdominal tenderness, hyperactive bowel sounds, mildly distended Extremities: No edema, Normal pulses, No tenderness/swelling Skin: No Significant rash, except past surgical scars Neuro: Normal speech, sensorimotor deficits none Psych/Mental Status: Mental status NL, Mood NL Nurse was there as mikelne during examination laboratory and microbiology Laboratory Tests 07/28/24 13:27 Test 07/28/24 13:27 Range/Units Serum Glucose 153 H 74-106 mg/dL Labs and/or images reviewed: Labs reviewed by me, Image(s) reviewed by me Problem List/Assessment/Plan Problem List/Assessment/Plan History of Crohn disease/ulcerative colitis Hepatitis-C reactive Intractable abdominal pain Diarrhea: Constipation Obesity Colonic diverticulosis without diverticulitis CAD status post PCI Old CVA HLD Type 2 DM Plan/Recommendation - stool WBC negative, occult blood is negative and stool culture, pending - C diff toxin essay, pending - DC stool softeners and laxatives for now - CT abdominal pelvis showed no evidence of acute abdominopelvic abnormalities, no evidence of colitis but small to moderate volume of fecal material within colon. - rest of the management as per primary team - we will recommend conservative treatment -stool WBC, stool occult blood is negative, we will follow up on outpatient in 4-6 weeks to follow up with liver, hepatitis-C for further management. Thank you so much for the opportunity to consult on your patient. GI team will follow the patient Case an action plan discussed with Dr. Maral Clemente. Complex care planning needed total 49 minutes of detailed discussion. Plan discussed with: Patient My Orders My Orders Orders - UMER STEVENSON Procedure Category Date Status Time Ct Ab Pel Wo Con-No CT 07/29/24 Resulted Oral Or Iv 12:11 Stool Bacterial TATA 07/29/24 In Process Culture 17:54 Clostridium Difficile TATA 07/29/24 In Process Toxin 17:54 UMER STEVENSON RESIDENT Jul 30, 2024 09:08
[2024-07-30] MEDS: dilTIAZem 120MG ER CAP PO SCH (10:00)
[2024-07-30] MEDS: SITAGLIPTIN PHOSPHATE 100 MG PO SCH (10:00)
--- NOTE | 2024-07-30 10:23 | ECG ---
[facility] Test Date: 2024-07-29 Test Time: 08:39:26 Pat Name: KAVYA TEJEDA Department: ER Room: [facility] A Gender: F Tag Stringer: SAUL : 1965 Requested By: BRANDT DAMON Order Number: [id number] Reading MD: Humberto Alvarez Measurements Intervals [place] Rate: 68 P: 41 [place]: 139 QRS: -44 QRSD: 110 T: 12 QT: 389 QTc: 414 Interpretive Statements Sinus rhythm Left axis deviation Borderline T wave abnormalities Electronically Signed On 07-30-2024 13:14:43 PDT by Humberto Alvarez Please click the below link to view image of tracing.
[2024-07-30 11:02] LABS: Hepatitis B Surface Antibody Negative (Negative)
[2024-07-30 11:04] LABS: Hepatitis C Antibody Reactive (Negative)
[2024-07-30] MEDS ORDERED: RANO500T3 PO (14:11)
[2024-07-30] MEDS ORDERED: ISOS1TAB28 PO (14:11)
[2024-07-30] MEDS ORDERED: BACL10TA PO (14:11)
--- NOTE | 2024-07-30 14:13 | DVHDS2 ---
Discharge Summary Date of Admission Jul 28, 2024 at 17:25 Date of Discharge: Jul 30, 2024 Labs/Diagnostic Data: Laboratory Results Test 07/29/24 17:40 07/29/24 09:13 07/28/24 21:29 07/28/24 14:23 Stool Occult Blood Negative (Negative) Stool Occult Blood Sample #3 (Negative) Stool for White Cells None seen Prothrombin Time 10.3 sec (9.3-11.8) Prothrombin Time INR 0.97 (0.9-1.15) Activated Partial Thromboplast Time 23.2 SEC (24.5-34.5) D-Dimer, Quantitative 0.87 mg/L FEU (0.0-0.49) Total Bilirubin 0.5 mg/dL (0.2-1.0) Direct Bilirubin 0.1 mg/dL (<0.3) Aspartate Amino Transferase (AST) 12 U/L (13-40) Alanine Aminotransferase (ALT) 10 U/L (7-40) Alkaline Phosphatase 113 U/L (46-116) Total Protein 7.2 g/dL (5.7-8.2) Albumin 4.8 g/dL (3.2-4.8) Triglycerides Level 223 mg/dL (< 150) Cholesterol Level 143 mg/dL (< 200) LDL Cholesterol 86 mg/dL (< 100) HDL Cholesterol 31 mg/dL (40-59) Hepatitis B Surface Antibody Negative (Negative) Hepatitis C Antibody Reactive (Negative) POC Glucose 177 mg/dl (70-106) Troponin I High Sensitivity 12 ng/L (</=34) Test 07/28/24 13:27 07/28/24 07:18 White Blood Count 6.9 10^3/uL (4.4-10.8) Red Blood Count 4.19 10^6/uL (4.0-5.20) Hemoglobin 12.6 g/dL (12.2-16.2) Hematocrit 36.7 % (36.0-46.0) Mean Corpuscular Volume 87.7 fL (80.0-100.0) Mean Corpuscular Hemoglobin 30.1 pg (28.0-32.0) Mean Corpuscular Hemoglobin Concent 34.3 g/dL (32.0-36.0) Red Cell Distribution Width 16.9 % (11.8-14.3) Platelet Count 309 10^3/uL (140-450) Mean Platelet Volume 8.0 fL (6.9-10.8) Neutrophils (%) (Auto) 57.5 % (37.0-80.0) Lymphocytes (%) (Auto) 32.7 % (10.0-50.0) Monocytes (%) (Auto) 4.3 % (0.0-12.0) Eosinophils (%) (Auto) 4.4 % (0.0-7.0) Basophils (%) (Auto) 1.1 % (0.0-2.0) Neutrophils # (Auto) 3.9 10 ^3/uL (1.6-8.6) Lymphocytes # (Auto) 2.2 10 ^3/uL (0.4-5.4) Monocytes # (Auto) 0.3 10 ^3/uL (0-1.3) Eosinophils # (Auto) 0.3 10 ^3/uL (0-0.8) Basophils # (Auto) 0.1 10 ^3/uL (0-0.2) Nucleated Red Blood Cells 0.1 % Sodium Level 140 mmol/L (136-145) Potassium Level 3.9 mmol/L (3.5-5.1) Chloride Level 106 mmol/L (98-107) Carbon Dioxide Level 23 mmol/L (20-31) Anion Gap 11 (5-15) Blood Urea Nitrogen 17 mg/dL (9-23) Creatinine 1.09 mg/dL (0.550-1.02) Glomerular Filtration Rate Calc 58 mL/min (>90) BUN/Creatinine Ratio 15.6 (10.0-20.0) Serum Glucose 153 mg/dL (74-106) Calcium Level 10.2 mg/dL (8.7-10.4) Urine Color Light-yellow (Yellow) Urine Clarity Turbid (Clear) Urine pH 5.0 (5.0-9.0) Urine Specific [place] 1.011 (1.001-1.035) Urine Protein Negative (Negative) Urine Ketones Negative (Negative) Urine Blood Negative /uL (Negative) Urine Nitrite Negative (Negative) Urine Bilirubin Negative (Negative) Urine Urobilinogen Normal mg/dL (Negative) Urine Leukocyte Esterase 2+ /uL (Negative) Urine RBC 4 /hpf (0 - 4) Urine Microscopic WBC 16 /HPF (0-5) Urine Squamous Epithelial Cells Few /hpf (<5) Urine Bacteria Few /hpf (None Seen) Urine Glucose Normal mg/dL (Normal) Other Laboratory Tests 07/28/24 13:27 Brief Hx & Hospital Course: 59 y/o female patient with history of AK, HTN, CVA, DM, colitis presents with c/o chest pain that radiates to the left arm. Patient was admitted for unstable angina. Patient recently had one stent placed to her LAD and one stent placed for circumflex at [facility]. Patient was on dual antiplatelet therapy with aspirin and Plavix. Patient was readmitted here for unstable angina. Troponin levels were negative. Patient was seen by cardiology. Patient was started on Ranexa and Imdur. Patient was cleared for discharge and she will follow-up with PCP Dr. Casas in 1 week. There were no complaints or new complaints upon discharge, all questions and concerns were answered. Patient was advised to return to the ER or call 911 if any headaches, dizziness, shortness of breath, chest pain, bleeding, fevers, or worsening of medical condition. Patient/Family was counseled about treatment plan, medications, possible side effects, patientverbalized understanding. All questions were answered to the best of my ability. The patient symptoms improved and they are okay to be DC. Condition at Discharge: Stable Final Diagnosis/Problems List Unstable angina Recent stent x2 [facility] Continue DAPT- stop melixicam due to risk of bleeding CAD s/p stent Hx CVA with right sided deficits HLD new meds: Ranexa and Imdur for angina Discharge Disposition: Home Discharge Instruct/Medications Diet: Cardiac 2g Na,low cholest Activity: No Restrictions, As Tolerated Follow Up/Referral: pcp 1 week Discharge Statement: "Patient was advised to return to the ER or call 911 if any headaches, dizziness, shortness of breath, chest pain, abdominal pain, bleeding, fevers, or worsening of medical condition. Patient was counseled about treatment plan, medications, possible side effects, patientverbalized understanding. All questions were answered to the best of my ability. This discharge took greater then 30 minutes in planning, reviewing documentation, counseling the patient, and discussing with other team members." ASSESSMENT ASSESSMENT Assessment Unstable angina Recent stent x2 [facility] Continue DAPT- stop melixicam due to risk of bleeding new meds: Ranexa and Imdur for angina TED HUSSEIN NP Jul 30, 2024 14:13
[2024-07-30] MEDS ORDERED: ATORVASTATIN 20 MG TAB PO SCH (22:00)
== END 2024-07-30 17:25 | disposition home or self-care (01) | DRG 311 ==
LOC: EDBD 12:40 → ER 12:40 → OVERFLOW 17:25 → TELE-WESTW 07-29 16:08
PROVIDERS: ADMIT Nurse Practitioner; ATTEND Nurse Practitioner
DX: I20.0 Unstable angina (principal); I69.354 Hemiplegia and hemiparesis following cerebral infarction affecting left non-dominant side; E78.5 Hyperlipidemia, unspecified; E11.9 Type 2 diabetes mellitus without complications; K76.9 Liver disease, unspecified; E66.01 Morbid (severe) obesity due to excess calories; M51.369 Other intervertebral disc degeneration, lumbar region without mention of lumbar back pain or lower extremity pain; K59.00 Constipation, unspecified; G47.00 Insomnia, unspecified; K57.30 Diverticulosis of large intestine without perforation or abscess without bleeding; F17.200 Nicotine dependence, unspecified, uncomplicated; N20.0 Calculus of kidney; D25.9 Leiomyoma of uterus, unspecified; I11.0 Hypertensive heart disease with heart failure; I69.320 Aphasia following cerebral infarction; I25.2 Old myocardial infarction; Z88.0 Allergy status to penicillin; Z88.8 Allergy status to other drugs, medicaments and biological substances; Z91.040 Latex allergy status; Z79.899 Other long term (current) drug therapy; Z79.891 Long term (current) use of opiate analgesic; Z79.1 Long term (current) use of non-steroidal anti-inflammatories (NSAID); Z79.82 Long term (current) use of aspirin; Z90.49 Acquired absence of other specified parts of digestive tract; Z82.49 Family history of ischemic heart disease and other diseases of the circulatory system; Z80.3 Family history of malignant neoplasm of breast; Z80.0 Family history of malignant neoplasm of digestive organs; Z82.0 Family history of epilepsy and other diseases of the nervous system; Z83.3 Family history of diabetes mellitus; Z79.84 Long term (current) use of oral hypoglycemic drugs; Z79.02 Long term (current) use of antithrombotics/antiplatelets; Z85.05 Personal history of malignant neoplasm of liver; Z95.5 Presence of coronary angioplasty implant and graft; Z85.038 Personal history of other malignant neoplasm of large intestine; Z85.41 Personal history of malignant neoplasm of cervix uteri; Z68.30 Body mass index [BMI] 30.0-30.9, adult; I50.9 Heart failure, unspecified
CPT/HCPCS: 36415; 70551; 71045; 74176; 80048; 80061; 80076; 81001; 82270; 82962; 84484; 85025; 85048; 85379; 85610; 85730; 86706; 86803; 87045; 87081; 87427; 87493; 93005; 93306; 93886; 99291; 99292; G0378; J2405

== ENCOUNTER 2024-09-30 17:07 | Emergency (ER) | payer MEDICARE, MEDICAID ==
[~2024-09-30] VITALS: Ht 157.5 cm; Wt 81.0 kg
[~2024-09-30 17:07] MED LIST changes: +BACL10TA PO; -BACL20TA PO; +ISOS1TAB28 PO; -MELO15TA29 PO; +RANO500T3 PO
--- NOTE | 2024-09-30 17:20 | ED.PDOC ---
[place]. trauma (HPI) HPI Comments This is a 59 year old female ELIZABETH presenting to the ED with chief complaint of facial injury s/p fall. Patient reports that she was out looking at RVs an hour ago when all of a sudden, she tripped over a bump and fell face first into the ground. Patient relays that she injured his lips and right side of her face keny ng with her left knee having some abrasions. Patient denies any LOC, headache, dizziness, N/V, numbness, weakness, or tingling. Time Seen by MD: 17:17 Primary Care Provider: unknown Reviewed notes: Nurses Notes, Breaster Notes, Medications, Allergies Allergies: Coded Allergies: Latex (Verified Allergy, Mild, 06/02/24) INCLUDING TAPE, BROWN AND CLEAR TAPE Penicillins (Verified Allergy, Unknown, 07/30/24) Procaine (Verified Allergy, Unknown, 03/12/14) Home Meds Active Scripts Hydrocodone-Acetaminophen (Hydrocodone Bitartrate/AC 5-325 mg) 1 Tab Tab, 1 TAB PO Q8HP PRN for 5 Days, #15 TAB Prov:SEAN ZEPEDA MD 09/30/24 Ranolazine (Ranolazine ER) 500 Mg Tab, 500 MG PO BID for 30 Days, #60 TAB Prov:TED HUSSEIN NP 07/30/24 Baclofen (Baclofen) 10 Mg Tab, 5 MG PO Q8HP PRN for 7 Days, #21 TAB Prov:TED HUSSEIN NP 07/30/24 Isosorbide Mononitrate (Isosorbide Mononitrate Er) 30 Mg Tab, 1 TAB PO DAILY, #30 TAB 5 Refills Prov:TED HUSSEIN NP 07/30/24 Lidocaine (LIDODERM 5% TOPICAL PATCH) 1 Patch Ph, 1 PATCH TOP DAILY for 30 Days, #30 PATCH 0 Refills Prov:MIAN ROMO NP 06/02/24 Polyethylene Glycol 3350 (Miralax) 17 Gm Pow, 17 GM PO DAILY for 15 Days, #15 POW Prov:TED HUSSEIN NP 05/03/24 Albuterol Sulfate (Albuterol Sulfate Hfa) 108 Mcg/Act Aer, 108 MCG IN BID PRN for 10 Days, #1 AER 0 Refills Prov:LILI LUNSFORD DO 12/01/22 Reported Medications Docusate Sodium (Docusate Sodium) 100 Mg Cap, 1 CAP PO BID for 30 Days, #60 07/03/24 Simvastatin (Simvastatin) 20 Mg Tab, 1 TAB PO DAILY for 90 Days, #90 07/03/24 Hydrocodone-Acetaminophen (Hydrocodone Bitartrate/AC 10-325 mg) 1 Tab Tab, 1 TAB PO Q6HR PRN for CHRONIC PAIN for 30 Days, #120 07/03/24 Potassium Chloride (Potassium Chloride ER) 10 Meq Tab, 1 TAB PO BID for 90 Days, #180 07/03/24 Paroxetine Hydrochloride (Paroxetine Hydrochloride) 20 Mg Tab, 1 TAB PO DAILY for 90 Days, #90 05/01/24 Tirzepatide (Mounjaro) 7.5 Mg/0.5 Ml Inj, 7.5 MG SC QWEEKLY for 28 Days, #2 10/18/23 Sitagliptin Phosphate (Januvia) 100 Mg Tab, 1 TAB PO DAILY 10/18/23 Clopidogrel Bisulfate (CLOPIDOGREL) 75 Mg Tab, 1 TAB PO DAILY 10/18/23 Furosemide (Furosemide) 40 Mg Tab, 1 TAB PO BID 10/18/23 Atorvastatin Calcium (ATORVASTATIN CALCIUM) 20 Mg Tab, 1 TAB PO DAILY 10/17/23 Cholecalciferol (Vitamin D-3 Super Strengt) 2,000 Unit Tab, 1 TAB PO DAILY 10/17/23 Gabapentin (Gabapentin) 300 Mg Cap, 1 CAP PO Q8HR for NEUROPATHIC PAIN for 30 Days, #90 10/17/23 Aspirin (Aspirin Low Dose) 81 Mg Tab, 1 TAB PO DAILY 10/17/23 Balsalazide Disodium (Balsalazide Disodium) 750 Mg Cap, 3 CAP PO BID for 30 Days, #180 10/17/23 Information Source: Patient, Emergency Med Personnel Mode of Arrival: EMS Severity: Moderate Timing: Hours Duration: Since onset Prehospital treatment: None Location: Face, (L) Knee Mechanism: Fall Past Medical History PAST MEDICAL HISTORY: Angina, CAD, Cancer, CHF, CVA, DM, High Lipids, Kidney Stones, Liver, NE Surgical History: Cholecystectomy, Hernia Repair, PTCA Surgical History (Other): Intestinal repair, carotid surgery OCCUPATIONAL HEALTH PHYSIOTHERAPIST History: No Pertinent OCCUPATIONAL HEALTH PHYSIOTHERAPIST History Family History Family History: Reviewed,noncontributory to illness, Family hx of Cancer, Family hx of heart naveen Social History Smoker: Non-Smoker Alcohol: Denies ETOH Use Drugs: Denies Drug Use Lives In: Home Constitutional: denies: chills, diaphoresis, fatigue, fever, malaise, sweats, weakness, others EENTM: denies: blurred vision, double vision, ear bleeding, ear discharge, ear drainage, ear pain, ear ringing, eye pain, eye redness, hearing loss, mouth pain, mouth swelling, nasal discharge, nose bleeding, nose congestion, nose pain, photophobia, tearing, throat pain, throat swelling, voice changes, others Respiratory: denies: cough, hemoptysis, orthopnea, SOB at rest, shortness of breath, SOB with excertion, stridor, wheezing, others Cardiovascular: denies: chest pain, dizzy spells, diaphoresis, Dyspnea on exertion, edema, irregular heart beat, left arm pain, lightheadedness, palpita tions, PND, syncope, others Gastrointestinal: denies: abdomen distended, abdominal pain, blood streaked john paul wels, constipated, diarrhea, dysphagia, difficulty swallowing, hematemesis, melena, nausea, poor appetite, poor fluid intake, rectal bleeding, rectal pain, vomiting, others Genitourinary: denies: abnormal vagina bleeding, burning, dyspareunia, dysuria, flank pain, frequency, hematuria, incontinence, pain, , vagina discharge, urgency, others Neurological: denies: dizziness, fainting, headache, left sided numbness, left sided weakness, numbness, paresthesia, pre-existing deficit, right sided numbness, right sided weakness, seizure, speech problems, tingling, tremors, weakness, others Musculoskeletal: denies: back pain, gout, joint pain, joint swelling, muscle pain, muscle stiffness, neck pain, others Integumetry: reports: others (Right cheek/facial injury); denies: bruises, change in color, change in hair/nails, dryness, laceration, lesions, lumps, rash, wounds Allergic/Immunocompromised: denies: Difficulty Healing, Frequent Infections, Hives, Itching, others Hematologic/Lymphatic: denies: anemia, blood clots, easy bleeding, easy bruising, swollen glands, others Endocrine: denies: excessive hunger, excessive sweating, excessive thirst, excessive urination, flushing, intolerance to cold, intolerance to heat, unexplained weight gain, unexplained weight loss, others Psychiatric: denies: anxiety, bipolar disorder, depression, hopeless, panic disorder, schizophrenia, sleepless, suicidal, others All Other Systems: Reviewed and Negative Physical Exam General Appearance: Mild Distress HEENT: Normal ENT Inspection, Pharynx Normal, TMs Normal, Other (Abrasions to the right facial area) Neck: Full Range of Motion, Non-Tender, Normal, Normal Inspection Respiratory: Chest Non-Tender, Lungs Clear, No Accessory Muscle Use, No Respiratory Distress, Normal Breath Sounds Cardiovascular: No Edema, No JVD, No Murmur, No Gallop, Normal Peripheral Pulses, Regular Rate/Rhythm Breast Exam: Deferred Gastrointestinal: No Organomegaly, Non Tender, No Pulsatile Mass, Normal Bowel Sounds, Soft Genitalia: Deferred Pelvic: Deferred Rectal: Deferred Extremities: No calf tenderness, Normal capillary refill, Normal inspection, Normal range of motion, Non-tender, No pedal edema Musculoskeletal : Apperance: Normal Neurologic: Alert, distance learning program coordinator II-XII nml as Tested, No Motor Deficits, Normal Affect, Normal Mood, No Sensory Deficits Cerebellar Function: Normal Reflexes: Normal Skin: Dry, Normal Color, Warm Lymphatic: No Adenopathy Was a procedure done? Was a procedure done?: No Differential Diagnosis Multiple Trauma: Fractures, Abrasions, Contusion X-Ray, Labs, Meds, VS Vital Signs Date Time Temp Pulse Resp B/P (MAP) Pulse Ox O2 Delivery O2 Flow Rate FiO2 09/30/24 17:24 98.0 82 16 131/83 (99) [address] Maxillofacial indicates: Right frontal scalp, right periorbital / preseptal hematoma / contusion. Right facial region contusion/hematoma. The patient was given Edna here in the emergency department's The patient is being discharged The patient was given a prescription of Edna Images Reviewed?: Images reviewed and evaluated by me Time of 1ST Reevaluation: 19:14 Reevaluation 1ST: Improved Patient Education/Counseling: Diagnosis, Treatment, Prognosis, Need For Follow Up Family Education/Counseling: No Family Present Additional Information Reviewed patient's previous visit(s): 07/28/24 for left sided weakness The following tests were ordered, and results were reviewed by me: CT Maxillofacial Additional information was gathered from interviewing the following independent historian: EMS I reviewed and agreed with the following test results read by other provider: CT Maxillofacial I discussed treatments and results with medical personnel and: PATIENT Comprehensive systems review obtained and negative except for what is stated in the HPI. Departure 1 Departure Time of Disposition: 19:14 Impression: Primary Impression: Facial contusion Qualified Codes: S00.83XA - Contusion of other part of head, initial encounter Additional Impression: Facial abrasion Qualified Codes: S00.81XA - Abrasion of other part of head, initial encounter Disposition: HOME / SELF CARE / HOMELESS Condition: Fair e-Prescriptions Hydrocodone-Acetaminophen (Hydrocodone Bitartrate/AC 5-325 mg) 1 Tab Tab 1 TAB PO Q8HP PRN for 5 Days, #15 TAB Prov: SEAN ZEPEDA MD 09/30/24 Discharged With: Self Critical Care Note Critical Care Time?: No Stability Stability form required: No Heart Score Heart Score: Heart Score Response (Comments) Value History N/A 0 EKG N/A 0 Age N/A 0 Risk Factors N/A 0 Troponin N/A 0 Total 0 I personally scribed for SEAN ZEPEDA MD ([email or web address]) on 09/30/24 at 17:20. Electronically submitted by Ke Nguyễn ([email or web address]). I personally scribed for SEAN ZEPEAD MD ([email or web address]) on 09/30/24 at 18:47. Electronically submitted by Ke Nguyễn ([email or web address]). SEAN ZEPEDA MD Sep 30, 2024 17:20
[2024-09-30 17:24] VITALS: TEMP 98
[2024-09-30] MEDS: HYDROcodone-ACET 5/325MG TAB PO ONE (18:15)
--- NOTE | 2024-09-30 18:31 | DVH ---
CT MAXILLOFACIAL WITHOUT Indication: fall EXAM DATE: 09/30/2024 05:39 PM COMPARISON: None TECHNIQUE: CT of the maxillofacial bones without intravenous contrast. RADIATION DOSE: CTDIvol: 66.95 mGy, DLP: 1313.08 mGy*cm FINDINGS: The paranasal sinuses are well pneumatized. The imaged portions of the mastoids are well pneumatized. Right frontal scalp and right periorbital hematoma. No retrobulbar hematoma. Right facial region cont usion/hematoma. No facial region fracture identified. [id number] bilateral temporomandibular joint arthrosis. IMPRESSION: Right frontal scalp, right periorbital / preseptal hematoma / contusion. Right facial region contusion/hematoma.
[2024-09-30] MEDS ORDERED: HYDR-4902 PO (19:13)
[2024-09-30 19:30] VITALS: BP 131/83; PULSE 83; RESP 16; O2SAT 98
== END 2024-09-30 19:50 | disposition home or self-care (01) ==
LOC: EDBD 17:07 → ER 17:09
DX: S00.83XA Contusion of other part of head, initial encounter (principal); S80.212A Abrasion, left knee, initial encounter; E11.9 Type 2 diabetes mellitus without complications; I25.10 Atherosclerotic heart disease of native coronary artery without angina pectoris; I11.0 Hypertensive heart disease with heart failure; I50.9 Heart failure, unspecified; Z86.73 Personal history of transient ischemic attack (TIA), and cerebral infarction without residual deficits; Z79.85 Long-term (current) use of injectable non-insulin antidiabetic drugs; Z88.0 Allergy status to penicillin; Z90.49 Acquired absence of other specified parts of digestive tract; Z79.84 Long term (current) use of oral hypoglycemic drugs; Z79.899 Other long term (current) drug therapy; Z98.890 Other specified postprocedural states; Z79.82 Long term (current) use of aspirin; Z91.040 Latex allergy status; Z88.5 Allergy status to narcotic agent; Z79.02 Long term (current) use of antithrombotics/antiplatelets; Z87.440 Personal history of urinary (tract) infections; W01.0XXA Fall on same level from slipping, tripping and stumbling without subsequent striking against object, initial encounter; Y93.89 Activity, other specified; Y92.89 Other specified places as the place of occurrence of the external cause; Y99.8 Other external cause status
CPT/HCPCS: 70486

== ENCOUNTER 2024-10-22 19:22 | Inpatient (IN) | payer MEDICARE, MEDICAID ==
[~2024-10-22] VITALS: Ht 157.5 cm; Wt 87.2 kg
[~2024-10-22 19:22] MED LIST changes: +HYDR-4902 PO
[2024-10-22 20:12] LABS: Hematocrit 41.0 % (36.0-46.0); Hemoglobin 13.7 g/dL (12.2-16.2); Mean Corpuscular Hemoglobin 29.3 pg (28.0-32.0); Mean Corpuscular Volume 87.9 fL (80.0-100.0); Nucleated Red Blood Cells % 0.1 %
[2024-10-22 20:23] LABS: Alanine Aminotransferase < 9 U/L (7-40); Albumin 4.6 g/dL (3.2-4.8); Alkaline Phosphatase 147 U/L (46-116); Anion Gap 9 (5-15); BUN/Creatinine Ratio 11.2 (10.0-20.0); Blood Urea Nitrogen 14 mg/dL (9-23); Calcium 10.2 mg/dL (8.7-10.4); Carbon Dioxide 30 mmol/L (20-31); Chloride 105 mmol/L (98-107); Glucose 221 mg/dL (74-106); Potassium 3.7 mmol/L (3.5-5.1); Sodium 144 mmol/L (136-145); Total Protein 6.8 g/dL (5.7-8.2)
[2024-10-22 20:24] LABS: Bilirubin, Total 0.2 mg/dL (0.2-1.0)
--- NOTE | 2024-10-22 20:25 | ED.PDOC ---
HPI Comments 59 year old female presents to the ED with a chief complaint of chest pain onset today (10/22/24) about 1 hour prior to ED arrival. Patient states she was sitting down when she began experiencing LT sided chest pain, stabbing/tightness sensation, noticed pain radiated to LT arm and abdomen. Patient states LT arm has a numbness/tingling sensation, is also experiencing headache, blurry vision. For the past day, patient has been experiencing blood in stool, blood when wiping, dark black stool. She is currently on Aspirin, Lasix. PMHx Angina, CAD, cancer,CHF, CVA, DM, HLD, kidney stones, NV, liver disease, cardiac stents x2. Denies dizziness, nausea, vomiting, hematemesis, dysuria, hematuria. No other symptoms or modifying factors present at this time. Chief Complaint: Chest Pain Time Seen by MD: 20:10 Primary Care Provider: unknown Reviewed Notes: Medications, Allergies Allergies: Coded Allergies: Latex (Verified Allergy, Mild, 06/02/24) INCLUDING TAPE, BROWN AND CLEAR TAPE Penicillins (Verified Allergy, Unknown, 07/30/24) Procaine (Verified Allergy, Unknown, 03/12/14) Home Meds Active Scripts Hydrocodone-Acetaminophen (Hydrocodone Bitartrate/AC 5-325 mg) 1 Tab Tab, 1 TAB PO Q8HP PRN for 5 Days, #15 TAB Prov:SEAN ZEPEDA MD 09/30/24 Ranolazine (Ranolazine ER) 500 Mg Tab, 500 MG PO BID for 30 Days, #60 TAB Prov:TED HUSSEIN NP 07/30/24 Baclofen (Baclofen) 10 Mg Tab, 5 MG PO Q8HP PRN for 7 Days, #21 TAB Prov:TED HUSSEIN NP 07/30/24 Isosorbide Mononitrate (Isosorbide Mononitrate Er) 30 Mg Tab, 1 TAB PO DAILY, #30 TAB 5 Refills Prov:TED HUSSEIN NP 07/30/24 Lidocaine (LIDODERM 5% TOPICAL PATCH) 1 Patch Ph, 1 PATCH TOP DAILY for 30 Days, #30 PATCH 0 Refills Prov:MIAN ROMO NP 06/02/24 Polyethylene Glycol 3350 (Miralax) 17 Gm Pow, 17 GM PO DAILY for 15 Days, #15 POW Prov:TED HUSSEIN CASEWORK MANAGER 05/03/24 Albuterol Sulfate (Albuterol Sulfate Hfa) 108 Mcg/Act Aer, 108 MCG IN BID PRN for 10 Days, #1 AER 0 Refills Prov:JONNLILI Rachell DO 12/01/22 Reported Medications Docusate Sodium (Docusate Sodium) 100 Mg Cap, 1 CAP PO BID for 30 Days, #60 07/03/24 Simvastatin (Simvastatin) 20 Mg Tab, 1 TAB PO DAILY for 90 Days, #90 07/03/24 Hydrocodone-Acetaminophen (Hydrocodone Bitartrate/AC 10-325 mg) 1 Tab Tab, 1 TAB PO Q6HR PRN for CHRONIC PAIN for 30 Days, #120 07/03/24 Potassium Chloride (Potassium Chloride ER) 10 Meq Tab, 1 TAB PO BID for 90 Days, #180 07/03/24 Paroxetine Hydrochloride (Paroxetine Hydrochloride) 20 Mg Tab, 1 TAB PO DAILY for 90 Days, #90 05/01/24 Tirzepatide (Mounjaro) 7.5 Mg/0.5 Ml Inj, 7.5 MG SC QWEEKLY for 28 Days, #2 10/18/23 Sitagliptin Phosphate (Januvia) 100 Mg Tab, 1 TAB PO DAILY 10/18/23 Clopidogrel Bisulfate (CLOPIDOGREL) 75 Mg Tab, 1 TAB PO DAILY 10/18/23 Furosemide (Furosemide) 40 Mg Tab, 1 TAB PO BID 10/18/23 Atorvastatin Calcium (ATORVASTATIN CALCIUM) 20 Mg Tab, 1 TAB PO DAILY 10/17/23 Cholecalciferol (Vitamin D-3 Super Strengt) 2,000 Unit Tab, 1 TAB PO DAILY 10/17/23 Gabapentin (Gabapentin) 300 Mg Cap, 1 CAP PO Q8HR for NEUROPATHIC PAIN for 30 Days, #90 10/17/23 Aspirin (Aspirin Low Dose) 81 Mg Tab, 1 TAB PO DAILY 10/17/23 Balsalazide Disodium (Balsalazide Disodium) 750 Mg Cap, 3 CAP PO BID for 30 Days, #180 10/17/23 Mode of Arrival: EMS Severity: Moderate Timing: Hours Duration: Since onset Prehospital treatment: None Location: Chest (L) Radiation: Abdomen, Arm (L), Hand (L) Quality: Stabbing, Tightness Onset: At Rest Cardiac Risk Factors: Hyperlipidemia, Diabetes PE Risk Factors: None History of: Similar pain in past, NV, Angina Modifying Factors: Nothing Associated Signs and Symptoms: Abdominal Pain Vital Signs Vital Signs Date Time Temp Pulse Resp B/P (MAP) Pulse Ox O2 Delivery O2 Flow Rate FiO2 10/22/24 20:37 69 10/22/24 19:22 98.1 18 130/77 (94) 96 98.1 Physical Exam PHYSICAL EXAM: General: Awake, alert and oriented. No acute distress. Skin: Skin in warm, dry and intact. Appropriate color for ethnicity. HEENT: The head is normocephalic and atraumatic. Conjunctivae are clear without exudates or hemorrhage. Sclera is non-icteric. EOM are intact. No signs of nystagmus. Eyelids are normal in appearance without swelling or lesions. Oral mucosa is pink and moist Neck: The neck is supple with normal range of motion. No JVD. Cardiac: Heart rate and rhythm are normal. No murmurs, gallops, or rubs are auscultated. Respiratory: No signs of respiratory distress. Lung sounds are clear in all lobes bilaterally without rales, rhonchi, or wheezes. Abdominal: Abdomen is soft, non-tender without distention, guarding or rigidity. Bowel sounds are present and normoactive in all four quadrants. Extremities: Upper and lower extremities are atraumatic in appearance without deformity or edema. Neurological: The patient is awake, alert and oriented to person, place, and time with normal speech. Speech is clear. There is no facial asymmetry. Psychiatric: Appropriate mood and affect. Good judgement and insight. Review of Systems: REVIEW OF SYSTEMS: General: No fever, no chills, or fatigue HEENT: No sore throat, no earache, no congestion, no neck pain. Positive vision changes Cardiac: Positive chest pain. No palpitations. Lungs: No shortness of breath, no cough. GI: No nausea, no vomiting, no diarrhea, no constipation, no abdominal pain : No dysuria, frequency, or urgency. No hematuria. Musculoskeletal: No joint pain , no joint swelling, no extremity edema. Skin: No rash, no itching. 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 Was a procedure done?: No CP Differential Dx Differential Diagnosis: Other (Differential diagnoses considered include acute ischemic coronary syndrome, aortic dissection, cardiac tamponade, mediastinitis, pulmonary embolus, pneumothorax, tension pneumothorax, esophageal rupture, coronary artery vasospasm, myocarditis, pericarditis, pneumonia, pulmonary edema, esophageal tear, pancreatitis, aortic stenosis, dilated cardiomyopathy, hypertrophic cardiomyopathy, mitral valve prolapse, malignancy, pleuritis, pneumomediastinum, primary pulmonary hypertension, cholecystitis, esophageal spasm, esophagus, gastritis, GERD, peptic ulcer disease, costochondritis, fibromyalgia, rib fracture, herpes zoster, radicular syndromes, thoracic outlet syndrome, somatization.) X-Ray, Labs, Meds, VS Vital Signs Date Time Temp Pulse Resp B/P (MAP) Pulse Ox O2 Delivery O2 Flow Rate FiO2 10/22/24 20:37 69 10/22/24 19:31 77 10/22/24 19:22 98.1 75 18 130/77 (94) 96 98.1 Lab Test 10/22/24 22:36 10/22/24 20:42 10/22/24 20:20 10/22/24 19:40 Range/Units Troponin I High Sensitivity < 3 L < 3 L < 3 L </=34 ng/L Urine Color Yellow Yellow Urine Clarity Turbid H Clear Urine pH 5.5 5.0-9.0 Urine Specific [place] 1.016 1.001-1.035 Urine Protein Negative Negative Urine Ketones Negative Negative Urine Blood Negative Negative /uL Urine Nitrite Negative Negative Urine Bilirubin Negative Negative Urine Urobilinogen Normal Negative mg/dL Urine Leukocyte Esterase 2+ Negative /uL Urine RBC 6 0 - 4 /hpf Urine Microscopic WBC 65 H 0-5 /HPF Urine Squamous Epithelial Cells Few <5 /hpf Urine Calcium Oxalate Crystals Few None Seen Urine Bacteria Few H None Seen /hpf Urine Hyaline Casts Mod 0 - 2 /lpf Urine Glucose Normal Normal mg/dL White Blood Count 6.9 4.4-10.8 10^3/uL Red Blood Count 4.66 4.0-5.20 10^6/uL Hemoglobin 13.7 12.2-16.2 g/dL Hematocrit 41.0 36.0-46.0 % Mean Corpuscular Volume 87.9 80.0-100.0 fL Mean Corpuscular Hemoglobin 29.3 28.0-32.0 pg Mean Corpuscular Hemoglobin Concent 33.4 32.0-36.0 g/dL Red Cell Distribution Width 15.4 H 11.8-14.3 % Platelet Count 221 140-450 10^3/uL Mean Platelet Volume 8.8 6.9-10.8 fL Neutrophils (%) (Auto) 61.6 37.0-80.0 % Lymphocytes (%) (Auto) 29.3 10.0-50.0 % Monocytes (%) (Auto) 4.1 0.0-12.0 % Eosinophils (%) (Auto) 4.5 0.0-7.0 % Basophils (%) (Auto) 0.5 0.0-2.0 % Neutrophils # (Auto) 4.2 1.6-8.6 10 ^3/uL Lymphocytes # (Auto) 2.0 0.4-5.4 10 ^3/uL Monocytes # (Auto) 0.3 0-1.3 10 ^3/uL Eosinophils # (Auto) 0.3 0-0.8 10 ^3/uL Basophils # (Auto) 0 0-0.2 10 ^3/uL Nucleated Red Blood Cells 0.1 % Sodium Level 144 136-145 mmol/L Potassium Level 3.7 3.5-5.1 mmol/L Chloride Level 105 98-107 mmol/L Carbon Dioxide Level 30 20-31 mmol/L Anion Gap 9 5-15 Blood Urea Nitrogen 14 9-23 mg/dL Creatinine 1.25 H 0.550-1.02 mg/dL Glomerular Filtration Rate Calc 49 >90 mL/min BUN/Creatinine Ratio 11.2 10.0-20.0 Serum Glucose 221 H 74-106 mg/dL Calcium Level 10.2 8.7-10.4 mg/dL Total Bilirubin 0.2 0.2-1.0 mg/dL Aspartate Amino Transferase (AST) 13 13-40 U/L Alanine Aminotransferase (ALT) < 9 7-40 U/L Alkaline Phosphatase 147 H 46-116 U/L B-Type Natriuretic Peptide 7.90 0-100 pg/mL Total Protein 6.8 5.7-8.2 g/dL Albumin 4.6 3.2-4.8 g/dL [place] [id number] Ph: [phone] DIAGNOSTIC IMAGING Diagnostic Imaging Report : [id number] Signed PATIENT: KAVYA TEJEDA ACCT: [id number] UNIT: [id number] : 1965 LOC: ER ROOM / BED: / AGE / SEX: 59 / F ADM STATUS: REG ER SERVICE 54 ORDERING PHYSICIAN: AL HYDE MD PROCEDURE(s): CXRP - CHEST PORTABLE REASON: CHEST PAIN ORDER NUMBER(s): [id number], ACCESSION NUMBER(s): [id number] EXAM: XY CHEST PORTABLE TECHNIQUE: Single frontal chest radiograph CLINICAL HISTORY: CHEST PAIN COMPARISON: XY CHEST PORTABLE on DOS: 07/28/24, XY CHEST PORTABLE on DOS: 07/19/24, XY CHEST PORTABLE on DOS: 07/04/24 Findings/Impression: Frontal chest radiograph demonstrates no acute osseous or superficial soft tissue abnormalities. The trachea is midline. The cardiac silhouette and mediastinum are within normal limits. No pneumothorax, pleural effusions, or consolidations. ATED BY: MARCE DIXON DO DICTATED DATE/TIME: 10/22/242046 SIGNED BY: MARCE DIXON DO SIGNED DATE/TIME: 10/22/242046 CC: Time of 1ST Reevaluation: 20:40 Reevaluation 1ST: Unchanged Patient Education/Counseling: Need For Follow Up Family Education/Counseling: No Family Present SEPSIS Sepsis Screen Date sepsis recognized/suspect: Oct 22, 2024 Time Sepsis recognized/suspect: 1921 Recent Procedure: No On Antibiotic Therapy: No Respiratory Rate >20: No Heart Rate >90: No Temp<36 C (96.8 F) or >38.3 C: No SBP <90 or MAP <65 mmHG: No New Acute Mental Status Change: No Is the patient on CPAP, BIPAP,: No Physician Orders Chest Portable (10/22/24 19:55) Electrocardigram (10/22/24 19:55) Electrocardigram (10/22/24 20:55) Electrocardigram (10/22/24 22:55) Stool Occult Blood (10/22/24 20:17) Vital Signs Date Time Temp Pulse Resp B/P (MAP) Pulse Ox O2 Delivery O2 Flow Rate FiO2 10/22/24 20:37 69 10/22/24 19:31 77 10/22/24 19:22 98.1 75 18 130/77 (94) 96 98.1 Laboratory Tests Test 10/22/24 19:40 White Blood Count 6.9 10^3/uL (4.4-10.8) Departure 1 Departure Time of Disposition: 21:27 Impression: Primary Impression: Chest pain Additional Impression: Rectal bleeding Disposition: ADMITTED INPATIENT Condition: Stable Comments MDM: 59 year old female with multiple risk factors and chest pain. Patient admitted to hospitalist service for further treatment, evaluation and monitoring. Extensive evaluation was performed in attempt to identify or rule out: (See differential diagnosis section) The following tests were ordered, and results were reviewed by me and discussed with patient: (See diagnostic results section) The following test were independently interpreted by me: EKG I reviewed and agreed with the following test results read by other providers: Chest X I reviewed the following notes from the pt's past medical encounters: Encounter September 2024 for facial contusion Additional information was gathered from interviewing the following independent historians: N/A Discussion of management or test interpretation with external physician/other qualified health healthcare administrator: N/A Decision regarding hospitalization or escalation of hospital level of care: Risk and benefits of admission for further treatment of patient's condition was considered. Due to patient's current clinical condition, high risk of decline and poor outcome if discharged and need for further inpatient management and monitoring, patient will be admitted to the hospital. Critical Care Note Critical Care Time?: No Stability Stability form required: No Heart Score Heart Score: Heart Score Response (Comments) Value History Moderate Suspicious 1 EKG Normal 0 Age 45-64 1 Risk Factors 1 or 2 risk factors 1 Troponin Normal limit 0 Total 3 I personally scribed for AL HYDE MD ([email or web address]) on 10/22/24 at 20:25. Electronically submitted by Gisell Edwards ([email or web address]). I personally scribed for AL HYDE MD ([email or web address]) on 10/22/24 at 21:42. Electronically submitted by Gisell Edwards ([email or web address]). AL HYDE MD Oct 22, 2024 20:25
[2024-10-22 20:29] LABS: Urine Protein, UAD Negative (Negative)
--- NOTE | 2024-10-22 20:49 | DVH ---
EXAM: XY CHEST PORTABLE TECHNIQUE: Single frontal chest radiograph CLINICAL HISTORY: CHEST PAIN COMPARISON: XY CHEST PORTABLE on DOS: 07/28/24, XY CHEST PORTABLE on DOS: 07/19/24, XY CHEST PORTABLE o n DOS: 07/04/24 Findings/Impression: Frontal chest radiograph demonstrates no acute osseous or superficial soft tissue abnormalities. The trachea is midline. The cardiac silhouette and mediastinum are within normal limits. No pneumothorax, pleural effusions, or consolidations.
--- NOTE | 2024-10-22 22:43 | DVHHP2 ---
Admitting Diagnosis: chest pain History of Present Illness 59 yo female patient with hx of CAD, CVA, DM, HLD, VT c/o left sided stabbing chest pain that radiates to her left arm. Patient endorses left arm tingling as well as an DANGELO and blurry vision. Patient also reports that she has been experiencing blood in her stool for the past days. While in the emergency department the patient was evaluated by the provider, As per provider: Labs, vital signs, and imagining monitored. Patient will be admitted for further evaluation and treatment. I discussed admission with the patient/family and is in agreement to treatment plan. Patient Family History: FH: breast cancer G8 SISTER FH: cancer FH: liver cancer G8 MOTHER, , Cause: Liver cancer Family history: Alzheimer's disease G8 MOTHER, , Cause: Liver cancer, Onset:Unknown Family history: Cardiovascular disease G8 FATHER, , Cause: CHF (congestive heart failure), Onset:Unknown Family history: Diabetes mellitus G8 BROTHER, Onset:Unknown Thyroid disease 19 CHILD Thyroid disease 19 CHILD Allergies: Coded Allergies: Latex (Verified Allergy, Mild, 06/02/24) INCLUDING TAPE, BROWN AND CLEAR TAPE Penicillins (Verified Allergy, Unknown, 07/30/24) Procaine (Verified Allergy, Unknown, 03/12/14) Home Meds Active Scripts Hydrocodone-Acetaminophen (Hydrocodone Bitartrate/AC 5-325 mg) 1 Tab Tab, 1 TAB PO Q8HP PRN for 5 Days, #15 TAB Prov:SEAN ZEPEDA MD 09/30/24 Ranolazine (Ranolazine ER) 500 Mg Tab, 500 MG PO BID for 30 Days, #60 TAB Prov:TED HUSSEIN NP 07/30/24 Baclofen (Baclofen) 10 Mg Tab, 5 MG PO Q8HP PRN for 7 Days, #21 TAB Prov:TED HUSSEIN NP 07/30/24 Isosorbide Mononitrate (Isosorbide Mononitrate Er) 30 Mg Tab, 1 TAB PO DAILY, #30 TAB 5 Refills Prov:TED HUSSEIN NP 07/30/24 Lidocaine (LIDODERM 5% TOPICAL PATCH) 1 Patch Ph, 1 PATCH TOP DAILY for 30 Days, #30 PATCH 0 Refills Prov:MIAN ROMO NP 06/02/24 Polyethylene Glycol 3350 (Miralax) 17 Gm Pow, 17 GM PO DAILY for 15 Days, #15 POW Prov:JOVITATED Kim ACCOUNTING SYSTEMS MANAGER 05/03/24 Albuterol Sulfate (Albuterol Sulfate Hfa) 108 Mcg/Act Aer, 108 MCG IN BID PRN for 10 Days, #1 AER 0 Refills Prov:LILI LUNSFORD DO 12/01/22 Reported Medications Docusate Sodium (Docusate Sodium) 100 Mg Cap, 1 CAP PO BID for 30 Days, #60 07/03/24 Simvastatin (Simvastatin) 20 Mg Tab, 1 TAB PO DAILY for 90 Days, #90 07/03/24 Hydrocodone-Acetaminophen (Hydrocodone Bitartrate/AC 10-325 mg) 1 Tab Tab, 1 TAB PO Q6HR PRN for CHRONIC PAIN for 30 Days, #120 07/03/24 Potassium Chloride (Potassium Chloride ER) 10 Meq Tab, 1 TAB PO BID for 90 Days, #180 07/03/24 Paroxetine Hydrochloride (Paroxetine Hydrochloride) 20 Mg Tab, 1 TAB PO DAILY for 90 Days, #90 05/01/24 Tirzepatide (Mounjaro) 7.5 Mg/0.5 Ml Inj, 7.5 MG SC QWEEKLY for 28 Days, #2 10/18/23 Sitagliptin Phosphate (Januvia) 100 Mg Tab, 1 TAB PO DAILY 10/18/23 Clopidogrel Bisulfate (CLOPIDOGREL) 75 Mg Tab, 1 TAB PO DAILY 10/18/23 Furosemide (Furosemide) 40 Mg Tab, 1 TAB PO BID 10/18/23 Atorvastatin Calcium (ATORVASTATIN CALCIUM) 20 Mg Tab, 1 TAB PO DAILY 10/17/23 Cholecalciferol (Vitamin D-3 Super Strengt) 2,000 Unit Tab, 1 TAB PO DAILY 10/17/23 Gabapentin (Gabapentin) 300 Mg Cap, 1 CAP PO Q8HR for NEUROPATHIC PAIN for 30 Days, #90 10/17/23 Aspirin (Aspirin Low Dose) 81 Mg Tab, 1 TAB PO DAILY 10/17/23 Balsalazide Disodium (Balsalazide Disodium) 750 Mg Cap, 3 CAP PO BID for 30 Days, #180 10/17/23 Current Medications Current Medications Medications (Trade) Dose Ordered Sig/Damon Route PRN Reason Start Time Stop Time Status Last Admin Acetaminophen/ Hydrocodone Bitart ([place] 5/325MG Tab) 1 tab Q4HP PRN PO MODERATE PAIN (4-6 PAIN SCALE) 10/22/24 22:45 10/23/24 10:17 DC Ondansetron HCl (Zofran) 4 mg Q4HP PRN IV NAUSEA / VOMITING 10/22/24 22:45 Docusate Sodium (Colace Capsule) 100 mg BIDPRN PRN PO FOR CONSTIPATION 10/22/24 22:45 Acetaminophen (Tylenol Tablet) 650 mg Q6HP PRN PO PAIN SCALE 1-3 OR TEMP>100.4 10/22/24 22:45 Morphine Sulfate 2 mg Q4HPRN PRN IV SEVERE PAIN (7-10 PAIN SCALE) 10/22/24 22:45 10/23/24 21:12 Nitroglycerin (Ntrostat Sublingual) 0.4 mg Q5MINP PRN SL FOR CHEST PAIN 10/22/24 22:45 Morphine Sulfate 2 mg Q30M PRN IV FOR CHEST PAIN 10/22/24 22:45 Diagnostic Test (Pha) (Accu-Chek Comfort Curve T) 1 strip ACHS 10/23/24 07:00 10/23/24 21:22 Insulin Human Regular (InsuLIN R) HS SC 10/23/24 22:00 10/23/24 21:34 Insulin Human Regular (InsuLIN R) AC SC 10/23/24 07:00 10/23/24 16:57 Dextrose 50 ml UD PRN IV Blood Sugar LESS THAN 60 10/22/24 22:45 Aspirin (Ecotrin Enteric Coated Tablet) 81 mg DAILY PO 10/23/24 10:00 10/23/24 10:28 Atorvastatin Calcium (Lipitor) 20 mg DAILY PO 10/23/24 10:00 10/23/24 10:28 Baclofen (Liorisal Tablet) 5 mg Q8HP PRN PO FOR MUSCLE SPASM 10/22/24 22:45 Clopidogrel Bisulfate (Plavix) 75 mg DAILY PO 10/23/24 10:00 10/23/24 10:28 Furosemide (Lasix Tablet) 40 mg BID PO 10/23/24 10:00 10/23/24 21:10 Gabapentin (Neurontin Capsule) 300 mg Q8HR PO 10/23/24 06:00 10/23/24 21:10 Paroxetine HCl (Paxil Tablet) 20 mg DAILY PO 10/23/24 10:00 10/23/24 10:27 Ranolazine (Ranexa ER) 500 mg BID PO 10/23/24 10:00 10/23/24 21:09 Isosorbide Mononitrate (Imdur Er Tablet) 30 mg DAILY PO 10/23/24 10:00 Diltiazem HCl (Cardizem ER Capsule) 120 mg DAILY PO 10/23/24 10:00 10/23/24 10:27 Oxycodone/ Acetaminophen (Percocet 5/ 325MG Tablet) 2 tab Q6HP PRN PO MODERATE PAIN (4-6 PAIN SCALE) 10/23/24 10:15 Mesalamine (DELZICOL Delayed Release Capsule) 800 mg TID PO 10/23/24 10:15 10/23/24 21:51 DC 10/23/24 21:08 Mesalamine (DELZICOL Delayed Release Capsule) 800 mg TID PO 10/23/24 22:00 Review of Systems Constitutional: denies chills, denies fever, denies malaise Eyes: denies eye pain, denies vision change ENT: denies ear pain, denies headache, denies nasal congestion, denies painful swallowing, denies voice change Cardiovascular: denies chest pain, denies edema, denies orthopnea, denies palpitations, denies paroxysmal nocturnal dyspnea Respiratory: denies cough, denies shortness of breath Gastrointestinal: denies constipation, denies diarrhea, denies nausea, denies vomiting Genitourinary: denies dysuria, denies frequent urination, denies urethral discharge Musculoskeletal: denies back pain, denies joint pain, denies muscle pain Skin: denies bruising, denies itching, denies rash Neurological: denies focal weakness, denies headache, denies sensory changes Psychiatric: denies anxiety, denies depression Endocrine: denies polydipsia, denies polyuria Hematologic/Lymphatic: denies easy bleeding, denies easy bruising, denies enlarged lymph nodes Allergic/Immunologic: denies allergy, denies hives Vital Signs Vital Signs Date Time Temp Pulse Resp B/P (MAP) Pulse Ox O2 Delivery O2 Flow Rate FiO2 10/23/24 21:12 68 16 106/67 10/23/24 21:00 97.9 95 97.9 10/23/24 14:18 Room Air* 0 21 Physical Exam General Appearance: alert, no distress HEENT: EOMI, PERRLA, normal external inspect of ears, no icterus, no nasal drainage Neck: no carotid bruit, no jugular venous distention (JVD), no lymphadenopathy Chest: normal thorax Respiratory: clear to auscultation, normal air movement Cardiovascular: regular rate and rhythm, no diastolic murmur, no jugular venous distention (JVD), no rub, no systolic murmur Abdominal: soft, no hepatomegaly, no mass, no splenomegaly, no tenderness Genitourinary: grossly normal external Musculoskeletal: no joint tenderness, no swelling Extremities: normal pulses, no calf tenderness, no clubbing, no cyanosis, no edema Skin: no bruising, no jaundice, no rash Neurological: alert, No focal deficit SEPSIS Sepsis Screen Date sepsis recognized/suspect: Oct 22, 2024 Time Sepsis recognized/suspect: 1921 Recent Procedure: No On Antibiotic Therapy: No Respiratory Rate >20: No Heart Rate >90: No Temp<36 C (96.8 F) or >38.3 C: No SBP <90 or MAP <65 mmHG: No New Acute Mental Status Change: No Is the patient on CPAP, BIPAP,: No Physician Orders Chest Portable (10/22/24 19:55) Admit (10/22/24 22:39) Code Status (10/22/24 22:39) Ondansetron Hcl (Zofran) (10/22/24 22:45) Docusate Sodium Capsule (Colace Capsule) (10/22/24 22:45) Condition: Fair (10/22/24 22:39) Acetaminophen Tablet (Tylenol Tablet) (10/22/24 22:45) Morphine Sulfate Injection (10/22/24 22:45) Sequential Compression Device (10/22/24 ) *Consult Dr. Gonzalez Sabillon (10/22/24 22:39) Nitroglycerin Sublingual (Ntrostat Subli (10/22/24 22:45) Morphine Sulfate Injection (10/22/24 22:45) Stat Ekg For Chest Pain (10/22/24 22:39) Notify Md Of Changes From Base (10/22/24 22:39) Director Airport For 24 Hours (10/22/24 22:39) Emergency Dysrhythmia Protocol (10/22/24 22:39) Rhythm Strips Once Every Shift (10/22/24 22:39) Oxygen By Nasal Cannula (10/22/24 22:39) Glucose Blood (Accu-Chek Comfort Curve T (10/23/24 07:00) Insulin R (Human) (Insulin R) (10/23/24 22:00) Insulin R (Human) (Insulin R) (10/23/24 07:00) Dextrose 50% Syringe (10/22/24 22:45) Cardiac Diet-2gna,Lofat,Lochol (10/23/24 Breakfast) Aspirin Enteric Coated Tablet (Ecotrin E (10/23/24 10:00) Atorvastatin (Lipitor) (10/23/24 10:00) Baclofen Tablet (Liorisal Tablet) (10/22/24 22:45) Clopidogrel Bisulfate (Plavix) (10/23/24 10:00) Furosemide Tablet (Lasix Tablet) (10/23/24 10:00) Gabapentin Capsule (Neurontin Capsule) (10/23/24 06:00) Paroxetine Tablet (Paxil Tablet) (10/23/24 10:00) Ranolazine (Ranexa Er) (10/23/24 10:00) Isosorbide Mononitrate Tablet (Imdur Er (10/23/24 10:00) Diltiazem Er Capsule (Cardizem Er Capsul (10/23/24 10:00) Oxycodone W/ Acet 5/325mg Tab (Percocet (10/23/24 10:15) * Gi Dvh Last Greaser (10/23/24 12:40) C-Reactive Protein (10/24/24 04:00) Stool Wbc (10/23/24 20:58) Clostridium Difficile Toxin (10/23/24 20:58) Mesalamine Dr Capsule (Delzicol Delayed (10/23/24 22:00) Vital Signs Date Time Temp Pulse Resp B/P (MAP) Pulse Ox O2 Delivery O2 Flow Rate FiO2 10/23/24 21:12 68 16 106/67 10/23/24 21:10 106/67 10/23/24 21:00 97.9 68 16 106/67 (80) 95 97.9 10/23/24 17:13 61 18 97/67 10/23/24 17:00 99.4 61 18 106/66 (79) 92 99.4 10/23/24 16:43 59 18 106/66 10/23/24 14:18 98.0 69 18 99/61 (74) 96 98.0 10/23/24 14:18 Room Air* 0 21 10/23/24 13:40 98.0 69 18 99/61 (74) 96 98.0 10/23/24 12:58 68 13 98/52 (67) 10/23/24 12:53 69 17 99/51 10/23/24 12:01 69 12 104/57 10/23/24 12:00 72 10/23/24 11:00 67 12 96/58 (71) 97 10/23/24 10:28 102/59 10/23/24 10:27 65 102/59 10/23/24 10:00 102/59 10/23/24 09:00 98.1 59 13 98/52 (67) 99 98.1 10/23/24 08:26 60 10/23/24 07:30 97.8 60 15 110/57 (74) 96 97.8 10/23/24 07:30 60 16 96 Nasal Cannula* 2 28 10/23/24 07:30 97.8 60 16 102/57 (72) 97 97.8 10/23/24 05:50 59 10/23/24 05:45 98.2 83 18 110/65 (80) 92 98.2 10/23/24 05:45 91 16 96 Nasal Cannula* 2 28 10/23/24 03:03 97.3 72 18 99/65 (76) 92 97.3 10/23/24 00:51 98.3 63 18 106/68 (81) 94 98.3 10/22/24 22:41 64 10/22/24 20:37 69 10/22/24 19:31 77 10/22/24 19:22 98.1 75 18 130/77 (94) 96 98.1 Laboratory Tests Test 10/22/24 19:40 10/23/24 05:19 White Blood Count 6.9 10^3/uL (4.4-10.8) 8.5 10^3/uL (4.4-10.8) Medications Medications Dose Ordered Sig/Damon Route Start Time Stop Time Status Last Admin Dose Admin Insulin Human Regular HS SC 10/23/24 22:00 10/23/24 21:34 Mesalamine 800 mg TID PO 10/23/24 10:15 10/23/24 21:51 DC 10/23/24 21:08 Results Labs Test 10/23/24 21:21 10/23/24 20:26 10/23/24 05:19 10/22/24 22:36 Range/Units POC Glucose 242 H 70-106 mg/dl Stool Occult Blood Negative Negative Stool Occult Blood Sample #3 Negative White Blood Count 8.5 4.4-10.8 10^3/uL Red Blood Count 4.80 4.0-5.20 10^6/uL Hemoglobin 14.2 12.2-16.2 g/dL Hematocrit 41.9 36.0-46.0 % Mean Corpuscular Volume 87.4 80.0-100.0 fL Mean Corpuscular Hemoglobin 29.5 28.0-32.0 pg Mean Corpuscular Hemoglobin Concent 33.8 32.0-36.0 g/dL Red Cell Distribution Width 15.8 H 11.8-14.3 % Platelet Count 225 140-450 10^3/uL Mean Platelet Volume 8.6 6.9-10.8 fL Neutrophils (%) (Auto) 60.9 37.0-80.0 % Lymphocytes (%) (Auto) 29.5 10.0-50.0 % Monocytes (%) (Auto) 4.2 0.0-12.0 % Eosinophils (%) (Auto) 4.8 0.0-7.0 % Basophils (%) (Auto) 0.6 0.0-2.0 % Neutrophils # (Auto) 5.2 1.6-8.6 10 ^3/uL Lymphocytes # (Auto) 2.5 0.4-5.4 10 ^3/uL Monocytes # (Auto) 0.4 0-1.3 10 ^3/uL Eosinophils # (Auto) 0.4 0-0.8 10 ^3/uL Basophils # (Auto) 0 0-0.2 10 ^3/uL Nucleated Red Blood Cells 0.1 % Sodium Level 145 136-145 mmol/L Potassium Level 3.5 3.5-5.1 mmol/L Chloride Level 105 98-107 mmol/L Carbon Dioxide Level 30 20-31 mmol/L Anion Gap 10 5-15 Blood Urea Nitrogen 16 9-23 mg/dL Creatinine 1.18 H 0.550-1.02 mg/dL Glomerular Filtration Rate Calc 53 >90 mL/min BUN/Creatinine Ratio 13.6 10.0-20.0 Serum Glucose 164 H 74-106 mg/dL Calcium Level 10.6 H 8.7-10.4 mg/dL Total Bilirubin 0.4 0.2-1.0 mg/dL Aspartate Amino Transferase (AST) 10 L 13-40 U/L Alanine Aminotransferase (ALT) < 9 7-40 U/L Alkaline Phosphatase 123 H 46-116 U/L Total Protein 7.0 5.7-8.2 g/dL Albumin 4.7 3.2-4.8 g/dL Troponin I High Sensitivity < 3 L </=34 ng/L Test 10/22/24 20:20 10/22/24 19:40 Range/Units Urine Color Yellow Yellow Urine Clarity Turbid H Clear Urine pH 5.5 5.0-9.0 Urine Specific [place] 1.016 1.001-1.035 Urine Protein Negative Negative Urine Ketones Negative Negative Urine Blood Negative Negative /uL Urine Nitrite Negative Negative Urine Bilirubin Negative Negative Urine Urobilinogen Normal Negative mg/dL Urine Leukocyte Esterase 2+ Negative /uL Urine RBC 6 0 - 4 /hpf Urine Microscopic WBC 65 H 0-5 /HPF Urine Squamous Epithelial Cells Few <5 /hpf Urine Calcium Oxalate Crystals Few None Seen Urine Bacteria Few H None Seen /hpf Urine Hyaline Casts Mod 0 - 2 /lpf Urine Glucose Normal Normal mg/dL B-Type Natriuretic Peptide 7.90 0-100 pg/mL Plan 1. Unstable angina Monitor, start antianginal 2. Rectal bleeding Monitor, send stool OB, daily labs 3. CAD s/p stent x 2 Monitor, PPI 4. HLD Monitor, restart DAPT 5. Hx of ulcerative colitis Monitor, GI consult 6. Hx of CVA with residual deficits Monitor Plan discussed with: Patient, Other TED HUSSEIN NP Oct 22, 2024 22:43
[2024-10-22] MEDS ORDERED: HYDROcodone-ACET 5/325MG TAB PO PRN (22:45)
[2024-10-22] MEDS ORDERED: NITROGLYCERIN 0.4 MG SL TAB SL PRN (22:45)
[2024-10-22] MEDS ORDERED: DEXTROSE (50%) 50ML SYRG IV PRN (22:45)
[2024-10-22] MEDS ORDERED: DOCUSATE SOD 100 MG CAP PO PRN (22:45)
[2024-10-22] MEDS ORDERED: ACETAMINOPHEN 325 MG TAB PO PRN (22:45)
[2024-10-22] MEDS ORDERED: BACLOFEN 10 MG TAB PO PRN (22:45)
[2024-10-22] MEDS ORDERED: MORPHINE SULFATE INJ 2 MG/ml SYRG IV PRN (22:45)
[2024-10-23] VITALS (7 sets, daily range): BP systolic 99–106; BP diastolic 61–67; PULSE 60–91; RESP 16–18; TEMP 97.9–99.4; O2SAT 92–96
[2024-10-23] MEDS: ACETAMINOPHEN 500 MG TAB or CAP PO ONE (02:51)
[2024-10-23 06:09] LABS: Hematocrit 41.9 % (36.0-46.0); Hemoglobin 14.2 g/dL (12.2-16.2); Mean Corpuscular Hemoglobin 29.5 pg (28.0-32.0); Mean Corpuscular Volume 87.4 fL (80.0-100.0); Nucleated Red Blood Cells % 0.1 %
[2024-10-23 06:26] LABS: Albumin 4.7 g/dL (3.2-4.8); Anion Gap 10 (5-15); BUN/Creatinine Ratio 13.6 (10.0-20.0); Bilirubin, Total 0.4 mg/dL (0.2-1.0); Blood Urea Nitrogen 16 mg/dL (9-23); Carbon Dioxide 30 mmol/L (20-31); Chloride 105 mmol/L (98-107); Potassium 3.5 mmol/L (3.5-5.1); Sodium 145 mmol/L (136-145); Total Protein 7.0 g/dL (5.7-8.2)
[2024-10-23 06:29] LABS: Alanine Aminotransferase < 9 U/L (7-40); Alkaline Phosphatase 123 U/L (46-116); Calcium 10.6 mg/dL (8.7-10.4)
--- NOTE | 2024-10-23 06:37 | ECG ---
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
--- NOTE | 2024-10-23 06:37 | ECG ---
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
--- NOTE | 2024-10-23 06:37 | ECG ---
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
[2024-10-23] MEDS: InsuLIN REG 1unit/0.01ml Soln (100units/ml) SC SCH ×2 (07:00→21:34)
[2024-10-23] MEDS: ACCU-CHEK COMFORT CURVE STRIP VI SCH (07:00)
[2024-10-23 07:04] LABS: Glucose 164 mg/dL (74-106)
[2024-10-23] MEDS: GABAPENTIN 300 MG CAP PO SCH (07:10)
--- NOTE | 2024-10-23 08:55 | DVHINCON2 ---
Date of service: Oct 23, 2024 History of Present Illness HPI Patient is a 59-year-old female who presented to the hospital with 1 hour of chest discomfort. It started when she was sitting down. She mentions that she has been experiencing some chest discomfort going back for weeks. Cardiology is involved for cardiac aspects of care. She is known to our practice from previously admitted occasions and prior outside visits. It seems that she ran out of some of her antianginal medications awhile back. It is of note that she was in the hospital in July for comparative presentation. She had not have any outside visits since that admission. She also mentions that for the past few days she is experiencing bloody stool and dark stool. She does complain of occasional abdominal pain. Home Meds Active Scripts Hydrocodone-Acetaminophen (Hydrocodone Bitartrate/AC 5-325 mg) 1 Tab Tab, 1 TAB PO Q8HP PRN for 5 Days, #15 TAB Prov:SEAN ZEPEDA MD 09/30/24 Ranolazine (Ranolazine ER) 500 Mg Tab, 500 MG PO BID for 30 Days, #60 TAB Prov:TED HUSSEIN NP 07/30/24 Baclofen (Baclofen) 10 Mg Tab, 5 MG PO Q8HP PRN for 7 Days, #21 TAB Prov:TED HUSSEIN NP 07/30/24 Isosorbide Mononitrate (Isosorbide Mononitrate Er) 30 Mg Tab, 1 TAB PO DAILY, #30 TAB 5 Refills Prov:TED HUSSEIN NP 07/30/24 Lidocaine (LIDODERM 5% TOPICAL PATCH) 1 Patch Ph, 1 PATCH TOP DAILY for 30 Days, #30 PATCH 0 Refills Prov:MIAN ROMO NP 06/02/24 Polyethylene Glycol 3350 (Miralax) 17 Gm Pow, 17 GM PO DAILY for 15 Days, #15 POW Prov:TED HUSSEIN NP 05/03/24 Albuterol Sulfate (Albuterol Sulfate Hfa) 108 Mcg/Act Aer, 108 MCG IN BID PRN for 10 Days, #1 AER 0 Refills Prov:LILI LUNSFORD DO 12/01/22 Reported Medications Docusate Sodium (Docusate Sodium) 100 Mg Cap, 1 CAP PO BID for 30 Days, #60 07/03/24 Simvastatin (Simvastatin) 20 Mg Tab, 1 TAB PO DAILY for 90 Days, #90 07/03/24 Hydrocodone-Acetaminophen (Hydrocodone Bitartrate/AC 10-325 mg) 1 Tab Tab, 1 TAB PO Q6HR PRN for CHRONIC PAIN for 30 Days, #120 07/03/24 Potassium Chloride (Potassium Chloride ER) 10 Meq Tab, 1 TAB PO BID for 90 Days, #180 07/03/24 Paroxetine Hydrochloride (Paroxetine Hydrochloride) 20 Mg Tab, 1 TAB PO DAILY for 90 Days, #90 05/01/24 Tirzepatide (Mounjaro) 7.5 Mg/0.5 Ml Inj, 7.5 MG SC QWEEKLY for 28 Days, #2 10/18/23 Sitagliptin Phosphate (Januvia) 100 Mg Tab, 1 TAB PO DAILY 10/18/23 Clopidogrel Bisulfate (CLOPIDOGREL) 75 Mg Tab, 1 TAB PO DAILY 10/18/23 Furosemide (Furosemide) 40 Mg Tab, 1 TAB PO BID 10/18/23 Atorvastatin Calcium (ATORVASTATIN CALCIUM) 20 Mg Tab, 1 TAB PO DAILY 10/17/23 Cholecalciferol (Vitamin D-3 Super Strengt) 2,000 Unit Tab, 1 TAB PO DAILY 10/17/23 Gabapentin (Gabapentin) 300 Mg Cap, 1 CAP PO Q8HR for NEUROPATHIC PAIN for 30 Days, #90 10/17/23 Aspirin (Aspirin Low Dose) 81 Mg Tab, 1 TAB PO DAILY 10/17/23 Balsalazide Disodium (Balsalazide Disodium) 750 Mg Cap, 3 CAP PO BID for 30 Days, #180 10/17/23 Past Medical History Others Past medical history includes coronary artery disease, diabetes mellitus, 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 She has had kidney stones/hydronephrosis/hy droureter before. Uses a walker for ambulation (secondary to old CVA). Patient was found to have multivessel coronary artery disease (left heart catheterization of July 09, 2024). On July 12 2024, the patient was sent to higher level of care ([facility]) for possible CABG surgery. Patient ended up having 1 stent in LAD and CABG was not performed. At next presentation, patient was sent back to [facility] and had another stent (this time in LCX). Reportedly the patient does have pinching of diagonals. Patient Family History: FH: breast cancer G8 SISTER FH: cancer FH: liver cancer G8 MOTHER, , Cause: Liver cancer Family history: Alzheimer's disease G8 MOTHER, , Cause: Liver cancer, Onset:Unknown Family history: Cardiovascular disease G8 FATHER, , Cause: CHF (congestive heart failure), Onset:Unknown Family history: Diabetes mellitus G8 BROTHER, Onset:Unknown Thyroid disease 19 CHILD Thyroid disease 19 CHILD Smoker: No Hx (Negative) Lives with: With family Review of Systems Constitutional: No symptom reported Ears, Nose, & Throat: No symptom reported Eyes: No symptom reported Cardiovascular: Chest Pain Gastrointestinal: Abdominal Pain, Hematochezia Musculoskeletal: No symptom reported All Other Systems 14 point review of system was performed. Relevant findings as per above and as per HPI. Otherwise negative. H&P Exam Vital Signs Vital Signs Date Time Temp Pulse Resp B/P (MAP) Pulse Ox O2 Delivery O2 Flow Rate FiO2 10/23/24 07:30 97.8 60 15 110/57 (74) 96 97.8 10/23/24 07:30 Nasal Cannula* 2 28 General Appeara: Well developed, Well nourished, Obese Head Exam: Normal inspection Neck Exam: Normal inspection Eye Exam: bilateral eye PERRL Mouth: Normal Inspection Pulmonary/Respiratory: Lungs clear Cardiovascular/Chest: Normal inspection, Regular rate Peripheral Pulses: 2+ carotid (R), 2+ carotid (L), 2+ femoral (R), 2+ femoral (L), 2+ dorsalis pedis (R), 2+ dorsalis pedis (L), 2+ Radial (R), 2+ Radial (L) Abdominal Exam: Normal bowel sounds, Soft Neuro/Mental St: Alert, Oriented Appearance: Appropriate appearance Eye contact/ Speech: Cooperative Labs/Xrays Labs Test 10/23/24 07:43 10/23/24 05:19 10/22/24 22:36 10/22/24 20:20 Range/Units POC Glucose 167 H 70-106 mg/dl White Blood Count 8.5 4.4-10.8 10^3/uL Red Blood Count 4.80 4.0-5.20 10^6/uL Hemoglobin 14.2 12.2-16.2 g/dL Hematocrit 41.9 36.0-46.0 % Mean Corpuscular Volume 87.4 80.0-100.0 fL Mean Corpuscular Hemoglobin 29.5 28.0-32.0 pg Mean Corpuscular Hemoglobin Concent 33.8 32.0-36.0 g/dL Red Cell Distribution Width 15.8 H 11.8-14.3 % Platelet Count 225 140-450 10^3/uL Mean Platelet Volume 8.6 6.9-10.8 fL Neutrophils (%) (Auto) 60.9 37.0-80.0 % Lymphocytes (%) (Auto) 29.5 10.0-50.0 % Monocytes (%) (Auto) 4.2 0.0-12.0 % Eosinophils (%) (Auto) 4.8 0.0-7.0 % Basophils (%) (Auto) 0.6 0.0-2.0 % Neutrophils # (Auto) 5.2 1.6-8.6 10 ^3/uL Lymphocytes # (Auto) 2.5 0.4-5.4 10 ^3/uL Monocytes # (Auto) 0.4 0-1.3 10 ^3/uL Eosinophils # (Auto) 0.4 0-0.8 10 ^3/uL Basophils # (Auto) 0 0-0.2 10 ^3/uL Nucleated Red Blood Cells 0.1 % Sodium Level 145 136-145 mmol/L Potassium Level 3.5 3.5-5.1 mmol/L Chloride Level 105 98-107 mmol/L Carbon Dioxide Level 30 20-31 mmol/L Anion Gap 10 5-15 Blood Urea Nitrogen 16 9-23 mg/dL Creatinine 1.18 H 0.550-1.02 mg/dL Glomerular Filtration Rate Calc 53 >90 mL/min BUN/Creatinine Ratio 13.6 10.0-20.0 Serum Glucose 164 H 74-106 mg/dL Calcium Level 10.6 H 8.7-10.4 mg/dL Total Bilirubin 0.4 0.2-1.0 mg/dL Aspartate Amino Transferase (AST) 10 L 13-40 U/L Alanine Aminotransferase (ALT) < 9 7-40 U/L Alkaline Phosphatase 123 H 46-116 U/L Total Protein 7.0 5.7-8.2 g/dL Albumin 4.7 3.2-4.8 g/dL Troponin I High Sensitivity < 3 L </=34 ng/L Urine Color Yellow Yellow Urine Clarity Turbid H Clear Urine pH 5.5 5.0-9.0 Urine Specific Koppel 1.016 1.001-1.035 Urine Protein Negative Negative Urine Ketones Negative Negative Urine Blood Negative Negative /uL Urine Nitrite Negative Negative Urine Bilirubin Negative Negative Urine Urobilinogen Normal Negative mg/dL Urine Leukocyte Esterase 2+ Negative /uL Urine RBC 6 0 - 4 /hpf Urine Microscopic WBC 65 H 0-5 /HPF Urine Squamous Epithelial Cells Few <5 /hpf Urine Calcium Oxalate Crystals Few None Seen Urine Bacteria Few H None Seen /hpf Urine Hyaline Casts Mod 0 - 2 /lpf Urine Glucose Normal Normal mg/dL Test 10/22/24 19:40 Range/Units B-Type Natriuretic Peptide 7.90 0-100 pg/mL Assessment/Plan Plan Patient is a 59-year-old female who presented to the hospital with 1 hour of chest discomfort. It started when she was sitting down. She mentions that she has been experiencing some chest discomfort going back for weeks. Cardiology is involved for cardiac aspects of care. She is known to our practice from previously admitted occasions and prior outside visits. It seems that she ran out of some of her antianginal medications awhile back. It is of note that she was in the hospital in July for comparative presentation. She had not have any outside visits since that admission. She also mentions that for the past few days she is experiencing bloody stool and dark stool. She does complain of occasional abdominal pain. Does have history of ulcerative colitis/Crohn disease. She also had C diff colitis few months back. During earlier admission in June/2024, the patient did have some chest pain with abnormal troponin and was found to have non-STEMI. Cardiac catheterization at that point revealed multivessel coronary artery disease and the patient was sent to [facility] for the suggested CABG surgery. It seems that in [facility] they did not do the CABG and the patient had only 1 stent. Later the patient was discharged home from [facility]. In the middle of July patient came back with chest discomfort to our facility and with diagnosis of unstable angina was sent back to [facility]. In [facility], the patient again had another stent. I had an opportunity to talk to the industry analyst in [facility]. It seems that during the 1st admission to [facility], they did put 1 stent in LAD. During the 2nd admission they put another stent in circumflex. It is of note that the patient did have LAD with trifurcation with disease in all of them. Reportedly (as per industry analyst in [facility]) LAD stent has resulted in pinching of the diagonals. Patient mentions compliance with aspirin/Plavix. Not in acute distress. No JVD. Mucosa is pink and dry. No carotid bruit. Lungs are clear to auscultation. Not using accessory muscles of breathing. Cardiac: Regular, no thrills/gallop. Abdomen is soft. Lower abdominal tenderness can be elicited. There is no rebound. Bowel sound is positive There was no gross mass/hepatomegaly. Extremities do not reveal edema. Dorsalis pedis is 2+ bilateral. 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 She has had kidney stones/hydronephrosis/hydroureter before. Uses a walker for ambulation (secondary to old CVA). Patient was found to have multivessel coronary artery disease (left heart catheterization of July 09, 2024). On July 12 2024, the patient was sent to higher level of care ([facility]) for possible CABG surgery. Patient ended up having 1 stent in LAD and CABG was not performed. At next presentation, patient was sent back to [facility] and had another stent (this time in LCX). Reportedly the patient does have pinching of diagonals. Echocardiogram of December 16, 2022 (performed in [facility]) revealed ejection fraction of 60%, mild TR and right ventricular systolic pressure of 27 mm Hg. Echocardiogram of October 18, 2023 reported ejection fraction 55-60%, mild MR/TR and right ventricular systolic pressure of 25 mm Echocardiogram of May 05, 2024 revealed ejection fraction of 50-55%, normal diastolic, trace MR/TR and right ventricular systolic pressure of 28 mm Hg Echocardiogram of July 05, 2024 had revealed ejection fraction of 40%, trace MR/TR and right ventricular systolic pressure of 30 mm Hg Echocardiogram of July 29, 2024 revealed ejection fraction of 50-55%, no wall motion abnormality, trace mitral regurgitation, no tricuspid regurgitation. As there was no good tricuspid regurgitation jet, right ventricular systolic pressure could not be estimated Nuclear stress test of January 03, 2022 (performed as outpatient) revealed ejection fraction of 80% and no evidence for ischemia/scar. Left heart catheterization of July 09 2024 had revealed triple-vessel coronary artery disease Hemoglobin: 13.7 - 14.2 Creatinine: 1.25 - 1.18 Potassium: 3.7 - 3.5 Troponin (high sensitive): <3 - <3 Chest x-ray revealed: Frontal chest radiograph demonstrates no acute osseous or superficial soft tissue abnormalities. The trachea is midline. The cardiac silhouette and mediastinum are within normal limits. No pneumothorax, pleural effusions, or consolidations. EKG reveals sinus rhythm with nonspecific ST-T changes Tele reveals sinus rhythm Patient is a 59-year-old female who presents with atypical chest discomfort and generalized weakness. Does have history of coronary artery disease. Has had repeated ischemic workups recently. Is on dual antiplatelet therapy. Has not been compliant with the suggested antianginal therapy which could have contributed to the clinical picture. Did not come for outside cardiology visits since last admission. High sensitive troponin has been negative. Acute coronary syndrome is not considered at this point. She also experienced some abdominal pain and bloody bowel movement with dark stool. The patient does have history of inflammatory bowel disease. Did have non-STEMI in early July. Was sent to [facility] for possible CABG as she was found to have multivessel coronary artery disease. Instead of CABG the patient was given 1 stent (in LAD which resulted in pinching of diagonals). During the next presentation, the patient was sent back to [facility] and ended up having another stent, this time in LCX. To continue aspirin/Plavix. ACS is not considered at this point. We will restart antianginal therapy. Patient was counseled to be compliant with medication and followups. Chest pain Coronary artery disease Triple-vessel coronary artery disease Status post PCI (drug-eluting stent deployment of LAD and LCX) History of old CVA with left hemiparesis History of Crohn disease/ulcerative colitis Inflammatory Bowel Disease Constipation Hyperlipidemia Status post carotid endarterectomy Diverticular disease, history of Noncompliance with medication and followups Cardiac suggestion for management: Manage in tele Follow-up electrolytes and kidney function tests and correct abnormalities. Keep potassium above 4 and magnesium above 2 Aspirin/Plavix, continue Imdur, long-actin mg daily Ranolazine: 500 mg p.o. b.i.d. Diltiazem-ER: 120 mg daily There is no indication to repeat any ischemic workup at this point Evaluation and management of abdominal pain/recent GI bleeding as per primary team/GI Lifestyle and risk factor modification is advised Thank you for consultation A total of 75 minutes was spent reviewing the patient record, examining the patient, making a diagnostic and therapeutic plan, discussing this plan with medical personnel, following up on diagnostic studies and following the patient for clinical stability excluding any and all procedures. At least 50% of this time was spent in direct, [id number] contact. Thank you for allowing me to participate in this patient's care. Further recommendations will depend on patient's clinical course. Please do not hesitate to contact me if you have any questions or concerns. This medical document was created using electronic medical record system with [employer] computerized dictation system. Although this document has been carefully reviewed, there may still be some phonetic and typographical errors. These areas are purely typographical due to the imperfection of the software programs, and do not reflect any compromise in the patient's medical care Plan discussed with: Patient, Other (nurse) BALTAZAR SOMMERS MD Oct 23, 2024 08:55
[2024-10-23] MEDS: ISOSORBIDE MONONITRATE ER 60 MG TAB PO SCH (10:00)
--- NOTE | 2024-10-23 10:01 | DVHPN2 ---
Progress Note - Dictate Date Seen: Oct 23, 2024 Medical Necessity Reason Pt with a Central, PICC or Fol: No vital signs Vital Sign Date Time Temp Pulse Resp B/P (MAP) Pulse Ox O2 Delivery O2 Flow Rate FiO2 10/23/24 08:26 60 10/23/24 07:30 97.8 15 110/57 (74) 96 97.8 10/23/24 07:30 Nasal Cannula* 2 28 medications Current Medications Medications Dose Ordered Sig/Damon Route Start Time Stop Time Status Last Admin Dose Admin Acetaminophen/ Hydrocodone Bitart 1 tab Q4HP PRN PO 10/22/24 22:45 Ondansetron HCl 4 mg Q4HP PRN IV 10/22/24 22:45 Docusate Sodium 100 mg BIDPRN PRN PO 10/22/24 22:45 Acetaminophen 650 mg Q6HP PRN PO 10/22/24 22:45 Morphine Sulfate 2 mg Q4HPRN PRN IV 10/22/24 22:45 Nitroglycerin 0.4 mg Q5MINP PRN SL 10/22/24 22:45 Morphine Sulfate 2 mg Q30M PRN IV 10/22/24 22:45 Diagnostic Test (Pha) 1 strip ACHS 10/23/24 07:00 10/23/24 07:00 1 STRIP Insulin Human Regular HS SC 10/23/24 22:00 Insulin Human Regular AC SC 10/23/24 07:00 Dextrose 50 ml UD PRN IV 10/22/24 22:45 Aspirin 81 mg DAILY PO 10/23/24 10:00 Atorvastatin Calcium 20 mg DAILY PO 10/23/24 10:00 Baclofen 5 mg Q8HP PRN PO 10/22/24 22:45 Clopidogrel Bisulfate 75 mg DAILY PO 10/23/24 10:00 Furosemide 40 mg BID PO 10/23/24 10:00 Gabapentin 300 mg Q8HR PO 10/23/24 06:00 10/23/24 07:10 300 MG Paroxetine HCl 20 mg DAILY PO 10/23/24 10:00 Ranolazine 500 mg BID PO 10/23/24 10:00 Isosorbide Mononitrate 30 mg DAILY PO 10/23/24 10:00 Diltiazem HCl 120 mg DAILY PO 10/23/24 10:00 objective General Appearance: alert, no distress HEENT: EOMI, PERRLA, normal external inspect of ears, no icterus, no nasal drainage Neck: no carotid bruit, no jugular venous distention (JVD), no lymphadenopathy Chest: normal thorax Respiratory: clear to auscultation, normal air movement Cardiovascular: regular rate and rhythm, no diastolic murmur, no jugular venous distention (JVD), no rub, no systolic murmur Abdominal: soft, no hepatomegaly, no mass, no splenomegaly, no tenderness Genitourinary: grossly normal external Musculoskeletal: no joint tenderness, no swelling Extremities: normal pulses, no calf tenderness, no clubbing, no cyanosis, no edema Skin: no bruising, no jaundice, no rash Neurological: alert, No focal deficit laboratory and microbiology Laboratory Tests 10/23/24 05:19 Test 10/23/24 05:19 Range/Units Serum Glucose 164 H 74-106 mg/dL Problem List 1. Unstable angina Monitor, start antianginal 2. Rectal bleeding Monitor, send stool OB, daily labs 3. CAD s/p stent x 2 Monitor, PPI 4. HLD Monitor, restart DAPT 5. Hx of ulcerative colitis Monitor, GI consult 6. Hx of CVA with residual deficits Monitor Assessment/Plan Subjective Patient is awake and alert. Objective Patient states she no longer has chest pain she sts her pain is more in her abdomen and most likely related to her ulcerative colitis and Crohns. Patient states that she does have a history of external hemorrhoids. Hemoglobin remains stable. Patient was seen by cardiology. She was continued on her dual antiplatelet therapy. Patient has a history of recent cardiac st[facility] from [facility]. Plan Continue current treatment. Cardiac harrison patient appears to be stable. Pending GI evaluation. Monitor daily labs. Monitor for any active signs or symptoms of bleeding. Plan discussed with: Patient, Other TED HUSSEIN NP Oct 23, 2024 10:01
[2024-10-23] MEDS: MESALAMINE 400mg Delayed Release Cap PO SCH ×2 (10:15→22:00)
[2024-10-23] MEDS: dilTIAZem 120MG ER CAP PO SCH (10:27)
[2024-10-23] MEDS: PARoxetine 20 MG TAB PO SCH (10:27)
[2024-10-23] MEDS: RANOLAZINE ER 500 MG TAB PO SCH (10:27)
[2024-10-23] MEDS: ASPirin-EC 81 mg tab PO SCH (10:28)
[2024-10-23] MEDS: ATORVASTATIN 20 MG TAB PO SCH (10:28)
[2024-10-23] MEDS: CLOPIDOGREL BISULFATE 75 MG TAB PO SCH (10:28)
[2024-10-23] MEDS: FUROSEMIDE 40 MG TAB PO SCH (10:28)
[2024-10-23] MEDS: MORPHINE SULFATE INJ 2 MG/ml SYRG IV PRN (12:01)
--- NOTE | 2024-10-23 20:58 | DVHINCON2 ---
Date of service: Oct 23, 2024 Referring Physician Ted Hussein Reason for Consultation Rectal bleeding History of Present Illness Patient is a 59-year-old female who presented to the hospital with 1 hour of chest discomfort. She mentions that she has been experiencing some chest discomfort going back for weeks. She also mentions that for the past few days she is experiencing bloody stool and dark stool. She does complain of occasional abdominal pain. Patient has a prior history of ulcerative colitis. She was seen by me in [facility] in 2022 for symptoms of abdominal pain. She also had history of C diff in July of this year that was treated with oral vancomycin before she was transferred to higher level of care for possible cardiac surgery. Her colonoscopy was approximately 1-2 years ago [facility] Past Medical History Fatty liver Uterine fibroids Uterine cancer Ulcerative colitis Two strokes, coronary artery disease Anxiety depression, bipolar Kidney stones Rheumatoid arthritis Family History: FH: breast cancer G8 SISTER FH: cancer FH: liver cancer G8 MOTHER, , Cause: Liver cancer Family history: Alzheimer's disease G8 MOTHER, , Cause: Liver cancer, Onset:Unknown Family history: Cardiovascular disease G8 FATHER, , Cause: CHF (congestive heart failure), Onset:Unknown Family history: Diabetes mellitus G8 BROTHER, Onset:Unknown Thyroid disease 19 CHILD Thyroid disease 19 CHILD Allergies: Coded Allergies: Latex (Verified Allergy, Mild, 06/02/24) INCLUDING TAPE, BROWN AND CLEAR TAPE Penicillins (Verified Allergy, Unknown, 07/30/24) Procaine (Verified Allergy, Unknown, 03/12/14) Home Meds Active Scripts Hydrocodone-Acetaminophen (Hydrocodone Bitartrate/AC 5-325 mg) 1 Tab Tab, 1 TAB PO Q8HP PRN for 5 Days, #15 TAB Prov:SEAN ZEPEDA MD 09/30/24 Ranolazine (Ranolazine ER) 500 Mg Tab, 500 MG PO BID for 30 Days, #60 TAB Prov:TED HUSSEIN NP 07/30/24 Baclofen (Baclofen) 10 Mg Tab, 5 MG PO Q8HP PRN for 7 Days, #21 TAB Prov:TED HUSSEIN NP 07/30/24 Isosorbide Mononitrate (Isosorbide Mononitrate Er) 30 Mg Tab, 1 TAB PO DAILY, #30 TAB 5 Refills Prov:TED HUSSEIN SECRETARY BOOKKEEPER 07/30/24 Lidocaine (LIDODERM 5% TOPICAL PATCH) 1 Patch Ph, 1 PATCH TOP DAILY for 30 Days, #30 PATCH 0 Refills Prov:MIAN ROMO SECRETARY BOOKKEEPER 06/02/24 Polyethylene Glycol 3350 (Miralax) 17 Gm Pow, 17 GM PO DAILY for 15 Days, #15 POW Prov:TED HUSSEIN SECRETARY BOOKKEEPER 05/03/24 Albuterol Sulfate (Albuterol Sulfate Hfa) 108 Mcg/Act Aer, 108 MCG IN BID PRN for 10 Days, #1 AER 0 Refills Prov:LILI LUNSFORD DO 12/01/22 Reported Medications Docusate Sodium (Docusate Sodium) 100 Mg Cap, 1 CAP PO BID for 30 Days, #60 07/03/24 Simvastatin (Simvastatin) 20 Mg Tab, 1 TAB PO DAILY for 90 Days, #90 07/03/24 Hydrocodone-Acetaminophen (Hydrocodone Bitartrate/AC 10-325 mg) 1 Tab Tab, 1 TAB PO Q6HR PRN for CHRONIC PAIN for 30 Days, #120 07/03/24 Potassium Chloride (Potassium Chloride ER) 10 Meq Tab, 1 TAB PO BID for 90 Days, #180 07/03/24 Paroxetine Hydrochloride (Paroxetine Hydrochloride) 20 Mg Tab, 1 TAB PO DAILY for 90 Days, #90 05/01/24 Tirzepatide (Mounjaro) 7.5 Mg/0.5 Ml Inj, 7.5 MG SC QWEEKLY for 28 Days, #2 10/18/23 Sitagliptin Phosphate (Januvia) 100 Mg Tab, 1 TAB PO DAILY 10/18/23 Clopidogrel Bisulfate (CLOPIDOGREL) 75 Mg Tab, 1 TAB PO DAILY 10/18/23 Furosemide (Furosemide) 40 Mg Tab, 1 TAB PO BID 10/18/23 Atorvastatin Calcium (ATORVASTATIN CALCIUM) 20 Mg Tab, 1 TAB PO DAILY 10/17/23 Cholecalciferol (Vitamin D-3 Super Strengt) 2,000 Unit Tab, 1 TAB PO DAILY 10/17/23 Gabapentin (Gabapentin) 300 Mg Cap, 1 CAP PO Q8HR for NEUROPATHIC PAIN for 30 Days, #90 10/17/23 Aspirin (Aspirin Low Dose) 81 Mg Tab, 1 TAB PO DAILY 10/17/23 Balsalazide Disodium (Balsalazide Disodium) 750 Mg Cap, 3 CAP PO BID for 30 Days, #180 10/17/23 Current Medications Current Medications Medications (Trade) Dose Ordered Sig/Damon Route PRN Reason Start Time Stop Time Status Last Admin Acetaminophen/ Hydrocodone Bitart ([place] 5/325MG Tab) 1 tab Q4HP PRN PO MODERATE PAIN (4-6 PAIN SCALE) 10/22/24 22:45 10/23/24 10:17 DC Ondansetron HCl (Zofran) 4 mg Q4HP PRN IV NAUSEA / VOMITING 10/22/24 22:45 Docusate Sodium (Colace Capsule) 100 mg BIDPRN PRN PO FOR CONSTIPATION 10/22/24 22:45 Acetaminophen (Tylenol Tablet) 650 mg Q6HP PRN PO PAIN SCALE 1-3 OR TEMP>100.4 10/22/24 22:45 Morphine Sulfate 2 mg Q4HPRN PRN IV SEVERE PAIN (7-10 PAIN SCALE) 10/22/24 22:45 10/23/24 16:43 Nitroglycerin (Ntrostat Sublingual) 0.4 mg Q5MINP PRN SL FOR CHEST PAIN 10/22/24 22:45 Morphine Sulfate 2 mg Q30M PRN IV FOR CHEST PAIN 10/22/24 22:45 Diagnostic Test (Pha) (Accu-Chek Comfort Curve T) 1 strip ACHS 10/23/24 07:00 10/23/24 16:42 Insulin Human Regular (InsuLIN R) HS SC 10/23/24 22:00 Insulin Human Regular (InsuLIN R) AC SC 10/23/24 07:00 10/23/24 16:57 Dextrose 50 ml UD PRN IV Blood Sugar LESS THAN 60 10/22/24 22:45 Aspirin (Ecotrin Enteric Coated Tablet) 81 mg DAILY PO 10/23/24 10:00 10/23/24 10:28 Atorvastatin Calcium (Lipitor) 20 mg DAILY PO 10/23/24 10:00 10/23/24 10:28 Baclofen (Liorisal Tablet) 5 mg Q8HP PRN PO FOR MUSCLE SPASM 10/22/24 22:45 Clopidogrel Bisulfate (Plavix) 75 mg DAILY PO 10/23/24 10:00 10/23/24 10:28 Furosemide (Lasix Tablet) 40 mg BID PO 10/23/24 10:00 10/23/24 10:28 Gabapentin (Neurontin Capsule) 300 mg Q8HR PO 10/23/24 06:00 10/23/24 15:05 Paroxetine HCl (Paxil Tablet) 20 mg DAILY PO 10/23/24 10:00 10/23/24 10:27 Ranolazine (Ranexa ER) 500 mg BID PO 10/23/24 10:00 10/23/24 10:27 Isosorbide Mononitrate (Imdur Er Tablet) 30 mg DAILY PO 10/23/24 10:00 Diltiazem HCl (Cardizem ER Capsule) 120 mg DAILY PO 10/23/24 10:00 10/23/24 10:27 Oxycodone/ Acetaminophen (Percocet 5/ 325MG Tablet) 2 tab Q6HP PRN PO MODERATE PAIN (4-6 PAIN SCALE) 10/23/24 10:15 Mesalamine (DELZICOL Delayed Release Capsule) 800 mg TID PO 10/23/24 10:15 10/23/24 15:05 Vital Signs Vital Signs Date Time Temp Pulse Resp B/P (MAP) Pulse Ox O2 Delivery O2 Flow Rate FiO2 10/23/24 17:13 61 18 97/67 10/23/24 17:00 99.4 92 99.4 10/23/24 14:18 Room Air* 0 21 Physical Exam Hemodynamically stable, no localizing sign Full physical examination deferred Labs/Diagnostic Data Labs Test 10/23/24 20:26 10/23/24 16:45 10/23/24 05:19 10/22/24 22:36 Range/Units POC Glucose 205 H 70-106 mg/dl White Blood Count 8.5 4.4-10.8 10^3/uL Red Blood Count 4.80 4.0-5.20 10^6/uL Hemoglobin 14.2 12.2-16.2 g/dL Hematocrit 41.9 36.0-46.0 % Mean Corpuscular Volume 87.4 80.0-100.0 fL Mean Corpuscular Hemoglobin 29.5 28.0-32.0 pg Mean Corpuscular Hemoglobin Concent 33.8 32.0-36.0 g/dL Red Cell Distribution Width 15.8 H 11.8-14.3 % Platelet Count 225 140-450 10^3/uL Mean Platelet Volume 8.6 6.9-10.8 fL Neutrophils (%) (Auto) 60.9 37.0-80.0 % Lymphocytes (%) (Auto) 29.5 10.0-50.0 % Monocytes (%) (Auto) 4.2 0.0-12.0 % Eosinophils (%) (Auto) 4.8 0.0-7.0 % Basophils (%) (Auto) 0.6 0.0-2.0 % Neutrophils # (Auto) 5.2 1.6-8.6 10 ^3/uL Lymphocytes # (Auto) 2.5 0.4-5.4 10 ^3/uL Monocytes # (Auto) 0.4 0-1.3 10 ^3/uL Eosinophils # (Auto) 0.4 0-0.8 10 ^3/uL Basophils # (Auto) 0 0-0.2 10 ^3/uL Nucleated Red Blood Cells 0.1 % Sodium Level 145 136-145 mmol/L Potassium Level 3.5 3.5-5.1 mmol/L Chloride Level 105 98-107 mmol/L Carbon Dioxide Level 30 20-31 mmol/L Anion Gap 10 5-15 Blood Urea Nitrogen 16 9-23 mg/dL Creatinine 1.18 H 0.550-1.02 mg/dL Glomerular Filtration Rate Calc 53 >90 mL/min BUN/Creatinine Ratio 13.6 10.0-20.0 Serum Glucose 164 H 74-106 mg/dL Calcium Level 10.6 H 8.7-10.4 mg/dL Total Bilirubin 0.4 0.2-1.0 mg/dL Aspartate Amino Transferase (AST) 10 L 13-40 U/L Alanine Aminotransferase (ALT) < 9 7-40 U/L Alkaline Phosphatase 123 H 46-116 U/L Total Protein 7.0 5.7-8.2 g/dL Albumin 4.7 3.2-4.8 g/dL Troponin I High Sensitivity < 3 L </=34 ng/L Test 10/22/24 20:20 10/22/24 19:40 Range/Units Urine Color Yellow Yellow Urine Clarity Turbid H Clear Urine pH 5.5 5.0-9.0 Urine Specific [place] 1.016 1.001-1.035 Urine Protein Negative Negative Urine Ketones Negative Negative Urine Blood Negative Negative /uL Urine Nitrite Negative Negative Urine Bilirubin Negative Negative Urine Urobilinogen Normal Negative mg/dL Urine Leukocyte Esterase 2+ Negative /uL Urine RBC 6 0 - 4 /hpf Urine Microscopic WBC 65 H 0-5 /HPF Urine Squamous Epithelial Cells Few <5 /hpf Urine Calcium Oxalate Crystals Few None Seen Urine Bacteria Few H None Seen /hpf Urine Hyaline Casts Mod 0 - 2 /lpf Urine Glucose Normal Normal mg/dL B-Type Natriuretic Peptide 7.90 0-100 pg/mL Problems(with codes): (1) Rectal bleeding (2) Diabetes (3) Obesity (4) CHEST PAIN NEC (5) INTERMED CORONARY SYND (6) Chest pain of unknown etiology Plan/Recommendation Plan At this time patient is underwent cardiac evaluation and management Patient currently is not medically stable for any colonoscopy procedure I will empirically put her on mesalamine 800 mg p.o. three times a day and Prot jeremy 40 mg p.o. daily We will check stool for occult blood C diff WBC bacterial culture; CRP Upon reviewing her records patient also had hepatitis-C antibody positive, we will check if she had treatment for hepatitis-C in the past Get CT scan of the abdomen pelvis with oral contrast only Plan discussed with: Other (None) ISRAEL FARAH MD Oct 23, 2024 20:58
[2024-10-24] VITALS (9 sets, daily range): BP systolic 89–111; BP diastolic 59–70; PULSE 59–69; RESP 16–96; TEMP 96.2–98.3; O2SAT 94–99
--- NOTE | 2024-10-24 06:44 | DVHPN2 ---
Progress Note - Dictate Date Seen: Oct 24, 2024 Medical Necessity Reason Pt with a Central, PICC or Fol: No vital signs Vital Sign Date Time Temp Pulse Resp B/P (MAP) Pulse Ox O2 Delivery O2 Flow Rate FiO2 10/24/24 06:20 96 16 111/70 10/24/24 05:00 98.1 96 98.1 10/23/24 20:00 Room Air* 0 21 Total Intake and Output 10/23/24 10/23/24 10/24/24 15:00 23:00 07:00 Intake Total 480 ml 600 ml 474 ml Balance 480 ml 600 ml 474 ml medications Current Medications Medications Dose Ordered Sig/Damon Route Start Time Stop Time Status Last Admin Dose Admin Ondansetron HCl 4 mg Q4HP PRN IV 10/22/24 22:45 Docusate Sodium 100 mg BIDPRN PRN PO 10/22/24 22:45 Acetaminophen 650 mg Q6HP PRN PO 10/22/24 22:45 Morphine Sulfate 2 mg Q4HPRN PRN IV 10/22/24 22:45 10/24/24 06:20 2 MG Nitroglycerin 0.4 mg Q5MINP PRN SL 10/22/24 22:45 Morphine Sulfate 2 mg Q30M PRN IV 10/22/24 22:45 Diagnostic Test (Pha) 1 strip ACHS 10/23/24 07:00 10/24/24 06:20 1 STRIP Insulin Human Regular HS SC 10/23/24 22:00 10/23/24 21:34 4 UNITS Insulin Human Regular AC SC 10/23/24 07:00 10/24/24 06:18 2 UNITS Dextrose 50 ml UD PRN IV 10/22/24 22:45 Aspirin 81 mg DAILY PO 10/23/24 10:00 10/23/24 10:28 81 MG Atorvastatin Calcium 20 mg DAILY PO 10/23/24 10:00 10/23/24 10:28 20 MG Baclofen 5 mg Q8HP PRN PO 10/22/24 22:45 Clopidogrel Bisulfate 75 mg DAILY PO 10/23/24 10:00 10/23/24 10:28 75 MG Furosemide 40 mg BID PO 10/23/24 10:00 10/23/24 21:10 40 MG Gabapentin 300 mg Q8HR PO 10/23/24 06:00 10/24/24 06:16 300 MG Paroxetine HCl 20 mg DAILY PO 10/23/24 10:00 10/23/24 10:27 20 MG Ranolazine 500 mg BID PO 10/23/24 10:00 10/23/24 21:09 500 MG Isosorbide Mononitrate 30 mg DAILY PO 10/23/24 10:00 Diltiazem HCl 120 mg DAILY PO 10/23/24 10:00 10/23/24 10:27 120 MG Oxycodone/ Acetaminophen 2 tab Q6HP PRN PO 10/23/24 10:15 Mesalamine 800 mg TID PO 10/23/24 22:00 10/24/24 06:16 800 MG laboratory and microbiology Laboratory Tests 10/23/24 05:19 Test 10/23/24 05:19 Range/Units Serum Glucose 164 H 74-106 mg/dL Assessment/Plan Patient is a 59-year-old female who presented to the hospital with 1 hour of chest discomfort. It started when she was sitting down. She mentions that she has been experiencing some chest discomfort going back for weeks. Cardiology is involved for cardiac aspects of care. She is known to our practice from previously admitted occasions and prior outside visits. It seems that she ran out of some of her antianginal medications awhile back. It is of note that she was in the hospital in July for comparative presentation. She had not have any outside visits since that admission. She also mentions that for the past few days she is experiencing bloody stool and dark stool. She does complain of occasional abdominal pain. Does have history of ulcerative colitis/Crohn disease. She also had C diff colitis few months back. During earlier admission in June/2024, the patient did have some chest pain with abnormal troponin and was found to have non-STEMI. Cardiac catheterization at that point revealed multivessel coronary artery disease and the patient was sent to [place] for the suggested CABG surgery. It seems that in [place] they did not do the CABG and the patient had only 1 stent. Later the patient was discharged home from [place]. In the middle of July patient came back with chest discomfort to our facility and with diagnosis of unstable angina was sent back to [place]. In [place], the patient again had another stent. I had an opportunity to talk to the shuttle repairer in [place]. It seems that during the 1st admission to [facility], they did put 1 stent in LAD. During the 2nd admission they put another stent in circumflex. It is of note that the patient did have LAD with trifurcation with disease in all of them. Reportedly (as per shuttle repairer in [place]) LAD stent has resulted in pinching of the diagonals. Patient mentions compliance with aspirin/Plavix. Not in acute distress. No JVD. Mucosa is pink and dry. No carotid bruit. Lungs are clear to auscultation. Not using accessory muscles of breathing. Cardiac: Regular, no thrills/gallop. Abdomen is soft. Lower abdominal tenderness can be elicited. There is no rebound. Bowel sound is positive There was no gross mass/hepatomegaly. Extremities do not reveal edema. Dorsalis pedis is 2+ bilateral. 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 She has had kidney stones/hydronephrosis/hydroureter before. Uses a walker for ambulation (secondary to old CVA). Patient was found to have multivessel coronary artery disease (left heart catheterization of July 09, 2024). On July 12 2024, the patient was sent to higher level of care ([place]) for possible CABG surgery. Patient ended up having 1 stent in LAD and CABG was not performed. At next presentation, patient was sent back to [place] and had another stent (this time in LCX). Reportedly the patient does have pinching of diagonals. Echocardiogram of December 16, 2022 (performed in [facility]) revealed ejection fraction of 60%, mild TR and right ventricular systolic pressure of 27 mm Hg. Echocardiogram of October 18, 2023 reported ejection fraction 55-60%, mild MR/TR and right ventricular systolic pressure of 25 mm Echocardiogram of May 05, 2024 revealed ejection fraction of 50-55%, normal diastolic, trace MR/TR and right ventricular systolic pressure of 28 mm Hg Echocardiogram of July 05, 2024 had revealed ejection fraction of 40%, trace MR/TR and right ventricular systolic pressure of 30 mm Hg Echocardiogram of July 29, 2024 revealed ejection fraction of 50-55%, no wall motion abnormality, trace mitral regurgitation, no tricuspid regurgitation. As there was no good tricuspid regurgitation jet, right ventricular systolic pressure could not be estimated Nuclear stress test of January 03, 2022 (performed as outpatient) revealed ejection fraction of 80% and no evidence for ischemia/scar. Left heart catheterization of July 09 2024 had revealed triple-vessel coronary artery disease Hemoglobin: 13.7 - 14.2 Creatinine: 1.25 - 1.18 Potassium: 3.7 - 3.5 Troponin (high sensitive): <3 - <3 Stool OB: negative Chest x-ray revealed: Frontal chest radiograph demonstrates no acute osseous or superficial soft tissue abnormalities. The trachea is midline. The cardiac silhouette and mediastinum are within normal limits. No pneumothorax, pleural effusions, or consolidations. EKG reveals sinus rhythm with nonspecific ST-T changes Tele reveals sinus rhythm Patient is a 59-year-old female who presents with atypical chest discomfort and generalized weakness. Does have history of coronary artery disease. Has had repeated ischemic workups recently. Is on dual antiplatelet therapy. Has not been compliant with the suggested antianginal therapy which could have contributed to the clinical picture. Did not come for outside cardiology visits since last admission. High sensitive troponin has been negative. Acute coronary syndrome is not considered at this point. She also experienced some abdominal pain and bloody bowel movement with dark stool. The patient does have history of inflammatory bowel disease. Did have non-STEMI in early July. Was sent to [facility] for possible CABG as she was found to have multivessel coronary artery disease. Instead of CABG the patient was given 1 stent (in LAD which resulted in pinching of diagonals). During the next presentation, the patient was sent back to [place] and ended up having another stent, this time in LCX. To continue aspirin/Plavix. ACS is not considered at this point. We will restart antianginal therapy. Patient was counseled to be compliant with medication and followups. Chest pain Coronary artery disease Triple-vessel coronary artery disease Status post PCI (drug-eluting stent deployment of LAD and LCX) History of old CVA with left hemiparesis History of Crohn disease/ulcerative colitis Inflammatory Bowel Disease Constipation Hyperlipidemia Status post carotid endarterectomy Diverticular disease, history of Noncompliance with medication and followups Cardiac suggestion for management: Manage in tele Follow-up electrolytes and kidney function tests and correct abnormalities. Keep potassium above 4 and magnesium above 2 Aspirin/Plavix, continue Imdur, long-actin mg daily Ranolazine: 500 mg p.o. b.i.d. Diltiazem-ER: 120 mg daily There is no indication to repeat any ischemic workup at this point Evaluation and management of abdominal pain/recent GI bleeding as per primary team/GI Cardiac harrison, is stable and can be followed as outpatient Lifestyle and risk factor modification is advised A total of 75 minutes was spent reviewing the patient record, examining the patient, making a diagnostic and therapeutic plan, discussing this plan with medical personnel, following up on diagnostic studies and following the patient for clinical stability excluding any and all procedures. At least 50% of this time was spent in direct, [id number] contact. Thank you for allowing me to participate in this patient's care. Further recommendations will depend on patient's clinical course. Please do not hesitate to contact me if you have any questions or concerns. This medical document was created using electronic medical record system with [employer] computerized dictation system. Although this document has been carefully reviewed, there may still be some phonetic and typographical errors. These areas are purely typographical due to the imperfection of the software programs, and do not reflect any compromise in the patient's medical care Plan discussed with: Patient, Other (nurse) BALTAZAR SOMMERS MD Oct 24, 2024 06:44
--- NOTE | 2024-10-24 13:33 | DVH ---
Indication: abdominal pain Technique: CT axial images of the abdomen and pelvis are obtained without contrast. Coronal and sagit janeth reformats were obtained. Radiation Dose Information: CTDI volume is 24 mGy. Dose-length product is 1278 mGy*cm Comparison: CT CT AB PEL WO CON-NO ORAL OR IV on DOS: 07/29/24, FINDINGS: There is limited interpretation of the abdomen and pelvis without administration of intravenous contr ast. The lung bases demonstrate atelectasis. Coronary artery calcification disease. Adrenal glands, spleen and pancreas unremarkable in shape. Liver unremarkable in shape. Kidneys demonstrate no hydronephrosis. Nonobstructing left renal calculus measuring 4 mm Punctate nonobstructing right renal calculi. 2 mm. Stomach is partially distended. Small bowel loops are normal in caliber. Colonic diverticula. Moderate volume stool in the colon. Normal appendix. Abdominal aortic atherosclerotic disease. Bladder partially distended. No free pelvic fluid. Left anterior abdominal wall hyperdensity measuring 3.7 x 3.3 cm with surrounding stranding. Calcifie d uterine leiomyomas. [id number] bilateral sacroiliac degenerative joint disease. [id number] thoracolumbar dege nerative disc disease and facet hypertrophic changes. IMPRESSION: Limited evaluation without contrast. Nonobstructing bilateral renal calculi. Colonic diverticular disease. Moderate volume stool in the colon. Atherosclerotic, coronary artery calcification disease. Left anterior abdominal wall hyperdense lesion measuring 3.7 x 3.3 cm with surrounding stranding. Thi s is of indeterminate etiology. Correlate clinically. Differential considerations would include hem atoma, fatty infarction infected collection / abscess , soft tissue mass/neoplasm. Overall this appe ars more pronounced than the prior examination. Uterine leiomyomas. Other findings as described.
[2024-10-24] MEDS: OMNIPAQUE 12mg/ml 500ml ORAL SOLUTION PO ONE (15:28)
--- NOTE | 2024-10-24 15:58 | DVHPN2 ---
Progress Note - Dictate Date Seen: Oct 24, 2024 Medical Necessity Reason Pt with a Central, PICC or Fol: No Subjective Patient seen at bedside resting comfortably She complains of lower suprapubic pain No GI bleeding today Patient had a small bowel movement today Last colonoscopy with a gastro group about a year and a half ago had shown some ulcers in her colon vital signs Vital Sign Date Time Temp Pulse Resp B/P (MAP) Pulse Ox O2 Delivery O2 Flow Rate FiO2 10/24/24 15:27 61 19 113/52 10/24/24 13:00 96.2 94 96.2 10/24/24 08:20 Room Air* 0 21 Total Intake and Output 10/23/24 10/23/24 10/24/24 15:00 23:00 07:00 Intake Total 480 ml 600 ml 474 ml Balance 480 ml 600 ml 474 ml medications Current Medications Medications Dose Ordered Sig/Damon Route Start Time Stop Time Status Last Admin Dose Admin Ondansetron HCl 4 mg Q4HP PRN IV 10/22/24 22:45 Docusate Sodium 100 mg BIDPRN PRN PO 10/22/24 22:45 Acetaminophen 650 mg Q6HP PRN PO 10/22/24 22:45 Morphine Sulfate 2 mg Q4HPRN PRN IV 10/22/24 22:45 10/24/24 14:46 2 MG Nitroglycerin 0.4 mg Q5MINP PRN SL 10/22/24 22:45 Morphine Sulfate 2 mg Q30M PRN IV 10/22/24 22:45 Diagnostic Test (Pha) 1 strip ACHS 10/23/24 07:00 10/24/24 12:06 1 STRIP Insulin Human Regular HS SC 10/23/24 22:00 10/23/24 21:34 4 UNITS Insulin Human Regular AC SC 10/23/24 07:00 10/24/24 12:18 3 UNITS Dextrose 50 ml UD PRN IV 10/22/24 22:45 Aspirin 81 mg DAILY PO 10/23/24 10:00 10/24/24 10:24 81 MG Atorvastatin Calcium 20 mg DAILY PO 10/23/24 10:00 10/24/24 10:24 20 MG Baclofen 5 mg Q8HP PRN PO 10/22/24 22:45 Clopidogrel Bisulfate 75 mg DAILY PO 10/23/24 10:00 10/24/24 10:24 75 MG Furosemide 40 mg BID PO 10/23/24 10:00 10/23/24 21:10 40 MG Gabapentin 300 mg Q8HR PO 10/23/24 06:00 10/24/24 14:21 300 MG Paroxetine HCl 20 mg DAILY PO 10/23/24 10:00 10/24/24 10:24 20 MG Ranolazine 500 mg BID PO 10/23/24 10:00 10/24/24 10:24 500 MG Isosorbide Mononitrate 30 mg DAILY PO 10/23/24 10:00 Diltiazem HCl 120 mg DAILY PO 10/23/24 10:00 10/23/24 10:27 120 MG Oxycodone/ Acetaminophen 2 tab Q6HP PRN PO 10/23/24 10:15 Mesalamine 800 mg TID PO 10/23/24 22:00 10/24/24 14:21 800 MG Metronidazole 100 ml @ 100 mls/hr Q8HR IV 10/24/24 14:00 10/24/24 14:21 100 MLS/HR Ceftriaxone Sodium 50 ml @ 100 mls/hr DAILY@09 IV 10/25/24 09:00 objective General Appeara: Well developed, Well nourished, Obese Head Exam: Normal inspection Neck Exam: Normal inspection Eye Exam: bilateral eye PERRL Mouth: Normal Inspection Pulmonary/Respiratory: Lungs clear Cardiovascular/Chest: Normal inspection, Regular rate Peripheral Pulses: 2+ carotid (R), 2+ carotid (L), 2+ femoral (R), 2+ femoral (L), 2+ dorsalis pedis (R), 2+ dorsalis pedis (L), 2+ Radial (R), 2+ Radial (L) Abdominal Exam: Normal bowel sounds, Soft Neuro/Mental St: Alert, Oriented Appearance: Appropriate appearance Eye contact/ Speech: Cooperative laboratory and microbiology Laboratory Tests 10/23/24 05:19 Test 10/23/24 05:19 Range/Units Serum Glucose 164 H 74-106 mg/dL CT SCAN ABD PELVIS IMPRESSION: Limited evaluation without contrast. Nonobstructing bilateral renal calculi. Colonic diverticular disease. Moderate volume stool in the colon. Atherosclerotic, coronary artery calcification disease. Left anterior abdominal wall hyperdense lesion measuring 3.7 x 3.3 cm with surrounding stranding. This is of indeterminate etiology. Correlate clinically. Differential considerations would include hematoma, fatty infarction infected collection / abscess , soft tissue mass/neoplasm. Overall this appears more pronounced than the prior examination. Uterine leiomyomas. Other findings as described. Problems(with codes): (1) CHEST PAIN NEC (2) Obesity (3) Rectal bleeding (4) Intractable abdominal pain (5) Chronic ulcerative colitis Prognosis Plan Continue IV fluid hydration Continue to monitor labs IV antibiotics; pain control I started her on oral mesalamine Patient does not appear to need urgent colonoscopy she has been advised outpatient follow up in my office for ongoing management of her ulcerative colitis Based on CT findings of a possible left anterior abdominal wall hyperdense area with stranding I believe we can get a surgical consult( this is the area that the patient is complaining of abdominal pain in) Discussed with surgical consult on-call Dr Koenig Plan discussed with: Patient, Other (Dr Koenig) ISRAEL FARAH MD Oct 24, 2024 15:58
--- NOTE | 2024-10-24 17:46 | DVHPN2 ---
Progress Note Date Seen: Oct 24, 2024 Medical Necessity Reason Pt with a Central, PICC or Fol: No Subjective Review of Systems: CVS:Normal, RESPIRATORY:Normal, GI:Normal, NEURO:Normal Objective vital signs Vital Sign Date Time Temp Pulse Resp B/P (MAP) Pulse Ox O2 Delivery O2 Flow Rate FiO2 10/24/24 15:27 61 19 113/52 10/24/24 13:00 96.2 94 96.2 10/24/24 08:20 Room Air* 0 21 Total Intake and Output 10/23/24 10/23/24 10/24/24 15:00 23:00 07:00 Intake Total 480 ml 600 ml 474 ml Balance 480 ml 600 ml 474 ml medications Current Medications Medications Dose Ordered Sig/Damon Route Start Time Stop Time Status Last Admin Dose Admin Ondansetron HCl 4 mg Q4HP PRN IV 10/22/24 22:45 Docusate Sodium 100 mg BIDPRN PRN PO 10/22/24 22:45 Acetaminophen 650 mg Q6HP PRN PO 10/22/24 22:45 Morphine Sulfate 2 mg Q4HPRN PRN IV 10/22/24 22:45 10/24/24 14:46 2 MG Nitroglycerin 0.4 mg Q5MINP PRN SL 10/22/24 22:45 Morphine Sulfate 2 mg Q30M PRN IV 10/22/24 22:45 Diagnostic Test (Pha) 1 strip ACHS 10/23/24 07:00 10/24/24 17:28 1 STRIP Insulin Human Regular HS SC 10/23/24 22:00 10/23/24 21:34 4 UNITS Insulin Human Regular AC SC 10/23/24 07:00 10/24/24 17:34 2 UNITS Dextrose 50 ml UD PRN IV 10/22/24 22:45 Aspirin 81 mg DAILY PO 10/23/24 10:00 10/24/24 10:24 81 MG Atorvastatin Calcium 20 mg DAILY PO 10/23/24 10:00 10/24/24 10:24 20 MG Baclofen 5 mg Q8HP PRN PO 10/22/24 22:45 Clopidogrel Bisulfate 75 mg DAILY PO 10/23/24 10:00 10/24/24 10:24 75 MG Furosemide 40 mg BID PO 10/23/24 10:00 10/23/24 21:10 40 MG Gabapentin 300 mg Q8HR PO 10/23/24 06:00 10/24/24 14:21 300 MG Paroxetine HCl 20 mg DAILY PO 10/23/24 10:00 10/24/24 10:24 20 MG Ranolazine 500 mg BID PO 10/23/24 10:00 10/24/24 10:24 500 MG Isosorbide Mononitrate 30 mg DAILY PO 10/23/24 10:00 Diltiazem HCl 120 mg DAILY PO 10/23/24 10:00 10/23/24 10:27 120 MG Oxycodone/ Acetaminophen 2 tab Q6HP PRN PO 10/23/24 10:15 Mesalamine 800 mg TID PO 10/23/24 22:00 10/24/24 14:21 800 MG Metronidazole 100 ml @ 100 mls/hr Q8HR IV 10/24/24 14:00 10/24/24 14:21 100 MLS/HR Ceftriaxone Sodium 50 ml @ 100 mls/hr DAILY@09 IV 10/25/24 09:00 Examination: HEENT:Normal, LUNGS:Normal, CVS:Normal, ABDOMEN:Normal, SKIN:Normal, NEURO:Normal laboratory and microbiology Laboratory Tests 10/23/24 05:19 Test 10/23/24 05:19 Range/Units Serum Glucose 164 H 74-106 mg/dL Labs and/or images reviewed: Labs reviewed by me, Image(s) reviewed by me Problem List/Assessment/Plan Problem List/Assessment/Plan . Unstable angina Monitor, start antianginal 2. Rectal bleeding Monitor, send stool OB, daily labs 3. CAD s/p stent x 2 Monitor, PPI 4. HLD Monitor, restart DAPT 5. Hx of ulcerative colitis Monitor, GI consult 6. Hx of CVA with residual deficits Monitor Assessment/Plan Subjective Patient is awake and alert. Objective Patient states she no longer has chest pain she sts her pain is more in her abdomen and most likely related to her ulcerative colitis and Crohns. Patient states that she does have a history of external hemorrhoids. Hemoglobin remains stable. Patient was seen by cardiology. She was continued on her dual antiplatelet therapy. Patient has a history of recent cardiac stents from [facility]. Patient continues to have abdominal pain to left lower quadrant and CT scan is showing hyperdense area to LLQ. Per GI notes will obtain surgical consult. patient was placed on IV Rocephin and IV flagl for now. Stool occult blood is negative and hgb is stable at 14.2 Plan Continue current treatment. Cardiac harrison patient appears to be stable. continue with IV abx, obtain surgical consult. Monitor daily labs. Monitor for any active signs or symptoms of bleeding. Plan discussed with: Patient My Orders My Orders Orders - TAMI ROOT Procedure Category Date Status Time Ct Ab Pel With Oral CT 10/24/24 Resulted Con Only 10:23 Metronidazole PHA 10/24/24 In Process 500mg/100ml (Flagyl 14:00 Ceftriaxone 1gm/50ml PHA 10/25/24 In Process D5w (Rocephin) 09:00 Date of Service: Oct 24, 2024 Billing Provider: CAL MARTINO MD Common Visit Codes: [id number] INP/OBS CARE (MOD) TAMI ROOT Oct 24, 2024 17:46
[2024-10-24 19:30] LABS: Hematocrit 39.1 % (36.0-46.0); Hemoglobin 13.2 g/dL (12.2-16.2); Mean Corpuscular Hemoglobin 29.8 pg (28.0-32.0); Mean Corpuscular Volume 88.4 fL (80.0-100.0); Nucleated Red Blood Cells % 0.1 %
[2024-10-24 19:40] LABS: Chloride 102 mmol/L (98-107); Potassium 3.8 mmol/L (3.5-5.1); Sodium 139 mmol/L (136-145)
[2024-10-24 19:41] LABS: Anion Gap 9 (5-15); Calcium 9.9 mg/dL (8.7-10.4); Carbon Dioxide 28 mmol/L (20-31)
[2024-10-24 19:46] LABS: BUN/Creatinine Ratio 12.4 (10.0-20.0); Blood Urea Nitrogen 15 mg/dL (9-23)
[2024-10-24 19:47] LABS: Glucose 144 mg/dL (74-106)
[2024-10-24 19:51] LABS: INR 0.94 (0.9-1.15); Partial Thromboplastin Time 24.8 SEC (24.5-34.5); Prothrombin Time 10.0 sec (9.3-11.8)
[2024-10-24] MEDS: OXYCODONE W/ ACETAMINOPHEN 5/325MG TABLET PO PRN (21:52)
[2024-10-25] VITALS (8 sets, daily range): BP systolic 100–130; BP diastolic 62–78; PULSE 62–85; RESP 16–18; TEMP 97.3–98.1; O2SAT 91–100
[2024-10-25] MEDS: LACTATED RINGER'S 1,000 ML IV SCH
--- NOTE | 2024-10-25 06:46 | DVHPN2 ---
Progress Note - Dictate Date Seen: Oct 25, 2024 Medical Necessity Reason Pt with a Central, PICC or Fol: No vital signs Vital Sign Date Time Temp Pulse Resp B/P (MAP) Pulse Ox O2 Delivery O2 Flow Rate FiO2 10/25/24 05:34 71 16 105/67 10/25/24 05:00 97.9 96 97.9 10/24/24 20:00 Room Air* 0 21 Total Intake and Output 10/24/24 10/24/24 10/25/24 15:00 23:00 07:00 Intake Total 1500 ml 800 ml Balance 1500 ml 800 ml medications Current Medications Medications Dose Ordered Sig/Damon Route Start Time Stop Time Status Last Admin Dose Admin Ondansetron HCl 4 mg Q4HP PRN IV 10/22/24 22:45 Docusate Sodium 100 mg BIDPRN PRN PO 10/22/24 22:45 Acetaminophen 650 mg Q6HP PRN PO 10/22/24 22:45 Morphine Sulfate 2 mg Q4HPRN PRN IV 10/22/24 22:45 10/25/24 05:34 2 MG Nitroglycerin 0.4 mg Q5MINP PRN SL 10/22/24 22:45 Morphine Sulfate 2 mg Q30M PRN IV 10/22/24 22:45 Diagnostic Test (Pha) 1 strip ACHS 10/23/24 07:00 10/25/24 06:02 1 STRIP Insulin Human Regular HS SC 10/23/24 22:00 10/24/24 21:55 3 UNITS Insulin Human Regular AC SC 10/23/24 07:00 10/24/24 17:34 2 UNITS Dextrose 50 ml UD PRN IV 10/22/24 22:45 Aspirin 81 mg DAILY PO 10/23/24 10:00 10/24/24 10:24 81 MG Atorvastatin Calcium 20 mg DAILY PO 10/23/24 10:00 10/24/24 10:24 20 MG Baclofen 5 mg Q8HP PRN PO 10/22/24 22:45 Clopidogrel Bisulfate 75 mg DAILY PO 10/23/24 10:00 10/24/24 10:24 75 MG Furosemide 40 mg BID PO 10/23/24 10:00 10/24/24 21:51 40 MG Gabapentin 300 mg Q8HR PO 10/23/24 06:00 10/25/24 05:33 300 MG Paroxetine HCl 20 mg DAILY PO 10/23/24 10:00 10/24/24 10:24 20 MG Ranolazine 500 mg BID PO 10/23/24 10:00 10/24/24 21:50 500 MG Isosorbide Mononitrate 30 mg DAILY PO 10/23/24 10:00 Diltiazem HCl 120 mg DAILY PO 10/23/24 10:00 10/23/24 10:27 120 MG Oxycodone/ Acetaminophen 2 tab Q6HP PRN PO 10/23/24 10:15 10/24/24 21:52 2 TAB Mesalamine 800 mg TID PO 10/23/24 22:00 10/25/24 05:33 800 MG Metronidazole 100 ml @ 100 mls/hr Q8HR IV 10/24/24 14:00 10/25/24 05:32 100 MLS/HR Ceftriaxone Sodium 50 ml @ 100 mls/hr DAILY@09 IV 10/25/24 09:00 Lactated Ringer's 1,000 ml @ 75 mls/hr [id number] IV 10/25/24 00:00 10/25/24 00:19 75 MLS/HR laboratory and microbiology Laboratory Tests 10/24/24 18:45 Test 10/24/24 18:45 Range/Units Serum Glucose 144 H 74-106 mg/dL Assessment/Plan Assessment/Plan Patient is a 59-year-old female who presented to the hospital with 1 hour of chest discomfort. It started when she was sitting down. She mentions that she has been experiencing some chest discomfort going back for weeks. Cardiology is involved for cardiac aspects of care. She is known to our practice from previously admitted occasions and prior outside visits. It seems that she ran out of some of her antianginal medications awhile back. It is of note that she was in the hospital in July for comparative presentation. She had not have any outside visits since that admission. She also mentions that for the past few days she is experiencing bloody stool and dark stool. She does complain of occasional abdominal pain. Does have history of ulcerative colitis/Crohn disease. She also had C diff colitis few months back. During earlier admission in June/2024, the patient did have some chest pain with abnormal troponin and was found to have non-STEMI. Cardiac catheterization at that point revealed multivessel coronary artery disease and the patient was sent to [place] for the suggested CABG surgery. It seems that in [place] they did not do the CABG and the patient had only 1 stent. Later the patient was discharged home from [place]. In the middle of July patient came back with chest discomfort to our facility and with diagnosis of unstable angina was sent back to [place]. In [place], the patient again had another stent. I had an opportunity to talk to the straight line press setter in [place]. It seems that during the 1st admission to [place], they did put 1 stent in LAD. During the 2nd admission they put another stent in circumflex. It is of note that the patient did have LAD with trifurcation with disease in all of them. Reportedly (as per straight line press setter in [place]) LAD stent has resulted in pinching of the diagonals. Patient mentions compliance with aspirin/Plavix. Not in acute distress. No JVD. Mucosa is pink and dry. No carotid bruit. Lungs are clear to auscultation. Not using accessory muscles of breathing. Cardiac: Regular, no thrills/gallop. Abdomen is soft. Lower abdominal tenderness can be elicited. There is no rebound. Bowel sound is positive There was no gross mass/hepatomegaly. Extremities do not reveal edema. Dorsalis pedis is 2+ bilateral. 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 She has had kidney stones/hydronephrosis/hydroureter before. Uses a walker for ambulation (secondary to old CVA). Patient was found to have multivessel coronary artery disease (left heart catheterization of July 09, 2024). On July 12 2024, the patient was sent to higher level of care ([place]) for possible CABG surgery. Patient ended up having 1 stent in LAD and CABG was not performed. At next presentation, patient was sent back to [place] and had another stent (this time in LCX). Reportedly the patient does have pinching of diagonals. Echocardiogram of December 16, 2022 (performed in [facility]) revealed ejection fraction of 60%, mild TR and right ventricular systolic pressure of 27 mm Hg. Echocardiogram of October 18, 2023 reported ejection fraction 55-60%, mild MR/TR and right ventricular systolic pressure of 25 mm Echocardiogram of May 05, 2024 revealed ejection fraction of 50-55%, normal diastolic, trace MR/TR and right ventricular systolic pressure of 28 mm Hg Echocardiogram of July 05, 2024 had revealed ejection fraction of 40%, trace MR/TR and right ventricular systolic pressure of 30 mm Hg Echocardiogram of July 29, 2024 revealed ejection fraction of 50-55%, no wall motion abnormality, trace mitral regurgitation, no tricuspid regurgitation. As there was no good tricuspid regurgitation jet, right ventricular systolic pressure could not be estimated Nuclear stress test of January 03, 2022 (performed as outpatient) revealed ejection fraction of 80% and no evidence for ischemia/scar. Left heart catheterization of July 09 2024 had revealed triple-vessel coronary artery disease Hemoglobin: 13.7 - 14.2 Creatinine: 1.25 - 1.18 Potassium: 3.7 - 3.5 Troponin (high sensitive): <3 - <3 Stool OB: negative Chest x-ray revealed: Frontal chest radiograph demonstrates no acute osseous or superficial soft tissue abnormalities. The trachea is midline. The cardiac silhouette and mediastinum are within normal limits. No pneumothorax, pleural effusions, or consolidations. EKG reveals sinus rhythm with nonspecific ST-T changes Tele reveals sinus rhythm Patient is a 59-year-old female who presents with atypical chest discomfort and generalized weakness. Does have history of coronary artery disease. Has had repeated ischemic workups recently. Is on dual antiplatelet therapy. Has not been compliant with the suggested antianginal therapy which could have contributed to the clinical picture. Did not come for outside cardiology visits since last admission. High sensitive troponin has been negative. Acute coronary syndrome is not considered at this point. She also experienced some abdominal pain and bloody bowel movement with dark stool. The patient does have history of inflammatory bowel disease. Did have non-STEMI in early July. Was sent to [place] for possible CABG as she was found to have multivessel coronary artery disease. Instead of CABG the patient was given 1 stent (in LAD which resulted in pinching of diagonals). During the next presentation, the patient was sent back to [place] and ended up having another stent, this time in LCX. To continue aspirin/Plavix. ACS is not considered at this point. We will restart antianginal therapy. Patient was counseled to be compliant with medication and followups. Chest pain Coronary artery disease Triple-vessel coronary artery disease Status post PCI (drug-eluting stent deployment of LAD and LCX) History of old CVA with left hemiparesis History of Crohn disease/ulcerative colitis Inflammatory Bowel Disease Constipation Hyperlipidemia Status post carotid endarterectomy Diverticular disease, history of Noncompliance with medication and followups Cardiac suggestion for management: Manage in tele Follow-up electrolytes and kidney function tests and correct abnormalities. Keep potassium above 4 and magnesium above 2 Aspirin/Plavix, continue Imdur, long-actin mg daily Ranolazine: 500 mg p.o. b.i.d. Diltiazem-ER: 120 mg daily There is no indication to repeat any ischemic workup at this point Evaluation and management of abdominal pain/recent GI bleeding as per primary team/GI Recognizing urgent need for excisional biopsy involving potential neoplasm (LLQ abdominal wall) with most recent PCI > 3 months, may consider holding concurrent Plavix (for now). Proceed with Aspirin 81mg daily during the interim. Risks involved with holding Plavix therapy were discussed with the patient which she verbalized understanding and had agreed given indication. Cardiac harrison, is stable and can be followed as outpatient Lifestyle and risk factor modification is advised A total of 75 minutes was spent reviewing the patient record, examining the patient, making a diagnostic and therapeutic plan, discussing this plan with medical personnel, following up on diagnostic studies and following the patient for clinical stability excluding any and all procedures. At least 50% of this time was spent in direct, [id number] contact. Thank you for allowing me to participate in this patient's care. Further recommendations will depend on patient's clinical course. Please do not hesitate to contact me if you have any questions or concerns. This medical document was created using electronic medical record system with [employer] dictation system. Although this document has been carefully reviewed, there may still be some phonetic and typographical errors. These areas are purely typographical due to the imperfection of the software programs, and do not reflect any compromise in the patient's medical care Plan discussed with: Patient, Other (nurse) Plan discussed with: Patient (Patient and primary rn ) UYEN MÁRQUEZ [facility] Oct 25, 2024 06:46
[2024-10-25] MEDS: cefTRIAXone 1GM/50ML D5W 50 ML IV SCH (10:49)
--- NOTE | 2024-10-25 11:08 | DVHINCON2 ---
Date of service: Oct 25, 2024 History of Present Illness 59-year-old female with a history of multiple medical problems admitted secondary to chest pain however also complaining of left lower quadrant abdominal pain for the past week. Patient feels a mass in her left abdominal wall and thinks the pain is from this area. Patient denies any recent history of trauma to this area. Past Medical History CAD, CVA, DM, HLD, [place] Past Surgical History No recent surgeries Family History: FH: breast cancer G8 SISTER FH: cancer FH: liver cancer G8 MOTHER, , Cause: Liver cancer Family history: Alzheimer's disease G8 MOTHER, , Cause: Liver cancer, Onset:Unknown Family history: Cardiovascular disease G8 FATHER, , Cause: CHF (congestive heart failure), Onset:Unknown Family history: Diabetes mellitus G8 BROTHER, Onset:Unknown Thyroid disease 19 CHILD Thyroid disease 19 CHILD Family History Noncontributory Social History Denies alcohol, tobacco, IV drug use Allergies: Coded Allergies: Latex (Verified Allergy, Mild, 06/02/24) INCLUDING TAPE, BROWN AND CLEAR TAPE Penicillins (Verified Allergy, Unknown, 07/30/24) Procaine (Verified Allergy, Unknown, 03/12/14) Home Meds Active Scripts Hydrocodone-Acetaminophen (Hydrocodone Bitartrate/AC 5-325 mg) 1 Tab Tab, 1 TAB PO Q8HP PRN for 5 Days, #15 TAB Prov:SEAN ZEPEDA MD 09/30/24 Ranolazine (Ranolazine ER) 500 Mg Tab, 500 MG PO BID for 30 Days, #60 TAB Prov:TED HUSSEIN NP 07/30/24 Baclofen (Baclofen) 10 Mg Tab, 5 MG PO Q8HP PRN for 7 Days, #21 TAB Prov:TED HUSSEIN NP 07/30/24 Isosorbide Mononitrate (Isosorbide Mononitrate Er) 30 Mg Tab, 1 TAB PO DAILY, #30 TAB 5 Refills Prov:TED HUSSEIN NP 07/30/24 Lidocaine (LIDODERM 5% TOPICAL PATCH) 1 Patch Ph, 1 PATCH TOP DAILY for 30 Days, #30 PATCH 0 Refills Prov:MIAN ROMO NP 06/02/24 Polyethylene Glycol 3350 (Miralax) 17 Gm Pow, 17 GM PO DAILY for 15 Days, #15 POW Prov:TED HUSSEIN AUGER MACHINE OFFBEARER 05/03/24 Albuterol Sulfate (Albuterol Sulfate Hfa) 108 Mcg/Act Aer, 108 MCG IN BID PRN for 10 Days, #1 AER 0 Refills Prov:LILI LUNSFORD DO 12/01/22 Reported Medications Docusate Sodium (Docusate Sodium) 100 Mg Cap, 1 CAP PO BID for 30 Days, #60 07/03/24 Simvastatin (Simvastatin) 20 Mg Tab, 1 TAB PO DAILY for 90 Days, #90 07/03/24 Hydrocodone-Acetaminophen (Hydrocodone Bitartrate/AC 10-325 mg) 1 Tab Tab, 1 TAB PO Q6HR PRN for CHRONIC PAIN for 30 Days, #120 07/03/24 Potassium Chloride (Potassium Chloride ER) 10 Meq Tab, 1 TAB PO BID for 90 Days, #180 07/03/24 Paroxetine Hydrochloride (Paroxetine Hydrochloride) 20 Mg Tab, 1 TAB PO DAILY for 90 Days, #90 05/01/24 Tirzepatide (Mounjaro) 7.5 Mg/0.5 Ml Inj, 7.5 MG SC QWEEKLY for 28 Days, #2 10/18/23 Sitagliptin Phosphate (Januvia) 100 Mg Tab, 1 TAB PO DAILY 10/18/23 Clopidogrel Bisulfate (CLOPIDOGREL) 75 Mg Tab, 1 TAB PO DAILY 10/18/23 Furosemide (Furosemide) 40 Mg Tab, 1 TAB PO BID 10/18/23 Atorvastatin Calcium (ATORVASTATIN CALCIUM) 20 Mg Tab, 1 TAB PO DAILY 10/17/23 Cholecalciferol (Vitamin D-3 Super Strengt) 2,000 Unit Tab, 1 TAB PO DAILY 10/17/23 Gabapentin (Gabapentin) 300 Mg Cap, 1 CAP PO Q8HR for NEUROPATHIC PAIN for 30 Days, #90 10/17/23 Aspirin (Aspirin Low Dose) 81 Mg Tab, 1 TAB PO DAILY 10/17/23 Balsalazide Disodium (Balsalazide Disodium) 750 Mg Cap, 3 CAP PO BID for 30 Days, #180 10/17/23 Current Medications Current Medications Medications (Trade) Dose Ordered Sig/Damon Route PRN Reason Start Time Stop Time Status Last Admin Metronidazole 100 ml @ 100 mls/hr Q8HR IV 10/24/24 14:00 10/25/24 05:32 Ceftriaxone Sodium 50 ml @ 100 mls/hr DAILY@09 IV 10/25/24 09:00 10/25/24 10:49 Lactated Ringer's 1,000 ml @ 75 mls/hr [id number] IV 10/25/24 00:00 10/25/24 00:19 Vital Signs Vital Signs Date Time Temp Pulse Resp B/P (MAP) Pulse Ox O2 Delivery O2 Flow Rate FiO2 10/25/24 10:52 71 20 102/67 10/25/24 08:38 97.3 92 97.3 10/24/24 20:00 Room Air* 0 21 Physical Exam GEN: Age-appropriate female in no acute distress. Alert. HEENT: Normocephalic atraumatic. Moist mucous membranes. Anicteric sclerae. CV: RRR Respiratory: CTAB ABD: There is a palpable soft tissue neoplasm in the left lower quadrant with minimal erythematous skin changes. There is localized tenderness to palpation in this area. No fluctuance or drainage. CT of the abdomen and pelvis: Left anterior abdominal wall hyperdense lesion measuring 3.7 x 3.3 cm with surrounding stranding. Labs/Diagnostic Data Labs Test 10/25/24 05:58 10/24/24 18:45 10/24/24 06:28 10/23/24 20:26 Range/Units POC Glucose 126 H 70-106 mg/dl White Blood Count 6.4 4.4-10.8 10^3/uL Red Blood Count 4.42 4.0-5.20 10^6/uL Hemoglobin 13.2 12.2-16.2 g/dL Hematocrit 39.1 36.0-46.0 % Mean Corpuscular Volume 88.4 80.0-100.0 fL Mean Corpuscular Hemoglobin 29.8 28.0-32.0 pg Mean Corpuscular Hemoglobin Concent 33.7 32.0-36.0 g/dL Red Cell Distribution Width 15.1 H 11.8-14.3 % Platelet Count 185 140-450 10^3/uL Mean Platelet Volume 8.4 6.9-10.8 fL Neutrophils (%) (Auto) 58.2 37.0-80.0 % Lymphocytes (%) (Auto) 30.6 10.0-50.0 % Monocytes (%) (Auto) 4.8 0.0-12.0 % Eosinophils (%) (Auto) 6.0 0.0-7.0 % Basophils (%) (Auto) 0.4 0.0-2.0 % Neutrophils # (Auto) 3.7 1.6-8.6 10 ^3/uL Lymphocytes # (Auto) 2.0 0.4-5.4 10 ^3/uL Monocytes # (Auto) 0.3 0-1.3 10 ^3/uL Eosinophils # (Auto) 0.4 0-0.8 10 ^3/uL Basophils # (Auto) 0 0-0.2 10 ^3/uL Nucleated Red Blood Cells 0.1 % Prothrombin Time 10.0 9.3-11.8 sec Prothrombin Time INR 0.94 0.9-1.15 Activated Partial Thromboplast Time 24.8 24.5-34.5 SEC Sodium Level 139 # 136-145 mmol/L Potassium Level 3.8 3.5-5.1 mmol/L Chloride Level 102 98-107 mmol/L Carbon Dioxide Level 28 20-31 mmol/L Anion Gap 9 5-15 Blood Urea Nitrogen 15 9-23 mg/dL Creatinine 1.21 H 0.550-1.02 mg/dL Glomerular Filtration Rate Calc 51 >90 mL/min BUN/Creatinine Ratio 12.4 10.0-20.0 Serum Glucose 144 H 74-106 mg/dL Calcium Level 9.9 8.7-10.4 mg/dL C-Reactive Protein High Sensitivity 0.95 <1.0 mg/dL Stool Occult Blood Negative Negative Stool Occult Blood Sample #3 Negative Test 10/23/24 05:19 10/22/24 22:36 10/22/24 20:20 10/22/24 19:40 Range/Units Total Bilirubin 0.4 0.2-1.0 mg/dL Aspartate Amino Transferase (AST) 10 L 13-40 U/L Alanine Aminotransferase (ALT) < 9 7-40 U/L Alkaline Phosphatase 123 H 46-116 U/L Total Protein 7.0 5.7-8.2 g/dL Albumin 4.7 3.2-4.8 g/dL Troponin I High Sensitivity < 3 L </=34 ng/L Urine Color Yellow Yellow Urine Clarity Turbid H Clear Urine pH 5.5 5.0-9.0 Urine Specific [place] 1.016 1.001-1.035 Urine Protein Negative Negative Urine Ketones Negative Negative Urine Blood Negative Negative /uL Urine Nitrite Negative Negative Urine Bilirubin Negative Negative Urine Urobilinogen Normal Negative mg/dL Urine Leukocyte Esterase 2+ Negative /uL Urine RBC 6 0 - 4 /hpf Urine Microscopic WBC 65 H 0-5 /HPF Urine Squamous Epithelial Cells Few <5 /hpf Urine Calcium Oxalate Crystals Few None Seen Urine Bacteria Few H None Seen /hpf Urine Hyaline Casts Mod 0 - 2 /lpf Urine Glucose Normal Normal mg/dL B-Type Natriuretic Peptide 7.90 0-100 pg/mL Assessment 1. Left lower quadrant abdominal pain possibly from a soft tissue neoplasm in the left abdominal wall Plan/Recommendation 1. 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 Informed consent: The surgery and its risks including but not limited to infection, bleeding postoperatively, possible perioperative [place] or stroke, possibility that the abdominal pain was may still persist even after surgery were explained to the patient and her daughter. All questions were answered to their satisfaction. The patient expressed verbal understanding wished to proceed with the surgery. Plan discussed with: Patient FRANK STONE MD Oct 25, 2024 11:08
--- NOTE | 2024-10-25 14:07 | DVHPN2 ---
Progress Note Date Seen: Oct 25, 2024 Medical Necessity Reason Pt with a Central, PICC or Fol: No Subjective Review of Systems: CVS:Normal, RESPIRATORY:Normal, GI:Normal, NEURO:Normal Objective vital signs Vital Sign Date Time Temp Pulse Resp B/P (MAP) Pulse Ox O2 Delivery O2 Flow Rate FiO2 10/25/24 11:22 68 18 100/74 10/25/24 08:38 97.3 92 97.3 10/25/24 08:00 Room Air* 0 21 Total Intake and Output 10/24/24 10/24/24 10/25/24 15:00 23:00 07:00 Intake Total 1500 ml 800 ml Balance 1500 ml 800 ml medications Current Medications Medications Dose Ordered Sig/Damon Route Start Time Stop Time Status Last Admin Dose Admin Ondansetron HCl 4 mg Q4HP PRN IV 10/22/24 22:45 Docusate Sodium 100 mg BIDPRN PRN PO 10/22/24 22:45 Acetaminophen 650 mg Q6HP PRN PO 10/22/24 22:45 Morphine Sulfate 2 mg Q4HPRN PRN IV 10/22/24 22:45 10/25/24 10:52 2 MG Nitroglycerin 0.4 mg Q5MINP PRN SL 10/22/24 22:45 Morphine Sulfate 2 mg Q30M PRN IV 10/22/24 22:45 Diagnostic Test (Pha) 1 strip ACHS 10/23/24 07:00 10/25/24 12:12 1 STRIP Insulin Human Regular HS SC 10/23/24 22:00 10/24/24 21:55 3 UNITS Insulin Human Regular AC SC 10/23/24 07:00 10/25/24 12:13 2 UNITS Dextrose 50 ml UD PRN IV 10/22/24 22:45 Aspirin 81 mg DAILY PO 10/23/24 10:00 10/25/24 09:48 81 MG Atorvastatin Calcium 20 mg DAILY PO 10/23/24 10:00 10/25/24 09:48 20 MG Baclofen 5 mg Q8HP PRN PO 10/22/24 22:45 Clopidogrel Bisulfate 75 mg DAILY PO 10/23/24 10:00 10/25/24 09:48 75 MG Furosemide 40 mg BID PO 10/23/24 10:00 10/25/24 09:48 40 MG Gabapentin 300 mg Q8HR PO 10/23/24 06:00 10/25/24 05:33 300 MG Paroxetine HCl 20 mg DAILY PO 10/23/24 10:00 10/25/24 09:49 20 MG Ranolazine 500 mg BID PO 10/23/24 10:00 10/25/24 09:49 500 MG Isosorbide Mononitrate 30 mg DAILY PO 10/23/24 10:00 10/25/24 09:49 30 MG Diltiazem HCl 120 mg DAILY PO 10/23/24 10:00 10/25/24 09:49 120 MG Oxycodone/ Acetaminophen 2 tab Q6HP PRN PO 10/23/24 10:15 10/24/24 21:52 2 TAB Mesalamine 800 mg TID PO 10/23/24 22:00 10/25/24 05:33 800 MG Metronidazole 100 ml @ 100 mls/hr Q8HR IV 10/24/24 14:00 10/25/24 05:32 100 MLS/HR Ceftriaxone Sodium 50 ml @ 100 mls/hr DAILY@09 IV 10/25/24 09:00 10/25/24 10:49 100 MLS/HR Lactated Ringer's 1,000 ml @ 75 mls/hr [id number] IV 10/25/24 00:00 10/25/24 00:19 75 MLS/HR Examination: GENERAL:Normal, LUNGS:Normal, CVS:Normal, ABDOMEN:Normal, SKIN:Normal, NEURO:Normal laboratory and microbiology Laboratory Tests 10/24/24 18:45 Test 10/24/24 18:45 Range/Units Serum Glucose 144 H 74-106 mg/dL Labs and/or images reviewed: Labs reviewed by me, Image(s) reviewed by me Problem List/Assessment/Plan Problem List/Assessment/Plan . Unstable angina Monitor, start antianginal 2. Rectal bleeding Monitor, send stool OB, daily labs 3. CAD s/p stent x 2 Monitor, PPI 4. HLD Monitor, restart DAPT 5. Hx of ulcerative colitis Monitor, GI consult 6. Hx of CVA with residual deficits Monitor 7. CKD 3 A Assessment/Plan Subjective Patient is awake and alert. Objective Patient states she no longer has chest pain she sts her pain is more in her abdomen and most likely related to her ulcerative colitis and Crohns. Patient states that she does have a history of external hemorrhoids. Hemoglobin remains stable and stool occult is negative. Patient was seen by cardiology. She was continued on her dual antiplatelet therapy. Patient has a history of recent cardiac stents from [facility]. Patient continues to have abdominal pain to left lower quadrant and CT scan is showing hyperdense area to LLQ. Patient was seen by Dr. Koenig general surgeon who is platelet 4 excisional biopsy of left lower quadrant abdominal wall soft tissue neoplasm. Plan Continue current treatment. Cardiac harrison patient appears to be stable. continue with IV abx, obtain surgical consult. Monitor daily labs. Monitor for any active signs or symptoms of bleeding. Continue with left lower quadrant abdominal wall soft tissue biopsy. Plan discussed with: Patient Date of Service: Oct 25, 2024 Billing Provider: CAL MARTINO MD Common Visit Codes: [id number] INP/OBS CARE (MOD) TAMI ROOT MEASURING MACHINE TENDER Oct 25, 2024 14:07
--- NOTE | 2024-10-25 17:51 | DVHPN2 ---
Progress Note - Dictate Date Seen: Oct 25, 2024 Medical Necessity Reason Pt with a Central, PICC or Fol: No Subjective Patient has left lower quadrant pain and discomfort CT scan was abnormal in this area suggestive of a mass in the anterior abdominal wall I requested Dr. Koenig to do a consultation No GI bleeding and H&H is stable vital signs Vital Sign Date Time Temp Pulse Resp B/P (MAP) Pulse Ox O2 Delivery O2 Flow Rate FiO2 10/25/24 17:00 98.1 72 17 100/62 (75) 91 98.1 10/25/24 08:00 Room Air* 0 21 Total Intake and Output 10/24/24 10/24/24 10/25/24 15:00 23:00 07:00 Intake Total 1500 ml 800 ml Balance 1500 ml 800 ml medications Current Medications Medications Dose Ordered Sig/Damon Route Start Time Stop Time Status Last Admin Dose Admin Ondansetron HCl 4 mg Q4HP PRN IV 10/22/24 22:45 Docusate Sodium 100 mg BIDPRN PRN PO 10/22/24 22:45 Acetaminophen 650 mg Q6HP PRN PO 10/22/24 22:45 Morphine Sulfate 2 mg Q4HPRN PRN IV 10/22/24 22:45 10/25/24 16:29 2 MG Nitroglycerin 0.4 mg Q5MINP PRN SL 10/22/24 22:45 Morphine Sulfate 2 mg Q30M PRN IV 10/22/24 22:45 Diagnostic Test (Pha) 1 strip ACHS 10/23/24 07:00 10/25/24 16:37 1 STRIP Insulin Human Regular HS SC 10/23/24 22:00 10/24/24 21:55 3 UNITS Insulin Human Regular AC SC 10/23/24 07:00 10/25/24 16:38 6 UNITS Dextrose 50 ml UD PRN IV 10/22/24 22:45 Aspirin 81 mg DAILY PO 10/23/24 10:00 10/25/24 09:48 81 MG Atorvastatin Calcium 20 mg DAILY PO 10/23/24 10:00 10/25/24 09:48 20 MG Baclofen 5 mg Q8HP PRN PO 10/22/24 22:45 Clopidogrel Bisulfate 75 mg DAILY PO 10/23/24 10:00 10/25/24 09:48 75 MG Furosemide 40 mg BID PO 10/23/24 10:00 10/25/24 09:48 40 MG Gabapentin 300 mg Q8HR PO 10/23/24 06:00 10/25/24 15:22 300 MG Paroxetine HCl 20 mg DAILY PO 10/23/24 10:00 10/25/24 09:49 20 MG Ranolazine 500 mg BID PO 10/23/24 10:00 10/25/24 09:49 500 MG Isosorbide Mononitrate 30 mg DAILY PO 10/23/24 10:00 10/25/24 09:49 30 MG Diltiazem HCl 120 mg DAILY PO 10/23/24 10:00 10/25/24 09:49 120 MG Oxycodone/ Acetaminophen 2 tab Q6HP PRN PO 10/23/24 10:15 10/24/24 21:52 2 TAB Mesalamine 800 mg TID PO 10/23/24 22:00 10/25/24 15:22 800 MG Metronidazole 100 ml @ 100 mls/hr Q8HR IV 10/24/24 14:00 10/25/24 15:23 100 MLS/HR Ceftriaxone Sodium 50 ml @ 100 mls/hr DAILY@09 IV 10/25/24 09:00 10/25/24 10:49 100 MLS/HR Lactated Ringer's 1,000 ml @ 75 mls/hr [id number] IV 10/25/24 00:00 10/25/24 00:19 75 MLS/HR objective General Appeara: Well developed, Well nourished, Obese Head Exam: Normal inspection Neck Exam: Normal inspection Eye Exam: bilateral eye PERRL Mouth: Normal Inspection Pulmonary/Respiratory: Lungs clear Cardiovascular/Chest: Normal inspection, Regular rate Peripheral Pulses: 2+ carotid (R), 2+ carotid (L), 2+ femoral (R), 2+ femoral (L), 2+ dorsalis pedis (R), 2+ dorsalis pedis (L), 2+ Radial (R), 2+ Radial (L) Abdominal Exam: Normal bowel sounds, Soft Neuro/Mental St: Alert, Oriented Appearance: Appropriate appearance Eye contact/ Speech: Cooperative laboratory and microbiology Laboratory Tests 10/24/24 18:45 Test 10/24/24 18:45 Range/Units Serum Glucose 144 H 74-106 mg/dL Problems(with codes): (1) Abnormal finding on GI tract imaging (2) LLQ pain (3) Obesity (4) Chronic ulcerative colitis Prognosis Plan Appreciate surgical consult Patient to be scheduled for excisional biopsy of the left lower quadrant abdominal wall soft tissue neoplasm. Continue IV antibiotics and monitor labs Plan discussed with: Patient, Other (Dr Koenig) ISRAEL FARAH MD Oct 25, 2024 17:51
[2024-10-26] VITALS (8 sets, daily range): BP systolic 98–131; BP diastolic 48–65; PULSE 63–76; RESP 16–18; TEMP 97.2–98.5; O2SAT 90–100
--- NOTE | 2024-10-26 07:03 | DVHPN2 ---
Progress Note - Dictate Date Seen: Oct 26, 2024 Medical Necessity Reason Pt with a Central, PICC or Fol: No vital signs Vital Sign Date Time Temp Pulse Resp B/P (MAP) Pulse Ox O2 Delivery O2 Flow Rate FiO2 10/26/24 05:22 69 15 106/55 10/26/24 05:00 97.5 92 97.5 10/25/24 20:00 Room Air* 0 21 Total Intake and Output 10/25/24 10/25/24 10/26/24 15:00 23:00 07:00 Intake Total 50 ml 700 ml 1000 ml Balance 50 ml 700 ml 1000 ml medications Current Medications Medications Dose Ordered Sig/Damon Route Start Time Stop Time Status Last Admin Dose Admin Ondansetron HCl 4 mg Q4HP PRN IV 10/22/24 22:45 Docusate Sodium 100 mg BIDPRN PRN PO 10/22/24 22:45 Acetaminophen 650 mg Q6HP PRN PO 10/22/24 22:45 Morphine Sulfate 2 mg Q4HPRN PRN IV 10/22/24 22:45 10/26/24 04:52 2 MG Nitroglycerin 0.4 mg Q5MINP PRN SL 10/22/24 22:45 Morphine Sulfate 2 mg Q30M PRN IV 10/22/24 22:45 Diagnostic Test (Pha) 1 strip ACHS 10/23/24 07:00 10/26/24 06:19 1 STRIP Insulin Human Regular HS SC 10/23/24 22:00 10/25/24 21:01 4 UNITS Insulin Human Regular AC SC 10/23/24 07:00 10/26/24 06:10 2 UNITS Dextrose 50 ml UD PRN IV 10/22/24 22:45 Aspirin 81 mg DAILY PO 10/23/24 10:00 10/25/24 09:48 81 MG Atorvastatin Calcium 20 mg DAILY PO 10/23/24 10:00 10/25/24 09:48 20 MG Baclofen 5 mg Q8HP PRN PO 10/22/24 22:45 Furosemide 40 mg BID PO 10/23/24 10:00 10/25/24 21:09 40 MG Gabapentin 300 mg Q8HR PO 10/23/24 06:00 10/26/24 06:21 300 MG Paroxetine HCl 20 mg DAILY PO 10/23/24 10:00 10/25/24 09:49 20 MG Ranolazine 500 mg BID PO 10/23/24 10:00 10/25/24 21:09 500 MG Isosorbide Mononitrate 30 mg DAILY PO 10/23/24 10:00 10/25/24 09:49 30 MG Diltiazem HCl 120 mg DAILY PO 10/23/24 10:00 10/25/24 09:49 120 MG Oxycodone/ Acetaminophen 2 tab Q6HP PRN PO 10/23/24 10:15 10/24/24 21:52 2 TAB Mesalamine 800 mg TID PO 10/23/24 22:00 10/26/24 06:20 800 MG Metronidazole 100 ml @ 100 mls/hr Q8HR IV 10/24/24 14:00 10/26/24 06:21 100 MLS/HR Ceftriaxone Sodium 50 ml @ 100 mls/hr DAILY@09 IV 10/25/24 09:00 10/25/24 10:49 100 MLS/HR Lactated Ringer's 1,000 ml @ 75 mls/hr [id number] IV 10/25/24 00:00 10/25/24 00:19 75 MLS/HR laboratory and microbiology Laboratory Tests 10/24/24 18:45 Test 10/24/24 18:45 Range/Units Serum Glucose 144 H 74-106 mg/dL Assessment/Plan Assessment/Plan Patient is a 59-year-old female who presented to the hospital with 1 hour of chest discomfort. It started when she was sitting down. She mentions that she has been experiencing some chest discomfort going back for weeks. Cardiology is involved for cardiac aspects of care. She is known to our practice from previously admitted occasions and prior outside visits. It seems that she ran out of some of her antianginal medications awhile back. It is of note that she was in the hospital in July for comparative presentation. She had not have any outside visits since that admission. She also mentions that for the past few days she is experiencing bloody stool and dark stool. She does complain of occasional abdominal pain. Does have history of ulcerative colitis/Crohn disease. She also had C diff colitis few months back. During earlier admission in June/2024, the patient did have some chest pain with abnormal troponin and was found to have non-STEMI. Cardiac catheterization at that point revealed multivessel coronary artery disease and the patient was sent to [facility] for the suggested CABG surgery. It seems that in [facility] they did not do the CABG and the patient had only 1 stent. Later the patient was discharged home from [facility]. In the middle of July patient came back with chest discomfort to our facility and with diagnosis of unstable angina was sent back to [facility]. In [facility], the patient again had another stent. I had an opportunity to talk to the code machine operator in [facility]. It seems that during the 1st admission to [facility], they did put 1 stent in LAD. During the 2nd admission they put another stent in circumflex. It is of note that the patient did have LAD with trifurcation with disease in all of them. Reportedly (as per code machine operator in [facility]) LAD stent has resulted in pinching of the diagonals. Patient mentions compliance with aspirin/Plavix. Not in acute distress. No JVD. Mucosa is pink and dry. No carotid bruit. Lungs are clear to auscultation. Not using accessory muscles of breathing. Cardiac: Regular, no thrills/gallop. Abdomen is soft. Lower abdominal tenderness can be elicited. There is no rebound. Bowel sound is positive There was no gross mass/hepatomegaly. Extremities do not reveal edema. Dorsalis pedis is 2+ bilateral. 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 She has had kidney stones/hydronephrosis/hydroureter before. Uses a walker for ambulation (secondary to old CVA). Patient was found to have multivessel coronary artery disease (left heart catheterization of July 09, 2024). On July 12 2024, the patient was sent to higher level of care ([facility]) for possible CABG surgery. Patient ended up having 1 stent in LAD and CABG was not performed. At next presentation, patient was sent back to [facility] and had another stent (this time in LCX). Reportedly the patient does have pinching of diagonals. Echocardiogram of December 16, 2022 (performed in [facility]) revealed ejection fraction of 60%, mild TR and right ventricular systolic pressure of 27 mm Hg. Echocardiogram of October 18, 2023 reported ejection fraction 55-60%, mild MR/TR and right ventricular systolic pressure of 25 mm Echocardiogram of May 05, 2024 revealed ejection fraction of 50-55%, normal diastolic, trace MR/TR and right ventricular systolic pressure of 28 mm Hg Echocardiogram of July 05, 2024 had revealed ejection fraction of 40%, trace MR/TR and right ventricular systolic pressure of 30 mm Hg Echocardiogram of July 29, 2024 revealed ejection fraction of 50-55%, no wall motion abnormality, trace mitral regurgitation, no tricuspid regurgitation. As there was no good tricuspid regurgitation jet, right ventricular systolic pressure could not be estimated Nuclear stress test of January 03, 2022 (performed as outpatient) revealed ejection fraction of 80% and no evidence for ischemia/scar. Left heart catheterization of July 09 2024 had revealed triple-vessel coronary artery disease Hemoglobin: 13.7 - 14.2 - 11.9 Creatinine: 1.25 - 1.18 - 1.08 Potassium: 3.7 - 3.5 - 3.5 Troponin (high sensitive): <3 - <3 Stool OB: negative Chest x-ray revealed: Frontal chest radiograph demonstrates no acute osseous or superficial soft tissue abnormalities. The trachea is midline. The cardiac silhouette and mediastinum are within normal limits. No pneumothorax, pleural effusions, or consolidations. EKG reveals sinus rhythm with nonspecific ST-T changes Tele reveals sinus rhythm Patient is a 59-year-old female who presents with atypical chest discomfort and generalized weakness. Does have history of coronary artery disease. Has had repeated ischemic workups recently. Is on dual antiplatelet therapy. Has not been compliant with the suggested antianginal therapy which could have contributed to the clinical picture. Did not come for outside cardiology visits since last admission. High sensitive troponin has been negative. Acute coronary syndrome is not considered at this point. She also experienced some abdominal pain and bloody bowel movement with dark stool. The patient does have history of inflammatory bowel disease. Did have non-STEMI in early July. Was sent to [facility] for possible CABG as she was found to have multivessel coronary artery disease. Instead of CABG the patient was given 1 stent (in LAD which resulted in pinching of diagonals). During the next presentation, the patient was sent back to [facility] and ended up having another stent, this time in LCX. To continue aspirin/Plavix. ACS is not considered at this point. We will restart antianginal therapy. Patient was counseled to be compliant with medication and followups. Chest pain Coronary artery disease Triple-vessel coronary artery disease Status post PCI (drug-eluting stent deployment of LAD and LCX) History of old CVA with left hemiparesis History of Crohn disease/ulcerative colitis Inflammatory Bowel Disease Constipation Hyperlipidemia Status post carotid endarterectomy Diverticular disease, history of Noncompliance with medication and followups Cardiac suggestion for management: Manage in tele Follow-up electrolytes and kidney function tests and correct abnormalities. Keep potassium above 4 and magnesium above 2 Aspirin/Plavix, continue Imdur, long-actin mg daily Ranolazine: 500 mg p.o. b.i.d. Diltiazem-ER: 120 mg daily There is no indication to repeat any ischemic workup at this point Evaluation and management of abdominal pain/recent GI bleeding as per primary team/GI Recognizing urgent need for excisional biopsy involving potential neoplasm (LLQ abdominal wall) with most recent PCI > 3 months, may consider holding concurrent Plavix (for now). Proceed with Aspirin 81mg daily during the interim. Risks involved with holding Plavix therapy were discussed with the patient which she verbalized understanding and had agreed given indication. Cardiac harrison, is stable and can be followed as outpatient Lifestyle and risk factor modification is advised A total of 75 minutes was spent reviewing the patient record, examining the patient, making a diagnostic and therapeutic plan, discussing this plan with medical personnel, following up on diagnostic studies and following the patient for clinical stability excluding any and all procedures. At least 50% of this time was spent in direct, [id number] contact. Thank you for allowing me to participate in this patient's care. Further recommendations will depend on patient's clinical course. Please do not hesitate to contact me if you have any questions or concerns. This medical document was created using electronic medical record system with [employer] dictation system. Although this document has been carefully reviewed, there may still be some phonetic and typographical errors. These areas are purely typographical due to the imperfection of the software programs, and do not reflect any compromise in the patient's medical care Plan discussed with: Patient, Other (nurse) Plan discussed with: Patient (Patient and Primary RN ) UYEN MÁRQUEZ [facility] Oct 26, 2024 07:03
[2024-10-26] MEDS ORDERED: ALBUMIN 25% 100 ML IV ONE (08:00)
[2024-10-26] MEDS ORDERED: METOPROLOL TARTRATE 1MG/1ML-5ML VIAL IV ONE (08:00)
[2024-10-26 11:08] LABS: Hematocrit 35.6 % (36.0-46.0); Hemoglobin 11.9 g/dL (12.2-16.2); Mean Corpuscular Hemoglobin 29.4 pg (28.0-32.0); Mean Corpuscular Volume 87.9 fL (80.0-100.0); Nucleated Red Blood Cells % 0.0 %
[2024-10-26 11:25] LABS: Albumin 3.7 g/dL (3.2-4.8); Alkaline Phosphatase 97 U/L (46-116); Anion Gap 7 (5-15); BUN/Creatinine Ratio 10.2 (10.0-20.0); Blood Urea Nitrogen 11 mg/dL (9-23); Calcium 9.4 mg/dL (8.7-10.4); Carbon Dioxide 29 mmol/L (20-31); Chloride 104 mmol/L (98-107); Potassium 3.5 mmol/L (3.5-5.1); Sodium 140 mmol/L (136-145)
[2024-10-26 11:26] LABS: Alanine Aminotransferase < 9 U/L (7-40); Bilirubin, Total 0.3 mg/dL (0.2-1.0); Glucose 229 mg/dL (74-106); Total Protein 5.7 g/dL (5.7-8.2)
[2024-10-26] MEDS: ONDANSETRON HCL 4 MG/2 ML VIAL IV PRN (12:03)
--- NOTE | 2024-10-26 15:36 | DVHPN2 ---
Progress Note Date Seen: Oct 26, 2024 Medical Necessity Reason Pt with a Central, PICC or Fol: No Subjective Review of Systems: HEENT:Normal, RESPIRATORY:Normal, GI:Normal, :Normal, NEURO:Normal Objective vital signs Vital Sign Date Time Temp Pulse Resp B/P (MAP) Pulse Ox O2 Delivery O2 Flow Rate FiO2 10/26/24 12:52 98.5 67 18 101/55 (70) 94 98.5 10/26/24 08:00 Room Air* 0 21 Total Intake and Output 10/25/24 10/25/24 10/26/24 15:00 23:00 07:00 Intake Total 50 ml 700 ml 1000 ml Balance 50 ml 700 ml 1000 ml medications Current Medications Medications Dose Ordered Sig/Damon Route Start Time Stop Time Status Last Admin Dose Admin Ondansetron HCl 4 mg Q4HP PRN IV 10/22/24 22:45 10/26/24 12:03 4 MG Docusate Sodium 100 mg BIDPRN PRN PO 10/22/24 22:45 Acetaminophen 650 mg Q6HP PRN PO 10/22/24 22:45 Morphine Sulfate 2 mg Q4HPRN PRN IV 10/22/24 22:45 10/26/24 04:52 2 MG Nitroglycerin 0.4 mg Q5MINP PRN SL 10/22/24 22:45 Morphine Sulfate 2 mg Q30M PRN IV 10/22/24 22:45 Diagnostic Test (Pha) 1 strip ACHS 10/23/24 07:00 10/26/24 12:03 1 STRIP Insulin Human Regular HS SC 10/23/24 22:00 10/25/24 21:01 4 UNITS Insulin Human Regular AC SC 10/23/24 07:00 10/26/24 12:03 6 UNITS Dextrose 50 ml UD PRN IV 10/22/24 22:45 Aspirin 81 mg DAILY PO 10/23/24 10:00 10/26/24 09:10 81 MG Atorvastatin Calcium 20 mg DAILY PO 10/23/24 10:00 10/26/24 09:09 20 MG Baclofen 5 mg Q8HP PRN PO 10/22/24 22:45 Furosemide 40 mg BID PO 10/23/24 10:00 10/26/24 09:09 40 MG Gabapentin 300 mg Q8HR PO 10/23/24 06:00 10/26/24 14:15 300 MG Paroxetine HCl 20 mg DAILY PO 10/23/24 10:00 10/26/24 09:09 20 MG Ranolazine 500 mg BID PO 10/23/24 10:00 10/26/24 09:09 500 MG Isosorbide Mononitrate 30 mg DAILY PO 10/23/24 10:00 10/25/24 09:49 30 MG Diltiazem HCl 120 mg DAILY PO 10/23/24 10:00 10/25/24 09:49 120 MG Oxycodone/ Acetaminophen 2 tab Q6HP PRN PO 10/23/24 10:15 10/26/24 09:17 2 TAB Mesalamine 800 mg TID PO 10/23/24 22:00 10/26/24 14:15 800 MG Metronidazole 100 ml @ 100 mls/hr Q8HR IV 10/24/24 14:00 10/26/24 14:15 100 MLS/HR Ceftriaxone Sodium 50 ml @ 100 mls/hr DAILY@09 IV 10/25/24 09:00 10/26/24 09:09 100 MLS/HR Lactated Ringer's 1,000 ml @ 75 mls/hr [id number] IV 10/25/24 00:00 10/25/24 00:19 75 MLS/HR Examination: GENERAL:Normal, LUNGS:Normal, CVS:Normal, ABDOMEN:Normal, SKIN:Normal, NEURO:Normal laboratory and microbiology Laboratory Tests 10/26/24 10:25 Test 10/26/24 10:25 Range/Units Serum Glucose 229 H 74-106 mg/dL Labs and/or images reviewed: Labs reviewed by me, Image(s) reviewed by me Problem List/Assessment/Plan Problem List/Assessment/Plan . Unstable angina Monitor, start antianginal 2. Rectal bleeding Monitor, send stool OB, daily labs 3. CAD s/p stent x 2 Monitor, PPI 4. HLD Monitor, restart DAPT 5. Hx of ulcerative colitis Monitor, GI consult 6. Hx of CVA with residual deficits Monitor 7. CKD 3 A Assessment/Plan Subjective Patient is awake and alert. Objective Patient states she no longer has chest pain she sts her pain is more in her abdomen and most likely related to her ulcerative colitis and Crohns. Patient states that she does have a history of external hemorrhoids. Hemoglobin remains stable and stool occult is negative. Patient was seen by cardiology. She was continued on her dual antiplatelet therapy. Patient has a history of recent cardiac stents from [facility]. Patient continues to have abdominal pain to left lower quadrant and CT scan is showing hyperdense area to LLQ. Patient was seen by Dr. 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 Plan Continue current treatment. Cardiac harrison patient appears to be stable. continue with IV abx, obtain surgical consult. Monitor daily labs. Monitor for any active signs or symptoms of bleeding. Continue with left lower quadrant abdominal wall soft tissue biopsy. NPO after midnight Plan discussed with: Patient Date of Service: Oct 26, 2024 Billing Provider: CAL MARTINO MD Common Visit Codes: [id number] INP/OBS CARE (MOD) TAMI ROOT STEWARD/STEWARDESS SECOND Oct 26, 2024 15:36
[2024-10-27] VITALS (9 sets, daily range): BP systolic 96–164; BP diastolic 54–97; PULSE 63–89; RESP 14–18; TEMP 97.4–98.4; O2SAT 92–97
[2024-10-27] MEDS ORDERED: KETAMINE 50mg/ML 1ml syringe ONE (08:04)
[2024-10-27] MEDS ORDERED: HYDROmorphone HCL 2 MG/ML VL/or syr ONE (08:04)
[2024-10-27] MEDS ORDERED: MIDAZOLAM HCL 2MG/2ML 2ml VIAL (1mg/ml) ONE ×2 (08:04→08:52)
[2024-10-27] MEDS ORDERED: fentaNYL CITRATE 100 MCG/2 ML VL ONE (08:04)
[2024-10-27] MEDS ORDERED: ROCURONIUM 10MG/ML 10ML VIAL IV ONE (08:08)
[2024-10-27] MEDS ORDERED: LIDOCAINE 1% INJ PF 5ML AMP ONE (08:08)
[2024-10-27] MEDS ORDERED: ONDANSETRON HCL 4 MG/2 ML VIAL ONE (08:08)
[2024-10-27] MEDS ORDERED: SODIUM CHLORIDE LOCK 10 ML ONE (08:08)
[2024-10-27] MEDS ORDERED: PROPOFOL 10 MG/ML 20 ML IV ONE (08:08)
[2024-10-27] MEDS ORDERED: LIDOCAINE HCL 2% TOP JELLY 5ML TOP ONE (08:08)
--- NOTE | 2024-10-27 08:39 | DVHPN2 ---
Progress Note - Dictate Date Seen: Oct 27, 2024 Medical Necessity Reason Pt with a Central, PICC or Fol: No vital signs Vital Sign Date Time Temp Pulse Resp B/P (MAP) Pulse Ox O2 Delivery O2 Flow Rate FiO2 10/27/24 05:00 97.4 70 18 99/60 (73) 92 97.4 10/26/24 20:00 Room Air* 0 21 Total Intake and Output 10/26/24 10/26/24 10/27/24 15:00 23:00 07:00 Intake Total 150 ml 2000 ml 1100 ml Balance 150 ml 2000 ml 1100 ml medications Current Medications Medications Dose Ordered Sig/Damon Route Start Time Stop Time Status Last Admin Dose Admin Ondansetron HCl 4 mg Q4HP PRN IV 10/22/24 22:45 10/26/24 12:03 4 MG Docusate Sodium 100 mg BIDPRN PRN PO 10/22/24 22:45 Acetaminophen 650 mg Q6HP PRN PO 10/22/24 22:45 Morphine Sulfate 2 mg Q4HPRN PRN IV 10/22/24 22:45 10/27/24 01:49 2 MG Nitroglycerin 0.4 mg Q5MINP PRN SL 10/22/24 22:45 Morphine Sulfate 2 mg Q30M PRN IV 10/22/24 22:45 Diagnostic Test (Pha) 1 strip ACHS 10/23/24 07:00 10/27/24 05:48 1 STRIP Insulin Human Regular HS SC 10/23/24 22:00 10/26/24 21:46 3 UNITS Insulin Human Regular AC SC 10/23/24 07:00 10/26/24 18:04 2 UNITS Dextrose 50 ml UD PRN IV 10/22/24 22:45 Aspirin 81 mg DAILY PO 10/23/24 10:00 10/26/24 09:10 81 MG Atorvastatin Calcium 20 mg DAILY PO 10/23/24 10:00 10/26/24 09:09 20 MG Baclofen 5 mg Q8HP PRN PO 10/22/24 22:45 Furosemide 40 mg BID PO 10/23/24 10:00 10/26/24 21:36 40 MG Gabapentin 300 mg Q8HR PO 10/23/24 06:00 10/26/24 21:36 300 MG Paroxetine HCl 20 mg DAILY PO 10/23/24 10:00 10/26/24 09:09 20 MG Ranolazine 500 mg BID PO 10/23/24 10:00 10/26/24 21:37 500 MG Isosorbide Mononitrate 30 mg DAILY PO 10/23/24 10:00 10/25/24 09:49 30 MG Diltiazem HCl 120 mg DAILY PO 10/23/24 10:00 10/25/24 09:49 120 MG Oxycodone/ Acetaminophen 2 tab Q6HP PRN PO 10/23/24 10:15 10/26/24 09:17 2 TAB Mesalamine 800 mg TID PO 10/23/24 22:00 10/26/24 21:36 800 MG Metronidazole 100 ml @ 100 mls/hr Q8HR IV 10/24/24 14:00 10/27/24 05:48 100 MLS/HR Ceftriaxone Sodium 50 ml @ 100 mls/hr DAILY@09 IV 10/25/24 09:00 10/26/24 09:09 100 MLS/HR Lactated Ringer's 1,000 ml @ 75 mls/hr [id number] IV 10/25/24 00:00 10/26/24 20:32 75 MLS/HR laboratory and microbiology Laboratory Tests 10/26/24 10:25 Test 10/26/24 10:25 Range/Units Serum Glucose 229 H 74-106 mg/dL Assessment/Plan Patient is a 59-year-old female who presented to the hospital with 1 hour of chest discomfort. It started when she was sitting down. She mentions that she has been experiencing some chest discomfort going back for weeks. Cardiology is involved for cardiac aspects of care. She is known to our practice from previously admitted occasions and prior outside visits. It seems that she ran out of some of her antianginal medications awhile back. It is of note that she was in the hospital in July for comparative presentation. She had not have any outside visits since that admission. She also mentions that for the past few days she is experiencing bloody stool and dark stool. She does complain of occasional abdominal pain. Does have history of ulcerative colitis/Crohn disease. She also had C diff colitis few months back. During earlier admission in June/2024, the patient did have some chest pain with abnormal troponin and was found to have non-STEMI. Cardiac catheterization at that point revealed multivessel coronary artery disease and the patient was sent to [facility] for the suggested CABG surgery. It seems that in [facility] they did not do the CABG and the patient had only 1 stent. Later the patient was discharged home from [facility]. In the middle of July patient came back with chest discomfort to our facility and with diagnosis of unstable angina was sent back to [facility]. In [facility], the patient again had another stent. I had an opportunity to talk to the headrig sawyer in [facility]. It seems that during the 1st admission to [facility], they did put 1 stent in LAD. During the 2nd admission they put another stent in circumflex. It is of note that the patient did have LAD with trifurcation with disease in all of them. Reportedly (as per headrig sawyer in [facility]) LAD stent has resulted in pinching of the diagonals. Patient mentions compliance with aspirin/Plavix. Not in acute distress. No JVD. Mucosa is pink and dry. No carotid bruit. Lungs are clear to auscultation. Not using accessory muscles of breathing. Cardiac: Regular, no thrills/gallop. Abdomen is soft. Lower abdominal tenderness can be elicited. There is no rebound. Bowel sound is positive There was no gross mass/hepatomegaly. Extremities do not reveal edema. Dorsalis pedis is 2+ bilateral. 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 She has had kidney stones/hydronephrosis/hydroureter before. Uses a walker for ambulation (secondary to old CVA). Patient was found to have multivessel coronary artery disease (left heart catheterization of July 09, 2024). On July 12 2024, the patient was sent to higher level of care ([facility]) for possible CABG surgery. Patient ended up having 1 stent in LAD and CABG was not performed. At next presentation, patient was sent back to [facility] and had another stent (this time in LCX). Reportedly the patient does have pinching of diagonals. Echocardiogram of December 16, 2022 (performed in [facility]) revealed ejection fraction of 60%, mild TR and right ventricular systolic pressure of 27 mm Hg. Echocardiogram of October 18, 2023 reported ejection fraction 55-60%, mild MR/TR and right ventricular systolic pressure of 25 mm Echocardiogram of May 05, 2024 revealed ejection fraction of 50-55%, normal diastolic, trace MR/TR and right ventricular systolic pressure of 28 mm Hg Echocardiogram of July 05, 2024 had revealed ejection fraction of 40%, trace MR/TR and right ventricular systolic pressure of 30 mm Hg Echocardiogram of July 29, 2024 revealed ejection fraction of 50-55%, no wall motion abnormality, trace mitral regurgitation, no tricuspid regurgitation. As there was no good tricuspid regurgitation jet, right ventricular systolic pressure could not be estimated Nuclear stress test of January 03, 2022 (performed as outpatient) revealed ejection fraction of 80% and no evidence for ischemia/scar. Left heart catheterization of July 09 2024 had revealed triple-vessel coronary artery disease Hemoglobin: 13.7 - 14.2 - 13.2 - 11.9 Creatinine: 1.25 - 1.18 - 1.21 - 1.08 Potassium: 3.7 - 3.5 - 3.8 - 3.5 Troponin (high sensitive): <3 - <3 BNP: 7.90 Stool OB: negative Chest x-ray revealed: Frontal chest radiograph demonstrates no acute osseous or superficial soft tissue abnormalities. The trachea is midline. The cardiac silhouette and mediastinum are within normal limits. No pneumothorax, pleural effusions, or consolidations. CT of Abdomen and Pelvis revealed: There is limited interpretation of the abdomen and pelvis without administration of intravenous contrast. The lung bases demonstrate atelectasis. Coronary artery calcification disease. Adrenal glands, spleen and pancreas unremarkable in shape. Liver unremarkable in shape. Kidneys demonstrate no hydronephrosis. Nonobstructing left renal calculus measuring 4 mm Punctate nonobstructing right renal calculi. 2 mm. Stomach is partially distended. Small bowel loops are normal in caliber. Colonic diverticula. Moderate volume stool in the colon. Normal appendix. Abdominal aortic atherosclerotic disease. Bladder partially distended. No free pelvic fluid. Left anterior abdominal wall hyperdensity measuring 3.7 x 3.3 cm with surrounding stranding. Calcified uterine leiomyomas. [id number] bilateral sacroiliac degenerative joint disease. [id number] thoracolumbar degenerative disc disease and facet hypertrophic changes. IMPRESSION: Limited evaluation without contrast. Nonobstructing bilateral renal calculi. Colonic diverticular disease. Moderate volume stool in the colon. Atherosclerotic, coronary artery calcification disease. Left anterior abdominal wall hyperdense lesion measuring 3.7 x 3.3 cm with surrounding stranding. This is of indeterminate etiology. Correlate clinically. Differential considerations would include hematoma, fatty infarction infected collection / abscess , soft tissue mass/neoplasm. Overall this appears more pronounced than the prior examination. Uterine leiomyomas. Other findings as described. EKG reveals sinus rhythm with nonspecific ST-T changes Tele reveals sinus rhythm Patient is a 59-year-old female who presents with atypical chest discomfort and generalized weakness. Does have history of coronary artery disease. Has had repeated ischemic workups recently. Is on dual antiplatelet therapy. Has not been compliant with the suggested antianginal therapy which could have contributed to the clinical picture. Did not come for outside cardiology visits since last admission. High sensitive troponin has been negative. Acute coronary syndrome is not considered at this point. She also experienced some abdominal pain and bloody bowel movement with dark stool. The patient does have history of inflammatory bowel disease. Did have non-STEMI in early July. Was sent to [facility] for possible CABG as she was found to have multivessel coronary artery disease. Instead of CABG the patient was given 1 stent (in LAD which resulted in pinching of diagonals). During the next presentation, the patient was sent back to [facility] and ended up having another stent, this time in LCX. To continue aspirin/Plavix. ACS is not considered at this point. We will restart antianginal therapy. Patient was counseled to be compliant with medication and followups. 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 As there has been more than 3 months from last PCI, and as there is concern about neoplasm, holding Plavix can be justified (prior to biopsy). Plan is to continue ASA. 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 Keep potassium above 4 and magnesium above 2 Imdur, long-actin mg daily Ranolazine: 500 mg p.o. b.i.d. Diltiazem-ER: 120 mg daily There is no indication to repeat any ischemic workup at this point Evaluation and management of abdominal pain/recent GI bleeding as per primary team/GI Recognizing urgent need for excisional biopsy involving potential neoplasm (LLQ abdominal wall) with most recent PCI > 3 months, may consider holding concurrent Plavix (for now). Proceed with Aspirin 81mg daily during the interim. Risks involved with holding Plavix therapy were discussed with the patient which she verbalized understanding and had agreed given indication. Cardiac harrison, patient is moderate risk patient for moderate risk procedure. Avoid Hypotension. Restart Plavix after procedure. Lifestyle and risk factor modification is advised A total of 75 minutes was spent reviewing the patient record, examining the patient, making a diagnostic and therapeutic plan, discussing this plan with medical personnel, following up on diagnostic studies and following the patient for clinical stability excluding any and all procedures. At least 50% of this time was spent in direct, [id number] contact. Thank you for allowing me to participate in this patient's care. Further recommendations will depend on patient's clinical course. Please do not hesitate to contact me if you have any questions or concerns. This medical document was created using electronic medical record system with [employer] computerized dictation system. Although this document has been carefully reviewed, there may still be some phonetic and typographical errors. These areas are purely typographical due to the imperfection of the software programs, and do not reflect any compromise in the patient's medical care Plan discussed with: Patient, Other (nurse) BALTAZAR SOMMERS MD Oct 27, 2024 08:39
[2024-10-27] MEDS ORDERED: HYDROmorphone HCL 2 MG/ML VL/or syr IV PRN ×2 (08:45)
[2024-10-27] MEDS: ACCU-CHEK COMFORT CURVE STRIP VI ONE (08:45)
[2024-10-27] MEDS: METOCLOPRAMIDE HCL 5MG/ml INJ 2ml VIAL IV ONE (08:45)
[2024-10-27] MEDS ORDERED: MORPHINE SULFATE 4 MG/ML SYR/VIAL IV PRN (08:45)
[2024-10-27] MEDS ORDERED: MORPHINE SULFATE INJ 2 MG/ml SYRG IV PRN (08:45)
[2024-10-27] MEDS: LIDOCAINE W/ EPINEPHRINE 1% 20ML VIAL ONE (10:04)
--- NOTE | 2024-10-27 18:22 | DVHPN2 ---
Progress Note - Dictate Date Seen: Oct 27, 2024 Medical Necessity Reason Pt with a Central, PICC or Fol: No Subjective Patient has returned from OR after excisional biopsy of left lower quadrant abdominal mass Patient has a dry dressing in place no GI bleeding reported vital signs Vital Sign Date Time Temp Pulse Resp B/P (MAP) Pulse Ox O2 Delivery O2 Flow Rate FiO2 10/27/24 17:59 76 20 126/77 10/27/24 17:00 98.1 94 98.1 10/27/24 10:35 Mask 6.0 10/27/24 08:00 21 Total Intake and Output 10/26/24 10/26/24 10/27/24 15:00 23:00 07:00 Intake Total 150 ml 2000 ml 1100 ml Balance 150 ml 2000 ml 1100 ml medications Current Medications Medications Dose Ordered Sig/Damon Route Start Time Stop Time Status Last Admin Dose Admin Ondansetron HCl 4 mg Q4HP PRN IV 10/22/24 22:45 10/26/24 12:03 4 MG Docusate Sodium 100 mg BIDPRN PRN PO 10/22/24 22:45 Acetaminophen 650 mg Q6HP PRN PO 10/22/24 22:45 Morphine Sulfate 2 mg Q4HPRN PRN IV 10/22/24 22:45 10/27/24 17:59 2 MG Nitroglycerin 0.4 mg Q5MINP PRN SL 10/22/24 22:45 Morphine Sulfate 2 mg Q30M PRN IV 10/22/24 22:45 Diagnostic Test (Pha) 1 strip ACHS 10/23/24 07:00 10/27/24 17:18 1 STRIP Insulin Human Regular HS SC 10/23/24 22:00 10/26/24 21:46 3 UNITS Insulin Human Regular AC SC 10/23/24 07:00 10/27/24 17:20 12 UNITS Dextrose 50 ml UD PRN IV 10/22/24 22:45 Aspirin 81 mg DAILY PO 10/23/24 10:00 10/27/24 11:47 81 MG Atorvastatin Calcium 20 mg DAILY PO 10/23/24 10:00 10/27/24 11:47 20 MG Baclofen 5 mg Q8HP PRN PO 10/22/24 22:45 Furosemide 40 mg BID PO 10/23/24 10:00 10/26/24 21:36 40 MG Gabapentin 300 mg Q8HR PO 10/23/24 06:00 10/27/24 13:57 300 MG Paroxetine HCl 20 mg DAILY PO 10/23/24 10:00 10/27/24 11:47 20 MG Ranolazine 500 mg BID PO 10/23/24 10:00 10/27/24 11:48 500 MG Isosorbide Mononitrate 30 mg DAILY PO 10/23/24 10:00 10/25/24 09:49 30 MG Diltiazem HCl 120 mg DAILY PO 10/23/24 10:00 10/25/24 09:49 120 MG Mesalamine 800 mg TID PO 10/23/24 22:00 10/27/24 13:57 800 MG Metronidazole 100 ml @ 100 mls/hr Q8HR IV 10/24/24 14:00 10/27/24 13:57 100 MLS/HR Ceftriaxone Sodium 50 ml @ 100 mls/hr DAILY@09 IV 10/25/24 09:00 10/27/24 10:17 Lactated Ringer's 1,000 ml @ 75 mls/hr [id number] IV 10/25/24 00:00 10/27/24 17:23 75 MLS/HR Clopidogrel Bisulfate 75 mg DAILY PO 10/28/24 10:00 Acetaminophen/ Hydrocodone Bitart 1 tab Q4HP PRN PO 10/27/24 14:15 objective General Appeara: Well developed, Well nourished, Obese Head Exam: Normal inspection Neck Exam: Normal inspection Eye Exam: bilateral eye PERRL Mouth: Normal Inspection Pulmonary/Respiratory: Lungs clear Cardiovascular/Chest: Normal inspection, Regular rate Peripheral Pulses: 2+ carotid (R), 2+ carotid (L), 2+ femoral (R), 2+ femoral (L), 2+ dorsalis pedis (R), 2+ dorsalis pedis (L), 2+ Radial (R), 2+ Radial (L) Abdominal Exam: Normal bowel sounds, Soft; left lower quadrant dressing Neuro/Mental St: Alert, Oriented Appearance: Appropriate appearance Eye contact/ Speech: Cooperative laboratory and microbiology Laboratory Tests 10/26/24 10:25 Test 10/26/24 10:25 Range/Units Serum Glucose 229 H 74-106 mg/dL Problems(with codes): (1) LLQ pain (2) Abnormal finding on GI tract imaging (3) Chronic ulcerative colitis Prognosis Plan Continue postop care Continue wound care IV antibiotics IV PPI Advance diet as tolerated Maintain a mesalamine 800 mg p.o. three times a day I will follow up patient with you Dietary Evaluation Review Comments: CCHO-60 Cardiac diet with chopped meats, Expected Outcomes/Goals: healed GI function, gradual wt loss with controlled DM Plan discussed with: Other (None) ISRAEL FARAH MD Oct 27, 2024 18:22
--- NOTE | 2024-10-27 19:33 | DVHPN2 ---
Progress Note Date Seen: Oct 27, 2024 Medical Necessity Reason Pt with a Central, PICC or Fol: No Objective vital signs Vital Sign Date Time Temp Pulse Resp B/P (MAP) Pulse Ox O2 Delivery O2 Flow Rate FiO2 10/27/24 18:29 75 20 118/67 10/27/24 17:00 98.1 94 98.1 10/27/24 10:35 Mask 6.0 10/27/24 08:00 21 Total Intake and Output 10/26/24 10/26/24 10/27/24 14:59 22:59 06:59 Intake Total 150 ml 2000 ml 1100 ml Balance 150 ml 2000 ml 1100 ml medications Current Medications Medications Dose Ordered Sig/Damon Route Start Time Stop Time Status Last Admin Dose Admin Ondansetron HCl 4 mg Q4HP PRN IV 10/22/24 22:45 10/26/24 12:03 4 MG Docusate Sodium 100 mg BIDPRN PRN PO 10/22/24 22:45 Acetaminophen 650 mg Q6HP PRN PO 10/22/24 22:45 Morphine Sulfate 2 mg Q4HPRN PRN IV 10/22/24 22:45 10/27/24 17:59 2 MG Nitroglycerin 0.4 mg Q5MINP PRN SL 10/22/24 22:45 Morphine Sulfate 2 mg Q30M PRN IV 10/22/24 22:45 Diagnostic Test (Pha) 1 strip ACHS 10/23/24 07:00 10/27/24 17:18 1 STRIP Insulin Human Regular HS SC 10/23/24 22:00 10/26/24 21:46 3 UNITS Insulin Human Regular AC SC 10/23/24 07:00 10/27/24 17:20 12 UNITS Dextrose 50 ml UD PRN IV 10/22/24 22:45 Aspirin 81 mg DAILY PO 10/23/24 10:00 10/27/24 11:47 81 MG Atorvastatin Calcium 20 mg DAILY PO 10/23/24 10:00 10/27/24 11:47 20 MG Baclofen 5 mg Q8HP PRN PO 10/22/24 22:45 Furosemide 40 mg BID PO 10/23/24 10:00 10/26/24 21:36 40 MG Gabapentin 300 mg Q8HR PO 10/23/24 06:00 10/27/24 13:57 300 MG Paroxetine HCl 20 mg DAILY PO 10/23/24 10:00 10/27/24 11:47 20 MG Ranolazine 500 mg BID PO 10/23/24 10:00 10/27/24 11:48 500 MG Isosorbide Mononitrate 30 mg DAILY PO 10/23/24 10:00 10/25/24 09:49 30 MG Diltiazem HCl 120 mg DAILY PO 10/23/24 10:00 10/25/24 09:49 120 MG Mesalamine 800 mg TID PO 10/23/24 22:00 10/27/24 13:57 800 MG Metronidazole 100 ml @ 100 mls/hr Q8HR IV 10/24/24 14:00 10/27/24 13:57 100 MLS/HR Ceftriaxone Sodium 50 ml @ 100 mls/hr DAILY@09 IV 10/25/24 09:00 10/27/24 10:17 Lactated Ringer's 1,000 ml @ 75 mls/hr [id number] IV 10/25/24 00:00 10/27/24 17:23 75 MLS/HR Clopidogrel Bisulfate 75 mg DAILY PO 10/28/24 10:00 Acetaminophen/ Hydrocodone Bitart 1 tab Q4HP PRN PO 10/27/24 14:15 laboratory and microbiology Laboratory Tests 10/26/24 10:25 Test 10/26/24 10:25 Range/Units Serum Glucose 229 H 74-106 mg/dL Labs and/or images reviewed: Labs reviewed by me, Image(s) reviewed by me Problem List/Assessment/Plan Problem List/Assessment/Plan . Unstable angina Monitor, start antianginal 2. Rectal bleeding Monitor, send stool OB, daily labs 3. CAD s/p stent x 2 Monitor, PPI 4. HLD Monitor, restart DAPT 5. Hx of ulcerative colitis Monitor, GI consult 6. Hx of CVA with residual deficits Monitor 7. CKD 3 A Assessment/Plan Subjective PATIENT WAS IN OR AT THE TIME OF EXAMINATION Objective Patient states she no longer has chest pain she sts her pain is more in her abdomen and most likely related to her ulcerative colitis and Crohns. Patient states that she does have a history of external hemorrhoids. Hemoglobin remains stable and stool occult is negative. Patient was seen by cardiology. She was continued on her dual antiplatelet therapy. Patient has a history of recent cardiac stents from [facility]. Patient continues to have abdominal pain to left lower quadrant and CT scan is showing hyperdense area to LLQ. Patient is S/P excisional biopsy of left lower quadrant mass by Dr. Koenig. Plan Continue current treatment. Cardiac harrison patient appears to be stable. continue with IV abx, obtain surgical consult. Monitor daily labs. Monitor for any active signs or symptoms of bleeding. Continue supportive care Plan discussed with: Other (RN) My Orders My Orders Orders - TAMI ROOT Procedure Category Date Status Time Hydrocodone-Acet PHA 10/27/24 In Process 10/325mg Tab ([place] 14:15 Dietary Evaluation Review Comments: CCHO-60 Cardiac diet with chopped meats, Expected Outcomes/Goals: healed GI function, gradual wt loss with controlled DM Date of Service: Oct 27, 2024 Billing Provider: CAL MARTINO MD Common Visit Codes: 76045-[id number] INP/OBS CARE (MOD) TAMI ROOT Oct 27, 2024 19:33
[2024-10-28] MEDS: HYDROcodone-ACET 10/325MG TAB PO PRN (00:54)
[2024-10-28 01:00] VITALS: BP_SYST 134; BP_SYST 138; BP_DIAS 70; BP_DIAS 84; PULSE 76; PULSE 82; RESP 18; TEMP 97.5; TEMP 98.2; O2SAT 94; O2SAT 95
[2024-10-28 05:00] VITALS: BP 137/82; PULSE 75; RESP 18; TEMP 98; O2SAT 91
--- NOTE | 2024-10-28 06:40 | DVHPN2 ---
Progress Note - Dictate Date Seen: Oct 28, 2024 Medical Necessity Reason Pt with a Central, PICC or Fol: No vital signs Vital Sign Date Time Temp Pulse Resp B/P (MAP) Pulse Ox O2 Delivery O2 Flow Rate FiO2 10/28/24 05:00 98.0 75 18 137/82 (100) 91 98.0 10/27/24 20:00 Room Air* 0 21 Total Intake and Output 10/27/24 10/27/24 10/28/24 15:00 23:00 07:00 Intake Total 250 ml 400 ml 2300 ml Balance 250 ml 400 ml 2300 ml medications Current Medications Medications Dose Ordered Sig/Damon Route Start Time Stop Time Status Last Admin Dose Admin Ondansetron HCl 4 mg Q4HP PRN IV 10/22/24 22:45 10/26/24 12:03 4 MG Docusate Sodium 100 mg BIDPRN PRN PO 10/22/24 22:45 Acetaminophen 650 mg Q6HP PRN PO 10/22/24 22:45 Morphine Sulfate 2 mg Q4HPRN PRN IV 10/22/24 22:45 10/28/24 02:18 2 MG Nitroglycerin 0.4 mg Q5MINP PRN SL 10/22/24 22:45 Morphine Sulfate 2 mg Q30M PRN IV 10/22/24 22:45 Diagnostic Test (Pha) 1 strip ACHS 10/23/24 07:00 10/28/24 06:28 1 STRIP Insulin Human Regular HS SC 10/23/24 22:00 10/27/24 22:20 10 UNITS Insulin Human Regular AC SC 10/23/24 07:00 10/28/24 06:27 9 UNITS Dextrose 50 ml UD PRN IV 10/22/24 22:45 Aspirin 81 mg DAILY PO 10/23/24 10:00 10/27/24 11:47 81 MG Atorvastatin Calcium 20 mg DAILY PO 10/23/24 10:00 10/27/24 11:47 20 MG Baclofen 5 mg Q8HP PRN PO 10/22/24 22:45 Furosemide 40 mg BID PO 10/23/24 10:00 10/26/24 21:36 40 MG Gabapentin 300 mg Q8HR PO 10/23/24 06:00 10/28/24 05:59 300 MG Paroxetine HCl 20 mg DAILY PO 10/23/24 10:00 10/27/24 11:47 20 MG Ranolazine 500 mg BID PO 10/23/24 10:00 10/27/24 21:48 500 MG Isosorbide Mononitrate 30 mg DAILY PO 10/23/24 10:00 10/25/24 09:49 30 MG Diltiazem HCl 120 mg DAILY PO 10/23/24 10:00 10/25/24 09:49 120 MG Mesalamine 800 mg TID PO 10/23/24 22:00 10/28/24 05:59 800 MG Metronidazole 100 ml @ 100 mls/hr Q8HR IV 10/24/24 14:00 10/28/24 05:58 100 MLS/HR Ceftriaxone Sodium 50 ml @ 100 mls/hr DAILY@09 IV 10/25/24 09:00 10/27/24 10:17 Lactated Ringer's 1,000 ml @ 75 mls/hr [id number] IV 10/25/24 00:00 10/28/24 04:14 75 MLS/HR Clopidogrel Bisulfate 75 mg DAILY PO 10/28/24 10:00 Acetaminophen/ Hydrocodone Bitart 1 tab Q4HP PRN PO 10/27/24 14:15 10/28/24 00:54 1 TAB Insulin Glargine 8 units DAILY@1000 SC 10/28/24 10:00 laboratory and microbiology Laboratory Tests 10/26/24 10:25 Test 10/26/24 10:25 Range/Units Serum Glucose 229 H 74-106 mg/dL Assessment/Plan Patient is a 59-year-old female who presented to the hospital with 1 hour of chest discomfort. It started when she was sitting down. She mentions that she has been experiencing some chest discomfort going back for weeks. Cardiology is involved for cardiac aspects of care. She is known to our practice from previously admitted occasions and prior outside visits. It seems that she ran out of some of her antianginal medications awhile back. It is of note that she was in the hospital in July for comparative presentation. She had not have any outside visits since that admission. She also mentions that for the past few days she is experiencing bloody stool and dark stool. She does complain of occasional abdominal pain. Does have history of ulcerative colitis/Crohn disease. She also had C diff colitis few months back. During earlier admission in June/2024, the patient did have some chest pain with abnormal troponin and was found to have non-STEMI. Cardiac catheterization at that point revealed multivessel coronary artery disease and the patient was sent to [place] for the suggested CABG surgery. It seems that in [place] they did not do the CABG and the patient had only 1 stent. Later the patient was discharged home from [place]. In the middle of July patient came back with chest discomfort to our facility and with diagnosis of unstable angina was sent back to [place]. In [place], the patient again had another stent. I had an opportunity to talk to the interventional technologist in [place]. It seems that during the 1st admission to [place], they did put 1 stent in LAD. During the 2nd admission they put another stent in circumflex. It is of note that the patient did have LAD with trifurcation with disease in all of them. Reportedly (as per interventional technologist in [place]) LAD stent has resulted in pinching of the diagonals. Patient mentions compliance with aspirin/Plavix. Not in acute distress. No JVD. Mucosa is pink and dry. No carotid bruit. Lungs are clear to auscultation. Not using accessory muscles of breathing. Cardiac: Regular, no thrills/gallop. Abdomen is soft. Lower abdominal tenderness can be elicited. There is no rebound. Bowel sound is positive There was no gross mass/hepatomegaly. Extremities do not reveal edema. Dorsalis pedis is 2+ bilateral. 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 She has had kidney stones/hydronephrosis/hydroureter before. Uses a walker for ambulation (secondary to old CVA). Patient was found to have multivessel coronary artery disease (left heart catheterization of July 09, 2024). On July 12 2024, the patient was sent to higher level of care ([place]) for possible CABG surgery. Patient ended up having 1 stent in LAD and CABG was not performed. At next presentation, patient was sent back to [place] and had another stent (this time in LCX). Reportedly the patient does have pinching of diagonals. Echocardiogram of December 16, 2022 (performed in [facility]) revealed ejection fraction of 60%, mild TR and right ventricular systolic pressure of 27 mm Hg. Echocardiogram of October 18, 2023 reported ejection fraction 55-60%, mild MR/TR and right ventricular systolic pressure of 25 mm Echocardiogram of May 05, 2024 revealed ejection fraction of 50-55%, normal diastolic, trace MR/TR and right ventricular systolic pressure of 28 mm Hg Echocardiogram of July 05, 2024 had revealed ejection fraction of 40%, trace MR/TR and right ventricular systolic pressure of 30 mm Hg Echocardiogram of July 29, 2024 revealed ejection fraction of 50-55%, no wall motion abnormality, trace mitral regurgitation, no tricuspid regurgitation. As there was no good tricuspid regurgitation jet, right ventricular systolic pressure could not be estimated Nuclear stress test of January 03, 2022 (performed as outpatient) revealed ejection fraction of 80% and no evidence for ischemia/scar. Left heart catheterization of July 09 2024 had revealed triple-vessel coronary artery disease Hemoglobin: 13.7 - 14.2 - 13.2 - 11.9 Creatinine: 1.25 - 1.18 - 1.21 - 1.08 Potassium: 3.7 - 3.5 - 3.8 - 3.5 Troponin (high sensitive): <3 - <3 BNP: 7.90 Stool OB: negative Chest x-ray revealed: Frontal chest radiograph demonstrates no acute osseous or superficial soft tissue abnormalities. The trachea is midline. The cardiac silhouette and mediastinum are within normal limits. No pneumothorax, pleural effusions, or consolidations. CT of Abdomen and Pelvis revealed: There is limited interpretation of the abdomen and pelvis without administration of intravenous contrast. The lung bases demonstrate atelectasis. Coronary artery calcification disease. Adrenal glands, spleen and pancreas unremarkable in shape. Liver unremarkable in shape. Kidneys demonstrate no hydronephrosis. Nonobstructing left renal calculus measuring 4 mm Punctate nonobstructing right renal calculi. 2 mm. Stomach is partially distended. Small bowel loops are normal in caliber. Colonic diverticula. Moderate volume stool in the colon. Normal appendix. Abdominal aortic atherosclerotic disease. Bladder partially distended. No free pelvic fluid. Left anterior abdominal wall hyperdensity measuring 3.7 x 3.3 cm with surrounding stranding. Calcified uterine leiomyomas. Krrt-[id number] bilateral sacroiliac degenerative joint disease. Uhkq-[id number] thoracolumbar degenerative disc disease and facet hypertrophic changes. IMPRESSION: Limited evaluation without contrast. Nonobstructing bilateral renal calculi. Colonic diverticular disease. Moderate volume stool in the colon. Atherosclerotic, coronary artery calcification disease. Left anterior abdominal wall hyperdense lesion measuring 3.7 x 3.3 cm with surrounding stranding. This is of indeterminate etiology. Correlate clinically. Differential considerations would include hematoma, fatty infarction infected collection / abscess , soft tissue mass/neoplasm. Overall this appears more pronounced than the prior examination. Uterine leiomyomas. Other findings as described. EKG reveals sinus rhythm with nonspecific ST-T changes Tele reveals sinus rhythm Patient is a 59-year-old female who presents with atypical chest discomfort and generalized weakness. Does have history of coronary artery disease. Has had repeated ischemic workups recently. Is on dual antiplatelet therapy. Has not been compliant with the suggested antianginal therapy which could have contributed to the clinical picture. Did not come for outside cardiology visits since last admission. High sensitive troponin has been negative. Acute coronary syndrome is not considered at this point. She also experienced some abdominal pain and bloody bowel movement with dark stool. The patient does have history of inflammatory bowel disease. Did have non-STEMI in early July. Was sent to [place] for possible CABG as she was found to have multivessel coronary artery disease. Instead of CABG the patient was given 1 stent (in LAD which resulted in pinching of diagonals). During the next presentation, the patient was sent back to [place] and ended up having another stent, this time in LCX. To continue aspirin/Plavix. ACS is not considered at this point. We will restart antianginal therapy. Patient was counseled to be compliant with medication and followups. 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 As there has been more than 3 months from last PCI, and as there is concern about neoplasm, holding Plavix can be justified (prior to biopsy). Plan is to continue ASA. s/p procedure. 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 Keep potassium above 4 and magnesium above 2 Imdur, long-actin mg daily Ranolazine: 500 mg p.o. b.i.d. Diltiazem-ER: 120 mg daily There is no indication to repeat any ischemic workup at this point Evaluation and management of abdominal pain/recent GI bleeding as per primary team/GI Recognizing urgent need for excisional biopsy involving potential neoplasm (LLQ abdominal wall) with most recent PCI > 3 months, may consider holding concurrent Plavix (prior to procedure). Proceed with Aspirin 81mg daily during the interim. Risks involved with holding Plavix therapy were discussed with the patient which she verbalized understanding and had agreed given indication. Cardiac harrison, patient is moderate risk patient for moderate risk procedure. Avoid Hypotension. Procedure performed. Restarted on Plavix after procedure. Continue ASA/Plavix Cardiac harrison, stable Lifestyle and risk factor modification is advised A total of 75 minutes was spent reviewing the patient record, examining the patient, making a diagnostic and therapeutic plan, discussing this plan with medical personnel, following up on diagnostic studies and following the patient for clinical stability excluding any and all procedures. At least 50% of this time was spent in direct, [id number] contact. Thank you for allowing me to participate in this patient's care. Further recommendations will depend on patient's clinical course. Please do not hesitate to contact me if you have any questions or concerns. This medical document was created using electronic medical record system with [employer] computerized dictation system. Although this document has been carefully reviewed, there may still be some phonetic and typographical errors. These areas are purely typographical due to the imperfection of the software programs, and do not reflect any compromise in the patient's medical care Dietary Evaluation Review Comments: CCHO-60 Cardiac diet with chopped meats, Expected Outcomes/Goals: healed GI function, gradual wt loss with controlled DM Plan discussed with: Patient, Other (nurse) BALTAZAR SOMMERS MD Oct 28, 2024 06:40
[2024-10-28 08:00] VITALS: PULSE 70; RESP 16; O2SAT 99
[2024-10-28 09:00] VITALS: BP 122/78; PULSE 70; RESP 16; TEMP 98.2; O2SAT 94
[2024-10-28 09:26] LABS: Hematocrit 36.4 % (36.0-46.0); Hemoglobin 12.2 g/dL (12.2-16.2); Mean Corpuscular Hemoglobin 29.4 pg (28.0-32.0); Mean Corpuscular Volume 87.8 fL (80.0-100.0); Nucleated Red Blood Cells % 0.1 %
[2024-10-28 09:38] LABS: Albumin 4.0 g/dL (3.2-4.8); Alkaline Phosphatase 96 U/L (46-116); Anion Gap 10 (5-15); BUN/Creatinine Ratio 13.6 (10.0-20.0); Blood Urea Nitrogen 14 mg/dL (9-23); Calcium 10.0 mg/dL (8.7-10.4); Carbon Dioxide 25 mmol/L (20-31); Chloride 103 mmol/L (98-107); Potassium 3.8 mmol/L (3.5-5.1); Sodium 138 mmol/L (136-145); Total Protein 6.0 g/dL (5.7-8.2)
[2024-10-28 09:46] LABS: Alanine Aminotransferase < 9 U/L (7-40); Bilirubin, Total 0.3 mg/dL (0.2-1.0); Glucose 310 mg/dL (74-106)
[2024-10-28] MEDS: CLOPIDOGREL BISULFATE 75 MG TAB PO SCH (09:54)
[2024-10-28] MEDS: INSULIN LANTUS (GLARGINE) 1 /0.01ml (100units/ml) SC SCH (10:05)
[2024-10-28] MEDS ORDERED: METR-344 PO (10:34)
--- NOTE | 2024-10-28 10:34 | DVHDS2 ---
Discharge Summary Date of Admission Oct 22, 2024 at 22:39 Date of Discharge: Oct 28, 2024 Admitting Diagnosis Chest pain ACS ruled out Labs/Diagnostic Data: Laboratory Results Test 10/28/24 09:56 10/28/24 08:56 10/24/24 18:45 10/24/24 06:28 POC Glucose 313 mg/dl (70-106) White Blood Count 11.5 10^3/uL (4.4-10.8) Red Blood Count 4.14 10^6/uL (4.0-5.20) Hemoglobin 12.2 g/dL (12.2-16.2) Hematocrit 36.4 % (36.0-46.0) Mean Corpuscular Volume 87.8 fL (80.0-100.0) Mean Corpuscular Hemoglobin 29.4 pg (28.0-32.0) Mean Corpuscular Hemoglobin Concent 33.5 g/dL (32.0-36.0) Red Cell Distribution Width 15.4 % (11.8-14.3) Platelet Count 219 10^3/uL (140-450) Mean Platelet Volume 8.5 fL (6.9-10.8) Neutrophils (%) (Auto) 88.0 % (37.0-80.0) Lymphocytes (%) (Auto) 8.9 % (10.0-50.0) Monocytes (%) (Auto) 2.7 % (0.0-12.0) Eosinophils (%) (Auto) 0.0 % (0.0-7.0) Basophils (%) (Auto) 0.4 % (0.0-2.0) Neutrophils # (Auto) 10.1 10 ^3/uL (1.6-8.6) Lymphocytes # (Auto) 1.0 10 ^3/uL (0.4-5.4) Monocytes # (Auto) 0.3 10 ^3/uL (0-1.3) Eosinophils # (Auto) 0 10 ^3/uL (0-0.8) Basophils # (Auto) 0.1 10 ^3/uL (0-0.2) Nucleated Red Blood Cells 0.1 % Sodium Level 138 mmol/L (136-145) Potassium Level 3.8 mmol/L (3.5-5.1) Chloride Level 103 mmol/L (98-107) Carbon Dioxide Level 25 mmol/L (20-31) Anion Gap 10 (5-15) Blood Urea Nitrogen 14 mg/dL (9-23) Creatinine 1.03 mg/dL (0.550-1.02) Glomerular Filtration Rate Calc 62 mL/min (>90) BUN/Creatinine Ratio 13.6 (10.0-20.0) Serum Glucose 310 mg/dL (74-106) Calcium Level 10.0 mg/dL (8.7-10.4) Total Bilirubin 0.3 mg/dL (0.2-1.0) Aspartate Amino Transferase (AST) 14 U/L (13-40) Alanine Aminotransferase (ALT) < 9 U/L (7-40) Alkaline Phosphatase 96 U/L (46-116) Total Protein 6.0 g/dL (5.7-8.2) Albumin 4.0 g/dL (3.2-4.8) Prothrombin Time 10.0 sec (9.3-11.8) Prothrombin Time INR 0.94 (0.9-1.15) Activated Partial Thromboplast Time 24.8 SEC (24.5-34.5) C-Reactive Protein High Sensitivity 0.95 mg/dL (<1.0) Test 10/23/24 20:26 10/22/24 22:36 10/22/24 20:20 10/22/24 19:40 Stool Occult Blood Negative (Negative) Stool Occult Blood Sample #3 (Negative) Troponin I High Sensitivity < 3 ng/L (</=34) Urine Color Yellow (Yellow) Urine Clarity Turbid (Clear) Urine pH 5.5 (5.0-9.0) Urine Specific [place] 1.016 (1.001-1.035) Urine Protein Negative (Negative) Urine Ketones Negative (Negative) Urine Blood Negative /uL (Negative) Urine Nitrite Negative (Negative) Urine Bilirubin Negative (Negative) Urine Urobilinogen Normal mg/dL (Negative) Urine Leukocyte Esterase 2+ /uL (Negative) Urine RBC 6 /hpf (0 - 4) Urine Microscopic WBC 65 /HPF (0-5) Urine Squamous Epithelial Cells Few /hpf (<5) Urine Calcium Oxalate Crystals Few (None Seen) Urine Bacteria Few /hpf (None Seen) Urine Hyaline Casts Mod /lpf (0 - 2) Urine Glucose Normal mg/dL (Normal) B-Type Natriuretic Peptide 7.90 pg/mL (0-100) Other Laboratory Tests 10/28/24 08:56 Brief Hx & Hospital Course: Patient was initially admitted for chest pain, ACS was ruled out patient was seen and cleared by tool crib attendant. She is to continue her dual antiplatelet therapy as per Cardiology patient has history of recent stent placement and [place]. Patient was also having abdominal pain left lower quadrant CT showed hyperdense area to the left lower quadrant patient did undergo excisional biopsy of left lower quadrant mass by Dr. Koenig. Patient will need to follow up within one week of discharge for biopsy results Condition at Discharge: Fair Final Diagnosis/Problems List . Unstable angina 2. Rectal bleeding 3. CAD s/p stent x 2 Monitor, PPI 4. HLD 5. Hx of ulcerative colitis 6. Hx of CVA with residual deficits 7. CKD 3 A Discharge Disposition: Home Discharge Instruct/Medications Diet: Cardiac 2g Na,low cholest Activity: Bed rest Follow Up/Referral: pcp within 1 week needs to review abdominal mass biopsy Scheduled Aspirin (Aspirin Low Dose), 1 TAB PO DAILY, (Reported) Atorvastatin Calcium (Atorvastatin Calcium), 1 TAB PO DAILY, (Reported) Balsalazide Disodium (Balsalazide Disodium), 3 CAP PO BID, (Reported) Cholecalciferol (Vitamin D-3 Super Strengt), 1 TAB PO DAILY, (Reported) Clopidogrel Bisulfate (Clopidogrel), 1 TAB PO DAILY, (Reported) Docusate Sodium (Docusate Sodium), 1 CAP PO BID, (Reported) Furosemide (Furosemide), 1 TAB PO BID, (Reported) Gabapentin (Gabapentin), 1 CAP PO Q8HR, (Reported) Isosorbide Mononitrate (Isosorbide Mononitrate Er), 1 TAB PO DAILY Lidocaine (Lidoderm 5% Topical Patch), 1 PATCH TOP DAILY Metronidazole (Flagyl), 500 MG PO TID Paroxetine Hydrochloride (Paroxetine Hydrochloride), 1 TAB PO DAILY, (Reported) Polyethylene Glycol 3350 (Miralax), 17 GM PO DAILY Potassium Chloride (Potassium Chloride ER), 1 TAB PO BID, (Reported) Ranolazine (Ranolazine ER), 500 MG PO BID Simvastatin (Simvastatin), 1 TAB PO DAILY, (Reported) Sitagliptin Phosphate (Januvia), 1 TAB PO DAILY, (Reported) Tirzepatide (Mounjaro), 7.5 MG SC QWEEKLY, (Reported) Scheduled PRN Albuterol Sulfate (Albuterol Sulfate Hfa), 108 MCG IN BID PRN Baclofen (Baclofen), 5 MG PO Q8HP PRN Hydrocodone-Acetaminophen (Hydrocodone Bitartrate/AC 10-325 mg), 1 TAB PO Q6HR PRN for CHRONIC PAIN, (Reported) Hydrocodone-Acetaminophen (Hydrocodone Bitartrate/AC 5-325 mg), 1 TAB PO Q8HP PRN Discharge Statement: "Patient was advised to return to the ER or call 911 if any headaches, dizziness, shortness of breath, chest pain, abdominal pain, bleeding, fevers, or worsening of medical condition. Patient was counseled about treatment plan, medications, possible side effects, patientverbalized understanding. All questions were answered to the best of my ability. This discharge took greater then 30 minutes in planning, reviewing documentation, counseling the patient, and discussing with other team members." ASSESSMENT ASSESSMENT Assessment . Unstable angina 2. Rectal bleeding 3. CAD s/p stent x 2 Monitor, PPI 4. HLD 5. Hx of ulcerative colitis 6. Hx of CVA with residual deficits 7. CKD 3 A [employer] Oct 28, 2024 10:34
[2024-10-28 10:54] VITALS: BP 136/87; PULSE 67; RESP 20; TEMP 98.2; O2SAT 96
--- NOTE | 2024-11-17 11:03 | DVHOP2 ---
Operative Report - 2 Report Details Date: 10/25/2024 Preop Diagnosis: 1. Abdominal wall soft tissue neoplasm Postop Diagnosis: 1. Same 3. CAD s/p stent x 2 Monitor, PPI 4. HLD 5. Hx of ulcerative colitis 6. Hx of CVA with residual deficits 7. CKD 3 A Surgeon: Jarek Stone MD Personal Attendant: None Anesthesiologist: Dr. Aguero Anesthesia: General Consent: The surgery and its risks including but not limited to infection, bleeding requiring possible blood transfusion with the risk of hepatitis or HIV infection, possible perioperative NH or stroke, possible mass recurrence were explained to the patient. All questions were answered to her satisfaction. She expressed verbal understanding and wished to proceed with the surgery. Complications: None Estimated Blood Loss: Minimal Name of Procedure Performed Resection of abdominal wall soft tissue neoplasm Procedure Details Procedure Details: After induction of general anesthesia, patient's abdomen was prepped and draped in standard surgical fashion. Transverse incision was made over the palpable mass in the left lower abdominal wall. Incision extended through the soft tissue and the mass was completely excised and sent off to pathology. There was no muscular infiltration. The surgical site was well irrigated and checked for hemostasis. The overlying soft tissue was reapproximated using interrupted 2-0 Vicryl sutures and skin incision was then closed using antoni. Surgical sites were cleaned and dried and dressings were applied. Sponge, needle, instrument count at the end of the case were reported to be correct the nursing staff. The patient tolerated procedure well and was awakened and extubated and transferred to recovery in stable condition. Specimen: Abdominal wall soft tissue neoplasm Condition Stable Disposition Still a Patient JAREK STONE MD Nov 17, 2024 11:03
== END 2024-10-28 11:30 | disposition home or self-care (01) | DRG 303 ==
LOC: ER 19:22 → OVERFLOW 22:39 → TELE-CENTR 10-23 13:40
PROVIDERS: ADMIT Nurse Practitioner; ATTEND Nurse Practitioner
PROC: 0JB80ZX Excision of Abdomen Subcutaneous Tissue and Fascia, Open Approach, Diagnostic (ICD-10-PCS; principal; 2024-10-27 09:48)
DX: I25.110 Atherosclerotic heart disease of native coronary artery with unstable angina pectoris (principal); I69.354 Hemiplegia and hemiparesis following cerebral infarction affecting left non-dominant side; K62.5 Hemorrhage of anus and rectum; I13.0 Hypertensive heart and chronic kidney disease with heart failure and stage 1 through stage 4 chronic kidney disease, or unspecified chronic kidney disease; I50.32 Chronic diastolic (congestive) heart failure; E78.5 Hyperlipidemia, unspecified; E66.9 Obesity, unspecified; K59.00 Constipation, unspecified; F32.A Depression, unspecified; F41.9 Anxiety disorder, unspecified; K57.30 Diverticulosis of large intestine without perforation or abscess without bleeding; N18.31 Chronic kidney disease, stage 3a; N20.0 Calculus of kidney; Z68.33 Body mass index [BMI] 33.0-33.9, adult; M06.9 Rheumatoid arthritis, unspecified; C44.509 Unspecified malignant neoplasm of skin of other part of trunk; E11.22 Type 2 diabetes mellitus with diabetic chronic kidney disease; Z88.0 Allergy status to penicillin; Z91.040 Latex allergy status; Z90.49 Acquired absence of other specified parts of digestive tract; Z79.82 Long term (current) use of aspirin; Z79.84 Long term (current) use of oral hypoglycemic drugs; Z79.899 Other long term (current) drug therapy; Z82.0 Family history of epilepsy and other diseases of the nervous system; Z80.3 Family history of malignant neoplasm of breast; Z80.0 Family history of malignant neoplasm of digestive organs; Z83.3 Family history of diabetes mellitus; Z82.49 Family history of ischemic heart disease and other diseases of the circulatory system; Z95.5 Presence of coronary angioplasty implant and graft; Z87.442 Personal history of urinary calculi; Z79.02 Long term (current) use of antithrombotics/antiplatelets; I69.320 Aphasia following cerebral infarction; Z91.148 Patient's other noncompliance with medication regimen for other reason; Z85.038 Personal history of other malignant neoplasm of large intestine; Z85.42 Personal history of malignant neoplasm of other parts of uterus
CPT/HCPCS: 36415; 71045; 74176; 80048; 80053; 81001; 82270; 82962; 83880; 84484; 85025; 85610; 85730; 86141; 93005; G0378; J1100; J1815; J2250; J2405; J2704; J3490

== ENCOUNTER 2024-11-10 14:01 | Inpatient (IN) | payer MEDICARE, MEDICAID ==
[~2024-11-10] VITALS: Ht 157.5 cm; Wt 83.4 kg
[~2024-11-10 14:01] MED LIST changes: +METR-344 PO
--- NOTE | 2024-11-10 14:26 | ED.PDOC ---
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 prior to this visit. The patient states that the chest pain is substernal, heaviness with sharp stabbing pain in the chest, localized, 9/10 and associated with shortness of breath, dizziness, diaphoresis and nausea. She also mentioned that in June 2024 she underwent PTCA x2. She had history of stroke 2 times with residual weakness on the left side and also speech difficulty since the stroke . She denies headache, blurred vision, abd ominal pain, vomiting, dysuria, hematuria or any change in the bowel habit. PCP: Dr. Morales Brainer: Dr. Parsons Chief Complaint: Chest Pain Time Seen by MD: 14:04 Primary Care Provider: unknown Allergies: Coded Allergies: Latex (Verified Allergy, Mild, 06/02/24) INCLUDING TAPE, BROWN AND CLEAR TAPE Aspirin (Verified Allergy, Unknown, 11/10/24) Penicillins (Verified Allergy, Unknown, 07/30/24) Procaine (Verified Allergy, Unknown, 03/12/14) Home Meds Active Scripts Metronidazole (Flagyl) 500 Mg Tab, 500 MG PO TID for 14 Days, #42 TAB Prov:TAMI ROOT 10/28/24 Hydrocodone-Acetaminophen (Hydrocodone Bitartrate/AC 5-325 mg) 1 Tab Tab, 1 TAB PO Q8HP PRN for 5 Days, #15 TAB Prov:SEAN ZEPEDA MD 09/30/24 Ranolazine (Ranolazine ER) 500 Mg Tab, 500 MG PO BID for 30 Days, #60 TAB Prov:TED HUSSEIN NP 07/30/24 Baclofen (Baclofen) 10 Mg Tab, 5 MG PO Q8HP PRN for 7 Days, #21 TAB Prov:TED HUSSEIN NP 07/30/24 Isosorbide Mononitrate (Isosorbide Mononitrate Er) 30 Mg Tab, 1 TAB PO DAILY, #30 TAB 5 Refills Prov:TED HUSSEIN NP 07/30/24 Lidocaine (LIDODERM 5% TOPICAL PATCH) 1 Patch Ph, 1 PATCH TOP DAILY for 30 Days, #30 PATCH 0 Refills Prov:MIAN ROMO [employer]CHITECTURAL EXAMINER 06/02/24 Polyethylene Glycol 3350 (Miralax) 17 Gm Pow, 17 GM PO DAILY for 15 Days, #15 POW Prov:TED HUSSEIN Kim [employer]CHITECTURAL EXAMINER 05/03/24 Albuterol Sulfate (Albuterol Sulfate Hfa) 108 Mcg/Act Aer, 108 MCG IN BID PRN for 10 Days, #1 AER 0 Refills Prov:LILI LUNSFORD DO 12/01/22 Reported Medications Docusate Sodium (Docusate Sodium) 100 Mg Cap, 1 CAP PO BID for 30 Days, #60 07/03/24 Simvastatin (Simvastatin) 20 Mg Tab, 1 TAB PO DAILY for 90 Days, #90 07/03/24 Hydrocodone-Acetaminophen (Hydrocodone Bitartrate/AC 10-325 mg) 1 Tab Tab, 1 TAB PO Q6HR PRN for CHRONIC PAIN for 30 Days, #120 07/03/24 Potassium Chloride (Potassium Chloride ER) 10 Meq Tab, 1 TAB PO BID for 90 Days, #180 07/03/24 Paroxetine Hydrochloride (Paroxetine Hydrochloride) 20 Mg Tab, 1 TAB PO DAILY for 90 Days, #90 05/01/24 Tirzepatide (Mounjaro) 7.5 Mg/0.5 Ml Inj, 7.5 MG SC QWEEKLY for 28 Days, #2 10/18/23 Sitagliptin Phosphate (Januvia) 100 Mg Tab, 1 TAB PO DAILY 10/18/23 Clopidogrel Bisulfate (CLOPIDOGREL) 75 Mg Tab, 1 TAB PO DAILY 10/18/23 Furosemide (Furosemide) 40 Mg Tab, 1 TAB PO BID 10/18/23 Atorvastatin Calcium (ATORVASTATIN CALCIUM) 20 Mg Tab, 1 TAB PO DAILY 10/17/23 Cholecalciferol (Vitamin D-3 Super Strengt) 2,000 Unit Tab, 1 TAB PO DAILY 10/17/23 Gabapentin (Gabapentin) 300 Mg Cap, 1 CAP PO Q8HR for NEUROPATHIC PAIN for 30 Days, #90 10/17/23 Aspirin (Aspirin Low Dose) 81 Mg Tab, 1 TAB PO DAILY 10/17/23 Balsalazide Disodium (Balsalazide Disodium) 750 Mg Cap, 3 CAP PO BID for 30 Days, #180 10/17/23 Information Source: Patient Mode of Arrival: EMS Severity: Moderate Timing: Hours Duration: Since onset Prehospital treatment: NTG Past Medical History PAST MEDICAL HISTORY: Angina, CAD, Cancer, CHF, CVA, DM, High Lipids, Kidney Stones, Liver, OR Surgical History: Cholecystectomy, Hernia Repair, PTCA [employer] History: No Pertinent [employer]ERSON History Family History Family History: Reviewed,noncontributory to illness, Family hx of Cancer, Family hx of heart naveen Social History Smoker: Non-Smoker Alcohol: Denies ETOH Use Drugs: Denies Drug Use Lives In: Home Constitutional: reports: sweats; denies: chills, diaphoresis, fatigue, fever, malaise, weakness, others EENTM: denies: blurred vision, double vision, ear bleeding, ear discharge, ear drainage, ear pain, ear ringing, eye pain, eye redness, hearing loss, mouth pa in, mouth swelling, nasal discharge, nose bleeding, nose congestion, nose pain, photophobia, tearing, throat pain, throat swelling, voice changes, others Respiratory: reports: shortness of breath; denies: cough, hemoptysis, orthopnea, SOB at rest, SOB with excertion, stridor, wheezing, others Cardiovascular: reports: chest pain, lightheadedness; denies: dizzy spells, diaphoresis, Dyspnea on exertion, edema, irregular heart beat, left arm pain, palpitations, PND, syncope, others Gastrointestinal: reports: abdominal pain, nausea; denies: abdomen distended, blood streaked bowels, constipated, diarrhea, dysphagia, difficulty swallowing, hematemesis, melena, poor appetite, poor fluid intake, rectal bleeding, rectal pain, vomiting, others Genitourinary: denies: abnormal vagina bleeding, burning, dyspareunia, dysuria, flank pain, frequency, hematuria, incontinence, pain, , vagina discharge, urgency, others Neurological: denies: dizziness, fainting, headache, left sided numbness, left sided weakness, numbness, paresthesia, pre-existing deficit, right sided numbness, right sided weakness, seizure, speech problems, tingling, tremors, weakness, others Musculoskeletal: denies: back pain, gout, joint pain, joint swelling, muscle pain, muscle stiffness, neck pain, others Integumetry: denies: bruises, change in color, change in hair/nails, dryness, laceration, lesions, lumps, rash, wounds, others Allergic/Immunocompromised: denies: Difficulty Healing, Frequent Infections, Hives, Itching, others Hematologic/Lymphatic: denies: anemia, blood clots, easy bleeding, easy bruising, swollen glands, others Endocrine: denies: excessive hunger, excessive sweating, excessive thirst, excessive urination, flushing, intolerance to cold, intolerance to heat, unexplained weight gain, unexplained weight loss, others Psychiatric: denies: anxiety, bipolar disorder, depression, hopeless, panic disorder, schizophrenia, sleepless, suicidal, others Physical Exam General Appearance: Mild Distress HEENT: Normal ENT Inspection, Pharynx Normal, TMs Normal Neck: Carotid Bruit Respiratory: Chest Non-Tender, Lungs Clear, No Accessory Muscle Use, No Respiratory Distress, Normal Breath Sounds Cardiovascular: No Edema, No JVD, No Murmur, No Gallop, Normal Peripheral Pulses, Regular Rate/Rhythm Breast Exam: Deferred Gastrointestinal: Distended (A small incision ken with stapler in the right lower abdomen, status post removal of abdominal wall mass), No Pulsatile Mass, Normal Bowel Sounds, Soft Genitalia: Deferred Pelvic: Deferred Rectal: Deferred Extremities: NOT DONE Neurologic: NOT DONE Cerebellar Function: NOT DONE Reflexes: NOT DONE Skin: NOT DONE Peripheral Pulses: 2+ carotid (R), 2+ carotid (L), 2+ femoral (R), 2+ femoral (L), 2+ dorsalis pedis (R), 2+ dorsalis pedis (L), 2+ Radial (R), 2+ Radial (L), 2+ Brachial (R), 2+ Brachial (L) Lymphatic: NOT DONE Was a procedure done? Was a procedure done?: No Differential Dx Considerations may include: Unstable angina, CHF, CVA with residual deficit on the left side X-Ray, Labs, Meds, VS Vital Signs Date Time Temp Pulse Resp B/P (MAP) Pulse Ox O2 Delivery O2 Flow Rate FiO2 11/10/24 16:56 75 18 102/68 (79) 99 11/10/24 14:05 98.0 78 16 125/76 96 98.0 11/10/24 14:04 76 Lab Test 11/10/24 14:39 Range/Units White Blood Count 7.0 4.4-10.8 10^3/uL Red Blood Count 4.39 4.0-5.20 10^6/uL Hemoglobin 13.2 12.2-16.2 g/dL Hematocrit 39.4 36.0-46.0 % Mean Corpuscular Volume 89.7 80.0-100.0 fL Mean Corpuscular Hemoglobin 30.1 28.0-32.0 pg Mean Corpuscular Hemoglobin Concent 33.5 32.0-36.0 g/dL Red Cell Distribution Width 16.0 H 11.8-14.3 % Platelet Count 215 140-450 10^3/uL Mean Platelet Volume 8.6 6.9-10.8 fL Neutrophils (%) (Auto) 71.9 37.0-80.0 % Lymphocytes (%) (Auto) 21.2 10.0-50.0 % Monocytes (%) (Auto) 3.3 0.0-12.0 % Eosinophils (%) (Auto) 3.0 0.0-7.0 % Basophils (%) (Auto) 0.6 0.0-2.0 % Neutrophils # (Auto) 5.0 1.6-8.6 10 ^3/uL Lymphocytes # (Auto) 1.5 0.4-5.4 10 ^3/uL Monocytes # (Auto) 0.2 0-1.3 10 ^3/uL Eosinophils # (Auto) 0.2 0-0.8 10 ^3/uL Basophils # (Auto) 0 0-0.2 10 ^3/uL Nucleated Red Blood Cells 0.1 % Sodium Level 143 136-145 mmol/L Potassium Level 4.8 3.5-5.1 mmol/L Chloride Level 110 H 98-107 mmol/L Carbon Dioxide Level 23 20-31 mmol/L Anion Gap 10 5-15 Blood Urea Nitrogen 16 9-23 mg/dL Creatinine 1.21 H 0.550-1.02 mg/dL Glomerular Filtration Rate Calc 51 >90 mL/min BUN/Creatinine Ratio 13.2 10.0-20.0 Serum Glucose 282 H 74-106 mg/dL Calcium Level 8.9 8.7-10.4 mg/dL Total Bilirubin 0.4 0.2-1.0 mg/dL Aspartate Amino Transferase (AST) 12 L 13-40 U/L Alanine Aminotransferase (ALT) < 9 7-40 U/L Alkaline Phosphatase 102 46-116 U/L Troponin I High Sensitivity < 3 L </=34 ng/L B-Type Natriuretic Peptide 17.82 0-100 pg/mL Total Protein 5.6 L 5.7-8.2 g/dL Albumin 4.1 3.2-4.8 g/dL X-Ray, Labs, Meds, VS Comment CHEST RADIOGRAPH Indication: Chest pain Technique: XY CHEST PORTABLE Comparison: None FINDINGS: The cardiac silhouette is unremarkable. The lungs demonstrate no pulmonary airspace consolidation. The pulmonary vasculature is mildly prominent. There is no pleural effusion. There is no pneumothorax. IMPRESSION: Mild pulmonary vasculature congestion. Images Reviewed?: Images reviewed and evaluated by me Time of 1ST Reevaluation: 19:00 Reevaluation 1ST: Improved Patient Education/Counseling: Diagnosis, Treatment Family Education/Counseling: No Family Present SEPSIS Sepsis Screen Date sepsis recognized/suspect: Nov 10, 2024 Time Sepsis recognized/suspect: 1405 Recent Procedure: No On Antibiotic Therapy: No Respiratory Rate >20: No Heart Rate >90: No Temp<36 C (96.8 F) or >38.3 C: No SBP <90 or MAP <65 mmHG: No New Acute Mental Status Change: No Is the patient on CPAP, BIPAP,: No Physician Orders Chest Portable (11/10/24 14:20) Urinalysis (11/10/24 14:20) Electrocardigram (11/10/24 14:22) Vital Signs Date Time Temp Pulse Resp B/P (MAP) Pulse Ox O2 Delivery O2 Flow Rate FiO2 11/10/24 16:56 75 18 102/68 (79) 99 11/10/24 14:05 98.0 78 16 125/76 96 98.0 11/10/24 14:04 76 Laboratory Tests Test 11/10/24 14:39 White Blood Count 7.0 10^3/uL (4.4-10.8) Departure 1 Departure Time of Disposition: 17:04 Impression: Primary Impression: Unstable angina Disposition: 30 STILL A PATIENT Admit to: Tele Condition: Guarded Critical Care Note Critical Care Time?: No Stability Stability form required: SHAYLA Stephenson RESIDENT Nov 10, 2024 14:26
[2024-11-10 14:55] LABS: Hematocrit 39.4 % (36.0-46.0); Hemoglobin 13.2 g/dL (12.2-16.2); Mean Corpuscular Hemoglobin 30.1 pg (28.0-32.0); Mean Corpuscular Volume 89.7 fL (80.0-100.0); Nucleated Red Blood Cells % 0.1 %
[2024-11-10 15:10] LABS: Albumin 4.1 g/dL (3.2-4.8); Alkaline Phosphatase 102 U/L (46-116); Anion Gap 10 (5-15); BUN/Creatinine Ratio 13.2 (10.0-20.0); Blood Urea Nitrogen 16 mg/dL (9-23); Calcium 8.9 mg/dL (8.7-10.4); Carbon Dioxide 23 mmol/L (20-31); Potassium 4.8 mmol/L (3.5-5.1); Sodium 143 mmol/L (136-145)
[2024-11-10 15:11] LABS: Alanine Aminotransferase < 9 U/L (7-40); Bilirubin, Total 0.4 mg/dL (0.2-1.0); Chloride 110 mmol/L (98-107); Glucose 282 mg/dL (74-106); Total Protein 5.6 g/dL (5.7-8.2)
--- NOTE | 2024-11-10 15:51 | DVH ---
CHEST RADIOGRAPH Indication: Chest pain Technique: XY CHEST PORTABLE Comparison: None FINDINGS: The cardiac silhouette is unremarkable. The lungs demonstrate no pulmonary airspace consolidation. Th e pulmonary vasculature is mildly prominent. There is no pleural effusion. There is no pneumothorax. IMPRESSION: Mild pulmonary vasculature congestion.
--- NOTE | 2024-11-10 18:48 | ECG ---
[facility] Test Date: 2024-11-10 Test Time: 14:04:57 Pat Name: KAVYA TEJEDA Department: ED Room: [address] [place] [address] Gender: F Hospitalist: ciara : 1965 Requested By: SHAYLA HAMLIN Order Number: [id number] Reading MD: Humberto Alvarez Measurements Intervals [place] Rate: 76 P: 14 NE: 159 QRS: -45 QRSD: 107 T: -26 QT: 387 QTc: 436 Interpretive Statements Sinus rhythm LAD, consider left anterior fascicular block Abnormal R-wave progression, late transition Nonspecific T abnormalities, diffuse leads Electronically Signed On 11-10-2024 22:12:12 PDT by Humberto Alvarez Please click the below link to view image of tracing.
[2024-11-10] MEDS ORDERED: NITROGLYCERIN 0.4 MG SL TAB SL PRN ×2 (20:15)
[2024-11-10] MEDS ORDERED: ONDANSETRON HCL 4 MG/2 ML VIAL IV PRN (20:15)
[2024-11-10] MEDS ORDERED: DEXTROSE (50%) 50ML SYRG IV PRN (20:15)
[2024-11-11] MEDS: ACCU-CHEK COMFORT CURVE STRIP VI SCH (00:56)
[2024-11-11] MEDS: RANOLAZINE ER 500 MG TAB PO SCH (01:03)
[2024-11-11] MEDS: InsuLIN REG 1unit/0.01ml Soln (100units/ml) SC SCH ×2 (01:03→06:31)
[2024-11-11] MEDS: HYDROcodone-ACET 5/325MG TAB PO ONE (01:04)
[2024-11-11] MEDS: GABAPENTIN 300 MG CAP PO SCH (01:04)
[2024-11-11] MEDS: FUROSEMIDE 40 MG TAB PO SCH (01:08)
[2024-11-11 05:23] LABS: Hematocrit 37.5 % (36.0-46.0); Hemoglobin 12.9 g/dL (12.2-16.2); Mean Corpuscular Hemoglobin 30.3 pg (28.0-32.0); Mean Corpuscular Volume 87.8 fL (80.0-100.0); Nucleated Red Blood Cells % 0.1 %
[2024-11-11 05:39] LABS: Albumin 4.1 g/dL (3.2-4.8); Alkaline Phosphatase 96 U/L (46-116); Anion Gap 11 (5-15); BUN/Creatinine Ratio 18.8 (10.0-20.0); Blood Urea Nitrogen 18 mg/dL (9-23); Calcium 9.1 mg/dL (8.7-10.4); Carbon Dioxide 23 mmol/L (20-31); Potassium 3.7 mmol/L (3.5-5.1); Sodium 145 mmol/L (136-145); Total Protein 6.0 g/dL (5.7-8.2)
[2024-11-11 05:40] LABS: Bilirubin, Total 0.4 mg/dL (0.2-1.0)
[2024-11-11 05:43] LABS: Alanine Aminotransferase < 9 U/L (7-40); Chloride 111 mmol/L (98-107); Glucose 108 mg/dL (74-106)
[2024-11-11] MEDS: PARoxetine 20 MG TAB PO SCH (09:28)
[2024-11-11] MEDS: ISOSORBIDE MONONITRATE ER 60 MG TAB PO SCH (09:28)
[2024-11-11] MEDS: CLOPIDOGREL BISULFATE 75 MG TAB PO SCH (09:29)
[2024-11-11] MEDS: ATORVASTATIN 20 MG TAB PO SCH (09:29)
[2024-11-11] MEDS: MORPHINE SULFATE INJ 2 MG/ml SYRG IV PRN (09:36)
[2024-11-11] MEDS ORDERED: PATIENTS OWN MEDICATION (Simvastatin 1 TAB) PO SCH (10:00)
[2024-11-11 11:40] VITALS: PULSE 75; RESP 14; O2SAT 98
--- NOTE | 2024-11-11 12:03 | DVHINCON2 ---
Date of service: Nov 11, 2024 History of Present Illness HPI Patient is a 59-year-old male who presented with 1 day history of chest discomfort. Cardiology is involved for cardiac aspects of care. She mentions that she was not taking her medications for few days prior to the presentation. She is known to our practice from previously admitted occasions and prior outside visits. It is of note that she was in the hospital in July for comparative presentation. During earlier admission in June/2024, the patient did have some chest pain with abnormal troponin and was found to have non-STEMI. Cardiac catheterization at that point revealed multivessel coronary artery disease and the patient was sent to [place] for the suggested CABG surgery. It seems that in [place] they did not do the CABG and the patient had only 1 stent. Later the patient was discharged home from [place]. In the middle of July patient came back with chest discomfort to our facility and with diagnosis of unstable angina was sent back to [place]. In [place], the patient again had another stent. I had an opportunity to talk to the supervisor doping in [place]. It seems that during the 1st admission to [place], they did put 1 stent in LAD. During the 2nd admission they put another stent in circumflex. It is of note that the patient did have LAD with trifurcation with disease in all of them. Reportedly (as per supervisor doping in [place]) LAD stent has resulted in pinching of the diagonals. Patient mentions compliance with aspirin/Plavix. It is of note that the patient had some type of abdominal biopsy few days back. Home Meds Active Scripts Metronidazole (Flagyl) 500 Mg Tab, 500 MG PO TID for 14 Days, #42 TAB Prov:TAMI ROOT 10/28/24 Hydrocodone-Acetaminophen (Hydrocodone Bitartrate/AC 5-325 mg) 1 Tab Tab, 1 TAB PO Q8HP PRN for 5 Days, #15 TAB Prov:SEAN ZEPEDA MD 09/30/24 Ranolazine (Ranolazine ER) 500 Mg Tab, 500 MG PO BID for 30 Days, #60 TAB Prov:TED HUSSEIN NP 07/30/24 Baclofen (Baclofen) 10 Mg Tab, 5 MG PO Q8HP PRN for 7 Days, #21 TAB Prov:TED HUSSEIN LEARNING AND DEVELOPMENT DIRECTOR 07/30/24 Isosorbide Mononitrate (Isosorbide Mononitrate Er) 30 Mg Tab, 1 TAB PO DAILY, #30 TAB 5 Refills Prov:TED HUSSEIN LEARNING AND DEVELOPMENT DIRECTOR 07/30/24 Lidocaine (LIDODERM 5% TOPICAL PATCH) 1 Patch Ph, 1 PATCH TOP DAILY for 30 Days, #30 PATCH 0 Refills Prov:MIAN ROMO LEARNING AND DEVELOPMENT DIRECTOR 06/02/24 Polyethylene Glycol 3350 (Miralax) 17 Gm Pow, 17 GM PO DAILY for 15 Days, #15 POW Prov:TED HUSSEIN LEARNING AND DEVELOPMENT DIRECTOR 05/03/24 Albuterol Sulfate (Albuterol Sulfate Hfa) 108 Mcg/Act Aer, 108 MCG IN BID PRN for 10 Days, #1 AER 0 Refills Prov:LILI LUNSFORD DO 12/01/22 Reported Medications Docusate Sodium (Docusate Sodium) 100 Mg Cap, 1 CAP PO BID for 30 Days, #60 07/03/24 Simvastatin (Simvastatin) 20 Mg Tab, 1 TAB PO DAILY for 90 Days, #90 07/03/24 Hydrocodone-Acetaminophen (Hydrocodone Bitartrate/AC 10-325 mg) 1 Tab Tab, 1 TAB PO Q6HR PRN for CHRONIC PAIN for 30 Days, #120 07/03/24 Potassium Chloride (Potassium Chloride ER) 10 Meq Tab, 1 TAB PO BID for 90 Days, #180 07/03/24 Paroxetine Hydrochloride (Paroxetine Hydrochloride) 20 Mg Tab, 1 TAB PO DAILY for 90 Days, #90 05/01/24 Tirzepatide (Mounjaro) 7.5 Mg/0.5 Ml Inj, 7.5 MG SC QWEEKLY for 28 Days, #2 10/18/23 Sitagliptin Phosphate (Januvia) 100 Mg Tab, 1 TAB PO DAILY 10/18/23 Clopidogrel Bisulfate (CLOPIDOGREL) 75 Mg Tab, 1 TAB PO DAILY 10/18/23 Furosemide (Furosemide) 40 Mg Tab, 1 TAB PO BID 10/18/23 Atorvastatin Calcium (ATORVASTATIN CALCIUM) 20 Mg Tab, 1 TAB PO DAILY 10/17/23 Cholecalciferol (Vitamin D-3 Super Strengt) 2,000 Unit Tab, 1 TAB PO DAILY 10/17/23 Gabapentin (Gabapentin) 300 Mg Cap, 1 CAP PO Q8HR for NEUROPATHIC PAIN for 30 Days, #90 10/17/23 Aspirin (Aspirin Low Dose) 81 Mg Tab, 1 TAB PO DAILY 10/17/23 Balsalazide Disodium (Balsalazide Disodium) 750 Mg Cap, 3 CAP PO BID for 30 Days, #180 10/17/23 Past Medical History Others Past medical history includes coronary artery disease, diabetes mellitus, 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 She has had kidney stones/hydronephrosis/hydroureter before. Uses a walker for ambulation (secondary to old CVA). Patient was found to have multivessel coronary artery disease (left heart catheterization of July 09, 2024). On July 12 2024, the patient was sent to higher level of care ([place]) for possible CABG surgery. Patient ended up having 1 stent in LAD and CABG was not performed. At next presentation, patient was sent back to [place] and had another stent (this time in LCX). Reportedly the patient does have pinching of diagonals. Patient Family History: FH: breast cancer G8 SISTER FH: cancer FH: liver cancer G8 MOTHER, , Cause: Liver cancer Family history: Alzheimer's disease G8 MOTHER, , Cause: Liver cancer, Onset:Unknown Family history: Cardiovascular disease G8 FATHER, , Cause: CHF (congestive heart failure), Onset:Unknown Family history: Diabetes mellitus G8 BROTHER, Onset:Unknown Thyroid disease 19 CHILD Thyroid disease 19 CHILD Smoker: No Hx (Negative) Drugs: None Review of Systems Constitutional: No symptom reported Ears, Nose, & Throat: No symptom reported Cardiovascular: Chest Pain H&P Exam Vital Signs Vital Signs Date Time Temp Pulse Resp B/P (MAP) Pulse Ox O2 Delivery O2 Flow Rate FiO2 11/11/24 11:40 75 14 104/59 (74) 98 11/11/24 11:40 Room Air* 0 21 11/10/24 21:51 98.4 98.4 General Appeara: Well developed Head Exam: Normal inspection Neck Exam: Normal inspection Eye Exam: bilateral eye PERRL Mouth: Normal Inspection Pulmonary/Respiratory: Lungs clear Cardiovascular/Chest: Normal inspection, Regular rate Peripheral Pulses: 2+ carotid (R), 2+ carotid (L), 2+ femoral (R), 2+ femoral (L), 2+ dorsalis pedis (R), 2+ dorsalis pedis (L), 2+ Radial (R), 2+ Radial (L) Abdominal Exam: Normal bowel sounds, Soft, No hepatospenomegaly Neuro/Mental St: Alert, Oriented Appearance: Appropriate appearance Eye contact/ Speech: Cooperative Labs/Xrays Labs Test 11/11/24 06:31 11/11/24 04:35 11/10/24 14:39 Range/Units POC Glucose 128 H 70-106 mg/dl White Blood Count 7.1 4.4-10.8 10^3/uL Red Blood Count 4.27 4.0-5.20 10^6/uL Hemoglobin 12.9 12.2-16.2 g/dL Hematocrit 37.5 36.0-46.0 % Mean Corpuscular Volume 87.8 80.0-100.0 fL Mean Corpuscular Hemoglobin 30.3 28.0-32.0 pg Mean Corpuscular Hemoglobin Concent 34.5 32.0-36.0 g/dL Red Cell Distribution Width 16.1 H 11.8-14.3 % Platelet Count 215 140-450 10^3/uL Mean Platelet Volume 8.7 6.9-10.8 fL Neutrophils (%) (Auto) 57.3 37.0-80.0 % Lymphocytes (%) (Auto) 33.0 10.0-50.0 % Monocytes (%) (Auto) 4.7 0.0-12.0 % Eosinophils (%) (Auto) 4.3 0.0-7.0 % Basophils (%) (Auto) 0.7 0.0-2.0 % Neutrophils # (Auto) 4.1 1.6-8.6 10 ^3/uL Lymphocytes # (Auto) 2.3 0.4-5.4 10 ^3/uL Monocytes # (Auto) 0.3 0-1.3 10 ^3/uL Eosinophils # (Auto) 0.3 0-0.8 10 ^3/uL Basophils # (Auto) 0 0-0.2 10 ^3/uL Nucleated Red Blood Cells 0.1 % Sodium Level 145 136-145 mmol/L Potassium Level 3.7 3.5-5.1 mmol/L Chloride Level 111 H 98-107 mmol/L Carbon Dioxide Level 23 20-31 mmol/L Anion Gap 11 5-15 Blood Urea Nitrogen 18 9-23 mg/dL Creatinine 0.96 0.550-1.02 mg/dL Glomerular Filtration Rate Calc 67 >90 mL/min BUN/Creatinine Ratio 18.8 10.0-20.0 Serum Glucose 108 H 74-106 mg/dL Calcium Level 9.1 8.7-10.4 mg/dL Total Bilirubin 0.4 0.2-1.0 mg/dL Aspartate Amino Transferase (AST) 11 L 13-40 U/L Alanine Aminotransferase (ALT) < 9 7-40 U/L Alkaline Phosphatase 96 46-116 U/L Total Protein 6.0 5.7-8.2 g/dL Albumin 4.1 3.2-4.8 g/dL Troponin I High Sensitivity < 3 L </=34 ng/L B-Type Natriuretic Peptide 17.82 0-100 pg/mL Assessment/Plan Plan Patient is a 59-year-old male who presented with 1 day history of chest discomfort. Cardiology is involved for cardiac aspects of care. She mentions that she was not taking her medications for few days prior to the presentation. She is known to our practice from previously admitted occasions and prior outside visits. It is of note that she was in the hospital in July for comparative presentation. During earlier admission in June/2024, the patient did have some chest pain with abnormal troponin and was found to have non-STEMI. Cardiac catheterization at that point revealed multivessel coronary artery disease and the patient was sent to [place] for the suggested CABG surgery. It seems that in [place] they did not do the CABG and the patient had only 1 stent. Later the patient was discharged home from [place]. In the middle of July patient came back with chest discomfort to our facility and with diagnosis of unstable angina was sent back to [place]. In [place], the patient again had another stent. I had an opportunity to talk to the supervisor doping in [place]. It seems that during the 1st admission to [place], they did put 1 stent in LAD. During the 2nd admission they put another stent in circumflex. It is of note that the patient did have LAD with trifurcation with disease in all of them. Reportedly (as per supervisor doping in [place]) LAD stent has resulted in pinching of the diagonals. Patient mentions compliance with aspirin/Plavix. It is of note that the patient had some type of abdominal biopsy few days back. Not in acute distress. No JVD. Mucosa is pink and dry. No carotid bruit. Lungs are clear to auscultation. Not using accessory muscles of breathing. Cardiac: Regular, no thrills/gallop. Abdomen is soft. Lower abdominal tenderness can be elicited. There is no rebound. Bowel sound is positive There was no gross mass/hepatomegaly. Extremities do not reveal edema. Dorsalis pedis is 2+ bilateral. 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 She has had kidney stones/hydronephrosis/hydroureter before. Uses a walker for ambulation (secondary to old CVA). Patient was found to have multivessel coronary artery disease (left heart catheterization of July 09, 2024). On July 12 2024, the patient was sent to higher level of care ([place]) for possible CABG surgery. Patient ended up having 1 stent in LAD and CABG was not performed. At next presentation, patient was sent back to [place] and had another stent (this t kailash in LCX). Reportedly the patient does have pinching of diagonals. Echocardiogram of December 16, 2022 (performed in [facility]) revealed ejection fraction of 60%, mild TR and right ventricular systolic pressure of 27 mm Hg. Echocardiogram of October 18, 2023 reported ejection fraction 55-60%, mild MR/TR and right ventricular systolic pressure of 25 mm Echocardiogram of May 05, 2024 revealed ejection fraction of 50-55%, normal diastolic, trace MR/TR and right ventricular systolic pressure of 28 mm Hg Echocardiogram of July 05, 2024 had revealed ejection fraction of 40%, trace MR/TR and right ventricular systolic pressure of 30 mm Hg Echocardiogram of July 29, 2024 revealed ejection fraction of 50-55%, no wall motion abnormality, trace mitral regurgitation, no tricuspid regurgitation. As there was no good tricuspid regurgitation jet, right ventricular systolic pressure could not be estimated Nuclear stress test of January 03, 2022 (performed as outpatient) revealed ejection fraction of 80% and no evidence for ischemia/scar. Left heart catheterization of July 09 2024 had revealed triple-vessel coronary artery disease Creatinine: 1.21 - 0.96 Potassium: 4.8 - 3.7 BNP: 17.82 Troponin (high sensitive): <3 Chest x-ray revealed: IMPRESSION: Mild pulmonary vasculature congestion. EKG reveals sinus rhythm with nonspecific ST-T changes Tele reveals sinus rhythm Patient is a 59-year-old female who presents with atypical chest discomfort. Does have history of coronary artery disease. Has had repeated ischemic workups recently. Is on dual antiplatelet therapy. Has not been compliant with the suggested antianginal therapy which could have contributed to the clinical picture. High sensitive troponin has been negative. Acute coronary syndrome is not considered at this point. Did have non-STEMI in early July. Was sent to [place] for possible CABG as she was found to have multivessel coronary artery disease. Instead of CABG the patient was given 1 stent (in LAD which resulted in pinching of diagonals). During the next presentation, the patient was sent back to [place] and ended up having another stent, this time in LCX. To continue aspirin/Plavix. ACS is not considered at this point. We will restart antianginal therapy. Patient was counseled to be compliant with medication and followups. Patient had some type of abdominal biopsy recently. Chest pain, atypical Coronary artery disease Triple-vessel coronary artery disease Status post PCI (drug-eluting stent deployment of LAD and LCX) History of old CVA with left hemiparesis History of Crohn disease/ulcerative colitis Inflammatory Bowel Disease Constipation Hyperlipidemia Status post carotid endarterectomy Diverticular disease, history of Noncompliance with medication and followups Renal Calculi Uterine Leiomyoma Left anterior abdominal wall soft tissue mass/neoplasm Cardiac suggestion for management: Manage in tele Follow-up electrolytes and kidney function tests and correct abnormalities. Keep potassium above 4 and magnesium above 2 Imdur, long-actin mg daily Ranolazine: 500 mg p.o. b.i.d. Diltiazem-ER: 120 mg daily Echocardiogram There is no indication to repeat any ischemic workup at this point Continue ASA/Plavix Follow-up on the recent biopsy as per primary team Lifestyle and risk factor modification is advised A total of 75 minutes was spent reviewing the patient record, examining the patient, making a diagnostic and therapeutic plan, discussing this plan with medical personnel, following up on diagnostic studies and following the patient for clinical stability excluding any and all procedures. At least 50% of this time was spent in direct, [id number] contact. Thank you for allowing me to participate in this patient's care. Further recommendations will depend on patient's clinical course. Please do not hesitate to contact me if you have any questions or concerns. This medical document was created using electronic medical record system with [employer] computerized dictation system. Although this document has been carefully reviewed, there may still be some phonetic and typographical errors. These areas are purely typographical due to the imperfection of the software programs, and do not reflect any compromise in the patient's medical care Plan discussed with: Patient, Other (nurse) BALTAZAR SOMMERS MD Nov 11, 2024 12:03
--- NOTE | 2024-11-11 13:13 | DVHHP2 ---
Admitting Diagnosis: Chest pain History of Present Illness 59 yo female patient with hx of CAD, CHF, CVA, HLD c/o sharp stabbing chest pain with associated SOB, dizziness, and nausea. Patient sts that she has been experiencing difficulties ever since having a stroke. While in the emergency department the patient was evaluated by the provider, As per provider: Labs, vital signs, and imagining monitored. Patient will be admitted for further evaluation and treatment. I discussed admission with the patient/family and is in agreement to treatment plan. Patient Family History: FH: breast cancer G8 SISTER FH: cancer FH: liver cancer G8 MOTHER, , Cause: Liver cancer Family history: Alzheimer's disease G8 MOTHER, , Cause: Liver cancer, Onset:Unknown Family history: Cardiovascular disease G8 FATHER, , Cause: CHF (congestive heart failure), Onset:Unknown Family history: Diabetes mellitus G8 BROTHER, Onset:Unknown Thyroid disease 19 CHILD Thyroid disease 19 CHILD Allergies: Coded Allergies: Latex (Verified Allergy, Mild, 06/02/24) INCLUDING TAPE, BROWN AND CLEAR TAPE Aspirin (Verified Allergy, Unknown, 11/10/24) Penicillins (Verified Allergy, Unknown, 07/30/24) Procaine (Verified Allergy, Unknown, 03/12/14) Home Meds Active Scripts Metronidazole (Flagyl) 500 Mg Tab, 500 MG PO TID for 14 Days, #42 TAB Prov:TAMI ROOT 10/28/24 Hydrocodone-Acetaminophen (Hydrocodone Bitartrate/AC 5-325 mg) 1 Tab Tab, 1 TAB PO Q8HP PRN for 5 Days, #15 TAB Prov:SEAN ZEPEDA MD 09/30/24 Ranolazine (Ranolazine ER) 500 Mg Tab, 500 MG PO BID for 30 Days, #60 TAB Prov:TED HUSSEIN NP 07/30/24 Baclofen (Baclofen) 10 Mg Tab, 5 MG PO Q8HP PRN for 7 Days, #21 TAB Prov:TED HUSSEIN NP 07/30/24 Isosorbide Mononitrate (Isosorbide Mononitrate Er) 30 Mg Tab, 1 TAB PO DAILY, #30 TAB 5 Refills Prov:TED HUSSEIN NP 07/30/24 Lidocaine (LIDODERM 5% TOPICAL PATCH) 1 Patch Ph, 1 PATCH TOP DAILY for 30 Days, #30 PATCH 0 Refills Prov:MIAN ROMO [employer] 06/02/24 Polyethylene Glycol 3350 (Miralax) 17 Gm Pow, 17 GM PO DAILY for 15 Days, #15 POW Prov:TED HUSSEIN Kim [employer] 05/03/24 Albuterol Sulfate (Albuterol Sulfate Hfa) 108 Mcg/Act Aer, 108 MCG IN BID PRN for 10 Days, #1 AER 0 Refills Prov:LILI LUNSFORD DO 12/01/22 Reported Medications Docusate Sodium (Docusate Sodium) 100 Mg Cap, 1 CAP PO BID for 30 Days, #60 07/03/24 Simvastatin (Simvastatin) 20 Mg Tab, 1 TAB PO DAILY for 90 Days, #90 07/03/24 Hydrocodone-Acetaminophen (Hydrocodone Bitartrate/AC 10-325 mg) 1 Tab Tab, 1 TAB PO Q6HR PRN for CHRONIC PAIN for 30 Days, #120 07/03/24 Potassium Chloride (Potassium Chloride ER) 10 Meq Tab, 1 TAB PO BID for 90 Days, #180 07/03/24 Paroxetine Hydrochloride (Paroxetine Hydrochloride) 20 Mg Tab, 1 TAB PO DAILY for 90 Days, #90 05/01/24 Tirzepatide (Mounjaro) 7.5 Mg/0.5 Ml Inj, 7.5 MG SC QWEEKLY for 28 Days, #2 10/18/23 Sitagliptin Phosphate (Januvia) 100 Mg Tab, 1 TAB PO DAILY 10/18/23 Clopidogrel Bisulfate (CLOPIDOGREL) 75 Mg Tab, 1 TAB PO DAILY 10/18/23 Furosemide (Furosemide) 40 Mg Tab, 1 TAB PO BID 10/18/23 Atorvastatin Calcium (ATORVASTATIN CALCIUM) 20 Mg Tab, 1 TAB PO DAILY 10/17/23 Cholecalciferol (Vitamin D-3 Super Strengt) 2,000 Unit Tab, 1 TAB PO DAILY 10/17/23 Gabapentin (Gabapentin) 300 Mg Cap, 1 CAP PO Q8HR for NEUROPATHIC PAIN for 30 Days, #90 10/17/23 Aspirin (Aspirin Low Dose) 81 Mg Tab, 1 TAB PO DAILY 10/17/23 Balsalazide Disodium (Balsalazide Disodium) 750 Mg Cap, 3 CAP PO BID for 30 Days, #180 10/17/23 Current Medications Current Medications Medications (Trade) Dose Ordered Sig/Damon Route PRN Reason Start Time Stop Time Status Last Admin Insulin Human Regular (InsuLIN R) AC SC 11/11/24 07:00 11/11/24 11:46 Atorvastatin Calcium (Lipitor) 20 mg DAILY PO 11/11/24 10:00 11/11/24 09:29 Clopidogrel Bisulfate (Plavix) 75 mg DAILY PO 11/11/24 10:00 11/11/24 09:29 Paroxetine HCl (Paxil Tablet) 20 mg DAILY PO 11/11/24 10:00 11/11/24 09:28 Patient Own Medication 1 tab DAILY PO 11/11/24 10:00 11/10/24 21:30 DC Patient Own Medication 1 tab DAILY PO 11/11/24 10:00 Morphine Sulfate 2 mg Q4HPRN PRN IV SEVERE PAIN (7-10 PAIN SCALE) 11/11/24 06:45 11/11/24 19:57 Isosorbide Mononitrate (Imdur Er Tablet) 30 mg DAILY PO 11/11/24 10:00 11/11/24 09:28 Aspirin 81 mg DAILY PO 11/11/24 10:00 Hold Review of Systems Constitutional: denies chills, denies fever, denies malaise Eyes: denies eye pain, denies vision change ENT: denies ear pain, denies headache, denies nasal congestion, denies painful swallowing, denies voice change Cardiovascular: denies chest pain, denies edema, denies orthopnea, denies palpitations, denies paroxysmal nocturnal dyspnea Respiratory: denies cough, denies shortness of breath Gastrointestinal: denies constipation, denies diarrhea, denies nausea, denies vomiting Genitourinary: denies dysuria, denies frequent urination, denies urethral discharge Musculoskeletal: denies back pain, denies joint pain, denies muscle pain Skin: denies bruising, denies itching, denies rash Neurological: denies focal weakness, denies headache, denies sensory changes Psychiatric: denies anxiety, denies depression Endocrine: denies polydipsia, denies polyuria Hematologic/Lymphatic: denies easy bleeding, denies easy bruising, denies enlarged lymph nodes Allergic/Immunologic: denies allergy, denies hives Vital Signs Vital Signs Date Time Temp Pulse Resp B/P (MAP) Pulse Ox O2 Delivery O2 Flow Rate FiO2 11/11/24 22:45 98.1 70 17 115/75 (88) 96 98.1 11/11/24 11:40 Room Air* 0 21 Physical Exam General Appearance: alert, no distress HEENT: EOMI, PERRLA, normal external inspect of ears, no icterus, no nasal drainage Neck: no carotid bruit, no jugular venous distention (JVD), no lymphadenopathy Chest: normal thorax Respiratory: clear to auscultation, normal air movement Cardiovascular: regular rate and rhythm, no diastolic murmur, no jugular venous distention (JVD), no rub, no systolic murmur Abdominal: soft, no hepatomegaly, no mass, no splenomegaly, no tenderness Genitourinary: grossly normal external Musculoskeletal: no joint tenderness, no swelling Extremities: normal pulses, no calf tenderness, no clubbing, no cyanosis, no edema Skin: no bruising, no jaundice, no rash Neurological: alert, No focal deficit SEPSIS Sepsis Screen Date sepsis recognized/suspect: Nov 11, 2024 Time Sepsis recognized/suspect: 1150 Recent Procedure: No On Antibiotic Therapy: No Respiratory Rate >20: No Heart Rate >90: No Temp<36 C (96.8 F) or >38.3 C: No SBP <90 or MAP <65 mmHG: No New Acute Mental Status Change: No Is the patient on CPAP, BIPAP,: No Physician Orders Chest Portable (11/10/24 14:20) Urinalysis (11/10/24 14:20) Electrocardigram (11/10/24 15:30) Electrocardigram (11/10/24 14:22) Admit (11/10/24 20:01) Code Status (11/10/24 20:01) Oxygen Per Hour (11/10/24 20:01) Ondansetron Hcl (Zofran) (11/10/24 20:15) Condition: Fair (11/10/24 20:01) Morphine Sulfate Injection (11/10/24 20:15) Stat Ekg For Chest Pain (11/10/24 20:01) Notify Md Of Changes From Base (11/10/24 20:01) Bending Machine Set Up Operator For 24 Hours (11/10/24 20:01) Emergency Dysrhythmia Protocol (11/10/24 20:01) Rhythm Strips Once Every Shift (11/10/24 20:01) Oxygen By Nasal Cannula (11/10/24 20:01) Cardiac Diet-2gna,Lofat,Lochol (11/11/24 Breakfast) Glucose Blood (Accu-Chek Comfort Curve T (11/10/24 22:00) Insulin R (Human) (Insulin R) (11/10/24 22:00) Insulin R (Human) (Insulin R) (11/11/24 07:00) Dextrose 50% Syringe (11/10/24 20:15) *Consult Dr. Gonzalez Sabillon (11/10/24 20:04) Nitroglycerin Sublingual (Ntrostat Subli (11/10/24 20:15) Atorvastatin (Lipitor) (11/11/24 10:00) Clopidogrel Bisulfate (Plavix) (11/11/24 10:00) Furosemide Tablet (Lasix Tablet) (11/10/24 22:00) Gabapentin Capsule (Neurontin Capsule) (11/10/24 22:00) Paroxetine Tablet (Paxil Tablet) (11/11/24 10:00) Ranolazine (Ranexa Er) (11/10/24 22:00) (Nf) Sitagliptin Phosphate (Januvia) (11/11/24 10:00) Mrsa Screen (11/11/24 04:27) Morphine Sulfate Injection (11/11/24 06:45) Isosorbide Mononitrate Tablet (Imdur Er (11/11/24 10:00) Aspirin Tablet (11/11/24 10:00) Echo 2d Mode Cardiac Dop (11/11/24 09:44) Ct Ab Pel With Iv Con Only (11/11/24 17:21) Vital Signs Date Time Temp Pulse Resp B/P (MAP) Pulse Ox O2 Delivery O2 Flow Rate FiO2 11/11/24 22:45 98.1 70 17 115/75 (88) 96 98.1 11/11/24 22:04 103/63 (76) 11/11/24 21:47 90/60 11/11/24 20:27 78 18 90/60 11/11/24 19:57 83 16 106/63 11/11/24 18:53 81 12 100/66 11/11/24 14:39 80 16 111/60 11/11/24 14:37 111/60 (77) 11/11/24 14:04 97.6 75 12 92/55 (67) 92 97.6 11/11/24 12:00 75 11/11/24 11:40 75 14 104/59 (74) 98 11/11/24 11:40 75 14 98 Room Air* 0 21 11/11/24 10:31 81 14 106/63 11/11/24 09:36 76 14 111/63 11/11/24 09:28 111/63 11/11/24 09:28 111/63 11/11/24 08:00 66 11/11/24 04:00 71 11/11/24 01:08 117/75 11/11/24 00:00 70 11/10/24 21:51 98.4 80 16 11/76 (55) 96 98.4 11/10/24 16:56 75 18 102/68 (79) 99 11/10/24 14:05 98.0 78 16 125/76 96 98.0 11/10/24 14:04 76 Laboratory Tests Test 11/10/24 14:39 11/11/24 04:35 White Blood Count 7.0 10^3/uL (4.4-10.8) 7.1 10^3/uL (4.4-10.8) Results Labs Test 11/11/24 21:47 11/11/24 04:35 11/10/24 14:39 Range/Units POC Glucose 143 H 70-106 mg/dl White Blood Count 7.1 4.4-10.8 10^3/uL Red Blood Count 4.27 4.0-5.20 10^6/uL Hemoglobin 12.9 12.2-16.2 g/dL Hematocrit 37.5 36.0-46.0 % Mean Corpuscular Volume 87.8 80.0-100.0 fL Mean Corpuscular Hemoglobin 30.3 28.0-32.0 pg Mean Corpuscular Hemoglobin Concent 34.5 32.0-36.0 g/dL Red Cell Distribution Width 16.1 H 11.8-14.3 % Platelet Count 215 140-450 10^3/uL Mean Platelet Volume 8.7 6.9-10.8 fL Neutrophils (%) (Auto) 57.3 37.0-80.0 % Lymphocytes (%) (Auto) 33.0 10.0-50.0 % Monocytes (%) (Auto) 4.7 0.0-12.0 % Eosinophils (%) (Auto) 4.3 0.0-7.0 % Basophils (%) (Auto) 0.7 0.0-2.0 % Neutrophils # (Auto) 4.1 1.6-8.6 10 ^3/uL Lymphocytes # (Auto) 2.3 0.4-5.4 10 ^3/uL Monocytes # (Auto) 0.3 0-1.3 10 ^3/uL Eosinophils # (Auto) 0.3 0-0.8 10 ^3/uL Basophils # (Auto) 0 0-0.2 10 ^3/uL Nucleated Red Blood Cells 0.1 % Sodium Level 145 136-145 mmol/L Potassium Level 3.7 3.5-5.1 mmol/L Chloride Level 111 H 98-107 mmol/L Carbon Dioxide Level 23 20-31 mmol/L Anion Gap 11 5-15 Blood Urea Nitrogen 18 9-23 mg/dL Creatinine 0.96 0.550-1.02 mg/dL Glomerular Filtration Rate Calc 67 >90 mL/min BUN/Creatinine Ratio 18.8 10.0-20.0 Serum Glucose 108 H 74-106 mg/dL Calcium Level 9.1 8.7-10.4 mg/dL Total Bilirubin 0.4 0.2-1.0 mg/dL Aspartate Amino Transferase (AST) 11 L 13-40 U/L Alanine Aminotransferase (ALT) < 9 7-40 U/L Alkaline Phosphatase 96 46-116 U/L Total Protein 6.0 5.7-8.2 g/dL Albumin 4.1 3.2-4.8 g/dL Troponin I High Sensitivity < 3 L </=34 ng/L B-Type Natriuretic Peptide 17.82 0-100 pg/mL Plan 1. Unstable angina Monitor EKG, cardiology consult, trend troponin, start antianginal 2. CAD s/p coronary artery stent (LAD, LCX) Monitor 3. Morbid obesity Monitor 4. Crohn's disease Monitor, restart home meds 5. 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 Abdominal wall mass Monitor, repeat CT abdomen/pelvis Plan discussed with: Patient, Other TED HUSSEIN NP Nov 11, 2024 13:13
--- NOTE | 2024-11-11 13:13 | DVHPN2 ---
Progress Note - Dictate Date Seen: Nov 11, 2024 Medical Necessity Reason Pt with a Central, PICC or Fol: No vital signs Vital Sign Date Time Temp Pulse Resp B/P (MAP) Pulse Ox O2 Delivery O2 Flow Rate FiO2 11/11/24 12:00 75 11/11/24 11:40 14 104/59 (74) 98 11/11/24 11:40 Room Air* 0 21 11/10/24 21:51 98.4 98.4 medications Current Medications Medications Dose Ordered Sig/Damon Route Start Time Stop Time Status Last Admin Dose Admin Ondansetron HCl 4 mg Q4HP PRN IV 11/10/24 20:15 Morphine Sulfate 2 mg Q30M PRN IV 11/10/24 20:15 Diagnostic Test (Pha) 1 strip ACHS 11/10/24 22:00 11/11/24 11:41 Insulin Human Regular HS SC 11/10/24 22:00 11/11/24 01:03 Insulin Human Regular AC SC 11/11/24 07:00 11/11/24 11:46 Dextrose 50 ml UD PRN IV 11/10/24 20:15 Nitroglycerin 0.4 mg Q5MIN PRN SL 11/10/24 20:15 Atorvastatin Calcium 20 mg DAILY PO 11/11/24 10:00 11/11/24 09:29 Clopidogrel Bisulfate 75 mg DAILY PO 11/11/24 10:00 11/11/24 09:29 Furosemide 40 mg BID PO 11/10/24 22:00 11/11/24 09:28 Gabapentin 300 mg Q8HR PO 11/10/24 22:00 11/11/24 06:34 Paroxetine HCl 20 mg DAILY PO 11/11/24 10:00 11/11/24 09:28 Ranolazine 500 mg BID PO 11/10/24 22:00 11/11/24 09:28 Patient Own Medication 1 tab DAILY PO 11/11/24 10:00 Morphine Sulfate 2 mg Q4HPRN PRN IV 11/11/24 06:45 11/11/24 09:36 Isosorbide Mononitrate 30 mg DAILY PO 11/11/24 10:00 11/11/24 09:28 Aspirin 81 mg DAILY PO 11/11/24 10:00 Hold objective General Appearance: alert, no distress HEENT: EOMI, PERRLA, normal external inspect of ears, no icterus, no nasal drainage Neck: no carotid bruit, no jugular venous distention (JVD), no lymphadenopathy Chest: normal thorax Respiratory: clear to auscultation, normal air movement Cardiovascular: regular rate and rhythm, no diastolic murmur, no jugular venous distention (JVD), no rub, no systolic murmur Abdominal: soft, no hepatomegaly, no mass, no splenomegaly, no tenderness Genitourinary: grossly normal external Musculoskeletal: no joint tenderness, no swelling Extremities: normal pulses, no calf tenderness, no clubbing, no cyanosis, no edema Skin: no bruising, no jaundice, no rash Neurological: alert, No focal deficit laboratory and microbiology Laboratory Tests 11/11/24 04:35 Test 11/11/24 04:35 Range/Units Serum Glucose 108 H 74-106 mg/dL Problem List 1. Unstable angina Monitor EKG, cardiology consult, trend troponin, start antianginal 2. CAD s/p coronary artery stent (LAD, LCX) Monitor 3. Morbid obesity Monitor 4. Crohn's disease Monitor, restart home meds 5. 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 Abdominal wall mass Monitor, repeat CT abdomen/pelvis Assessment/Plan Subjective Patient is awake and alert. Objective Patient is complaining of chest pain. Patient was seen by cardiology. Troponin levels are negative. Patient does have a history of CAD status post 2 stents to the LAD and left circumflex. Patient is having abdominal pain and diarrhea. Patient states she recently had a biopsy done to her abdominal wall mass to her left lower abdomen. Rachel are intact. Plan Continue current treatment. Start medications for ulcerative colitis. Attempt to obtain pathology report for biopsy. Repeat CT of abdomen and pelvis. Cardiology recommendations appreciated. Start antianginals as recommended by cardiology. Plan discussed with: Patient, Other TED HUSSEIN NP Nov 11, 2024 13:13
[2024-11-11 14:04] VITALS: BP 92/55; PULSE 75; RESP 12; TEMP 97.6; O2SAT 92
[2024-11-11 14:37] VITALS: BP 111/60
[2024-11-11] MEDS ORDERED: IOHEXOL 300 MG/ML 100ML BOTTLE IJ ONE (17:42)
--- NOTE | 2024-11-11 19:09 | DVH ---
Exam: CT CT AB PEL WITH IV CON ONLY History: re-eval ct abd 10/24/24 abd mass Comparison Study: CT CT AB PEL WITH ORAL CON ONLY on DOS: 10/24/24, CT HEAD WITHOUT CONTRAST on DOS: , MRI BRAIN HEAD WO CONTRAST on DOS: 11/02/23 TECHNIQUE: Multidetector CT of the abdomen and pelvis with IV contrast. Axial, coronal and sagittal m ultiplanar reformats were obtained from the axial data set by the technologist. Radiation Dose Information: CT Dose: CTDI volume is 22.81 mGy. Dose-length product is 3.92 mGy*cm FINDINGS: Bibasilar atelectasis. Partially visualized heart is unremarkable. Liver, spleen, pancreas and adrenal glands unremarkable. The gallbladder is not definitely visualized . Left Renal scarring. Subcentimeter hypodense right renal lesion that is too small to characterize. 4 mm left renal upper pole cyst. Bilateral ureters are unremarkable. Wall thickening of the urinary bl adder. Fibroid uterus. Stomach is unremarkable. Wall thickening of proximal small bowel which is most likely from inadequate distension. The remainder of the Small bowel loops are unremarkable. Appendix is redundantly measuri ng up to 8 mm. Otherwise, unremarkable. Descending colon sigmoid diverticulosis without diverticulit is. Moderate to large amount of fecal material within the colon. No evidence of intraperitoneal free air or free fluid. No evidence of aortic aneurysm. Mild atherosclerotic calcification of the aorta and bilateral iliacs . No significant lymphadenopathy. Interval postsurgical changes of the previously noted left ventral lower abdominal subcutaneous fat h ypodense lesion overlying skin antoni and fat stranding with minimal fluid of the area. Unchanged 2. 2 x 1.9 cm heterogeneous density within the subcutaneous fat of the left ventral midabdomen and Addit ional similar 1 x 1.3 cm lesion within the right ventral paramedian midabdomen. No evidence of acute bony or soft tissues abnormalities. IMPRESSION: Residual fat stranding with Minimal fluid over the left ventral lower abdominal subcutaneous fat prev iously noted hypodense lesion with overlying skin antoni consistent with recent surgical procedure. Wall thickening of the urinary bladder. Recommend correlation with urinalysis for cystitis. Fibroid uterus. Moderate to large amount of fecal material within the colon. Subcentimeter hypodense right renal lesion that is too small to characterize with nonobstructing left renal calculus and left renal scarring. Additional findings as above.
[2024-11-11 22:04] VITALS: BP 103/63
[2024-11-11 22:45] VITALS: BP 115/75; PULSE 70; RESP 17; TEMP 98.1; O2SAT 96
[2024-11-12] VITALS (8 sets, daily range): BP systolic 98–128; BP diastolic 59–78; PULSE 70–82; RESP 17–19; TEMP 96.6–98.1; O2SAT 92–97
[2024-11-12 01:26] LABS: Urine Protein, UAD Negative (Negative); Urine WBC Clumps PRESENT /hpf (None Seen)
--- NOTE | 2024-11-12 06:23 | DVHPN2 ---
Progress Note - Dictate Date Seen: Nov 12, 2024 Medical Necessity Reason Pt with a Central, PICC or Fol: No vital signs Vital Sign Date Time Temp Pulse Resp B/P (MAP) Pulse Ox O2 Delivery O2 Flow Rate FiO2 11/12/24 05:00 97.8 78 17 128/78 (95) 92 97.8 11/11/24 11:40 Room Air* 0 21 Total Intake and Output 11/11/24 11/11/24 11/12/24 15:00 23:00 07:00 Intake Total 440 ml Balance 440 ml medications Current Medications Medications Dose Ordered Sig/Damon Route Start Time Stop Time Status Last Admin Dose Admin Ondansetron HCl 4 mg Q4HP PRN IV 11/10/24 20:15 Morphine Sulfate 2 mg Q30M PRN IV 11/10/24 20:15 Diagnostic Test (Pha) 1 strip ACHS 11/10/24 22:00 11/11/24 22:00 1 STRIP Insulin Human Regular HS SC 11/10/24 22:00 11/11/24 21:58 2 UNITS Insulin Human Regular AC SC 11/11/24 07:00 11/11/24 11:46 2 UNITS Dextrose 50 ml UD PRN IV 11/10/24 20:15 Nitroglycerin 0.4 mg Q5MIN PRN SL 11/10/24 20:15 Atorvastatin Calcium 20 mg DAILY PO 11/11/24 10:00 11/11/24 09:29 20 MG Clopidogrel Bisulfate 75 mg DAILY PO 11/11/24 10:00 11/11/24 09:29 75 MG Furosemide 40 mg BID PO 11/10/24 22:00 11/11/24 09:28 40 MG Gabapentin 300 mg Q8HR PO 11/10/24 22:00 11/11/24 22:01 300 MG Paroxetine HCl 20 mg DAILY PO 11/11/24 10:00 11/11/24 09:28 20 MG Ranolazine 500 mg BID PO 11/10/24 22:00 11/11/24 22:00 500 MG Patient Own Medication 1 tab DAILY PO 11/11/24 10:00 Morphine Sulfate 2 mg Q4HPRN PRN IV 11/11/24 06:45 11/12/24 02:10 2 MG Isosorbide Mononitrate 30 mg DAILY PO 11/11/24 10:00 11/11/24 09:28 30 MG Aspirin 81 mg DAILY PO 11/11/24 10:00 Hold laboratory and microbiology Laboratory Tests 11/11/24 04:35 Test 11/11/24 04:35 Range/Units Serum Glucose 108 H 74-106 mg/dL Assessment/Plan Patient is a 59-year-old male who presented with 1 day history of chest discomfort. Cardiology is involved for cardiac aspects of care. She mentions that she was not taking her medications for few days prior to the presentation. She is known to our practice from previously admitted occasions and prior outside visits. It is of note that she was in the hospital in July for comparative presentation. During earlier admission in June/2024, the patient did have some chest pain with abnormal troponin and was found to have non-STEMI. Cardiac catheterization at that point revealed multivessel coronary artery disease and the patient was sent to [place] for the suggested CABG surgery. It seems that in [place] they did not do the CABG and the patient had only 1 stent. Later the patient was discharged home from [place]. In the middle of July patient came back with chest discomfort to our facility and with diagnosis of unstable angina was sent back to [place]. In [place], the patient again had another stent. I had an opportunity to talk to the slice cutting machine operator in [place]. It seems that during the 1st admission to [facility], they did put 1 stent in LAD. During the 2nd admission they put another stent in circumflex. It is of note that the patient did have LAD with trifurcation with disease in all of them. Reportedly (as per slice cutting machine operator in [place]) LAD stent has resulted in pinching of the diagonals. Patient mentions compliance with aspirin/Plavix. It is of note that the patient had some type of abdominal biopsy few days back. Not in acute distress. No JVD. Mucosa is pink and dry. No carotid bruit. Lungs are clear to auscultation. Not using accessory muscles of breathing. Cardiac: Regular, no thrills/gallop. Abdomen is soft. Lower abdominal tenderness can be elicited. There is no rebound. Bowel sound is positive There was no gross mass/hepatomegaly. Extremities do not reveal edema. Dorsalis pedis is 2+ bilateral. 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 She has had kidney stones/hydronephrosis/hydroureter before. Uses a walker for ambulation (secondary to old CVA). Patient was found to have multivessel coronary artery disease (left heart catheterization of July 09, 2024). On July 12 2024, the patient was sent to higher level of care ([place]) for possible CABG surgery. Patient ended up having 1 stent in LAD and CABG was not performed. At next presentation, patient was sent back to [facility] and had another stent (this time in LCX). Reportedly the patient does have pinching of diagonals. Echocardiogram of December 16, 2022 (performed in [facility]) revealed ejection fraction of 60%, mild TR and right ventricular systolic pressure of 27 mm Hg. Echocardiogram of October 18, 2023 reported ejection fraction 55-60%, mild MR/TR and right ventricular systolic pressure of 25 mm Echocardiogram of May 05, 2024 revealed ejection fraction of 50-55%, normal diastolic, trace MR/TR and right ventricular systolic pressure of 28 mm Hg Echocardiogram of July 05, 2024 had revealed ejection fraction of 40%, trace MR/TR and right ventricular systolic pressure of 30 mm Hg Echocardiogram of July 29, 2024 revealed ejection fraction of 50-55%, no wall motion abnormality, trace mitral regurgitation, no tricuspid regurgitation. As there was no good tricuspid regurgitation jet, right ventricular systolic pressure could not be estimated Nuclear stress test of January 03, 2022 (performed as outpatient) revealed ejection fraction of 80% and no evidence for ischemia/scar. Left heart catheterization of July 09 2024 had revealed triple-vessel coronary artery disease Creatinine: 1.21 - 0.96 Potassium: 4.8 - 3.7 BNP: 17.82 Troponin (high sensitive): <3 Chest x-ray revealed: IMPRESSION: Mild pulmonary vasculature congestion. CT of abdomen and pelvis revealed: Bibasilar atelectasis. Partially visualized heart is unremarkable. Liver, spleen, pancreas and adrenal glands unremarkable. The gallbladder is not definitely visualized. Left Renal scarring. Subcentimeter hypodense right renal lesion that is too small to characterize. 4 mm left renal upper pole cyst. Bilateral ureters are unremarkable. Wall thickening of the urinary bladder. Fibroid uterus. Stomach is unremarkable. Wall thickening of proximal small bowel which is most likely from inadequate distension. The remainder of the Small bowel loops are unremarkable. Appendix is redundantly measuring up to 8 mm. Otherwise, unremarkable. Descending colon sigmoid diverticulosis without diverticulitis. Moderate to large amount of fecal material within the colon. No evidence of intraperitoneal free air or free fluid. No evidence of aortic aneurysm. Mild atherosclerotic calcification of the aorta and bilateral iliacs. No significant lymphadenopathy. Interval postsurgical changes of the previously noted left ventral lower abdominal subcutaneous fat hypodense lesion overlying skin antoni and fat stranding with minimal fluid of the area. Unchanged 2.2 x 1.9 cm heterogeneous density within the subcutaneous fat of the left ventral midabdomen and Additional similar 1 x 1.3 cm lesion within the right ventral paramedian midabdomen. No evidence of acute bony or soft tissues abnormalities. IMPRESSION: Residual fat stranding with Minimal fluid over the left ventral lower abdominal subcutaneous fat previously noted hypodense lesion with overlying skin antoni consistent with recent surgical procedure. Wall thickening of the urinary bladder. Recommend correlation with urinalysis for cystitis. Fibroid uterus. Moderate to large amount of fecal material within the colon. Subcentimeter hypodense right renal lesion that is too small to characterize with nonobstructing left renal calculus and left renal scarring. Additional findings as above. EKG reveals sinus rhythm with nonspecific ST-T changes Tele reveals sinus rhythm Patient is a 59-year-old female who presents with atypical chest discomfort. Does have history of coronary artery disease. Has had repeated ischemic workups recently. Is on dual antiplatelet therapy. Has not been compliant with the suggested antianginal therapy which could have contributed to the clinical picture. High sensitive troponin has been negative. Acute coronary syndrome is not considered at this point. Did have non-STEMI in early July. Was sent to [place] for possible CABG as she was found to have multivessel coronary artery disease. Instead of CABG the patient was given 1 stent (in LAD which resulted in pinching of diagonals). During the next presentation, the patient was sent back to [place] and ended up having another stent, this time in LCX. To continue aspirin/Plavix. ACS is not considered at this point. We will restart antianginal therapy. Patient was counseled to be compliant with medication and followups. Patient had some type of abdominal biopsy recently. Chest pain, atypical Coronary artery disease Triple-vessel coronary artery disease Status post PCI (drug-eluting stent deployment of LAD and LCX) History of old CVA with left hemiparesis History of Crohn disease/ulcerative colitis Inflammatory Bowel Disease Constipation Hyperlipidemia Status post carotid endarterectomy Diverticular disease, history of Noncompliance with medication and followups Renal Calculi Uterine Leiomyoma Left anterior abdominal wall soft tissue mass/neoplasm Cardiac suggestion for management: Manage in tele Follow-up electrolytes and kidney function tests and correct abnormalities. Keep potassium above 4 and magnesium above 2 Imdur, long-actin mg daily Ranolazine: 500 mg p.o. b.i.d. Diltiazem-ER: 120 mg daily Awaiting Echocardiogram There is no indication to repeat any ischemic workup at this point Continue ASA/Plavix Follow-up on the recent biopsy as per primary team Lifestyle and risk factor modification is advised A total of 55 minutes was spent reviewing the patient record, examining the patient, making a diagnostic and therapeutic plan, discussing this plan with medical personnel, following up on diagnostic studies and following the patient for clinical stability excluding any and all procedures. At least 50% of this time was spent in direct, [id number] contact. Thank you for allowing me to participate in this patient's care. Further recommendations will depend on patient's clinical course. Please do not hesitate to contact me if you have any questions or concerns. This medical document was created using electronic medical record system with [employer] computerized dictation system. Although this document has been carefully reviewed, there may still be some phonetic and typographical errors. These areas are purely typographical due to the imperfection of the software programs, and do not reflect any compromise in the patient's medical care Plan discussed with: Patient, Other (nurse) BALTAZAR SOMMERS MD Nov 12, 2024 06:23
[2024-11-12] MEDS: MORPHINE SULFATE INJ 2 MG/ml SYRG IV PRN (06:47)
[2024-11-12] MEDS ORDERED: dilTIAZem 120MG ER CAP PO SCH ×2 (10:00)
[2024-11-12] MEDS: dilTIAZem 120MG ER CAP PO SCH (11:33)
[2024-11-12] MEDS: MESALAMINE 400mg Delayed Release Cap PO SCH (17:55)
--- NOTE | 2024-11-12 21:49 | DVHPN2 ---
Progress Note - Dictate Date Seen: Nov 12, 2024 Medical Necessity Reason Pt with a Central, PICC or Fol: No vital signs Vital Sign Date Time Temp Pulse Resp B/P (MAP) Pulse Ox O2 Delivery O2 Flow Rate FiO2 11/12/24 21:00 98.1 72 18 108/66 (80) 97 98.1 11/12/24 08:30 Room Air* 0 21 Total Intake and Output 11/11/24 11/12/24 11/12/24 18:00 02:00 10:00 Intake Total 440 ml Balance 440 ml medications Current Medications Medications Dose Ordered Sig/Damon Route Start Time Stop Time Status Last Admin Dose Admin Ondansetron HCl 4 mg Q4HP PRN IV 11/10/24 20:15 Morphine Sulfate 2 mg Q30M PRN IV 11/10/24 20:15 11/12/24 06:47 2 MG Diagnostic Test (Pha) 1 strip ACHS 11/10/24 22:00 11/12/24 16:48 1 STRIP Insulin Human Regular HS SC 11/10/24 22:00 11/11/24 21:58 2 UNITS Insulin Human Regular AC SC 11/11/24 07:00 11/12/24 17:00 2 UNITS Dextrose 50 ml UD PRN IV 11/10/24 20:15 Nitroglycerin 0.4 mg Q5MIN PRN SL 11/10/24 20:15 Atorvastatin Calcium 20 mg DAILY PO 11/11/24 10:00 11/12/24 11:47 20 MG Clopidogrel Bisulfate 75 mg DAILY PO 11/11/24 10:00 11/12/24 11:31 75 MG Furosemide 40 mg BID PO 11/10/24 22:00 11/12/24 11:46 40 MG Gabapentin 300 mg Q8HR PO 11/10/24 22:00 11/12/24 16:23 300 MG Paroxetine HCl 20 mg DAILY PO 11/11/24 10:00 11/12/24 11:31 20 MG Ranolazine 500 mg BID PO 11/10/24 22:00 11/12/24 11:32 500 MG Patient Own Medication 1 tab DAILY PO 11/11/24 10:00 Morphine Sulfate 2 mg Q4HPRN PRN IV 11/11/24 06:45 11/12/24 17:57 2 MG Isosorbide Mononitrate 30 mg DAILY PO 11/11/24 10:00 11/11/24 09:28 30 MG Aspirin 81 mg DAILY PO 11/11/24 10:00 Hold Diltiazem HCl 120 mg DAILY PO 11/12/24 10:00 UNV Diltiazem HCl 120 mg DAILY PO 11/12/24 10:00 11/12/24 11:33 120 MG Mesalamine 800 mg TID PO 11/12/24 16:15 11/12/24 17:55 800 MG objective General Appearance: alert, no distress HEENT: EOMI, PERRLA, normal external inspect of ears, no icterus, no nasal drainage Neck: no carotid bruit, no jugular venous distention (JVD), no lymphadenopathy Chest: normal thorax Respiratory: clear to auscultation, normal air movement Cardiovascular: regular rate and rhythm, no diastolic murmur, no jugular venous distention (JVD), no rub, no systolic murmur Abdominal: soft, no hepatomegaly, no mass, no splenomegaly, no tenderness Genitourinary: grossly normal external Musculoskeletal: no joint tenderness, no swelling Extremities: normal pulses, no calf tenderness, no clubbing, no cyanosis, no edema Skin: no bruising, no jaundice, no rash Neurological: alert, No focal deficit laboratory and microbiology Laboratory Tests 11/11/24 04:35 Test 11/11/24 04:35 Range/Units Serum Glucose 108 H 74-106 mg/dL Problem List 1. Unstable angina Monitor EKG, cardiology consult, trend troponin, start antianginal 2. CAD s/p coronary artery stent (LAD, LCX) Monitor 3. Morbid obesity Monitor 4. Crohn's disease Monitor, restart home meds 5. 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 Abdominal wall mass Monitor, repeat CT abdomen/pelvis Assessment/Plan Subjective Patient is awake and alert. Objective Patient states she had her echocardiogram done today. Results are still currently pending. Patient is still complaining of diarrhea however she states it is chronic from her Crohn's disease. Patient not complaining of chest pain at this time. Plan Cardiology evaluation ongoing. Echocardiogram pending. Discharge planning, Plan discussed with: Patient, Other TED HUSSEIN NP Nov 12, 2024 21:49
[2024-11-13 01:00] VITALS: BP 100/63; PULSE 74; RESP 18; TEMP 99; O2SAT 95
[2024-11-13 05:00] VITALS: BP 104/67; PULSE 72; RESP 18; TEMP 97.6; O2SAT 93
--- NOTE | 2024-11-13 07:33 | DVHSR ---
APPROVED REPORT EXAM: Two-dimensional and M-mode echocardiogram with Doppler and color Doppler. Blood Pressure: 128/78 mmHg INDICATION Chest Pain RISK FACTORS Height: 62, Weight: 181 DIMENSIONS LVDd (3.8-5.7cm)LA (2D) (1.9-4.0cm)Aortic Root3.3 (2.0-3.7cm) LVDs (2.5-4.0cm)LA (MM) (1.9-4.0cm)Aortic Cusp Exc1.8 (1.5-2.0cm) EF (%) 60.0 (55-70%)Rt. Atrium (1.9-4.0cm)Asc. Aorta cm Mitral Valve MitralMitral Stenosis E wave0.82m/sMV Mean GR.mmHg A wave0.91m/sMV Peak GR.mmHg E/A ratio0.92D MVAcm2 DECEL [id number] 1/2 [id number] IVRTmsDop MVA2.40cm2 Aortic Valve Aortic ValveAortic Stenosis V11.35m/Yared Mean GR.5mmHg V21.59m/Yared Peak GR.10mmHg LVOT Diameter1.8 (1.8-2.4cm)Doppler AVA2.16cm2 Pulmonic Valve V20.77m/s Tricuspid Valve TR Velocity2.07m/s [id number] Conclusion Left ventricle: Left ventricle was normal-sized with normal systolic function. LVEF was around 60%. There was no gross wall motion abnormality. Left ventricular diastolic function was considered nor mal. Right ventricle was normal-sized with normal systolic function. Both atria were normal-sized. Aortic valve was trileaflet. There was no aortic insufficiency/stenosis. There was trace mitral and tricuspid regurgitation. There was no pulmonary valve insufficiency. Right ventricular systolic pressure was assessed at 28 mm Hg (normal). There was no pericardial effu ana cristina. IVC was normal-sized with reduced respiratory variation.
--- NOTE | 2024-11-13 07:34 | DVHPN2 ---
Progress Note - Dictate Date Seen: Nov 13, 2024 Medical Necessity Reason Pt with a Central, PICC or Fol: No vital signs Vital Sign Date Time Temp Pulse Resp B/P (MAP) Pulse Ox O2 Delivery O2 Flow Rate FiO2 11/13/24 05:00 97.6 72 18 104/67 (79) 93 97.6 11/12/24 20:00 Room Air* 0 21 Total Intake and Output 11/12/24 11/12/24 11/13/24 15:00 23:00 07:00 Intake Total 500 ml 400 ml Balance 500 ml 400 ml medications Current Medications Medications Dose Ordered Sig/Damon Route Start Time Stop Time Status Last Admin Dose Admin Ondansetron HCl 4 mg Q4HP PRN IV 11/10/24 20:15 Morphine Sulfate 2 mg Q30M PRN IV 11/10/24 20:15 11/12/24 06:47 2 MG Diagnostic Test (Pha) 1 strip ACHS 11/10/24 22:00 11/13/24 06:32 1 STRIP Insulin Human Regular HS SC 11/10/24 22:00 11/12/24 22:08 3 UNITS Insulin Human Regular AC SC 11/11/24 07:00 11/13/24 06:29 3 UNITS Dextrose 50 ml UD PRN IV 11/10/24 20:15 Nitroglycerin 0.4 mg Q5MIN PRN SL 11/10/24 20:15 Atorvastatin Calcium 20 mg DAILY PO 11/11/24 10:00 11/12/24 11:47 20 MG Clopidogrel Bisulfate 75 mg DAILY PO 11/11/24 10:00 11/12/24 11:31 75 MG Furosemide 40 mg BID PO 11/10/24 22:00 11/12/24 22:10 40 MG Gabapentin 300 mg Q8HR PO 11/10/24 22:00 11/13/24 05:46 300 MG Paroxetine HCl 20 mg DAILY PO 11/11/24 10:00 11/12/24 11:31 20 MG Ranolazine 500 mg BID PO 11/10/24 22:00 11/12/24 22:09 500 MG Patient Own Medication 1 tab DAILY PO 11/11/24 10:00 Morphine Sulfate 2 mg Q4HPRN PRN IV 11/11/24 06:45 11/13/24 01:41 2 MG Isosorbide Mononitrate 30 mg DAILY PO 11/11/24 10:00 11/11/24 09:28 30 MG Aspirin 81 mg DAILY PO 11/11/24 10:00 Hold Diltiazem HCl 120 mg DAILY PO 11/12/24 10:00 UNV Diltiazem HCl 120 mg DAILY PO 11/12/24 10:00 11/12/24 11:33 120 MG Mesalamine 800 mg TID PO 11/12/24 16:15 11/13/24 05:47 800 MG laboratory and microbiology Laboratory Tests 11/11/24 04:35 Test 11/11/24 04:35 Range/Units Serum Glucose 108 H 74-106 mg/dL Assessment/Plan Patient is a 59-year-old male who presented with 1 day history of chest discomfort. Cardiology is involved for cardiac aspects of care. She mentions that she was not taking her medications for few days prior to the presentation. She is known to our practice from previously admitted occasions and prior outside visits. It is of note that she was in the hospital in July for comparative presentation. During earlier admission in June/2024, the patient did have some chest pain with abnormal troponin and was found to have non-STEMI. Cardiac catheterization at that point revealed multivessel coronary artery disease and the patient was sent to [facility] for the suggested CABG surgery. It seems that in [facility] they did not do the CABG and the patient had only 1 stent. Later the patient was discharged home from [facility]. In the middle of July patient came back with chest discomfort to our facility and with diagnosis of unstable angina was sent back to [facility]. In [facility], the patient again had another stent. I had an opportunity to talk to the value analyst in [facility]. It seems that during the 1st admission to [facility], they did put 1 stent in LAD. During the 2nd admission they put another stent in circumflex. It is of note that the patient did have LAD with trifurcation with disease in all of them. Reportedly (as per value analyst in [facility]) LAD stent has resulted in pinching of the diagonals. Patient mentions compliance with aspirin/Plavix. It is of note that the patient had some type of abdominal biopsy few days back. Not in acute distress. No JVD. Mucosa is pink and dry. No carotid bruit. Lungs are clear to auscultation. Not using accessory muscles of breathing. Cardiac: Regular, no thrills/gallop. Abdomen is soft. Lower abdominal tenderness can be elicited. There is no rebound. Bowel sound is positive There was no gross mass/hepatomegaly. Extremities do not reveal edema. Dorsalis pedis is 2+ bilateral. 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 She has had kidney stones/hydronephrosis/hydroureter before. Uses a walker for ambulation (secondary to old CVA). Patient was found to have multivessel coronary artery disease (left heart catheterization of July 09, 2024). On July 12 2024, the patient was sent to higher level of care ([facility]) for possible CABG surgery. Patient ended up having 1 stent in LAD and CABG was not performed. At next presentation, patient was sent back to [facility] and had another stent (this time in LCX). Reportedly the patient does have pinching of diagonals. Echocardiogram of December 16, 2022 (performed in [facility]) revealed ejection fraction of 60%, mild TR and right ventricular systolic pressure of 27 mm Hg. Echocardiogram of October 18, 2023 reported ejection fraction 55-60%, mild MR/TR and right ventricular systolic pressure of 25 mm Echocardiogram of May 05, 2024 revealed ejection fraction of 50-55%, normal diastolic, trace MR/TR and right ventricular systolic pressure of 28 mm Hg Echocardiogram of July 05, 2024 had revealed ejection fraction of 40%, trace MR/TR and right ventricular systolic pressure of 30 mm Hg Echocardiogram of July 29, 2024 revealed ejection fraction of 50-55%, no wall motion abnormality, trace mitral regurgitation, no tricuspid regurgitation. As there was no good tricuspid regurgitation jet, right ventricular systolic pressure could not be estimated Nuclear stress test of January 03, 2022 (performed as outpatient) revealed ejection fraction of 80% and no evidence for ischemia/scar. Left heart catheterization of July 09 2024 had revealed triple-vessel coronary artery disease Creatinine: 1.21 - 0.96 Potassium: 4.8 - 3.7 BNP: 17.82 Troponin (high sensitive): <3 Chest x-ray revealed: IMPRESSION: Mild pulmonary vasculature congestion. CT of abdomen and pelvis revealed: Bibasilar atelectasis. Partially visualized heart is unremarkable. Liver, spleen, pancreas and adrenal glands unremarkable. The gallbladder is not definitely visualized. Left Renal scarring. Subcentimeter hypodense right renal lesion that is too small to characterize. 4 mm left renal upper pole cyst. Bilateral ureters are unremarkable. Wall thickening of the urinary bladder. Fibroid uterus. Stomach is unremarkable. Wall thickening of proximal small bowel which is most likely from inadequate distension. The remainder of the Small bowel loops are unremarkable. Appendix is redundantly measuring up to 8 mm. Otherwise, unremarkable. Descending colon sigmoid diverticulosis without diverticulitis. Moderate to large amount of fecal material within the colon. No evidence of intraperitoneal free air or free fluid. No evidence of aortic aneurysm. Mild atherosclerotic calcification of the aorta and bilateral iliacs. No significant lymphadenopathy. Interval postsurgical changes of the previously noted left ventral lower abdominal subcutaneous fat hypodense lesion overlying skin antoni and fat stranding with minimal fluid of the area. Unchanged 2.2 x 1.9 cm heterogeneous density within the subcutaneous fat of the left ventral midabdomen and Additional similar 1 x 1.3 cm lesion within the right ventral paramedian midabdomen. No evidence of acute bony or soft tissues abnormalities. IMPRESSION: Residual fat stranding with Minimal fluid over the left ventral lower abdominal subcutaneous fat previously noted hypodense lesion with overlying skin antoni consistent with recent surgical procedure. Wall thickening of the urinary bladder. Recommend correlation with urinalysis for cystitis. Fibroid uterus. Moderate to large amount of fecal material within the colon. Subcentimeter hypodense right renal lesion that is too small to characterize with nonobstructing left renal calculus and left renal scarring. Additional findings as above. EKG reveals sinus rhythm with nonspecific ST-T changes Tele reveals sinus rhythm Echocardiogram revealed: Left ventricle: Left ventricle was normal-sized with normal systolic function. LVEF was around 60%. There was no gross wall motion abnormality. Left ventricular diastolic function was considered normal. Right ventricle was normal-sized with normal systolic function. Both atria were normal-sized. Aortic valve was trileaflet. There was no aortic insufficiency/stenosis. There was trace mitral and tricuspid regurgitation. There was no pulmonary valve insufficiency. Right ventricular systolic pressure was assessed at 28 mm Hg (normal). There was no pericardial effusion. IVC was normal-sized with reduced respiratory variation. Patient is a 59-year-old female who presents with atypical chest discomfort. Does have history of coronary artery disease. Has had repeated ischemic workups recently. Is on dual antiplatelet therapy. Has not been compliant with the suggested antianginal therapy which could have contributed to the clinical picture. High sensitive troponin has been negative. Acute coronary syndrome is not considered at this point. Did have non-STEMI in early July. Was sent to [facility] for possible CABG as she was found to have multivessel coronary artery disease. Instead of CABG the patient was given 1 stent (in LAD which resulted in pinching of diagonals). During the next presentation, the patient was sent back to [facility] and ended up having another stent, this time in LCX. To continue aspirin/Plavix. ACS is not considered at this point. We will restart antianginal therapy. Patient was counseled to be compliant with medication and followups. Patient had some type of abdominal biopsy recently. 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 Keep potassium above 4 and magnesium above 2 Imdur, long-actin mg daily Ranolazine: 500 mg p.o. b.i.d. Diltiazem-ER: 120 mg daily Awaiting Echocardiogram There is no indication to repeat any ischemic workup at this point Continue ASA/Plavix Follow-up on the recent biopsy as per primary team Cardiac harrison is stable and can be followed as outpatient Lifestyle and risk factor modification is advised A total of 55 minutes was spent reviewing the patient record, examining the patient, making a diagnostic and therapeutic plan, discussing this plan with medical personnel, following up on diagnostic studies and following the patient for clinical stability excluding any and all procedures. At least 50% of this time was spent in direct, [id number] contact. Thank you for allowing me to participate in this patient's care. Further recommendations will depend on patient's clinical course. Please do not hesitate to contact me if you have any questions or concerns. This medical document was created using electronic medical record system with [employer] computerized dictation system. Although this document has been carefully reviewed, there may still be some phonetic and typographical errors. These areas are purely typographical due to the imperfection of the software programs, and do not reflect any compromise in the patient's medical care Plan discussed with: Patient, Other (nurse) BALTAZAR SOMMERS MD Nov 13, 2024 07:34
[2024-11-13 08:30] VITALS: PULSE 61
[2024-11-13 08:56] VITALS: BP 103/65; PULSE 68; RESP 15; TEMP 97.9; O2SAT 97
[2024-11-13 13:30] VITALS: BP 98/54; PULSE 70; RESP 16; TEMP 98.2; O2SAT 95
--- NOTE | 2024-11-13 14:50 | DVHDS2 ---
Discharge Summary Date of Admission Nov 10, 2024 at 20:01 Date of Discharge: Nov 13, 2024 Labs/Diagnostic Data: Laboratory Results Test 11/13/24 12:28 11/12/24 00:30 11/11/24 04:35 11/10/24 14:39 POC Glucose 173 mg/dl (70-106) Urine Color Yellow (Yellow) Urine Clarity Turbid (Clear) Urine pH 5.0 (5.0-9.0) Urine Specific [place] > 1.050 (1.001-1.035) Urine Protein Negative (Negative) Urine Ketones Negative (Negative) Urine Blood Negative /uL (Negative) Urine Nitrite Negative (Negative) Urine Bilirubin Negative (Negative) Urine Urobilinogen Normal mg/dL (Negative) Urine Leukocyte Esterase 3+ /uL (Negative) Urine RBC 9 /hpf (0 - 4) Urine WBC Clumps Present /hpf (None Seen) Urine Microscopic WBC 138 /HPF (0-5) Urine Squamous Epithelial Cells Few /hpf (<5) Urine Calcium Oxalate Crystals Few (None Seen) Urine Bacteria Few /hpf (None Seen) Urine Glucose Normal mg/dL (Normal) White Blood Count 7.1 10^3/uL (4.4-10.8) Red Blood Count 4.27 10^6/uL (4.0-5.20) Hemoglobin 12.9 g/dL (12.2-16.2) Hematocrit 37.5 % (36.0-46.0) Mean Corpuscular Volume 87.8 fL (80.0-100.0) Mean Corpuscular Hemoglobin 30.3 pg (28.0-32.0) Mean Corpuscular Hemoglobin Concent 34.5 g/dL (32.0-36.0) Red Cell Distribution Width 16.1 % (11.8-14.3) Platelet Count 215 10^3/uL (140-450) Mean Platelet Volume 8.7 fL (6.9-10.8) Neutrophils (%) (Auto) 57.3 % (37.0-80.0) Lymphocytes (%) (Auto) 33.0 % (10.0-50.0) Monocytes (%) (Auto) 4.7 % (0.0-12.0) Eosinophils (%) (Auto) 4.3 % (0.0-7.0) Basophils (%) (Auto) 0.7 % (0.0-2.0) Neutrophils # (Auto) 4.1 10 ^3/uL (1.6-8.6) Lymphocytes # (Auto) 2.3 10 ^3/uL (0.4-5.4) Monocytes # (Auto) 0.3 10 ^3/uL (0-1.3) Eosinophils # (Auto) 0.3 10 ^3/uL (0-0.8) Basophils # (Auto) 0 10 ^3/uL (0-0.2) Nucleated Red Blood Cells 0.1 % Sodium Level 145 mmol/L (136-145) Potassium Level 3.7 mmol/L (3.5-5.1) Chloride Level 111 mmol/L (98-107) Carbon Dioxide Level 23 mmol/L (20-31) Anion Gap 11 (5-15) Blood Urea Nitrogen 18 mg/dL (9-23) Creatinine 0.96 mg/dL (0.550-1.02) Glomerular Filtration Rate Calc 67 mL/min (>90) BUN/Creatinine Ratio 18.8 (10.0-20.0) Serum Glucose 108 mg/dL (74-106) Calcium Level 9.1 mg/dL (8.7-10.4) Total Bilirubin 0.4 mg/dL (0.2-1.0) Aspartate Amino Transferase (AST) 11 U/L (13-40) Alanine Aminotransferase (ALT) < 9 U/L (7-40) Alkaline Phosphatase 96 U/L (46-116) Total Protein 6.0 g/dL (5.7-8.2) Albumin 4.1 g/dL (3.2-4.8) Troponin I High Sensitivity < 3 ng/L (</=34) B-Type Natriuretic Peptide 17.82 pg/mL (0-100) Other Laboratory Tests 11/11/24 04:35 Brief Hx & Hospital Course: 59 yo female patient with hx of CAD, CHF, CVA, HLD c/o sharp stabbing chest pain with associated SOB, dizziness, and nausea. Patient sts that she has been experiencing difficulties ever since having a stroke. While in the emergency department the patient was evaluated by the provider, As per provider: Labs, vital signs, and imagining monitored. Patient was admitted on November 10, 2024 for unstable angina. Patient was seen by cardiology. Patient has a history of CAD status post stent to LAD circumflex and LAD. Troponin levels were negative. Patient has a history of recurrent UTI. UA is also negative. Patient was instructed to follow-up as outpatient. She was given Ranexa for pain. She is to continue all current pain medication. She is to follow-up with cardiology in 2 weeks. The patient received proper medical treatment and medications. Vital signs, Imaging and Laboratory Work was monitored daily. All consults recommendations were followed as provided. There were no complaints or new complaints upon discharge, all questions and concerns were answered. Patient was advised to return to the ER or call 911 if any headaches, dizziness, shortness of breath, chest pain, bleeding, fevers, or worsening of medical condition. Patient/Family was counseled about treatment plan, medications, possible side effects, patient verbalized understanding. All questions were answered to the best of my ability. The patient symptoms improved and they are okay to be DC. Condition at Discharge: Good Final Diagnosis/Problems List chest pain- acute coronary syndrome ruled out crohns-chronic Unstable angina CAD s/p coronary artery stent (LAD, LCX) Morbid obesity Crohn's disease Hx of old CVA with residual deficit (left) Abdominal wall mass Discharge Disposition: Home Discharge Instruct/Medications Diet: Cardiac 2g Na,low cholest Activity: No Restrictions, As Tolerated Follow Up/Referral: pcp 1 week Scheduled Aspirin (Aspirin Low Dose), 1 TAB PO DAILY, (Reported) Atorvastatin Calcium (Atorvastatin Calcium), 1 TAB PO DAILY, (Reported) Balsalazide Disodium (Balsalazide Disodium), 3 CAP PO BID, (Reported) Cholecalciferol (Vitamin D-3 Super Strengt), 1 TAB PO DAILY, (Reported) Clopidogrel Bisulfate (Clopidogrel), 1 TAB PO DAILY, (Reported) Docusate Sodium (Docusate Sodium), 1 CAP PO BID, (Reported) Furosemide (Furosemide), 1 TAB PO BID, (Reported) Gabapentin (Gabapentin), 1 CAP PO Q8HR, (Reported) Isosorbide Mononitrate (Isosorbide Mononitrate Er), 1 TAB PO DAILY Lidocaine (Lidoderm 5% Topical Patch), 1 PATCH TOP DAILY Metronidazole (Flagyl), 500 MG PO TID Paroxetine Hydrochloride (Paroxetine Hydrochloride), 1 TAB PO DAILY, (Reported) Polyethylene Glycol 3350 (Miralax), 17 GM PO DAILY Potassium Chloride (Potassium Chloride ER), 1 TAB PO BID, (Reported) Ranolazine (Ranolazine ER), 500 MG PO BID Simvastatin (Simvastatin), 1 TAB PO DAILY, (Reported) Sitagliptin Phosphate (Januvia), 1 TAB PO DAILY, (Reported) Tirzepatide (Mounjaro), 7.5 MG SC QWEEKLY, (Reported) Scheduled PRN Albuterol Sulfate (Albuterol Sulfate Hfa), 108 MCG IN BID PRN Baclofen (Baclofen), 5 MG PO Q8HP PRN Hydrocodone-Acetaminophen (Hydrocodone Bitartrate/AC 10-325 mg), 1 TAB PO Q6HR PRN for CHRONIC PAIN, (Reported) Hydrocodone-Acetaminophen (Hydrocodone Bitartrate/AC 5-325 mg), 1 TAB PO Q8HP PRN Discharge Statement: "Patient was advised to return to the ER or call 911 if any headaches, dizziness, shortness of breath, chest pain, abdominal pain, bleeding, fevers, or worsening of medical condition. Patient was counseled about treatment plan, medications, possible side effects, patientverbalized understanding. All questions were answered to the best of my ability. This discharge took greater then 30 minutes in planning, reviewing documentation, counseling the patient, and discussing with other team members." ASSESSMENT ASSESSMENT Assessment chest pain- acute coronary syndrome ruled out crohns-chronic TED HUSSEIN NP Nov 13, 2024 14:50
[2024-11-13 17:28] VITALS: BP 117/74; PULSE 68; RESP 18; TEMP 98; O2SAT 97
== END 2024-11-13 18:55 | disposition home or self-care (01) | DRG 303 ==
LOC: EDBD 14:01 → ER 14:01 → OVERFLOW 20:01 → TELE-CENTR 11-11 22:45
PROVIDERS: ADMIT Nurse Practitioner; ATTEND Nurse Practitioner
DX: I25.110 Atherosclerotic heart disease of native coronary artery with unstable angina pectoris (principal); I69.354 Hemiplegia and hemiparesis following cerebral infarction affecting left non-dominant side; K50.90 Crohn's disease, unspecified, without complications; I50.32 Chronic diastolic (congestive) heart failure; I69.320 Aphasia following cerebral infarction; I11.0 Hypertensive heart disease with heart failure; I70.0 Atherosclerosis of aorta; E11.9 Type 2 diabetes mellitus without complications; Z68.32 Body mass index [BMI] 32.0-32.9, adult; E66.01 Morbid (severe) obesity due to excess calories; E78.5 Hyperlipidemia, unspecified; K59.00 Constipation, unspecified; N20.0 Calculus of kidney; D25.9 Leiomyoma of uterus, unspecified; K57.30 Diverticulosis of large intestine without perforation or abscess without bleeding; D49.2 Neoplasm of unspecified behavior of bone, soft tissue, and skin; Z95.5 Presence of coronary angioplasty implant and graft; Z91.148 Patient's other noncompliance with medication regimen for other reason; Z90.49 Acquired absence of other specified parts of digestive tract; Z88.6 Allergy status to analgesic agent; Z88.0 Allergy status to penicillin; Z91.040 Latex allergy status; Z85.41 Personal history of malignant neoplasm of cervix uteri; Z85.05 Personal history of malignant neoplasm of liver; Z85.038 Personal history of other malignant neoplasm of large intestine; Z83.3 Family history of diabetes mellitus; Z82.49 Family history of ischemic heart disease and other diseases of the circulatory system; Z82.0 Family history of epilepsy and other diseases of the nervous system; Z80.3 Family history of malignant neoplasm of breast; Z80.0 Family history of malignant neoplasm of digestive organs; Z79.899 Other long term (current) drug therapy; Z79.84 Long term (current) use of oral hypoglycemic drugs; Z79.82 Long term (current) use of aspirin; Z79.02 Long term (current) use of antithrombotics/antiplatelets; Z74.01 Bed confinement status
CPT/HCPCS: 36415; 71045; 74177; 80053; 81001; 82962; 83880; 84484; 85025; 87081; 93005; 93306; G0378; J1815

== ENCOUNTER 2024-11-24 10:39 | Emergency (ER) | payer MEDICARE, MEDICAID ==
[~2024-11-24] VITALS: Ht 157.5 cm; Wt 80.3 kg
[2024-11-24 10:41] VITALS: BP 106/79; PULSE 85; RESP 15; TEMP 98.3; O2SAT 100
--- NOTE | 2024-11-24 11:51 | ED.PDOC ---
History of Present Illness HPI Comments 59 year old female presents to the ED with a chief complaint of suture removal onset today (11/24/24). Patient had a biopsy done at [facility] on 10/25/2024, [facility] region, had antoni placed. Patient came to ED for staple removal, has no further complaints. PMHx angina, CAD, cancer, CHF, CVA, SM, HLD, kidney stones, liver disease, [place]. Denies fever, chills, nausea, vomiting, chest pain, shortness of breath, headache, dizziness. No other symptoms or modifying factors present at this time. Chief Complaint: Wound Check Time Seen by MD: 11:35 Primary Care Provider: unknown Reviewed Notes: Medications, Allergies Allergies: Coded Allergies: Latex (Verified Allergy, Mild, 06/02/24) INCLUDING TAPE, BROWN AND CLEAR TAPE Home Meds Active Scripts Metronidazole (Flagyl) 500 Mg Tab, 500 MG PO TID for 14 Days, #42 TAB Prov:TAMI [employer] 10/28/24 Hydrocodone-Acetaminophen (Hydrocodone Bitartrate/AC 5-325 mg) 1 Tab Tab, 1 TAB PO Q8HP PRN for 5 Days, #15 TAB Prov:SEAN ZEPEDA MD 09/30/24 Ranolazine (Ranolazine ER) 500 Mg Tab, 500 MG PO BID for 30 Days, #60 TAB Prov:TED HUSSEIN [employer] 07/30/24 Baclofen (Baclofen) 10 Mg Tab, 5 MG PO Q8HP PRN for 7 Days, #21 TAB Prov:TED HUSSEIN NP 07/30/24 Isosorbide Mononitrate (Isosorbide Mononitrate Er) 30 Mg Tab, 1 TAB PO DAILY, #30 TAB 5 Refills Prov:TED HUSSEIN NP 07/30/24 Lidocaine (LIDODERM 5% TOPICAL PATCH) 1 Patch Ph, 1 PATCH TOP DAILY for 30 Days, #30 PATCH 0 Refills Prov:MIAN ROMO NP 06/02/24 Polyethylene Glycol 3350 (Miralax) 17 Gm Pow, 17 GM PO DAILY for 15 Days, #15 POW Prov:TED HUSSEIN NP 05/03/24 Albuterol Sulfate (Albuterol Sulfate Hfa) 108 Mcg/Act Aer, 108 MCG IN BID PRN for 10 Days, #1 AER 0 Refills Prov:LILI LUNSFORD DO 12/01/22 Reported Medications Docusate Sodium (Docusate Sodium) 100 Mg Cap, 1 CAP PO BID for 30 Days, #60 07/03/24 Simvastatin (Simvastatin) 20 Mg Tab, 1 TAB PO DAILY for 90 Days, #90 07/03/24 Hydrocodone-Acetaminophen (Hydrocodone Bitartrate/AC 10-325 mg) 1 Tab Tab, 1 TAB PO Q6HR PRN for CHRONIC PAIN for 30 Days, #120 07/03/24 Potassium Chloride (Potassium Chloride ER) 10 Meq Tab, 1 TAB PO BID for 90 Days, #180 07/03/24 Paroxetine Hydrochloride (Paroxetine Hydrochloride) 20 Mg Tab, 1 TAB PO DAILY for 90 Days, #90 05/01/24 Tirzepatide (Mounjaro) 7.5 Mg/0.5 Ml Inj, 7.5 MG SC QWEEKLY for 28 Days, #2 10/18/23 Sitagliptin Phosphate (Januvia) 100 Mg Tab, 1 TAB PO DAILY 10/18/23 Clopidogrel Bisulfate (CLOPIDOGREL) 75 Mg Tab, 1 TAB PO DAILY 10/18/23 Furosemide (Furosemide) 40 Mg Tab, 1 TAB PO BID 10/18/23 Atorvastatin Calcium (ATORVASTATIN CALCIUM) 20 Mg Tab, 1 TAB PO DAILY 10/17/23 Cholecalciferol (Vitamin D-3 Super Strengt) 2,000 Unit Tab, 1 TAB PO DAILY 10/17/23 Gabapentin (Gabapentin) 300 Mg Cap, 1 CAP PO Q8HR for NEUROPATHIC PAIN for 30 Days, #90 10/17/23 Aspirin (Aspirin Low Dose) 81 Mg Tab, 1 TAB PO DAILY 10/17/23 Balsalazide Disodium (Balsalazide Disodium) 750 Mg Cap, 3 CAP PO BID for 30 Days, #180 10/17/23 Information Source: Patient Mode of Arrival: Ambulatory Severity: Moderate Timing: Hours Duration: Since onset Prehospital treatment: None Past Medical History PAST MEDICAL HISTORY: Angina, CAD, Cancer, CHF, CVA, DM, High Lipids, Kidney Stones, Liver, OH Surgical History: Cholecystectomy, Hernia Repair, [employer]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 History Family History Family History: Reviewed,noncontributory to illness, Family hx of Cancer, Family hx of heart naveen Social History Smoker: Non-Smoker Alcohol: Denies ETOH Use Drugs: Denies Drug Use Lives In: Home Constitutional: denies: chills, diaphoresis, fatigue, fever, malaise, sweats, w eakness, others EENTM: denies: blurred vision, double vision, ear bleeding, ear discharge, ear drainage, ear pain, ear ringing, eye pain, eye redness, hearing loss, mouth pain, mouth swelling, nasal discharge, nose bleeding, nose congestion, nose pain, photophobia, tearing, throat pain, throat swelling, voice changes, others Respiratory: denies: cough, hemoptysis, orthopnea, SOB at rest, shortness of breath, SOB with excertion, stridor, wheezing, others Cardiovascular: denies: chest pain, dizzy spells, diaphoresis, Dyspnea on exertion, edema, irregular heart beat, left arm pain, lightheadedness, palpitations, PND, syncope, others Gastrointestinal: denies: abdomen distended, abdominal pain, blood streaked bowels, constipated, diarrhea, dysphagia, difficulty swallowing, hematemesis, melena, nausea, poor appetite, poor fluid intake, rectal bleeding, rectal pain, vomiting, others Genitourinary: denies: abnormal vagina bleeding, burning, dyspareunia, dysuria, flank pain, frequency, hematuria, incontinence, pain, , vagina di scharge, urgency, others Neurological: denies: dizziness, fainting, headache, left sided numbness, left sided weakness, numbness, paresthesia, pre-existing deficit, right sided numbness, right sided weakness, seizure, speech problems, tingling, tremors, weakness, others Musculoskeletal: denies: back pain, gout, joint pain, joint swelling, muscle pain, muscle stiffness, neck pain, others Integumetry: reports: laceration (LLQ); denies: bruises, change in color, change in hair/nails, dryness, lesions, lumps, rash, wounds, others Allergic/Immunocompromised: denies: Difficulty Healing, Frequent Infections, Hives, Itching, others Hematologic/Lymphatic: denies: anemia, blood clots, easy bleeding, easy bruising, swollen glands, others Endocrine: denies: excessive hunger, excessive sweating, excessive thirst, excessive urination, flushing, intolerance to cold, intolerance to heat, unexplained weight gain, unexplained weight loss, others Psychiatric: denies: anxiety, bipolar disorder, depression, hopeless, panic disorder, schizophrenia, sleepless, suicidal, others All Other Systems: Reviewed and Negative Physical Exam General Appearance: Normal HEENT: Normal ENT Inspection, Pharynx Normal, TMs Normal Neck: Full Range of Motion, Non-Tender, Normal, Normal Inspection Respiratory: Chest Non-Tender, Lungs Clear, No Accessory Muscle Use, No Respiratory Distress, Normal Breath Sounds Cardiovascular: No Edema, No JVD, No Murmur, No Gallop, Normal Peripheral Pulses, Regular Rate/Rhythm Breast Exam: Deferred Gastrointestinal: No Organomegaly, Non Tender, No Pulsatile Mass, Normal Bowel Sounds, Soft, Other (Well-healed surgical scars in the left lower quadrant of the abdomen with approximately [address], no evidence of infection, no tenderness to palpation) Genitalia: Deferred Pelvic: Deferred Rectal: Deferred Extremities: No calf tenderness, Normal capillary refill, Normal inspection, Normal range of motion, Non-tender, No pedal edema Musculoskeletal : Apperance: Normal Neurologic: Alert, pattern changer II-XII nml as Tested, No Motor Deficits, Normal Affect, Normal Mood, No Sensory Deficits Cerebellar Function: Normal Reflexes: Normal Skin: Dry Lymphatic: No Adenopathy Was a procedure done? Was a procedure done?: No Differential Dx Considerations may include: Wound dehiscence, wound infection, postop complication, diverticulitis, cellulitis, necrotizing fasciitis, abscess X-Ray, Labs, Meds, VS Vital Signs Date Time Temp Pulse Resp B/P (MAP) Pulse Ox O2 Delivery O2 Flow Rate FiO2 11/24/24 10:41 98.3 85 15 106/79 100 98.3 X-Ray, Labs, Meds, VS Comment 59-year-old female with a history of left lower quadrant abdominal mass with biopsy here today requesting removal of her antoni that were placed approximately one month ago. Patient states that she is in the process of getting follow up for her pathology results but states that she has been having some difficulty but does not need any assistance for that today and it is strictly here for removal of her antoni. Patient has no other complaints. Given the antoni had been in place for approximately one month and the patient still does not have any ETA for when she will be able to see her specialist, decision was made to remove the antoni. They were all removed without complication. The patient was very appreciative of this. No wound dehiscence. No concern for secondary infection at this time. Patient was discharged back home in stable condition with strict instructions and emphasis on following up with her specialist for pathology results and for further management and care. Time of 1ST Reevaluation: 12:05 Reevaluation 1ST: Unchanged Patient Education/Counseling: Diagnosis, Treatment, Prognosis Family Education/Counseling: No Family Present SEPSIS Sepsis Screen Date sepsis recognized/suspect: Nov 24, 2024 Time Sepsis recognized/suspect: 104 Recent Procedure: No On Antibiotic Therapy: No Respiratory Rate >20: No Heart Rate >90: No Temp<36 C (96.8 F) or >38.3 C: No SBP <90 or MAP <65 mmHG: No New Acute Mental Status Change: No Is the patient on CPAP, BIPAP,: No Vital Signs Date Time Temp Pulse Resp B/P (MAP) Pulse Ox O2 Delivery O2 Flow Rate FiO2 11/24/24 10:41 98.3 85 15 106/79 100 98.3 Departure 1 Departure Time of Disposition: 13:28 Impression: Primary Impression: Encounter for staple removal Disposition: 01 HOME / SELF CARE / HOMELESS Condition: Stable Critical Care Note Critical Care Time?: No Stability Stability form required: No Heart Score Heart Score: Heart Score Response (Comments) Value History N/A 0 EKG N/A 0 Age N/A 0 Risk Factors N/A 0 Troponin N/A 0 Total 0 I personally scribed for KAHLIL BETANCOURT MD ([email or web address]) on 11/24/24 at 11:51. Electronically submitted by Gisell Edwards ([email or web address]). KAHLIL BETANCOURT MD Nov 24, 2024 11:51
== END 2024-11-24 13:33 | disposition home or self-care (01) ==
LOC: ER 10:39
DX: Z48.01 Encounter for change or removal of surgical wound dressing (principal); E78.5 Hyperlipidemia, unspecified; E11.9 Type 2 diabetes mellitus without complications; I50.9 Heart failure, unspecified; I25.2 Old myocardial infarction; I25.10 Atherosclerotic heart disease of native coronary artery without angina pectoris; Z79.899 Other long term (current) drug therapy; Z79.85 Long-term (current) use of injectable non-insulin antidiabetic drugs; Z79.84 Long term (current) use of oral hypoglycemic drugs; Z79.82 Long term (current) use of aspirin; Z79.02 Long term (current) use of antithrombotics/antiplatelets; Z86.73 Personal history of transient ischemic attack (TIA), and cerebral infarction without residual deficits; Z87.442 Personal history of urinary calculi; Z90.49 Acquired absence of other specified parts of digestive tract; Z98.890 Other specified postprocedural states

== ENCOUNTER 2024-11-30 08:02 | Inpatient (IN) | payer MEDICARE, MEDICAID ==
[~2024-11-30] VITALS: Ht 157.5 cm; Wt 87.6 kg
--- NOTE | 2024-11-30 08:20 | ED.PDOC ---
TRANSITIONAL LIVING SPECIALIST HPI Comments 59-year-old female with a known history of uterine cancer, Crohn's, ulcerative colitis, presents here with bilateral lower quadrant pain since yesterday night. She states earlier in the day she began to have black stools. She is on Plavix. Patient reports significant pain. We will also reports diarrhea but that has been chronic. No nausea no vomiting. Patient took a [place] home without significant relief. Denies any dysuria. No recent cough cold runny nose fever or chills. Chief Complaint: Pelvic Pain Time Seen by MD: 08:30 Reviewed Notes: Nurses Notes, Medications, Allergies Allergies: Coded Allergies: Latex (Verified Allergy, Mild, 06/02/24) INCLUDING TAPE, BROWN AND CLEAR TAPE Home Meds Active Scripts Metronidazole (Flagyl) 500 Mg Tab, 500 MG PO TID for 14 Days, #42 TAB Prov:TAMI ROOT SAWING AND ASSEMBLY SUPERVISOR 10/28/24 Hydrocodone-Acetaminophen (Hydrocodone Bitartrate/AC 5-325 mg) 1 Tab Tab, 1 TAB PO Q8HP PRN for 5 Days, #15 TAB Prov:SEAN ZEPEDA MD 09/30/24 Ranolazine (Ranolazine ER) 500 Mg Tab, 500 MG PO BID for 30 Days, #60 TAB Prov:TED HUSSEIN NP 07/30/24 Baclofen (Baclofen) 10 Mg Tab, 5 MG PO Q8HP PRN for 7 Days, #21 TAB Prov:TED HUSSEIN NP 07/30/24 Isosorbide Mononitrate (Isosorbide Mononitrate Er) 30 Mg Tab, 1 TAB PO DAILY, #30 TAB 5 Refills Prov:TED HUSSEIN NP 07/30/24 Lidocaine (LIDODERM 5% TOPICAL PATCH) 1 Patch Ph, 1 PATCH TOP DAILY for 30 Days, #30 PATCH 0 Refills Prov:MIAN ROMO NP 06/02/24 Polyethylene Glycol 3350 (Miralax) 17 Gm Pow, 17 GM PO DAILY for 15 Days, #15 POW Prov:TED HUSSEIN NP 05/03/24 Albuterol Sulfate (Albuterol Sulfate Hfa) 108 Mcg/Act Aer, 108 MCG IN BID PRN for 10 Days, #1 AER 0 Refills Prov:LILI LUNSFORD DO 12/01/22 Reported Medications Docusate Sodium (Docusate Sodium) 100 Mg Cap, 1 CAP PO BID for 30 Days, #60 07/03/24 Simvastatin (Simvastatin) 20 Mg Tab, 1 TAB PO DAILY for 90 Days, #90 07/03/24 Hydrocodone-Acetaminophen (Hydrocodone Bitartrate/AC 10-325 mg) 1 Tab Tab, 1 TAB PO Q6HR PRN for CHRONIC PAIN for 30 Days, #120 07/03/24 Potassium Chloride (Potassium Chloride ER) 10 Meq Tab, 1 TAB PO BID for 90 Days, #180 07/03/24 Paroxetine Hydrochloride (Paroxetine Hydrochloride) 20 Mg Tab, 1 TAB PO DAILY for 90 Days, #90 05/01/24 Tirzepatide (Mounjaro) 7.5 Mg/0.5 Ml Inj, 7.5 MG SC QWEEKLY for 28 Days, #2 10/18/23 Sitagliptin Phosphate (Januvia) 100 Mg Tab, 1 TAB PO DAILY 10/18/23 Clopidogrel Bisulfate (CLOPIDOGREL) 75 Mg Tab, 1 TAB PO DAILY 10/18/23 Furosemide (Furosemide) 40 Mg Tab, 1 TAB PO BID 10/18/23 Atorvastatin Calcium (ATORVASTATIN CALCIUM) 20 Mg Tab, 1 TAB PO DAILY 10/17/23 Cholecalciferol (Vitamin D-3 Super Strengt) 2,000 Unit Tab, 1 TAB PO DAILY 10/17/23 Gabapentin (Gabapentin) 300 Mg Cap, 1 CAP PO Q8HR for NEUROPATHIC PAIN for 30 Days, #90 10/17/23 Aspirin (Aspirin Low Dose) 81 Mg Tab, 1 TAB PO DAILY 10/17/23 Balsalazide Disodium (Balsalazide Disodium) 750 Mg Cap, 3 CAP PO BID for 30 Days, #180 10/17/23 Information Source: Patient Mode of Arrival: Ambulatory Timing: Days Prehospital treatment: None Severity: Moderate Vaginal Discharge: None Vaginal Lesions: None Vaginal Mass: None Last Consensual Ladd: Unknown Control: None Blood Type: Unknown Symptoms of Possible : None Associated Signs and Symptoms: Abdominal Pain Past Medical History PAST MEDICAL HISTORY: Angina, CAD, Cancer, CHF, CVA, DM, High Lipids, Kidney Stones, Liver, SC Past Medical History (Other): Uterine cancer, Crohn's ulcerative colitis Surgical History: Cholecystectomy, Hernia Repair, PTCA FIRE ALARM REPAIRER History: No Pertinent FIRE ALARM REPAIRER History Family History Family History: Reviewed,noncontributory to illness, Family hx of Cancer, Family hx of heart naveen Social History Smoker: Non-Smoker Alcohol: Denies ETOH Use Drugs: Denies Drug Use Lives In: Home Constitutional: denies: chills, diaphoresis, fatigue, fever, malaise, sweats, weakness, others EENTM: denies: blurred vision, double vision, ear bleeding, ear discharge, ear drainage, ear pain, ear ringing, eye pain, eye redness, hearing loss, mouth pain, mouth swelling, nasal discharge, nose bleeding, nose congestion, nose pain, photophobia, tearing, throat pain, throat swelling, voice changes, others Respiratory: denies: cough, hemoptysis, orthopnea, SOB at rest, shortness of breath, SOB with excertion, stridor, wheezing, others Cardiovascular: denies: chest pain, dizzy spells, diaphoresis, Dyspnea on exertion, edema, irregular heart beat, left arm pain, lightheadedness, palpitations, PND, syncope, others Gastrointestinal: reports: abdominal pain (suprapubic), diarrhea, melena; denies: abdomen distended, blood streaked bowels, constipated, dysphagia, difficulty swallowing, hematemesis, nausea, poor appetite, poor fluid intake, rectal bleeding, rectal pain, vomiting, others Genitourinary: reports: others (pelvic pressure/pain); denies: abnormal vagina bleeding, burning, dyspareunia, dysuria, flank pain, frequency, hematuria, incontinence, pain, , vagina discharge, urgency Neurological: denies: dizziness, fainting, headache, left sided numbness, left sided weakness, numbness, paresthesia, pre-existing deficit, right sided numbness, right sided weakness, seizure, speech problems, tingling, tremors, weakness, others Musculoskeletal: denies: back pain, gout, joint pain, joint swelling, muscle pain, muscle stiffness, neck pain, others Integumetry: denies: bruises, change in color, change in hair/nails, dryness, laceration, lesions, lumps, rash, wounds, others Allergic/Immunocompromised: denies: Difficulty Healing, Frequent Infections, Hives, Itching, others Hematologic/Lymphatic: denies: anemia, blood clots, easy bleeding, easy bruising, swollen glands, others Endocrine: denies: excessive hunger, excessive sweating, excessive thirst, excessive urination, flushing, intolerance to cold, intolerance to heat, unexplained weight gain, unexplained weight loss, others Psychiatric: denies: anxiety, bipolar disorder, depression, hopeless, panic disorder, schizophrenia, sleepless, suicidal, others All Other Systems: Reviewed and Negative Physical Exam General Appearance: Moderate Distress, Normal HEENT: Normal ENT Inspection, Pharynx Normal Neck: Full Range of Motion, Non-Tender, Normal, Normal Inspection Respiratory: Chest Non-Tender, Lungs Clear, No Accessory Muscle Use, No Respiratory Distress, Normal Breath Sounds Cardiovascular: No Edema, No Murmur, No Gallop, Normal Peripheral Pulses, Regular Rate/Rhythm Breast Exam: Deferred Gastrointestinal: Soft, Tenderness (Tenderness to palpation to the left lower quadrant) Genitalia: Deferred Pelvic: Deferred Rectal: Deferred Extremities: No calf tenderness, Normal capillary refill, Normal inspection, Normal range of motion, Non-tender, No pedal edema Musculoskeletal : Apperance: Normal Neurologic: Alert, brick siding applicator II-XII nml as Tested, No Motor Deficits, Normal Affect, Normal Mood, No Sensory Deficits Cerebellar Function: Normal Reflexes: Normal Skin: Dry, Normal Color, Warm Lymphatic: No Adenopathy Was a procedure done? Was a procedure done?: No Differential Diagnosis (FIRE ALARM REPAIRER) Vaginal Bleeding: N/A Mass / Lesion: N/A Vaginal Discharge: Other (pelvic inflammatory disease, irritable bowel syndrome, diverticulitis, uterine mass, abscess), N/A X-Ray, Labs, Meds, VS Vital Signs Date Time Temp Pulse Resp B/P (MAP) Pulse Ox O2 Delivery O2 Flow Rate FiO2 11/30/24 15:41 79 18 142/73 (96) 95 11/30/24 13:00 79 18 142/73 11/30/24 10:02 98.9 73 17 114/73 (87) 95 98.9 11/30/24 10:02 73 17 95 Room Air* 0 21 11/30/24 08:05 98.2 78 18 146/80 94 98.2 Lab Test 11/30/24 12:29 11/30/24 09:19 11/30/24 08:25 Range/Units Urine Color Yellow Yellow Urine Clarity Turbid H Clear Urine pH 5.5 5.0-9.0 Urine Specific [place] 1.024 1.001-1.035 Urine Protein Trace H Negative Urine Ketones Negative Negative Urine Blood Trace H Negative /uL Urine Nitrite Negative Negative Urine Bilirubin Negative Negative Urine Urobilinogen Normal Negative mg/dL Urine Leukocyte Esterase 2+ Negative /uL Urine RBC 27 0 - 4 /hpf Urine Microscopic WBC 242 H 0-5 /HPF Urine Squamous Epithelial Cells Few <5 /hpf Urine Bacteria None seen None Seen /hpf Urine Glucose 1+ H Normal mg/dL White Blood Count 7.7 4.4-10.8 10^3/uL Red Blood Count 4.70 4.0-5.20 10^6/uL Hemoglobin 14.1 12.2-16.2 g/dL Hematocrit 41.8 36.0-46.0 % Mean Corpuscular Volume 89.0 80.0-100.0 fL Mean Corpuscular Hemoglobin 30.0 28.0-32.0 pg Mean Corpuscular Hemoglobin Concent 33.7 32.0-36.0 g/dL Red Cell Distribution Width 16.0 H 11.8-14.3 % Platelet Count 229 140-450 10^3/uL Mean Platelet Volume 8.6 6.9-10.8 fL Neutrophils (%) (Auto) 58.1 37.0-80.0 % Lymphocytes (%) (Auto) 32.7 10.0-50.0 % Monocytes (%) (Auto) 5.3 0.0-12.0 % Eosinophils (%) (Auto) 3.5 0.0-7.0 % Basophils (%) (Auto) 0.4 0.0-2.0 % Neutrophils # (Auto) 4.5 1.6-8.6 10 ^3/uL Lymphocytes # (Auto) 2.5 0.4-5.4 10 ^3/uL Monocytes # (Auto) 0.4 0-1.3 10 ^3/uL Eosinophils # (Auto) 0.3 0-0.8 10 ^3/uL Basophils # (Auto) 0 0-0.2 10 ^3/uL Nucleated Red Blood Cells 0.2 % Sodium Level 140 136-145 mmol/L Potassium Level 3.8 3.5-5.1 mmol/L Chloride Level 101 98-107 mmol/L Carbon Dioxide Level 28 20-31 mmol/L Anion Gap 11 5-15 Blood Urea Nitrogen 12 9-23 mg/dL Creatinine 1.17 H 0.550-1.02 mg/dL Glomerular Filtration Rate Calc 53 >90 mL/min BUN/Creatinine Ratio 10.3 10.0-20.0 Serum Glucose 299 H 74-106 mg/dL Calcium Level 9.5 8.7-10.4 mg/dL Total Bilirubin 0.3 0.2-1.0 mg/dL Aspartate Amino Transferase (AST) 13 13-40 U/L Alanine Aminotransferase (ALT) < 9 7-40 U/L Alkaline Phosphatase 155 H 46-116 U/L Total Protein 6.8 5.7-8.2 g/dL Albumin 4.7 3.2-4.8 g/dL Stool Occult Blood Negative Negative Stool Occult Blood Sample #3 Negative Current Medications Medications (Trade) Dose Ordered Sig/Damon Route Start Time Stop Time Status Last Admin Morphine Sulfate 4 mg ONCE ONCE IM 11/30/24 13:00 11/30/24 13:01 DC 11/30/24 13:00 Ondansetron HCl (Zofran Po) 4 mg ONCE ONCE PO 11/30/24 13:00 11/30/24 13:01 DC 11/30/24 13:00 [place] [id number] Ph: [phone] DIAGNOSTIC IMAGING Diagnostic Imaging Report : [id number] Signed PATIENT: KAVYA TEJEDA ACCT: [id number] UNIT: [id number] : 1965 LOC: ER ROOM / BED: / AGE / SEX: 59 / F ADM STATUS: REG ER SERVICE 0820 ORDERING PHYSICIAN: SIERRA ALMANZA MD PROCEDURE(s): ABPL - CT AB PEL WO CON-NO ORAL OR IV REASON: Rule out abscess, diverticulitis ORDER NUMBER(s): [id number], ACCESSION NUMBER(s): [id number] Exam: CT CT AB PEL WO CON-NO ORAL OR IV History: Rule out abscess, diverticulitis Comparison Study: CT CT AB PEL WITH ORAL CON ONLY on DOS: 10/24/24, CT CT AB PEL WO CON-NO ORAL OR IV on DOS: 07/29/24, CT CT AB PEL WO CON-NO ORAL OR IV on DOS: 07/01/24, CT CT AB PEL WO CON-NO ORAL OR IV on DOS: 04/29/24, CT CT AB PEL WO CON- NO ORAL OR IV on DOS: 11/03/23 Technique: Multidetector spiral CT of the abdomen was performed from lung bases to pubic symphysis. Imaging was performed without IV contrast. Axial, coronal and sagittal multiplanar reformats were obtained from the axial data set by the technologist. Radiation Dose : 1. Abdomen/Pelvis: CTDIvol 19.4 mGy, DLP 1122 mGy*cm. Findings: Evaluation of solid organs is limited due to lack of intravenous contrast use. Lung Bases: No acute or significant lung base finding. Normal heart size. No pleural or pericardial effusion. Liver: The liver is normal in size. No focal lesions. Gallbladder and Biliary Tree: Gallbladder is surgically absent. Spleen: Unremarkable Pancreas: The pancreas is grossly normal in appearance. Adrenal Glands: Unremarkable Kidneys: 5 mm stone is seen in the midpole of the left kidney. No hydronephrosis. Bladder: Grossly unremarkable for degree of distention. Bowel: The stomach is grossly normal in appearance. Small bowel and colon are normal in caliber and distribution. Normal appendix is visualized in the right lower quadrant without findings of appendicitis. [id number] colonic stool burden. Ascites: Absent Lymphadenopathy: No mesenteric, retroperitoneal or periportal lymphadenopathy. Abdominal Wall and Mesentery: Postsurgical changes are seen in the anterior abdominal wall. Vasculature: The visualized abdominal aorta is normal in size and caliber. Evaluation of abdominal and pelvic vessels is limited due to lack of intravenous contrast. Pelvic Organs: Unremarkable Musculoskeletal: No aggressive focal bony lesions, acute fractures or dislocation. IMPRESSION: 1. Left renal nephrolithiasis without hydronephrosis. 2. Moderate to large colonic stool burden. Radiation optimization: All CT scans at this facility use at least one of these dose optimization techniques: automated exposure control mA and/or kV adjustment per patient size (includes targeted exams where dose is matched to clinical indication) or iterative reconstruction. ATED BY: RANDY TANNER MD DICTATED DATE/TIME: 11/30/24 1326 SIGNED BY: RANDY TANNER MD SIGNED DATE/TIME: 11/30/24 1326 CC: 59-year-old female with a known history of uterine cancer, Crohn's and ulcerative colitis here with lower abdominal pain and black stools. On my examination she is in significant distress with left lower quadrant tenderness to palpation. I have written for morphine and Zofran IV. CT abdomen pelvis with IV contrast has been ordered to rule out abscess, diverticulitis, recurrence of her cancer. I have ordered a CBC CMP, urinalysis and Hemoccult. CBC CMP urinalysis have returned normal. Patient is Hemoccult negative. CBC is unremarkable. CMP with hyperglycemia mild acute kidney injury and elevated alk phos. Urine positive for UTI. At this time I had ordered a CT abdomen pelvis with IV contrast to rule out abscess diverticulitis and return of the cancer but she is unable to perform IV study as we were unable to obtain IV access. Ultimately was done without contrast. CT abdomen pelvis does demonstrate nephrolithiasis without hydronephrosis and significant stool. At this time given her UTI along with the nephrolithiasis, and the acute kidney injury, patient requires inpatient admission for IV antibiotics and care. I have started the patient on Rocephin IV. Hospitalist team has been contacted for admission. Time of 1ST Reevaluation: 09:00 Reevaluation 1ST: Unchanged Patient Education/Counseling: Diagnosis, Treatment Family Education/Counseling: No Family Present Departure 1 Departure Time of Disposition: 11:00 Impression: Primary Impression: Acute UTI (urinary tract infection) Additional Impressions: Nephrolithiasis Acute kidney injury Disposition: ADMITTED INPATIENT Condition: Fair Critical Care Note Critical Care Time?: No Stability Stability form required: No Heart Score Heart Score: Heart Score Response (Comments) Value History N/A 0 EKG N/A 0 Age N/A 0 Risk Factors N/A 0 Troponin N/A 0 Total 0 I personally scribed for SIERRA ALMANZA MD ([email or web address]) on 11/30/24 at 08:20. Electronically submitted by Karen Miles ([email or web address]). I personally scribed for SIERRA ALMANZA MD ([email or web address]) on 11/30/24 at 13:57. Electronically submitted by Karen Miles ([email or web address]). SIERRA ALMANZA MD Nov 30, 2024 08:20
[2024-11-30] MEDS: ONDANSETRON HCL 4 MG/2 ML VIAL IV ONE (08:30)
[2024-11-30] MEDS: MORPHINE SULFATE 4 MG/ML SYR/VIAL IV ONE (08:30)
[2024-11-30 09:40] LABS: Hematocrit 41.8 % (36.0-46.0); Hemoglobin 14.1 g/dL (12.2-16.2); Mean Corpuscular Hemoglobin 30.0 pg (28.0-32.0); Mean Corpuscular Volume 89.0 fL (80.0-100.0); Nucleated Red Blood Cells % 0.2 %
[2024-11-30 09:51] LABS: Albumin 4.7 g/dL (3.2-4.8); Anion Gap 11 (5-15); BUN/Creatinine Ratio 10.3 (10.0-20.0); Blood Urea Nitrogen 12 mg/dL (9-23); Calcium 9.5 mg/dL (8.7-10.4); Carbon Dioxide 28 mmol/L (20-31); Chloride 101 mmol/L (98-107); Potassium 3.8 mmol/L (3.5-5.1); Sodium 140 mmol/L (136-145); Total Protein 6.8 g/dL (5.7-8.2)
[2024-11-30 09:52] LABS: Bilirubin, Total 0.3 mg/dL (0.2-1.0)
[2024-11-30 09:54] LABS: Alanine Aminotransferase < 9 U/L (7-40); Alkaline Phosphatase 155 U/L (46-116); Glucose 299 mg/dL (74-106)
[2024-11-30 10:02] VITALS: PULSE 73; RESP 17; O2SAT 95
[2024-11-30 12:49] LABS: Urine Protein, UAD TRACE (Negative)
[2024-11-30] MEDS: ONDANSETRON ODT 4 MG TAB PO ONE (13:00)
[2024-11-30] MEDS: MORPHINE SULFATE 4 MG/ML SYR/VIAL IM ONE ×2 (13:00→20:31)
--- NOTE | 2024-11-30 13:28 | DVH ---
Exam: CT CT AB PEL WO CON-NO ORAL OR IV History: Rule out abscess, diverticulitis Comparison Study: CT CT AB PEL WITH ORAL CON ONLY on DOS: 10/24/24, CT CT AB PEL WO CON-NO ORAL OR IV on DOS: 07/29/24, CT CT AB PEL WO CON-NO ORAL OR IV on DOS: 07/01/24, CT CT AB PEL WO CON-NO ORAL OR IV on DOS: 04/29/24, CT CT AB PEL WO CON-NO ORAL OR IV on DOS: 11/03/23 Technique: Multidetector spiral CT of the abdomen was performed from lung bases to pubic symphysis. Imaging was performed without IV contrast. Axial, coronal and sagittal multiplanar reformats were ob tained from the axial data set by the technologist. Radiation Dose : 1. Abdomen/Pelvis: CTDIvol 19.4 mGy, DLP 1122 mGy*cm. Findings: Evaluation of solid organs is limited due to lack of intravenous contrast use. Lung Bases: No acute or significant lung base finding. Normal heart size. No pleural or pericardial effusion. Liver: The liver is normal in size. No focal lesions. Gallbladder and Biliary Tree: Gallbladder is surgically absent. Spleen: Unremarkable Pancreas: The pancreas is grossly normal in appearance. Adrenal Glands: Unremarkable Kidneys: 5 mm stone is seen in the midpole of the left kidney. No hydronephrosis. Bladder: Grossly unremarkable for degree of distention. Bowel: The stomach is grossly normal in appearance. Small bowel and colon are normal in caliber and d istribution. Normal appendix is visualized in the right lower quadrant without findings of appendici tis. Hagfkapj-gf-gqmoy colonic stool burden. Ascites: Absent Lymphadenopathy: No mesenteric, retroperitoneal or periportal lymphadenopathy. Abdominal Wall and Mesentery: Postsurgical changes are seen in the anterior abdominal wall. Vasculature: The visualized abdominal aorta is normal in size and caliber. Evaluation of abdominal a nd pelvic vessels is limited due to lack of intravenous contrast. Pelvic Organs: Unremarkable Musculoskeletal: No aggressive focal bony lesions, acute fractures or dislocation. IMPRESSION: 1. Left renal nephrolithiasis without hydronephrosis. 2. Moderate to large colonic stool burden. Radiation optimization: All CT scans at this facility use at least one of these dose optimization shaila hniques: automated exposure control mA and/or kV adjustment per patient size (includes targeted exam s where dose is matched to clinical indication) or iterative reconstruction.
--- NOTE | 2024-11-30 17:09 | DVHHP2 ---
Patient Family History: FH: breast cancer G8 SISTER FH: cancer FH: liver cancer G8 MOTHER, , Cause: Liver cancer Family history: Alzheimer's disease G8 MOTHER, , Cause: Liver cancer, Onset:Unknown Family history: Cardiovascular disease G8 FATHER, , Cause: CHF (congestive heart failure), Onset:Unknown Family history: Diabetes mellitus G8 BROTHER, Onset:Unknown Thyroid disease 19 CHILD Thyroid disease 19 CHILD Allergies: Coded Allergies: Latex (Verified Allergy, Mild, 06/02/24) INCLUDING TAPE, BROWN AND CLEAR TAPE Home Meds Active Scripts Metronidazole (Flagyl) 500 Mg Tab, 500 MG PO TID for 14 Days, #42 TAB Prov:TAMI ROOT PARQUETRY LAYER 10/28/24 Hydrocodone-Acetaminophen (Hydrocodone Bitartrate/AC 5-325 mg) 1 Tab Tab, 1 TAB PO Q8HP PRN for 5 Days, #15 TAB Prov:SEAN ZEPEDA MD 09/30/24 Ranolazine (Ranolazine ER) 500 Mg Tab, 500 MG PO BID for 30 Days, #60 TAB Prov:TED HUSSEIN NP 07/30/24 Baclofen (Baclofen) 10 Mg Tab, 5 MG PO Q8HP PRN for 7 Days, #21 TAB Prov:TED HUSSEIN NP 07/30/24 Isosorbide Mononitrate (Isosorbide Mononitrate Er) 30 Mg Tab, 1 TAB PO DAILY, #30 TAB 5 Refills Prov:TED HUSSEIN NP 07/30/24 Lidocaine (LIDODERM 5% TOPICAL PATCH) 1 Patch Ph, 1 PATCH TOP DAILY for 30 Days, #30 PATCH 0 Refills Prov:MIAN ROMO CAR HEAD LINER INSTALLER 06/02/24 Polyethylene Glycol 3350 (Miralax) 17 Gm Pow, 17 GM PO DAILY for 15 Days, #15 POW Prov:TED HUSSEIN NP 05/03/24 Albuterol Sulfate (Albuterol Sulfate Hfa) 108 Mcg/Act Aer, 108 MCG IN BID PRN for 10 Days, #1 AER 0 Refills Prov:LILI LUNSFORD DO 12/01/22 Reported Medications Docusate Sodium (Docusate Sodium) 100 Mg Cap, 1 CAP PO BID for 30 Days, #60 07/03/24 Simvastatin (Simvastatin) 20 Mg Tab, 1 TAB PO DAILY for 90 Days, #90 07/03/24 Hydrocodone-Acetaminophen (Hydrocodone Bitartrate/AC 10-325 mg) 1 Tab Tab, 1 TAB PO Q6HR PRN for CHRONIC PAIN for 30 Days, #120 07/03/24 Potassium Chloride (Potassium Chloride ER) 10 Meq Tab, 1 TAB PO BID for 90 Days, #180 07/03/24 Paroxetine Hydrochloride (Paroxetine Hydrochloride) 20 Mg Tab, 1 TAB PO DAILY for 90 Days, #90 05/01/24 Tirzepatide (Mounjaro) 7.5 Mg/0.5 Ml Inj, 7.5 MG SC QWEEKLY for 28 Days, #2 10/18/23 Sitagliptin Phosphate (Januvia) 100 Mg Tab, 1 TAB PO DAILY 10/18/23 Clopidogrel Bisulfate (CLOPIDOGREL) 75 Mg Tab, 1 TAB PO DAILY 10/18/23 Furosemide (Furosemide) 40 Mg Tab, 1 TAB PO BID 10/18/23 Atorvastatin Calcium (ATORVASTATIN CALCIUM) 20 Mg Tab, 1 TAB PO DAILY 10/17/23 Cholecalciferol (Vitamin D-3 Super Strengt) 2,000 Unit Tab, 1 TAB PO DAILY 10/17/23 Gabapentin (Gabapentin) 300 Mg Cap, 1 CAP PO Q8HR for NEUROPATHIC PAIN for 30 Days, #90 10/17/23 Aspirin (Aspirin Low Dose) 81 Mg Tab, 1 TAB PO DAILY 10/17/23 Balsalazide Disodium (Balsalazide Disodium) 750 Mg Cap, 3 CAP PO BID for 30 Days, #180 10/17/23 Vital Signs Vital Signs Date Time Temp Pulse Resp B/P (MAP) Pulse Ox O2 Delivery O2 Flow Rate FiO2 11/30/24 15:41 79 18 142/73 (96) 95 11/30/24 10:02 98.9 98.9 11/30/24 10:02 Room Air* 0 21 SEPSIS Sepsis Screen Date sepsis recognized/suspect: Nov 30, 2024 Time Sepsis recognized/suspect: 804 Recent Procedure: No On Antibiotic Therapy: No Respiratory Rate >20: No Heart Rate >90: No Temp<36 C (96.8 F) or >38.3 C: No SBP <90 or MAP <65 mmHG: No New Acute Mental Status Change: No Is the patient on CPAP, BIPAP,: No Physician Orders Ct Ab Pel Wo Con-No Oral Or Iv (11/30/24 08:20) Morphine Sulfate Injection (11/30/24 17:15) Ceftriaxone 1gm/50ml D5w (Rocephin) (11/30/24 17:15) Sodium Chloride 0.9% (11/30/24 17:15) Vital Signs Date Time Temp Pulse Resp B/P (MAP) Pulse Ox O2 Delivery O2 Flow Rate FiO2 11/30/24 15:41 79 18 142/73 (96) 95 11/30/24 13:00 79 18 142/73 11/30/24 10:02 98.9 73 17 114/73 (87) 95 98.9 11/30/24 10:02 73 17 95 Room Air* 0 21 11/30/24 08:05 98.2 78 18 146/80 94 98.2 Laboratory Tests Test 11/30/24 09:19 White Blood Count 7.7 10^3/uL (4.4-10.8) Medications Medications Dose Ordered Sig/Damon Route Start Time Stop Time Status Last Admin Dose Admin Morphine Sulfate 4 mg ONCE ONCE IM 11/30/24 13:00 11/30/24 13:01 DC 11/30/24 13:00 Ondansetron HCl 4 mg ONCE ONCE PO 11/30/24 13:00 11/30/24 13:01 DC 11/30/24 13:00 Results Labs Test 11/30/24 12:29 11/30/24 09:19 11/30/24 08:25 Range/Units Urine Color Yellow Yellow Urine Clarity Turbid H Clear Urine pH 5.5 5.0-9.0 Urine Specific [place] 1.024 1.001-1.035 Urine Protein Trace H Negative Urine Ketones Negative Negative Urine Blood Trace H Negative /uL Urine Nitrite Negative Negative Urine Bilirubin Negative Negative Urine Urobilinogen Normal Negative mg/dL Urine Leukocyte Esterase 2+ Negative /uL Urine RBC 27 0 - 4 /hpf Urine Microscopic WBC 242 H 0-5 /HPF Urine Squamous Epithelial Cells Few <5 /hpf Urine Bacteria None seen None Seen /hpf Urine Glucose 1+ H Normal mg/dL White Blood Count 7.7 4.4-10.8 10^3/uL Red Blood Count 4.70 4.0-5.20 10^6/uL Hemoglobin 14.1 12.2-16.2 g/dL Hematocrit 41.8 36.0-46.0 % Mean Corpuscular Volume 89.0 80.0-100.0 fL Mean Corpuscular Hemoglobin 30.0 28.0-32.0 pg Mean Corpuscular Hemoglobin Concent 33.7 32.0-36.0 g/dL Red Cell Distribution Width 16.0 H 11.8-14.3 % Platelet Count 229 140-450 10^3/uL Mean Platelet Volume 8.6 6.9-10.8 fL Neutrophils (%) (Auto) 58.1 37.0-80.0 % Lymphocytes (%) (Auto) 32.7 10.0-50.0 % Monocytes (%) (Auto) 5.3 0.0-12.0 % Eosinophils (%) (Auto) 3.5 0.0-7.0 % Basophils (%) (Auto) 0.4 0.0-2.0 % Neutrophils # (Auto) 4.5 1.6-8.6 10 ^3/uL Lymphocytes # (Auto) 2.5 0.4-5.4 10 ^3/uL Monocytes # (Auto) 0.4 0-1.3 10 ^3/uL Eosinophils # (Auto) 0.3 0-0.8 10 ^3/uL Basophils # (Auto) 0 0-0.2 10 ^3/uL Nucleated Red Blood Cells 0.2 % Sodium Level 140 136-145 mmol/L Potassium Level 3.8 3.5-5.1 mmol/L Chloride Level 101 98-107 mmol/L Carbon Dioxide Level 28 20-31 mmol/L Anion Gap 11 5-15 Blood Urea Nitrogen 12 9-23 mg/dL Creatinine 1.17 H 0.550-1.02 mg/dL Glomerular Filtration Rate Calc 53 >90 mL/min BUN/Creatinine Ratio 10.3 10.0-20.0 Serum Glucose 299 H 74-106 mg/dL Calcium Level 9.5 8.7-10.4 mg/dL Total Bilirubin 0.3 0.2-1.0 mg/dL Aspartate Amino Transferase (AST) 13 13-40 U/L Alanine Aminotransferase (ALT) < 9 7-40 U/L Alkaline Phosphatase 155 H 46-116 U/L Total Protein 6.8 5.7-8.2 g/dL Albumin 4.7 3.2-4.8 g/dL Stool Occult Blood Negative Negative Stool Occult Blood Sample #3 Negative Plan discussed with: Patient Date of Service: Nov 30, 2024 Billing Provider: MONTEZ PETTY MD Common Visit Codes: [id number] INP/OBS CARE (MOD) MONTEZ PETTY MD Nov 30, 2024 17:09
--- NOTE | 2024-11-30 17:58 | DVHPN2 ---
Progress Note - Dictate vital signs Vital Sign Date Time Temp Pulse Resp B/P (MAP) Pulse Ox O2 Delivery O2 Flow Rate FiO2 11/30/24 15:41 79 18 142/73 (96) 95 11/30/24 10:02 98.9 98.9 11/30/24 10:02 Room Air* 0 21 medications Current Medications Medications Dose Ordered Sig/Damon Route Start Time Stop Time Status Last Admin Dose Admin Acetaminophen/ Hydrocodone Bitart 1 tab Q4HP PRN PO 11/30/24 18:00 UNV Temazepam 15 mg QHSP PRN PO 11/30/24 18:00 UNV Ondansetron HCl 4 mg Q4HP PRN IV 11/30/24 18:00 UNV Docusate Sodium 100 mg BIDPRN PRN PO 11/30/24 18:00 UNV Acetaminophen 650 mg Q6HP PRN PO 11/30/24 18:00 UNV Morphine Sulfate 2 mg Q4HPRN PRN IV 11/30/24 18:00 UNV Nitroglycerin 0.4 mg Q5MINP PRN SL 11/30/24 18:00 UNV Morphine Sulfate 2 mg Q30M PRN IV 11/30/24 18:00 UNV Diagnostic Test (Pha) 1 strip ACHS 11/30/24 22:00 UNV Insulin Human Regular HS SC 11/30/24 22:00 UNV Insulin Human Regular AC SC 12/01/24 07:00 UNV Dextrose 50 ml UD PRN IV 11/30/24 18:00 UNV Aspirin 81 mg DAILY PO 12/01/24 10:00 UNV Atorvastatin Calcium 20 mg DAILY PO 12/01/24 10:00 UNV Clopidogrel Bisulfate 75 mg DAILY PO 12/01/24 10:00 UNV Furosemide 40 mg BID PO 11/30/24 22:00 UNV Gabapentin 300 mg Q8HR PO 11/30/24 22:00 UNV Paroxetine HCl 20 mg DAILY PO 12/01/24 10:00 UNV Ranolazine 500 mg BID PO 11/30/24 22:00 UNV Patient Own Medication 1 tab DAILY PO 12/01/24 10:00 UNV Ertapenem 1 gm/ Sodium Chloride 50 ml @ 100 mls/hr DAILY IV 12/01/24 10:00 UNV laboratory and microbiology Laboratory Tests 11/30/24 09:19 Test 11/30/24 09:19 Range/Units Serum Glucose 299 H 74-106 mg/dL TED HUSSEIN NP Nov 30, 2024 17:58
[2024-11-30] MEDS ORDERED: ACETAMINOPHEN 325 MG TAB PO PRN (18:00)
[2024-11-30] MEDS ORDERED: NITROGLYCERIN 0.4 MG SL TAB SL PRN (18:00)
[2024-11-30] MEDS ORDERED: MORPHINE SULFATE INJ 2 MG/ml SYRG IV PRN (18:00)
[2024-11-30] MEDS ORDERED: DEXTROSE (50%) 50ML SYRG IV PRN (18:00)
[2024-11-30] MEDS ORDERED: TEMAZEPAM 15 MG CAP PO PRN (18:00)
[2024-11-30 20:00] VITALS: O2SAT 93
[2024-11-30] MEDS: SODIUM CHLORIDE 0.9% 1,000 ML IV ONE (20:14)
[2024-11-30] MEDS: MORPHINE SULFATE INJ 2 MG/ml SYRG IV PRN (20:37)
[2024-11-30] MEDS: FUROSEMIDE 40 MG TAB PO SCH (21:09)
[2024-11-30] MEDS: ERTAPENEM SOD INJ 1 GM in SODIUM CHL 0.9% 50 ML IV ONE (22:42)
[2024-11-30] MEDS: ACCU-CHEK COMFORT CURVE STRIP VI SCH (22:42)
[2024-11-30] MEDS: ATORVASTATIN 20 MG TAB PO SCH (22:48)
[2024-11-30] MEDS: RANOLAZINE ER 500 MG TAB PO SCH (22:48)
[2024-11-30] MEDS: GABAPENTIN 300 MG CAP PO SCH (22:49)
[2024-11-30] MEDS: InsuLIN REG 1unit/0.01ml Soln (100units/ml) SC SCH (22:50)
[2024-11-30] MEDS: HYDROcodone-ACET 5/325MG TAB PO PRN (22:53)
[2024-12-01 04:00] VITALS: O2SAT 93
[2024-12-01 04:05] LABS: Hematocrit 39.7 % (36.0-46.0); Hemoglobin 13.5 g/dL (12.2-16.2); Mean Corpuscular Hemoglobin 30.2 pg (28.0-32.0); Mean Corpuscular Volume 88.9 fL (80.0-100.0); Nucleated Red Blood Cells % 0.0 %
[2024-12-01 04:16] LABS: Albumin 4.4 g/dL (3.2-4.8); Anion Gap 10 (5-15); BUN/Creatinine Ratio 12.5 (10.0-20.0); Bilirubin, Total 0.3 mg/dL (0.2-1.0); Blood Urea Nitrogen 12 mg/dL (9-23); Calcium 8.9 mg/dL (8.7-10.4); Carbon Dioxide 26 mmol/L (20-31); Chloride 104 mmol/L (98-107); Potassium 3.7 mmol/L (3.5-5.1); Sodium 140 mmol/L (136-145); Total Protein 6.8 g/dL (5.7-8.2)
[2024-12-01 04:25] LABS: Alanine Aminotransferase < 9 U/L (7-40); Alkaline Phosphatase 124 U/L (46-116); Glucose 154 mg/dL (74-106)
[2024-12-01] MEDS: ONDANSETRON HCL 4 MG/2 ML VIAL IV PRN (06:33)
[2024-12-01] MEDS: InsuLIN REG 1unit/0.01ml Soln (100units/ml) SC SCH (06:41)
[2024-12-01] MEDS: PARoxetine 20 MG TAB PO SCH (09:52)
[2024-12-01] MEDS: CLOPIDOGREL BISULFATE 75 MG TAB PO SCH (09:52)
[2024-12-01] MEDS: ASPirin-EC 81 mg tab PO SCH (09:53)
--- NOTE | 2024-12-01 09:55 | DVHINCON2 ---
Date of service: Dec 01, 2024 History of Present Illness HPI Patient is a 59-year-old female who presented with bilateral lower abdominal pain and dark stool. While being admitted, complained of some chest discomfort and Cardiology was called. Patient is known to us from prior visits. During earlier admission in June/2024, the patient did have some chest pain with abnormal troponin and was found to have non-STEMI. Cardiac catheterization at that point revealed multivessel coronary artery disease and the patient was sent to [place] for the suggested CABG surgery. It seems that in [place] they did not do the CABG and the patient had only 1 stent. Later the patient was discharged home from [place]. In the middle of July patient came back with chest discomfort to our facility and with diagnosis of unstable angina was sent back to [place]. In [place], the patient again had another stent. I had an opportunity to talk to the production foreman in [place]. It seems that during the 1st admission to [place], they did put 1 stent in LAD. During the 2nd admission they put another stent in circumflex. It is of note that the patient did have LAD with trifurcation with disease in all of them. Reportedly (as per production foreman in [place]) LAD stent has resulted in pinching of the diagonals. Patient mentions compliance with aspirin/Plavix. Patient also has history of inflammatory bowel disease/ulcerative colitis/Crohn disease. She also has diverticular disease. She repeatedly presents with abdominal pain. Home Meds Active Scripts Metronidazole (Flagyl) 500 Mg Tab, 500 MG PO TID for 14 Days, #42 TAB Prov:TAMI ROOT 10/28/24 Hydrocodone-Acetaminophen (Hydrocodone Bitartrate/AC 5-325 mg) 1 Tab Tab, 1 TAB PO Q8HP PRN for 5 Days, #15 TAB Prov:SEAN ZEPEDA MD 09/30/24 Ranolazine (Ranolazine ER) 500 Mg Tab, 500 MG PO BID for 30 Days, #60 TAB Prov:TED HUSSEIN NP 07/30/24 Baclofen (Baclofen) 10 Mg Tab, 5 MG PO Q8HP PRN for 7 Days, #21 TAB Prov:TED HUSSEIN NP 07/30/24 Isosorbide Mononitrate (Isosorbide Mononitrate Er) 30 Mg Tab, 1 TAB PO DAILY, #30 TAB 5 Refills Prov:TED HUSSEIN Kim [employer] 07/30/24 Lidocaine (LIDODERM 5% TOPICAL PATCH) 1 Patch Ph, 1 PATCH TOP DAILY for 30 Days, #30 PATCH 0 Refills Prov:MIAN ROMO [employer] 06/02/24 Polyethylene Glycol 3350 (Miralax) 17 Gm Pow, 17 GM PO DAILY for 15 Days, #15 POW Prov:DONNAADAN ANNRAGHU Alvarez [employer] 05/03/24 Albuterol Sulfate (Albuterol Sulfate Hfa) 108 Mcg/Act Aer, 108 MCG IN BID PRN for 10 Days, #1 AER 0 Refills Prov:LILI LUNSFORD DO 12/01/22 Reported Medications Docusate Sodium (Docusate Sodium) 100 Mg Cap, 1 CAP PO BID for 30 Days, #60 07/03/24 Simvastatin (Simvastatin) 20 Mg Tab, 1 TAB PO DAILY for 90 Days, #90 07/03/24 Hydrocodone-Acetaminophen (Hydrocodone Bitartrate/AC 10-325 mg) 1 Tab Tab, 1 TAB PO Q6HR PRN for CHRONIC PAIN for 30 Days, #120 07/03/24 Potassium Chloride (Potassium Chloride ER) 10 Meq Tab, 1 TAB PO BID for 90 Days, #180 07/03/24 Paroxetine Hydrochloride (Paroxetine Hydrochloride) 20 Mg Tab, 1 TAB PO DAILY for 90 Days, #90 05/01/24 Tirzepatide (Mounjaro) 7.5 Mg/0.5 Ml Inj, 7.5 MG SC QWEEKLY for 28 Days, #2 10/18/23 Sitagliptin Phosphate (Januvia) 100 Mg Tab, 1 TAB PO DAILY 10/18/23 Clopidogrel Bisulfate (CLOPIDOGREL) 75 Mg Tab, 1 TAB PO DAILY 10/18/23 Furosemide (Furosemide) 40 Mg Tab, 1 TAB PO BID 10/18/23 Atorvastatin Calcium (ATORVASTATIN CALCIUM) 20 Mg Tab, 1 TAB PO DAILY 10/17/23 Cholecalciferol (Vitamin D-3 Super Strengt) 2,000 Unit Tab, 1 TAB PO DAILY 10/17/23 Gabapentin (Gabapentin) 300 Mg Cap, 1 CAP PO Q8HR for NEUROPATHIC PAIN for 30 Days, #90 10/17/23 Aspirin (Aspirin Low Dose) 81 Mg Tab, 1 TAB PO DAILY 10/17/23 Balsalazide Disodium (Balsalazide Disodium) 750 Mg Cap, 3 CAP PO BID for 30 Days, #180 10/17/23 Past Medical History Others Past medical history includes coronary artery disease, diabetes mellitus, 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 She has had kidney stones/hydronephrosis/hydroureter before. Uses a walker for ambulation (secondary to old CVA). Patient was found to have multivessel coronary artery disease (left heart catheterization of July 09, 2024). On July 12 2024, the patient was sent to higher level of care ([place]) for possible CABG surgery. Patient ended up having 1 stent in LAD and CABG was not performed. At next presentation, (still in July 2024) patient was sent back to [place] and had another stent (this time in LCX). Reportedly the patient does have pinching of diagonals. Patient Family History: FH: breast cancer G8 SISTER FH: cancer FH: liver cancer G8 MOTHER, , Cause: Liver cancer Family history: Alzheimer's disease G8 MOTHER, , Cause: Liver cancer, Onset:Unknown Family history: Cardiovascular disease G8 FATHER, , Cause: CHF (congestive heart failure), Onset:Unknown Family history: Diabetes mellitus G8 BROTHER, Onset:Unknown Thyroid disease 19 CHILD Thyroid disease 19 CHILD Alocohol: None Drugs: None Review of Systems Constitutional: No symptom reported Cardiovascular: Chest Pain Gastrointestinal: Abdominal Pain All Other Systems Fourteen point review of system was performed. Relevant findings as per above and as per HPI. Otherwise negative. H&P Exam Vital Signs Vital Signs Date Time Temp Pulse Resp B/P (MAP) Pulse Ox O2 Delivery O2 Flow Rate FiO2 12/01/24 08:51 64 12/01/24 08:00 97.9 15 108/57 (74) 94 97.9 12/01/24 07:45 Room Air* 0 21 General Appeara: Well developed, Obese Head Exam: Normal inspection Eye Exam: bilateral eye PERRL Pulmonary/Respiratory: Normal inspection Cardiovascular/Chest: Normal inspection, Regular rate Peripheral Pulses: 2+ carotid (R), 2+ carotid (L), 2+ femoral (R), 2+ femoral (L) Abdominal Exam: Normal bowel sounds, Soft Neuro/Mental St: Alert, Oriented Appearance: Appropriate appearance Eye contact/ Speech: Cooperative Labs/Xrays Labs Test 12/01/24 06:35 12/01/24 03:35 11/30/24 12:29 11/30/24 08:25 Range/Units POC Glucose 156 H 70-106 mg/dl White Blood Count 8.2 4.4-10.8 10^3/uL Red Blood Count 4.46 4.0-5.20 10^6/uL Hemoglobin 13.5 12.2-16.2 g/dL Hematocrit 39.7 36.0-46.0 % Mean Corpuscular Volume 88.9 80.0-100.0 fL Mean Corpuscular Hemoglobin 30.2 28.0-32.0 pg Mean Corpuscular Hemoglobin Concent 33.9 32.0-36.0 g/dL Red Cell Distribution Width 16.2 H 11.8-14.3 % Platelet Count 226 140-450 10^3/uL Mean Platelet Volume 8.6 6.9-10.8 fL Neutrophils (%) (Auto) 66.3 37.0-80.0 % Lymphocytes (%) (Auto) 25.7 10.0-50.0 % Monocytes (%) (Auto) 3.8 0.0-12.0 % Eosinophils (%) (Auto) 3.5 0.0-7.0 % Basophils (%) (Auto) 0.7 0.0-2.0 % Neutrophils # (Auto) 5.4 1.6-8.6 10 ^3/uL Lymphocytes # (Auto) 2.1 0.4-5.4 10 ^3/uL Monocytes # (Auto) 0.3 0-1.3 10 ^3/uL Eosinophils # (Auto) 0.3 0-0.8 10 ^3/uL Basophils # (Auto) 0.1 0-0.2 10 ^3/uL Nucleated Red Blood Cells 0.0 % Sodium Level 140 136-145 mmol/L Potassium Level 3.7 3.5-5.1 mmol/L Chloride Level 104 98-107 mmol/L Carbon Dioxide Level 26 20-31 mmol/L Anion Gap 10 5-15 Blood Urea Nitrogen 12 9-23 mg/dL Creatinine 0.96 0.550-1.02 mg/dL Glomerular Filtration Rate Calc 67 >90 mL/min BUN/Creatinine Ratio 12.5 10.0-20.0 Serum Glucose 154 H 74-106 mg/dL Calcium Level 8.9 8.7-10.4 mg/dL Total Bilirubin 0.3 0.2-1.0 mg/dL Aspartate Amino Transferase (AST) 15 13-40 U/L Alanine Aminotransferase (ALT) < 9 7-40 U/L Alkaline Phosphatase 124 H 46-116 U/L Total Protein 6.8 5.7-8.2 g/dL Albumin 4.4 3.2-4.8 g/dL Urine Color Yellow Yellow Urine Clarity Turbid H Clear Urine pH 5.5 5.0-9.0 Urine Specific [place] 1.024 1.001-1.035 Urine Protein Trace H Negative Urine Ketones Negative Negative Urine Blood Trace H Negative /uL Urine Nitrite Negative Negative Urine Bilirubin Negative Negative Urine Urobilinogen Normal Negative mg/dL Urine Leukocyte Esterase 2+ Negative /uL Urine RBC 27 0 - 4 /hpf Urine Microscopic WBC 242 H 0-5 /HPF Urine Squamous Epithelial Cells Few <5 /hpf Urine Bacteria None seen None Seen /hpf Urine Glucose 1+ H Normal mg/dL Stool Occult Blood Negative Negative Stool Occult Blood Sample #3 Negative Assessment/Plan Plan Patient is a 59-year-old female who presented with bilateral lower abdominal pain and dark stool. While being admitted, complained of some chest discomfort and Cardiology was called. Patient is known to us from prior visits. During earlier admission in June/2024, the patient did have some chest pain with abnormal troponin and was found to have non-STEMI. Cardiac catheterization at that point revealed multivessel coronary artery disease and the patient was sent to [place] for the suggested CABG surgery. It seems that in [place] they did not do the CABG and the patient had only 1 stent. Later the patient was discharged home from [place]. In the middle of July patient came back with chest discomfort to our facility and with diagnosis of unstable angina was sent back to [place]. In [place], the patient again had another stent. I had an opportunity to talk to the production foreman in [place]. It seems that during the 1st admission to [place], they did put 1 stent in LAD. During the 2nd admission they put another stent in circumflex. It is of note that the patient did have LAD with trifurcation with disease in all of them. Reportedly (as per production foreman in [place]) LAD stent has resulted in pinching of the diagonals. Patient mentions compliance with aspirin/Plavix. Patient also has history of inflammatory bowel disease/ulcerative colitis/Crohn disease. She also has diverticular disease. She repeatedly presents with abdominal pain. Not in acute distress. No JVD. Mucosa is pink and dry. No carotid bruit. Lungs are clear to auscultation. Not using accessory muscles of breathing. Cardiac: Regular, no thrills/gallop. Abdomen is soft. Lower abdominal tenderness can be elicited. There is no rebound. Bowel sound is positive There was no gross mass/hepatomegaly. Extremities do not reveal edema. Dorsalis pedis is 2+ bilateral. 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 She has had kidney stones/hydronephrosis/hydroureter before. Uses a walker for ambulation (s econdary to old CVA). Patient was found to have multivessel coronary artery disease (left heart catheterization of July 09, 2024). On July 12 2024, the patient was sent to higher level of care ([place]) for possible CABG surgery. Patient ended up having 1 stent in LAD and CABG was not performed. At next presentation, (still in July 2024) patient was sent back to [place] and had another stent (this time in LCX). Reportedly the patient does have pinching of diagonals. Echocardiogram of December 16, 2022 (performed in [facility]) revealed ejection fraction of 60%, mild TR and right ventricular systolic pr essure of 27 mm Hg. Echocardiogram of October 18, 2023 reported ejection fraction 55-60%, mild MR/TR and right ventricular systolic pressure of 25 mm Echocardiogram of May 05, 2024 revealed ejection fraction of 50-55%, normal diastolic, trace MR/TR and right ventricular systolic pressure of 28 mm Hg Echocardiogram of July 05, 2024 had revealed ejection fraction of 40%, trace MR /TR and right ventricular systolic pressure of 30 mm Hg Echocardiogram of July 29, 2024 revealed ejection fraction of 50-55%, no wall motion abnormality, trace mitral regurgitation, no tricuspid regurgitation. As there was no good tricuspid regurgitation jet, right ventricular systolic pressure could not be estimated Echocardiogram of November 12, 2024 revealed: LVEF of 60%, no wall motion abnormality. Trace mitral/tricuspid regurgitation. Right ventricular systolic pressure of 28 mm Hg Nuclear stress test of January 03, 2022 (performed as outpatient) revealed ejection fraction of 80% and no evidence for ischemia/scar. Left heart catheterization of July 09 2024 had revealed triple-vessel coronary artery disease Hemoglobin: 14.1 - 13.5 White blood cell: 7.7 - 8.2 Creatinine: 1.17 - 0.96 Potassium: 3.8 - 3.7 Stool occult blood was negative Abdomen and pelvis CT scan revealed: IMPRESSION: 1. Left renal nephrolithiasis without hydronephrosis. 2. Moderate to large colonic stool burden. Tele reveals sinus rhythm Patient is a 59-year-old female who presents with abdominal pain. GI bleeding is ruled out. Did have atypical chest discomfort. Does have history of coronary artery disease. Has had repeated ischemic workups recently. Is on dual antiplatelet therapy. Acute coronary syndrome is not considered at this point. Did have non-STEMI in early July. Was sent to [place] for possible CABG as she was found to have multivessel coronary artery disease. Instead of CABG the patient was given 1 stent (in LAD which resulted in pinching of diagonals). During the next presentation, (still in July 2024) the patient was sent back to [place] and ended up having another stent, this time in LCX. To continue aspirin/Plavix. Patient was counseled to be compliant with medication and followups. Chest pain, atypical Coronary artery disease Triple-vessel coronary artery disease Status post PCI (drug-eluting stent deployment of LAD and LCX).. Abdominal pain History of old CVA with left hemiparesis History of Crohn disease/ulcerative colitis Inflammatory Bowel Disease Constipation Hyperlipidemia Status post carotid endarterectomy Diverticular disease, history of Noncompliance with medication and followups Renal Calculi Uterine Leiomyoma Left anterior abdominal wall soft tissue mass/neoplasm Cardiac suggestion for management: Manage in tele Follow-up electrolytes and kidney function tests and correct abnormalities. Keep potassium above 4 and magnesium above 2 Imdur, long-actin mg daily Ranolazine: 500 mg p.o. b.i.d. Diltiazem-ER: 120 mg daily Serial Trop Continue ASA/Plavix Consider GI and Urology evaluation Lifestyle and risk factor modification is advised A total of 75 minutes was spent reviewing the patient record, examining the patient, making a diagnostic and therapeutic plan, discussing this plan with medical personnel, following up on diagnostic studies and following the patient for clinical stability excluding any and all procedures. At least 50% of this time was spent in direct, [id number] contact. Thank you for allowing me to participate in this patient's care. Further recommendations will depend on patient's clinical course. Please do not hesitate to contact me if you have any questions or concerns. This medical document was created using electronic medical record system with [employer] computerized dictation system. Although this document has been carefully reviewed, there may still be some phonetic and typographical errors. These areas are purely typographical due to the imperfection of the software programs, and do not reflect any compromise in the patient's medical care Plan discussed with: Patient, Other (nurse) BALTAZAR SOMMERS MD Dec 01, 2024 09:55
[2024-12-01] MEDS ORDERED: PATIENTS OWN MEDICATION (Simvastatin 1 TAB) PO SCH (10:00)
[2024-12-01] MEDS: ERTAPENEM SOD INJ 1 GM in SODIUM CHL 0.9% 50 ML IV SCH (10:00)
--- NOTE | 2024-12-01 13:50 | DVHPN2 ---
Progress Note - Dictate Date Seen: Dec 01, 2024 Medical Necessity Reason Pt with a Central, PICC or Fol: No vital signs Vital Sign Date Time Temp Pulse Resp B/P (MAP) Pulse Ox O2 Delivery O2 Flow Rate FiO2 12/01/24 10:31 73 13 102/56 12/01/24 08:00 97.9 94 97.9 12/01/24 07:45 Room Air* 0 21 Total Intake and Output 11/30/24 11/30/24 12/01/24 15:00 23:00 07:00 Intake Total 1050 ml Balance 1050 ml medications Current Medications Medications Dose Ordered Sig/Damon Route Start Time Stop Time Status Last Admin Dose Admin Acetaminophen/ Hydrocodone Bitart 1 tab Q4HP PRN PO 11/30/24 18:00 12/01/24 04:19 1 TAB Temazepam 15 mg QHSP PRN PO 11/30/24 18:00 Ondansetron HCl 4 mg Q4HP PRN IV 11/30/24 18:00 12/01/24 06:33 4 MG Docusate Sodium 100 mg BIDPRN PRN PO 11/30/24 18:00 Acetaminophen 650 mg Q6HP PRN PO 11/30/24 18:00 Morphine Sulfate 2 mg Q4HPRN PRN IV 11/30/24 18:00 12/01/24 10:31 2 MG Nitroglycerin 0.4 mg Q5MINP PRN SL 11/30/24 18:00 Morphine Sulfate 2 mg Q30M PRN IV 11/30/24 18:00 Diagnostic Test (Pha) 1 strip ACHS 11/30/24 22:00 12/01/24 06:37 1 STRIP Insulin Human Regular HS SC 11/30/24 22:00 11/30/24 22:50 4 UNITS Insulin Human Regular AC SC 12/01/24 07:00 12/01/24 06:41 2 UNITS Dextrose 50 ml UD PRN IV 11/30/24 18:00 Aspirin 81 mg DAILY PO 12/01/24 10:00 12/01/24 09:53 81 MG Atorvastatin Calcium 20 mg HS PO 11/30/24 22:00 11/30/24 22:48 20 MG Clopidogrel Bisulfate 75 mg DAILY PO 12/01/24 10:00 12/01/24 09:52 75 MG Furosemide 40 mg BIDD PO 11/30/24 18:18 12/01/24 06:20 40 MG Gabapentin 300 mg Q8HR PO 11/30/24 22:00 12/01/24 06:20 300 MG Paroxetine HCl 20 mg DAILY PO 12/01/24 10:00 12/01/24 09:52 20 MG Ranolazine 500 mg BID PO 11/30/24 22:00 12/01/24 09:52 500 MG Ertapenem 1 gm/ Sodium Chloride 50 ml @ 100 mls/hr DAILY IV 12/01/24 10:00 objective General Appearance: alert, no distress HEENT: EOMI, PERRLA, normal external inspect of ears, no icterus, no nasal drainage Neck: no carotid bruit, no jugular venous distention (JVD), no lymphadenopathy Chest: normal thorax Respiratory: clear to auscultation, normal air movement Cardiovascular: regular rate and rhythm, no diastolic murmur, no jugular venous distention (JVD), no rub, no systolic murmur Abdominal: soft, no hepatomegaly, no mass, no splenomegaly, no tenderness Musculoskeletal: no joint tenderness, no swelling Extremities: normal pulses, no calf tenderness, no clubbing, no cyanosis, no edema Skin: no bruising, no jaundice, no rash Neurological: alert, No focal deficit laboratory and microbiology Laboratory Tests 12/01/24 03:35 Test 12/01/24 03:35 Range/Units Serum Glucose 154 H 74-106 mg/dL Problem List - CAD status post stent cardiology consult, monitoring - Abdominal pain r/t UTI and constipation Start cathartics and antibiotics - Obesity Low-fat cardiac/diabetic diet - Acute cystitis with hematuria Monitoring - DM type II with neuropathy Continue gabapentin -History of ESBL in urine Send culture, start Invanz - History of CVA with residual deficits PT therapy as needed Assessment/Plan Subjective Patient is awake and alert. Objective Patient reports having melena. Hemoglobin appears to be stable. Patient has a history of recurrent UTI and history of Crohn's disease. Patient has a history of CVA status post residual deficits. Patient has a history of CAD status post stent x 2. Plan Cardiology consult. Monitor EKG. Send stool for occult blood. GI consult. Monitor daily labs. Continue PPI. Plan discussed with: Patient, Other TED HUSSEIN NP Dec 01, 2024 13:50
--- NOTE | 2024-12-01 20:59 | DVHHP2 ---
Admitting Diagnosis: Abdominal pain History of Present Illness 59 year old female with history of uterine cancer, crhn's. ulcerative colitis is complaining of abdominal pain for one day. Patient states she is also having black stool and has chronic diarrhea. She is on Plavix. While in the emergency department the patient was evaluated by the provider. Patient will be admitted for further evaluation and treatment. I discussed admission with the patient/family and is in agreement to treatment plan. Patient Family History: FH: breast cancer G8 SISTER FH: cancer FH: liver cancer G8 MOTHER, , Cause: Liver cancer Family history: Alzheimer's disease G8 MOTHER, , Cause: Liver cancer, Onset:Unknown Family history: Cardiovascular disease G8 FATHER, , Cause: CHF (congestive heart failure), Onset:Unknown Family history: Diabetes mellitus G8 BROTHER, Onset:Unknown Thyroid disease 19 CHILD Thyroid disease 19 CHILD Allergies: Coded Allergies: Latex (Verified Allergy, Mild, 06/02/24) INCLUDING TAPE, BROWN AND CLEAR TAPE Home Meds Active Scripts Metronidazole (Flagyl) 500 Mg Tab, 500 MG PO TID for 14 Days, #42 TAB Prov:TAMI ROOT PRIMER WATERPROOFING MACHINE OPERATOR 10/28/24 Hydrocodone-Acetaminophen (Hydrocodone Bitartrate/AC 5-325 mg) 1 Tab Tab, 1 TAB PO Q8HP PRN for 5 Days, #15 TAB Prov:SEAN ZEPEDA MD 09/30/24 Ranolazine (Ranolazine ER) 500 Mg Tab, 500 MG PO BID for 30 Days, #60 TAB Prov:TED HUSSEIN NP 07/30/24 Baclofen (Baclofen) 10 Mg Tab, 5 MG PO Q8HP PRN for 7 Days, #21 TAB Prov:TED HUSSEIN NP 07/30/24 Isosorbide Mononitrate (Isosorbide Mononitrate Er) 30 Mg Tab, 1 TAB PO DAILY, #30 TAB 5 Refills Prov:TED HUSSEIN NP 07/30/24 Lidocaine (LIDODERM 5% TOPICAL PATCH) 1 Patch Ph, 1 PATCH TOP DAILY for 30 Days, #30 PATCH 0 Refills Prov:MIAN ROMO NP 06/02/24 Polyethylene Glycol 3350 (Miralax) 17 Gm Pow, 17 GM PO DAILY for 15 Days, #15 POW Prov:TED HUSSEIN NP 05/03/24 Albuterol Sulfate (Albuterol Sulfate Hfa) 108 Mcg/Act Aer, 108 MCG IN BID PRN for 10 Days, #1 AER 0 Refills Prov:LILI LUNSFORD DO 12/01/22 Reported Medications Docusate Sodium (Docusate Sodium) 100 Mg Cap, 1 CAP PO BID for 30 Days, #60 07/03/24 Simvastatin (Simvastatin) 20 Mg Tab, 1 TAB PO DAILY for 90 Days, #90 07/03/24 Hydrocodone-Acetaminophen (Hydrocodone Bitartrate/AC 10-325 mg) 1 Tab Tab, 1 TAB PO Q6HR PRN for CHRONIC PAIN for 30 Days, #120 07/03/24 Potassium Chloride (Potassium Chloride ER) 10 Meq Tab, 1 TAB PO BID for 90 Days, #180 07/03/24 Paroxetine Hydrochloride (Paroxetine Hydrochloride) 20 Mg Tab, 1 TAB PO DAILY for 90 Days, #90 05/01/24 Tirzepatide (Mounjaro) 7.5 Mg/0.5 Ml Inj, 7.5 MG SC QWEEKLY for 28 Days, #2 10/18/23 Sitagliptin Phosphate (Januvia) 100 Mg Tab, 1 TAB PO DAILY 10/18/23 Clopidogrel Bisulfate (CLOPIDOGREL) 75 Mg Tab, 1 TAB PO DAILY 10/18/23 Furosemide (Furosemide) 40 Mg Tab, 1 TAB PO BID 10/18/23 Atorvastatin Calcium (ATORVASTATIN CALCIUM) 20 Mg Tab, 1 TAB PO DAILY 10/17/23 Cholecalciferol (Vitamin D-3 Super Strengt) 2,000 Unit Tab, 1 TAB PO DAILY 10/17/23 Gabapentin (Gabapentin) 300 Mg Cap, 1 CAP PO Q8HR for NEUROPATHIC PAIN for 30 Days, #90 10/17/23 Aspirin (Aspirin Low Dose) 81 Mg Tab, 1 TAB PO DAILY 10/17/23 Balsalazide Disodium (Balsalazide Disodium) 750 Mg Cap, 3 CAP PO BID for 30 Da ys, #180 10/17/23 Current Medications Current Medications Medications (Trade) Dose Ordered Sig/Damon Route PRN Reason Start Time Stop Time Status Last Admin Diagnostic Test (Pha) (Accu-Chek Comfort Curve T) 1 strip ACHS 11/30/24 22:00 12/01/24 06:37 Insulin Human Regular (InsuLIN R) HS SC 11/30/24 22:00 11/30/24 22:50 Insulin Human Regular (InsuLIN R) AC SC 12/01/24 07:00 12/01/24 06:41 Aspirin (Ecotrin Enteric Coated Tablet) 81 mg DAILY PO 12/01/24 10:00 12/01/24 09:53 Atorvastatin Calcium (Lipitor) 20 mg HS PO 11/30/24 22:00 11/30/24 22:48 Clopidogrel Bisulfate (Plavix) 75 mg DAILY PO 12/01/24 10:00 12/01/24 09:52 Gabapentin (Neurontin Capsule) 300 mg Q8HR PO 11/30/24 22:00 12/01/24 06:20 Paroxetine HCl (Paxil Tablet) 20 mg DAILY PO 12/01/24 10:00 12/01/24 09:52 Ranolazine (Ranexa ER) 500 mg BID PO 11/30/24 22:00 12/01/24 09:52 Patient Own Medication 1 tab DAILY PO 12/01/24 10:00 11/30/24 18:17 DC Ertapenem 1 gm/ Sodium Chloride 50 ml @ 100 mls/hr DAILY IV 12/01/24 10:00 Review of Systems Abdominal pain Diarrhea Vital Signs Vital Signs Date Time Temp Pulse Resp B/P (MAP) Pulse Ox O2 Delivery O2 Flow Rate FiO2 12/01/24 19:58 81 16 136/76 12/01/24 19:54 98.8 95 98.8 12/01/24 07:45 Room Air* 0 21 Physical Exam General Appearance: alert, no distress HEENT: EOMI, PERRLA, normal external inspect of ears, no icterus, no nasal drainage Neck: no carotid bruit, no jugular venous distention (JVD), no lymphadenopathy Chest: normal thorax Respiratory: clear to auscultation, normal air movement Cardiovascular: regular rate and rhythm, no diastolic murmur, no jugular venous distention (JVD), no rub, no systolic murmur Abdominal: soft, no hepatomegaly, no mass, no splenomegaly, no tenderness Musculoskeletal: no joint tenderness, no swelling Extremities: normal pulses, no calf tenderness, no clubbing, no cyanosis, no edema Skin: no bruising, no jaundice, no rash Neurological: alert, No focal deficit SEPSIS Sepsis Screen Date sepsis recognized/suspect: Dec 01, 2024 Time Sepsis recognized/suspect: 0400 Recent Procedure: No On Antibiotic Therapy: Yes Respiratory Rate >20: No Heart Rate >90: No Temp<36 C (96.8 F) or >38.3 C: No SBP <90 or MAP <65 mmHG: No New Acute Mental Status Change: No Is the patient on CPAP, BIPAP,: No Physician Orders Ct Ab Pel Wo Con-No Oral Or Iv (11/30/24 08:20) Admit (11/30/24 17:49) Code Status (11/30/24 17:49) 2 Gm Sodium Diet (11/30/24 Dinner) Oxygen Per Hour (11/30/24 17:49) Hydrocodone-Acet 5/325mg Tab ([place] 5/32 (11/30/24 18:00) Temazepam (Restoril) (11/30/24 18:00) Ondansetron Hcl (Zofran) (11/30/24 18:00) Docusate Sodium Capsule (Colace Capsule) (11/30/24 18:00) Condition: Fair (11/30/24 17:49) Acetaminophen Tablet (Tylenol Tablet) (11/30/24 18:00) Morphine Sulfate Injection (11/30/24 18:00) Sequential Compression Device (11/30/24 ) *Consult Dr. Gonzalez Sabillon (11/30/24 17:49) Nitroglycerin Sublingual (Ntrostat Subli (11/30/24 18:00) Morphine Sulfate Injection (11/30/24 18:00) Stat Ekg For Chest Pain (11/30/24 17:49) Notify Md Of Changes From Base (11/30/24 17:49) Deburr Technician For 24 Hours (11/30/24 17:49) Emergency Dysrhythmia Protocol (11/30/24 17:49) Rhythm Strips Once Every Shift (11/30/24 17:49) Oxygen By Nasal Cannula (11/30/24 17:49) Glucose Blood (Accu-Chek Comfort Curve T (11/30/24 22:00) Insulin R (Human) (Insulin R) (11/30/24 22:00) Insulin R (Human) (Insulin R) (12/01/24 07:00) Dextrose 50% Syringe (11/30/24 18:00) Cardiac Diet-2gna,Lofat,Lochol (11/30/24 Dinner) Aspirin Enteric Coated Tablet (Ecotrin E (12/01/24 10:00) Clopidogrel Bisulfate (Plavix) (12/01/24 10:00) Furosemide Tablet (Lasix Tablet) (11/30/24 18:18) Gabapentin Capsule (Neurontin Capsule) (11/30/24 22:00) Paroxetine Tablet (Paxil Tablet) (12/01/24 10:00) Ranolazine (Ranexa Er) (11/30/24 22:00) Ertapenem Sod Inj (Invanz) (12/01/24 10:00) Atorvastatin (Lipitor) (11/30/24 22:00) * Gi Dvh Manager Chemical (12/01/24 13:49) Stool Occult Blood (12/01/24 13:49) Troponin-I Hs (12/01/24 18:34) Vital Signs Date Time Temp Pulse Resp B/P (MAP) Pulse Ox O2 Delivery O2 Flow Rate FiO2 12/01/24 19:58 81 16 136/76 12/01/24 19:54 98.8 81 16 136/76 (96) 95 98.8 12/01/24 10:31 73 13 102/56 12/01/24 08:51 64 12/01/24 08:00 97.9 73 15 108/57 (74) 94 97.9 12/01/24 07:45 Room Air* 0 21 12/01/24 07:05 67 15 107/58 12/01/24 06:33 71 16 121/86 12/01/24 06:20 114/67 12/01/24 06:00 58 9 114/67 (83) 94 12/01/24 04:00 98.3 66 12 124/70 (88) 93 98.3 12/01/24 04:00 93 Room Air* 0 21 12/01/24 04:00 58 12/01/24 02:03 75 18 134/77 11/30/24 21:09 102/72 11/30/24 21:08 102/72 (82) 11/30/24 21:07 68 16 102/72 11/30/24 20:37 78 16 111/64 11/30/24 20:31 78 16 111/64 11/30/24 20:00 98.2 78 16 111/64 (80) 93 98.2 11/30/24 20:00 93 Room Air* 0 21 11/30/24 15:41 79 18 142/73 (96) 95 11/30/24 13:00 79 18 142/73 11/30/24 10:02 98.9 73 17 114/73 (87) 95 98.9 11/30/24 10:02 73 17 95 Room Air* 0 21 11/30/24 08:05 98.2 78 18 146/80 94 98.2 Laboratory Tests Test 11/30/24 09:19 12/01/24 03:35 White Blood Count 7.7 10^3/uL (4.4-10.8) 8.2 10^3/uL (4.4-10.8) Medications Medications Dose Ordered Sig/Damon Route Start Time Stop Time Status Last Admin Dose Admin Aspirin 81 mg DAILY PO 12/01/24 10:00 12/01/24 09:53 Clopidogrel Bisulfate 75 mg DAILY PO 12/01/24 10:00 12/01/24 09:52 Paroxetine HCl 20 mg DAILY PO 12/01/24 10:00 12/01/24 09:52 Results Labs Test 12/01/24 20:35 12/01/24 06:35 12/01/24 03:35 11/30/24 12:29 Range/Units POC Glucose 156 H 70-106 mg/dl White Blood Count 8.2 4.4-10.8 10^3/uL Red Blood Count 4.46 4.0-5.20 10^6/uL Hemoglobin 13.5 12.2-16.2 g/dL Hematocrit 39.7 36.0-46.0 % Mean Corpuscular Volume 88.9 80.0-100.0 fL Mean Corpuscular Hemoglobin 30.2 28.0-32.0 pg Mean Corpuscular Hemoglobin Concent 33.9 32.0-36.0 g/dL Red Cell Distribution Width 16.2 H 11.8-14.3 % Platelet Count 226 140-450 10^3/uL Mean Platelet Volume 8.6 6.9-10.8 fL Neutrophils (%) (Auto) 66.3 37.0-80.0 % Lymphocytes (%) (Auto) 25.7 10.0-50.0 % Monocytes (%) (Auto) 3.8 0.0-12.0 % Eosinophils (%) (Auto) 3.5 0.0-7.0 % Basophils (%) (Auto) 0.7 0.0-2.0 % Neutrophils # (Auto) 5.4 1.6-8.6 10 ^3/uL Lymphocytes # (Auto) 2.1 0.4-5.4 10 ^3/uL Monocytes # (Auto) 0.3 0-1.3 10 ^3/uL Eosinophils # (Auto) 0.3 0-0.8 10 ^3/uL Basophils # (Auto) 0.1 0-0.2 10 ^3/uL Nucleated Red Blood Cells 0.0 % Sodium Level 140 136-145 mmol/L Potassium Level 3.7 3.5-5.1 mmol/L Chloride Level 104 98-107 mmol/L Carbon Dioxide Level 26 20-31 mmol/L Anion Gap 10 5-15 Blood Urea Nitrogen 12 9-23 mg/dL Creatinine 0.96 0.550-1.02 mg/dL Glomerular Filtration Rate Calc 67 >90 mL/min BUN/Creatinine Ratio 12.5 10.0-20.0 Serum Glucose 154 H 74-106 mg/dL Calcium Level 8.9 8.7-10.4 mg/dL Total Bilirubin 0.3 0.2-1.0 mg/dL Aspartate Amino Transferase (AST) 15 13-40 U/L Alanine Aminotransferase (ALT) < 9 7-40 U/L Alkaline Phosphatase 124 H 46-116 U/L Total Protein 6.8 5.7-8.2 g/dL Albumin 4.4 3.2-4.8 g/dL Urine Color Yellow Yellow Urine Clarity Turbid H Clear Urine pH 5.5 5.0-9.0 Urine Specific [place] 1.024 1.001-1.035 Urine Protein Trace H Negative Urine Ketones Negative Negative Urine Blood Trace H Negative /uL Urine Nitrite Negative Negative Urine Bilirubin Negative Negative Urine Urobilinogen Normal Negative mg/dL Urine Leukocyte Esterase 2+ Negative /uL Urine RBC 27 0 - 4 /hpf Urine Microscopic WBC 242 H 0-5 /HPF Urine Squamous Epithelial Cells Few <5 /hpf Urine Bacteria None seen None Seen /hpf Urine Glucose 1+ H Normal mg/dL Test 11/30/24 08:25 Range/Units Stool Occult Blood Negative Negative Stool Occult Blood Sample #3 Negative Admitting Diagnosis: - CAD status post stent cardiology consult, monitoring - Abdominal pain r/t UTI and constipation Start cathartics and antibiotics - Obesity Low-fat cardiac/diabetic diet - Acute cystitis with hematuria Monitoring - DM type II with neuropathy Continue gabapentin -History of ESBL in urine Send culture, start Invanz - History of CVA with residual deficits PT therapy as needed Plan discussed with: Patient, Other TED HUSSEIN NP Dec 01, 2024 20:59
[2024-12-02] VITALS (8 sets, daily range): BP systolic 101–175; BP diastolic 59–82; PULSE 60–80; RESP 16–18; TEMP 98–98.6; O2SAT 92–98
[2024-12-02] MEDS: DOCUSATE SOD 100 MG CAP PO PRN (02:01)
--- NOTE | 2024-12-02 07:45 | DVHPN2 ---
Progress Note - Dictate Date Seen: Dec 02, 2024 Medical Necessity Reason Pt with a Central, PICC or Fol: No vital signs Vital Sign Date Time Temp Pulse Resp B/P (MAP) Pulse Ox O2 Delivery O2 Flow Rate FiO2 12/02/24 06:41 134/72 12/02/24 06:17 88 18 12/02/24 05:00 98.1 95 98.1 12/02/24 01:34 Room Air* 0 21 Total Intake and Output 12/01/24 12/01/24 12/02/24 15:00 23:00 07:00 Intake Total 100 ml Output Total 450 ml Balance -350 ml medications Current Medications Medications Dose Ordered Sig/Damon Route Start Time Stop Time Status Last Admin Dose Admin Acetaminophen/ Hydrocodone Bitart 1 tab Q4HP PRN PO 11/30/24 18:00 12/01/24 04:19 1 TAB Temazepam 15 mg QHSP PRN PO 11/30/24 18:00 Ondansetron HCl 4 mg Q4HP PRN IV 11/30/24 18:00 12/01/24 19:58 4 MG Docusate Sodium 100 mg BIDPRN PRN PO 11/30/24 18:00 12/02/24 02:01 100 MG Acetaminophen 650 mg Q6HP PRN PO 11/30/24 18:00 Morphine Sulfate 2 mg Q4HPRN PRN IV 11/30/24 18:00 12/02/24 05:47 2 MG Nitroglycerin 0.4 mg Q5MINP PRN SL 11/30/24 18:00 Morphine Sulfate 2 mg Q30M PRN IV 11/30/24 18:00 Diagnostic Test (Pha) 1 strip ACHS 11/30/24 22:00 12/01/24 05:30 1 STRIP Insulin Human Regular HS SC 11/30/24 22:00 11/30/24 22:50 4 UNITS Insulin Human Regular AC SC 12/01/24 07:00 12/02/24 05:39 6 UNITS Dextrose 50 ml UD PRN IV 11/30/24 18:00 Aspirin 81 mg DAILY PO 12/01/24 10:00 12/01/24 09:53 81 MG Atorvastatin Calcium 20 mg HS PO 11/30/24 22:00 11/30/24 22:48 20 MG Clopidogrel Bisulfate 75 mg DAILY PO 12/01/24 10:00 12/01/24 09:52 75 MG Furosemide 40 mg BIDD PO 11/30/24 18:18 12/02/24 06:41 40 MG Gabapentin 300 mg Q8HR PO 11/30/24 22:00 12/02/24 06:41 300 MG Paroxetine HCl 20 mg DAILY PO 12/01/24 10:00 12/01/24 09:52 20 MG Ranolazine 500 mg BID PO 11/30/24 22:00 12/01/24 09:52 500 MG Ertapenem 1 gm/ Sodium Chloride 50 ml @ 100 mls/hr DAILY IV 12/01/24 10:00 laboratory and microbiology Laboratory Tests 12/01/24 03:35 Test 12/01/24 03:35 Range/Units Serum Glucose 154 H 74-106 mg/dL Assessment/Plan Patient is a 59-year-old female who presented with bilateral lower abdominal pain and dark stool. While being admitted, complained of some chest discomfort and Cardiology was called. Patient is known to us from prior visits. During earlier admission in June/2024, the patient did have some chest pain with abnormal troponin and was found to have non-STEMI. Cardiac catheterization at that point revealed multivessel coronary artery disease and the patient was sent to [facility] for the suggested CABG surgery. It seems that in [facility] they did not do the CABG and the patient had only 1 stent. Later the patient was discharged home from [facility]. In the middle of July patient came back with chest discomfort to our facility and with diagnosis of unstable angina was sent back to [facility]. In [facility], the patient again had another stent. I had an opportunity to talk to the artist representative in [facility]. It seems that during the 1st admission to [facility], they did put 1 stent in LAD. During the 2nd admission they put another stent in circumflex. It is of note that the patient did have LAD with trifurcation with disease in all of them. Reportedly (as per artist representative in [facility]) LAD stent has resulted in pinching of the diagonals. Patient mentions compliance with aspirin/Plavix. Patient also has history of inflammatory bowel disease/ulcerative colitis/Crohn disease. She also has diverticular disease. She repeatedly presents with abdominal pain. Not in acute distress. No JVD. Mucosa is pink and dry. No carotid bruit. Lungs are clear to auscultation. Not using accessory muscles of breathing. Cardiac: Regular, no thrills/gallop. Abdomen is soft. Lower abdominal tenderness can be elicited. There is no rebound. Bowel sound is positive There was no gross mass/hepatomegaly. Extremities do not reveal edema. Dorsalis pedis is 2+ bilateral. 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 She has had kidney stones/hydronephrosis/hydroureter before. Uses a walker for ambulation (secondary to old CVA). Patient was found to have multivessel coronary artery disease (left heart catheterization of July 09, 2024). On July 12 2024, the patient was sent to higher level of care ([facility]) for possible CABG surgery. Patient ended up having 1 stent in LAD and CABG was not performed. At next presentation, (still in July 2024) patient was sent back to [facility] and had another stent (this time in LCX). Reportedly the patient does have pinching of diagonals. Echocardiogram of December 16, 2022 (performed in [facility]) revealed ejection fraction of 60%, mild TR and right ventricular systolic pressure of 27 mm Hg. Echocardiogram of October 18, 2023 reported ejection fraction 55-60%, mild MR/TR and right ventricular systolic pressure of 25 mm Echocardiogram of May 05, 2024 revealed ejection fraction of 50-55%, normal diastolic, trace MR/TR and right ventricular systolic pressure of 28 mm Hg Echocardiogram of July 05, 2024 had revealed ejection fraction of 40%, trace MR/TR and right ventricular systolic pressure of 30 mm Hg Echocardiogram of July 29, 2024 revealed ejection fraction of 50-55%, no wall motion abnormality, trace mitral regurgitation, no tricuspid regurgitation. As there was no good tricuspid regurgitation jet, right ventricular systolic pressure could not be estimated Echocardiogram of November 12, 2024 revealed: LVEF of 60%, no wall motion abnormality. Trace mitral/tricuspid regurgitation. Right ventricular systolic pressure of 28 mm Hg Nuclear stress test of January 03, 2022 (performed as outpatient) revealed ejection fraction of 80% and no evidence for ischemia/scar. Left heart catheterization of July 09 2024 had revealed triple-vessel coronary artery disease Hemoglobin: 14.1 - 13.5 White blood cell: 7.7 - 8.2 Creatinine: 1.17 - 0.96 Potassium: 3.8 - 3.7 Trop (high sensitive): <3 - <3 - <3 Stool occult blood was negative Abdomen and pelvis CT scan revealed: IMPRESSION: 1. Left renal nephrolithiasis without hydronephrosis. 2. Moderate to large colonic stool burden. Tele reveals sinus rhythm Patient is a 59-year-old female who presents with abdominal pain. GI bleeding is ruled out. Did have atypical chest discomfort. Does have history of coronary artery disease. Has had repeated ischemic workups recently. Is on dual antiplatelet therapy. Acute coronary syndrome is not considered at this point. Did have non-STEMI in early July. Was sent to [facility] for possible CABG as she was found to have multivessel coronary artery disease. Instead of CABG the patient was given 1 stent (in LAD which resulted in pinching of diagonals). During the next presentation, (still in July 2024) the patient was sent back to [facility] and ended up having another stent, this time in LCX. ACS is not considered at this point. To continue aspirin/Plavix. Patient was counseled to be compliant with medication and followups. Chest pain, atypical Coronary artery disease Triple-vessel coronary artery disease Status post PCI (drug-eluting stent deployment of LAD and LCX).. Abdominal pain History of old CVA with left hemiparesis History of Crohn disease/ulcerative colitis Inflammatory Bowel Disease Constipation Hyperlipidemia Status post carotid endarterectomy Diverticular disease, history of Noncompliance with medication and followups Renal Calculi Uterine Leiomyoma Left anterior abdominal wall soft tissue mass/neoplasm Cardiac suggestion for management: Manage in tele Follow-up electrolytes and kidney function tests and correct abnormalities. Keep potassium above 4 and magnesium above 2 Imdur, long-actin mg daily Ranolazine: 500 mg p.o. b.i.d. Diltiazem-ER: 120 mg daily Continue ASA/Plavix Consider GI and Urology evaluation Lifestyle and risk factor modification is advised A total of 75 minutes was spent reviewing the patient record, examining the patient, making a diagnostic and therapeutic plan, discussing this plan with medical personnel, following up on diagnostic studies and following the patient for clinical stability excluding any and all procedures. At least 50% of this time was spent in direct, [id number] contact. Thank you for allowing me to participate in this patient's care. Further recommendations will depend on patient's clinical course. Please do not hesitate to contact me if you have any questions or concerns. This medical document was created using electronic medical record system with [employer] computerized dictation system. Although this document has been carefully reviewed, there may still be some phonetic and typographical errors. These areas are purely typographical due to the imperfection of the software programs, and do not reflect any compromise in the patient's medical care Plan discussed with: Other (nurse) BALTAZAR SOMMERS MD Dec 02, 2024 07:45
[2024-12-02] MEDS: dilTIAZem 120MG ER CAP PO SCH (10:00)
[2024-12-02] MEDS: ISOSORBIDE MONONITRATE ER 60 MG TAB PO SCH (10:00)
--- NOTE | 2024-12-02 11:42 | DVHPN2 ---
Progress Note - Dictate Date Seen: Dec 02, 2024 Medical Necessity Reason Pt with a Central, PICC or Fol: No vital signs Vital Sign Date Time Temp Pulse Resp B/P (MAP) Pulse Ox O2 Delivery O2 Flow Rate FiO2 12/02/24 10:20 69 18 120/70 12/02/24 09:00 98.1 95 98.1 12/02/24 08:00 Room Air* 0 21 Total Intake and Output 12/01/24 12/01/24 12/02/24 15:00 23:00 07:00 Intake Total 100 ml Output Total 450 ml Balance -350 ml medications Current Medications Medications Dose Ordered Sig/Damon Route Start Time Stop Time Status Last Admin Dose Admin Acetaminophen/ Hydrocodone Bitart 1 tab Q4HP PRN PO 11/30/24 18:00 12/01/24 04:19 1 TAB Temazepam 15 mg QHSP PRN PO 11/30/24 18:00 Ondansetron HCl 4 mg Q4HP PRN IV 11/30/24 18:00 12/01/24 19:58 4 MG Docusate Sodium 100 mg BIDPRN PRN PO 11/30/24 18:00 12/02/24 10:19 100 MG Acetaminophen 650 mg Q6HP PRN PO 11/30/24 18:00 Morphine Sulfate 2 mg Q4HPRN PRN IV 11/30/24 18:00 12/02/24 10:20 2 MG Nitroglycerin 0.4 mg Q5MINP PRN SL 11/30/24 18:00 Morphine Sulfate 2 mg Q30M PRN IV 11/30/24 18:00 Diagnostic Test (Pha) 1 strip ACHS 11/30/24 22:00 12/01/24 05:30 1 STRIP Insulin Human Regular HS SC 11/30/24 22:00 11/30/24 22:50 4 UNITS Insulin Human Regular AC SC 12/01/24 07:00 12/02/24 05:39 6 UNITS Dextrose 50 ml UD PRN IV 11/30/24 18:00 Aspirin 81 mg DAILY PO 12/01/24 10:00 12/02/24 10:19 81 MG Atorvastatin Calcium 20 mg HS PO 11/30/24 22:00 11/30/24 22:48 20 MG Clopidogrel Bisulfate 75 mg DAILY PO 12/01/24 10:00 12/02/24 10:19 75 MG Furosemide 40 mg BIDD PO 11/30/24 18:18 12/02/24 06:41 40 MG Gabapentin 300 mg Q8HR PO 11/30/24 22:00 12/02/24 06:41 300 MG Paroxetine HCl 20 mg DAILY PO 12/01/24 10:00 12/02/24 10:19 20 MG Ranolazine 500 mg BID PO 11/30/24 22:00 12/02/24 10:19 500 MG Ertapenem 1 gm/ Sodium Chloride 50 ml @ 100 mls/hr DAILY IV 12/01/24 10:00 12/02/24 10:18 100 MLS/HR Diltiazem HCl 120 mg DAILY PO 12/02/24 10:00 Isosorbide Mononitrate 30 mg DAILY PO 12/02/24 10:00 objective General Appearance: alert, no distress HEENT: EOMI, PERRLA, normal external inspect of ears, no icterus, no nasal drainage Neck: no carotid bruit, no jugular venous distention (JVD), no lymphadenopathy Chest: normal thorax Respiratory: clear to auscultation, normal air movement Cardiovascular: regular rate and rhythm, no diastolic murmur, no jugular venous distention (JVD), no rub, no systolic murmur Abdominal: soft, no hepatomegaly, no mass, no splenomegaly, no tenderness Musculoskeletal: no joint tenderness, no swelling Extremities: normal pulses, no calf tenderness, no clubbing, no cyanosis, no edema Skin: no bruising, no jaundice, no rash Neurological: alert, No focal deficit laboratory and microbiology Laboratory Tests 12/01/24 03:35 Test 12/01/24 03:35 Range/Units Serum Glucose 154 H 74-106 mg/dL Problem List - CAD status post stent cardiology consult, monitoring - Abdominal pain r/t UTI and constipation Start cathartics and antibiotics - Obesity Low-fat cardiac/diabetic diet - Acute cystitis with hematuria Monitoring - DM type II with neuropathy Continue gabapentin -History of ESBL in urine Send culture, start Invanz - History of CVA with residual deficits PT therapy as needed Assessment/Plan Subjective: Patient is awake and alert. Objective: Patient was admitted for complaints of melena. Stool for occult blood is negative. Patient has a history of CAD status post stent x 2. Patient has a history of ESBL in the urine. Ertapenem has been ordered. Plan: Continue current treatment. Hemoglobin is currently stable. Urine culture is pending. Plan discussed with: Patient, Other TED HUSSEIN NP Dec 02, 2024 11:42
--- NOTE | 2024-12-02 14:21 | DVHINCON2 ---
GI Consult Consult Note GI consult note Date of Consultation: 12/02/2024 Chief Complaint: Melena Referring Physician: JOVITA GRAY H&P: 59-year-old female with past medical history of uterine cancer, Crohn's, u lcerative colitis admitted with abdominal pain. Patient has mostly left side and lower abdominal pain for the past four days. Has a feeling of bloated gassy. Patient has nausea no vomiting. Last bowel movement today small amount. Patient feels very constipated. Usually takes Loranger for chronic pain, but does not have history of constipation Was dark in color. Patient was in Mounjaro injections which she has stopped since 2-3 months ago. Status post colonoscopy one year ago at [facility], the patient was diagnosed with ulcerative colitis. Patient is on Plavix Past Medical History: Angina, CAD, Cancer, CHF, CVA, DM, High Lipids, Kidney Stones, Liver, AL, uterine cancer, Crohn's and ulcerative colitis Past Surgical History: Cholecystectomy, hernia repair, PTCA Social History: NO smoking, drinking ETOH and use of illegal drugs. Family History: Noncontributory Review of Systems: Constitutional: no fever, chill, weight loss HEENT: no eye pain, no hearing loss, no oral lesion, no scleral icterus Heart: no chest pain, no chest pressure Lung: no cough, no dyspnea with exertion Abdomen: see HPI Physical exam: General: NAD, AAOX3 Chest: lung fernandez clear to auscultation Heart: RRR, no murmur Abdomen: Moderate generalized tenderness to palpation, mild distention +BS Labs: Labs Test 12/02/24 11:59 12/01/24 20:35 12/01/24 03:35 11/30/24 12:29 Range/Units POC Glucose 159 H 70-106 mg/dl Troponin I High Sensitivity < 3 L </=34 ng/L White Blood Count 8.2 4.4-10.8 10^3/uL Red Blood Count 4.46 4.0-5.20 10^6/uL Hemoglobin 13.5 12.2-16.2 g/dL Hematocrit 39.7 36.0-46.0 % Mean Corpuscular Volume 88.9 80.0-100.0 fL Mean Corpuscular Hemoglobin 30.2 28.0-32.0 pg Mean Corpuscular Hemoglobin Concent 33.9 32.0-36.0 g/dL Red Cell Distribution Width 16.2 H 11.8-14.3 % Platelet Count 226 140-450 10^3/uL Mean Platelet Volume 8.6 6.9-10.8 fL Neutrophils (%) (Auto) 66.3 37.0-80.0 % Lymphocytes (%) (Auto) 25.7 10.0-50.0 % Monocytes (%) (Auto) 3.8 0.0-12.0 % Eosinophils (%) (Auto) 3.5 0.0-7.0 % Basophils (%) (Auto) 0.7 0.0-2.0 % Neutrophils # (Auto) 5.4 1.6-8.6 10 ^3/uL Lymphocytes # (Auto) 2.1 0.4-5.4 10 ^3/uL Monocytes # (Auto) 0.3 0-1.3 10 ^3/uL Eosinophils # (Auto) 0.3 0-0.8 10 ^3/uL Basophils # (Auto) 0.1 0-0.2 10 ^3/uL Nucleated Red Blood Cells 0.0 % Sodium Level 140 136-145 mmol/L Potassium Level 3.7 3.5-5.1 mmol/L Chloride Level 104 98-107 mmol/L Carbon Dioxide Level 26 20-31 mmol/L Anion Gap 10 5-15 Blood Urea Nitrogen 12 9-23 mg/dL Creatinine 0.96 0.550-1.02 mg/dL Glomerular Filtration Rate Calc 67 >90 mL/min BUN/Creatinine Ratio 12.5 10.0-20.0 Serum Glucose 154 H 74-106 mg/dL Calcium Level 8.9 8.7-10.4 mg/dL Total Bilirubin 0.3 0.2-1.0 mg/dL Aspartate Amino Transferase (AST) 15 13-40 U/L Alanine Aminotransferase (ALT) < 9 7-40 U/L Alkaline Phosphatase 124 H 46-116 U/L Total Protein 6.8 5.7-8.2 g/dL Albumin 4.4 3.2-4.8 g/dL Urine Color Yellow Yellow Urine Clarity Turbid H Clear Urine pH 5.5 5.0-9.0 Urine Specific [place] 1.024 1.001-1.035 Urine Protein Trace H Negative Urine Ketones Negative Negative Urine Blood Trace H Negative /uL Urine Nitrite Negative Negative Urine Bilirubin Negative Negative Urine Urobilinogen Normal Negative mg/dL Urine Leukocyte Esterase 2+ Negative /uL Urine RBC 27 0 - 4 /hpf Urine Microscopic WBC 242 H 0-5 /HPF Urine Squamous Epithelial Cells Few <5 /hpf Urine Bacteria None seen None Seen /hpf Urine Glucose 1+ H Normal mg/dL Test 11/30/24 08:25 Range/Units Stool Occult Blood Negative Negative Stool Occult Blood Sample #3 Negative Imaging: CT abdomen pelvis IMPRESSION: 1. Left renal nephrolithiasis without hydronephrosis. 2. Moderate to large colonic stool burden. Assessment: Abdominal pain Constipation Abnormal CT results of abdomen CAD History of CVA History of Crohn's and ulcerative colitis Plan: Discussed with Dr. Bryn Thompson Consider Fleet's enema if no bowel movement with MiraLax Conservative management recommended at this time We will continue to follow patient Thank you for this consult Date of Service: Dec 02, 2024 Billing Provider: YAMILET PATRICK Common Visit Codes: CONSULT ONLY Consultation Codes: [id number] CONSULT <60MIN YAMILET PATRICK Dec 02, 2024 14:21
[2024-12-02] MEDS: POLYETHYLENE GLYCOL 17 GM PWDR PO ONE (17:24)
[2024-12-03 01:00] VITALS: BP_SYST 120; BP_SYST 138; BP_DIAS 63; BP_DIAS 72; PULSE 58; PULSE 72; RESP 16; RESP 19; TEMP 97.2; TEMP 97.3; O2SAT 95; O2SAT 97
[2024-12-03 05:00] VITALS: BP 102/77; PULSE 50; RESP 17; TEMP 97.7; O2SAT 94
[2024-12-03 08:00] VITALS: PULSE 67; PULSE 71; RESP 18; O2SAT 95
[2024-12-03 08:34] VITALS: BP 112/71; PULSE 71; RESP 16; TEMP 97; O2SAT 96
--- NOTE | 2024-12-03 08:43 | DVHPN2 ---
Progress Note - Dictate Date Seen: Dec 03, 2024 Medical Necessity Reason Pt with a Central, PICC or Fol: No vital signs Vital Sign Date Time Temp Pulse Resp B/P (MAP) Pulse Ox O2 Delivery O2 Flow Rate FiO2 12/03/24 08:34 97.0 71 16 112/71 (85) 96 97.0 12/03/24 08:00 Room Air* 0 21 Total Intake and Output 12/02/24 12/02/24 12/03/24 15:00 23:00 07:00 Intake Total 830 ml 500 ml Balance 830 ml 500 ml medications Current Medications Medications Dose Ordered Sig/Damon Route Start Time Stop Time Status Last Admin Dose Admin Acetaminophen/ Hydrocodone Bitart 1 tab Q4HP PRN PO 11/30/24 18:00 12/01/24 04:19 1 TAB Temazepam 15 mg QHSP PRN PO 11/30/24 18:00 Ondansetron HCl 4 mg Q4HP PRN IV 11/30/24 18:00 12/01/24 19:58 4 MG Docusate Sodium 100 mg BIDPRN PRN PO 11/30/24 18:00 12/02/24 10:19 100 MG Acetaminophen 650 mg Q6HP PRN PO 11/30/24 18:00 Morphine Sulfate 2 mg Q4HPRN PRN IV 11/30/24 18:00 12/03/24 05:04 2 MG Nitroglycerin 0.4 mg Q5MINP PRN SL 11/30/24 18:00 Morphine Sulfate 2 mg Q30M PRN IV 11/30/24 18:00 Diagnostic Test (Pha) 1 strip ACHS 11/30/24 22:00 12/03/24 05:57 1 STRIP Insulin Human Regular HS SC 11/30/24 22:00 12/02/24 21:30 4 UNITS Insulin Human Regular AC SC 12/01/24 07:00 12/03/24 06:04 2 UNITS Dextrose 50 ml UD PRN IV 11/30/24 18:00 Aspirin 81 mg DAILY PO 12/01/24 10:00 12/02/24 10:19 81 MG Atorvastatin Calcium 20 mg HS PO 11/30/24 22:00 12/02/24 21:33 20 MG Clopidogrel Bisulfate 75 mg DAILY PO 12/01/24 10:00 12/02/24 10:19 75 MG Furosemide 40 mg BIDD PO 11/30/24 18:18 12/03/24 05:44 40 MG Gabapentin 300 mg Q8HR PO 11/30/24 22:00 12/03/24 05:44 300 MG Paroxetine HCl 20 mg DAILY PO 12/01/24 10:00 12/02/24 10:19 20 MG Ranolazine 500 mg BID PO 11/30/24 22:00 12/02/24 21:33 500 MG Ertapenem 1 gm/ Sodium Chloride 50 ml @ 100 mls/hr DAILY IV 12/01/24 10:00 12/02/24 10:18 100 MLS/HR Diltiazem HCl 120 mg DAILY PO 12/02/24 10:00 Isosorbide Mononitrate 30 mg DAILY PO 12/02/24 10:00 laboratory and microbiology Laboratory Tests 12/01/24 03:35 Test 12/01/24 03:35 Range/Units Serum Glucose 154 H 74-106 mg/dL Assessment/Plan Patient is a 59-year-old female who presented with bilateral lower abdominal pain and dark stool. While being admitted, complained of some chest discomfort and Cardiology was called. Patient is known to us from prior visits. During earlier admission in June/2024, the patient did have some chest pain with abnormal troponin and was found to have non-STEMI. Cardiac catheterization at that point revealed multivessel coronary artery disease and the patient was sent to [place] for the suggested CABG surgery. It seems that in [place] they did not do the CABG and the patient had only 1 stent. Later the patient was discharged home from [place]. In the middle of July patient came back with chest discomfort to our facility and with diagnosis of unstable angina was sent back to [place]. In [place], the patient again had another stent. I had an opportunity to talk to the employee training specialist in [place]. It seems that during the 1st admission to [place], they did put 1 stent in LAD. During the 2nd admission they put another stent in circumflex. It is of note that the patient did have LAD with trifurcation with disease in all of them. Reportedly (as per employee training specialist in [place]) LAD stent has resulted in pinching of the diagonals. Patient mentions compliance with aspirin/Plavix. Patient also has history of inflammatory bowel disease/ulcerative colitis/Crohn disease. She also has diverticular disease. She repeatedly presents with abdominal pain. Not in acute distress. No JVD. Mucosa is pink and dry. No carotid bruit. Lungs are clear to auscultation. Not using accessory muscles of breathing. Cardiac: Regular, no thrills/gallop. Abdomen is soft. Lower abdominal tenderness can be elicited. There is no rebound. Bowel sound is positive There was no gross mass/hepatomegaly. Extremities do not reveal edema. Dorsalis pedis is 2+ bilateral. 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 She has had kidney stones/hydronephrosis/hydroureter before. Uses a walker for ambulation (secondary to old CVA). Patient was found to have multivessel coronary artery disease (left heart catheterization of July 09, 2024). On July 12 2024, the patient was sent to higher level of care ([place]) for possible CABG surgery. Patient ended up having 1 stent in LAD and CABG was not performed. At next presentation, (still in July 2024) patient was sent back to [place] and had another stent (this time in LCX). Reportedly the patient does have pinching of diagonals. Echocardiogram of December 16, 2022 (performed in [facility]) revealed ejection fraction of 60%, mild TR and right ventricular systolic pressure of 27 mm Hg. Echocardiogram of October 18, 2023 reported ejection fraction 55-60%, mild MR/TR and right ventricular systolic pressure of 25 mm Echocardiogram of May 05, 2024 revealed ejection fraction of 50-55%, normal diastolic, trace MR/TR and right ventricular systolic pressure of 28 mm Hg Echocardiogram of July 05, 2024 had revealed ejection fraction of 40%, trace MR/TR and right ventricular systolic pressure of 30 mm Hg Echocardiogram of July 29, 2024 revealed ejection fraction of 50-55%, no wall motion abnormality, trace mitral regurgitation, no tricuspid regurgitation. As there was no good tricuspid regurgitation jet, right ventricular systolic pressure could not be estimated Echocardiogram of November 12, 2024 revealed: LVEF of 60%, no wall motion abnormality. Trace mitral/tricuspid regurgitation. Right ventricular systolic pressure of 28 mm Hg Nuclear stress test of January 03, 2022 (performed as outpatient) revealed ejection fraction of 80% and no evidence for ischemia/scar. Left heart catheterization of July 09 2024 had revealed triple-vessel coronary artery disease Hemoglobin: 14.1 - 13.5 White blood cell: 7.7 - 8.2 Creatinine: 1.17 - 0.96 Potassium: 3.8 - 3.7 Trop (high sensitive): <3 - <3 - <3 Stool occult blood was negative Abdomen and pelvis CT scan revealed: IMPRESSION: 1. Left renal nephrolithiasis without hydronephrosis. 2. Moderate to large colonic stool burden. Tele reveals sinus rhythm Patient is a 59-year-old female who presents with abdominal pain. GI bleeding is ruled out. Did have atypical chest discomfort. Does have history of coronary artery disease. Has had repeated ischemic workups recently. Is on dual antiplatelet therapy. Acute coronary syndrome is not considered at this point. Did have non-STEMI in early July. Was sent to [place] for possible CABG as she was found to have multivessel coronary artery disease. Instead of CABG the patient was given 1 stent (in LAD which resulted in pinching of diagonals). During the next presentation, (still in July 2024) the patient was sent back to [place] and ended up having another stent, this time in LCX. ACS is not considered at this point. To continue aspirin/Plavix. Patient was counseled to be compliant with medication and followups. Seen by GI Chest pain, atypical Coronary artery disease Triple-vessel coronary artery disease Status post PCI (drug-eluting stent deployment of LAD and LCX).. Abdominal pain History of old CVA with left hemiparesis History of Crohn disease/ulcerative colitis Inflammatory Bowel Disease Constipation Hyperlipidemia Status post carotid endarterectomy Diverticular disease, history of Noncompliance with medication and followups Renal Calculi Uterine Leiomyoma Left anterior abdominal wall soft tissue mass/neoplasm Cardiac suggestion for management: Manage in tele Follow-up electrolytes and kidney function tests and correct abnormalities. Keep potassium above 4 and magnesium above 2 Imdur, long-actin mg daily Ranolazine: 500 mg p.o. b.i.d. Diltiazem-ER: 120 mg daily Continue ASA/Plavix Cardiac harrison, is stable and can be followed as outpatient Lifestyle and risk factor modification is advised A total of 75 minutes was spent reviewing the patient record, examining the patient, making a diagnostic and therapeutic plan, discussing this plan with medical personnel, following up on diagnostic studies and following the patient for clinical stability excluding any and all procedures. At least 50% of this time was spent in direct, [id number] contact. Thank you for allowing me to participate in this patient's care. Further recommendations will depend on patient's clinical course. Please do not hesitate to contact me if you have any questions or concerns. This medical document was created using electronic medical record system with ticckle computerized dictation system. Although this document has been carefully reviewed, there may still be some phonetic and typographical errors. These areas are purely typographical due to the imperfection of the software programs, and do not reflect any compromise in the patient's medical care Dietary Evaluation Review Comments: Nutrition Recommendation: 1) Refer [employer] for diabetes education 2) Monitor PO intake, lab values, weight trend, and I/O Expected Outcomes/Goals: To meet >75% estimated needs GI symptoms to improve Fu 3-5 days Plan discussed with: Patient, Other (nurse) BALTAZAR SOMMERS MD Dec 03, 2024 08:43
[2024-12-03 12:35] VITALS: BP 97/57; PULSE 73; RESP 18; TEMP 97.3; O2SAT 96
[2024-12-03] MEDS ORDERED: BACDST PO (12:40)
--- NOTE | 2024-12-03 12:42 | DVHDS2 ---
Discharge Summary Date of Admission Nov 30, 2024 at 17:49 Date of Discharge: Dec 03, 2024 Labs/Diagnostic Data: Laboratory Results Test 12/03/24 05:06 12/01/24 20:35 12/01/24 03:35 11/30/24 12:29 POC Glucose 132 mg/dl (70-106) Troponin I High Sensitivity < 3 ng/L (</=34) White Blood Count 8.2 10^3/uL (4.4-10.8) Red Blood Count 4.46 10^6/uL (4.0-5.20) Hemoglobin 13.5 g/dL (12.2-16.2) Hematocrit 39.7 % (36.0-46.0) Mean Corpuscular Volume 88.9 fL (80.0-100.0) Mean Corpuscular Hemoglobin 30.2 pg (28.0-32.0) Mean Corpuscular Hemoglobin Concent 33.9 g/dL (32.0-36.0) Red Cell Distribution Width 16.2 % (11.8-14.3) Platelet Count 226 10^3/uL (140-450) Mean Platelet Volume 8.6 fL (6.9-10.8) Neutrophils (%) (Auto) 66.3 % (37.0-80.0) Lymphocytes (%) (Auto) 25.7 % (10.0-50.0) Monocytes (%) (Auto) 3.8 % (0.0-12.0) Eosinophils (%) (Auto) 3.5 % (0.0-7.0) Basophils (%) (Auto) 0.7 % (0.0-2.0) Neutrophils # (Auto) 5.4 10 ^3/uL (1.6-8.6) Lymphocytes # (Auto) 2.1 10 ^3/uL (0.4-5.4) Monocytes # (Auto) 0.3 10 ^3/uL (0-1.3) Eosinophils # (Auto) 0.3 10 ^3/uL (0-0.8) Basophils # (Auto) 0.1 10 ^3/uL (0-0.2) Nucleated Red Blood Cells 0.0 % Sodium Level 140 mmol/L (136-145) Potassium Level 3.7 mmol/L (3.5-5.1) Chloride Level 104 mmol/L (98-107) Carbon Dioxide Level 26 mmol/L (20-31) Anion Gap 10 (5-15) Blood Urea Nitrogen 12 mg/dL (9-23) Creatinine 0.96 mg/dL (0.550-1.02) Glomerular Filtration Rate Calc 67 mL/min (>90) BUN/Creatinine Ratio 12.5 (10.0-20.0) Serum Glucose 154 mg/dL (74-106) Calcium Level 8.9 mg/dL (8.7-10.4) Total Bilirubin 0.3 mg/dL (0.2-1.0) Aspartate Amino Transferase (AST) 15 U/L (13-40) Alanine Aminotransferase (ALT) < 9 U/L (7-40) Alkaline Phosphatase 124 U/L (46-116) Total Protein 6.8 g/dL (5.7-8.2) Albumin 4.4 g/dL (3.2-4.8) Urine Color Yellow (Yellow) Urine Clarity Turbid (Clear) Urine pH 5.5 (5.0-9.0) Urine Specific [place] 1.024 (1.001-1.035) Urine Protein Trace (Negative) Urine Ketones Negative (Negative) Urine Blood Trace /uL (Negative) Urine Nitrite Negative (Negative) Urine Bilirubin Negative (Negative) Urine Urobilinogen Normal mg/dL (Negative) Urine Leukocyte Esterase 2+ /uL (Negative) Urine RBC 27 /hpf (0 - 4) Urine Microscopic WBC 242 /HPF (0-5) Urine Squamous Epithelial Cells Few /hpf (<5) Urine Bacteria None seen /hpf (None Seen) Urine Glucose 1+ mg/dL (Normal) Test 11/30/24 08:25 Stool Occult Blood Negative (Negative) Stool Occult Blood Sample #3 (Negative) Other Laboratory Tests 12/01/24 03:35 Brief Hx & Hospital Course: 59 year old female with history of uterine cancer, crhn's. ulcerative colitis is complaining of abdominal pain for one day. Patient states she is also having black stool and has chronic diarrhea. She is on Plavix. Patient was admitted November 30, 2024 for complaints of melena. Patient has a history of coronary artery disease status post stent x 2 from [place]. Patient has triple vessel coronary artery disease by [place]. Patient was too high risk for CABGPatient has a history of CVA without any deficits. Patient also had chronic renal calculi. There is some concern patient has some noncompliance with taking her medications and outpatient follow-up with her providers. Stool for occult blood was negative hemoglobin remained stable. No further complaints of melena. Patient cleared for discharge. Patient has a UTI. She was given oral prescription for antibiotics and she will follow-up with Dr. Casas within 1 week. There were no complaints or new complaints upon discharge, all questions and concerns were answered. Patient was advised to return to the ER or call 911 if any headaches, dizziness, shortness of breath, chest pain, bleeding, fevers, or worsening of medical condition. Patient/Family was counseled about treatment plan, medications, possible side effects, patient verbalized understanding. All questions were answered to the best of my ability. The patient symptoms improved and they are okay to be DC. Condition at Discharge: Stable Final Diagnosis/Problems List uti UNSTABLE ANGINA Discharge Disposition: Home Discharge Instruct/Medications Diet: Cardiac 2g Na,low cholest Activity: No Restrictions, As Tolerated Follow Up/Referral: PCP 1 WEEK Medications: CONTINUE HOME MEDS Scheduled Aspirin (Aspirin Low Dose), 1 TAB PO DAILY, (Reported) Atorvastatin Calcium (Atorvastatin Calcium), 1 TAB PO DAILY, (Reported) Balsalazide Disodium (Balsalazide Disodium), 3 CAP PO BID, (Reported) Cholecalciferol (Vitamin D-3 Super Strengt), 1 TAB PO DAILY, (Reported) Clopidogrel Bisulfate (Clopidogrel), 1 TAB PO DAILY, (Reported) Docusate Sodium (Docusate Sodium), 1 CAP PO BID, (Reported) Furosemide (Furosemide), 1 TAB PO BID, (Reported) Gabapentin (Gabapentin), 1 CAP PO Q8HR, (Reported) Isosorbide Mononitrate (Isosorbide Mononitrate Er), 1 TAB PO DAILY Lidocaine (Lidoderm 5% Topical Patch), 1 PATCH TOP DAILY Metronidazole (Flagyl), 500 MG PO TID Paroxetine Hydrochloride (Paroxetine Hydrochloride), 1 TAB PO DAILY, (Reported) Polyethylene Glycol 3350 (Miralax), 17 GM PO DAILY Potassium Chloride (Potassium Chloride ER), 1 TAB PO BID, (Reported) Ranolazine (Ranolazine ER), 500 MG PO BID Simvastatin (Simvastatin), 1 TAB PO DAILY, (Reported) Sitagliptin Phosphate (Januvia), 1 TAB PO DAILY, (Reported) Sulfamethoxazole W/Trimethopri (Bactrim Ds Tablet), 1 TAB PO BID Tirzepatide (Mounjaro), 7.5 MG SC QWEEKLY, (Reported) Scheduled PRN Albuterol Sulfate (Albuterol Sulfate Hfa), 108 MCG IN BID PRN Baclofen (Baclofen), 5 MG PO Q8HP PRN Hydrocodone-Acetaminophen (Hydrocodone Bitartrate/AC 10-325 mg), 1 TAB PO Q6HR PRN for CHRONIC PAIN, (Reported) Hydrocodone-Acetaminophen (Hydrocodone Bitartrate/AC 5-325 mg), 1 TAB PO Q8HP PRN Discharge Statement: "Patient was advised to return to the ER or call 911 if any headaches, dizziness, shortness of breath, chest pain, abdominal pain, bleeding, fevers, or worsening of medical condition. Patient was counseled about treatment plan, medications, possible side effects, patientverbalized understanding. All questions were answered to the best of my ability. This discharge took greater then 30 minutes in planning, reviewing documentation, counseling the patient, and discussing with other team members." ASSESSMENT ASSESSMENT Assessment uti UNSTABLE ANGINA TED HUSSEIN NP Dec 03, 2024 12:42
--- NOTE | 2024-12-03 13:53 | DVHPN2 ---
Progress Note - Dictate Date Seen: Dec 03, 2024 Medical Necessity Reason Pt with a Central, PICC or Fol: No Subjective No new complaints, patient is sleeping comfortably 4-5 small bowel movements reported No active bleeding Abdominal pain is better vital signs Vital Sign Date Time Temp Pulse Resp B/P (MAP) Pulse Ox O2 Delivery O2 Flow Rate FiO2 12/03/24 12:35 97.3 73 18 97/57 (70) 96 97.3 12/03/24 08:00 Room Air* 0 21 Total Intake and Output 12/02/24 12/02/24 12/03/24 15:00 23:00 07:00 Intake Total 830 ml 500 ml Balance 830 ml 500 ml medications Current Medications Medications Dose Ordered Sig/Damon Route Start Time Stop Time Status Last Admin Dose Admin Acetaminophen/ Hydrocodone Bitart 1 tab Q4HP PRN PO 11/30/24 18:00 12/01/24 04:19 1 TAB Temazepam 15 mg QHSP PRN PO 11/30/24 18:00 Ondansetron HCl 4 mg Q4HP PRN IV 11/30/24 18:00 12/01/24 19:58 4 MG Docusate Sodium 100 mg BIDPRN PRN PO 11/30/24 18:00 12/03/24 10:13 100 MG Acetaminophen 650 mg Q6HP PRN PO 11/30/24 18:00 Morphine Sulfate 2 mg Q4HPRN PRN IV 11/30/24 18:00 12/03/24 05:04 2 MG Nitroglycerin 0.4 mg Q5MINP PRN SL 11/30/24 18:00 Morphine Sulfate 2 mg Q30M PRN IV 11/30/24 18:00 Diagnostic Test (Pha) 1 strip ACHS 11/30/24 22:00 12/03/24 05:57 1 STRIP Insulin Human Regular HS SC 11/30/24 22:00 12/02/24 21:30 4 UNITS Insulin Human Regular AC SC 12/01/24 07:00 12/03/24 12:14 6 UNITS Dextrose 50 ml UD PRN IV 11/30/24 18:00 Aspirin 81 mg DAILY PO 12/01/24 10:00 12/03/24 10:14 81 MG Atorvastatin Calcium 20 mg HS PO 11/30/24 22:00 12/02/24 21:33 20 MG Clopidogrel Bisulfate 75 mg DAILY PO 12/01/24 10:00 12/03/24 10:13 75 MG Furosemide 40 mg BIDD PO 11/30/24 18:18 12/03/24 05:44 40 MG Gabapentin 300 mg Q8HR PO 11/30/24 22:00 12/03/24 05:44 300 MG Paroxetine HCl 20 mg DAILY PO 12/01/24 10:00 12/03/24 10:12 20 MG Ranolazine 500 mg BID PO 11/30/24 22:00 12/03/24 10:13 500 MG Ertapenem 1 gm/ Sodium Chloride 50 ml @ 100 mls/hr DAILY IV 12/01/24 10:00 12/03/24 10:20 100 MLS/HR Diltiazem HCl 120 mg DAILY PO 12/02/24 10:00 12/03/24 10:13 120 MG Isosorbide Mononitrate 30 mg DAILY PO 12/02/24 10:00 12/03/24 10:14 30 MG objective General: NAD, AAOX3 Chest: lung fernandez clear to auscultation Heart: RRR, no murmur Abdomen: Moderate generalized tenderness to palpation, mild distention +BS laboratory and microbiology Laboratory Tests 12/01/24 03:35 Test 12/01/24 03:35 Range/Units Serum Glucose 154 H 74-106 mg/dL Problems(with codes): (1) Constipation (2) Obesity (3) LLQ pain Prognosis Plan Advance diet as tolerated Discharge planning is in progress Colace 100 mg p.o. twice a day Outpatient follow up with GI Services for discussing further management Dietary Evaluation Review Comments: Nutrition Recommendation: 1) Refer Tip Out Worker for diabetes education 2) Monitor PO intake, lab values, weight trend, and I/O Expected Outcomes/Goals: To meet >75% estimated needs GI symptoms to improve Fu 3-5 days Plan discussed with: Other (Christina singh) ISRAEL FARAH MD Dec 03, 2024 13:53
[2024-12-03 14:44] VITALS: BP 115/83; PULSE 82
== END 2024-12-03 15:27 | disposition home or self-care (01) | DRG 690 ==
LOC: ER 08:02 → OVERFLOW 17:49 → TELE-WESTW 12-01 23:42
PROVIDERS: ADMIT Nurse Practitioner; ATTEND Nurse Practitioner
DX: N30.01 Acute cystitis with hematuria (principal); I25.110 Atherosclerotic heart disease of native coronary artery with unstable angina pectoris; I69.354 Hemiplegia and hemiparesis following cerebral infarction affecting left non-dominant side; I50.32 Chronic diastolic (congestive) heart failure; N17.9 Acute kidney failure, unspecified; K56.41 Fecal impaction; I69.320 Aphasia following cerebral infarction; I11.0 Hypertensive heart disease with heart failure; E66.01 Morbid (severe) obesity due to excess calories; Z68.32 Body mass index [BMI] 32.0-32.9, adult; E11.40 Type 2 diabetes mellitus with diabetic neuropathy, unspecified; E78.5 Hyperlipidemia, unspecified; K57.30 Diverticulosis of large intestine without perforation or abscess without bleeding; D25.9 Leiomyoma of uterus, unspecified; N20.0 Calculus of kidney; Z91.040 Latex allergy status; Z95.5 Presence of coronary angioplasty implant and graft; Z91.148 Patient's other noncompliance with medication regimen for other reason; Z90.49 Acquired absence of other specified parts of digestive tract; Z86.19 Personal history of other infectious and parasitic diseases; Z85.42 Personal history of malignant neoplasm of other parts of uterus; Z85.41 Personal history of malignant neoplasm of cervix uteri; Z85.038 Personal history of other malignant neoplasm of large intestine; Z83.3 Family history of diabetes mellitus; Z82.49 Family history of ischemic heart disease and other diseases of the circulatory system; Z82.0 Family history of epilepsy and other diseases of the nervous system; Z80.3 Family history of malignant neoplasm of breast; Z80.0 Family history of malignant neoplasm of digestive organs; Z79.899 Other long term (current) drug therapy; Z79.84 Long term (current) use of oral hypoglycemic drugs; Z79.82 Long term (current) use of aspirin; Z79.02 Long term (current) use of antithrombotics/antiplatelets; Z83.49 Family history of other endocrine, nutritional and metabolic diseases; I25.2 Old myocardial infarction
CPT/HCPCS: 36415; 74176; 80053; 81001; 82270; 82962; 84484; 85025; 87081; 96365; 96372; G0378; J1335; J1815; J2405; Q0162

== ENCOUNTER 2024-12-25 11:41 | Inpatient (IN) | payer MEDICARE, MEDICAID ==
[~2024-12-25] VITALS: Ht 157.5 cm; Wt 87.0 kg
[~2024-12-25 11:41] MED LIST changes: +BACDST PO
[2024-12-25 12:41] LABS: Hematocrit 44.2 % (36.0-46.0); Hemoglobin 14.9 g/dL (12.2-16.2); Mean Corpuscular Hemoglobin 30.5 pg (28.0-32.0); Mean Corpuscular Volume 90.4 fL (80.0-100.0); Nucleated Red Blood Cells % 0.1 %
[2024-12-25 12:49] LABS: Chloride 104 mmol/L (98-107); Potassium 3.6 mmol/L (3.5-5.1); Sodium 145 mmol/L (136-145)
[2024-12-25 12:50] LABS: Anion Gap 13 (5-15); Carbon Dioxide 28 mmol/L (20-31)
[2024-12-25 12:51] LABS: Calcium 9.3 mg/dL (8.7-10.4)
[2024-12-25 12:55] LABS: BUN/Creatinine Ratio 10.1 (10.0-20.0); Blood Urea Nitrogen 12 mg/dL (9-23)
[2024-12-25 12:56] LABS: Glucose 245 mg/dL (74-106)
--- NOTE | 2024-12-25 13:09 | ED.PDOC ---
GI ASSESSMENT HPI Comments This is a 59 year old female presenting to the ED with chief complaint of abdominal pain. Patient reports that she has been experiencing suprapubic pain for the past week with worsening pain when walking. Patient relays that she feels as if "something is falling out" when walking. Patient states she has history of uterine prolapse due to previous history of cervical cancer in 2021. Patient denies any N/V/D, dizziness, fever, chills, dysuria, or hematuria. Chief Complaint: Abdominal Pain Time Seen by MD: 13:05 Primary Care Provider: unknown Reviewed Notes: Nurses Notes, Medications, Allergies Allergies: Coded Allergies: Latex (Verified Allergy, Mild, 06/02/24) INCLUDING TAPE, BROWN AND CLEAR TAPE Home Meds Active Scripts Sulfamethoxazole W/Trimethopri (Bactrim Ds Tablet) 1 Tab Tb, 1 TAB PO BID for 5 Days, #10 TAB Prov:TED HUSSEIN NP 12/03/24 Metronidazole (Flagyl) 500 Mg Tab, 500 MG PO TID for 14 Days, #42 TAB Prov:TAMI ROOT CUSTOMER COUNTER ASSOCIATE 10/28/24 Hydrocodone-Acetaminophen (Hydrocodone Bitartrate/AC 5-325 mg) 1 Tab Tab, 1 TAB PO Q8HP PRN for 5 Days, #15 TAB Prov:SEAN ZEPEDA MD 09/30/24 Ranolazine (Ranolazine ER) 500 Mg Tab, 500 MG PO BID for 30 Days, #60 TAB Prov:TED HUSSEIN NP 07/30/24 Baclofen (Baclofen) 10 Mg Tab, 5 MG PO Q8HP PRN for 7 Days, #21 TAB Prov:TED HUSSEIN NP 07/30/24 Isosorbide Mononitrate (Isosorbide Mononitrate Er) 30 Mg Tab, 1 TAB PO DAILY, #30 TAB 5 Refills Prov:TED HUSSEIN NP 07/30/24 Lidocaine (LIDODERM 5% TOPICAL PATCH) 1 Patch Ph, 1 PATCH TOP DAILY for 30 Days, #30 PATCH 0 Refills Prov:MIAN ROMO NP 06/02/24 Polyethylene Glycol 3350 (Miralax) 17 Gm Pow, 17 GM PO DAILY for 15 Days, #15 POW Prov:TED HUSSEIN NP 05/03/24 Albuterol Sulfate (Albuterol Sulfate Hfa) 108 Mcg/Act Aer, 108 MCG IN BID PRN for 10 Days, #1 AER 0 Refills Prov:LILI LUNSFORD DO 12/01/22 Reported Medications Docusate Sodium (Docusate Sodium) 100 Mg Cap, 1 CAP PO BID for 30 Days, #60 07/03/24 Simvastatin (Simvastatin) 20 Mg Tab, 1 TAB PO DAILY for 90 Days, #90 07/03/24 Hydrocodone-Acetaminophen (Hydrocodone Bitartrate/AC 10-325 mg) 1 Tab Tab, 1 TAB PO Q6HR PRN for CHRONIC PAIN for 30 Days, #120 07/03/24 Potassium Chloride (Potassium Chloride ER) 10 Meq Tab, 1 TAB PO BID for 90 Days, #180 07/03/24 Paroxetine Hydrochloride (Paroxetine Hydrochloride) 20 Mg Tab, 1 TAB PO DAILY for 90 Days, #90 05/01/24 Tirzepatide (Mounjaro) 7.5 Mg/0.5 Ml Inj, 7.5 MG SC QWEEKLY for 28 Days, #2 10/18/23 Sitagliptin Phosphate (Januvia) 100 Mg Tab, 1 TAB PO DAILY 10/18/23 Clopidogrel Bisulfate (CLOPIDOGREL) 75 Mg Tab, 1 TAB PO DAILY 10/18/23 Furosemide (Furosemide) 40 Mg Tab, 1 TAB PO BID 10/18/23 Atorvastatin Calcium (ATORVASTATIN CALCIUM) 20 Mg Tab, 1 TAB PO DAILY 10/17/23 Cholecalciferol (Vitamin D-3 Super Strengt) 2,000 Unit Tab, 1 TAB PO DAILY 10/17/23 Gabapentin (Gabapentin) 300 Mg Cap, 1 CAP PO Q8HR for NEUROPATHIC PAIN for 30 Days, #90 10/17/23 Aspirin (Aspirin Low Dose) 81 Mg Tab, 1 TAB PO DAILY 10/17/23 Balsalazide Disodium (Balsalazide Disodium) 750 Mg Cap, 3 CAP PO BID for 30 Days, #180 10/17/23 Information Source: Patient Mode of Arrival: Ambulatory Timing: Weeks Duration: Since onset Prehospital treatment: None Quality: Sharp Vomitus: None Stool: Normal Severity: Moderate Recent: None Recent Hx of: None Pain Location: Suprapubic Associated sign and symptoms: Abdominal Pain Past Medical History PAST MEDICAL HISTORY: Angina, CAD, Cancer, CHF, CVA, DM, High Lipids, Kidney Stones, Liver, PR Past Medical History (Other): Prolapsed uterus Surgical History: Cholecystectomy, Hernia Repair, PTCA VP STRATEGY History: No Pertinent VP STRATEGY History Family History Family History: Reviewed,noncontributory to illness, Family hx of Cancer, Family hx of heart naveen Social History Smoker: Non-Smoker Alcohol: Denies ETOH Use Drugs: Denies Drug Use Lives In: Home Constitutional: denies: chills, diaphoresis, fatigue, fever, malaise, sweats, weakness, others EENTM: denies: blurred vision, double vision, ear bleeding, ear discharge, ear drainage, ear pain, ear ringing, eye pain, eye redness, hearing loss, mouth pain, mouth swelling, nasal discharge, nose bleeding, nose congestion, nose pain, photophobia, tearing, throat pain, throat swelling, voice changes, others Respiratory: denies: cough, hemoptysis, orthopnea, SOB at rest, shortness of breath, SOB with excertion, stridor, wheezing, others Cardiovascular: denies: chest pain, dizzy spells, diaphoresis, Dyspnea on exertion, edema, irregular heart beat, left arm pain, lightheadedness, palpitations, PND, syncope, others Gastrointestinal: reports: abdominal pain; denies: abdomen distended, blood streaked bowels, constipated, diarrhea, dysphagia, difficulty swallowing, hematemesis, melena, nausea, poor appetite, poor fluid intake, rectal bleeding, rectal pain, vomiting, others Genitourinary: denies: abnormal vagina bleeding, burning, dyspareunia, dysuria, flank pain, frequency, hematuria, incontinence, pain, , vagina discharge, urgency, others Neurological: denies: dizziness, fainting, headache, left sided numbness, left sided weakness, numbness, paresthesia, pre-existing deficit, right sided numbness, right sided weakness, seizure, speech problems, tingling, tremors, weakness, others Musculoskeletal: denies: back pain, gout, joint pain, joint swelling, muscle pain, muscle stiffness, neck pain, others Integumetry: denies: bruises, change in color, change in hair/nails, dryness, laceration, lesions, lumps, rash, wounds, others Allergic/Immunocompromised: denies: Difficulty Healing, Frequent Infections, Hives, Itching, others Hematologic/Lymphatic: denies: anemia, blood clots, easy bleeding, easy bruising, swollen glands, others Endocrine: denies: excessive hunger, excessive sweating, excessive thirst, excessive urination, flushing, intolerance to cold, intolerance to heat, unex plained weight gain, unexplained weight loss, others Psychiatric: denies: anxiety, bipolar disorder, depression, hopeless, panic disorder, schizophrenia, sleepless, suicidal, others All Other Systems: Reviewed and Negative Physical Exam General Appearance: No Apparent Distress, Normal HEENT: Normal ENT Inspection, Pharynx Normal, TMs Normal Neck: Full Range of Motion, Non-Tender, Normal, Normal Inspection Respiratory: Chest Non-Tender, Lungs Clear, No Accessory Muscle Use, No Respiratory Distress, Normal Breath Sounds Cardiovascular: No Edema, No JVD, No Murmur, No Gallop, Normal Peripheral Puls es, Regular Rate/Rhythm Breast Exam: Deferred Gastrointestinal: No Organomegaly, No Pulsatile Mass, Normal Bowel Sounds, Soft, Tenderness (Diffuse abdominal tenderness) Genitalia: Deferred Pelvic: Deferred Rectal: Deferred Extremities: No calf tenderness, Normal capillary refill, Normal inspection, Normal range of motion, Non-tender, No pedal edema Musculoskeletal : Apperance: Normal Neurologic: Alert, credentials specialist II-XII nml as Tested, No Motor Deficits, Normal Affect, Normal Mood, No Sensory Deficits Cerebellar Function: Normal Reflexes: Normal Skin: Dry, Normal Color, Warm Lymphatic: No Adenopathy Was a procedure done? Was a procedure done?: No GI differential Dx Differential Diagnosis: Gastroenteritis, UTI, Urolithiasis, Dehydration, Diabetes/ DKA, Electrolyte Imbalance, Viral X-Ray, Labs, Meds, VS Vital Signs Date Time Temp Pulse Resp B/P (MAP) Pulse Ox O2 Delivery O2 Flow Rate FiO2 12/25/24 14:59 0 0 0/0 12/25/24 14:29 87 18 147/86 12/25/24 13:30 83 18 104/72 (83) 95 12/25/24 11:42 97.1 88 18 127/78 97 97.1 Lab Test 12/25/24 13:00 12/25/24 12:19 Range/Units Urine Color Yellow Yellow Urine Clarity Cloudy H Clear Urine pH 5.5 5.0-9.0 Urine Specific [place] 1.022 1.001-1.035 Urine Protein 1+ H Negative Urine Ketones Negative Negative Urine Blood 2+ H Negative /uL Urine Nitrite Negative Negative Urine Bilirubin Negative Negative Urine Urobilinogen Normal Negative mg/dL Urine Leukocyte Esterase 2+ Negative /uL Urine RBC 66 0 - 4 /hpf Urine Microscopic WBC 262 H 0-5 /HPF Urine Squamous Epithelial Cells Few <5 /hpf Urine Bacteria None seen None Seen /hpf Urine Hyaline Casts Few 0 - 2 /lpf Urine Mucus Few None Seen Urine Yeast (Budding) Occasional None Seen /hpf Urine Glucose 1+ H Normal mg/dL White Blood Count 7.8 4.4-10.8 10^3/uL Red Blood Count 4.89 4.0-5.20 10^6/uL Hemoglobin 14.9 12.2-16.2 g/dL Hematocrit 44.2 36.0-46.0 % Mean Corpuscular Volume 90.4 80.0-100.0 fL Mean Corpuscular Hemoglobin 30.5 28.0-32.0 pg Mean Corpuscular Hemoglobin Concent 33.7 32.0-36.0 g/dL Red Cell Distribution Width 15.4 H 11.8-14.3 % Platelet Count 226 140-450 10^3/uL Mean Platelet Volume 8.7 6.9-10.8 fL Neutrophils (%) (Auto) 68.4 37.0-80.0 % Lymphocytes (%) (Auto) 24.6 10.0-50.0 % Monocytes (%) (Auto) 4.1 0.0-12.0 % Eosinophils (%) (Auto) 2.4 0.0-7.0 % Basophils (%) (Auto) 0.5 0.0-2.0 % Neutrophils # (Auto) 5.4 1.6-8.6 10 ^3/uL Lymphocytes # (Auto) 1.9 0.4-5.4 10 ^3/uL Monocytes # (Auto) 0.3 0-1.3 10 ^3/uL Eosinophils # (Auto) 0.2 0-0.8 10 ^3/uL Basophils # (Auto) 0 0-0.2 10 ^3/uL Nucleated Red Blood Cells 0.1 % Sodium Level 145 136-145 mmol/L Potassium Level 3.6 3.5-5.1 mmol/L Chloride Level 104 98-107 mmol/L Carbon Dioxide Level 28 20-31 mmol/L Anion Gap 13 5-15 Blood Urea Nitrogen 12 9-23 mg/dL Creatinine 1.19 H 0.550-1.02 mg/dL Glomerular Filtration Rate Calc 52 >90 mL/min BUN/Creatinine Ratio 10.1 10.0-20.0 Serum Glucose 245 H 74-106 mg/dL Calcium Level 9.3 8.7-10.4 mg/dL Current Medications Medications (Trade) Dose Ordered Sig/Damon Route Start Time Stop Time Status Last Admin Sodium Chloride 1,000 ml @ 1,000 mls/hr Q1H ONCE IV 12/25/24 13:15 12/25/24 14:14 DC 12/25/24 14:30 Morphine Sulfate 4 mg ONCE ONCE IV 12/25/24 13:15 12/25/24 13:16 DC 12/25/24 14:29 Ondansetron HCl (Zofran) 4 mg ONCE ONCE IV 12/25/24 13:15 12/25/24 13:16 DC 12/25/24 14:28 Time of 1ST Reevaluation: 14:04 Reevaluation 1ST: Unchanged Patient Education/Counseling: Diagnosis, Treatment Family Education/Counseling: No Family Present SEPSIS Sepsis Screen Date sepsis recognized/suspect: Dec 25, 2024 Time Sepsis recognized/suspect: 114 Recent Procedure: No On Antibiotic Therapy: No Respiratory Rate >20: No Heart Rate >90: No Temp<36 C (96.8 F) or >38.3 C: No SBP <90 or MAP <65 mmHG: No New Acute Mental Status Change: No Is the patient on CPAP, BIPAP,: No Physician Orders Ct Ab Pel With Iv Con Only (12/25/24 13:01) Vital Signs Date Time Temp Pulse Resp B/P (MAP) Pulse Ox O2 Delivery O2 Flow Rate FiO2 12/25/24 14:59 0 0 0/0 12/25/24 14:29 87 18 147/86 12/25/24 13:30 83 18 104/72 (83) 95 12/25/24 11:42 97.1 88 18 127/78 97 97.1 Laboratory Tests Test 12/25/24 12:19 White Blood Count 7.8 10^3/uL (4.4-10.8) Medications Medications Dose Ordered Sig/Damon Route Start Time Stop Time Status Last Admin Dose Admin Morphine Sulfate 4 mg ONCE ONCE IV 12/25/24 13:15 12/25/24 13:16 DC 12/25/24 14:29 Ondansetron HCl 4 mg ONCE ONCE IV 12/25/24 13:15 12/25/24 13:16 DC 12/25/24 14:28 Sodium Chloride 1,000 ml @ 1,000 mls/hr Q1H ONCE IV 12/25/24 13:15 12/25/24 14:14 DC 12/25/24 14:30 Departure 1 Departure Time of Disposition: 16:31 (Patient presented with abdominal pain that was concerning for possible appendicits, gastritis, cholecystitis, colitis, gastroenteritis, sbo, or orther possible surgical emergency. Data: 1. I ordered and reviewed the result of at least 3 labs including a CBC, BMP, and Urinalysis. 2. I independently interpreted the following tests: CT Abdomen and Pelvis is concerning for pyelonephritis and cellulitis .Risk:This patient has a high risk of morbidity due to further diagnostic testing or treatment and may suffer from an acute abdominal process disorder. Workup reveals pyelonephritis and cellulitis and patient should be admitted for further workup. and possible expert consultation. ) Impression: Primary Impression: Pyelonephritis Additional Impressions: Intractable abdominal pain Cellulitis Qualified Codes: L03.311 - Cellulitis of abdominal wall Disposition: 09 ADMITTED INPATIENT Admit to: Med Surg Condition: Serious Critical Care Note Critical Care Time?: Yes Critical care comment: Intractable abdominal pain Authorized and Performed by: Sarah Velazquez MD Total critical care time: Approximately 38 minutes Due to a high probability of clinically significant, life threatening deterioration, the patient required my highest level of preparedness to intervene emergently and I personally spent this critical care time directly and personally managing the patient. This critical care time included obtaining a history; examining the patient; pulse oximetry; ordering and review of studies; arranging urgent treatment with development of a management plan; evaluation of patient's response to treatment; frequent reassessment; and, discussions with other providers. This critical care time was performed to assess and manage the high probability of imminent, life-threatening deterioration that could result in multi-organ failure. It was exclusive of separately billable procedures and treating other patients and teaching time. Please see my other sections and the rest of the note for further information on patient assessment and treatment. Stability Stability form required: No Heart Score Heart Score: Heart Score Response (Comments) Value History N/A 0 EKG N/A 0 Age N/A 0 Risk Factors N/A 0 Troponin N/A 0 Total 0 I personally scribed for SARAH VELAZQUEZ MD ([email or web address]) on 12/25/24 at 13:09. Electronically submitted by Ke Nguyễn ([email or web address]). SARAH VELAZQUEZ MD Dec 25, 2024 13:09
[2024-12-25] MEDS: IOHEXOL 300 MG/ML 100ML BOTTLE IJ ONE (13:17)
[2024-12-25 13:43] LABS: Urine Budding Yeast OCCASIONAL /hpf (None Seen); Urine Protein, UAD 1+ (Negative)
[2024-12-25] MEDS: ONDANSETRON HCL 4 MG/2 ML VIAL IV ONE (14:28)
[2024-12-25] MEDS: MORPHINE SULFATE 4 MG/ML SYR/VIAL IV ONE (14:29)
[2024-12-25] MEDS: SODIUM CHLORIDE 0.9% 1,000 ML IV ONE (14:30)
--- NOTE | 2024-12-25 16:23 | DVH ---
Exam: CT CT AB PEL WITH IV CON ONLY History: abdominal pain Comparison Study: CT CT AB PEL WITH IV CON ONLY on DOS: 11/11/24, CT CT AB PEL WITH ORAL CON ONLY on DO S: 10/24/24, CT ABD/PEL W - IV on DOS: 10/02/23 TECHNIQUE: A digital technology sales representative image was obtained. During the uneventful, intravenous administration of c ontrast material, multislice data acquisition was obtained through the abdomen and pelvis. The data s et was subsequently reconstructed into axial images. Images reviewed on a wrist examination is an exa mination of axial and multiplanar reformations using a variety of window levels and settings. RADIATION DOSE: DLP 1160.05 mGy.cm; CTDI vol 23.42 mGy. Findings: Lungs: The lung bases are clear. Heart: No cardiomegaly or pericardial effusion. Liver: Unremarkable. Gallbladder: Unremarkable. Spleen: Unremarkable Pancreas: Unremarkable Adrenals: Unremarkable Kidneys: Unremarkable GI tract: Diverticulosis without evidence of acute diverticulitis. : Myomatous uterus Vasculature: Unremarkable Lymphadenopathy: Absent Peritoneum: No ascites Musculoskeletal: Mild multilevel degenerative changes of the thoracolumbar spine. Soft tissues: Left lower abdominal wall subcutaneous stranding (axial image 72). Impression: 1. No acute abdominopelvic abnormalities. 2. Diverticulosis without evidence of acute diverticulitis. 3. Left lower abdominal wall subcutaneous stranding, nonspecific. Correlate with history.
[2024-12-25] MEDS: VANCOMYCIN 1GM/250ML KIT 250 ML IV ONE (17:24)
[2024-12-25] MEDS: CEFEPIME 2GM/50ML NS 50 ML IV ONE (17:25)
--- NOTE | 2024-12-25 17:37 | DVHHP2 ---
Admitting Diagnosis: Abdominal pain History of Present Illness 59 yo female with hx of uterine prolapse and cervical cancer c/o suprapubic abdominal pain that worsens with ambulation. Sts that she "feels like something is falling out". While in the emergency department the patient was evaluated by the provider, As per provider: Labs, vital signs, and imagining monitored. Patient will be admitted for further evaluation and treatment. I discussed admission with the patient/family and is in agreement to treatment plan. Patient Family History: FH: breast cancer G8 SISTER FH: cancer FH: liver cancer G8 MOTHER, , Cause: Liver cancer Family history: Alzheimer's disease G8 MOTHER, , Cause: Liver cancer, Onset:Unknown Family history: Cardiovascular disease G8 FATHER, , Cause: CHF (congestive heart failure), Onset:Unknown Family history: Diabetes mellitus G8 BROTHER, Onset:Unknown Thyroid disease 19 CHILD Thyroid disease 19 CHILD Allergies: Coded Allergies: Latex (Verified Allergy, Mild, 06/02/24) INCLUDING TAPE, BROWN AND CLEAR TAPE Home Meds Active Scripts Sulfamethoxazole W/Trimethopri (Bactrim Ds Tablet) 1 Tab Tb, 1 TAB PO BID for 5 Days, #10 TAB Prov:TED HUSSEIN NP 12/03/24 Metronidazole (Flagyl) 500 Mg Tab, 500 MG PO TID for 14 Days, #42 TAB Prov:TAMI ROOTP 10/28/24 Hydrocodone-Acetaminophen (Hydrocodone Bitartrate/AC 5-325 mg) 1 Tab Tab, 1 TAB PO Q8HP PRN for 5 Days, #15 TAB Prov:SEAN ZEPEDA MD 09/30/24 Ranolazine (Ranolazine ER) 500 Mg Tab, 500 MG PO BID for 30 Days, #60 TAB Prov:TED HUSSEIN NP 07/30/24 Baclofen (Baclofen) 10 Mg Tab, 5 MG PO Q8HP PRN for 7 Days, #21 TAB Prov:TED HUSSEIN NP 07/30/24 Isosorbide Mononitrate (Isosorbide Mononitrate Er) 30 Mg Tab, 1 TAB PO DAILY, #30 TAB 5 Refills Prov:TED HUSSEIN NP 07/30/24 Lidocaine (LIDODERM 5% TOPICAL PATCH) 1 Patch Ph, 1 PATCH TOP DAILY for 30 Days, #30 PATCH 0 Refills Prov:MIAN ROMO EMERGENCY VEHICLE OPERATOR 06/02/24 Polyethylene Glycol 3350 (Miralax) 17 Gm Pow, 17 GM PO DAILY for 15 Days, #15 POW Prov:TED HUSSEIN Kim EMERGENCY VEHICLE OPERATOR 05/03/24 Albuterol Sulfate (Albuterol Sulfate Hfa) 108 Mcg/Act Aer, 108 MCG IN BID PRN for 10 Days, #1 AER 0 Refills Prov:LILI LUNSFORD DO 12/01/22 Reported Medications Docusate Sodium (Docusate Sodium) 100 Mg Cap, 1 CAP PO BID for 30 Days, #60 07/03/24 Simvastatin (Simvastatin) 20 Mg Tab, 1 TAB PO DAILY for 90 Days, #90 07/03/24 Hydrocodone-Acetaminophen (Hydrocodone Bitartrate/AC 10-325 mg) 1 Tab Tab, 1 TAB PO Q6HR PRN for CHRONIC PAIN for 30 Days, #120 07/03/24 Potassium Chloride (Potassium Chloride ER) 10 Meq Tab, 1 TAB PO BID for 90 Days, #180 07/03/24 Paroxetine Hydrochloride (Paroxetine Hydrochloride) 20 Mg Tab, 1 TAB PO DAILY for 90 Days, #90 05/01/24 Tirzepatide (Mounjaro) 7.5 Mg/0.5 Ml Inj, 7.5 MG SC QWEEKLY for 28 Days, #2 10/18/23 Sitagliptin Phosphate (Januvia) 100 Mg Tab, 1 TAB PO DAILY 10/18/23 Clopidogrel Bisulfate (CLOPIDOGREL) 75 Mg Tab, 1 TAB PO DAILY 10/18/23 Furosemide (Furosemide) 40 Mg Tab, 1 TAB PO BID 10/18/23 Atorvastatin Calcium (ATORVASTATIN CALCIUM) 20 Mg Tab, 1 TAB PO DAILY 10/17/23 Cholecalciferol (Vitamin D-3 Super Strengt) 2,000 Unit Tab, 1 TAB PO DAILY 10/17/23 Gabapentin (Gabapentin) 300 Mg Cap, 1 CAP PO Q8HR for NEUROPATHIC PAIN for 30 Days, #90 10/17/23 Aspirin (Aspirin Low Dose) 81 Mg Tab, 1 TAB PO DAILY 10/17/23 Balsalazide Disodium (Balsalazide Disodium) 750 Mg Cap, 3 CAP PO BID for 30 Days, #180 10/17/23 Current Medications Current Medications Medications (Trade) Dose Ordered Sig/Damon Route PRN Reason Start Time Stop Time Status Last Admin Aspirin (Ecotrin Enteric Coated Tablet) 81 mg DAILY PO 12/26/24 10:00 12/26/24 10:57 Atorvastatin Calcium (Lipitor) 20 mg HS PO 12/26/24 22:00 12/26/24 21:33 Clopidogrel Bisulfate (Plavix) 75 mg DAILY PO 12/26/24 10:00 12/26/24 10:56 Docusate Sodium (Colace Capsule) 100 mg BID PO 12/25/24 22:00 12/26/24 21:30 Gabapentin (Neurontin Capsule) 300 mg Q8HR PO 12/25/24 22:00 12/26/24 21:31 Paroxetine HCl (Paxil Tablet) 20 mg DAILY PO 12/26/24 10:00 12/26/24 10:57 Ranolazine (Ranexa ER) 500 mg BID PO 12/25/24 22:00 12/26/24 21:31 Cholecalciferol (Vitamin D3 Tablet) 2,000 unit DAILY PO 12/26/24 10:00 12/26/24 10:56 Isosorbide Mononitrate (Imdur Er Tablet) 30 mg DAILY PO 12/26/24 10:00 12/26/24 11:01 Patient Own Medication 1 tab DAILY PO 12/26/24 10:00 12/25/24 20:38 DC Patient Own Medication 1 tab DAILY PO 12/26/24 10:00 Diltiazem HCl (Cardizem ER Capsule) 120 mg DAILY PO 12/27/24 10:00 Cefepime HCl 50 ml @ 12.5 mls/hr Q12HR IV 12/26/24 14:00 12/26/24 21:33 Review of Systems Constitutional: denies chills, denies fever, denies malaise Eyes: denies eye pain, denies vision change ENT: denies ear pain, denies headache, denies nasal congestion, denies painful swallowing, denies voice change Cardiovascular: denies chest pain, denies edema, denies orthopnea, denies palpitations, denies paroxysmal nocturnal dyspnea Respiratory: denies cough, denies shortness of breath Gastrointestinal: denies constipation, denies diarrhea, denies nausea, denies vomiting Genitourinary: denies dysuria, denies frequent urination, denies urethral discharge Musculoskeletal: denies back pain, denies joint pain, denies muscle pain Skin: denies bruising, denies itching, denies rash Neurological: denies focal weakness, denies headache, denies sensory changes Psychiatric: denies anxiety, denies depression Endocrine: denies polydipsia, denies polyuria Hematologic/Lymphatic: denies easy bleeding, denies easy bruising, denies enlarged lymph nodes Allergic/Immunologic: denies allergy, denies hives Vital Signs Vital Signs Date Time Temp Pulse Resp B/P (MAP) Pulse Ox O2 Delivery O2 Flow Rate FiO2 12/26/24 20:45 98.1 69 18 101/65 (77) 94 98.1 12/26/24 13:20 Room Air* 0 96 21 Physical Exam General Appearance: alert, no distress HEENT: EOMI, PERRLA, normal external inspect of ears, no icterus, no nasal drainage Neck: no carotid bruit, no jugular venous distention (JVD), no lymphadenopathy Chest: normal thorax Respiratory: clear to auscultation, normal air movement Cardiovascular: regular rate and rhythm, no diastolic murmur, no jugular venous distention (JVD), no rub, no systolic murmur Abdominal: soft, no hepatomegaly, no mass, no splenomegaly, no tenderness Genitourinary: grossly normal external Musculoskeletal: no joint tenderness, no swelling Extremities: normal pulses, no calf tenderness, no clubbing, no cyanosis, no edema Skin: no bruising, no jaundice, no rash Neurological: alert, No focal deficit SEPSIS Sepsis Screen Date sepsis recognized/suspect: Dec 25, 2024 Time Sepsis recognized/suspect: 1145 Recent Procedure: No On Antibiotic Therapy: No Respiratory Rate >20: No Heart Rate >90: No Temp<36 C (96.8 F) or >38.3 C: No SBP <90 or MAP <65 mmHG: No New Acute Mental Status Change: No Is the patient on CPAP, BIPAP,: No Physician Orders Ct Ab Pel With Iv Con Only (12/25/24 13:01) Blood Culture (12/25/24 16:32) Admit (12/25/24 17:35) Code Status (12/25/24 17:35) 2 Gm Sodium Diet (12/25/24 Dinner) Oxygen Per Hour (12/25/24 17:35) Hydrocodone-Acet 5/325mg Tab (Riddle 5/32 (12/25/24 17:45) Temazepam (Restoril) (12/25/24 17:45) Ondansetron Hcl (Zofran) (12/25/24 17:45) Condition: Fair (12/25/24 17:35) Acetaminophen Tablet (Tylenol Tablet) (12/25/24 17:45) Morphine Sulfate Injection (12/25/24 17:45) Sequential Compression Device (12/25/24 ) Nitroglycerin Sublingual (Ntrostat Subli (12/25/24 17:45) Morphine Sulfate Injection (12/25/24 17:45) Stat Ekg For Chest Pain (12/25/24 17:35) Notify Md Of Changes From Base (12/25/24 17:35) Manager Business Continuity For 24 Hours (12/25/24 17:35) Emergency Dysrhythmia Protocol (12/25/24 17:35) Rhythm Strips Once Every Shift (12/25/24 17:35) Oxygen By Nasal Cannula (12/25/24 17:35) *Consult Dr. Gonzalez Sabillon (12/25/24 17:35) Aspirin Enteric Coated Tablet (Ecotrin E (12/26/24 10:00) Atorvastatin (Lipitor) (12/26/24 22:00) Clopidogrel Bisulfate (Plavix) (12/26/24 10:00) Docusate Sodium Capsule (Colace Capsule) (12/25/24 22:00) Gabapentin Capsule (Neurontin Capsule) (12/25/24 22:00) Paroxetine Tablet (Paxil Tablet) (12/26/24 10:00) Ranolazine (Ranexa Er) (12/25/24 22:00) Cholecalciferol Tablet (Vitamin D3 Table (12/26/24 10:00) Isosorbide Mononitrate Tablet (Imdur Er (12/26/24 10:00) (Nf) Sitagliptin Phosphate (Januvia) (12/26/24 10:00) Diltiazem Er Capsule (Cardizem Er Capsul (12/27/24 10:00) Cefepime 1gm/50ml (Maxipime 1gm/50ml) (12/26/24 14:00) Vital Signs Date Time Temp Pulse Resp B/P (MAP) Pulse Ox O2 Delivery O2 Flow Rate FiO2 12/26/24 20:45 98.1 69 18 101/65 (77) 94 98.1 12/26/24 18:20 98.7 78 107/76 (86) 96 98.7 12/26/24 17:15 98.2 75 16 92/52 (65) 93 98.2 12/26/24 13:20 16 Room Air* 0 96 21 12/26/24 12:53 98.2 69 17 92/47 (62) 91 98.2 12/26/24 12:30 69 17 92/47 12/26/24 11:02 75 18 104/67 12/26/24 11:01 104/67 12/26/24 09:32 98.1 59 17 100/59 (73) 91 98.1 12/26/24 04:00 64 12/26/24 02:54 64 17 103/55 12/26/24 02:24 86 18 111/67 12/26/24 00:00 63 12/25/24 22:00 97.6 65 14 108/63 (78) 96 97.6 12/25/24 20:00 97.8 72 12 106/53 (70) 97 97.8 12/25/24 20:00 68 12/25/24 20:00 68 12 111/66 12/25/24 19:45 72 12 97 Room Air* 0 21 12/25/24 19:28 66 14 106/53 12/25/24 17:50 73 16 155/59 (91) 98 12/25/24 14:59 0 0 0/0 12/25/24 14:29 87 18 147/86 12/25/24 13:30 83 18 104/72 (83) 95 12/25/24 11:42 97.1 88 18 127/78 97 97.1 Laboratory Tests Test 12/25/24 12:19 12/25/24 16:52 12/26/24 04:01 White Blood Count 7.8 10^3/uL (4.4-10.8) 7.4 10^3/uL (4.4-10.8) Lactic Acid Level 1.7 mmol/L (0.4-2.0) Medications Medications Dose Ordered Sig/Damon Route Start Time Stop Time Status Last Admin Dose Admin Aspirin 81 mg DAILY PO 12/26/24 10:00 12/26/24 10:57 Atorvastatin Calcium 20 mg HS PO 12/26/24 22:00 12/26/24 21:33 Cefepime HCl 50 ml @ 12.5 mls/hr Q12HR IV 12/26/24 14:00 12/26/24 21:33 Cholecalciferol 2,000 unit DAILY PO 12/26/24 10:00 12/26/24 10:56 Clopidogrel Bisulfate 75 mg DAILY PO 12/26/24 10:00 12/26/24 10:56 Isosorbide Mononitrate 30 mg DAILY PO 12/26/24 10:00 12/26/24 11:01 Paroxetine HCl 20 mg DAILY PO 12/26/24 10:00 12/26/24 10:57 Results Labs Test 12/26/24 04:01 12/25/24 16:52 12/25/24 13:00 Range/Units White Blood Count 7.4 4.4-10.8 10^3/uL Red Blood Count 4.32 4.0-5.20 10^6/uL Hemoglobin 13.2 12.2-16.2 g/dL Hematocrit 39.3 # 36.0-46.0 % Mean Corpuscular Volume 90.9 80.0-100.0 fL Mean Corpuscular Hemoglobin 30.6 28.0-32.0 pg Mean Corpuscular Hemoglobin Concent 33.6 32.0-36.0 g/dL Red Cell Distribution Width 15.4 H 11.8-14.3 % Platelet Count 188 140-450 10^3/uL Mean Platelet Volume 8.4 6.9-10.8 fL Neutrophils (%) (Auto) 69.3 37.0-80.0 % Lymphocytes (%) (Auto) 21.6 10.0-50.0 % Monocytes (%) (Auto) 5.2 0.0-12.0 % Eosinophils (%) (Auto) 3.2 0.0-7.0 % Basophils (%) (Auto) 0.7 0.0-2.0 % Neutrophils # (Auto) 5.1 1.6-8.6 10 ^3/uL Lymphocytes # (Auto) 1.6 0.4-5.4 10 ^3/uL Monocytes # (Auto) 0.4 0-1.3 10 ^3/uL Eosinophils # (Auto) 0.2 0-0.8 10 ^3/uL Basophils # (Auto) 0.1 0-0.2 10 ^3/uL Nucleated Red Blood Cells 0.1 % Sodium Level 143 136-145 mmol/L Potassium Level 3.8 3.5-5.1 mmol/L Chloride Level 107 98-107 mmol/L Carbon Dioxide Level 26 20-31 mmol/L Anion Gap 10 5-15 Blood Urea Nitrogen 7 L 9-23 mg/dL Creatinine 1.03 H 0.550-1.02 mg/dL Glomerular Filtration Rate Calc 62 >90 mL/min BUN/Creatinine Ratio 6.8 L 10.0-20.0 Serum Glucose 128 H 74-106 mg/dL Calcium Level 8.9 8.7-10.4 mg/dL Total Bilirubin 0.6 0.2-1.0 mg/dL Aspartate Amino Transferase (AST) 13 13-40 U/L Alanine Aminotransferase (ALT) < 9 7-40 U/L Alkaline Phosphatase 102 46-116 U/L Total Protein 6.2 5.7-8.2 g/dL Albumin 4.0 3.2-4.8 g/dL Lactic Acid Level 1.7 0.4-2.0 mmol/L Urine Color Yellow Yellow Urine Clarity Cloudy H Clear Urine pH 5.5 5.0-9.0 Urine Specific Pelican 1.022 1.001-1.035 Urine Protein 1+ H Negative Urine Ketones Negative Negative Urine Blood 2+ H Negative /uL Urine Nitrite Negative Negative Urine Bilirubin Negative Negative Urine Urobilinogen Normal Negative mg/dL Urine Leukocyte Esterase 2+ Negative /uL Urine RBC 66 0 - 4 /hpf Urine Microscopic WBC 262 H 0-5 /HPF Urine Squamous Epithelial Cells Few <5 /hpf Urine Bacteria None seen None Seen /hpf Urine Hyaline Casts Few 0 - 2 /lpf Urine Mucus Few None Seen Urine Yeast (Budding) Occasional None Seen /hpf Urine Glucose 1+ H Normal mg/dL Microbiology Date/Time Source Procedure Growth Status 12/25/24 16:52 Blood Blood Culture - Preliminary NO GROWTH AFTER 24 HOURS OF INCUBATION. Resulted Plan 1. CAD Stent Monitor EKG, cardiology consult 2. Obesity Monitor 3. DM II & Neuropathy Monitor, insulin ss 4. Acute cystitis Monitor, IV abx 5. Hx of ESBL urine Monitor 6. Chronic diastolic HF Monitor EKG, cardiology consult, continue diuretics 7. Hx of CVA with residual deficits Monitor Plan discussed with: Patient, Other TED HUSSEIN NP Dec 25, 2024 17:37
[2024-12-25] MEDS ORDERED: ONDANSETRON HCL 4 MG/2 ML VIAL IV PRN (17:45)
[2024-12-25] MEDS ORDERED: DOCUSATE SOD 100 MG CAP PO PRN (17:45)
[2024-12-25] MEDS ORDERED: NITROGLYCERIN 0.4 MG SL TAB SL PRN (17:45)
[2024-12-25] MEDS ORDERED: ACETAMINOPHEN 325 MG TAB PO PRN (17:45)
[2024-12-25] MEDS ORDERED: MORPHINE SULFATE INJ 2 MG/ml SYRG IV PRN (17:45)
[2024-12-25] MEDS: MORPHINE SULFATE INJ 2 MG/ml SYRG IV PRN (19:28)
[2024-12-25 19:45] VITALS: PULSE 72; RESP 12; O2SAT 97
[2024-12-25 22:00] VITALS: BP 108/63; PULSE 65; RESP 14; TEMP 97.6; O2SAT 96
[2024-12-25] MEDS: GABAPENTIN 300 MG CAP PO SCH (22:23)
[2024-12-25] MEDS: DOCUSATE SOD 100 MG CAP PO SCH (22:23)
[2024-12-25] MEDS: RANOLAZINE ER 500 MG TAB PO SCH (22:24)
[2024-12-26 04:42] LABS: Hematocrit 39.3 % (36.0-46.0); Hemoglobin 13.2 g/dL (12.2-16.2); Mean Corpuscular Hemoglobin 30.6 pg (28.0-32.0); Mean Corpuscular Volume 90.9 fL (80.0-100.0); Nucleated Red Blood Cells % 0.1 %
[2024-12-26 04:53] LABS: Albumin 4.0 g/dL (3.2-4.8); Alkaline Phosphatase 102 U/L (46-116); Anion Gap 10 (5-15); BUN/Creatinine Ratio 6.8 (10.0-20.0); Bilirubin, Total 0.6 mg/dL (0.2-1.0); Calcium 8.9 mg/dL (8.7-10.4); Carbon Dioxide 26 mmol/L (20-31); Chloride 107 mmol/L (98-107); Potassium 3.8 mmol/L (3.5-5.1); Sodium 143 mmol/L (136-145); Total Protein 6.2 g/dL (5.7-8.2)
[2024-12-26 04:54] LABS: Alanine Aminotransferase < 9 U/L (7-40); Blood Urea Nitrogen 7 mg/dL (9-23); Glucose 128 mg/dL (74-106)
[2024-12-26] MEDS: HYDROcodone-ACET 5/325MG TAB PO PRN (08:02)
[2024-12-26 09:32] VITALS: BP 100/59; PULSE 59; RESP 17; TEMP 98.1; O2SAT 91
[2024-12-26] MEDS ORDERED: PATIENTS OWN MEDICATION (Simvastatin 1 TAB) PO SCH (10:00)
--- NOTE | 2024-12-26 10:19 | DVHINCON2 ---
Date of service: Dec 26, 2024 History of Present Illness HPI Patient is a 59-year-old female who presented with 1 week of lower abdominal pain which increases by walking. Does have history of uterine prolapse after cervical cancer surgery. Does have baseline history of coronary artery disease. Cardiology is involved for cardiac catheterization with self-care. Patient denies any recent chest pain/shortness of breath. Cardiac-harrison, the patient has been nonsymptomatic. Home Meds Active Scripts Sulfamethoxazole W/Trimethopri (Bactrim Ds Tablet) 1 Tab Tb, 1 TAB PO BID for 5 Days, #10 TAB Prov:TED HUSSEIN NP 12/03/24 Metronidazole (Flagyl) 500 Mg Tab, 500 MG PO TID for 14 Days, #42 TAB Prov:TAMI ROOTP 10/28/24 Hydrocodone-Acetaminophen (Hydrocodone Bitartrate/AC 5-325 mg) 1 Tab Tab, 1 TAB PO Q8HP PRN for 5 Days, #15 TAB Prov:SEAN ZEPEDA MD 09/30/24 Ranolazine (Ranolazine ER) 500 Mg Tab, 500 MG PO BID for 30 Days, #60 TAB Prov:TED HUSSEIN NP 07/30/24 Baclofen (Baclofen) 10 Mg Tab, 5 MG PO Q8HP PRN for 7 Days, #21 TAB Prov:TED HUSSEIN [employer]AFETY INSTRUCTOR 07/30/24 Isosorbide Mononitrate (Isosorbide Mononitrate Er) 30 Mg Tab, 1 TAB PO DAILY, #30 TAB 5 Refills Prov:TED HUSSEIN NP 07/30/24 Lidocaine (LIDODERM 5% TOPICAL PATCH) 1 Patch Ph, 1 PATCH TOP DAILY for 30 Days, #30 PATCH 0 Refills Prov:MIAN ROMO NP 06/02/24 Polyethylene Glycol 3350 (Miralax) 17 Gm Pow, 17 GM PO DAILY for 15 Days, #15 POW Prov:TED HUSSEIN NP 05/03/24 Albuterol Sulfate (Albuterol Sulfate Hfa) 108 Mcg/Act Aer, 108 MCG IN BID PRN for 10 Days, #1 AER 0 Refills Prov:LILI LUNSFORD DO 12/01/22 Reported Medications Docusate Sodium (Docusate Sodium) 100 Mg Cap, 1 CAP PO BID for 30 Days, #60 07/03/24 Simvastatin (Simvastatin) 20 Mg Tab, 1 TAB PO DAILY for 90 Days, #90 07/03/24 Hydrocodone-Acetaminophen (Hydrocodone Bitartrate/AC 10-325 mg) 1 Tab Tab, 1 TAB PO Q6HR PRN for CHRONIC PAIN for 30 Days, #120 07/03/24 Potassium Chloride (Potassium Chloride ER) 10 Meq Tab, 1 TAB PO BID for 90 Days, #180 07/03/24 Paroxetine Hydrochloride (Paroxetine Hydrochloride) 20 Mg Tab, 1 TAB PO DAILY for 90 Days, #90 05/01/24 Tirzepatide (Mounjaro) 7.5 Mg/0.5 Ml Inj, 7.5 MG SC QWEEKLY for 28 Days, #2 10/18/23 Sitagliptin Phosphate (Januvia) 100 Mg Tab, 1 TAB PO DAILY 10/18/23 Clopidogrel Bisulfate (CLOPIDOGREL) 75 Mg Tab, 1 TAB PO DAILY 10/18/23 Furosemide (Furosemide) 40 Mg Tab, 1 TAB PO BID 10/18/23 Atorvastatin Calcium (ATORVASTATIN CALCIUM) 20 Mg Tab, 1 TAB PO DAILY 10/17/23 Cholecalciferol (Vitamin D-3 Super Strengt) 2,000 Unit Tab, 1 TAB PO DAILY 10/17/23 Gabapentin (Gabapentin) 300 Mg Cap, 1 CAP PO Q8HR for NEUROPATHIC PAIN for 30 Days, #90 10/17/23 Aspirin (Aspirin Low Dose) 81 Mg Tab, 1 TAB PO DAILY 10/17/23 Balsalazide Disodium (Balsalazide Disodium) 750 Mg Cap, 3 CAP PO BID for 30 Days, #180 10/17/23 Past Medical History Others Past medical history includes coronary artery disease, diabetes mellitus, 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 She has had kidney stones/hydronephrosis/hydroureter before. Uses a walker for ambulation (secondary to old CVA). Patient was found to have multivessel coronary artery disease (left heart catheterization of July 09, 2024). On July 12 2024, the patient was sent to higher level of care ([facility]) for possible CABG surgery. Patient ended up having 1 stent in LAD and CABG was not performed. At next presentation, (still in July 2024) patient was sent back to [facility] and had another stent (this time in LCX). Reportedly the patient does have pinching of diagonals. Patient Family History: FH: breast cancer G8 SISTER FH: cancer FH: liver cancer G8 MOTHER, , Cause: Liver cancer Family history: Alzheimer's disease G8 MOTHER, , Cause: Liver cancer, Onset:Unknown Family history: Cardiovascular disease G8 FATHER, , Cause: CHF (congestive heart failure), Onset:Unknown Family history: Diabetes mellitus G8 BROTHER, Onset:Unknown Thyroid disease 19 CHILD Thyroid disease 19 CHILD Smoker: No Hx (Negative) Drugs: None Lives with: With family Review of Systems Constitutional: No symptom reported Pulmonary/Respiratory: No symptom reported Cardiovascular: No symptom reported Gastrointestinal: Abdominal Pain All Other Systems 14 point review of system was performed. Relevant findings as per above and as per HPI. Otherwise negative H&P Exam Vital Signs Vital Signs Date Time Temp Pulse Resp B/P (MAP) Pulse Ox O2 Delivery O2 Flow Rate FiO2 12/26/24 09:32 98.1 59 17 100/59 (73) 91 98.1 12/25/24 19:45 Room Air* 0 21 General Appeara: Well developed Head Exam: Normal inspection Eye Exam: bilateral eye PERRL Mouth: Normal Inspection Pulmonary/Respiratory: Lungs clear Cardiovascular/Chest: Regular rate Neuro/Mental St: Alert, Oriented Appearance: Appropriate appearance Eye contact/ Speech: Cooperative Labs/Xrays Labs Test 12/26/24 04:01 12/25/24 16:52 12/25/24 13:00 Range/Units White Blood Count 7.4 4.4-10.8 10^3/uL Red Blood Count 4.32 4.0-5.20 10^6/uL Hemoglobin 13.2 12.2-16.2 g/dL Hematocrit 39.3 # 36.0-46.0 % Mean Corpuscular Volume 90.9 80.0-100.0 fL Mean Corpuscular Hemoglobin 30.6 28.0-32.0 pg Mean Corpuscular Hemoglobin Concent 33.6 32.0-36.0 g/dL Red Cell Distribution Width 15.4 H 11.8-14.3 % Platelet Count 188 140-450 10^3/uL Mean Platelet Volume 8.4 6.9-10.8 fL Neutrophils (%) (Auto) 69.3 37.0-80.0 % Lymphocytes (%) (Auto) 21.6 10.0-50.0 % Monocytes (%) (Auto) 5.2 0.0-12.0 % Eosinophils (%) (Auto) 3.2 0.0-7.0 % Basophils (%) (Auto) 0.7 0.0-2.0 % Neutrophils # (Auto) 5.1 1.6-8.6 10 ^3/uL Lymphocytes # (Auto) 1.6 0.4-5.4 10 ^3/uL Monocytes # (Auto) 0.4 0-1.3 10 ^3/uL Eosinophils # (Auto) 0.2 0-0.8 10 ^3/uL Basophils # (Auto) 0.1 0-0.2 10 ^3/uL Nucleated Red Blood Cells 0.1 % Sodium Level 143 136-145 mmol/L Potassium Level 3.8 3.5-5.1 mmol/L Chloride Level 107 98-107 mmol/L Carbon Dioxide Level 26 20-31 mmol/L Anion Gap 10 5-15 Blood Urea Nitrogen 7 L 9-23 mg/dL Creatinine 1.03 H 0.550-1.02 mg/dL Glomerular Filtration Rate Calc 62 >90 mL/min BUN/Creatinine Ratio 6.8 L 10.0-20.0 Serum Glucose 128 H 74-106 mg/dL Calcium Level 8.9 8.7-10.4 mg/dL Total Bilirubin 0.6 0.2-1.0 mg/dL Aspartate Amino Transferase (AST) 13 13-40 U/L Alanine Aminotransferase (ALT) < 9 7-40 U/L Alkaline Phosphatase 102 46-116 U/L Total Protein 6.2 5.7-8.2 g/dL Albumin 4.0 3.2-4.8 g/dL Lactic Acid Level 1.7 0.4-2.0 mmol/L Urine Color Yellow Yellow Urine Clarity Cloudy H Clear Urine pH 5.5 5.0-9.0 Urine Specific [place] 1.022 1.001-1.035 Urine Protein 1+ H Negative Urine Ketones Negative Negative Urine Blood 2+ H Negative /uL Urine Nitrite Negative Negative Urine Bilirubin Negative Negative Urine Urobilinogen Normal Negative mg/dL Urine Leukocyte Esterase 2+ Negative /uL Urine RBC 66 0 - 4 /hpf Urine Microscopic WBC 262 H 0-5 /HPF Urine Squamous Epithelial Cells Few <5 /hpf Urine Bacteria None seen None Seen /hpf Urine Hyaline Casts Few 0 - 2 /lpf Urine Mucus Few None Seen Urine Yeast (Budding) Occasional None Seen /hpf Urine Glucose 1+ H Normal mg/dL Assessment/Plan Plan Patient is a 59-year-old female who presented with 1 week of lower abdominal pain which increases by walking. Does have history of uterine prolapse after cervical cancer surgery. Does have baseline history of coronary artery disease. Cardiology is involved for cardiac catheterization with self-care. Patient denies any recent chest pain/shortness of breath. Cardiac-harrison, the patient has been nonsymptomatic. During earlier admission in June/2024, the patient did have some chest pain with abnormal troponin and was found to have non-STEMI. Cardiac catheterization at that point revealed multivessel coronary artery disease and the patient was sent to [facility] for the suggested CABG surgery. It seems that in [facility] they did not do the CABG and the patient had only 1 stent. Later the patient was discharged home from [facility]. In the middle of July patient came back with chest discomfort to our facility and with diagnosis of unstable angina was sent back to [facility]. In [facility], the patient again had another stent. I had an opportunity to talk to the perinatal coordinator in [facility]. It seems that during the 1st admission to [facility], they did put 1 stent in LAD. During the 2nd admission they put another stent in circumflex. It is of note that the patient did have LAD with trifurcation with disease in all of them. Reportedly (as per perinatal coordinator in [facility]) LAD stent has resulted in pinching of the diagonals. Patient mentions compliance with aspirin/Plavix. Patient also has history of inflammatory bowel disease/ulcerative colitis/Crohn disease. She also has diverticular disease. She repeatedly presents with abdominal pain. Not in acute distress. No JVD. Mucosa is pink and dry. No carotid bruit. Lungs are clear to auscultation. Not using accessory muscles of breathing. Cardiac: Regular, no thrills/gallop. Abdomen is soft. Lower abdominal tenderness can be elicited. There is no rebound. Bowel sound is positive There was no gross mass/hepatomegaly. Extremities do not reveal edema. Dorsalis pedis is 2+ bilateral. 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 She has had kidney stones/hydronephrosis/hydroureter before. Uses a walker for ambulation (secondary to old CVA). Patient was found to have multivessel coronary artery disease (left heart catheterization of July 09, 2024). On July 12 2024, the patient was sent to higher level of care ([facility]) for possible CABG surgery. Patient ended up having 1 stent in LAD and CABG was not performed. At next presentation, (still in July 2024) patient was sent back to [facility] and had another stent (this time in LCX). Reportedly the patient does have pinching of diagonals. Echocardiogram of December 16, 2022 (performed in [facility]) revealed ejection fraction of 60%, mild TR and right ventricular systolic pressure of 27 mm Hg. Echocardiogram of October 18, 2023 reported ejection fraction 55-60%, mild MR/TR and right ventricular systolic pressure of 25 mm Echocardiogram of May 05, 2024 revealed ejection fraction of 50-55%, normal diastolic, trace MR/TR and right ventricular systolic pressure of 28 mm Hg Echocardiogram of July 05, 2024 had revealed ejection fraction of 40%, trace MR/TR and right ventricular systolic pressure of 30 mm Hg Echocardiogram of July 29, 2024 revealed ejection fraction of 50-55%, no wall motion abnormality, trace mitral regurgitation, no tricuspid regurgitation. As there was no good tricuspid regurgitation jet, right ventricular systolic pressure could not be estimated Echocardiogram of November 12, 2024 revealed: LVEF of 60%, no wall motion abnormality. Trace mitral/tricuspid regurgitation. Right ventricular systolic pressure of 28 mm Hg Nuclear stress test of January 03, 2022 (performed as outpatient) revealed ejection fraction of 80% and no evidence for ischemia/scar. Left heart catheterization of July 09 2024 had revealed triple-vessel coronary artery disease WBC: 7.8 - 7.4 Creatinine: 1.19 - 1.03 Potassium: 3.6 - 3.8 CT of the abdomen and pelvis revealed: Impression: 1. No acute abdominopelvic abnormalities. 2. Diverticulosis without evidence of acute diverticulitis. 3. Left lower abdominal wall subcutaneous stranding, nonspecific. Correlate with history. Tele reveals sinus rhythm Patient is a 59-year-old female who presents with abdominal pain. Does have history of coronary artery disease. Presentation is not considered cardiac ca theterization this point. Has had repeated ischemic workups. Is on dual antiplatelet therapy. Acute coronary syndrome is not considered at this point. Did have non-STEMI in early July. Was sent to [facility] for possible CABG as she was found to have multivessel coronary artery disease. Instead of CABG the patient was given 1 stent (in LAD which resulted in pinching of diagonals). During the next presentation, (still in July 2024) the patient was sent back to [facility] and ended up having another stent, this time in LCX. To continue aspirin/Plavix. Patient was counseled to be compliant with medication and followups. Abdominal pain Coronary artery disease, history of Triple-vessel coronary artery disease Status post PCI (drug-eluting stent deployment of LAD and LCX).. History of old CVA with left hemiparesis History of Crohn disease/ulcerative colitis Inflammatory Bowel Disease Constipation Hyperlipidemia Status post carotid endarterectomy Diverticular disease, history of Noncompliance with medication and followups Renal Calculi Uterine Leiomyoma Left anterior abdominal wall soft tissue mass/neoplasm Cardiac suggestion for management: Manage in tele Follow-up electrolytes and kidney function tests and correct abnormalities. Keep potassium above 4 and magnesium above 2 Imdur, long-actin mg daily Ranolazine: 500 mg p.o. b.i.d. Diltiazem-ER: 120 mg daily Continue ASA/Plavix Cardiac harrison, nonsymptomatic Consider GI evaluation Lifestyle and risk factor modification is advised A total of 75 minutes was spent reviewing the patient record, examining the patient, making a diagnostic and therapeutic plan, discussing this plan with medical personnel, following up on diagnostic studies and following the patient for clinical stability excluding any and all procedures. At least 50% of this time was spent in direct, [id number] contact. Thank you for allowing me to participate in this patient's care. Further recommendations will depend on patient's clinical course. Please do not hesitate to contact me if you have any questions or concerns. This medical document was created using electronic medical record system with Kik computerized dictation system. Although this document has been carefully reviewed, there may still be some phonetic and typographical errors. These areas are purely typographical due to the imperfection of the software programs, and do not reflect any compromise in the patient's medical care Plan discussed with: Patient, Other (nurse) BALTAZAR SOMMERS MD Dec 26, 2024 10:19
[2024-12-26] MEDS: CLOPIDOGREL BISULFATE 75 MG TAB PO SCH (10:56)
[2024-12-26] MEDS: CHOLECALCIFEROL (VITD3) 1,000UNIT=25mCg TAB PO SCH (10:56)
[2024-12-26] MEDS: PARoxetine 20 MG TAB PO SCH (10:57)
[2024-12-26] MEDS: ASPirin-EC 81 mg tab PO SCH (10:57)
[2024-12-26] MEDS: ISOSORBIDE MONONITRATE ER 60 MG TAB PO SCH (11:01)
[2024-12-26] MEDS: Sitagliptin Phosphate (Januvia) 100MG TABLET PO SCH (11:03)
[2024-12-26] MEDS: dilTIAZem 120MG ER CAP PO ONE (11:45)
[2024-12-26 12:53] VITALS: BP 92/47; PULSE 69; RESP 17; TEMP 98.2; O2SAT 91
[2024-12-26 13:20] VITALS: RESP 16
--- NOTE | 2024-12-26 13:48 | DVHPN2 ---
Progress Note - Dictate vital signs Vital Sign Date Time Temp Pulse Resp B/P (MAP) Pulse Ox O2 Delivery O2 Flow Rate FiO2 12/26/24 12:53 98.2 69 17 92/47 (62) 91 98.2 12/25/24 19:45 Room Air* 0 21 medications Current Medications Medications Dose Ordered Sig/Damon Route Start Time Stop Time Status Last Admin Dose Admin Acetaminophen/ Hydrocodone Bitart 1 tab Q4HP PRN PO 12/25/24 17:45 12/26/24 08:02 1 TAB Temazepam 15 mg QHSP PRN PO 12/25/24 17:45 Ondansetron HCl 4 mg Q4HP PRN IV 12/25/24 17:45 Docusate Sodium 100 mg BIDPRN PRN PO 12/25/24 17:45 UNV Acetaminophen 650 mg Q6HP PRN PO 12/25/24 17:45 Morphine Sulfate 2 mg Q4HPRN PRN IV 12/25/24 17:45 12/26/24 11:02 2 MG Nitroglycerin 0.4 mg Q5MINP PRN SL 12/25/24 17:45 Morphine Sulfate 2 mg Q30M PRN IV 12/25/24 17:45 Aspirin 81 mg DAILY PO 12/26/24 10:00 12/26/24 10:57 81 MG Atorvastatin Calcium 20 mg HS PO 12/26/24 22:00 Clopidogrel Bisulfate 75 mg DAILY PO 12/26/24 10:00 12/26/24 10:56 75 MG Docusate Sodium 100 mg BID PO 12/25/24 22:00 12/26/24 10:56 100 MG Gabapentin 300 mg Q8HR PO 12/25/24 22:00 12/26/24 05:51 300 MG Paroxetine HCl 20 mg DAILY PO 12/26/24 10:00 12/26/24 10:57 20 MG Ranolazine 500 mg BID PO 12/25/24 22:00 12/26/24 10:57 500 MG Cholecalciferol 2,000 unit DAILY PO 12/26/24 10:00 12/26/24 10:56 2,000 UNIT Isosorbide Mononitrate 30 mg DAILY PO 12/26/24 10:00 12/26/24 11:01 30 MG Patient Own Medication 1 tab DAILY PO 12/26/24 10:00 Diltiazem HCl 120 mg DAILY PO 12/27/24 10:00 laboratory and microbiology Laboratory Tests 12/26/24 04:01 Test 12/26/24 04:01 Range/Units Serum Glucose 128 H 74-106 mg/dL TED HUSSEIN NP Dec 26, 2024 13:48
--- NOTE | 2024-12-26 13:53 | DVHPN2 ---
Progress Note - Dictate Date Seen: Dec 26, 2024 Medical Necessity Reason Pt with a Central, PICC or Fol: No vital signs Vital Sign Date Time Temp Pulse Resp B/P (MAP) Pulse Ox O2 Delivery O2 Flow Rate FiO2 12/26/24 12:53 98.2 69 17 92/47 (62) 91 98.2 12/25/24 19:45 Room Air* 0 21 medications Current Medications Medications Dose Ordered Sig/Damon Route Start Time Stop Time Status Last Admin Dose Admin Acetaminophen/ Hydrocodone Bitart 1 tab Q4HP PRN PO 12/25/24 17:45 12/26/24 08:02 1 TAB Temazepam 15 mg QHSP PRN PO 12/25/24 17:45 Ondansetron HCl 4 mg Q4HP PRN IV 12/25/24 17:45 Docusate Sodium 100 mg BIDPRN PRN PO 12/25/24 17:45 UNV Acetaminophen 650 mg Q6HP PRN PO 12/25/24 17:45 Morphine Sulfate 2 mg Q4HPRN PRN IV 12/25/24 17:45 12/26/24 11:02 2 MG Nitroglycerin 0.4 mg Q5MINP PRN SL 12/25/24 17:45 Morphine Sulfate 2 mg Q30M PRN IV 12/25/24 17:45 Aspirin 81 mg DAILY PO 12/26/24 10:00 12/26/24 10:57 81 MG Atorvastatin Calcium 20 mg HS PO 12/26/24 22:00 Clopidogrel Bisulfate 75 mg DAILY PO 12/26/24 10:00 12/26/24 10:56 75 MG Docusate Sodium 100 mg BID PO 12/25/24 22:00 12/26/24 10:56 100 MG Gabapentin 300 mg Q8HR PO 12/25/24 22:00 12/26/24 05:51 300 MG Paroxetine HCl 20 mg DAILY PO 12/26/24 10:00 12/26/24 10:57 20 MG Ranolazine 500 mg BID PO 12/25/24 22:00 12/26/24 10:57 500 MG Cholecalciferol 2,000 unit DAILY PO 12/26/24 10:00 12/26/24 10:56 2,000 UNIT Isosorbide Mononitrate 30 mg DAILY PO 12/26/24 10:00 12/26/24 11:01 30 MG Patient Own Medication 1 tab DAILY PO 12/26/24 10:00 Diltiazem HCl 120 mg DAILY PO 12/27/24 10:00 objective General Appearance: alert, no distress HEENT: EOMI, PERRLA, normal external inspect of ears, no icterus, no nasal drainage Neck: no carotid bruit, no jugular venous distention (JVD), no lymphadenopathy Chest: normal thorax Respiratory: clear to auscultation, normal air movement Cardiovascular: regular rate and rhythm, no diastolic murmur, no jugular venous distention (JVD), no rub, no systolic murmur Abdominal: soft, no hepatomegaly, no mass, no splenomegaly, no tenderness Genitourinary: grossly normal external Musculoskeletal: no joint tenderness, no swelling Extremities: normal pulses, no calf tenderness, no clubbing, no cyanosis, no edema Skin: no bruising, no jaundice, no rash Neurological: alert, No focal deficit laboratory and microbiology Laboratory Tests 12/26/24 04:01 Test 12/26/24 04:01 Range/Units Serum Glucose 128 H 74-106 mg/dL Problem List 1. CAD Stent Monitor EKG, cardiology consult 2. Obesity Monitor 3. DM II & Neuropathy Monitor, insulin ss 4. Acute cystitis Monitor, IV abx 5. Hx of ESBL urine Monitor 6. Chronic diastolic HF Monitor EKG, cardiology consult, continue diuretics 7. Hx of CVA with residual deficits Monitor Assessment/Plan Subjective: Patient is awake and alert. Objective: Patient still has some abdominal pain. She reports a history of vaginal prolapse, though nothing is protruding at this time. She has a recurrent UTI and a history of CAD with 2 stents. Plan: Monitor on EKG. Continue medications and antibiotics. Continue as-needed pain medication. Recommend outpatient follow-up with [employer] for vaginal prolapse. Plan discussed with: Patient, Other TED HUSSEIN NP Dec 26, 2024 13:53
[2024-12-26] MEDS: CEFEPIME 1GM/50ML 50 ML IV SCH (16:51)
[2024-12-26 17:15] VITALS: BP 92/52; PULSE 75; RESP 16; TEMP 98.2; O2SAT 93
[2024-12-26 18:20] VITALS: BP 107/76; PULSE 78; TEMP 98.7; O2SAT 96
[2024-12-26 20:45] VITALS: BP 101/65; PULSE 69; RESP 18; TEMP 98.1; O2SAT 94
[2024-12-26] MEDS: ATORVASTATIN 20 MG TAB PO SCH (21:33)
[2024-12-26] MEDS: TEMAZEPAM 15 MG CAP PO PRN (21:33)
[2024-12-27] VITALS (8 sets, daily range): BP systolic 90–120; BP diastolic 57–76; PULSE 67–76; RESP 17–20; TEMP 97.6–98.4; O2SAT 93–98
--- NOTE | 2024-12-27 07:16 | DVHPN2 ---
Progress Note - Dictate Date Seen: Dec 27, 2024 Medical Necessity Reason Pt with a Central, PICC or Fol: No vital signs Vital Sign Date Time Temp Pulse Resp B/P (MAP) Pulse Ox O2 Delivery O2 Flow Rate FiO2 12/27/24 05:13 68 18 118/60 12/27/24 05:00 98.4 93 98.4 12/26/24 13:20 Room Air* 0 96 21 Total Intake and Output 12/26/24 12/26/24 12/27/24 15:00 23:00 07:00 Intake Total 200 ml Balance 200 ml medications Current Medications Medications Dose Ordered Sig/Damon Route Start Time Stop Time Status Last Admin Dose Admin Acetaminophen/ Hydrocodone Bitart 1 tab Q4HP PRN PO 12/25/24 17:45 12/26/24 21:33 1 TAB Temazepam 15 mg QHSP PRN PO 12/25/24 17:45 12/26/24 21:33 15 MG Ondansetron HCl 4 mg Q4HP PRN IV 12/25/24 17:45 Docusate Sodium 100 mg BIDPRN PRN PO 12/25/24 17:45 UNV Acetaminophen 650 mg Q6HP PRN PO 12/25/24 17:45 Morphine Sulfate 2 mg Q4HPRN PRN IV 12/25/24 17:45 12/27/24 04:43 2 MG Nitroglycerin 0.4 mg Q5MINP PRN SL 12/25/24 17:45 Morphine Sulfate 2 mg Q30M PRN IV 12/25/24 17:45 Aspirin 81 mg DAILY PO 12/26/24 10:00 12/26/24 10:57 81 MG Atorvastatin Calcium 20 mg HS PO 12/26/24 22:00 12/26/24 21:33 20 MG Clopidogrel Bisulfate 75 mg DAILY PO 12/26/24 10:00 12/26/24 10:56 75 MG Docusate Sodium 100 mg BID PO 12/25/24 22:00 12/26/24 21:30 100 MG Gabapentin 300 mg Q8HR PO 12/25/24 22:00 12/27/24 05:41 300 MG Paroxetine HCl 20 mg DAILY PO 12/26/24 10:00 12/26/24 10:57 20 MG Ranolazine 500 mg BID PO 12/25/24 22:00 12/26/24 21:31 500 MG Cholecalciferol 2,000 unit DAILY PO 12/26/24 10:00 12/26/24 10:56 2,000 UNIT Isosorbide Mononitrate 30 mg DAILY PO 12/26/24 10:00 12/26/24 11:01 30 MG Patient Own Medication 1 tab DAILY PO 12/26/24 10:00 Diltiazem HCl 120 mg DAILY PO 12/27/24 10:00 Cefepime HCl 50 ml @ 12.5 mls/hr Q12HR IV 12/26/24 14:00 12/26/24 21:33 12.5 MLS/HR objective General Appearance: alert, no distress HEENT: EOMI, PERRLA, normal external inspect of ears, no icterus, no nasal drainage Neck: no carotid bruit, no jugular venous distention (JVD), no lymphadenopathy Chest: normal thorax Respiratory: clear to auscultation, normal air movement Cardiovascular: regular rate and rhythm, no diastolic murmur, no jugular venous distention (JVD), no rub, no systolic murmur Abdominal: soft, no hepatomegaly, no mass, no splenomegaly, no tenderness Genitourinary: grossly normal external Musculoskeletal: no joint tenderness, no swelling Extremities: normal pulses, no calf tenderness, no clubbing, no cyanosis, no edema Skin: no bruising, no jaundice, no rash Neurological: alert, No focal deficit laboratory and microbiology Laboratory Tests 12/26/24 04:01 Test 12/26/24 04:01 Range/Units Serum Glucose 128 H 74-106 mg/dL Problem List 1. CAD Stent Monitor EKG, cardiology consult 2. Obesity Monitor 3. DM II & Neuropathy Monitor, insulin ss 4. Acute cystitis Monitor, IV abx 5. Hx of ESBL urine Monitor 6. Chronic diastolic HF Monitor EKG, cardiology consult, continue diuretics 7. Hx of CVA with residual deficits Monitor Assessment/Plan Subjective: Patient is awake and alert. Objective: Patient still complaining of abdominal pain. Patient will follow-up patient with [facility] for vaginal prolapse. Patient has recent cardiac stents. Will need to get cardiac clearance after evaluation outpatient from [facility]. CT of the abdomen and pelvis has no acute findings. Patient denies anything hanging out of her vagina at this time. She is now complaining of constipation however patient complained of diarrhea yesterday. Plan: Continue current treatment. Continue home medications. Continue as needed pain medications. Start cathartics for constipation. Plan discussed with: Patient, Other TED HUSSEIN ASSOCIATE CIVIL ENGINEER Dec 27, 2024 07:16
--- NOTE | 2024-12-27 08:11 | DVHPN2 ---
Progress Note - Dictate Date Seen: Dec 27, 2024 Medical Necessity Reason Pt with a Central, PICC or Fol: No vital signs Vital Sign Date Time Temp Pulse Resp B/P (MAP) Pulse Ox O2 Delivery O2 Flow Rate FiO2 12/27/24 05:13 68 18 118/60 12/27/24 05:00 98.4 93 98.4 12/26/24 13:20 Room Air* 0 96 21 Total Intake and Output 12/26/24 12/26/24 12/27/24 15:00 23:00 07:00 Intake Total 200 ml Balance 200 ml medications Current Medications Medications Dose Ordered Sig/Damon Route Start Time Stop Time Status Last Admin Dose Admin Acetaminophen/ Hydrocodone Bitart 1 tab Q4HP PRN PO 12/25/24 17:45 12/26/24 21:33 1 TAB Temazepam 15 mg QHSP PRN PO 12/25/24 17:45 12/26/24 21:33 15 MG Ondansetron HCl 4 mg Q4HP PRN IV 12/25/24 17:45 Docusate Sodium 100 mg BIDPRN PRN PO 12/25/24 17:45 UNV Acetaminophen 650 mg Q6HP PRN PO 12/25/24 17:45 Morphine Sulfate 2 mg Q4HPRN PRN IV 12/25/24 17:45 12/27/24 04:43 2 MG Nitroglycerin 0.4 mg Q5MINP PRN SL 12/25/24 17:45 Morphine Sulfate 2 mg Q30M PRN IV 12/25/24 17:45 Aspirin 81 mg DAILY PO 12/26/24 10:00 12/26/24 10:57 81 MG Atorvastatin Calcium 20 mg HS PO 12/26/24 22:00 12/26/24 21:33 20 MG Clopidogrel Bisulfate 75 mg DAILY PO 12/26/24 10:00 12/26/24 10:56 75 MG Docusate Sodium 100 mg BID PO 12/25/24 22:00 12/26/24 21:30 100 MG Gabapentin 300 mg Q8HR PO 12/25/24 22:00 12/27/24 05:41 300 MG Paroxetine HCl 20 mg DAILY PO 12/26/24 10:00 12/26/24 10:57 20 MG Ranolazine 500 mg BID PO 12/25/24 22:00 12/26/24 21:31 500 MG Cholecalciferol 2,000 unit DAILY PO 12/26/24 10:00 12/26/24 10:56 2,000 UNIT Isosorbide Mononitrate 30 mg DAILY PO 12/26/24 10:00 12/26/24 11:01 30 MG Patient Own Medication 1 tab DAILY PO 12/26/24 10:00 Diltiazem HCl 120 mg DAILY PO 12/27/24 10:00 Cefepime HCl 50 ml @ 12.5 mls/hr Q12HR IV 12/26/24 14:00 12/26/24 21:33 12.5 MLS/HR laboratory and microbiology Laboratory Tests 12/26/24 04:01 Test 12/26/24 04:01 Range/Units Serum Glucose 128 H 74-106 mg/dL Assessment/Plan Patient is a 59-year-old female who presented with 1 week of lower abdominal pain which increases by walking. Does have history of uterine prolapse after cervical cancer surgery. Does have baseline history of coronary artery disease. Cardiology is involved for cardiac catheterization with self-care. Patient denies any recent chest pain/shortness of breath. Cardiac-harrison, the patient has been nonsymptomatic. During earlier admission in June/2024, the patient did have some chest pain with abnormal troponin and was found to have non-STEMI. Cardiac catheterization at that point revealed multivessel coronary artery disease and the patient was sent to [facility] for the suggested CABG surgery. It seems that in [facility] they did not do the CABG and the patient had only 1 stent. Later the patient was discharged home from [facility]. In the middle of July patient came back with chest discomfort to our facility and with diagnosis of unstable angina was sent back to [facility]. In [place], the patient again had another stent. I had an opportunity to talk to the revenue liaison in [facility]. It seems that during the 1st admission to [facility], they did put 1 stent in LAD. During the 2nd admission they put another stent in circumflex. It is of note that the patient did have LAD with trifurcation with disease in all of them. Reportedly (as per revenue liaison in [facility]) LAD stent has resulted in pinching of the diagonals. Patient mentions compliance with aspirin/Plavix. Patient also has history of inflammatory bowel disease/ulcerative colitis/Crohn disease. She also has diverticular disease. She repeatedly presents with abdominal pain. Not in acute distress. No JVD. Mucosa is pink and dry. No carotid bruit. Lungs are clear to auscultation. Not using accessory muscles of breathing. Cardiac: Regular, no thrills/gallop. Abdomen is soft. Lower abdominal tenderness can be elicited. There is no rebound. Bowel sound is positive There was no gross mass/hepatomegaly. Extremities do not reveal edema. Dorsalis pedis is 2+ bilateral. 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 She has had kidney stones/hydronephrosis/hydroureter before. Uses a walker for ambulation (secondary to old CVA). Patient was found to have multivessel coronary artery disease (left heart catheterization of July 09, 2024). On July 12 2024, the patient was sent to higher level of care ([facility]) for possible CABG surgery. Patient ended up having 1 stent in LAD and CABG was not performed. At next presentation, (still in July 2024) patient was sent back to [facility] and had another stent (this time in LCX). Reportedly the patient does have pinching of diagonals. Echocardiogram of December 16, 2022 (performed in [facility]) revealed ejection fraction of 60%, mild TR and right ventricular systolic pressure of 27 mm Hg. Echocardiogram of October 18, 2023 reported ejection fraction 55-60%, mild MR/TR and right ventricular systolic pressure of 25 mm Echocardiogram of May 05, 2024 revealed ejection fraction of 50-55%, normal diastolic, trace MR/TR and right ventricular systolic pressure of 28 mm Hg Echocardiogram of July 05, 2024 had revealed ejection fraction of 40%, trace MR/TR and right ventricular systolic pressure of 30 mm Hg Echocardiogram of July 29, 2024 revealed ejection fraction of 50-55%, no wall motion abnormality, trace mitral regurgitation, no tricuspid regurgitation. As there was no good tricuspid regurgitation jet, right ventricular systolic pressure could not be estimated Echocardiogram of November 12, 2024 revealed: LVEF of 60%, no wall motion abnormality. Trace mitral/tricuspid regurgitation. Right ventricular systolic pressure of 28 mm Hg Nuclear stress test of January 03, 2022 (performed as outpatient) revealed ejection fraction of 80% and no evidence for ischemia/scar. Left heart catheterization of July 09 2024 had revealed triple-vessel coronary artery disease WBC: 7.8 - 7.4 Creatinine: 1.19 - 1.03 Potassium: 3.6 - 3.8 CT of the abdomen and pelvis revealed: Impression: 1. No acute abdominopelvic abnormalities. 2. Diverticulosis without evidence of acute diverticulitis. 3. Left lower abdominal wall subcutaneous stranding, nonspecific. Correlate with history. Tele reveals sinus rhythm Patient is a 59-year-old female who presents with abdominal pain. Does have history of coronary artery disease. Presentation is not considered cardiac catheterization this point. Has had repeated ischemic workups. Is on dual antiplatelet therapy. Acute coronary syndrome is not considered at this point. Did have non-STEMI in early July. Was sent to [facility] for possible CABG as she was found to have multivessel coronary artery disease. Instead of CABG the patient was given 1 stent (in LAD which resulted in pinching of diagonals). During the next presentation, (still in July 2024) the patient was sent back to [facility] and ended up having another stent, this time in LCX. To continue aspirin/Plavix. Patient was counseled to be compliant with medication and followups. Abdominal pain Coronary artery disease, history of Triple-vessel coronary artery disease Status post PCI (drug-eluting stent deployment of LAD and LCX).. History of old CVA with left hemiparesis History of Crohn disease/ulcerative colitis Inflammatory Bowel Disease Constipation Hyperlipidemia Status post carotid endarterectomy Diverticular disease, history of Noncompliance with medication and followups Renal Calculi Uterine Leiomyoma Left anterior abdominal wall soft tissue mass/neoplasm Cardiac suggestion for management: Manage in tele Follow-up electrolytes and kidney function tests and correct abnormalities. Keep potassium above 4 and magnesium above 2 Imdur, long-actin mg daily Ranolazine: 500 mg p.o. b.i.d. Diltiazem-ER: 120 mg daily Continue ASA/Plavix Cardiac harrison, nonsymptomatic Consider GI evaluation Lifestyle and risk factor modification is advised A total of 55 minutes was spent reviewing the patient record, examining the patient, making a diagnostic and therapeutic plan, discussing this plan with medical personnel, following up on diagnostic studies and following the patient for clinical stability excluding any and all procedures. At least 50% of this time was spent in direct, [id number] contact. Thank you for allowing me to participate in this patient's care. Further recommendations will depend on patient's clinical course. Please do not hesitate to contact me if you have any questions or concerns. This medical document was created using electronic medical record system with [employer] computerized dictation system. Although this document has been carefully reviewed, there may still be some phonetic and typographical errors. These areas are purely typographical due to the imperfection of the software programs, and do not reflect any compromise in the patient's medical care Plan discussed with: Patient, Other (nurse) BALTAZAR SOMMERS MD Dec 27, 2024 08:11
[2024-12-27] MEDS: dilTIAZem 120MG ER CAP PO SCH (10:39)
[2024-12-28 01:00] VITALS: BP 108/58; PULSE 78; RESP 20; TEMP 98; O2SAT 92
[2024-12-28 05:00] VITALS: BP 96/50; PULSE 68; RESP 20; TEMP 97.5; O2SAT 92
[2024-12-28 08:00] VITALS: PULSE 63
[2024-12-28 08:07] VITALS: PULSE 68; RESP 20; O2SAT 94
[2024-12-28 08:57] VITALS: BP 97/52; PULSE 68; RESP 20; TEMP 98.3; O2SAT 94
[2024-12-28 12:26] VITALS: BP 91/54; PULSE 69; RESP 20; TEMP 98.1; O2SAT 93
[2024-12-28] MEDS ORDERED: DEXTROSE (50%) 50ML SYRG IV PRN (13:45)
[2024-12-28] MEDS ORDERED: METR-344 PO (13:52)
--- NOTE | 2024-12-28 13:54 | DVHDS2 ---
Discharge Summary Date of Admission Dec 25, 2024 at 17:35 Date of Discharge: Dec 28, 2024 Labs/Diagnostic Data: Laboratory Results Test 12/26/24 04:01 12/25/24 16:52 12/25/24 13:00 White Blood Count 7.4 10^3/uL (4.4-10.8) Red Blood Count 4.32 10^6/uL (4.0-5.20) Hemoglobin 13.2 g/dL (12.2-16.2) Hematocrit 39.3 % (36.0-46.0) Mean Corpuscular Volume 90.9 fL (80.0-100.0) Mean Corpuscular Hemoglobin 30.6 pg (28.0-32.0) Mean Corpuscular Hemoglobin Concent 33.6 g/dL (32.0-36.0) Red Cell Distribution Width 15.4 % (11.8-14.3) Platelet Count 188 10^3/uL (140-450) Mean Platelet Volume 8.4 fL (6.9-10.8) Neutrophils (%) (Auto) 69.3 % (37.0-80.0) Lymphocytes (%) (Auto) 21.6 % (10.0-50.0) Monocytes (%) (Auto) 5.2 % (0.0-12.0) Eosinophils (%) (Auto) 3.2 % (0.0-7.0) Basophils (%) (Auto) 0.7 % (0.0-2.0) Neutrophils # (Auto) 5.1 10 ^3/uL (1.6-8.6) Lymphocytes # (Auto) 1.6 10 ^3/uL (0.4-5.4) Monocytes # (Auto) 0.4 10 ^3/uL (0-1.3) Eosinophils # (Auto) 0.2 10 ^3/uL (0-0.8) Basophils # (Auto) 0.1 10 ^3/uL (0-0.2) Nucleated Red Blood Cells 0.1 % Sodium Level 143 mmol/L (136-145) Potassium Level 3.8 mmol/L (3.5-5.1) Chloride Level 107 mmol/L (98-107) Carbon Dioxide Level 26 mmol/L (20-31) Anion Gap 10 (5-15) Blood Urea Nitrogen 7 mg/dL (9-23) Creatinine 1.03 mg/dL (0.550-1.02) Glomerular Filtration Rate Calc 62 mL/min (>90) BUN/Creatinine Ratio 6.8 (10.0-20.0) Serum Glucose 128 mg/dL (74-106) Calcium Level 8.9 mg/dL (8.7-10.4) Total Bilirubin 0.6 mg/dL (0.2-1.0) Aspartate Amino Transferase (AST) 13 U/L (13-40) Alanine Aminotransferase (ALT) < 9 U/L (7-40) Alkaline Phosphatase 102 U/L (46-116) Total Protein 6.2 g/dL (5.7-8.2) Albumin 4.0 g/dL (3.2-4.8) Lactic Acid Level 1.7 mmol/L (0.4-2.0) Urine Color Yellow (Yellow) Urine Clarity Cloudy (Clear) Urine pH 5.5 (5.0-9.0) Urine Specific [place] 1.022 (1.001-1.035) Urine Protein 1+ (Negative) Urine Ketones Negative (Negative) Urine Blood 2+ /uL (Negative) Urine Nitrite Negative (Negative) Urine Bilirubin Negative (Negative) Urine Urobilinogen Normal mg/dL (Negative) Urine Leukocyte Esterase 2+ /uL (Negative) Urine RBC 66 /hpf (0 - 4) Urine Microscopic WBC 262 /HPF (0-5) Urine Squamous Epithelial Cells Few /hpf (<5) Urine Bacteria None seen /hpf (None Seen) Urine Hyaline Casts Few /lpf (0 - 2) Urine Mucus Few (None Seen) Urine Yeast (Budding) Occasional /hpf (None Urine Glucose 1+ mg/dL (Normal) Other Laboratory Tests 12/26/24 04:01 Brief Hx & Hospital Course: 59 yo female with hx of uterine prolapse and cervical cancer c/o suprapubic abdominal pain that worsens with ambulation. Sts that she "feels like something is falling out". Patient was admitted on 12/25/2024 for abdominal pain. Patient has a reported history of vaginal prolapse, however this is a chronic issue. Currently not a candidate for surgery due to being on chronic anticoagulation due to 2 recent stents placed by Alejandra Huizar. She will follow-up outpatient with [employer] if needed. Patient's abdominal pain most likely is related to chronic GERD. CT imaging was done and no acute findings were found. No diverticulitis. Patient most likely had GERD and gastritis. Flagyl was sent to pharmacy. She will follow-up with Dr. Casas in 1 week. The patient received proper medical treatment and medications. Vital signs, Imaging and Laboratory Work was monitored daily. All consults recommendations were followed as provided. There were no complaints or new complaints upon discharge, all questions and concerns were answered. Patient was advised to return to the ER or call 911 if any headaches, dizziness, shortness of breath, chest pain, bleeding, fevers, or worsening of medical condition. Patient/Family was counseled about treatment plan, medications, possible side effects, patient verbalized understanding. All questions were answered to the best of my ability. The patient symptoms improved and they are okay to be DC. Condition at Discharge: Stable Final Diagnosis/Problems List CAD Stent Obesity DM II & Neuropathy Acute cystitis Hx of ESBL urine Chronic diastolic CHF Abd pain - gastritis OUTPT REFERRAL TO OBGYN FOR EVAL Discharge Disposition: Home Discharge Instruct/Medications Diet: Consistent carbohydrate, Cardiac 2g Na,low cholest Activity: No Restrictions, As Tolerated Scheduled Aspirin (Aspirin Low Dose), 1 TAB PO DAILY, (Reported) Atorvastatin Calcium (Atorvastatin Calcium), 1 TAB PO DAILY, (Reported) Balsalazide Disodium (Balsalazide Disodium), 3 CAP PO BID, (Reported) Cholecalciferol (Vitamin D-3 Super Strengt), 1 TAB PO DAILY, (Reported) Clopidogrel Bisulfate (Clopidogrel), 1 TAB PO DAILY, (Reported) Docusate Sodium (Docusate Sodium), 1 CAP PO BID, (Reported) Furosemide (Furosemide), 1 TAB PO BID, (Reported) Gabapentin (Gabapentin), 1 CAP PO Q8HR, (Reported) Isosorbide Mononitrate (Isosorbide Mononitrate Er), 1 TAB PO DAILY Lidocaine (Lidoderm 5% Topical Patch), 1 PATCH TOP DAILY Metronidazole (Flagyl), 500 MG PO TID Paroxetine Hydrochloride (Paroxetine Hydrochloride), 1 TAB PO DAILY, (Reported) Polyethylene Glycol 3350 (Miralax), 17 GM PO DAILY Potassium Chloride (Potassium Chloride ER), 1 TAB PO BID, (Reported) Ranolazine (Ranolazine ER), 500 MG PO BID Simvastatin (Simvastatin), 1 TAB PO DAILY, (Reported) Sitagliptin Phosphate (Januvia), 1 TAB PO DAILY, (Reported) Tirzepatide (Mounjaro), 7.5 MG SC QWEEKLY, (Reported) Scheduled PRN Albuterol Sulfate (Albuterol Sulfate Hfa), 108 MCG IN BID PRN Baclofen (Baclofen), 5 MG PO Q8HP PRN Hydrocodone-Acetaminophen (Hydrocodone Bitartrate/AC 10-325 mg), 1 TAB PO Q6HR PRN for CHRONIC PAIN, (Reported) Hydrocodone-Acetaminophen (Hydrocodone Bitartrate/AC 5-325 mg), 1 TAB PO Q8HP PRN Discontinued Medications Sulfamethoxazole W/Trimethopri (Bactrim Ds Tablet), 1 TAB PO BID Discharge Statement: "Patient was advised to return to the ER or call 911 if any headaches, dizziness, shortness of breath, chest pain, abdominal pain, bleeding, fevers, or worsening of medical condition. Patient was counseled about treatment plan, medications, possible side effects, patientverbalized understanding. All questions were answered to the best of my ability. This discharge took greater then 30 minutes in planning, reviewing documentation, counseling the patient, and discussing with other team members." ASSESSMENT ASSESSMENT Assessment abd PAIN-GASTRITIS OUTPT REFERRAL TO OBGYN FOR TED ELDER NP Dec 28, 2024 13:54
[2024-12-28 14:01] LABS: Hematocrit 39.4 % (36.0-46.0); Hemoglobin 13.3 g/dL (12.2-16.2); Mean Corpuscular Hemoglobin 30.5 pg (28.0-32.0); Mean Corpuscular Volume 90.6 fL (80.0-100.0); Nucleated Red Blood Cells % 0.2 %
[2024-12-28 14:34] LABS: Alanine Aminotransferase < 9 U/L (7-40); Albumin 4.0 g/dL (3.2-4.8); Alkaline Phosphatase 93 U/L (46-116); Anion Gap 11 (5-15); BUN/Creatinine Ratio 8.0 (10.0-20.0); Bilirubin, Total 0.6 mg/dL (0.2-1.0); Blood Urea Nitrogen 8 mg/dL (9-23); Calcium 9.4 mg/dL (8.7-10.4); Carbon Dioxide 26 mmol/L (20-31); Chloride 107 mmol/L (98-107); Glucose 146 mg/dL (74-106); Potassium 3.7 mmol/L (3.5-5.1); Sodium 144 mmol/L (136-145); Total Protein 6.2 g/dL (5.7-8.2)
[2024-12-28] MEDS ORDERED: InsuLIN REG 1unit/0.01ml Soln (100units/ml) SC SCH ×2 (17:00→22:00)
[2024-12-28] MEDS ORDERED: ACCU-CHEK COMFORT CURVE STRIP VI SCH (17:00)
== END 2024-12-28 15:15 | disposition home or self-care (01) | DRG 392 ==
LOC: ER 11:41 → OVERFLOW 17:35 → TELE-WESTW 12-26 18:13
PROVIDERS: ADMIT Nurse Practitioner; ATTEND Nurse Practitioner
DX: K29.70 Gastritis, unspecified, without bleeding (principal); N30.00 Acute cystitis without hematuria; I50.32 Chronic diastolic (congestive) heart failure; I69.354 Hemiplegia and hemiparesis following cerebral infarction affecting left non-dominant side; K50.90 Crohn's disease, unspecified, without complications; N12 Tubulo-interstitial nephritis, not specified as acute or chronic; E11.40 Type 2 diabetes mellitus with diabetic neuropathy, unspecified; I25.10 Atherosclerotic heart disease of native coronary artery without angina pectoris; E66.01 Morbid (severe) obesity due to excess calories; Z68.34 Body mass index [BMI] 34.0-34.9, adult; E78.5 Hyperlipidemia, unspecified; I11.0 Hypertensive heart disease with heart failure; K21.9 Gastro-esophageal reflux disease without esophagitis; K59.00 Constipation, unspecified; D25.9 Leiomyoma of uterus, unspecified; N20.0 Calculus of kidney; K57.30 Diverticulosis of large intestine without perforation or abscess without bleeding; Z91.148 Patient's other noncompliance with medication regimen for other reason; I25.2 Old myocardial infarction; I69.320 Aphasia following cerebral infarction; Z79.02 Long term (current) use of antithrombotics/antiplatelets; Z79.82 Long term (current) use of aspirin; Z79.84 Long term (current) use of oral hypoglycemic drugs; Z79.899 Other long term (current) drug therapy; Z80.0 Family history of malignant neoplasm of digestive organs; Z80.3 Family history of malignant neoplasm of breast; Z82.0 Family history of epilepsy and other diseases of the nervous system; Z82.49 Family history of ischemic heart disease and other diseases of the circulatory system; Z83.3 Family history of diabetes mellitus; Z85.038 Personal history of other malignant neoplasm of large intestine; Z85.41 Personal history of malignant neoplasm of cervix uteri; Z86.19 Personal history of other infectious and parasitic diseases; Z90.49 Acquired absence of other specified parts of digestive tract; Z98.61 Coronary angioplasty status; Z91.040 Latex allergy status; Z85.05 Personal history of malignant neoplasm of liver
CPT/HCPCS: 36415; 74177; 80048; 80053; 81001; 83605; 85025; 87040; 96361; 96374; 96375; 99291; G0378; J0692; J2405

== ENCOUNTER 2025-01-15 23:18 | Inpatient (IN) | payer MEDICARE, MEDICAID ==
[~2025-01-15] VITALS: Ht 157.5 cm; Wt 83.4 kg
[~2025-01-15 23:18] MED LIST changes: -BACDST PO
[2025-01-15] MEDS: HYDROcodone-ACET 10/325MG TAB PO ONE (23:30)
[2025-01-15 23:41] LABS: Hematocrit 39.3 % (36.0-46.0); Hemoglobin 13.2 g/dL (12.2-16.2); Mean Corpuscular Hemoglobin 30.5 pg (28.0-32.0); Mean Corpuscular Volume 90.6 fL (80.0-100.0); Nucleated Red Blood Cells % 0.1 %
--- NOTE | 2025-01-16 00:24 | ECG ---
[facility] Test Date: 2025-01-16 Test Time: 00:23:36 Pat Name: KAVYA TEJEDA Department: ED Room: 0236T Gender: F Cotton Opener: LUIS M : 1965 Requested By: BALTAZAR MADDEN Order Number: [id number] Reading MD: Humberto Alvarez Measurements Intervals [place] Rate: 69 P: 43 ID: [id number] QRS: -54 QRSD: 106 T: -65 QT: 394 QTc: 422 Interpretive Statements Sinus rhythm LAD, consider left anterior fascicular block Abnormal R-wave progression, early transition Nonspecific T abnormalities, diffuse leads Electronically Signed On 01-17-2025 20:37:41 PDT by Humberto Alvarez Please click the below link to view image of tracing.
--- NOTE | 2025-01-16 00:28 | ECG ---
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
[2025-01-16] MEDS ORDERED: NITROGLYCERIN 0.4 MG SL TAB SL ONE (02:30)
--- NOTE | 2025-01-16 02:40 | ED.PDOC ---
HPI Comments This patient is a morbidly obese 59-year-old female who arrives the ED today via EMS due to complaints of left-sided chest pain concerns as well as general abdominal pain concerns. Patient received nitro and aspirin or route, but states with the nitro was ineffective to reduce her pain concerns. Patient states the chest pain began approximately 5 hours to arrival and has been consistent. Patient states the constipation that has been ongoing for the past several days. Patient denies any fever nausea or vomiting. Vital signs were stable on arrival. Chief Complaint: Chest Pain Time Seen by MD: 23:22 Primary Care Provider: unknown Reviewed Notes: Nurses Notes, Streetcar Starter Notes Allergies: Coded Allergies: Latex (Verified Allergy, Mild, 06/02/24) INCLUDING TAPE, BROWN AND CLEAR TAPE Home Meds Active Scripts Metronidazole (Flagyl) 500 Mg Tab, 500 MG PO TID for 7 Days, #21 TAB Prov:TED HUSSEIN NP 12/28/24 Hydrocodone-Acetaminophen (Hydrocodone Bitartrate/AC 5-325 mg) 1 Tab Tab, 1 TAB PO Q8HP PRN for 5 Days, #15 TAB Prov:SEAN ZEPEDA MD 09/30/24 Ranolazine (Ranolazine ER) 500 Mg Tab, 500 MG PO BID for 30 Days, #60 TAB Prov:TED HUSSEIN NP 07/30/24 Baclofen (Baclofen) 10 Mg Tab, 5 MG PO Q8HP PRN for 7 Days, #21 TAB Prov:TED HUSSEIN NP 07/30/24 Isosorbide Mononitrate (Isosorbide Mononitrate Er) 30 Mg Tab, 1 TAB PO DAILY, #30 TAB 5 Refills Prov:TED HUSSEIN NP 07/30/24 Lidocaine (LIDODERM 5% TOPICAL PATCH) 1 Patch Ph, 1 PATCH TOP DAILY for 30 Days, #30 PATCH 0 Refills Prov:MIAN ROMO EQUITIES ANALYST 06/02/24 Polyethylene Glycol 3350 (Miralax) 17 Gm Pow, 17 GM PO DAILY for 15 Days, #15 POW Prov:TED HUSSEIN NP 05/03/24 Albuterol Sulfate (Albuterol Sulfate Hfa) 108 Mcg/Act Aer, 108 MCG IN BID PRN for 10 Days, #1 AER 0 Refills Prov:LILI LUNSFORD DO 12/01/22 Reported Medications Docusate Sodium (Docusate Sodium) 100 Mg Cap, 1 CAP PO BID for 30 Days, #60 07/03/24 Simvastatin (Simvastatin) 20 Mg Tab, 1 TAB PO DAILY for 90 Days, #90 07/03/24 Hydrocodone-Acetaminophen (Hydrocodone Bitartrate/AC 10-325 mg) 1 Tab Tab, 1 TAB PO Q6HR PRN for CHRONIC PAIN for 30 Days, #120 07/03/24 Potassium Chloride (Potassium Chloride ER) 10 Meq Tab, 1 TAB PO BID for 90 Days, #180 07/03/24 Paroxetine Hydrochloride (Paroxetine Hydrochloride) 20 Mg Tab, 1 TAB PO DAILY for 90 Days, #90 05/01/24 Tirzepatide (Mounjaro) 7.5 Mg/0.5 Ml Inj, 7.5 MG SC QWEEKLY for 28 Days, #2 10/18/23 Sitagliptin Phosphate (Januvia) 100 Mg Tab, 1 TAB PO DAILY 10/18/23 Clopidogrel Bisulfate (CLOPIDOGREL) 75 Mg Tab, 1 TAB PO DAILY 10/18/23 Furosemide (Furosemide) 40 Mg Tab, 1 TAB PO BID 10/18/23 Atorvastatin Calcium (ATORVASTATIN CALCIUM) 20 Mg Tab, 1 TAB PO DAILY 10/17/23 Cholecalciferol (Vitamin D-3 Super Strengt) 2,000 Unit Tab, 1 TAB PO DAILY 10/17/23 Gabapentin (Gabapentin) 300 Mg Cap, 1 CAP PO Q8HR for NEUROPATHIC PAIN for 30 Days, #90 10/17/23 Aspirin (Aspirin Low Dose) 81 Mg Tab, 1 TAB PO DAILY 10/17/23 Balsalazide Disodium (Balsalazide Disodium) 750 Mg Cap, 3 CAP PO BID for 30 Days, #180 10/17/23 Information Source: Patient, Emergency Med Personnel Mode of Arrival: EMS Severity: Moderate Timing: Hours Duration: Since onset Prehospital treatment: Ip Litigation Associate Location: Chest (L), Substernal Quality: Sharp, Stabbing, Pressure, Tightness Onset: At Rest Cardiac Risk Factors: None PE Risk Factors: None History of: Similar pain in past Past Medical History PAST MEDICAL HISTORY: Angina, CAD, Cancer, CHF, CVA, DM, High Lipids, Kidney Stones, Liver, [place] Surgical History: Cholecystectomy, Hernia Repair, 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 Family History Family History: Reviewed,noncontributory to illness, Family hx of Cancer, Family hx of heart naveen Social History Smoker: Non-Smoker Alcohol: Denies ETOH Use Drugs: Denies Drug Use Lives In: Home Constitutional: reports: weakness; denies: chills, diaphoresis, fatigue, fever, malaise, sweats, others EENTM: denies: blurred vision, double vision, ear bleeding, ear discharge, ear drainage, ear pain, ear ringing, eye pain, eye redness, hearing loss, mouth pain, mouth swelling, nasal discharge, nose bleeding, nose congestion, nose pain, photophobia, tearing, throat pain, throat swelling, voice changes, others Respiratory: denies: cough, hemoptysis, orthopnea, SOB at rest, shortness of breath, SOB with excertion, stridor, wheezing, others Cardiovascular: reports: chest pain; denies: dizzy spells, diaphoresis, Dyspnea on exertion, edema, irregular heart beat, left arm pain, lightheadedness, palpitations, PND, syncope, others Gastrointestinal: reports: abdominal pain, nausea; denies: abdomen distended, blood streaked bowels, constipated, diarrhea, dysphagia, difficulty swallowing, hematemesis, melena, poor appetite, poor fluid intake, rectal bleeding, rectal pain, vomiting, others Genitourinary: denies: abnormal vagina bleeding, burning, dyspareunia, dysuria, flank pain, frequency, hematuria, incontinence, pain, , vagina discharge, urgency, others Neurological: denies: dizziness, fainting, headache, left sided numbness, left sided weakness, numbness, paresthesia, pre-existing deficit, right sided numbness, right sided weakness, seizure, speech problems, tingling, tremors, weakness, others Musculoskeletal: denies: back pain, gout, joint pain, joint swelling, muscle pain, muscle stiffness, neck pain, others Integumetry: denies: bruises, change in color, change in hair/nails, dryness, laceration, lesions, lumps, rash, wounds, others Allergic/Immunocompromised: denies: Difficulty Healing, Frequent Infections, Hives, Itching, others Hematologic/Lymphatic: denies: anemia, blood clots, easy bleeding, easy bruisi ng, swollen glands, others Endocrine: denies: excessive hunger, excessive sweating, excessive thirst, exce ssive urination, flushing, intolerance to cold, intolerance to heat, unexplained weight gain, unexplained weight loss, others Psychiatric: denies: anxiety, bipolar disorder, depression, hopeless, panic disorder, schizophrenia, sleepless, suicidal, others Physical Exam General Appearance: Moderate Distress (Moderate distress due to chest pain concerns.), Obese HEENT: Normal ENT Inspection, Pharynx Normal, TMs Normal Neck: Full Range of Motion, Non-Tender, Normal, Normal Inspection Respiratory: Chest Non-Tender, Lungs Clear, No Accessory Muscle Use, No Respiratory Distress, Normal Breath Sounds, Other (Unremarkable auscultation bilateral lung fernandez.) Cardiovascular: No Edema, No JVD, No Murmur, No Gallop, Normal Peripheral Pulses, Regular Rate/Rhythm, Other (Unremarkable cardiac evaluation.) Breast Exam: Deferred Gastrointestinal: No Pulsatile Mass, Normal Bowel Sounds, Other (Difficult to assess due to body habitus. Generalized tenderness to palpation in her around the umbilicus region.) Genitalia: Deferred Pelvic: Deferred Rectal: Deferred Extremities: Normal capillary refill Neurologic: Alert Cerebellar Function: NOT DONE Reflexes: NOT DONE Skin: Dry, Normal Color, Warm Lymphatic: No Adenopathy Was a procedure done? Was a procedure done?: No CP Differential Dx Differential Diagnosis: A-fib, A-Flutter, Anxiety / Panic Attack, AV Block 1st Degree, [place], Other (Constipation) Differential Diagnosis: CHF Differential Diagnosis: Angina, Costochondritis X-Ray, Labs, Meds, VS Vital Signs Date Time Temp Pulse Resp B/P (MAP) Pulse Ox O2 Delivery O2 Flow Rate FiO2 01/16/25 01:27 69 18 126/73 (90) 98 01/16/25 00:23 69 01/15/25 23:21 66 01/15/25 23:18 98.8 70 18 139/82 98 98.8 Lab Test 01/16/25 00:28 01/15/25 23:32 Range/Units Troponin I High Sensitivity < 3 L < 3 L </=34 ng/L White Blood Count 6.2 4.4-10.8 10^3/uL Red Blood Count 4.34 4.0-5.20 10^6/uL Hemoglobin 13.2 12.2-16.2 g/dL Hematocrit 39.3 36.0-46.0 % Mean Corpuscular Volume 90.6 80.0-100.0 fL Mean Corpuscular Hemoglobin 30.5 28.0-32.0 pg Mean Corpuscular Hemoglobin Concent 33.7 32.0-36.0 g/dL Red Cell Distribution Width 14.4 H 11.8-14.3 % Platelet Count 236 140-450 10^3/uL Mean Platelet Volume 8.6 6.9-10.8 fL Neutrophils (%) (Auto) 57.3 37.0-80.0 % Lymphocytes (%) (Auto) 34.1 10.0-50.0 % Monocytes (%) (Auto) 4.6 0.0-12.0 % Eosinophils (%) (Auto) 3.2 0.0-7.0 % Basophils (%) (Auto) 0.8 0.0-2.0 % Neutrophils # (Auto) 3.6 1.6-8.6 10 ^3/uL Lymphocytes # (Auto) 2.1 0.4-5.4 10 ^3/uL Monocytes # (Auto) 0.3 0-1.3 10 ^3/uL Eosinophils # (Auto) 0.2 0-0.8 10 ^3/uL Basophils # (Auto) 0.1 0-0.2 10 ^3/uL Nucleated Red Blood Cells 0.1 % D-Dimer, Quantitative 0.33 0.0-0.49 mg/L FEU B-Type Natriuretic Peptide 13.01 0-100 pg/mL Current Medications Medications (Trade) Dose Ordered Sig/Damon Route Start Time Stop Time Status Last Admin Acetaminophen/ Hydrocodone Bitart ([place] 10/325MG Tab) 1 tab ONCE ONCE PO 01/15/25 23:30 01/15/25 23:31 DC 01/15/25 23:30 X-Ray, Labs, Meds, VS Comment All studies performed the ED were evaluated by me personally. Several studies were pending at time of this note. Laboratories studies were relatively unremarkable including unremarkable cardiac markers. EKG revealed a sinus rhythm with a rate of 69. LAD and possible left anterior fascicular block was noted. Abnormal R-wave progression and nonspecific T-wave abnormalities was noted. LA interval of 141 and QT interval of 394. Patient will be admitted for acute coronary syndrome concerns due to the inability to reduce chest pain and abdominal pain concerns with oral medications.. Time of 1ST Reevaluation: 02:40 Reevaluation 1ST: Improved Consultation: PCP, Cardiology Patient Education/Counseling: Diagnosis, Treatment Family Education/Counseling: Diagnosis, Treatment SEPSIS Sepsis Screen Date sepsis recognized/suspect: Jan 15, 2025 Time Sepsis recognized/suspect: 2317 Recent Procedure: No On Antibiotic Therapy: No Respiratory Rate >20: No Heart Rate >90: No Temp<36 C (96.8 F) or >38.3 C: No SBP <90 or MAP <65 mmHG: No New Acute Mental Status Change: No Is the patient on CPAP, BIPAP,: No Physician Orders Electrocardigram (01/16/25 02:24) Chest Portable (01/15/25 23:25) Heplock Iv (01/15/25 23:25) Urinalysis (01/15/25 23:25) Kub Abdomen Single View (01/16/25 02:29) Vital Signs Date Time Temp Pulse Resp B/P (MAP) Pulse Ox O2 Delivery O2 Flow Rate FiO2 01/16/25 01:27 69 18 126/73 (90) 98 01/16/25 00:23 69 01/15/25 23:21 66 01/15/25 23:18 98.8 70 18 139/82 98 98.8 Laboratory Tests Test 01/15/25 23:32 White Blood Count 6.2 10^3/uL (4.4-10.8) Medications Medications Dose Ordered Sig/Damon Route Start Time Stop Time Status Last Admin Dose Admin Acetaminophen/ Hydrocodone Bitart 1 tab ONCE ONCE PO 01/15/25 23:30 01/15/25 23:31 DC 01/15/25 23:30 Departure 1 Departure Time of Disposition: 02:38 Impression: Primary Impression: Chest pain Additional Impression: Abdominal pain Disposition: 09 ADMITTED INPATIENT Condition: Stable Discharged With: Self Critical Care Note Critical Care Time?: No Stability Stability form required: No Heart Score Heart Score: Heart Score Response (Comments) Value History N/A 0 EKG N/A 0 Age N/A 0 Risk Factors N/A 0 Troponin N/A 0 Total 0 BALTAZAR MADDEN PAC Jan 16, 2025 02:40
--- NOTE | 2025-01-16 03:02 | DVH ---
CHEST RADIOGRAPH Indication: Chest pain Technique: 1 view Comparison: XY CHEST PORTABLE on DOS: 11/10/24, XY CHEST PORTABLE on DOS: 10/22/24, XY CHEST PORTABLE on DOS: 07/28/24, XY CHEST PORTABLE on DOS: 07/19/24, XY CHEST PORTABLE on DOS: 07/04/24 FINDINGS: Lines and Tubes: None. Lungs/Pleura: No focal consolidation, pleural effusion or pneumothorax. Cardiomediastinum: Unremarkable. Other: No acute osseous abnormality. IMPRESSION: 1. No acute cardiopulmonary abnormality.
--- NOTE | 2025-01-16 03:12 | DVH ---
Exam: XY KUB ABDOMEN SINGLE VIEW Indication: Constipation Comparison: CT abdomen/pelvis 12/25/2024 Technique: 2 views Findings: Nonobstructive bowel gas pattern. No large stool burden. Punctate metallic densities overlying the lo wer pelvis correspond to ventral wall postsurgical change on prior CT. The lower chest is unremarkable. No acute osseous finding. Impression: 1. Nonobstructive bowel gas pattern. No significant stool burden.
[2025-01-16] MEDS ORDERED: DEXTROSE (50%) 50ML SYRG IV PRN (03:30)
[2025-01-16] MEDS ORDERED: ONDANSETRON HCL 4 MG/2 ML VIAL IV PRN (03:30)
[2025-01-16] MEDS ORDERED: DOCUSATE SOD 100 MG CAP PO PRN (03:30)
[2025-01-16] MEDS ORDERED: ACETAMINOPHEN 325 MG TAB PO PRN (03:30)
--- NOTE | 2025-01-16 03:54 | DVHHP2 ---
History of Present Illness Reason for Visit: Chest pain History of Present Illness The patient is a 59-year-old female with multiple past medical history including diabetes mellitus, Coronary artery disease, CHF, and hyperlipidemia who presented to [facility] ED with complaint of chest pain. Patient reports she has been experiencing left-sided chest pain and generalized abdominal pain. Patient reports symptoms progressively get worse, unrelieved by nitro and aspirin, consistent, rating 7/10 numeric scale, associated constipation for several days. Patient was seen and evaluated in the ED, laboratory data shows WBC 6.2, platelets 236, BNP 13.01, troponin < 3, D-dimer 0.33, blood pressure 126/73, heart rate 66, temperature 98.8 F, O2 saturation 98% on room air. Chest x-ray showed no acute cardiopulmonary abnormality. Please see medication orders section in the computer. On my assessment, patient denied chest pain at this moment, no headache, dizziness, diaphoresis, currently on oxygen, no diarrhea, nausea, vomiting, no fever, no chills. Patient was admitted for further evaluation and medical management. Past Medical History Angina, CAD, Cancer, CHF, CVA, DM, High Lipids, Kidney Stones, Liver, [place] Past Surgical History Right carotid surgery, Cholecystectomy, Hernia Repair, PTCA Family History Reviewed, noncontributory to the management of this case. Past Social History The patient lives at home, denies smoking, alcohol or illicit drugs abuse. Review of Systems Constitutional: Yes: Weakness; No: Fever, Chills, Sweats, Malaise, Other Eyes: No: Pain, Vision change, Conjunctivae inflammation, Eyelid inflammation, Other, Redness ENT: No: Ear pain, Ear discharge, Nose pain, Nose discharge, Nose congestion, Mouth pain, Mouth swelling, Throat pain, Throat swelling, Other Respiratory: No: Cough, Dry, Shortness of breath, SOB with excertion, Wheezing, Hemoptysis, Pleuritic Pain, Sputum, Wheezing, Other Cardiovascular: Chest Pain; No: Palpitations, Orthopnea, Paroxysmal Noc. Dyspnea, Edema, Lt Headedness, Other Gastrointestinal: Abdominal Pain, Constipation; No: Nausea, Vomiting, Diarrhea, Melena, Hematochezia, Other Genitourinary: No Dysuria, No Frequency, No Incontinence, No Hematuria, No Retention, No Other Musculoskeletal: No: other, neck pain, shoulder pain, arm pain, back pain, hand pain, leg pain, foot pain Skin: No: Rash, Lesions, Jaundice, Bruising, Other Neurological: No: Weakness, Numbness, Incoordination, Change in speech, Confusion, Seizures, Other Allergies: Coded Allergies: Latex (Verified Allergy, Mild, 06/02/24) INCLUDING TAPE, BROWN AND CLEAR TAPE Medications Current Medications Medications Dose Ordered Sig/Damon Route Start Time Stop Time Status Last Admin Dose Admin Aspirin 81 mg DAILY PO 01/16/25 10:00 Atorvastatin Calcium 20 mg HS PO 01/16/25 22:00 Diagnostic Test (Pha) 1 strip ACHS 01/16/25 07:00 Insulin Human Regular ACHS SC 01/16/25 07:00 Dextrose 50 ml UD PRN IV 01/16/25 03:30 Sodium Chloride 10 ml Q8HR IV 01/16/25 06:00 Acetaminophen/ Hydrocodone Bitart 1 tab Q4HP PRN PO 01/16/25 03:30 Ondansetron HCl 4 mg Q4HP PRN IV 01/16/25 03:30 Docusate Sodium 100 mg BIDPRN PRN PO 01/16/25 03:30 Acetaminophen 650 mg Q6HP PRN PO 01/16/25 03:30 Nitroglycerin 0.4 mg Q5MINP PRN SL 01/16/25 04:00 UNV Morphine Sulfate 2 mg Q30M PRN IV 01/16/25 04:00 UNV Exam Vital Signs Vital Signs Date Time Temp Pulse Resp B/P (MAP) Pulse Ox O2 Delivery O2 Flow Rate FiO2 01/16/25 01:27 69 18 126/73 (90) 98 01/15/25 23:18 98.8 98.8 General Appearance: Alert, Oriented X3, Cooperative, No acute distress HEENT: Atraumatic, PERRLA, EOMI, Mucous membr. moist/pink Respiratory: Normal air movement Cardiovascular: Regular rate, Normal S1, Normal S2, No murmurs Abdominal: Normal bowel sounds, Soft, No tenderness, No hepatospenomegaly, No masses Extremities: No clubbing, No cyanosis, No edema, Normal pulses, No tenderness/swelling Skin: No rashes, No breakdown, No significant lesion Neuro: Normal speech, Normal tone, Sensation intact, Cranial nerves 3-12 NL, Reflexes 2+, Other (Generalized weakness) Psych/Mental Status: Mental status NL, Mood NL Labs/Xrays Labs Test 01/16/25 00:28 01/15/25 23:32 Range/Units Troponin I High Sensitivity < 3 L </=34 ng/L White Blood Count 6.2 4.4-10.8 10^3/uL Red Blood Count 4.34 4.0-5.20 10^6/uL Hemoglobin 13.2 12.2-16.2 g/dL Hematocrit 39.3 36.0-46.0 % Mean Corpuscular Volume 90.6 80.0-100.0 fL Mean Corpuscular Hemoglobin 30.5 28.0-32.0 pg Mean Corpuscular Hemoglobin Concent 33.7 32.0-36.0 g/dL Red Cell Distribution Width 14.4 H 11.8-14.3 % Platelet Count 236 140-450 10^3/uL Mean Platelet Volume 8.6 6.9-10.8 fL Neutrophils (%) (Auto) 57.3 37.0-80.0 % Lymphocytes (%) (Auto) 34.1 10.0-50.0 % Monocytes (%) (Auto) 4.6 0.0-12.0 % Eosinophils (%) (Auto) 3.2 0.0-7.0 % Basophils (%) (Auto) 0.8 0.0-2.0 % Neutrophils # (Auto) 3.6 1.6-8.6 10 ^3/uL Lymphocytes # (Auto) 2.1 0.4-5.4 10 ^3/uL Monocytes # (Auto) 0.3 0-1.3 10 ^3/uL Eosinophils # (Auto) 0.2 0-0.8 10 ^3/uL Basophils # (Auto) 0.1 0-0.2 10 ^3/uL Nucleated Red Blood Cells 0.1 % D-Dimer, Quantitative 0.33 0.0-0.49 mg/L FEU B-Type Natriuretic Peptide 13.01 0-100 pg/mL PATIENT: KAVYA TEJEDA ACCT: [id number] UNIT: [id number] : 1965 LOC: ER ROOM / BED: / AGE / SEX: 59 / F ADM STATUS: REG ER SERVICE 0229 ORDERING PHYSICIAN: BALTAZAR MADDEN PAC PROCEDURE(s): KUB - KUB ABDOMEN SINGLE VIEW REASON: Constipation ORDER NUMBER(s): [id number], ACCESSION NUMBER(s): [id number] Exam: XY KUB ABDOMEN SINGLE VIEW Indication: Constipation Comparison: CT abdomen/pelvis 12/25/2024 Technique: 2 views Findings: Nonobstructive bowel gas pattern. No large stool burden. Punctate metallic densities overlying the lower pelvis correspond to ventral wall postsurgical ch hussain on prior CT. The lower chest is unremarkable. No acute osseous finding. Impression: 1. Nonobstructive bowel gas pattern. No significant stool burden. ORDERING PHYSICIAN: BALTAZAR MADDEN PAC PROCEDURE(s): CXRP - CHEST PORTABLE REASON: Chest pain ORDER NUMBER(s): [id number], ACCESSION NUMBER(s): [id number] CHEST RADIOGRAPH Indication: Chest pain Technique: 1 view Comparison: XY CHEST PORTABLE on DOS: 11/10/24, XY CHEST PORTABLE on DOS: 10/22/24, XY CHEST PORTABLE on DOS: 07/28/24, XY CHEST PORTABLE on DOS: 07/19/24, XY CHEST PORTABLE on DOS: 07/04/24 FINDINGS: Lines and Tubes: None. Lungs/Pleura: No focal consolidation, pleural effusion or pneumothorax. Cardio-mediastinum: Unremarkable. Other: No acute osseous abnormality. IMPRESSION: 1. No acute cardiopulmonary abnormality. SEPSIS Sepsis Screen Date sepsis recognized/suspect: Jan 15, 2025 Time Sepsis recognized/suspect: 2317 Recent Procedure: No On Antibiotic Therapy: No Respiratory Rate >20: No Heart Rate >90: No Temp<36 C (96.8 F) or >38.3 C: No SBP <90 or MAP <65 mmHG: No New Acute Mental Status Change: No Is the patient on CPAP, BIPAP,: No Physician Orders Electrocardigram (01/16/25 02:24) Chest Portable (01/15/25 23:25) Heplock Iv (01/15/25 23:25) Urinalysis (01/15/25 23:25) Kub Abdomen Single View (01/16/25 02:29) Complete Blood Count (01/16/25 04:00) Comprehensive Metabolic Panel (01/16/25 04:00) Aspirin Tablet (01/16/25 10:00) Atorvastatin (Lipitor) (01/16/25 22:00) Consistent Carb(Ccho)Diabetes (01/16/25 Breakfast) Glucose Blood (Accu-Chek Comfort Curve T (01/16/25 07:00) Insulin R (Human) (Insulin R) (01/16/25 07:00) Dextrose 50% Syringe (01/16/25 03:30) Allergies (01/16/25 03:20) Code Status (01/16/25 03:20) Sodium Chloride Lock (Saline Lock Ns) (01/16/25 06:00) Oxygen Per Hour (01/16/25 03:20) Hydrocodone-Acet 5/325mg Tab ([place] 5/32 (01/16/25 03:30) Ondansetron Hcl (Zofran) (01/16/25 03:30) Docusate Sodium Capsule (Colace Capsule) (01/16/25 03:30) Complete Blood Count (01/17/25 04:00) Comprehensive Metabolic Panel (01/17/25 04:00) Condition: Serious (01/16/25 03:20) Acetaminophen Tablet (Tylenol Tablet) (01/16/25 03:30) Bedrest With Bathroom Privileg (01/16/25 03:20) Sequential Compression Device (01/16/25 ) Admit (01/16/25 03:52) Nitroglycerin Sublingual (Ntrostat Subli (01/16/25 04:00) Morphine Sulfate Injection (01/16/25 04:00) Stat Ekg For Chest Pain (01/16/25 03:52) Notify Md Of Changes From Base (01/16/25 03:52) Floor Associate For 24 Hours (01/16/25 03:52) Emergency Dysrhythmia Protocol (01/16/25 03:52) Rhythm Strips Once Every Shift (01/16/25 03:52) Oxygen By Nasal Cannula (01/16/25 03:52) Vital Signs Date Time Temp Pulse Resp B/P (MAP) Pulse Ox O2 Delivery O2 Flow Rate FiO2 01/16/25 01:27 69 18 126/73 (90) 98 01/16/25 00:23 69 01/15/25 23:21 66 01/15/25 23:18 98.8 70 18 139/82 98 98.8 Laboratory Tests Test 01/15/25 23:32 White Blood Count 6.2 10^3/uL (4.4-10.8) Medications Medications Dose Ordered Sig/Damon Route Start Time Stop Time Status Last Admin Dose Admin Acetaminophen/ Hydrocodone Bitart 1 tab ONCE ONCE PO 01/15/25 23:30 01/15/25 23:31 DC 01/15/25 23:30 1 TAB Assessment/Plan Assessment/Plan Chest pain Abdominal pain Generalized weakness Plan 1. Admit to telemetry unit 2. Breathing treatment 3. Pain control management 4. Management of fluids and electrolytes 5. Consultation for hospitalist 6. Diagnostic tests chest x-ray 7. DVT prophylaxis -on aspirin 8. Repeat labs CBC, CMP in a.m. 9. Continue with current medical management 10. Treatment plan discussed with patient and RN. Patient verbalized understanding. Plan discussed with: Patient, Other (RN) My Orders Orders - TRACEY OAKLEY DNP Procedure Category Date Status Time Complete Blood Count LAB 01/16/25 Logged 04:00 Comprehensive LAB 01/16/25 Logged Metabolic Panel 04:00 Aspirin Tablet PHA 01/16/25 In Process 10:00 Atorvastatin (Lipitor) PHA 01/16/25 In Process 22:00 Consistent DIET 01/16/25 Transmitted Carb(Ccho)Diabetes Breakfast Glucose Blood PHA 01/16/25 In Process (Accu-Chek Comfort 07:00 Insulin R (Human) PHA 01/16/25 In Process (Insulin R) 07:00 Dextrose 50% Syringe PHA 01/16/25 In Process 03:30 Allergies YESSY 01/16/25 In Process 03:20 Code Status CODE 01/16/25 Transmitted 03:20 Sodium Chloride Lock PHA 01/16/25 In Process (Saline Lock Ns) 06:00 Oxygen Per Hour RT 01/16/25 Transmitted 03:20 Hydrocodone-Acet PHA 01/16/25 In Process 5/325mg Tab ([place] 03:30 Ondansetron Hcl PHA 01/16/25 In Process (Zofran) 03:30 Docusate Sodium PHA 01/16/25 In Process Capsule (Colace 03:30 Complete Blood Count LAB 01/17/25 Verified 04:00 Comprehensive LAB 01/17/25 Verified Metabolic Panel 04:00 Condition: Serious YESSY 01/16/25 In Process 03:20 Acetaminophen Tablet PHA 01/16/25 In Process (Tylenol Tablet) 03:30 Bedrest With Bathroom [facility] 01/16/25 In Process Privileg 03:20 Sequential [facility] 01/16/25 In Process Compression Device Admit ADMIT 01/16/25 Transmitted 03:52 Nitroglycerin [facility] 01/16/25 Logged Sublingual (Ntrostat 04:00 Morphine Sulfate [facility] 01/16/25 Logged Injection 04:00 Stat Ekg For Chest [facility] 01/16/25 In Process Pain 03:52 Notify Md Of Changes [facility] 01/16/25 In Process From Base 03:52 Floor Associate For [facility] 01/16/25 In Process 24 Hours 03:52 Emergency Dysrhythmia [facility] 01/16/25 In Process Protocol 03:52 Rhythm Strips Once [facility] 01/16/25 In Process Every Shift 03:52 Oxygen By Nasal 01/16/25 Transmitted Cannula 03:52 Problem List: (1) Chest pain (2) Abdominal pain (3) Generalized weakness Date of Service: Jan 16, 2025 Billing Provider: TRACEY OAKLEY DNP Common Visit Codes: [id number] INP/OBS CARE (HIGH) TRACEY OAKLEY DNP Jan 16, 2025 03:54
[2025-01-16] MEDS ORDERED: MORPHINE SULFATE INJ 2 MG/ml SYRG IV PRN (04:00)
[2025-01-16] MEDS ORDERED: NITROGLYCERIN 0.4 MG SL TAB SL PRN (04:00)
[2025-01-16 05:28] LABS: Hematocrit 41.6 % (36.0-46.0); Hemoglobin 14.5 g/dL (12.2-16.2); Mean Corpuscular Hemoglobin 30.5 pg (28.0-32.0); Mean Corpuscular Volume 87.3 fL (80.0-100.0); Nucleated Red Blood Cells % 0.5 %
[2025-01-16 05:41] LABS: Albumin 4.6 g/dL (3.2-4.8); Anion Gap 13 (5-15); BUN/Creatinine Ratio 15.7 (10.0-20.0); Blood Urea Nitrogen 18 mg/dL (9-23); Calcium 9.6 mg/dL (8.7-10.4); Carbon Dioxide 26 mmol/L (20-31); Chloride 102 mmol/L (98-107); Potassium 4.0 mmol/L (3.5-5.1); Sodium 141 mmol/L (136-145); Total Protein 7.1 g/dL (5.7-8.2)
[2025-01-16 05:42] LABS: Bilirubin, Total 0.3 mg/dL (0.2-1.0)
[2025-01-16 05:52] LABS: Alanine Aminotransferase < 9 U/L (7-40); Alkaline Phosphatase 119 U/L (46-116); Glucose 201 mg/dL (74-106)
[2025-01-16] MEDS: SODIUM CHLOR 0.9% PF (SALINE LOCK) 10ML VIAL/SYR IV SCH (06:00)
[2025-01-16] MEDS: InsuLIN REG 1unit/0.01ml Soln (100units/ml) SC SCH (06:40)
[2025-01-16] MEDS: ACCU-CHEK COMFORT CURVE STRIP VI SCH (06:40)
[2025-01-16] MEDS: HYDROcodone-ACET 5/325MG TAB PO PRN (06:44)
[2025-01-16 08:35] LABS: Urine Budding Yeast OCCASIONAL /hpf (None Seen); Urine Protein, UAD 1+ (Negative)
[2025-01-16 09:00] VITALS: PULSE 84; RESP 20; O2SAT 97
[2025-01-16 12:19] VITALS: BP 115/79; PULSE 62; RESP 20; TEMP 98.4; O2SAT 95
[2025-01-16 12:37] VITALS: BP 115/79; PULSE 62; RESP 20; TEMP 98.4; O2SAT 95
--- NOTE | 2025-01-16 13:17 | DVHPN2 ---
Reviewed: Care Plan, H&P, Labs, Medications, Previous Orders, Radiology Changes from previous H/P or p: No Changes Eyes: No Pain, No Vision change, No Conjunctivae inflammation, No Eyelid inflammation, No Other, No Redness ENT: No Ear pain, No Ear discharge, No Nose pain, No Nose discharge, No Nose congestion, No Mouth pain, No Mouth swelling, No Throat pain, No Throat swelling, No Other Cardiovascular: Chest Pain; No Palpitations, No Orthopnea, No Paroxysmal Noc. Dyspnea, No Edema, No Lt Headedness, No Other Respiratory: No Cough, No Dry, No Shortness of breath, No SOB with excertion, No Wheezing, No Hemoptysis, No Pleuritic Pain, No Sputum, No Other Gastrointestinal: No Nausea, No Vomiting; Abdominal Pain; No Diarrhea; C onstipation; No Melena, No Hematochezia, No Other Genitourinary: No Dysuria, No Frequency, No Incontinence, No Hematuria, No Retention, No Other Musculoskeletal: No other, No neck pain, No shoulder pain, No arm pain, No back pain, No hand pain, No leg pain, No foot pain Skin: No Rash, No Lesions, No Jaundice, No Bruising, No Other Objective Vitals Vital Signs Date Time Temp Pulse Resp B/P (MAP) Pulse Ox O2 Delivery O2 Flow Rate FiO2 01/16/25 12:37 98.4 62 20 115/79 (91) 95 98.4 01/16/25 09:00 Room Air* 0 21 Medications Current Medications Medications Dose Ordered Sig/Damon Route Start Time Stop Time Status Last Admin Dose Admin Aspirin 81 mg DAILY PO 01/16/25 10:00 01/16/25 10:44 81 MG Atorvastatin Calcium 20 mg HS PO 01/16/25 22:00 Diagnostic Test (Pha) 1 strip ACHS 01/16/25 07:00 01/16/25 10:49 1 STRIP Insulin Human Regular ACHS SC 01/16/25 07:00 01/16/25 10:51 3 UNITS Dextrose 50 ml UD PRN IV 01/16/25 03:30 Sodium Chloride 10 ml Q8HR IV 01/16/25 06:00 Acetaminophen/ Hydrocodone Bitart 1 tab Q4HP PRN PO 01/16/25 03:30 01/16/25 10:45 1 TAB Ondansetron HCl 4 mg Q4HP PRN IV 01/16/25 03:30 Docusate Sodium 100 mg BIDPRN PRN PO 01/16/25 03:30 Acetaminophen 650 mg Q6HP PRN PO 01/16/25 03:30 Nitroglycerin 0.4 mg Q5MINP PRN SL 01/16/25 04:00 Morphine Sulfate 2 mg Q30M PRN IV 01/16/25 04:00 Hydromorphone HCl 0.5 mg Q4HPRN PRN IV 01/16/25 04:00 Laboratory Results Laboratory Tests 01/16/25 04:46 Chemistry Test 01/16/25 04:46 Albumin 4.6 g/dL (3.2-4.8) Calcium Level 9.6 mg/dL (8.7-10.4) Total Protein 7.1 g/dL (5.7-8.2) Coagulation Test 01/15/25 23:32 D-Dimer, Quantitative 0.33 mg/L FEU (0.0-0.49) Cardiac Markers Test 01/15/25 23:32 B-Type Natriuretic Peptide 13.01 pg/mL (0-100) LFT Test 01/16/25 04:46 Alanine Aminotransferase (ALT) < 9 U/L (7-40) Alkaline Phosphatase 119 U/L (46-116) H Aspartate Amino Transferase (AST) 9 U/L (13-40) L Total Bilirubin 0.3 mg/dL (0.2-1.0) Urinalysis Test 01/16/25 08:21 Urine Color Yellow (Yellow) Urine Clarity Ex.turbid (Clear) Urine pH 5.5 (5.0-9.0) Urine Specific [place] 1.028 (1.001-1.035) Urine Protein 1+ (Negative) H Urine Ketones Negative (Negative) Urine Blood 2+ /uL (Negative) H Urine Nitrite Negative (Negative) Urine Bilirubin Negative (Negative) Urine Urobilinogen Normal mg/dL (Negative) Urine Leukocyte Esterase 3+ /uL (Negative) Urine RBC 62 /hpf (0 - 4) Urine Microscopic WBC 851 /HPF (0-5) H Urine Squamous Epithelial Cells Few /hpf (<5) Urine Bacteria None seen /hpf (None Seen) Urine Yeast (Budding) Occasional /hpf (None Urine Glucose 2+ mg/dL (Normal) H Labs and/or images reviewed: Labs reviewed by me, Image(s) reviewed by me Assessment/Plan Assessment/Plan Chest pain negative x3, cardiology consult Sepsis Secondary to urinary tract infection: Blood cultures urine cultures Acute urinary tract infection: Rocephin Abdominal pain Generalized weakness History of coronary artery disease Acute on chronic CHF exacerbation History of CVA Diabetes Hyperlipidemia Kidney stones History of MT Liver disease History of cancer Time spent 70 minutes Advanced care planning time 20 minutes Patient is full code Plan discussed with: Patient Date of Service: Jan 16, 2025 Billing Provider: LINO PATRICK MD Common Visit Codes: [id number] CARE 30-74 MIN LINO PATRICK MD Jan 16, 2025 13:17
[2025-01-16] MEDS: HYDROmorphone HCL 2 MG/ML VL/or syr IV PRN (13:45)
[2025-01-16 17:00] VITALS: BP 108/63; PULSE 66; RESP 18; TEMP 98.6; O2SAT 95
[2025-01-16 19:52] LABS: Amphetamine Screen, Urine Neg (NEGATIVE); Barbiturate Scree,Urine Neg (NEGATIVE); Benzodiazephine Screen, Urine Neg (NEGATIVE)
[2025-01-16 19:53] LABS: Cannabinoid Screen, Urine Neg (NEGATIVE); Opiate Scree,Urine Pos (NEGATIVE); Phencyclidine Screen, Urine Neg (NEGATIVE)
[2025-01-16 20:00] VITALS: PULSE 66; PULSE 73; RESP 18; O2SAT 98
[2025-01-16 20:54] LABS: Cocaine Screen, Urine Neg (NEGATIVE)
[2025-01-16 21:00] VITALS: BP 117/73; PULSE 73; RESP 18; TEMP 98.3; O2SAT 98
[2025-01-16] MEDS: ATORVASTATIN 20 MG TAB PO SCH (21:29)
[2025-01-17] VITALS (8 sets, daily range): BP systolic 97–137; BP diastolic 62–81; PULSE 64–102; RESP 16–18; TEMP 96.3–98.2; O2SAT 92–98
--- NOTE | 2025-01-17 06:10 | DVHPN2 ---
Progress Note Date Seen: Jan 17, 2025 Medical Necessity Reason Pt with a Central, PICC or Fol: No Subjective Review of Systems: CVS:Normal, RESPIRATORY:Normal, GI:Normal Objective vital signs Vital Sign Date Time Temp Pulse Resp B/P (MAP) Pulse Ox O2 Delivery O2 Flow Rate FiO2 01/17/25 05:57 75 16 117/60 01/17/25 05:00 97.8 98 97.8 01/16/25 20:00 Room Air* 0 21 Total Intake and Output 01/16/25 01/16/25 01/17/25 15:00 23:00 07:00 Intake Total 0 ml 740 ml Balance 0 ml 740 ml medications Current Medications Medications Dose Ordered Sig/Damon Route Start Time Stop Time Status Last Admin Dose Admin Aspirin 81 mg DAILY PO 01/16/25 10:00 01/16/25 10:44 81 MG Atorvastatin Calcium 20 mg HS PO 01/16/25 22:00 01/16/25 21:29 20 MG Diagnostic Test (Pha) 1 strip ACHS 01/16/25 07:00 01/17/25 05:52 1 STRIP Insulin Human Regular ACHS SC 01/16/25 07:00 01/16/25 21:31 3 UNITS Dextrose 50 ml UD PRN IV 01/16/25 03:30 Sodium Chloride 10 ml Q8HR IV 01/16/25 06:00 01/16/25 22:00 10 ML Acetaminophen/ Hydrocodone Bitart 1 tab Q4HP PRN PO 01/16/25 03:30 01/16/25 17:26 1 TAB Ondansetron HCl 4 mg Q4HP PRN IV 01/16/25 03:30 Docusate Sodium 100 mg BIDPRN PRN PO 01/16/25 03:30 Acetaminophen 650 mg Q6HP PRN PO 01/16/25 03:30 Nitroglycerin 0.4 mg Q5MINP PRN SL 01/16/25 04:00 Morphine Sulfate 2 mg Q30M PRN IV 01/16/25 04:00 Hydromorphone HCl 0.5 mg Q4HPRN PRN IV 01/16/25 04:00 01/17/25 04:56 0.5 MG Ceftriaxone Sodium 50 ml @ 100 mls/hr DAILY@09 IV 01/17/25 09:00 Examination: GENERAL:Normal, LUNGS:Normal, CVS:Normal, ABDOMEN:Normal, SKIN:Normal, NEURO:Normal laboratory and microbiology Laboratory Tests 01/16/25 04:46 Test 01/16/25 04:46 Range/Units Serum Glucose 201 H 74-106 mg/dL Labs and/or images reviewed: Labs reviewed by me, Image(s) reviewed by me Problem List/Assessment/Plan Problem List/Assessment/Plan Anastacia Wilde is a patient with a history of coronary artery disease, underlying liver disease, and morbid obesity presenting with chest pain and abdominal pain. She was found to have acute cystitis with hematuria and is septic from the cystitis.The patient was initially admitted for chest pain and has been experiencing abdominal pain. She was found to have acute cystitis with hematuria and is septic from the cystitis. Acute Cystitis with Hematuria and Sepsis Assessment: Patient presented with chest pain but was found to have acute cystitis with hematuria, complicated by sepsis. The patient is experiencing abdominal pain, likely related to the cystitis. Treatment with IV Rocephin has been initiated. Plan: - Continue IV Rocephin - Monitor for sepsis resolution - Obtain KUB (Kidney, Ureter, Bladder) X-ray - Start lactulose as needed for constipation Chest Pain Assessment: Patient was initially admitted for chest pain. Troponin levels have been negative three times, suggesting no acute myocardial infarction. Cardiology was consulted and the patient has been evaluated by a rn ccu. The patient has a history of CAD but is not in acute or chronic heart failure exacerbation. Plan: - Follow up on cardiology consultation recommendations Liver Disease Assessment: Patient has underlying liver disease that requires monitoring. Plan: - Monitor liver function Morbid Obesity Assessment: Patient has a history of morbid obesity. Plan discussed with: Patient My Orders My Orders Orders - TAMI ROOT Procedure Category Date Status Time * Cardiology Consult CONS 01/16/25 Transmitted 18:49 Date of Service: Jan 17, 2025 Billing Provider: CAL MARTINO MD Common Visit Codes: [id number] INP/OBS CARE (MOD) TAMI ROOT Jan 17, 2025 06:10
--- NOTE | 2025-01-17 06:41 | DVHINCON2 ---
Date of service: Jan 17, 2025 Referring Physician Rufino Mohan NP Reason for Consultation Chest Pain Family History: FH: breast cancer G8 SISTER FH: cancer FH: liver cancer G8 MOTHER, , Cause: Liver cancer Family history: Alzheimer's disease G8 MOTHER, , Cause: Liver cancer, Onset:Unknown Family history: Cardiovascular disease G8 FATHER, , Cause: CHF (congestive heart failure), Onset:Unknown Family history: Diabetes mellitus G8 BROTHER, Onset:Unknown Thyroid disease 19 CHILD Thyroid disease 19 CHILD Allergies: Coded Allergies: Latex (Verified Allergy, Mild, 06/02/24) INCLUDING TAPE, BROWN AND CLEAR TAPE Home Meds Active Scripts Metronidazole (Flagyl) 500 Mg Tab, 500 MG PO TID for 7 Days, #21 TAB Prov:TED HUSSEIN NP 12/28/24 Hydrocodone-Acetaminophen (Hydrocodone Bitartrate/AC 5-325 mg) 1 Tab Tab, 1 TAB PO Q8HP PRN for 5 Days, #15 TAB Prov:SEAN ZEPEDA MD 09/30/24 Ranolazine (Ranolazine ER) 500 Mg Tab, 500 MG PO BID for 30 Days, #60 TAB Prov:TED HUSSEIN NP 07/30/24 Baclofen (Baclofen) 10 Mg Tab, 5 MG PO Q8HP PRN for 7 Days, #21 TAB Prov:TED HUSSEIN NP 07/30/24 Isosorbide Mononitrate (Isosorbide Mononitrate Er) 30 Mg Tab, 1 TAB PO DAILY, #30 TAB 5 Refills Prov:TED HUSSEIN NP 07/30/24 Lidocaine (LIDODERM 5% TOPICAL PATCH) 1 Patch Ph, 1 PATCH TOP DAILY for 30 Days, #30 PATCH 0 Refills Prov:MIAN ORMO NP 06/02/24 Polyethylene Glycol 3350 (Miralax) 17 Gm Pow, 17 GM PO DAILY for 15 Days, #15 POW Prov:TED HUSSEIN NP 05/03/24 Albuterol Sulfate (Albuterol Sulfate Hfa) 108 Mcg/Act Aer, 108 MCG IN BID PRN for 10 Days, #1 AER 0 Refills Prov:LILI LUNSFORD DO 12/01/22 Reported Medications Docusate Sodium (Docusate Sodium) 100 Mg Cap, 1 CAP PO BID for 30 Days, #60 07/03/24 Simvastatin (Simvastatin) 20 Mg Tab, 1 TAB PO DAILY for 90 Days, #90 07/03/24 Hydrocodone-Acetaminophen (Hydrocodone Bitartrate/AC 10-325 mg) 1 Tab Tab, 1 TAB PO Q6HR PRN for CHRONIC PAIN for 30 Days, #120 07/03/24 Potassium Chloride (Potassium Chloride ER) 10 Meq Tab, 1 TAB PO BID for 90 Days, #180 07/03/24 Paroxetine Hydrochloride (Paroxetine Hydrochloride) 20 Mg Tab, 1 TAB PO DAILY for 90 Days, #90 05/01/24 Tirzepatide (Mounjaro) 7.5 Mg/0.5 Ml Inj, 7.5 MG SC QWEEKLY for 28 Days, #2 10/18/23 Sitagliptin Phosphate (Januvia) 100 Mg Tab, 1 TAB PO DAILY 10/18/23 Clopidogrel Bisulfate (CLOPIDOGREL) 75 Mg Tab, 1 TAB PO DAILY 10/18/23 Furosemide (Furosemide) 40 Mg Tab, 1 TAB PO BID 10/18/23 Atorvastatin Calcium (ATORVASTATIN CALCIUM) 20 Mg Tab, 1 TAB PO DAILY 10/17/23 Cholecalciferol (Vitamin D-3 Super Strengt) 2,000 Unit Tab, 1 TAB PO DAILY 10/17/23 Gabapentin (Gabapentin) 300 Mg Cap, 1 CAP PO Q8HR for NEUROPATHIC PAIN for 30 Days, #90 10/17/23 Aspirin (Aspirin Low Dose) 81 Mg Tab, 1 TAB PO DAILY 10/17/23 Balsalazide Disodium (Balsalazide Disodium) 750 Mg Cap, 3 CAP PO BID for 30 Days, #180 10/17/23 Current Medications Current Medications Medications (Trade) Dose Ordered Sig/Damon Route PRN Reason Start Time Stop Time Status Last Admin Aspirin 81 mg DAILY PO 01/16/25 10:00 01/16/25 10:44 Atorvastatin Calcium (Lipitor) 20 mg HS PO 01/16/25 22:00 01/16/25 21:29 Diagnostic Test (Pha) (Accu-Chek Comfort Curve T) 1 strip ACHS 01/16/25 07:00 01/17/25 05:52 Insulin Human Regular (InsuLIN R) ACHS SC 01/16/25 07:00 01/17/25 06:28 Ceftriaxone Sodium 50 ml @ 100 mls/hr DAILY@09 IV 01/17/25 09:00 Vital Signs Vital Signs Date Time Temp Pulse Resp B/P (MAP) Pulse Ox O2 Delivery O2 Flow Rate FiO2 01/17/25 05:57 75 16 117/60 01/17/25 05:00 97.8 98 97.8 01/16/25 20:00 Room Air* 0 21 Physical Exam Not in acute distress. No JVD. Mucosa is pink and dry. No carotid bruit. Lungs are clear to auscultation. Not using accessory muscles of breathing. Cardiac: Regular, no thrills/gallop. Abdomen is soft. There is no rebound. Bowel sound is positive There was no gross mass/hepatomegaly. Extremities do not reveal edema. Dorsalis pedis is 2+ bilateral. Labs/Diagnostic Data Labs Test 01/17/25 05:55 01/17/25 05:35 01/16/25 08:21 01/16/25 04:46 Range/Units POC Glucose 147 H 70-106 mg/dl Urine Color Yellow Yellow Urine Clarity Ex.turbid Clear Urine pH 5.5 5.0-9.0 Urine Specific [place] 1.028 1.001-1.035 Urine Protein 1+ H Negative Urine Ketones Negative Negative Urine Blood 2+ H Negative /uL Urine Nitrite Negative Negative Urine Bilirubin Negative Negative Urine Urobilinogen Normal Negative mg/dL Urine Leukocyte Esterase 3+ Negative /uL Urine RBC 62 0 - 4 /hpf Urine Microscopic WBC 851 H 0-5 /HPF Urine Squamous Epithelial Cells Few <5 /hpf Urine Bacteria None seen None Seen /hpf Urine Yeast (Budding) Occasional None Seen /hpf Urine Glucose 2+ H Normal mg/dL Urine Opiates Screen Pos NEGATIVE Urine Fentanyl Screen Neg NEGATIVE Urine Barbiturates Screen Neg NEGATIVE Urine Phencyclidine Screen Neg NEGATIVE Urine Amphetamines Screen Neg NEGATIVE Urine Benzodiazepines Screen Neg NEGATIVE Urine Cocaine Screen Neg NEGATIVE Urine Cannabinoids Screen Neg NEGATIVE Eosinophils (%) (Auto) 3.5 0.0-7.0 % Eosinophils # (Auto) 0.3 0-0.8 10 ^3/uL Basophils # (Auto) 0.1 0-0.2 10 ^3/uL Nucleated Red Blood Cells 0.5 % Platelet Estimate Adequate Sodium Level 141 136-145 mmol/L Potassium Level 4.0 3.5-5.1 mmol/L Chloride Level 102 98-107 mmol/L Carbon Dioxide Level 26 20-31 mmol/L Anion Gap 13 5-15 Blood Urea Nitrogen 18 9-23 mg/dL Creatinine 1.15 H 0.550-1.02 mg/dL Glomerular Filtration Rate Calc 54 >90 mL/min BUN/Creatinine Ratio 15.7 10.0-20.0 Serum Glucose 201 H 74-106 mg/dL Calcium Level 9.6 8.7-10.4 mg/dL Total Bilirubin 0.3 0.2-1.0 mg/dL Aspartate Amino Transferase (AST) 9 L 13-40 U/L Alanine Aminotransferase (ALT) < 9 7-40 U/L Alkaline Phosphatase 119 H 46-116 U/L Total Protein 7.1 5.7-8.2 g/dL Albumin 4.6 3.2-4.8 g/dL Test 01/16/25 00:28 01/15/25 23:32 Range/Units Troponin I High Sensitivity < 3 L </=34 ng/L D-Dimer, Quantitative 0.33 0.0-0.49 mg/L FEU B-Type Natriuretic Peptide 13.01 0-100 pg/mL Plan/Recommendation This is 59-year-old female known outside to our practice who initially presented 01/15/2025 with reported atypical like chest discomfort and lower abdominal pains. Upon ED arrival initial 12-lead electrocardiogram had revealed sinus rhythm with no acute ischemic changes. Serial HS troponin had been found negative (<3, <3). D-Dimer had been found normal at 0.33. BNP level was found normal at 13.01 which subsequent chest imaging had revealed no evidence for acute cardiopulmonary findings. Serial chest/abdominal xrays have reveale no acute intra-abdominal findings. Of note, patient has been found to have acute urinary tract infection which she had been initiated on IV antibiotic therapy as managed by primary team. Of note, patient does have baseline history of coronary artery disease. During earlier admission in June/2024, the patient did have some chest pain with abnormal troponin and was found to have non-STEMI. Cardiac catheterization at that point revealed multivessel coronary artery disease and the patient was sent to [facility] for the suggested CABG surgery. It seems that in [place] they did not do the CABG and the patient had only 1 stent. Later the patient was discharged home from [facility]. In the middle of July patient came back with chest discomfort to our facility and with diagnosis of unstable angina was sent back to [facility]. In [place], the patient again had another stent. I had an opportunity to talk to the cutting pressman in [place]. It seems that during the 1st admission to [facility], they did put 1 stent in LAD. During the 2nd admission they put another stent in circumflex. It is of note that the patient did have LAD with trifurcation with disease in all of them. Reportedly (as per cutting pressman in [place]) LAD stent has resulted in pinching of the diagonals. At present patient mentions compliance with DAPT (Aspirin/Plavix). At present, patient has remained hemodynamically stable. Cardiology services were subsequently involved by primary team request for cardiac aspects of care. 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 She has had kidney stones/hydronephrosis/hydroureter before. Uses a walker for ambulation (sec ondary to old CVA). Patient was found to have multivessel coronary artery disease (left heart catheterization of July 09, 2024). On July 12 2024, the patient was sent to higher level of care ([facility]) for possible CABG surgery. Patient ended up having 1 stent in LAD and CABG was not performed. At next presentation, (still in July 2024) patient was sent back to [facility] and had another stent (this time in LCX). Reportedly the patient does have pinching of diagonals. Echocardiogram of December 16, 2022 (performed in [facility]) revealed ejection fraction of 60%, mild TR and right ventricular systolic pres sure of 27 mm Hg. Echocardiogram of October 18, 2023 reported ejection fraction 55-60%, mild MR/TR and right ventricular systolic pressure of 25 mm Echocardiogram of May 05, 2024 revealed ejection fraction of 50-55%, normal diastolic, trace MR/TR and right ventricular systolic pressure of 28 mm Hg Echocardiogram of July 05, 2024 had revealed ejection fraction of 40%, trace MR/TR and right ventricular systolic pressure of 30 mm Hg Echocardiogram of July 29, 2024 revealed ejection fraction of 50-55%, no wall motion abnormality, trace mitral regurgitation, no tricuspid regurgitation. As there was no good tricuspid regurgitation jet, right ventricular systolic pressure could not be estimated Echocardiogram of November 12, 2024 revealed: LVEF of 60%, no wall motion abnormality. Trace mitral/tricuspid regurgitation. Right ventricular systolic pressure of 28 mm Hg Nuclear stress test of January 03, 2022 (performed as outpatient) revealed ejection fraction of 80% and no evidence for ischemia/scar. Left heart catheterization of July 09 2024 had revealed triple-vessel coronary artery disease ASSESSMENT: Chest pain (Atypical), ACS not considered Lower abdominal pains, likely secondary to underlying UTI Triple-vessel coronary artery disease, s/p previous PCI (drug-eluting stent deployment of LAD and LCX).. Noncompliance with medication and followups Status post carotid endarterectomy Diverticular disease, history of Old history of previous CVA Ulcerative colitis, history of Crohn disease, history of Hyperlipidemia CARDIAC SUGGESTIONS FOR MANAGEMENT: Recognizing clinical presentation/objective findings, ACS at this point is not considered No indication warranted for ischemic workup at present time of admission To proceed with optimized medical therapy and risk factor modification IV antibiotic therapy as per primary team Proceed with DAPT (Aspirin and Plavix) Diltiazem ER 120mg once daily Ranolazine 500mg twice daily Isosorbide 30mg once daily Proceed with close rate and rhythm surveillance Proceed with close hemodynamic surveillance Proceed with optimized blood pressure control Transfuse to sustain HGB level above 7.0 Sustain Magnesium level greater than 2.0 Sustain Potassium level greater than 4.0 Follow up renal function and electrolytes Management in telemetry Follow up franchise consultant recommendations Will proceed to follow from a cardiac perspective Further recommendations per clinical progression Cardiac-harrison, stable All available diagnostic labs, EKG's, and images were personally reviewed Patient's status, findings, and plan of care was reviewed and discussed with supervising physician Dr. Nunez, who is in agreement with current plan of care. Plan of care discussed with and agreed upon by patient / primary RN Prognosis: Guarded Thank you for allowing me to participate in the care of this patient. Further recommendations based on patients clinical course and progression, primary attending, and other consultants. Will continue to follow with primary a ttending. If you have any questions or concerns, please do not hesitate to contact me. A total of 75 minutes was spent reviewing the patient record, examining the patient, making a diagnostic and therapeutic plan, discussing this plan with medical personnel, following up on diagnostic studies and following the patient for clinical stability excluding any and all procedures. At least 50% of this time was spent in direct, [id number] contact. Plan discussed with: Patient (patient and primary rn ) UYEN MÁRQUEZ Jan 17, 2025 06:41
[2025-01-17 06:45] LABS: Hematocrit 40.6 % (36.0-46.0); Hemoglobin 13.9 g/dL (12.2-16.2); Mean Corpuscular Hemoglobin 30.7 pg (28.0-32.0); Mean Corpuscular Volume 89.4 fL (80.0-100.0); Nucleated Red Blood Cells % 0.1 %
[2025-01-17 07:08] LABS: Albumin 4.1 g/dL (3.2-4.8); Alkaline Phosphatase 108 U/L (46-116); Anion Gap 10 (5-15); BUN/Creatinine Ratio 12.8 (10.0-20.0); Blood Urea Nitrogen 12 mg/dL (9-23); Calcium 9.1 mg/dL (8.7-10.4); Carbon Dioxide 26 mmol/L (20-31); Chloride 103 mmol/L (98-107); Potassium 4.0 mmol/L (3.5-5.1); Sodium 139 mmol/L (136-145); Total Protein 6.4 g/dL (5.7-8.2)
[2025-01-17 07:09] LABS: Bilirubin, Total 0.5 mg/dL (0.2-1.0)
[2025-01-17 07:14] LABS: Alanine Aminotransferase < 9 U/L (7-40); Glucose 146 mg/dL (74-106)
[2025-01-17] MEDS ORDERED: LACTULOSE 20Gm/30ML SOLN PO PRN (10:15)
--- NOTE | 2025-01-17 17:22 | DVH ---
EXAM: XY KUB ABDOMEN SINGLE VIEW HISTORY: abdomen/ pelvic pain COMPARISON: XY KUB ABDOMEN SINGLE VIEW on DOS: 01/16/25 TECHNIQUE: Supine view of the abdomen FINDINGS/IMPRESSION: Nonobstructive bowel gas pattern noted. There is no evidence for pneumoperitoneum. No abnormal calcif ications noted. Moderate to severe stool burden predominantly within the sigmoid colon to rectum. Co rrelate for constipation
[2025-01-17] MEDS: GOLYTELY 4L KIT PO ONE (18:54)
[2025-01-17] MEDS: RANOLAZINE ER 500 MG TAB PO SCH (22:19)
[2025-01-18 01:00] VITALS: BP 118/84; PULSE 86; RESP 19; TEMP 99; O2SAT 95
[2025-01-18 05:00] VITALS: BP 120/74; PULSE 68; RESP 18; TEMP 99.1; O2SAT 94
--- NOTE | 2025-01-18 07:00 | DVHPN2 ---
Progress Note - Dictate Date Seen: Jan 18, 2025 Medical Necessity Reason Pt with a Central, PICC or Fol: No vital signs Vital Sign Date Time Temp Pulse Resp B/P (MAP) Pulse Ox O2 Delivery O2 Flow Rate FiO2 01/18/25 05:00 99.1 68 18 120/74 (89) 94 99.1 01/17/25 20:00 Room Air* 0 21 Total Intake and Output 01/17/25 01/17/25 01/18/25 15:00 23:00 07:00 Intake Total 50 ml 675 ml 100 ml Balance 50 ml 675 ml 100 ml medications Current Medications Medications Dose Ordered Sig/Damon Route Start Time Stop Time Status Last Admin Dose Admin Aspirin 81 mg DAILY PO 01/16/25 10:00 01/17/25 09:20 81 MG Atorvastatin Calcium 20 mg HS PO 01/16/25 22:00 01/17/25 22:19 20 MG Diagnostic Test (Pha) 1 strip ACHS 01/16/25 07:00 01/18/25 06:03 1 STRIP Insulin Human Regular ACHS SC 01/16/25 07:00 01/18/25 06:14 2 UNITS Dextrose 50 ml UD PRN IV 01/16/25 03:30 Sodium Chloride 10 ml Q8HR IV 01/16/25 06:00 01/18/25 05:57 10 ML Acetaminophen/ Hydrocodone Bitart 1 tab Q4HP PRN PO 01/16/25 03:30 01/16/25 17:26 1 TAB Ondansetron HCl 4 mg Q4HP PRN IV 01/16/25 03:30 Docusate Sodium 100 mg BIDPRN PRN PO 01/16/25 03:30 Acetaminophen 650 mg Q6HP PRN PO 01/16/25 03:30 Nitroglycerin 0.4 mg Q5MINP PRN SL 01/16/25 04:00 Morphine Sulfate 2 mg Q30M PRN IV 01/16/25 04:00 Hydromorphone HCl 0.5 mg Q4HPRN PRN IV 01/16/25 04:00 01/18/25 03:06 0.5 MG Ceftriaxone Sodium 50 ml @ 100 mls/hr DAILY@09 IV 01/17/25 09:00 01/17/25 09:20 100 MLS/HR Lactulose 30 ml Q6HPRN PRN PO 01/17/25 10:15 Ranolazine 500 mg BID PO 01/17/25 22:00 01/17/25 22:19 500 MG Isosorbide Mononitrate 30 mg DAILY PO 01/18/25 10:00 Diltiazem HCl 120 mg DAILY PO 01/18/25 10:00 laboratory and microbiology Laboratory Tests 01/17/25 05:35 Test 01/17/25 05:35 Range/Units Serum Glucose 146 H 74-106 mg/dL Assessment/Plan Plan/Recommendation This is 59-year-old female known outside to our practice who initially presented 01/15/2025 with reported atypical like chest discomfort and lower abdominal pains. Upon ED arrival initial 12-lead electrocardiogram had revealed sinus rhythm with no acute ischemic changes. Serial HS troponin had been found negative (<3, <3). D-Dimer had been found normal at 0.33. BNP level was found normal at 13.01 which subsequent chest imaging had revealed no evidence for acute cardiopulmonary findings. Serial chest/abdominal xrays have reveale no acute intra-abdominal findings. Of note, patient has been found to have acute urinary tract infection which she had been initiated on IV antibiotic therapy as managed by primary team. Of note, patient does have baseline history of coronary artery disease. During earlier admission in June/2024, the patient did have some chest pain with abnormal troponin and was found to have non-STEMI. Cardiac catheterization at that point revealed multivessel coronary artery disease and the patient was sent to [facility] for the suggested CABG surgery. It seems that in [facility] they did not do the CABG and the patient had only 1 stent. Later the patient was discharged home from [facility]. In the middle of July patient came back with chest discomfort to our facility and with diagnosis of unstable angina was sent back to [facility]. In [facility], the patient again had another stent. I had an opportunity to talk to the locker plant attendant in [facility]. It seems that during the 1st admission to [facility], they did put 1 stent in LAD. During the 2nd admission they put another stent in circumflex. It is of note that the patient did have LAD with trifurcation with disease in all of them. Reportedly (as per locker plant attendant in [facility]) LAD stent has resulted in pinching of the diagonals. At present patient mentions compliance with DAPT (Aspirin/Plavix). At present, patient has remained hemodynamically stable. Cardiology services were subsequently involved by primary team request for cardiac aspects of care. 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 She has had kidney stones/hydronephrosis/hydroureter before. Uses a walker for ambulation (secondary to old CVA). Patient was found to have multivessel coronary artery disease (left heart catheterization of July 09, 2024). On July 12 2024, the patient was sent to higher level of care ([facility]) for possible CABG surgery. Patient ended up having 1 stent in LAD and CABG was not performed. At next presentation, (still in July 2024) patient was sent back to [facility] and had another stent (this time in LCX). Reportedly the patient does have pinching of diagonals. Echocardiogram of December 16, 2022 (performed in [facility]) revealed ejection fraction of 60%, mild TR and right ventricular systolic pressure of 27 mm Hg. Echocardiogram of October 18, 2023 reported ejection fraction 55-60%, mild MR/TR and right ventricular systolic pressure of 25 mm Echocardiogram of May 05, 2024 revealed ejection fraction of 50-55%, normal diastolic, trace MR/TR and right ventricular systolic pressure of 28 mm Hg Echocardiogram of July 05, 2024 had revealed ejection fraction of 40%, trace MR/TR and right ventricular systolic pressure of 30 mm Hg Echocardiogram of July 29, 2024 revealed ejection fraction of 50-55%, no wall motion abnormality, trace mitral regurgitation, no tricuspid regurgitation. As there was no good tricuspid regurgitation jet, right ventricular systolic pressure could not be estimated Echocardiogram of November 12, 2024 revealed: LVEF of 60%, no wall motion abnormality. Trace mitral/tricuspid regurgitation. Right ventricular systolic pressure of 28 mm Hg Nuclear stress test of January 03, 2022 (performed as outpatient) revealed ejection fraction of 80% and no evidence for ischemia/scar. Left heart catheterization of July 09 2024 had revealed triple-vessel coronary artery disease ASSESSMENT: Chest pain (Atypical), ACS not considered Lower abdominal pains, likely secondary to underlying UTI Triple-vessel coronary artery disease, s/p previous PCI (drug-eluting stent deployment of LAD and LCX).. Noncompliance with medication and followups Status post carotid endarterectomy Diverticular disease, history of Old history of previous CVA Ulcerative colitis, history of Crohn disease, history of Hyperlipidemia CARDIAC SUGGESTIONS FOR MANAGEMENT: Recognizing clinical presentation/objective findings, ACS at this point is not considered No indication warranted for ischemic workup at present time of admission To proceed with optimized medical therapy and risk factor modification IV antibiotic therapy as per primary team Proceed with DAPT (Aspirin and Plavix) Diltiazem ER 120mg once daily Ranolazine 500mg twice daily Isosorbide 30mg once daily Proceed with close rate and rhythm surveillance Proceed with close hemodynamic surveillance Proceed with optimized blood pressure control Transfuse to sustain HGB level above 7.0 Sustain Magnesium level greater than 2.0 Sustain Potassium level greater than 4.0 Follow up renal function and electrolytes Management in telemetry Follow up safety consultant recommendations Will proceed to follow from a cardiac perspective Further recommendations per clinical progression Cardiac-harrison, stable and can be managed outpatient All available diagnostic labs, EKG's, and images were personally reviewed Patient's status, findings, and plan of care was reviewed and discussed with supervising physician Dr. Nunez, who is in agreement with current plan of care. Plan of care discussed with and agreed upon by patient / primary RN Prognosis: Guarded Thank you for allowing me to participate in the care of this patient. Further recommendations based on patients clinical course and progression, primary attending, and other consultants. Will continue to follow with primary attending. If you have any questions or concerns, please do not hesitate to contact me. A total of 75 minutes was spent reviewing the patient record, examining the patient, making a diagnostic and therapeutic plan, discussing this plan with medical personnel, following up on diagnostic studies and following the patient for clinical stability excluding any and all procedures. At least 50% of this time was spent in direct, [id number] contact. Plan discussed with: Patient (patient and primary rn ) Plan discussed with: Patient (patient and primary rn ) UYEN MÁRQUEZ Jan 18, 2025 07:00
[2025-01-18 08:00] VITALS: PULSE 78; PULSE 82
[2025-01-18 08:08] VITALS: BP 147/92; PULSE 75; RESP 17; TEMP 98.7; O2SAT 96
[2025-01-18] MEDS: dilTIAZem 120MG ER CAP PO SCH (09:05)
[2025-01-18] MEDS: ISOSORBIDE MONONITRATE ER 60 MG TAB PO SCH (09:06)
[2025-01-18 09:51] LABS: Hematocrit 41.0 % (36.0-46.0); Hemoglobin 14.0 g/dL (12.2-16.2); Mean Corpuscular Hemoglobin 30.3 pg (28.0-32.0); Mean Corpuscular Volume 88.9 fL (80.0-100.0); Nucleated Red Blood Cells % 0.2 %
[2025-01-18 09:54] LABS: Chloride 104 mmol/L (98-107); Potassium 4.0 mmol/L (3.5-5.1); Sodium 141 mmol/L (136-145)
[2025-01-18 09:55] LABS: Anion Gap 11 (5-15); Carbon Dioxide 26 mmol/L (20-31)
[2025-01-18 09:56] LABS: Calcium 9.4 mg/dL (8.7-10.4)
[2025-01-18 10:00] LABS: BUN/Creatinine Ratio 9.5 (10.0-20.0)
[2025-01-18 10:10] LABS: Blood Urea Nitrogen 8 mg/dL (9-23); Glucose 139 mg/dL (74-106)
--- NOTE | 2025-01-18 10:46 | DVH ---
Date: 01/18/2025 10:04 AM Examination: XY KUB ABDOMEN SINGLE VIEW 2 images received History: constipation Comparison: XY KUB ABDOMEN SINGLE VIEW on DOS: 01/17/25, XY KUB ABDOMEN SINGLE VIEW on DOS: 01/16/25 TECHNIQUE: Frontal views of the abdomen was obtained. FINDINGS: Bowel gas pattern is unremarkable. Stool throughout the colon may represent constipation. The lung bases are unremarkable. No acute osseous abnormality identified. IMPRESSION: 1. Nonobstructive bowel gas pattern. 2. Stool throughout the colon may represent constipation.
[2025-01-18] MEDS ORDERED: LACT10SO3 PO (12:09)
--- NOTE | 2025-01-18 12:11 | DVHDS2 ---
Discharge Summary Date of Admission Jan 16, 2025 at 03:52 Date of Discharge: Jan 18, 2025 Admitting Diagnosis Chest pain rule out acute coronary syndrome Labs/Diagnostic Data: Laboratory Results Test 01/18/25 09:20 01/18/25 05:53 01/17/25 05:35 01/16/25 08:21 White Blood Count 5.7 10^3/uL (4.4-10.8) Red Blood Count 4.61 10^6/uL (4.0-5.20) Hemoglobin 14.0 g/dL (12.2-16.2) Hematocrit 41.0 % (36.0-46.0) Mean Corpuscular Volume 88.9 fL (80.0-100.0) Mean Corpuscular Hemoglobin 30.3 pg (28.0-32.0) Mean Corpuscular Hemoglobin Concent 34.1 g/dL (32.0-36.0) Red Cell Distribution Width 14.3 % (11.8-14.3) Platelet Count 238 10^3/uL (140-450) Mean Platelet Volume 8.3 fL (6.9-10.8) Neutrophils (%) (Auto) 57.8 % (37.0-80.0) Lymphocytes (%) (Auto) 34.2 % (10.0-50.0) Monocytes (%) (Auto) 4.6 % (0.0-12.0) Eosinophils (%) (Auto) 2.9 % (0.0-7.0) Basophils (%) (Auto) 0.5 % (0.0-2.0) Neutrophils # (Auto) 3.3 10 ^3/uL (1.6-8.6) Lymphocytes # (Auto) 2.0 10 ^3/uL (0.4-5.4) Monocytes # (Auto) 0.3 10 ^3/uL (0-1.3) Eosinophils # (Auto) 0.2 10 ^3/uL (0-0.8) Basophils # (Auto) 0 10 ^3/uL (0-0.2) Nucleated Red Blood Cells 0.2 % Sodium Level 141 mmol/L (136-145) Potassium Level 4.0 mmol/L (3.5-5.1) Chloride Level 104 mmol/L (98-107) Carbon Dioxide Level 26 mmol/L (20-31) Anion Gap 11 (5-15) Blood Urea Nitrogen 8 mg/dL (9-23) Creatinine 0.84 mg/dL (0.550-1.02) Glomerular Filtration Rate Calc 79 mL/min (>90) BUN/Creatinine Ratio 9.5 (10.0-20.0) Serum Glucose 139 mg/dL (74-106) Calcium Level 9.4 mg/dL (8.7-10.4) POC Glucose 160 mg/dl (70-106) Total Bilirubin 0.5 mg/dL (0.2-1.0) Aspartate Amino Transferase (AST) 27 U/L (13-40) Alanine Aminotransferase (ALT) < 9 U/L (7-40) Alkaline Phosphatase 108 U/L (46-116) Total Protein 6.4 g/dL (5.7-8.2) Albumin 4.1 g/dL (3.2-4.8) Urine Color Yellow (Yellow) Urine Clarity Ex.turbid (Clear) Urine pH 5.5 (5.0-9.0) Urine Specific [place] 1.028 (1.001-1.035) Urine Protein 1+ (Negative) Urine Ketones Negative (Negative) Urine Blood 2+ /uL (Negative) Urine Nitrite Negative (Negative) Urine Bilirubin Negative (Negative) Urine Urobilinogen Normal mg/dL (Negative) Urine Leukocyte Esterase 3+ /uL (Negative) Urine RBC 62 /hpf (0 - 4) Urine Microscopic WBC 851 /HPF (0-5) Urine Squamous Epithelial Cells Few /hpf (<5) Urine Bacteria None seen /hpf (None Seen) Urine Yeast (Budding) Occasional /hpf (None Urine Glucose 2+ mg/dL (Normal) Urine Opiates Screen Pos (NEGATIVE) Urine Fentanyl Screen Neg (NEGATIVE) Urine Barbiturates Screen Neg (NEGATIVE) Urine Phencyclidine Screen Neg (NEGATIVE) Urine Amphetamines Screen Neg (NEGATIVE) Urine Benzodiazepines Screen Neg (NEGATIVE) Urine Cocaine Screen Neg (NEGATIVE) Urine Cannabinoids Screen Neg (NEGATIVE) Test 01/16/25 04:46 01/16/25 00:28 01/15/25 23:32 Platelet Estimate Adequate Troponin I High Sensitivity < 3 ng/L (</=34) D-Dimer, Quantitative 0.33 mg/L FEU (0.0-0.49) B-Type Natriuretic Peptide 13.01 pg/mL (0-100) Other Laboratory Tests 01/18/25 09:20 Brief Hx & Hospital Course: Patient was admitted for chest pain, acute coronary syndrome was ruled out. Troponins were found to be negative x3. Patient was seen and cleared by Cardiology. Patient was found to have UTI and we will be sent home on Cipro 500 b.i.d. x7 days. KUB was showing constipation. Patient was given lactulose and was able to have bowel movement. Patient is to follow up with her PCP within one week of discharge. Condition at Discharge: Fair Final Diagnosis/Problems List Acute Cystitis with Hematuria and Sepsis Chest Pain [facility] musculoskeletal Liver Disease Morbid Obesity constipation Discharge Disposition: Home Discharge Instruct/Medications Diet: Cardiac 2g Na,low cholest Activity: No Restrictions, As Tolerated Follow Up/Referral: PCP within 1 week Scheduled Aspirin (Aspirin Low Dose), 1 TAB PO DAILY, (Reported) Atorvastatin Calcium (Atorvastatin Calcium), 1 TAB PO DAILY, (Reported) Balsalazide Disodium (Balsalazide Disodium), 3 CAP PO BID, (Reported) Cholecalciferol (Vitamin D-3 Super Strengt), 1 TAB PO DAILY, (Reported) Clopidogrel Bisulfate (Clopidogrel), 1 TAB PO DAILY, (Reported) Docusate Sodium (Docusate Sodium), 1 CAP PO BID, (Reported) Furosemide (Furosemide), 1 TAB PO BID, (Reported) Gabapentin (Gabapentin), 1 CAP PO Q8HR, (Reported) Isosorbide Mononitrate (Isosorbide Mononitrate Er), 1 TAB PO DAILY Lactulose (Lactulose), 10 GM PO BID Lidocaine (Lidoderm 5% Topical Patch), 1 PATCH TOP DAILY Paroxetine Hydrochloride (Paroxetine Hydrochloride), 1 TAB PO DAILY, (Reported) Polyethylene Glycol 3350 (Miralax), 17 GM PO DAILY Potassium Chloride (Potassium Chloride ER), 1 TAB PO BID, (Reported) Ranolazine (Ranolazine ER), 500 MG PO BID Simvastatin (Simvastatin), 1 TAB PO DAILY, (Reported) Sitagliptin Phosphate (Januvia), 1 TAB PO DAILY, (Reported) Tirzepatide (Mounjaro), 7.5 MG SC QWEEKLY, (Reported) Scheduled PRN Albuterol Sulfate (Albuterol Sulfate Hfa), 108 MCG IN BID PRN Baclofen (Baclofen), 5 MG PO Q8HP PRN Hydrocodone-Acetaminophen (Hydrocodone Bitartrate/AC 10-325 mg), 1 TAB PO Q6HR PRN for CHRONIC PAIN, (Reported) Hydrocodone-Acetaminophen (Hydrocodone Bitartrate/AC 5-325 mg), 1 TAB PO Q8HP PRN Discontinued Medications Metronidazole (Flagyl), 500 MG PO TID Discharge Statement: "Patient was advised to return to the ER or call 911 if any headaches, dizziness, shortness of breath, chest pain, abdominal pain, bleeding, fevers, or worsening of medical condition. Patient was counseled about treatment plan, medications, possible side effects, patientverbalized understanding. All questions were answered to the best of my ability. This discharge took greater then 30 minutes in planning, reviewing documentation, counseling the patient, and discussing with other team members." ASSESSMENT ASSESSMENT Assessment Acute Cystitis with Hematuria and Sepsis Chest Pain yuliya musculoskeletal Liver Disease Morbid Obesity constipation TAMI ROOT Jan 18, 2025 12:11
[2025-01-18 12:28] VITALS: BP 96/64; PULSE 90; RESP 17; TEMP 97.2; O2SAT 95
[2025-01-18 13:00] VITALS: BP_SYST 100; BP_SYST 95; BP_DIAS 51; BP_DIAS 64; PULSE 82; PULSE 88; RESP 18; TEMP 97.6; TEMP 98.4; O2SAT 94; O2SAT 99
[2025-01-18] MEDS ORDERED: CIPR500T4 PO (15:59)
== END 2025-01-18 14:12 | disposition home or self-care (01) | DRG 872 ==
LOC: EDBD 23:18 → ER 23:18 → OVERFLOW 01-16 03:52 → TELE-EAST 01-16 12:12
PROVIDERS: ADMIT Family Medicine; ATTEND Family Medicine
DX: A41.9 Sepsis, unspecified organism (principal); N30.01 Acute cystitis with hematuria; K50.90 Crohn's disease, unspecified, without complications; I69.354 Hemiplegia and hemiparesis following cerebral infarction affecting left non-dominant side; I25.10 Atherosclerotic heart disease of native coronary artery without angina pectoris; K59.00 Constipation, unspecified; I11.0 Hypertensive heart disease with heart failure; M51.369 Other intervertebral disc degeneration, lumbar region without mention of lumbar back pain or lower extremity pain; E11.9 Type 2 diabetes mellitus without complications; E78.5 Hyperlipidemia, unspecified; N20.0 Calculus of kidney; R07.89 Other chest pain; K76.9 Liver disease, unspecified; E66.01 Morbid (severe) obesity due to excess calories; I69.320 Aphasia following cerebral infarction; Z68.32 Body mass index [BMI] 32.0-32.9, adult; Z91.040 Latex allergy status; Z79.899 Other long term (current) drug therapy; Z98.61 Coronary angioplasty status; Z91.148 Patient's other noncompliance with medication regimen for other reason; Z90.49 Acquired absence of other specified parts of digestive tract; Z85.41 Personal history of malignant neoplasm of cervix uteri; Z85.038 Personal history of other malignant neoplasm of large intestine; Z80.3 Family history of malignant neoplasm of breast; Z82.0 Family history of epilepsy and other diseases of the nervous system; Z80.0 Family history of malignant neoplasm of digestive organs; Z82.49 Family history of ischemic heart disease and other diseases of the circulatory system; Z83.3 Family history of diabetes mellitus; Z83.49 Family history of other endocrine, nutritional and metabolic diseases; I25.2 Old myocardial infarction; Z79.82 Long term (current) use of aspirin; I50.9 Heart failure, unspecified
CPT/HCPCS: 36415; 71045; 74018; 80048; 80053; 80307; 81001; 82962; 83880; 84484; 85025; 85379; 87040; 87081; 87086; 93005; 96374; G0378; J1815

== ENCOUNTER 2025-02-23 13:13 | Emergency (ER) | payer MEDICARE, MEDICAID ==
[~2025-02-23] VITALS: Ht 157.5 cm; Wt 84.3 kg
[~2025-02-23 13:13] MED LIST changes: +CIPR500T4 PO; +LACT10SO3 PO; -METR-344 PO
[2025-02-23 13:52] LABS: Hematocrit 41.1 % (36.0-46.0); Hemoglobin 13.7 g/dL (12.2-16.2); Mean Corpuscular Hemoglobin 30.3 pg (28.0-32.0); Mean Corpuscular Volume 91.2 fL (80.0-100.0); Nucleated Red Blood Cells % 0.1 %
[2025-02-23 14:02] LABS: INR 0.95 (0.9-1.15); Partial Thromboplastin Time < 20.0 SEC (24.5-34.5); Prothrombin Time 10.1 sec (9.3-11.8)
[2025-02-23 14:07] LABS: Albumin 4.1 g/dL (3.2-4.8); Anion Gap 12 (5-15); BUN/Creatinine Ratio 10.5 (10.0-20.0); Blood Urea Nitrogen 16 mg/dL (9-23); Calcium 9.4 mg/dL (8.7-10.4); Carbon Dioxide 29 mmol/L (20-31); Magnesium 1.9 mg/dL (1.6-2.6); Potassium 4.2 mmol/L (3.5-5.1); Sodium 137 mmol/L (136-145); Total Protein 6.6 g/dL (5.7-8.2)
[2025-02-23 14:08] LABS: Alanine Aminotransferase < 9 U/L (7-40); Alkaline Phosphatase 155 U/L (46-116); Bilirubin, Total 0.5 mg/dL (0.2-1.0); Chloride 96 mmol/L (98-107)
[2025-02-23 14:10] LABS: Glucose 468 mg/dL (74-106)
--- NOTE | 2025-02-23 14:22 | ECG ---
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
--- NOTE | 2025-02-23 15:01 | ED.PDOC ---
HPI Comments This is a 59 year old female presenting to the ED with chief complaint of chest pain. 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 Patient relays that she had taken Nitroglycerin with no relief noted. Patient states that she has an OR on June of this year along with 2 cardiac stents placed. Was just admitted here to this hospital 1 month ago for the same and was cleared by Cardiology after having serial negative troponins. Does report having a history of similar recurrent chest pain over the past several months. Patient denies any fever, cough, SOB, dizziness, headache, or syncope. Chief Complaint: Chest Pain Time Seen by MD: 15:04 Primary Care Provider: unknown Reviewed Notes: Nurses Notes, Medications, Allergies Allergies: Coded Allergies: Latex (Verified Allergy, Mild, 06/02/24) INCLUDING TAPE, BROWN AND CLEAR TAPE Home Meds Active Scripts Ciprofloxacin Hcl (Ciprofloxacin Hcl) 500 Mg Tab, 1 TAB PO BID for 7 Days, #14 TAB Prov:TAMI ROOT SPINNER CAP FRAME 01/18/25 Lactulose (Lactulose) 10 Gm/15 Ml [place], 10 GM PO BID for 30 Days, #120 ML Prov:TAMI ROOT 01/18/25 Hydrocodone-Acetaminophen (Hydrocodone Bitartrate/AC 5-325 mg) 1 Tab Tab, 1 TAB PO Q8HP PRN for 5 Days, #15 TAB Prov:SEAN ZEPEDA MD 09/30/24 Ranolazine (Ranolazine ER) 500 Mg Tab, 500 MG PO BID for 30 Days, #60 TAB Prov:TED HUSSEIN NP 07/30/24 Baclofen (Baclofen) 10 Mg Tab, 5 MG PO Q8HP PRN for 7 Days, #21 TAB Prov:TED HUSSEIN NP 07/30/24 Isosorbide Mononitrate (Isosorbide Mononitrate Er) 30 Mg Tab, 1 TAB PO DAILY, #30 TAB 5 Refills Prov:TED HUSSEIN NP 07/30/24 Lidocaine (LIDODERM 5% TOPICAL PATCH) 1 Patch Ph, 1 PATCH TOP DAILY for 30 Days, #30 PATCH 0 Refills Prov:MIAN ROMO NP 06/02/24 Polyethylene Glycol 3350 (Miralax) 17 Gm Pow, 17 GM PO DAILY for 15 Days, #15 POW Prov:TED HUSSEIN ANTHROPOLOGY INSTRUCTOR 05/03/24 Albuterol Sulfate (Albuterol Sulfate Hfa) 108 Mcg/Act Aer, 108 MCG IN BID PRN for 10 Days, #1 AER 0 Refills Prov:LUNSFORDLILI Rachell DO 12/01/22 Reported Medications Docusate Sodium (Docusate Sodium) 100 Mg Cap, 1 CAP PO BID for 30 Days, #60 07/03/24 Simvastatin (Simvastatin) 20 Mg Tab, 1 TAB PO DAILY for 90 Days, #90 07/03/24 Hydrocodone-Acetaminophen (Hydrocodone Bitartrate/AC 10-325 mg) 1 Tab Tab, 1 TAB PO Q6HR PRN for CHRONIC PAIN for 30 Days, #120 07/03/24 Potassium Chloride (Potassium Chloride ER) 10 Meq Tab, 1 TAB PO BID for 90 Days, #180 07/03/24 Paroxetine Hydrochloride (Paroxetine Hydrochloride) 20 Mg Tab, 1 TAB PO DAILY for 90 Days, #90 05/01/24 Tirzepatide (Mounjaro) 7.5 Mg/0.5 Ml Inj, 7.5 MG SC QWEEKLY for 28 Days, #2 10/18/23 Sitagliptin Phosphate (Januvia) 100 Mg Tab, 1 TAB PO DAILY 10/18/23 Clopidogrel Bisulfate (CLOPIDOGREL) 75 Mg Tab, 1 TAB PO DAILY 10/18/23 Furosemide (Furosemide) 40 Mg Tab, 1 TAB PO BID 10/18/23 Atorvastatin Calcium (ATORVASTATIN CALCIUM) 20 Mg Tab, 1 TAB PO DAILY 10/17/23 Cholecalciferol (Vitamin D-3 Super Strengt) 2,000 Unit Tab, 1 TAB PO DAILY 10/17/23 Gabapentin (Gabapentin) 300 Mg Cap, 1 CAP PO Q8HR for NEUROPATHIC PAIN for 30 Days, #90 10/17/23 Aspirin (Aspirin Low Dose) 81 Mg Tab, 1 TAB PO DAILY 10/17/23 Balsalazide Disodium (Balsalazide Disodium) 750 Mg Cap, 3 CAP PO BID for 30 Days, #180 10/17/23 Information Source: Patient Mode of Arrival: Ambulatory Severity: Moderate Timing: Hours Duration: Since onset Prehospital treatment: NTG Location: Chest (L) Radiation: No Radiation Quality: Sharp Onset: At Rest Cardiac Risk Factors: Hyperlipidemia, HTN, Diabetes History of: Similar pain in past, OR Past Medical History PAST MEDICAL HISTORY: Angina, CAD, Cancer, CHF, CVA, DM, High Lipids, Kidney Stones, Liver, OR Surgical History: Cholecystectomy, Hernia Repair, [employer] TV NEWS DIRECTOR History: No Pertinent TV NEWS DIRECTOR History Family History Family History: Reviewed,noncontributory to illness, Family hx of Cancer, Family hx of heart naveen Social History Smoker: Non-Smoker Alcohol: Denies ETOH Use Drugs: Denies Drug Use Lives In: Home Constitutional: denies: chills, diaphoresis, fatigue, fever, malaise, sweats, weakness, others EENTM: denies: blurred vision, double vision, ear bleeding, ear discharge, ear drainage, ear pain, ear ringing, eye pain, eye redness, hearing loss, mouth pain, mouth swelling, nasal discharge, nose bleeding, nose congestion, nose pain, photophobia, tearing, throat pain, throat swelling, voice changes, others Respiratory: denies: cough, hemoptysis, orthopnea, SOB at rest, shortness of breath, SOB with excertion, stridor, wheezing, others Cardiovascular: reports: chest pain; denies: dizzy spells, diaphoresis, Dyspnea on exertion, edema, irregular heart beat, left arm pain, lightheadedness, palpitations, PND, syncope, others Gastrointestinal: denies: abdomen distended, abdominal pain, blood streaked bowels, constipated, diarrhea, dysphagia, difficulty swallowing, hematemesis, melena, nausea, poor appetite, poor fluid intake, rectal bleeding, rectal pain, vomiting, others Genitourinary: denies: abnormal vagina bleeding, burning, dyspareunia, dysuria, flank pain, frequency, hematuria, incontinence, pain, , vagina discharge, urgency, others Neurological: denies: dizziness, fainting, headache, left sided numbness, left sided weakness, numbness, paresthesia, pre-existing deficit, right sided numbness, right sided weakness, seizure, speech problems, tingling, tremors, weakness, others Musculoskeletal: denies: back pain, gout, joint pain, joint swelling, muscle pain, muscle stiffness, neck pain, others Integumetry: denies: bruises, change in color, change in hair/nails, dryness, laceration, lesions, lumps, rash, wounds, others Allergic/Immunocompromised: denies: Difficulty Healing, Frequent Infections, Hives, Itching, others Hematologic/Lymphatic: denies: anemia, blood clots, easy bleeding, easy bruising, swollen glands, others Endocrine: denies: excessive hunger, excessive sweating, excessive thirst, excessive urination, flushing, intolerance to cold, intolerance to heat, unexplained weight gain, unexplained weight loss, others Psychiatric: denies: anxiety, bipolar disorder, depression, hopeless, panic disorder, schizophrenia, sleepless, suicidal, others All Other Systems: Reviewed and Negative Physical Exam General Appearance: No Apparent Distress, Normal HEENT: Normal ENT Inspection, Pharynx Normal, TMs Normal Neck: Full Range of Motion, Non-Tender, Normal, Normal Inspection Respiratory: Chest Non-Tender, Lungs Clear, No Accessory Muscle Use, No Respi ratory Distress, Normal Breath Sounds Cardiovascular: No Edema, No JVD, No Murmur, No Gallop, Normal Peripheral Pulses, Regular Rate/Rhythm Breast Exam: Deferred Gastrointestinal: No Organomegaly, Non Tender, No Pulsatile Mass, Normal Bowel Sounds, Soft Genitalia: Deferred Pelvic: Deferred Rectal: Deferred Extremities: No calf tenderness, Normal capillary refill, Normal inspection, Normal range of motion, Non-tender, No pedal edema Musculoskeletal : Apperance: Normal Neurologic: Alert, rivet heater II-XII nml as Tested, No Motor Deficits, Normal Affect, Normal Mood, No Sensory Deficits Cerebellar Function: Normal Reflexes: Normal Skin: Dry, Normal Color, Warm Lymphatic: No Adenopathy EKG EKG #1: Pulse Rate (adult): 71 [place]: Normal Cardiac Rhythm: NSR Block: None Hypertrophy: None ST: Normal Comments Prolonged QTC (725) EKG #2: Pulse Rate (adult): 73 [place]: Normal Cardiac Rhythm: NSR Block: None Hypertrophy: None ST: Normal Comments Prolonged QTC (621) Was a procedure done? Was a procedure done?: No CP Differential Dx Differential Diagnosis: A-fib, Heart Failure, OR, PSVT, Ventricular Dysrhythmia Differential Diagnosis: CHF Differential Diagnosis: Angina, Chest Wall Pain, Costochondritis, Esophageal reflux/spasm X-Ray, Labs, Meds, VS Vital Signs Date Time Temp Pulse Resp B/P (MAP) Pulse Ox O2 Delivery O2 Flow Rate FiO2 02/23/25 20:46 73 02/23/25 16:29 72 16 95 Room Air* 0 21 02/23/25 16:28 98.2 73 16 111/77 (88) 94 98.2 02/23/25 16:21 67 02/23/25 14:21 73 02/23/25 13:18 71 02/23/25 13:17 98.3 72 16 139/70 95 98.3 Lab Test 02/23/25 17:00 02/23/25 13:31 Range/Units POC Glucose 343 H 70-106 mg/dl White Blood Count 6.7 4.4-10.8 10^3/uL Red Blood Count 4.51 4.0-5.20 10^6/uL Hemoglobin 13.7 12.2-16.2 g/dL Hematocrit 41.1 36.0-46.0 % Mean Corpuscular Volume 91.2 80.0-100.0 fL Mean Corpuscular Hemoglobin 30.3 28.0-32.0 pg Mean Corpuscular Hemoglobin Concent 33.2 32.0-36.0 g/dL Red Cell Distribution Width 14.7 H 11.8-14.3 % Platelet Count 169 140-450 10^3/uL Mean Platelet Volume 9.4 6.9-10.8 fL Neutrophils (%) (Auto) 68.4 37.0-80.0 % Lymphocytes (%) (Auto) 24.9 10.0-50.0 % Monocytes (%) (Auto) 4.4 0.0-12.0 % Eosinophils (%) (Auto) 1.8 0.0-7.0 % Basophils (%) (Auto) 0.5 0.0-2.0 % Neutrophils # (Auto) 4.6 1.6-8.6 10 ^3/uL Lymphocytes # (Auto) 1.7 0.4-5.4 10 ^3/uL Monocytes # (Auto) 0.3 0-1.3 10 ^3/uL Eosinophils # (Auto) 0.1 0-0.8 10 ^3/uL Basophils # (Auto) 0 0-0.2 10 ^3/uL Nucleated Red Blood Cells 0.1 % Prothrombin Time 10.1 9.3-11.8 sec Prothrombin Time INR 0.95 0.9-1.15 Activated Partial Thromboplast Time < 20.0 L 24.5-34.5 SEC D-Dimer, Quantitative 0.56 H 0.0-0.49 mg/L FEU Sodium Level 137 136-145 mmol/L Potassium Level 4.2 3.5-5.1 mmol/L Chloride Level 96 L 98-107 mmol/L Carbon Dioxide Level 29 20-31 mmol/L Anion Gap 12 5-15 Blood Urea Nitrogen 16 9-23 mg/dL Creatinine 1.52 H 0.550-1.02 mg/dL Glomerular Filtration Rate Calc 39 >90 mL/min BUN/Creatinine Ratio 10.5 10.0-20.0 Serum Glucose 468 *H 74-106 mg/dL Calcium Level 9.4 8.7-10.4 mg/dL Magnesium Level 1.9 1.6-2.6 mg/dL Total Bilirubin 0.5 0.2-1.0 mg/dL Aspartate Amino Transferase (AST) 10 L 13-40 U/L Alanine Aminotransferase (ALT) < 9 7-40 U/L Alkaline Phosphatase 155 H 46-116 U/L Troponin I High Sensitivity < 3 L </=34 ng/L B-Type Natriuretic Peptide 7.71 0-100 pg/mL Total Protein 6.6 5.7-8.2 g/dL Albumin 4.1 3.2-4.8 g/dL Thyroid Stimulating Hormone (TSH) 2.13 0.55-4.78 uIU/mL Current Medications Medications (Trade) Dose Ordered Sig/Damon Route Start Time Stop Time Status Last Admin Sodium Chloride 1,000 ml @ 1,000 mls/hr Q1H ONCE IV 02/23/25 14:45 02/23/25 15:44 DC 02/23/25 17:07 Insulin Human Regular (InsuLIN R) 10 units ONCE ONCE IV 02/23/25 14:45 02/23/25 14:46 DC 02/23/25 17:11 Acetaminophen/ Hydrocodone Bitart (Nisswa 5/325MG Tab) 1 tab ONCE ONCE PO 02/23/25 15:00 02/23/25 15:01 DC 02/23/25 17:06 Acetaminophen (Tylenol Tablet) 650 mg ONCE ONCE PO 02/23/25 15:00 02/23/25 15:01 DC 02/23/25 17:06 Time of 1ST Reevaluation: 16:00 Reevaluation 1ST: Unchanged Time of 2ND Reevaluation: 20:42 Reevaluation 2ND: Improved Patient Education/Counseling: Diagnosis, Treatment, Need For Follow Up Family Education/Counseling: No Family Present SEPSIS Sepsis Screen Date sepsis recognized/suspect: Feb 23, 2025 Time Sepsis recognized/suspect: 1318 Recent Procedure: No On Antibiotic Therapy: No Respiratory Rate >20: No Heart Rate >90: No Temp<36 C (96.8 F) or >38.3 C: No SBP <90 or MAP <65 mmHG: No New Acute Mental Status Change: No Is the patient on CPAP, BIPAP,: No Physician Orders Urinalysis (02/23/25 13:16) Vital Signs Date Time Temp Pulse Resp B/P (MAP) Pulse Ox O2 Delivery O2 Flow Rate FiO2 02/23/25 20:46 73 02/23/25 16:29 72 16 95 Room Air* 0 21 02/23/25 16:28 98.2 73 16 111/77 (88) 94 98.2 02/23/25 16:21 67 02/23/25 14:21 73 02/23/25 13:18 71 02/23/25 13:17 98.3 72 16 139/70 95 98.3 Laboratory Tests Test 02/23/25 13:31 White Blood Count 6.7 10^3/uL (4.4-10.8) Medications Medications Dose Ordered Sig/Damon Route Start Time Stop Time Status Last Admin Dose Admin Acetaminophen 650 mg ONCE ONCE PO 02/23/25 15:00 02/23/25 15:01 DC 02/23/25 17:06 Acetaminophen/ Hydrocodone Bitart 1 tab ONCE ONCE PO 02/23/25 15:00 02/23/25 15:01 DC 02/23/25 17:06 Insulin Human Regular 10 units ONCE ONCE IV 02/23/25 14:45 02/23/25 14:46 DC 02/23/25 17:11 Sodium Chloride 1,000 ml @ 1,000 mls/hr Q1H ONCE IV 02/23/25 14:45 02/23/25 15:44 DC 02/23/25 17:07 Departure 1 Departure Time of Disposition: 20:00 (59-year-old female with past medical history of COPD, coronary artery disease (stents in place), CHF who is presenting once again for recurrent chest pain that has been ongoing for months. Although the patient has had prior stents and has a history of coronary artery disease she has had similar recurrent chest discomfort over the past months. Was just admitted here 1 month ago for the same and had normal cardiac evaluation, cleared by Cardiology. Thought to have musculoskeletal chest pain given her chronic pain syndrome. Given the reports of chest pain consider ACS once again, today's troponin is within normal limits has been present all day, does not require serial troponins as I do not really suspect ACS. With no tearing chest pain, no widened mediastinum on chest x-ray, no known history of aortic aneurysm, does not seem concerning for aortic aneurysm, dissection. Patient with no pleuritic chest discomfort. Screening D-dimer was in from triage, however, only minimally elevated over the threshold, using the years algorithm for PE PE does not seem likely with her history and story. Does not require CT angiography of the chest as I do not suspect pulmonary embolism. Patient with a reported his heart failure, however, today's CMP is within normal limits, patient with no signs of fluid overloaded state, chest x-ray with no evidence of increased pulmonary vascular congestion or cardiomegaly, does not seem consistent with heart failure exacerbation. Reporting history of COPD, however, no wheezing on examination, does not seem consistent with COPD exacerbation. Patient likely having musculoskeletal chest pain given her chronic pain syndrome. Was also reporting midsternal chest discomfort, could be related to gastritis, reflux, esophagitis. CBC with no evidence of critical leukocytosis or significant anemia. Both panel is notable for hyperglycemia in the 400s, however, normal bicarb, no significant anion gap, does not seem consistent with DKA. Patient was treated for symptoms with 1 L normal saline IV fluid bolus, IV insulin with improvement of glucose. Was given IV Toradol, oral Nisswa, Pepcid, viscous lidocaine, Maalox for symptoms with improvement. Patient is stable for discharge for further outpatient workup and management of her acute on chronic chest pain.) Impression: Primary Impression: Chest pain Disposition: HOME / SELF CARE / HOMELESS Condition: Stable Additional Instructions: You were evaluated today for recurrent chest pain. Your cardiac markers today are within normal limits. Chest x-ray shows no evidence of any acute cardiac process. You were recently admitted for similar chest pain with normal workup. Please continue to follow up with your outpatient primary care doctor, industrial relations manager for further workup and management of your recurrent chest pain. Discharged With: Self Critical Care Note Critical Care Time?: Yes (35 min-critical care time only) Critical care comment: Patient with critical hyperglycemia concerning for signs of impending DKA. Was treated with IV fluid hydration, IV insulin to ensure that the patient's electrolyte abnormalities do not worsen and she does not go into DKA. Stability Stability form required: No Heart Score Heart Score: Heart Score Response (Comments) Value History Slightly Suspicious 0 EKG Normal 0 Age 45-64 1 Risk Factors >3 or Hx ASHD 2 Troponin Normal limit 0 Total 3 I personally scribed for HERLINDA SALDAÑA MD (Adallom) on 02/23/25 at 15:01. Electronically submitted by Ke Nguyễn ([email or web address]). I personally scribed for HERLINDA SALDAÑA MD (Adallom) on 02/23/25 at 15:05. Electronically submitted by Ke Nguyễn ([email or web address]). HERLINDA SALDAÑA MD Feb 23, 2025 15:01
[2025-02-23 16:28] VITALS: TEMP 98.2
[2025-02-23 16:29] VITALS: PULSE 72; RESP 16; O2SAT 95
--- NOTE | 2025-02-23 17:03 | DVH ---
INDICATION: CHEST PAIN TECHNIQUE: Frontal view of the chest. COMPARISON: XY CHEST PORTABLE on DOS: 01/16/25, XY CHEST PORTABLE on DOS: 11/10/24, XY CHEST PORTABLE on DOS: 10/22/24, XY CHEST PORTABLE on DOS: 07/28/24, XY CHEST PORTABLE on DOS: 07/19/24 FINDINGS: . The heart and mediastinal contours are grossly unremarkable. There is no evidence of pleural disease. The lungs are clear. The bony structures of the chest are intact without fracture. IMPRESSION: 1. No evidence of acute disease. INSPECTOR MTDD
[2025-02-23] MEDS: ACETAMINOPHEN 325 MG TAB PO ONE (17:06)
[2025-02-23] MEDS: HYDROcodone-ACET 5/325MG TAB PO ONE (17:06)
[2025-02-23] MEDS: SODIUM CHLORIDE 0.9% 1,000 ML IV ONE (17:07)
[2025-02-23] MEDS: InsuLIN REG 1unit/0.01ml Soln (100units/ml) IV ONE (17:11)
[2025-02-23] MEDS ORDERED: MAALOX PLUS or MAALOX 30 ML PO ONE (20:30)
[2025-02-23] MEDS ORDERED: FAMOTIDINE 20 MG TAB PO ONE (20:30)
[2025-02-23] MEDS ORDERED: LIDOCAINE VISCOUS 2% 15ML UD PO ONE (20:30)
[2025-02-23] MEDS: KETOROLAC TROMETH 30 MG/ML 1ML VIAL IV ONE (21:44)
[2025-02-23 21:51] VITALS: BP 95/79; PULSE 75; O2SAT 96
--- NOTE | 2025-02-24 13:31 | ECG ---
[facility] Test Date: 2025-02-23 Test Time: 16:21:34 Pat Name: KAVYA TEJEDA Department: ED Room: Gender: F Hurl Shaker: SAUL : 1965 Requested By: HERLINDA SALDAÑA Order Number: [id number] Reading MD: Humberto Alvarez Measurements Intervals [place] Rate: 67 P: 42 IN: 147 QRS: -40 QRSD: 97 T: 8 QT: 539 QTc: 569 Interpretive Statements Sinus rhythm Left axis deviation Abnormal R-wave progression, early transition Borderline T abnormalities, diffuse leads Prolonged QT interval Electronically Signed On 02-24-2025 17:58:44 PST by Humberto Alvarez Please click the below link to view image of tracing.
--- NOTE | 2025-02-24 13:31 | ECG ---
[facility] Test Date: 2025-02-23 Test Time: 13:18:56 Pat Name: KAVYA TEJEDA Department: ED Room: Gender: F [employer] Fabricator: EASTON : 1965 Requested By: HERLINDA SALDAÑA Order Number: [id number] Reading MD: Humberto Alvarez Measurements Intervals [place] Rate: 71 P: 29 AL: 144 QRS: -48 QRSD: 100 T: 37 QT: 666 QTc: 725 Interpretive Statements Sinus rhythm LAD, consider left anterior fascicular block Abnormal R-wave progression, early transition Borderline abnrm T, anterolateral leads Prolonged QT interval Electronically Signed On 02-24-2025 17:58:25 PST by Humberto Alvarez Please click the below link to view image of tracing.
== END 2025-02-23 21:54 | disposition home or self-care (01) ==
LOC: ER 13:13
DX: R07.89 Other chest pain (principal); E78.5 Hyperlipidemia, unspecified; E11.9 Type 2 diabetes mellitus without complications; I50.9 Heart failure, unspecified; I25.10 Atherosclerotic heart disease of native coronary artery without angina pectoris; Z79.899 Other long term (current) drug therapy; Z79.02 Long term (current) use of antithrombotics/antiplatelets; Z79.82 Long term (current) use of aspirin; Z79.84 Long term (current) use of oral hypoglycemic drugs; Z79.85 Long-term (current) use of injectable non-insulin antidiabetic drugs; Z85.05 Personal history of malignant neoplasm of liver; Z86.73 Personal history of transient ischemic attack (TIA), and cerebral infarction without residual deficits; Z87.442 Personal history of urinary calculi; Z90.49 Acquired absence of other specified parts of digestive tract; Z91.040 Latex allergy status; Z95.5 Presence of coronary angioplasty implant and graft; Z98.890 Other specified postprocedural states
CPT/HCPCS: 36415; 71045; 80053; 82947; 83735; 83880; 84443; 84484; 85025; 85379; 85610; 85730; 93005; 96361; 96374; 99285; J1815; J7030; 82962

== ENCOUNTER 2025-03-25 14:45 | Inpatient (IN) | payer MEDICARE, MEDICAID ==
[~2025-03-25] VITALS: Ht 157.5 cm; Wt 88.1 kg
[2025-03-25 15:17] LABS: Hematocrit 40.1 % (36.0-46.0); Hemoglobin 13.5 g/dL (12.2-16.2); Mean Corpuscular Hemoglobin 30.2 pg (28.0-32.0); Mean Corpuscular Volume 89.8 fL (80.0-100.0); Nucleated Red Blood Cells % 0.1 %
[2025-03-25 15:34] LABS: Albumin 4.2 g/dL (3.2-4.8); Anion Gap 9 (5-15); BUN/Creatinine Ratio 13.0 (10.0-20.0); Blood Urea Nitrogen 14 mg/dL (9-23); Calcium 9.7 mg/dL (8.7-10.4); Carbon Dioxide 27 mmol/L (20-31); Chloride 103 mmol/L (98-107); Potassium 4.4 mmol/L (3.5-5.1); Sodium 139 mmol/L (136-145); Total Protein 6.7 g/dL (5.7-8.2)
[2025-03-25 15:35] LABS: Alanine Aminotransferase < 9 U/L (7-40); Alkaline Phosphatase 162 U/L (46-116); Bilirubin, Total 0.3 mg/dL (0.2-1.0); Glucose 316 mg/dL (74-106)
[2025-03-25 15:52] LABS: Lactic Acid w/Reflex 2.2 mmol/L (0.4-2.0)
--- NOTE | 2025-03-25 15:54 | DVH ---
CLINICAL HISTORY: constipation/ lower abd pain/ vag pressure TECHNIQUE: CT of the abdomen and pelvis was performed without IV contrast. This exam was performed according to our departmental dose optimization program. Up-to-date CT equipment and radiation dose reduction techniques are utilized as appropriate. CTDI 17 DLP 1013 COMPARISON: CT CT AB PEL WITH IV CON ONLY on DOS: 12/25/24, CT CT AB PEL WO CON- NO ORAL OR IV on DOS: 11/30/24, CT CT AB PEL WITH IV CON ONLY on DOS: 11/11/24, CT CT AB PEL WITH ORAL CON ONLY on DOS: 10/24/24, CT CT AB PEL WO CON-NO ORAL OR IV on DOS: 07/29/24 FINDINGS: Abdomen/Pelvis: The spleen, pancreas, adrenal glands, liver, and bladder are grossly unremarkable. The gallbladder is absent. Near the 2 mm nonobstructing right renal calculus. There is mild bilateral parenchymal renal cortical scarring with a left renal parenchymal calcification. There is a 3.2 cm posterior uterine fibroid. The abdominal aorta is normal in course and caliber. There are mild aortic atherosclerotic calcifications. There is no free intraperitoneal air or fluid. There is no enlarged abdominal pelvic lymph node. There is no bowel wall thickening or dilatation. There is a moderate amount of stool in the colon. Is mild colonic diverticulosis. Other: The imaged lower thorax demonstrates 3-vessel coronary artery calcifications. No acute osseous abnormality is evident. IMPRESSION: No acute noncontrast CT abnormality in the abdomen/pelvis. Punctate nonobstructing right renal calculus. Constipation. Mild colonic diverticulosis. Cholecystectomy. Uterine fibroid 3-vessel coronary artery calcifications.
[2025-03-25 16:28] LABS: Urine Budding Yeast OCCASIONAL /hpf (None Seen); Urine Protein, UAD TRACE (Negative)
--- NOTE | 2025-03-25 16:33 | ED.PDOC ---
GI ASSESSMENT HPI Comments HPI: 59-year-old female who presents to the ED for chief complaint of abdominal pain - patient that she has been having abdominal pain and pelvic pain for the past two days. - patient states she has been having left-sided abdominal pain radiating diffusely to her pelvic area. - Patient otherwise states that she has also been having constipation and states that she has a history of constipation but states she ran out of her stool softener due to insurance problems - patient having associated dysuria but otherwise denies nausea vomiting diarrhea fever cough or chills - patient otherwise has a noted history of ulcerative colitis and Crohn's disease for which she states she is currently taking medications compliantly - patient vitals in the ED include temp 97.0 F, heart rate 91, respiratory rate 18, blood pressure 110/81 and O2 saturation of 95% on room air - patient was denies any other symptoms at this time Past Medical History: Ulcerative colitis, Crohn's disease, REMOTE cancer Past Surgical History: Uterine prolapse, right carotid surgery, Cholecystectomy, Hernia Repair, PTCA Social History: Denies ETOH, denies drug use, denies tobacco use Medications: Unknown Allergies: Latex HPI: POOR HISTORIAN. PAST MEDICAL HISTORY: PAST SURGICAL HISTORY: REVIEW OF SYSTEMS: CONSTITUTIONAL: DENIES ACUTE: FEVER, DIAPHORESIS, CHILLS, GENERALIZED WEAKNESS. HEAD: DENIES ACUTE: HEADACHE, PHOTOPHOBIA EYES: DENIES ACUTE: DOUBLE VISION, VISION LOSS, EYE PAIN, EYE DISCHARGE. EARS: DENIES ACUTE: TINNITUS, HEARING LOSS, EAR DISCHARGE, EAR PAIN, THROAT: DENIES ACUTE: SORE THROAT, SWELLING, DIFFICULTY SWALLOWING , PAIN WITH SWALLOWING, CHANGE IN VOICE. NECK: DENIES ACUTE: NECK PAIN, NECK SWELLING, STIFF NECK. HEART: DENIES ACUTE : CHEST PAIN, PALPITATIONS, LUNGS: DENIES ACUTE: SOB, WHEEZING, COUGH, HEMOPTYSIS ABDOMEN: DENIES ACUTE: NAUSEA, VOMITING, DIARRHEA, MELENA , HEMATEMESIS, HEMATOCHEZIA SKIN: DENIES ACUTE: RASH, REDNESS, LESIONS, ITCHINESS. EXTREMITIES: DENIES ACUTE: CALF PAIN, NUMBNESS, TINGLING, WEAKNESS, DENIES PAIN IN EXTREMITY. DENIES ACUTE: LOW BACK PAIN. NEURO: DENIES ACUTE: FOCAL NEUROLOGICAL DEFICIT, MOTOR OR SENSORY FOCAL NEUROLOGICAL DEFICIT, TREMORS, SEIZURE LIKE ACTIVITY, CONFUSION, DIZZINESS, CHANGE IN MENTAL STATUS, LOSS OF BOWEL OR BLADDER FUNCTION, CAUDA EQUINA LIKE SYMPTOMS. : DENIES ACUTE: HEMATURIA, FLANK PAIN, INCREASE IN URINARY FREQUENCY. PSYCH: DENIES ACUTE: HALLUCINATION, SUICIDAL IDEATION, HOMICIDAL IDEATION. FEMALE: DENIES ACUTE: ABNORMAL VAGINAL BLEEDING, FOUL ODOR, UNUSUAL DISCHARGE. PHYSICAL EXAM: GENERAL: ----MILD----ACUTE DISTRESS, AWAKE AND ALERT. HEAD: NORMOCEPHALIC, ATRAUMATIC. NO RACCOON'S EYES, NO SIERRA SIGN. NECK: SUPPLE, TRACHEA IS MIDLINE, NO SWELLING. THROAT: NORMAL PHONATION. EYES:, NO ERYTHEMA, NO PURULENT DISCHARGE, NO PROPTOSIS, NO ICTERUS. HEART: REGULAR RATE, REGULAR RHYTHM, NO SIGNIFICANT MURMUR APPRECIATED. LUNGS: NO APPARENT RESPIRATORY DISTRESS, ABLE TO SPEAK IN FULL SENTENCES. NO WHEEZING, NO RHONCHI, NO CRACKLES. NO STRIDORS CLEAR TO AUSCULTATION BILATERALLY. ABDOMEN: LEFT-SIDED ABDOMINAL TENDER TO PALPATION SUPRAPUBIC TENDER TO PALPATION, NON DISTENDED, SOFT, NO GUARDING, NO REBOUND, + BOWEL SOUNDS. OBESE NEURO: AWAKE, ALERT, ORIENTED TO NAME, SELF, SITUATION, FOLLOWS COMMANDS GCS=15. SPEECH IS NORMAL. SKIN: NO PETECHIA, NO PURPURA, NO CYANOSIS, NON-PALE, NOT JAUNDICE. LOWER EXTREMITIES: --NO - PITTING EDEMA NO DEFORMITY, NO FOCAL SWELLING, NO CALF TTP. MAKES EYE CONTACT. MOVES ALL FOUR EXTREMITIES. FACE: NO APPARENT FACIAL DROOP. AMBULATING IN THE ED INDEPENDENTLY. ED COURSE: DISCLAIMER: THIS MEDICAL DOCUMENT WAS CREATED USING AN ELECTRONIC MEDICAL RECORD SYSTEM WITH VOICE RECOGNITION SOFTWARE AND COMPUTERIZED DICTATION SYSTEM. ALTHOUGH THIS DOCUMENT HAS BEEN CAREFULLY REVIEWED, THERE MIGHT STILL BE SOME PHONETIC AND TYPOGRAPHICAL ERRORS. OCCASIONAL WRONG-WORD OR "SOUND-ALIKE" SUBSTITUTIONS MAY HAVE OCCURRED DUE TO THE INHERENT LIMITATIONS OF VOICE RECOGNITION SOFTWARE. THESE AREAS ARE PURELY TYPOGRAPHICAL DUE TO IMPERFECTIONS OF THE SOFTWARE PROGRAMS AND DO NOT REFLECT ANY COMPROMISE IN THE PATIENT'S MEDICAL CARE. PLEASE READ THE CHART CAREFULLY AND RECOGNIZE, USING CONTEXT, WHERE THESE SUBSTITUTIONS HAVE OCCURRED. Chief Complaint: Abdominal Pain Time Seen by MD: 17:15 Primary Care Provider: unknown Reviewed Notes: Medications, Allergies Allergies: Coded Allergies: Latex (Verified Allergy, Mild, 06/02/24) INCLUDING TAPE, BROWN AND CLEAR TAPE Home Meds Active Scripts Ciprofloxacin Hcl (Ciprofloxacin Hcl) 500 Mg Tab, 1 TAB PO BID for 7 Days, #14 TAB Prov:TAMI ROOT DENTAL CERAMIST HELPER 01/18/25 Lactulose (Lactulose) 10 Gm/15 Ml [place], 10 GM PO BID for 30 Days, #120 ML Prov:TAMI ROOT DENTAL CERAMIST HELPER 01/18/25 Hydrocodone-Acetaminophen (Hydrocodone Bitartrate/AC 5-325 mg) 1 Tab Tab, 1 TAB PO Q8HP PRN for 5 Days, #15 TAB Prov:SEAN ZEPEDA MD 09/30/24 Ranolazine (Ranolazine ER) 500 Mg Tab, 500 MG PO BID for 30 Days, #60 TAB Prov:TED HUSSEIN NP 07/30/24 Baclofen (Baclofen) 10 Mg Tab, 5 MG PO Q8HP PRN for 7 Days, #21 TAB Prov:TED HUSSEIN NP 07/30/24 Isosorbide Mononitrate (Isosorbide Mononitrate Er) 30 Mg Tab, 1 TAB PO DAILY, #30 TAB 5 Refills Prov:TED HUSSEIN NP 07/30/24 Lidocaine (LIDODERM 5% TOPICAL PATCH) 1 Patch Ph, 1 PATCH TOP DAILY for 30 Days, #30 PATCH 0 Refills Prov:MIAN ROMO NP 06/02/24 Polyethylene Glycol 3350 (Miralax) 17 Gm Pow, 17 GM PO DAILY for 15 Days, #15 POW Prov:TED HUSSEIN NP 05/03/24 Albuterol Sulfate (Albuterol Sulfate Hfa) 108 Mcg/Act Aer, 108 MCG IN BID PRN for 10 Days, #1 AER 0 Refills Prov:LILI LUNSFORD DO 12/01/22 Reported Medications Docusate Sodium (Docusate Sodium) 100 Mg Cap, 1 CAP PO BID for 30 Days, #60 07/03/24 Simvastatin (Simvastatin) 20 Mg Tab, 1 TAB PO DAILY for 90 Days, #90 07/03/24 Hydrocodone-Acetaminophen (Hydrocodone Bitartrate/AC 10-325 mg) 1 Tab Tab, 1 TAB PO Q6HR PRN for CHRONIC PAIN for 30 Days, #120 07/03/24 Potassium Chloride (Potassium Chloride ER) 10 Meq Tab, 1 TAB PO BID for 90 Days, #180 07/03/24 Paroxetine Hydrochloride (Paroxetine Hydrochloride) 20 Mg Tab, 1 TAB PO DAILY for 90 Days, #90 05/01/24 Tirzepatide (Mounjaro) 7.5 Mg/0.5 Ml Inj, 7.5 MG SC QWEEKLY for 28 Days, #2 10/18/23 Sitagliptin Phosphate (Januvia) 100 Mg Tab, 1 TAB PO DAILY 10/18/23 Clopidogrel Bisulfate (CLOPIDOGREL) 75 Mg Tab, 1 TAB PO DAILY 10/18/23 Furosemide (Furosemide) 40 Mg Tab, 1 TAB PO BID 10/18/23 Atorvastatin Calcium (ATORVASTATIN CALCIUM) 20 Mg Tab, 1 TAB PO DAILY 10/17/23 Cholecalciferol (Vitamin D-3 Super Strengt) 2,000 Unit Tab, 1 TAB PO DAILY 10/17/23 Gabapentin (Gabapentin) 300 Mg Cap, 1 CAP PO Q8HR for NEUROPATHIC PAIN for 30 Days, #90 10/17/23 Aspirin (Aspirin Low Dose) 81 Mg Tab, 1 TAB PO DAILY 10/17/23 Balsalazide Disodium (Balsalazide Disodium) 750 Mg Cap, 3 CAP PO BID for 30 Days, #180 10/17/23 Mode of Arrival: Ambulatory Past Medical History PAST MEDICAL HISTORY: Angina, CAD, Cancer, CHF, CVA, DM, High Lipids, Kidney Stones, Liver, [place] Surgical History: Cholecystectomy, Hernia Repair, PTCA EXTRUSION MANAGER History: No Pertinent EXTRUSION MANAGER History Family History Family History: Reviewed,noncontributory to illness, Family hx of Cancer, Family hx of heart naveen Social History Smoker: Non-Smoker Alcohol: Denies ETOH Use Drugs: Denies Drug Use Lives In: Home Was a procedure done? Was a procedure done?: No X-Ray, Labs, Meds, VS Vital Signs Date Time Temp Pulse Resp B/P (MAP) Pulse Ox O2 Delivery O2 Flow Rate FiO2 03/25/25 16:56 98.6 83 16 103/69 (80) 97 98.6 03/25/25 14:55 85 03/25/25 14:47 97.0 91 18 110/81 95 97.0 Lab Test 03/25/25 16:08 03/25/25 16:05 03/25/25 15:08 Range/Units Prothrombin Time Pending Prothrombin Time INR Pending Urine Color Yellow Yellow Urine Clarity Turbid H Clear Urine pH 5.5 5.0-9.0 Urine Specific [place] 1.031 1.001-1.035 Urine Protein Trace H Negative Urine Ketones Negative Negative Urine Blood 3+ H Negative /uL Urine Nitrite Negative Negative Urine Bilirubin Negative Negative Urine Urobilinogen Normal Negative mg/dL Urine Leukocyte Esterase 3+ Negative /uL Urine RBC 97 0 - 4 /hpf Urine Microscopic WBC 300 H 0-5 /HPF Urine Squamous Epithelial Cells Few <5 /hpf Urine Bacteria None seen None Seen /hpf Urine Yeast (Budding) Occasional None Seen /hpf Urine Glucose 4+ H Normal mg/dL White Blood Count 6.3 4.4-10.8 10^3/uL Red Blood Count 4.47 4.0-5.20 10^6/uL Hemoglobin 13.5 12.2-16.2 g/dL Hematocrit 40.1 36.0-46.0 % Mean Corpuscular Volume 89.8 80.0-100.0 fL Mean Corpuscular Hemoglobin 30.2 28.0-32.0 pg Mean Corpuscular Hemoglobin Concent 33.7 32.0-36.0 g/dL Red Cell Distribution Width 14.8 H 11.8-14.3 % Platelet Count 197 140-450 10^3/uL Mean Platelet Volume 8.5 6.9-10.8 fL Neutrophils (%) (Auto) 66.0 37.0-80.0 % Lymphocytes (%) (Auto) 26.3 10.0-50.0 % Monocytes (%) (Auto) 4.9 0.0-12.0 % Eosinophils (%) (Auto) 2.2 0.0-7.0 % Basophils (%) (Auto) 0.6 0.0-2.0 % Neutrophils # (Auto) 4.2 1.6-8.6 10 ^3/uL Lymphocytes # (Auto) 1.7 0.4-5.4 10 ^3/uL Monocytes # (Auto) 0.3 0-1.3 10 ^3/uL Eosinophils # (Auto) 0.1 0-0.8 10 ^3/uL Basophils # (Auto) 0 0-0.2 10 ^3/uL Nucleated Red Blood Cells 0.1 % Sodium Level 139 136-145 mmol/L Potassium Level 4.4 3.5-5.1 mmol/L Chloride Level 103 98-107 mmol/L Carbon Dioxide Level 27 20-31 mmol/L Anion Gap 9 5-15 Blood Urea Nitrogen 14 9-23 mg/dL Creatinine 1.08 H 0.550-1.02 mg/dL Glomerular Filtration Rate Calc 58 >90 mL/min BUN/Creatinine Ratio 13.0 10.0-20.0 Serum Glucose 316 H 74-106 mg/dL Lactic Acid Level 2.2 *H 0.4-2.0 mmol/L Calcium Level 9.7 8.7-10.4 mg/dL Total Bilirubin 0.3 0.2-1.0 mg/dL Aspartate Amino Transferase (AST) 10 L 13-40 U/L Alanine Aminotransferase (ALT) < 9 7-40 U/L Alkaline Phosphatase 162 H 46-116 U/L Troponin I High Sensitivity < 3 L </=34 ng/L Total Protein 6.7 5.7-8.2 g/dL Albumin 4.2 3.2-4.8 g/dL Current Medications Medications (Trade) Dose Ordered Sig/Damon Route Start Time Stop Time Status Last Admin Acetaminophen/ Hydrocodone Bitart ([place] 5/325MG Tab) 1 tab ONCE ONCE PO 03/25/25 16:45 03/25/25 16:46 DC 03/25/25 17:02 Time of 1ST Reevaluation: 17:33 (PATIENT RECEIVED NORCO. PATIENT DEVELOPED SOME SPEECH DIFFICULTY WHERE SHE HAS A PRESSURED SPEECH BUT ABLE TO ANSWER AND COME UP WITH ALL THE QUESTIONS APPROPRIATELY. NO CHANGE IN MENTAL STATUS. STROKE CODE WAS ACTIVATED. No apparent focal neurological deficits. Stroke neurology was consulted.) Patient Education/Counseling: Diagnosis, Treatment Family Education/Counseling: No Family Present SEPSIS Sepsis Screen Date sepsis recognized/suspect: Mar 25, 2025 Time Sepsis recognized/suspect: 8 Recent Procedure: No On Antibiotic Therapy: No Respiratory Rate >20: No Heart Rate >90: No Temp<36 C (96.8 F) or >38.3 C: No SBP <90 or MAP <65 mmHG: No New Acute Mental Status Change: No Is the patient on CPAP, BIPAP,: No Physician Orders Ct Ab Pel Wo Con-No Oral Or Iv (03/25/25 14:57) Wing Scorer (03/25/25 ) Electrocardigram (03/25/25 15:01) Pelvic (03/25/25 16:33) Prothrombin Time W/ Inr (03/25/25 17:10) Head Without Contrast (03/25/25 17:10) Pt Eval 60min (03/25/25 17:10) St Eval Swallow Funct 45min (03/25/25 17:10) Troponin-I Hs (03/25/25 17:10) Troponin-I Hs (03/25/25 18:10) Stroke Assessment (03/25/25 17:16) Vital Signs .PER UNIT PROTOCOL (03/25/25 17:16) Wing Scorer (03/25/25 17:16) Accurate Weight In Kg (03/25/25 17:16) Accucheck (03/25/25 17:16) 2 Large Bore Ivs (20mg Or Larg (03/25/25 17:16) Nursing Dysphagia Screen (03/25/25 17:16) Neuro Checks Per Unit Protocol (03/25/25 17:16) Vital Signs Date Time Temp Pulse Resp B/P (MAP) Pulse Ox O2 Delivery O2 Flow Rate FiO2 03/25/25 16:56 98.6 83 16 103/69 (80) 97 98.6 03/25/25 14:55 85 03/25/25 14:47 97.0 91 18 110/81 95 97.0 Laboratory Tests Test 03/25/25 15:08 Lactic Acid Level 2.2 mmol/L (0.4-2.0) *H White Blood Count 6.3 10^3/uL (4.4-10.8) Medications Medications Dose Ordered Sig/Damon Route Start Time Stop Time Status Last Admin Dose Admin Acetaminophen/ Hydrocodone Bitart 1 tab ONCE ONCE PO 03/25/25 16:45 03/25/25 16:46 DC 03/25/25 17:02 Departure 1 Departure Time of Disposition: 17:31 Impression: Primary Impression: Abdominal pain Additional Impression: Stroke-like symptoms Disposition: 09 ADMITTED INPATIENT Admit to: Tele Condition: Guarded Discharged With: Self Critical Care Note Critical Care Time?: No Heart Score Heart Score: Heart Score Response (Comments) Value History N/A 0 EKG N/A 0 Age N/A 0 Risk Factors N/A 0 Troponin N/A 0 Total 0 I personally scribed for FLY JONES DO ([email or web address]) on 03/25/25 at 16:33. Electronically submitted by Marie Harrison ([facility]). I personally scribed for FLY JONES DO ([email or web address]) on 03/25/25 at 16:54. Electronically submitted by [facility]vara ([facility]). I personally scribed for FLY JONES DO ([email or web address]) on 03/25/25 at 17:13. Electronically submitted by Omi Guevara ([facility]). I personally scribed for FLY JONES DO ([email or web address]) on 03/25/25 at 17:30. Electronically submitted by Omi Guevara ([facility]). FLY JONES DO Mar 25, 2025 16:33
[2025-03-25 17:00] VITALS: PULSE 84; RESP 14; O2SAT 96
[2025-03-25] MEDS: HYDROcodone-ACET 5/325MG TAB PO ONE (17:02)
[2025-03-25 17:37] LABS: INR 0.94 (0.9-1.15); Prothrombin Time 10.0 sec (9.3-11.8)
--- NOTE | 2025-03-25 18:14 | DVH ---
CT HEAD WITHOUT CONTRAST INDICATION: r/o cva EXAM DATE: 03/25/2025 05:36 PM COMPARISON: CT HEAD WITHOUT CONTRAST on DOS: 07/02/24 TECHNIQUE: CT of the head without intravenous contrast. RADIATION DOSE: CTDIvol: 50.54 mGy, DLP: 810.42 mGy*cm FINDINGS: There is no intracranial hemorrhage. There is no extra-axial fluid, mass, mass effect or midline shift. The ventricles are midline and normal in size. Basilar cisterns are patent. Mansfield-white differentiation is maintained. The paranasal sinuses and mastoids are well-pneumatized. Imaged portion of the orbits are unremarkable. IMPRESSION: No intracranial hemorrhage or mass effect.
--- NOTE | 2025-03-25 18:32 | ECG ---
[facility] Test Date: 2025-03-25 Test Time: 14:55:09 Pat Name: KAVYA TEJEDA Department: Room: 0278T Gender: F Doctor Of Radiology: MARTHA : 1965 Requested By: FLY JONES Order Number: [id number] Reading MD: Humberto Alvarez Measurements Intervals Maury Rate: 85 P: 35 LA: 141 QRS: -51 QRSD: 92 T: 17 QT: 516 QTc: 614 Interpretive Statements Sinus rhythm Left anterior fascicular block Abnormal R-wave progression, late transition Borderline T abnormalities, anterior leads Prolonged QT interval Electronically Signed On 03-26-2025 17:25:36 PST by Humberto Alvarez Please click the below link to view image of tracing.
--- NOTE | 2025-03-25 19:24 | BSKYNEURO ---
[facility] # Demographics Consult Type: Acute Stroke Level 1 (0-4.5 hrs) Patient Location: Emergency Room First Name: KAVYA Last Name: NIKHIL Date of : 1965 Age: 59 Gender: Female Facility: [facility] Time of Initial Page (): 03/25/2025 17:15 First Contact with Site (): 03/25/2025 17:15 # HPI History: 59yo presented with abdominal pain, then developed some word finding difficulty # Scores Time of exam and NIHSS (): 03/25/2025 17:20 Level of Consciousness 1a: [0] = Alert; keenly responsive LOC Questions 1b: [0] = Answers both questions correctly LOC Commands 1c: [0] = Performs both tasks correctly Best Gaze 2: [0] = Normal Visual 3: [0] = No visual loss Facial Palsy 4: [0] = Normal symmetrical movements Motor Arm Left 5a: [0] = No drift Motor Arm Right 5b: [0] = No drift Motor Leg Left 6a: [1] = Drift Motor Leg Right 6b: [1] = Drift Limb Ataxia 7: [0] = Absent Sensory 8: [0] = Normal Best Language 9: [0] = No aphasia Dysarthria 10: [0] = Normal Extinction and Inattention 11: [0] = No abnormality NIHSS Total: 2 # Exam Mental Status: - awake - alert and oriented x 3 - follows commands Language: incosistent speech, stuttering Cranial Nerves: - extra ocular movements intact - PERRLA Motor: inconsistent motor exam, legs more than arm # PMH-FH-SH Past Medical History: - TIA - stroke - hyperlipidemia - Diabetes Medications: antidepressant # Data Time Head CT personally read by me (): 03/25/2025 19:[address]: - no bleed - per radiologist read # Assessment Impression: Speech changes, inconsistent exam, with some inorganic features to it # Plan Thrombolytic/Intervention: NOT IV Thrombolysis or IA Intervention candidate Thrombolytic Exclusion: exam to inconsistent, unclear this is stroke Imaging: (urgency: routine): - MRI Brain without contrast Other: - If patient has any neurological deterioration please call back immediately - would not pursue stroke work-up if MRI is negative - I have discussed my recommendations with the referring provider # Demographics First Name: KAVYA Last Name: NIKHIL Facility: [facility] Yes GORDON JUAN Jr., MD Mar 25, 2025 19:24
[2025-03-25 19:25] VITALS: PULSE 76; RESP 13; O2SAT 94
[2025-03-25] MEDS ORDERED: LABETALOL HCL 20 MG/4 ML VL IV PRN (19:45)
[2025-03-25] MEDS ORDERED: HYDROcodone-ACET 5/325MG TAB PO PRN (19:45)
[2025-03-25] MEDS ORDERED: ACETAMINOPHEN 325 MG TAB PO PRN (19:45)
[2025-03-25] MEDS ORDERED: MORPHINE SULFATE INJ 2 MG/ml SYRG IV PRN (19:45)
[2025-03-25] MEDS ORDERED: NITROGLYCERIN 0.4 MG SL TAB SL PRN (19:45)
[2025-03-25] MEDS ORDERED: TEMAZEPAM 15 MG CAP PO PRN (19:45)
--- NOTE | 2025-03-25 19:46 | DVHHP2 ---
Admitting Diagnosis: abd pain History of Present Illness 59-year-old female who presents to the ED for chief complaint of abdominal pain. While in the emergency department the patient was evaluated by the provider, As per provider: Labs, vital signs, and imagining monitored. Patient will be admitted for further evaluation and treatment. I discussed admission with the patient/family and is in agreement to treatment plan. Patient Family History: FH: breast cancer G8 SISTER FH: cancer FH: liver cancer G8 MOTHER, , Cause: Liver cancer Family history: Alzheimer's disease G8 MOTHER, , Cause: Liver cancer, Onset:Unknown Family history: Cardiovascular disease G8 FATHER, , Cause: CHF (congestive heart failure), Onset:Unknown Family history: Diabetes mellitus G8 BROTHER, Onset:Unknown Thyroid disease 19 CHILD Thyroid disease 19 CHILD Allergies: Coded Allergies: Latex (Verified Allergy, Mild, 06/02/24) INCLUDING TAPE, BROWN AND CLEAR TAPE Home Meds Active Scripts Lactulose (Lactulose) 10 Gm/15 Ml [place], 10 GM PO BID for 30 Days, #120 ML Prov:TAMI ROOT GRILL PREP COOK 01/18/25 Ranolazine (Ranolazine ER) 500 Mg Tab, 500 MG PO BID for 30 Days, #60 TAB Prov:TED HUSSEIN RESEARCHER 07/30/24 Baclofen (Baclofen) 10 Mg Tab, 5 MG PO Q8HP PRN for 7 Days, #21 TAB Prov:TED HUSSEIN RESEARCHER 07/30/24 Isosorbide Mononitrate (Isosorbide Mononitrate Er) 30 Mg Tab, 1 TAB PO DAILY, #30 TAB 5 Refills Prov:TED HUSSEIN NP 07/30/24 Lidocaine (LIDODERM 5% TOPICAL PATCH) 1 Patch Ph, 1 PATCH TOP DAILY for 30 Days, #30 PATCH 0 Refills Prov:MIAN ROMO RESEARCHER 06/02/24 Polyethylene Glycol 3350 (Miralax) 17 Gm Pow, 17 GM PO DAILY for 15 Days, #15 POW Prov:TED HUSSEIN RESEARCHER 05/03/24 Albuterol Sulfate (Albuterol Sulfate Hfa) 108 Mcg/Act Aer, 108 MCG IN BID PRN for 10 Days, #1 AER 0 Refills Prov:LILI LUNSFORD DO 12/01/22 Reported Medications Docusate Sodium (Docusate Sodium) 100 Mg Cap, 1 CAP PO BID for 30 Days, #60 07/03/24 Simvastatin (Simvastatin) 20 Mg Tab, 1 TAB PO DAILY for 90 Days, #90 07/03/24 Hydrocodone-Acetaminophen (Hydrocodone Bitartrate/AC 10-325 mg) 1 Tab Tab, 1 TAB PO Q6HR PRN for CHRONIC PAIN for 30 Days, #120 07/03/24 Potassium Chloride (Potassium Chloride ER) 10 Meq Tab, 1 TAB PO BID for 90 Days, #180 07/03/24 Paroxetine Hydrochloride (Paroxetine Hydrochloride) 20 Mg Tab, 1 TAB PO DAILY for 90 Days, #90 05/01/24 Tirzepatide (Mounjaro) 7.5 Mg/0.5 Ml Inj, 7.5 MG SC QWEEKLY for 28 Days, #2 10/18/23 Sitagliptin Phosphate (Januvia) 100 Mg Tab, 1 TAB PO DAILY 10/18/23 Clopidogrel Bisulfate (CLOPIDOGREL) 75 Mg Tab, 1 TAB PO DAILY 10/18/23 Furosemide (Furosemide) 40 Mg Tab, 1 TAB PO BID 10/18/23 Atorvastatin Calcium (ATORVASTATIN CALCIUM) 20 Mg Tab, 1 TAB PO DAILY 10/17/23 Cholecalciferol (Vitamin D-3 Super Strengt) 2,000 Unit Tab, 1 TAB PO DAILY 10/17/23 Gabapentin (Gabapentin) 300 Mg Cap, 1 CAP PO Q8HR for NEUROPATHIC PAIN for 30 Days, #90 10/17/23 Aspirin (Aspirin Low Dose) 81 Mg Tab, 1 TAB PO DAILY 10/17/23 Balsalazide Disodium (Balsalazide Disodium) 750 Mg Cap, 3 CAP PO BID for 30 Days, #180 10/17/23 Current Medications Current Medications Medications (Trade) Dose Ordered Sig/Damon Route PRN Reason Start Time Stop Time Status Last Admin Enoxaparin Sodium (Lovenox) 40 mg DAILY SC 03/26/25 10:00 03/26/25 09:26 Atorvastatin Calcium (Lipitor) 20 mg HS PO 03/25/25 22:00 03/26/25 08:26 DC 03/25/25 21:53 Diagnostic Test (Pha) (Accu-Chek Comfort Curve T) 1 strip Q6HR 03/26/25 00:00 03/26/25 17:09 Insulin Human Regular (InsuLIN R) Q6HR SC 03/26/25 00:00 03/26/25 17:13 Aspirin 81 mg DAILY PO 03/26/25 10:00 03/26/25 09:27 Atorvastatin Calcium (Lipitor) 80 mg DAILY PO 03/26/25 10:00 03/26/25 16:09 DC Pantoprazole Sodium (Protonix Tablet) 40 mg DAILY PO 03/26/25 10:00 03/26/25 09:26 Morphine Sulfate 2 mg Q4HPRN PRN IV SEVERE PAIN (7-10 PAIN SCALE) 03/26/25 01:00 03/26/25 17:09 Clopidogrel Bisulfate (Plavix) 75 mg DAILY PO 03/27/25 10:00 Isosorbide Mononitrate (Imdur Er Tablet) 30 mg DAILY PO 03/26/25 10:00 03/26/25 09:30 Ranolazine (Ranexa ER) 500 mg BID PO 03/26/25 10:00 03/26/25 09:29 Atorvastatin Calcium (Lipitor) 80 mg HS PO 03/26/25 22:00 Review of Systems Constitutional: denies chills, denies fever, denies malaise Eyes: denies eye pain, denies vision change ENT: denies ear pain, denies headache, denies nasal congestion, denies painful swallowing, denies voice change Cardiovascular: denies chest pain, denies edema, denies orthopnea, denies palpitations, denies paroxysmal nocturnal dyspnea Respiratory: denies cough, denies shortness of breath Gastrointestinal: denies constipation, denies diarrhea, denies nausea, denies vomiting Genitourinary: denies dysuria, denies frequent urination, denies urethral discharge Musculoskeletal: denies back pain, denies joint pain, denies muscle pain Skin: denies bruising, denies itching, denies rash Neurological: denies focal weakness, denies headache, denies sensory changes Psychiatric: denies anxiety, denies depression Endocrine: denies polydipsia, denies polyuria Hematologic/Lymphatic: denies easy bleeding, denies easy bruising, denies enlarged lymph nodes Allergic/Immunologic: denies allergy, denies hives Vital Signs Vital Signs Date Time Temp Pulse Resp B/P (MAP) Pulse Ox O2 Delivery O2 Flow Rate FiO2 03/26/25 20:00 72 03/26/25 20:00 Room Air* 0 21 03/26/25 17:45 18 113/72 03/26/25 16:46 97.9 90 97.9 Physical Exam General Appearance: alert, no distress HEENT: EOMI, PERRLA, normal external inspect of ears, no icterus, no nasal drainage Neck: no carotid bruit, no jugular venous distention (JVD), no lymphadenopathy Chest: normal thorax Respiratory: clear to auscultation, normal air movement Cardiovascular: regular rate and rhythm, no diastolic murmur, no jugular venous distention (JVD), no rub, no systolic murmur Abdominal: soft, no hepatomegaly, no mass, no splenomegaly, no tenderness Genitourinary: grossly normal external Musculoskeletal: no joint tenderness, no swelling Extremities: normal pulses, no calf tenderness, no clubbing, no cyanosis, no edema Skin: no bruising, no jaundice, no rash Neurological: alert, No focal deficit SEPSIS Sepsis Screen Date sepsis recognized/suspect: Mar 25, 2025 Time Sepsis recognized/suspect: 1447 Recent Procedure: No On Antibiotic Therapy: No Respiratory Rate >20: No Heart Rate >90: No Temp<36 C (96.8 F) or >38.3 C: No SBP <90 or MAP <65 mmHG: No New Acute Mental Status Change: No Is the patient on CPAP, BIPAP,: No Physician Orders Ct Ab Pel Wo Con-No Oral Or Iv (03/25/25 14:57) Warp Placer (03/25/25 ) Electrocardigram (03/25/25 15:01) Pelvic (03/25/25 16:33) Head Without Contrast (03/25/25 17:10) Pt Eval 60min (03/25/25 17:10) St Eval Swallow Funct 45min (03/25/25 17:10) Stroke Assessment (03/25/25 17:16) Vital Signs .PER UNIT PROTOCOL (03/25/25 17:16) Warp Placer (03/25/25 17:16) Accurate Weight In Kg (03/25/25 17:16) Accucheck (03/25/25 17:16) 2 Large Bore Ivs (20mg Or Larg (03/25/25 17:16) Nursing Dysphagia Screen (03/25/25 17:16) Neuro Checks Per Unit Protocol (03/25/25 17:16) Admit (03/25/25:34) Code Status (03/25/25:34) Fall Precautions Initiated (03/25/25 ) Sequential Compression Device (03/25/25 ) Acetaminophen Tablet (Tylenol Tablet) (03/25/25 19:45) Enoxaparin Sodium (Lovenox) (03/26/25 10:00) Initiate Care Plan: Cva (Ische (03/25/25:34) Pt Eval 60min (03/25/25:34) St Eval Swallow Funct 45min (03/25/25:34) Glucose Blood (Accu-Chek Comfort Curve T (03/26/25 00:00) Insulin R (Human) (Insulin R) (03/26/25 00:00) Hydrocodone-Acet 5/325mg Tab ([place] 5/32 (03/25/25 19:45) Temazepam (Restoril) (03/25/25 19:45) Ondansetron Hcl (Zofran) (03/25/25 19:45) Condition: Fair (03/25/25:34) *Consult Dr. Gonzalez Sabillon (03/25/25:34) Nitroglycerin Sublingual (Ntrostat Subli (03/25/25 19:45) Morphine Sulfate Injection (03/25/25 19:45) Stat Ekg For Chest Pain (03/25/25:34) Notify Md Of Changes From Base (03/25/25:34) Fabric Normalizer For 24 Hours (03/25/25:34) Emergency Dysrhythmia Protocol (03/25/25:34) Rhythm Strips Once Every Shift (03/25/25:34) Oxygen By Nasal Cannula (03/25/25:34) Ceftriaxone 1gm/50ml (Rocephin) (03/25/25 19:45) Aspirin Chewable Tablet (03/26/25 10:00) Pantoprazole Tablet (Protonix Tablet) (03/26/25 10:00) Labetalol Hcl (Labetalol Hcl) (03/25/25 19:45) Morphine Sulfate Injection (03/26/25 01:00) Clopidogrel Bisulfate (Plavix) (03/27/25 10:00) Isosorbide Mononitrate Tablet (Imdur Er (03/26/25 10:00) Ranolazine (Ranexa Er) (03/26/25 10:00) Electrocardigram (03/26/25 08:36) Brain Head Wo Contrast (03/26/25 19:34) Chest Xray 1 View (03/26/25 11:13) Mechanical Soft Diet (03/26/25 Dinner) Atorvastatin (Lipitor) (03/26/25 22:00) Vital Signs Date Time Temp Pulse Resp B/P (MAP) Pulse Ox O2 Delivery O2 Flow Rate FiO2 03/26/25 20:00 72 03/26/25 20:00 Room Air* 0 21 03/26/25 17:45 64 18 113/72 03/26/25 17:09 67 18 117/81 03/26/25 16:46 97.9 67 18 117/81 (93) 90 97.9 03/26/25 13:23 68 20 98/69 03/26/25 13:00 97.8 68 20 98/69 (79) 99 97.8 03/26/25 12:53 79 20 103/72 03/26/25 09:30 90/49 03/26/25 09:05 61 18 90/49 03/26/25 09:00 98.0 61 18 106/62 (77) 99 98.0 03/26/25 08:35 61 18 106/62 03/26/25 08:00 64 03/26/25 07:50 Room Air* 0 21 03/26/25 05:00 98.0 68 20 104/75 (85) 95 98.0 03/26/25 01:30 82 18 104/75 03/26/25 01:00 98.1 71 20 113/67 (82) 95 98.1 03/26/25 01:00 71 18 113/67 03/25/25 21:34 98.3 75 20 105/73 (84) 95 98.3 03/25/25 21:34 75 20 95 Room Air* 0 21 03/25/25 21:30 98.3 75 20 105/73 (84) 95 98.3 03/25/25 20:49 76 15 104/49 03/25/25 20:19 76 13 109/59 03/25/25 20:00 74 03/25/25 19:25 76 13 94 Room Air* 0 21 03/25/25 19:25 98.4 76 13 100/71 (81) 94 98.4 03/25/25 19:25 98.4 76 13 100/71 (81) 94 98.4 03/25/25 19:00 87 15 111/89 (96) 98 03/25/25 17:00 84 14 109/52 (71) 98 03/25/25 17:00 84 14 96 Room Air* 0 21 03/25/25 16:56 98.6 83 16 103/69 (80) 97 98.6 03/25/25 14:55 85 03/25/25 14:47 97.0 91 18 110/81 95 97.0 Laboratory Tests Test 03/25/25 15:08 03/25/25 17:22 Lactic Acid Level 2.2 mmol/L (0.4-2.0) *H 1.6 mmol/L (0.4-2.0) White Blood Count 6.3 10^3/uL (4.4-10.8) Medications Medications Dose Ordered Sig/Damon Route Start Time Stop Time Status Last Admin Dose Admin Aspirin 81 mg DAILY PO 03/26/25 10:00 03/26/25 09:27 Enoxaparin Sodium 40 mg DAILY SC 03/26/25 10:00 03/26/25 09:26 Isosorbide Mononitrate 30 mg DAILY PO 03/26/25 10:00 03/26/25 09:30 Pantoprazole Sodium 40 mg DAILY PO 03/26/25 10:00 03/26/25 09:26 Ranolazine 500 mg BID PO 03/26/25 10:00 03/26/25 09:29 Results Labs Test 03/26/25 12:35 03/25/25 19:27 03/25/25 17:22 03/25/25 16:08 Range/Units POC Glucose 221 H 70-106 mg/dl Troponin I High Sensitivity < 3 L </=34 ng/L Lactic Acid Level 1.6 0.4-2.0 mmol/L Prothrombin Time 10.0 9.3-11.8 sec Prothrombin Time INR 0.94 0.9-1.15 Test 03/25/25 16:05 03/25/25 15:08 Range/Units Urine Color Yellow Yellow Urine Clarity Turbid H Clear Urine pH 5.5 5.0-9.0 Urine Specific B[place] 1.031 1.001-1.035 Urine Protein Trace H Negative Urine Ketones Negative Negative Urine Blood 3+ H Negative /uL Urine Nitrite Negative Negative Urine Bilirubin Negative Negative Urine Urobilinogen Normal Negative mg/dL Urine Leukocyte Esterase 3+ Negative /uL Urine RBC 97 0 - 4 /hpf Urine Microscopic WBC 300 H 0-5 /HPF Urine Squamous Epithelial Cells Few <5 /hpf Urine Bacteria None seen None Seen /hpf Urine Yeast (Budding) Occasional None Seen /hpf Urine Glucose 4+ H Normal mg/dL White Blood Count 6.3 4.4-10.8 10^3/uL Red Blood Count 4.47 4.0-5.20 10^6/uL Hemoglobin 13.5 12.2-16.2 g/dL Hematocrit 40.1 36.0-46.0 % Mean Corpuscular Volume 89.8 80.0-100.0 fL Mean Corpuscular Hemoglobin 30.2 28.0-32.0 pg Mean Corpuscular Hemoglobin Concent 33.7 32.0-36.0 g/dL Red Cell Distribution Width 14.8 H 11.8-14.3 % Platelet Count 197 140-450 10^3/uL Mean Platelet Volume 8.5 6.9-10.8 fL Neutrophils (%) (Auto) 66.0 37.0-80.0 % Lymphocytes (%) (Auto) 26.3 10.0-50.0 % Monocytes (%) (Auto) 4.9 0.0-12.0 % Eosinophils (%) (Auto) 2.2 0.0-7.0 % Basophils (%) (Auto) 0.6 0.0-2.0 % Neutrophils # (Auto) 4.2 1.6-8.6 10 ^3/uL Lymphocytes # (Auto) 1.7 0.4-5.4 10 ^3/uL Monocytes # (Auto) 0.3 0-1.3 10 ^3/uL Eosinophils # (Auto) 0.1 0-0.8 10 ^3/uL Basophils # (Auto) 0 0-0.2 10 ^3/uL Nucleated Red Blood Cells 0.1 % Sodium Level 139 136-145 mmol/L Potassium Level 4.4 3.5-5.1 mmol/L Chloride Level 103 98-107 mmol/L Carbon Dioxide Level 27 20-31 mmol/L Anion Gap 9 5-15 Blood Urea Nitrogen 14 9-23 mg/dL Creatinine 1.08 H 0.550-1.02 mg/dL Glomerular Filtration Rate Calc 58 >90 mL/min BUN/Creatinine Ratio 13.0 10.0-20.0 Serum Glucose 316 H 74-106 mg/dL Calcium Level 9.7 8.7-10.4 mg/dL Total Bilirubin 0.3 0.2-1.0 mg/dL Aspartate Amino Transferase (AST) 10 L 13-40 U/L Alanine Aminotransferase (ALT) < 9 7-40 U/L Alkaline Phosphatase 162 H 46-116 U/L Total Protein 6.7 5.7-8.2 g/dL Albumin 4.2 3.2-4.8 g/dL Plan 1. Strokelike symptoms Monitor, neurology consult, MRI brain 2. CAD with stent Monitor 3. DM 2 and neuropathy Monitor, insulin sliding scale, HgbA1c 4. Acute cystitis with hematuria Monitor, IV antibiotics 5. Obesity Monitor, lipid panel, PPI 6. History of CVA Monitor normal neurology consult 7. History of ESBL in urine Monitor, IV antibiotics Plan discussed with: Patient, Other TED HUSSEIN NP Mar 25, 2025 19:46
--- NOTE | 2025-03-25 20:13 | DVH ---
INDICATION: lower abd pain TECHNIQUE: Multiple real-time grayscale transabdominal sonographic images along with color and duplex Doppler of the uterus and ovaries were obtained. COMPARISON: CT PELVIS WO CONTRAST on DOS: 11/03/22, US PELVIC on DOS: 10/25/22, US PELVIC on DOS: 10/21/22 FINDINGS: The uterus measures 8.63 x 5.68 x 6.14 cm. There is a Heterogeneous solid intramural mass in the uterus measuring 2.9 x 2.86 x 3.34 cm likely a fibroid. The endometrial stripe was not measured The right ovary not visualized. The left ovary not visualized. IMPRESSION: 1. Grossly unremarkable pelvic ultrasound. 2. Intramural fibroid 3. No adnexal masses 4. Patient refused transvaginal exam
[2025-03-25] MEDS: MORPHINE SULFATE INJ 2 MG/ml SYRG IV PRN (20:19)
[2025-03-25] MEDS: ONDANSETRON HCL 4 MG/2 ML VIAL IV PRN (20:19)
[2025-03-25] MEDS: MORPHINE SULFATE 4 MG/ML SYR/VIAL ONE (20:29)
[2025-03-25 21:30] VITALS: BP 105/73; PULSE 75; RESP 20; TEMP 98.3; O2SAT 95
[2025-03-25 21:34] VITALS: BP 105/73; PULSE 75; RESP 20; TEMP 98.3; O2SAT 95
[2025-03-25] MEDS: ATORVASTATIN 20 MG TAB PO SCH (21:53)
[2025-03-25] MEDS: ACCU-CHEK COMFORT CURVE STRIP VI SCH (23:40)
[2025-03-25] MEDS: InsuLIN REG 1unit/0.01ml Soln (100units/ml) SC SCH (23:41)
[2025-03-26] VITALS (8 sets, daily range): BP systolic 98–117; BP diastolic 62–81; PULSE 61–72; RESP 18–20; TEMP 97.1–98.1; O2SAT 90–99
[2025-03-26] MEDS: MORPHINE SULFATE 4 MG/ML SYR/VIAL IV PRN (01:00)
--- NOTE | 2025-03-26 08:39 | DVHINCON2 ---
Date of service: Mar 26, 2025 History of Present Illness HPI Patient is a 59-year-old female who presented to the hospital with 1 day of abdominal pain. Abdominal pain was in the middle to the lower part of the abdomen. She also had some constipation and dysuria. While being managed in emergency room, the patient had episodes of difficulty finding words and experienced stuttering. She was admitted with possible stroke and has been seen by Neurology. She mentions she did have some chest discomfort also. Cardiology is involved for cardiac aspects of care. She is known to our practice from before. She mentions that she had stopped taking Plavix around 6 days prior to presentation (wanted to have some type of dental management). She had not come to our office for evaluation prior to dental evaluation. It seems that she also had not been taking some other medications also. Does have history of uterine prolapse after cervical cancer surgery. Does have baseline history of coronary artery disease. During earlier admission in June/2024, the patient did have some chest pain with abnormal troponin and was found to have non-STEMI. Cardiac catheterization at that point revealed multivessel coronary artery disease and the patient was sent to [place] for the suggested CABG surgery. It seems that in [place] they did not do the CABG and the patient had only 1 stent. Later the patient was discharged home from [place]. In the middle of July patient came back with chest discomfort to our facility and with diagnosis of unstable angina was sent back to [place]. In [place], the patient again had another stent. I had an opportunity to talk to the cargo station worker in [place]. It seems that during the 1st admission to [facility], they did put 1 stent in LAD. During the 2nd admission they put another stent in c ircumflex. It is of note that the patient did have LAD with trifurcation with disease in all of them. Reportedly (as per cargo station worker in [place]) LAD stent has resulted in pinching of the diagonals. Patient mentions compliance with aspirin/Plavix. Patient also has history of inflammatory bowel disease/ulcerative colitis/Crohn disease. She also has diverticular disease. She repeatedly presents with abdominal pain. Home Meds Active Scripts Lactulose (Lactulose) 10 Gm/15 Ml [place], 10 GM PO BID for 30 Days, #120 ML Prov:TAMI ROOT HYDRODYNAMICS PROFESSOR 01/18/25 Ranolazine (Ranolazine ER) 500 Mg Tab, 500 MG PO BID for 30 Days, #60 TAB Prov:TED HUSSEIN ASSOCIATE TEAM PHYSICIAN 07/30/24 Baclofen (Baclofen) 10 Mg Tab, 5 MG PO Q8HP PRN for 7 Days, #21 TAB Prov:TED HUSSEIN ASSOCIATE TEAM PHYSICIAN 07/30/24 Isosorbide Mononitrate (Isosorbide Mononitrate Er) 30 Mg Tab, 1 TAB PO DAILY, #30 TAB 5 Refills Prov:TED HUSSEIN ASSOCIATE TEAM PHYSICIAN 07/30/24 Lidocaine (LIDODERM 5% TOPICAL PATCH) 1 Patch Ph, 1 PATCH TOP DAILY for 30 Days, #30 PATCH 0 Refills Prov:MIAN ROMO ASSOCIATE TEAM PHYSICIAN 06/02/24 Polyethylene Glycol 3350 (Miralax) 17 Gm Pow, 17 GM PO DAILY for 15 Days, #15 POW Prov:TED HUSSEIN ASSOCIATE TEAM PHYSICIAN 05/03/24 Albuterol Sulfate (Albuterol Sulfate Hfa) 108 Mcg/Act Aer, 108 MCG IN BID PRN for 10 Days, #1 AER 0 Refills Prov:LILI LUNSFORD DO 12/01/22 Reported Medications Docusate Sodium (Docusate Sodium) 100 Mg Cap, 1 CAP PO BID for 30 Days, #60 07/03/24 Simvastatin (Simvastatin) 20 Mg Tab, 1 TAB PO DAILY for 90 Days, #90 07/03/24 Hydrocodone-Acetaminophen (Hydrocodone Bitartrate/AC 10-325 mg) 1 Tab Tab, 1 TAB PO Q6HR PRN for CHRONIC PAIN for 30 Days, #120 07/03/24 Potassium Chloride (Potassium Chloride ER) 10 Meq Tab, 1 TAB PO BID for 90 Days, #180 07/03/24 Paroxetine Hydrochloride (Paroxetine Hydrochloride) 20 Mg Tab, 1 TAB PO DAILY for 90 Days, #90 05/01/24 Tirzepatide (Mounjaro) 7.5 Mg/0.5 Ml Inj, 7.5 MG SC QWEEKLY for 28 Days, #2 10/18/23 Sitagliptin Phosphate (Januvia) 100 Mg Tab, 1 TAB PO DAILY 10/18/23 Clopidogrel Bisulfate (CLOPIDOGREL) 75 Mg Tab, 1 TAB PO DAILY 10/18/23 Furosemide (Furosemide) 40 Mg Tab, 1 TAB PO BID 10/18/23 Atorvastatin Calcium (ATORVASTATIN CALCIUM) 20 Mg Tab, 1 TAB PO DAILY 10/17/23 Cholecalciferol (Vitamin D-3 Super Strengt) 2,000 Unit Tab, 1 TAB PO DAILY 10/17/23 Gabapentin (Gabapentin) 300 Mg Cap, 1 CAP PO Q8HR for NEUROPATHIC PAIN for 30 Days, #90 10/17/23 Aspirin (Aspirin Low Dose) 81 Mg Tab, 1 TAB PO DAILY 10/17/23 Balsalazide Disodium (Balsalazide Disodium) 750 Mg Cap, 3 CAP PO BID for 30 Days, #180 10/17/23 Past Medical History Others Past medical history includes coronary artery disease, diabetes mellitus, 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 She has had kidney stones/hydronephrosis/hydroureter before. Uses a walker for ambulation (se condary to old CVA). Patient was found to have multivessel coronary artery disease (left heart catheterization of July 09, 2024). On July 12 2024, the patient was sent to higher level of care ([facility]) for possible CABG surgery. Patient ended up having 1 stent in LAD and CABG was not performed. At next presentation, (still in July 2024) patient was sent back to [facility] and had another stent (this time in LCX). Reportedly the patient does have pinching of diagonals. Family History: No pertinent Hx Patient Family History: FH: breast cancer G8 SISTER FH: cancer FH: liver cancer G8 MOTHER, , Cause: Liver cancer Family history: Alzheimer's disease G8 MOTHER, , Cause: Liver cancer, Onset:Unknown Family history: Cardiovascular disease G8 FATHER, , Cause: CHF (congestive heart failure), Onset:Unknown Family history: Diabetes mellitus G8 BROTHER, Onset:Unknown Thyroid disease 19 CHILD Thyroid disease 19 CHILD Smoker: No Hx (Negative) Drugs: None Domestic Violence: Neg Review of Systems Constitutional: No symptom reported Ears, Nose, & Throat: No symptom reported Eyes: No symptom reported Pulmonary/Respiratory: Pleuritic Chest Pain Cardiovascular: Chest Pain Gastrointestinal: Abdominal Pain Genitourinary: Dysuria Psychiatric: Change in speech All Other Systems 14 point review of system was performed. Relevant findings as per above and as per HPI. Otherwise negative. H&P Exam Vital Signs Vital Signs Date Time Temp Pulse Resp B/P (MAP) Pulse Ox O2 Delivery O2 Flow Rate FiO2 03/26/25 05:00 98.0 68 20 104/75 (85) 95 98.0 03/25/25 21:34 Room Air* 0 21 General Appeara: Obese Head Exam: Normal inspection Eye Exam: bilateral eye PERRL Mouth: Normal Inspection Pulmonary/Respiratory: Lungs clear Cardiovascular/Chest: Regular rate Peripheral Pulses: 2+ carotid (R), 2+ carotid (L) Abdominal Exam: Normal bowel sounds, Soft SERVICE DELIVERY MANAGER Exam: Abnormal speech Neuro/Mental St: Alert, Oriented Appearance: Appropriate appearance Eye contact/ Speech: Cooperative Labs/Xrays Labs Test 03/26/25 05:07 03/25/25 19:27 03/25/25 17:22 03/25/25 16:08 Range/Units POC Glucose 143 H 70-106 mg/dl Troponin I High Sensitivity < 3 L </=34 ng/L Lactic Acid Level 1.6 0.4-2.0 mmol/L Prothrombin Time 10.0 9.3-11.8 sec Prothrombin Time INR 0.94 0.9-1.15 Test 03/25/25 16:05 03/25/25 15:08 Range/Units Urine Color Yellow Yellow Urine Clarity Turbid H Clear Urine pH 5.5 5.0-9.0 Urine Specific [place] 1.031 1.001-1.035 Urine Protein Trace H Negative Urine Ketones Negative Negative Urine Blood 3+ H Negative /uL Urine Nitrite Negative Negative Urine Bilirubin Negative Negative Urine Urobilinogen Normal Negative mg/dL Urine Leukocyte Esterase 3+ Negative /uL Urine RBC 97 0 - 4 /hpf Urine Microscopic WBC 300 H 0-5 /HPF Urine Squamous Epithelial Cells Few <5 /hpf Urine Bacteria None seen None Seen /hpf Urine Yeast (Budding) Occasional None Seen /hpf Urine Glucose 4+ H Normal mg/dL White Blood Count 6.3 4.4-10.8 10^3/uL Red Blood Count 4.47 4.0-5.20 10^6/uL Hemoglobin 13.5 12.2-16.2 g/dL Hematocrit 40.1 36.0-46.0 % Mean Corpuscular Volume 89.8 80.0-100.0 fL Mean Corpuscular Hemoglobin 30.2 28.0-32.0 pg Mean Corpuscular Hemoglobin Concent 33.7 32.0-36.0 g/dL Red Cell Distribution Width 14.8 H 11.8-14.3 % Platelet Count 197 140-450 10^3/uL Mean Platelet Volume 8.5 6.9-10.8 fL Neutrophils (%) (Auto) 66.0 37.0-80.0 % Lymphocytes (%) (Auto) 26.3 10.0-50.0 % Monocytes (%) (Auto) 4.9 0.0-12.0 % Eosinophils (%) (Auto) 2.2 0.0-7.0 % Basophils (%) (Auto) 0.6 0.0-2.0 % Neutrophils # (Auto) 4.2 1.6-8.6 10 ^3/uL Lymphocytes # (Auto) 1.7 0.4-5.4 10 ^3/uL Monocytes # (Auto) 0.3 0-1.3 10 ^3/uL Eosinophils # (Auto) 0.1 0-0.8 10 ^3/uL Basophils # (Auto) 0 0-0.2 10 ^3/uL Nucleated Red Blood Cells 0.1 % Sodium Level 139 136-145 mmol/L Potassium Level 4.4 3.5-5.1 mmol/L Chloride Level 103 98-107 mmol/L Carbon Dioxide Level 27 20-31 mmol/L Anion Gap 9 5-15 Blood Urea Nitrogen 14 9-23 mg/dL Creatinine 1.08 H 0.550-1.02 mg/dL Glomerular Filtration Rate Calc 58 >90 mL/min BUN/Creatinine Ratio 13.0 10.0-20.0 Serum Glucose 316 H 74-106 mg/dL Calcium Level 9.7 8.7-10.4 mg/dL Total Bilirubin 0.3 0.2-1.0 mg/dL Aspartate Amino Transferase (AST) 10 L 13-40 U/L Alanine Aminotransferase (ALT) < 9 7-40 U/L Alkaline Phosphatase 162 H 46-116 U/L Total Protein 6.7 5.7-8.2 g/dL Albumin 4.2 3.2-4.8 g/dL Assessment/Plan Plan Patient is a 59-year-old female who presented to the hospital with 1 day of abdominal pain. Abdominal pain was in the middle to the lower part of the abdomen. She also had some constipation and dysuria. While being managed in emergency room, the patient had episodes of difficulty finding words and experie nced stuttering. She was admitted with possible stroke and has been seen by Neurology. She mentions she did have some chest discomfort also. Cardiology is involved for cardiac aspects of care. She is known to our practice from before. She mentions that she had stopped taking Plavix around 6 days prior to presentation (wanted to have some type of dental management). She had not come to our office for evaluation prior to dental evaluation. It seems that she also had not been taking some other medications also. Does have history of uterine prolapse after cervical cancer surgery. Does have baseline history of coronary artery disease. During earlier admission in June/2024, the patient did have some chest pain with abnormal troponin and was found to have non-STEMI. Cardiac catheterization at that point revealed multivessel coronary artery disease and the patient was sent to [facility] for the suggested CABG surgery. It seems that in [place] they did not do the CABG and the patient had only 1 stent. Later the patient was discharged home from [facility]. In the middle of July patient came back with chest discomfort to our facility and with diagnosis of unstable angina was sent back to [place]. In [place], the patient again had another stent. I had an opportunity to talk to the cargo station worker in [place]. It seems that during the 1st admission to [facility], they did put 1 stent in LAD. During the 2nd admission they put another stent in circumflex. It is of note that the patient did have LAD with trifurcation with disease in all of them. Reportedly (as per cargo station worker in [place]) LAD stent has resulted in pinching of the diagonals. Patient mentions compliance with aspirin/Plavix. Patient also has history of inflammatory bowel disease/ulcerative colitis/Crohn disease. She also has diverticular disease. She repeatedly presents with abdominal pain. Not in acute distress. No JVD. Mucosa is pink and dry. No carotid bruit. Lungs are clear to auscultation. Not using accessory muscles of breathing. Cardiac: Regular, no thrills/gallop. Abdomen is soft. Lower abdominal tenderness can be elicited. There is no rebound. Bowel sound is positive There was no gross mass/hepatomegaly. Extremities do not reveal edema. Dorsalis pedis is 2+ bilateral. 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 She has had kidney stones/hydronephrosis/hydroureter before. Uses a walker for ambulation (secondary to old CVA). Patient was found to have multivessel coronary artery disease (left heart catheterization of July 09, 2024). On July 12 2024, the patient was sent to higher level of care ([place]) for possible CABG surgery. Patient ended up having 1 stent in LAD and CABG was not performed. At next presentation, (still in July 2024) patient was sent back to [place] and had another stent (this time in LCX). Reportedly the patient does have pinching of diagonals. Echocardiogram of December 16, 2022 (performed in [facility]) revealed ejection fraction of 60%, mild TR and right ventricular systolic pressure of 27 mm Hg. Echocardiogram of October 18, 2023 reported ejection fraction 55-60%, mild MR/TR and right ventricular systolic pressure of 25 mm Echocardiogram of May 05, 2024 revealed ejection fraction of 50-55%, normal diastolic, trace MR/TR and right ventricular systolic pressure of 28 mm Hg Echocardiogram of July 05, 2024 had revealed ejection fraction of 40%, trace MR/TR and right ventricular systolic pressure of 30 mm Hg Echocardiogram of July 29, 2024 revealed ejection fraction of 50-55%, no wall motion abnormality, trace mitral regurgitation, no tricuspid regurgitation. As there was no good tricuspid regurgitation jet, right ventricular systolic pressure could not be estimated Echocardiogram of November 12, 2024 revealed: LVEF of 60%, no wall motion abnormality. Trace mitral/tricuspid regurgitation. Right ventricular systolic pressure of 28 mm Hg Nuclear stress test of January 03, 2022 (performed as outpatient) revealed ejection fraction of 80% and no evidence for ischemia/scar. Left heart catheterization of July 09 2024 had revealed triple-vessel coronary artery disease Hemoglobin: 13.5 Creatinine: 1.08 Potassium: 4.4 Troponin (high sensitive): <3 - <3 - <[address] scan revealed: IMPRESSION: No acute noncontrast CT abnormality in the abdomen/pelvis. Punctate nonobstructing right renal calculus. Constipation. Mild colonic diverticulosis. Cholecystectomy. Uterine fibroid 3-vessel coronary artery calcifications. Pelvic ultrasound revealed: IMPRESSION: 1. Grossly unremarkable pelvic ultrasound. 2. Intramural fibroid 3. No adnexal masses 4. Patient refused transvaginal exam CT of the head revealed: IMPRESSION: No intracranial hemorrhage or mass effect. Telemetry revealed sinus rhythm Patient is a 59-year-old female who presented for abdominal pain. While being managed in emergency room the patient did have episode of stuttering and difficulty finding words. Is admitted with questionable TIA versus CVA. Does have old history of CVA. Usually should have been on aspirin/Plavix for history of coronary artery disease. Has not been compliant with Plavix without commu nicating with Cardiology (was planning to go for some type of dental workup). Does have baseline history of kidney stone and uterine fibroid which could have contributed to the abdominal pain. Also has history of ulcerative colitis and repeatedly presents with abdominal pain. Does have history of coronary artery disease. Presentation is not considered cardiac at this point. Has had repeated ischemic workups. Noncompliance could have contributed to the clinical picture Abdominal pain CVA? Coronary artery disease, history of Triple-vessel coronary artery disease Status post PCI (drug-eluting stent deployment of LAD and LCX).. History of old CVA with left hemiparesis History of Crohn disease/ulcerative colitis Inflammatory Bowel Disease Constipation Hyperlipidemia Status post carotid endarterectomy Diverticular disease, history of Noncompliance with medication and followups Renal Calculi Uterine Leiomyoma Cardiac suggestion for management: Manage in tele Follow-up electrolytes and kidney function tests and correct abnormalities. Keep potassium above 4 and magnesium above 2 For now, dual antiplatelet therapy is advised. Aspirin 81 mg daily Plavix (clopidogrel): 75 mg daily Imdur, long-actin mg daily High potency statin Chest x-ray EKG Request for Echocardiogram Neurology evaluation/follow-up Consider MRI of the brain Consider imaging of the carotids (only if Neurology agrees) Evaluation and management of the abdominal pain and dysuria as per primary team. Consider GI evaluation Lifestyle and risk factor modification is advised Patient was counseled to be compliant with medication and followups Further evaluation and management depends on the above and clinical course A total of 75 minutes was spent reviewing the patient record, examining the patient, making a diagnostic and therapeutic plan, discussing this plan with medical personnel, following up on diagnostic studies and following the patient for clinical stability excluding any and all procedures. At least 50% of this time was spent in direct, [id number] contact. Thank you for allowing me to participate in this patient's care. Further recommendations will depend on patient's clinical course. Please do not hesitate to contact me if you have any questions or concerns. This medical document was created using electronic medical record system with [employer] computerized dictation system. Although this document has been carefully reviewed, there may still be some phonetic and typographical errors. These areas are purely typographical due to the imperfection of the software programs, and do not reflect any compromise in the patient's medical care Plan discussed with: Patient, Other (nurse) BALTAZAR SOMMERS MD Mar 26, 2025 08:39
--- NOTE | 2025-03-26 08:48 | ECG ---
[facility] Test Date: 2025-03-26 Test Time: 08:46:36 Pat Name: KAVYA TEJEDA Department: Room: [facility]8T B Gender: F Armor Officer: sisi : 1965 Requested By: BALTAZAR SOMMERS Order Number: [id number] Reading MD: Humberto Alvarez Measurements Intervals [place] Rate: 60 P: 23 AR: 138 QRS: -34 QRSD: 111 T: -41 QT: 412 QTc: 412 Interpretive Statements Sinus rhythm Left axis deviation Borderline T abnormalities, diffuse leads Electronically Signed On 03-26-2025 17:30:19 PST by Humberto Alvarez Please click the below link to view image of tracing.
[2025-03-26] MEDS: PANTOPRAZOLE 40 MG TAB PO SCH (09:26)
[2025-03-26] MEDS: ENOXAPARIN SOD 40 MG/0.4 ML SYRINGE SC SCH (09:26)
[2025-03-26] MEDS: RANOLAZINE ER 500 MG TAB PO SCH (09:29)
[2025-03-26] MEDS: ISOSORBIDE MONONITRATE ER 60 MG TAB PO SCH (09:30)
[2025-03-26] MEDS: CLOPIDOGREL BISULFATE 75 MG TAB PO ONE (09:38)
[2025-03-26] MEDS ORDERED: ATORVASTATIN 20 MG TAB PO SCH (10:00)
--- NOTE | 2025-03-26 11:46 | DVHPN2 ---
Progress Note - Dictate Date Seen: Mar 26, 2025 Medical Necessity Reason Pt with a Central, PICC or Fol: No vital signs Vital Sign Date Time Temp Pulse Resp B/P (MAP) Pulse Ox O2 Delivery O2 Flow Rate FiO2 03/26/25 09:30 90/49 03/26/25 09:05 61 18 03/26/25 09:00 98.0 99 98.0 03/25/25 21:34 Room Air* 0 21 Total Intake and Output 03/25/25 03/25/25 03/26/25 15:00 23:00 07:00 Intake Total 50 ml 0 ml Balance 50 ml 0 ml medications Current Medications Medications Dose Ordered Sig/Damon Route Start Time Stop Time Status Last Admin Dose Admin Acetaminophen 325 mg Q6HP PRN PO 03/25/25 19:45 Enoxaparin Sodium 40 mg DAILY SC 03/26/25 10:00 03/26/25 09:26 40 MG Diagnostic Test (Pha) 1 strip Q6HR 03/26/25 00:00 03/26/25 05:32 1 STRIP Insulin Human Regular Q6HR SC 03/26/25 00:00 03/26/25 05:31 2 UNITS Acetaminophen/ Hydrocodone Bitart 1 tab Q4HP PRN PO 03/25/25 19:45 Temazepam 15 mg QHSP PRN PO 03/25/25 19:45 Ondansetron HCl 4 mg Q4HP PRN IV 03/25/25 19:45 03/25/25 20:19 4 MG Nitroglycerin 0.4 mg Q5MINP PRN SL 03/25/25 19:45 Morphine Sulfate 2 mg Q30M PRN IV 03/25/25 19:45 Ceftriaxone Sodium 50 ml @ 100 mls/hr DAILY IV 03/25/25 19:45 03/26/25 09:28 100 MLS/HR Aspirin 81 mg DAILY PO 03/26/25 10:00 03/26/25 09:27 81 MG Atorvastatin Calcium 80 mg DAILY PO 03/26/25 10:00 Hold Pantoprazole Sodium 40 mg DAILY PO 03/26/25 10:00 03/26/25 09:26 40 MG Labetalol HCl 10 mg Q2HPRN PRN IV 03/25/25 19:45 Morphine Sulfate 2 mg Q4HPRN PRN IV 03/26/25 01:00 03/26/25 08:35 2 MG Clopidogrel Bisulfate 75 mg DAILY PO 03/27/25 10:00 Isosorbide Mononitrate 30 mg DAILY PO 03/26/25 10:00 03/26/25 09:30 30 MG Ranolazine 500 mg BID PO 03/26/25 10:00 03/26/25 09:29 500 MG laboratory and microbiology Laboratory Tests 03/25/25 15:08 Test 03/25/25 15:08 Range/Units Serum Glucose 316 H 74-106 mg/dL Problem List 1. Strokelike symptoms Monitor, neurology consult, MRI brain 2. CAD with stent Monitor 3. DM 2 and neuropathy Monitor, insulin sliding scale, HgbA1c 4. Acute cystitis with hematuria Monitor, IV antibiotics 5. Obesity Monitor, lipid panel, PPI 6. History of CVA Monitor normal neurology consult 7. History of ESBL in urine Monitor, IV antibiotics Assessment/Plan Subjective Patient is awake and alert. Objective Patient was admitted for abdominal pain related to recurrent cystitis. Patient was given pain medication and then had strokelike symptoms. Patient has a history of CVA in the past. Patient could have had a TIA or exacerbation of old stroke symptoms from acute cystitis. MRI of the brain is pending. Patient has a history of CAD with stents to her LAD and circumflex. Plan Continue dual antiplatelet therapy. Await MRI results. Continue antibiotics for UTI. Plan discussed with: Patient, Other TED HUSSEIN NP Mar 26, 2025 11:46
--- NOTE | 2025-03-26 11:47 | DVH ---
MRI BRAIN WITHOUT CONTRAST HISTORY: Altered mental status. Rule out stroke. COMPARISON: CT HEAD WITHOUT CONTRAST on DOS: 03/25/25, MRI BRAIN HEAD WO CONTRAST on DOS: 07/29/24. TECHNIQUE: MRI of the brain was obtained without contrast. FINDINGS: Brain: No acute infarct or intracranial hemorrhage. No mass effect. White matter is within normal limits for age. Chronic microhemorrhages are not present. Ventricles: Normal for age. Extra-axial spaces: Normal for age. Intracranial Flow Voids: Intact. Orbits: Normal. Paranasal Sinuses and Jose-mastoid: Clear. Craniocervical Junction: Unremarkable. Osseous Structures: Unremarkable. IMPRESSION: No acute intracranial abnormality. Specifically, no acute infarct.
--- NOTE | 2025-03-26 14:50 | DVH ---
CHEST RADIOGRAPH INDICATION: Chest pain TECHNIQUE: Single frontal view of the chest was obtained COMPARISON: XY CHEST PORTABLE on DOS: 02/23/25, XY CHEST PORTABLE on DOS: 01/16/25, XY CHEST PORTABLE on DOS: 11/10/24 FINDINGS: Lines and Tubes: None Lungs: No focal consolidation. Pleura: No effusion. No pneumothorax. Cardiomediastinal contours: Unremarkable Bones: No acute osseous abnormality. IMPRESSION: 1. No acute cardiopulmonary disease.
[2025-03-26] MEDS: ATORVASTATIN 20 MG TAB PO SCH (21:08)
[2025-03-27] VITALS (8 sets, daily range): BP systolic 100–121; BP diastolic 70–85; PULSE 65–82; RESP 16–18; TEMP 97.1–98.5; O2SAT 90–98
--- NOTE | 2025-03-27 08:31 | DVHPN2 ---
Progress Note - Dictate Date Seen: Mar 27, 2025 Medical Necessity Reason Pt with a Central, PICC or Fol: No vital signs Vital Sign Date Time Temp Pulse Resp B/P (MAP) Pulse Ox O2 Delivery O2 Flow Rate FiO2 03/27/25 06:12 73 18 119/74 03/27/25 05:00 97.8 92 97.8 03/26/25 20:00 Room Air* 0 21 Total Intake and Output 03/26/25 03/26/25 03/27/25 15:00 23:00 07:00 Intake Total 1480 ml 0 ml Balance 1480 ml 0 ml medications Current Medications Medications Dose Ordered Sig/Damon Route Start Time Stop Time Status Last Admin Dose Admin Acetaminophen 325 mg Q6HP PRN PO 03/25/25 19:45 Enoxaparin Sodium 40 mg DAILY SC 03/26/25 10:00 03/26/25 09:26 40 MG Diagnostic Test (Pha) 1 strip Q6HR 03/26/25 00:00 03/27/25 05:47 1 STRIP Insulin Human Regular Q6HR SC 03/26/25 00:00 03/27/25 00:14 6 UNITS Acetaminophen/ Hydrocodone Bitart 1 tab Q4HP PRN PO 03/25/25 19:45 Temazepam 15 mg QHSP PRN PO 03/25/25 19:45 Ondansetron HCl 4 mg Q4HP PRN IV 03/25/25 19:45 03/25/25 20:19 4 MG Nitroglycerin 0.4 mg Q5MINP PRN SL 03/25/25 19:45 Morphine Sulfate 2 mg Q30M PRN IV 03/25/25 19:45 Ceftriaxone Sodium 50 ml @ 100 mls/hr DAILY IV 03/25/25 19:45 03/26/25 09:28 100 MLS/HR Aspirin 81 mg DAILY PO 03/26/25 10:00 03/26/25 09:27 81 MG Pantoprazole Sodium 40 mg DAILY PO 03/26/25 10:00 03/26/25 09:26 40 MG Labetalol HCl 10 mg Q2HPRN PRN IV 03/25/25 19:45 Morphine Sulfate 2 mg Q4HPRN PRN IV 03/26/25 01:00 03/27/25 05:30 2 MG Clopidogrel Bisulfate 75 mg DAILY PO 03/27/25 10:00 Isosorbide Mononitrate 30 mg DAILY PO 03/26/25 10:00 03/26/25 09:30 30 MG Ranolazine 500 mg BID PO 03/26/25 10:00 03/26/25 21:08 500 MG Atorvastatin Calcium 80 mg HS PO 03/26/25 22:00 03/26/25 21:08 80 MG laboratory and microbiology Laboratory Tests 03/25/25 15:08 Test 03/25/25 15:08 Range/Units Serum Glucose 316 H 74-106 mg/dL Assessment/Plan Patient is a 59-year-old female who presented to the hospital with 1 day of abdominal pain. Abdominal pain was in the middle to the lower part of the abdomen. She also had some constipation and dysuria. While being managed in emergency room, the patient had episodes of difficulty finding words and experienced stuttering. She was admitted with possible stroke and has been seen by Neurology. She mentions she did have some chest discomfort also. Cardiology is involved for cardiac aspects of care. She is known to our practice from before. She mentions that she had stopped taking Plavix around 6 days prior to presentation (wanted to have some type of dental management). She had not come to our office for evaluation prior to dental evaluation. It seems that she also had not been taking some other medications also. Does have history of uterine prolapse after cervical cancer surgery. Does have baseline history of coronary artery disease. During earlier admission in June/2024, the patient did have some chest pain with abnormal troponin and was found to have non-STEMI. Cardiac catheterization at that point revealed multivessel coronary artery disease and the patient was sent to [place] for the suggested CABG surgery. It seems that in [place] they did not do the CABG and the patient had only 1 stent. Later the patient was discharged home from [place]. In the middle of July patient came back with chest discomfort to our facility and with diagnosis of unstable angina was sent back to [place]. In [place], the patient again had another stent. I had an opportunity to talk to the bunk assembler in [place]. It seems that during the 1st admission to [place], they did put 1 stent in LAD. During the 2nd admission they put another stent in circumflex. It is of note that the patient did have LAD with trifurcation with disease in all of them. Reportedly (as per bunk assembler in [place]) LAD stent has resulted in pinching of the diagonals. Patient mentions compliance with aspirin/Plavix. Patient also has history of inflammatory bowel disease/ulcerative colitis/Crohn disease. She also has diverticular disease. She repeatedly presents with abdominal pain. Not in acute distress. No JVD. Mucosa is pink and dry. No carotid bruit. Lungs are clear to auscultation. Not using accessory muscles of breathing. Cardiac: Regular, no thrills/gallop. Abdomen is soft. Lower abdominal tenderness can be elicited. There is no rebound. Bowel sound is positive There was no gross mass/hepatomegaly. Extremities do not reveal edema. Dorsalis pedis is 2+ bilateral. 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 She has had kidney stones/hydronephrosis/hydroureter before. Uses a walker for ambulation (secondary to old CVA). Patient was found to have multivessel coronary artery disease (left heart catheterization of July 09, 2024). On July 12 2024, the patient was sent to higher level of care ([facility]) for possible CABG surgery. Patient ended up having 1 stent in LAD and CABG was not performed. At next presentation, (still in July 2024) patient was sent back to [place] and had another stent (this time in LCX). Reportedly the patient does have pinching of diagonals. Echocardiogram of December 16, 2022 (performed in [facility]) revealed ejection fraction of 60%, mild TR and right ventricular systolic pressure of 27 mm Hg. Echocardiogram of October 18, 2023 reported ejection fraction 55-60%, mild MR/TR and right ventricular systolic pressure of 25 mm Echocardiogram of May 05, 2024 revealed ejection fraction of 50-55%, normal diastolic, trace MR/TR and right ventricular systolic pressure of 28 mm Hg Echocardiogram of July 05, 2024 had revealed ejection fraction of 40%, trace MR/TR and right ventricular systolic pressure of 30 mm Hg Echocardiogram of July 29, 2024 revealed ejection fraction of 50-55%, no wall motion abnormality, trace mitral regurgitation, no tricuspid regurgitation. As there was no good tricuspid regurgitation jet, right ventricular systolic pressure could not be estimated Echocardiogram of November 12, 2024 revealed: LVEF of 60%, no wall motion abnormality. Trace mitral/tricuspid regurgitation. Right ventricular systolic pressure of 28 mm Hg Nuclear stress test of January 03, 2022 (performed as outpatient) revealed ejection fraction of 80% and no evidence for ischemia/scar. Left heart catheterization of July 09 2024 had revealed triple-vessel coronary artery disease Hemoglobin: 13.5 Creatinine: 1.08 Potassium: 4.4 Troponin (high sensitive): <3 - <3 - <[address] scan revealed: IMPRESSION: No acute noncontrast CT abnormality in the abdomen/pelvis. Punctate nonobstructing right renal calculus. Constipation. Mild colonic diverticulosis. Cholecystectomy. Uterine fibroid 3- vessel coronary artery calcifications. Pelvic ultrasound revealed: IMPRESSION: 1. Grossly unremarkable pelvic ultrasound. 2. Intramural fibroid 3. No adnexal masses 4. Patient refused transvaginal exam CT of the head revealed: IMPRESSION: No intracranial hemorrhage or mass effect. Chest xray revealed: IMPRESSION: 1. No acute cardiopulmonary disease. MRI of Brain reported: IMPRESSION: No acute intracranial abnormality. Specifically, no acute infarct. Telemetry revealed sinus rhythm Echocardiogram revealed: Left ventricle: Left ventricle was normal sized with normal systolic function. LVEF was 55-60%. There was no gross wall motion abnormality. Diastolic function of left ventricle was considered normal. Right ventricle: Right ventricle was normal sized with normal systolic function. Both atria were normal sized. Aortic valve: Aortic valve was trileaflet. There was no aortic insufficiency/stenosis. There was trace mitral/tricuspid regurgitation. There was no pulmonary valve insufficiency. Right ventricular systolic pressure was assessed normal at 24 mm Hg. There was no pericardial effusion. The IVC was normal size with normal respiratory variation. Patient is a 59-year-old female who presented for abdominal pain. While being managed in emergency room the patient did have episode of stuttering and difficulty finding words. Is admitted with questionable TIA versus CVA. Does have old history of CVA. Usually should have been on aspirin/Plavix for history of coronary artery disease. Has not been compliant with Plavix without communicating with Cardiology (was planning to go for some type of dental workup). Does have baseline history of kidney stone and uterine fibroid which could have contributed to the abdominal pain. Also has history of ulcerative colitis and repeatedly presents with abdominal pain. Does have history of coronary artery disease. Presentation is not considered cardiac at this point. Has had repeated ischemic workups. Noncompliance could have contributed to the clinical picture Abdominal pain CVA? Coronary artery disease, history of Triple-vessel coronary artery disease Status post PCI (drug-eluting stent deployment of LAD and LCX).. History of old CVA with left hemiparesis History of Crohn disease/ulcerative colitis Inflammatory Bowel Disease Constipation Hyperlipidemia Status post carotid endarterectomy Diverticular disease, history of Noncompliance with medication and followups Renal Calculi Uterine Leiomyoma Cardiac suggestion for management: Manage in tele Follow-up electrolytes and kidney function tests and correct abnormalities. Keep potassium above 4 and magnesium above 2 For now, dual antiplatelet therapy is advised (on ASA/Clopidogrel now). Continue Ranolazine/Imdur Neurology evaluation/follow-up Evaluation and management of the abdominal pain and dysuria as per primary team. Consider GI evaluation Lifestyle and risk factor modification is advised Patient was counseled to be compliant with medication and followups Cardiac harrison, can be followed as outpatient Further evaluation and management depends on the above and clinical course A total of 55 minutes was spent reviewing the patient record, examining the patient, making a diagnostic and therapeutic plan, discussing this plan with medical personnel, following up on diagnostic studies and following the patient for clinical stability excluding any and all procedures. At least 50% of this time was spent in direct, [id number] contact. Thank you for allowing me to participate in this patient's care. Further recommendations will depend on patient's clinical course. Please do not hesitate to contact me if you have any questions or concerns. This medical document was created using electronic medical record system with [employer] computerized dictation system. Although this document has been carefully reviewed, there may still be some phonetic and typographical errors. These areas are purely typographical due to the imperfection of the software programs, and do not reflect any compromise in the patient's medical care Plan discussed with: Patient, Other (nurse) BALTAZAR SOMMERS MD Mar 27, 2025 08:31
--- NOTE | 2025-03-27 08:42 | DVHSR ---
APPROVED REPORT EXAM: Two-dimensional and M-mode echocardiogram with Doppler and color Doppler. Blood Pressure: 106/62 mmHg INDICATION chief complaint of chest pain RISK FACTORS Obesity: Height: 5'2, Weight: 197 DIMENSIONS LVDd 4.2 (3.8-5.7cm) LA (2D) 3.4 (1.9-4.0cm) Aortic Root 3.1 (2.0-3.7cm) LVDs 2.9 (2.5-4.0cm) LA (MM) (1.9-4.0cm) Aortic Cusp Exc 1.6 (1.5-2.0cm) EF (%) 55.0 (55-70%) Rt. Atrium 3.6 (1.9-4.0cm) Asc. Aorta 2.7 cm IVSd 0.8 (0.7-1.1cm) RV (D) 4.0 (1.8-2.4cm) PWd 0.8 (0.7-1.1cm) Mitral Valve Mitral Mitral Stenosis E wave 0.66m/s MV Mean GR. mmHg A wave 0.94m/s MV Peak GR. 55mmHg E/A ratio 0.7 2D MVA cm2 DECEL Time 231ms PRESS 1/2 Time ms Aortic Valve Aortic Valve Aortic Stenosis V1 1.33m/s AO Mean GR. 4mmHg V2 1.47m/s AO Peak GR. 9mmHg LVOT Diameter 1.8 (1.8-2.4cm) Doppler BEVERLEY 2.30cm2 Pulmonic Valve V2 0.83m/s Tricuspid Valve TR Velocity 2.22m/s RVSP 23mmHg Conclusion Left ventricle: Left ventricle was normal sized with normal systolic function. LVEF was 55-60%. There was no gross wall motion abnormality. Diastolic function of left ventricle was considered normal. Right ventricle: Right ventricle was normal sized with normal systolic function. Both atria were normal sized. Aortic valve: Aortic valve was trileaflet. There was no aortic insufficiency/stenosis. There was trace mitral/tricuspid regurgitation. There was no pulmonary valve insufficiency. Right ventricular systolic pressure was assessed normal at 24 mm Hg. There was no pericardial effusion. The IVC was normal size with normal respiratory variation.
[2025-03-27] MEDS: CLOPIDOGREL BISULFATE 75 MG TAB PO SCH (09:42)
--- NOTE | 2025-03-27 13:14 | DVH ---
Date: 03/27/2025 12:23 PM Examination: XY KUB ABDOMEN SINGLE VIEW History: constipation COMPARISON: XY KUB ABDOMEN SINGLE VIEW on DOS: 01/18/25, XY KUB ABDOMEN SINGLE VIEW on DOS: 01/17/25, XY KUB ABDOMEN SINGLE VIEW on DOS: 01/16/25 TECHNIQUE: Frontal views of the abdomen was obtained. FINDINGS: Bowel gas pattern is unremarkable. The lung bases are unremarkable. No acute osseous abnormality identified. IMPRESSION: 1. Nonobstructive bowel gas pattern.
[2025-03-27] MEDS ORDERED: POLYETHYLENE GLYCOL 17 GM PWDR PO PRN (13:45)
[2025-03-27] MEDS: POLYETHYLENE GLYCOL 17 GM PWDR PO ONE (14:09)
--- NOTE | 2025-03-27 16:34 | DVHCONRES ---
Date Seen: Mar 27, 2025 Resident Creating Document: RYAN VILLANUEVA RESIDENT History of Present Illness 59-year-old female with extensive past medical history including cerebrovascular accident, coronary artery disease status post stent placement, diabetes mellitus, hypertension, hyperlipidemia, carotid artery disease, morbid obesity, diverticular disease, history of cervical cancer, nephrolithiasis, and questionable history of Crohns disease versus obstructive colitis (prior workup negative), admitted for abdominal pain. Patient reports no bowel movement for approximately five days prior to admission. Denies hematochezia or melena. No nausea or vomiting. CT abdomen/pelvis and KUB without acute findings. Laboratory studies including chemistry panel unremarkable. Patient otherwise hemodynamically stable. GI consulted for evaluation and management of constipation. PMHx: CVA, CAD status post PCI, diabetes mellitus, hypertension, hyperlipidemia, ca rotid artery disease, morbid obesity, diverticular disease, history of cervical cancer, nephrolithiasis, questionable Crohns disease versus obstructive colitis (previous GI workup negative) PSHx: Multiple prior surgeries ROS: Negative except as noted in HPI Family History: FH: breast cancer G8 SISTER FH: cancer FH: liver cancer G8 MOTHER, , Cause: Liver cancer Family history: Alzheimer's disease G8 MOTHER, , Cause: Liver cancer, Onset:Unknown Family history: Cardiovascular disease G8 FATHER, , Cause: CHF (congestive heart failure), Onset:Unknown Family history: Diabetes mellitus G8 BROTHER, Onset:Unknown Thyroid disease 19 CHILD Thyroid disease 19 CHILD Allergies: Coded Allergies: Latex (Verified Allergy, Mild, 06/02/24) INCLUDING TAPE, BROWN AND CLEAR TAPE Home Meds Active Scripts Lactulose (Lactulose) 10 Gm/15 Ml [place], 10 GM PO BID for 30 Days, #120 ML Prov:TAMI ROOT ARTIFICIAL TEETH INSPECTOR 01/18/25 Ranolazine (Ranolazine ER) 500 Mg Tab, 500 MG PO BID for 30 Days, #60 TAB Prov:TED HUSSEIN AERODYNAMICS PROFESSOR 07/30/24 Baclofen (Baclofen) 10 Mg Tab, 5 MG PO Q8HP PRN for 7 Days, #21 TAB Prov:TED HUSSEIN NP 07/30/24 Isosorbide Mononitrate (Isosorbide Mononitrate Er) 30 Mg Tab, 1 TAB PO DAILY, #30 TAB 5 Refills Prov:TED HUSSEIN NP 07/30/24 Lidocaine (LIDODERM 5% TOPICAL PATCH) 1 Patch Ph, 1 PATCH TOP DAILY for 30 Days, #30 PATCH 0 Refills Prov:MIAN ROMO AERODYNAMICS PROFESSOR 06/02/24 Polyethylene Glycol 3350 (Miralax) 17 Gm Pow, 17 GM PO DAILY for 15 Days, #15 POW Prov:JOVITATED M AERODYNAMICS PROFESSOR 05/03/24 Albuterol Sulfate (Albuterol Sulfate Hfa) 108 Mcg/Act Aer, 108 MCG IN BID PRN for 10 Days, #1 AER 0 Refills Prov:LILI LUNSFORD DO 12/01/22 Reported Medications Docusate Sodium (Docusate Sodium) 100 Mg Cap, 1 CAP PO BID for 30 Days, #60 07/03/24 Simvastatin (Simvastatin) 20 Mg Tab, 1 TAB PO DAILY for 90 Days, #90 07/03/24 Hydrocodone-Acetaminophen (Hydrocodone Bitartrate/AC 10-325 mg) 1 Tab Tab, 1 TAB PO Q6HR PRN for CHRONIC PAIN for 30 Days, #120 07/03/24 Potassium Chloride (Potassium Chloride ER) 10 Meq Tab, 1 TAB PO BID for 90 Days, #180 07/03/24 Paroxetine Hydrochloride (Paroxetine Hydrochloride) 20 Mg Tab, 1 TAB PO DAILY for 90 Days, #90 05/01/24 Tirzepatide (Mounjaro) 7.5 Mg/0.5 Ml Inj, 7.5 MG SC QWEEKLY for 28 Days, #2 10/18/23 Sitagliptin Phosphate (Januvia) 100 Mg Tab, 1 TAB PO DAILY 10/18/23 Clopidogrel Bisulfate (CLOPIDOGREL) 75 Mg Tab, 1 TAB PO DAILY 10/18/23 Furosemide (Furosemide) 40 Mg Tab, 1 TAB PO BID 10/18/23 Atorvastatin Calcium (ATORVASTATIN CALCIUM) 20 Mg Tab, 1 TAB PO DAILY 10/17/23 Cholecalciferol (Vitamin D-3 Super Strengt) 2,000 Unit Tab, 1 TAB PO DAILY 10/17/23 Gabapentin (Gabapentin) 300 Mg Cap, 1 CAP PO Q8HR for NEUROPATHIC PAIN for 30 Days, #90 10/17/23 Aspirin (Aspirin Low Dose) 81 Mg Tab, 1 TAB PO DAILY 10/17/23 Balsalazide Disodium (Balsalazide Disodium) 750 Mg Cap, 3 CAP PO BID for 30 Days, #180 10/17/23 Current Medications Current Medications Medications (Trade) Dose Ordered Sig/Damon Route PRN Reason Start Time Stop Time Status Last Admin Clopidogrel Bisulfate (Plavix) 75 mg DAILY PO 03/27/25 10:00 03/27/25 09:42 Atorvastatin Calcium (Lipitor) 80 mg HS PO 03/26/25 22:00 03/26/25 21:08 Polyethylene Glycol (Miralax 17GM Powder) 17 gm DAILYPRN PRN PO FOR CONSTIPATION 03/27/25 13:45 Lactulose 30 ml Q6HR PO 03/27/25 18:00 Vital Signs Vital Signs Date Time Temp Pulse Resp B/P (MAP) Pulse Ox O2 Delivery O2 Flow Rate FiO2 03/27/25 15:17 73 17 109/71 03/27/25 13:00 97.3 93 97.3 03/27/25 07:40 Room Air* 0 21 Physical Exam General: Awake, alert, no acute distress Abdomen: Obese with significant adipose tissue, mildly distended, soft, non- tender, no guarding or rebound Other systems: Deferred/noncontributory Labs/Diagnostic Data Labs Test 03/27/25 11:58 03/25/25 19:27 03/25/25 17:22 03/25/25 16:08 Range/Units POC Glucose 159 H 70-106 mg/dl Troponin I High Sensitivity < 3 L </=34 ng/L Lactic Acid Level 1.6 0.4-2.0 mmol/L Prothrombin Time 10.0 9.3-11.8 sec Prothrombin Time INR 0.94 0.9-1.15 Test 03/25/25 16:05 03/25/25 15:08 Range/Units Urine Color Yellow Yellow Urine Clarity Turbid H Clear Urine pH 5.5 5.0-9.0 Urine Specific Switzer 1.031 1.001-1.035 Urine Protein Trace H Negative Urine Ketones Negative Negative Urine Blood 3+ H Negative /uL Urine Nitrite Negative Negative Urine Bilirubin Negative Negative Urine Urobilinogen Normal Negative mg/dL Urine Leukocyte Esterase 3+ Negative /uL Urine RBC 97 0 - 4 /hpf Urine Microscopic WBC 300 H 0-5 /HPF Urine Squamous Epithelial Cells Few <5 /hpf Urine Bacteria None seen None Seen /hpf Urine Yeast (Budding) Occasional None Seen /hpf Urine Glucose 4+ H Normal mg/dL White Blood Count 6.3 4.4-10.8 10^3/uL Red Blood Count 4.47 4.0-5.20 10^6/uL Hemoglobin 13.5 12.2-16.2 g/dL Hematocrit 40.1 36.0-46.0 % Mean Corpuscular Volume 89.8 80.0-100.0 fL Mean Corpuscular Hemoglobin 30.2 28.0-32.0 pg Mean Corpuscular Hemoglobin Concent 33.7 32.0-36.0 g/dL Red Cell Distribution Width 14.8 H 11.8-14.3 % Platelet Count 197 140-450 10^3/uL Mean Platelet Volume 8.5 6.9-10.8 fL Neutrophils (%) (Auto) 66.0 37.0-80.0 % Lymphocytes (%) (Auto) 26.3 10.0-50.0 % Monocytes (%) (Auto) 4.9 0.0-12.0 % Eosinophils (%) (Auto) 2.2 0.0-7.0 % Basophils (%) (Auto) 0.6 0.0-2.0 % Neutrophils # (Auto) 4.2 1.6-8.6 10 ^3/uL Lymphocytes # (Auto) 1.7 0.4-5.4 10 ^3/uL Monocytes # (Auto) 0.3 0-1.3 10 ^3/uL Eosinophils # (Auto) 0.1 0-0.8 10 ^3/uL Basophils # (Auto) 0 0-0.2 10 ^3/uL Nucleated Red Blood Cells 0.1 % Sodium Level 139 136-145 mmol/L Potassium Level 4.4 3.5-5.1 mmol/L Chloride Level 103 98-107 mmol/L Carbon Dioxide Level 27 20-31 mmol/L Anion Gap 9 5-15 Blood Urea Nitrogen 14 9-23 mg/dL Creatinine 1.08 H 0.550-1.02 mg/dL Glomerular Filtration Rate Calc 58 >90 mL/min BUN/Creatinine Ratio 13.0 10.0-20.0 Serum Glucose 316 H 74-106 mg/dL Calcium Level 9.7 8.7-10.4 mg/dL Total Bilirubin 0.3 0.2-1.0 mg/dL Aspartate Amino Transferase (AST) 10 L 13-40 U/L Alanine Aminotransferase (ALT) < 9 7-40 U/L Alkaline Phosphatase 162 H 46-116 U/L Total Protein 6.7 5.7-8.2 g/dL Albumin 4.2 3.2-4.8 g/dL Plan/Recommendation #Chronic constipation #Diverticular disease #History of inflammatory bowel disease, unspecified (previously ruled out on colonoscopy) #Coronary artery disease status post stent #Diabetes mellitus #Morbid obesity #UTI Plan: Continue mechanical soft diet Initiate bowel regimen with polyethylene glycol (Miralax) daily Add lactulose scheduled until bowel movement achieved, then titrate to effect Fleet enema Encourage oral hydration as tolerated No indication for antibiotics at this time No endoscopic intervention indicated GI to follow as needed for response to bowel regimen AB for UTI Case discussed with Dr Clemente Plan discussed with: Patient, Other (rn) RYAN VILLANUEVA RESIDENT Mar 27, 2025 16:34
--- NOTE | 2025-03-27 16:36 | DVHPN2 ---
Progress Note Date Seen: Mar 27, 2025 Medical Necessity Reason Pt with a Central, PICC or Fol: No Subjective Review of Systems: CVS:Normal, RESPIRATORY:Normal, GI:Normal Objective vital signs Vital Sign Date Time Temp Pulse Resp B/P (MAP) Pulse Ox O2 Delivery O2 Flow Rate FiO2 03/27/25 15:17 73 17 109/71 03/27/25 13:00 97.3 93 97.3 03/27/25 07:40 Room Air* 0 21 Total Intake and Output 03/26/25 03/26/25 03/27/25 15:00 23:00 07:00 Intake Total 1480 ml 0 ml Balance 1480 ml 0 ml medications Current Medications Medications Dose Ordered Sig/Damon Route Start Time Stop Time Status Last Admin Dose Admin Acetaminophen 325 mg Q6HP PRN PO 03/25/25 19:45 Enoxaparin Sodium 40 mg DAILY SC 03/26/25 10:00 03/27/25 09:44 40 MG Diagnostic Test (Pha) 1 strip Q6HR 03/26/25 00:00 03/27/25 12:06 1 STRIP Insulin Human Regular Q6HR SC 03/26/25 00:00 03/27/25 12:08 2 UNITS Acetaminophen/ Hydrocodone Bitart 1 tab Q4HP PRN PO 03/25/25 19:45 Temazepam 15 mg QHSP PRN PO 03/25/25 19:45 Ondansetron HCl 4 mg Q4HP PRN IV 03/25/25 19:45 03/25/25 20:19 4 MG Nitroglycerin 0.4 mg Q5MINP PRN SL 03/25/25 19:45 Morphine Sulfate 2 mg Q30M PRN IV 03/25/25 19:45 Ceftriaxone Sodium 50 ml @ 100 mls/hr DAILY IV 03/25/25 19:45 03/27/25 09:42 100 MLS/HR Aspirin 81 mg DAILY PO 03/26/25 10:00 03/27/25 09:43 81 MG Pantoprazole Sodium 40 mg DAILY PO 03/26/25 10:00 03/27/25 09:44 40 MG Labetalol HCl 10 mg Q2HPRN PRN IV 03/25/25 19:45 Morphine Sulfate 2 mg Q4HPRN PRN IV 03/26/25 01:00 03/27/25 15:17 2 MG Clopidogrel Bisulfate 75 mg DAILY PO 03/27/25 10:00 03/27/25 09:42 75 MG Isosorbide Mononitrate 30 mg DAILY PO 03/26/25 10:00 03/27/25 09:43 30 MG Ranolazine 500 mg BID PO 03/26/25 10:00 03/27/25 09:42 500 MG Atorvastatin Calcium 80 mg HS PO 03/26/25 22:00 03/26/25 21:08 80 MG Polyethylene Glycol 17 gm DAILYPRN PRN PO 03/27/25 13:45 Lactulose 30 ml Q6HR PO 03/27/25 18:00 Examination: GENERAL:Normal, LUNGS:Normal, CVS:Normal, SKIN:Normal laboratory and microbiology Laboratory Tests 03/25/25 15:08 Test 03/25/25 15:08 Range/Units Serum Glucose 316 H 74-106 mg/dL Labs and/or images reviewed: Labs reviewed by me, Image(s) reviewed by me Problem List/Assessment/Plan Problem List/Assessment/Plan 1. Strokelike symptoms Monitor, neurology consult, MRI brain 2. CAD with stent Monitor 3. DM 2 and neuropathy Monitor, insulin sliding scale, HgbA1c 4. Acute cystitis with hematuria Monitor, IV antibiotics 5. Obesity Monitor, lipid panel, PPI 6. History of CVA Monitor normal neurology consult 7. History of ESBL in urine Monitor, IV antibiotics Assessment/Plan Subjective Patient is awake and alert. Objective Patient was admitted for abdominal pain related to recurrent cystitis. Patient was given pain medication and then had strokelike symptoms. Patient has a history of CVA in the past. Patient could have had a TIA or exacerbation of old stroke symptoms from acute cystitis. MRI of the brain is negative for CVA. Patient has a history of CAD with stents to her LAD and circumflex. Plan Continue dual antiplatelet therapy. . Continue antibiotics for UTI. consult GI for abdominal pain Plan discussed with: Patient My Orders My Orders Orders - TAMI ROOT Procedure Category Date Status Time Kub Abdomen Single XY 03/27/25 Resulted View 11:42 *Consult Dr. Alicia CONS 03/27/25 Transmitted Bryn 11:42 Polyethylene Glycol PHA 03/27/25 In Process 17g Powder (Miralax 13:45 Lactulose Oral PHA 03/27/25 In Process 18:00 Date of Service: Mar 27, 2025 Billing Provider: CAL MARTINO MD Common Visit Codes: 79790-[id number] INP/OBS CARE (MOD) TAMI ROOT DIRECTOR OF GROUP COUNSELING PROGRAM Mar 27, 2025 16:36
[2025-03-27] MEDS: FLEET ENEMA(ADULT) 135 ML PR ONE (17:32)
[2025-03-27] MEDS: LACTULOSE 20Gm/30ML SOLN PO SCH (17:33)
[2025-03-28 01:00] VITALS: BP 107/77; PULSE 76; RESP 18; TEMP 97.9; O2SAT 91
[2025-03-28 05:00] VITALS: BP 113/89; PULSE 82; RESP 18; TEMP 98.3; O2SAT 95
--- NOTE | 2025-03-28 07:25 | DVHPN2 ---
Progress Note - Dictate Date Seen: Mar 28, 2025 Medical Necessity Reason Pt with a Central, PICC or Fol: No vital signs Vital Sign Date Time Temp Pulse Resp B/P (MAP) Pulse Ox O2 Delivery O2 Flow Rate FiO2 03/28/25 05:00 98.3 82 18 113/89 (97) 95 98.3 03/27/25 20:00 Room Air* 0 21 Total Intake and Output 03/27/25 03/27/25 03/28/25 15:00 23:00 07:00 Intake Total 900 ml 0 ml Balance 900 ml 0 ml medications Current Medications Medications Dose Ordered Sig/Damon Route Start Time Stop Time Status Last Admin Dose Admin Acetaminophen 325 mg Q6HP PRN PO 03/25/25 19:45 Enoxaparin Sodium 40 mg DAILY SC 03/26/25 10:00 03/27/25 09:44 40 MG Diagnostic Test (Pha) 1 strip Q6HR 03/26/25 00:00 03/28/25 05:06 1 STRIP Insulin Human Regular Q6HR SC 03/26/25 00:00 03/28/25 05:06 2 UNITS Acetaminophen/ Hydrocodone Bitart 1 tab Q4HP PRN PO 03/25/25 19:45 Temazepam 15 mg QHSP PRN PO 03/25/25 19:45 Ondansetron HCl 4 mg Q4HP PRN IV 03/25/25 19:45 03/25/25 20:19 4 MG Nitroglycerin 0.4 mg Q5MINP PRN SL 03/25/25 19:45 Morphine Sulfate 2 mg Q30M PRN IV 03/25/25 19:45 Ceftriaxone Sodium 50 ml @ 100 mls/hr DAILY IV 03/25/25 19:45 03/27/25 09:42 100 MLS/HR Aspirin 81 mg DAILY PO 03/26/25 10:00 03/27/25 09:43 81 MG Pantoprazole Sodium 40 mg DAILY PO 03/26/25 10:00 03/27/25 09:44 40 MG Labetalol HCl 10 mg Q2HPRN PRN IV 03/25/25 19:45 Morphine Sulfate 2 mg Q4HPRN PRN IV 03/26/25 01:00 03/28/25 03:49 2 MG Clopidogrel Bisulfate 75 mg DAILY PO 03/27/25 10:00 03/27/25 09:42 75 MG Isosorbide Mononitrate 30 mg DAILY PO 03/26/25 10:00 03/27/25 09:43 30 MG Ranolazine 500 mg BID PO 03/26/25 10:00 03/27/25 21:14 500 MG Atorvastatin Calcium 80 mg HS PO 03/26/25 22:00 03/27/25 21:14 80 MG Polyethylene Glycol 17 gm DAILYPRN PRN PO 03/27/25 13:45 Lactulose 30 ml Q6HR PO 03/27/25 18:00 03/28/25 00:32 30 ML laboratory and microbiology Laboratory Tests 03/25/25 15:08 Test 03/25/25 15:08 Range/Units Serum Glucose 316 H 74-106 mg/dL Assessment/Plan Patient is a 59-year-old female who presented to the hospital with 1 day of abdominal pain. Abdominal pain was in the middle to the lower part of the abdomen. She also had some constipation and dysuria. While being managed in emergency room, the patient had episodes of difficulty finding words and experienced stuttering. She was admitted with possible stroke and has been seen by Neurology. She mentions she did have some chest discomfort also. Cardiology is involved for cardiac aspects of care. She is known to our practice from before. She mentions that she had stopped taking Plavix around 6 days prior to presentation (wanted to have some type of dental management). She had not come to our office for evaluation prior to dental evaluation. It seems that she also had not been taking some other medications also. Does have history of uterine prolapse after cervical cancer surgery. Does have baseline history of coronary artery disease. During earlier admission in June/2024, the patient did have some chest pain with abnormal troponin and was found to have non-STEMI. Cardiac catheterization at that point revealed multivessel coronary artery disease and the patient was sent to [place] for the suggested CABG surgery. It seems that in [place] they did not do the CABG and the patient had only 1 stent. Later the patient was discharged home from [place]. In the middle of July patient came back with chest discomfort to our facility and with diagnosis of unstable angina was sent back to [place]. In [place], the patient again had another stent. I had an opportunity to talk to the hacksaw inspector in [place]. It seems that during the 1st admission to [place], they did put 1 stent in LAD. During the 2nd admission they put another stent in circumflex. It is of note that the patient did have LAD with trifurcation with disease in all of them. Reportedly (as per hacksaw inspector in [place]) LAD stent has resulted in pinching of the diagonals. Patient mentions compliance with aspirin/Plavix. Patient also has history of inflammatory bowel disease/ulcerative colitis/Crohn disease. She also has diverticular disease. She repeatedly presents with abdominal pain. Not in acute distress. No JVD. Mucosa is pink and dry. No carotid bruit. Lungs are clear to auscultation. Not using accessory muscles of breathing. Cardiac: Regular, no thrills/gallop. Abdomen is soft. Lower abdominal tenderness can be elicited. There is no rebound. Bowel sound is positive There was no gross mass/hepatomegaly. Extremities do not reveal edema. Dorsalis pedis is 2+ bilateral. 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 She has had kidney stones/hydronephrosis/hydroureter before. Uses a walker for ambulation (secondary to old CVA). Patient was found to have multivessel coronary artery disease (left heart catheterization of July 09, 2024). On July 12 2024, the patient was sent to higher level of care ([place]) for possible CABG surgery. Patient ended up having 1 stent in LAD and CABG was not performed. At next presentation, (still in July 2024) patient was sent back to [place] and had another stent (this time in LCX). Reportedly the patient does have pinching of diagonals. Echocardiogram of December 16, 2022 (performed in [facility]) revealed ejection fraction of 60%, mild TR and right ventricular systolic pressure of 27 mm Hg. Echocardiogram of October 18, 2023 reported ejection fraction 55-60%, mild MR/TR and right ventricular systolic pressure of 25 mm Echocardiogram of May 05, 2024 revealed ejection fraction of 50-55%, normal diastolic, trace MR/TR and right ventricular systolic pressure of 28 mm Hg Echocardiogram of July 05, 2024 had revealed ejection fraction of 40%, trace MR/TR and right ventricular systolic pressure of 30 mm Hg Echocardiogram of July 29, 2024 revealed ejection fraction of 50-55%, no wall motion abnormality, trace mitral regurgitation, no tricuspid regurgitation. As there was no good tricuspid regurgitation jet, right ventricular systolic pressure could not be estimated Echocardiogram of November 12, 2024 revealed: LVEF of 60%, no wall motion abnormality. Trace mitral/tricuspid regurgitation. Right ventricular systolic pressure of 28 mm Hg Nuclear stress test of January 03, 2022 (performed as outpatient) revealed ejection fraction of 80% and no evidence for ischemia/scar. Left heart catheterization of July 09 2024 had revealed triple-vessel coronary artery disease Hemoglobin: 13.5 Creatinine: 1.08 Potassium: 4.4 Troponin (high sensitive): <3 - <3 - <[address] scan revealed: IMPRESSION: No acute noncontrast CT abnormality in the abdomen/pelvis. Punctate nonobstructing right renal calculus. Constipation. Mild colonic diverticulosis. Cholecystectomy. Uterine fibroid 3- vessel coronary artery calcifications. Pelvic ultrasound revealed: IMPRESSION: 1. Grossly unremarkable pelvic ultrasound. 2. Intramural fibroid 3. No adnexal masses 4. Patient refused transvaginal exam CT of the head revealed: IMPRESSION: No intracranial hemorrhage or mass effect. Chest xray revealed: IMPRESSION: 1. No acute cardiopulmonary disease. MRI of Brain reported: IMPRESSION: No acute intracranial abnormality. Specifically, no acute infarct. Telemetry revealed sinus rhythm Echocardiogram (03/26/2025) revealed: Left ventricle: Left ventricle was normal sized with normal systolic function. LVEF was 55-60%. There was no gross wall motion abnormality. Diastolic function of left ventricle was considered normal. Right ventricle: Right ventricle was normal sized with normal systolic function. Both atria were normal sized. Aortic valve: Aortic valve was trileaflet. There was no aortic insufficiency/stenosis. There was trace mitral/tricuspid regurgitation. There was no pulmonary valve insufficiency. Right ventricular systolic pressure was assessed normal at 24 mm Hg. There was no pericardial effusion. The IVC was normal size with normal respiratory variation. Patient is a 59-year-old female who presented for abdominal pain. While being managed in emergency room the patient did have episode of stuttering and difficulty finding words. Is admitted with questionable TIA versus CVA. Does have old history of CVA. Usually should have been on aspirin/Plavix for history of coronary artery disease. Has not been compliant with Plavix without communicating with Cardiology (was planning to go for some type of dental workup). Does have baseline history of kidney stone and uterine fibroid which could have contributed to the abdominal pain. Also has history of ulcerative colitis and repeatedly presents with abdominal pain. Does have history of coronary artery disease. Presentation is not considered cardiac at this point. Has had repeated ischemic workups. Noncompliance could have contributed to the clinical picture. Assessment: Abdominal pain CVA? Coronary artery disease, history of Triple-vessel coronary artery disease Status post PCI (drug-eluting stent deployment of LAD and LCX).. History of old CVA with left hemiparesis History of Crohn disease/ulcerative colitis Inflammatory Bowel Disease Constipation Hyperlipidemia Status post carotid endarterectomy Diverticular disease, history of Noncompliance with medication and followups Renal Calculi Uterine Leiomyoma Cardiac suggestion for management: Manage in tele Follow-up electrolytes and kidney function tests and correct abnormalities. Keep potassium above 4 and magnesium above 2 For now, dual antiplatelet therapy is advised (on ASA/Clopidogrel now). Continue Ranolazine/Imdur Neurology evaluation/follow-up Evaluation and management of the abdominal pain and dysuria as per primary team. Consider GI evaluation Lifestyle and risk factor modification is advised Patient was counseled to be compliant with medication and followups Cardiac harrison, can be followed as outpatient Further evaluation and management depends on the above and clinical course A total of 55 minutes was spent reviewing the patient record, examining the patient, making a diagnostic and therapeutic plan, discussing this plan with medical personnel, following up on diagnostic studies and following the patient for clinical stability excluding any and all procedures. At least 50% of this time was spent in direct, [id number] contact. Thank you for allowing me to participate in this patient's care. Further recommendations will depend on patient's clinical course. Please do not hesitate to contact me if you have any questions or concerns. This medical document was created using electronic medical record system with [employer] dictation system. Although this document has been carefully reviewed, there may still be some phonetic and typographical errors. These areas are purely typographical due to the imperfection of the software programs, and do not reflect any compromise in the patient's medical care Plan discussed with: Patient MONICA GARCIA NP Mar 28, 2025 07:25
[2025-03-28 08:00] VITALS: PULSE 80; PULSE 82; RESP 19; O2SAT 92
[2025-03-28 09:00] VITALS: BP 110/77; PULSE 80; RESP 19; TEMP 98.3; O2SAT 92
[2025-03-28 09:24] VITALS: BP 106/78; PULSE 85; RESP 16
[2025-03-28] MEDS ORDERED: CIPR-173 PO (11:07)
--- NOTE | 2025-03-28 11:07 | DVHDS2 ---
Discharge Summary Date of Admission Mar 25, 2025 at 19:34 Date of Discharge: Mar 28, 2025 Admitting Diagnosis stroke like symptoms Labs/Diagnostic Data: Laboratory Results Test 03/28/25 04:58 03/25/25 19:27 03/25/25 17:22 03/25/25 16:08 POC Glucose 150 mg/dl (70-106) Troponin I High Sensitivity < 3 ng/L (</=34) Lactic Acid Level 1.6 mmol/L (0.4-2.0) Prothrombin Time 10.0 sec (9.3-11.8) Prothrombin Time INR 0.94 (0.9-1.15) Test 03/25/25 16:05 03/25/25 15:08 Urine Color Yellow (Yellow) Urine Clarity Turbid (Clear) Urine pH 5.5 (5.0-9.0) Urine Specific [place] 1.031 (1.001-1.035) Urine Protein Trace (Negative) Urine Ketones Negative (Negative) Urine Blood 3+ /uL (Negative) Urine Nitrite Negative (Negative) Urine Bilirubin Negative (Negative) Urine Urobilinogen Normal mg/dL (Negative) Urine Leukocyte Esterase 3+ /uL (Negative) Urine RBC 97 /hpf (0 - 4) Urine Microscopic WBC 300 /HPF (0-5) Urine Squamous Epithelial Cells Few /hpf (<5) Urine Bacteria None seen /hpf (None Seen) Urine Yeast (Budding) Occasional /hpf (None Urine Glucose 4+ mg/dL (Normal) White Blood Count 6.3 10^3/uL (4.4-10.8) Red Blood Count 4.47 10^6/uL (4.0-5.20) Hemoglobin 13.5 g/dL (12.2-16.2) Hematocrit 40.1 % (36.0-46.0) Mean Corpuscular Volume 89.8 fL (80.0-100.0) Mean Corpuscular Hemoglobin 30.2 pg (28.0-32.0) Mean Corpuscular Hemoglobin Concent 33.7 g/dL (32.0-36.0) Red Cell Distribution Width 14.8 % (11.8-14.3) Platelet Count 197 10^3/uL (140-450) Mean Platelet Volume 8.5 fL (6.9-10.8) Neutrophils (%) (Auto) 66.0 % (37.0-80.0) Lymphocytes (%) (Auto) 26.3 % (10.0-50.0) Monocytes (%) (Auto) 4.9 % (0.0-12.0) Eosinophils (%) (Auto) 2.2 % (0.0-7.0) Basophils (%) (Auto) 0.6 % (0.0-2.0) Neutrophils # (Auto) 4.2 10 ^3/uL (1.6-8.6) Lymphocytes # (Auto) 1.7 10 ^3/uL (0.4-5.4) Monocytes # (Auto) 0.3 10 ^3/uL (0-1.3) Eosinophils # (Auto) 0.1 10 ^3/uL (0-0.8) Basophils # (Auto) 0 10 ^3/uL (0-0.2) Nucleated Red Blood Cells 0.1 % Sodium Level 139 mmol/L (136-145) Potassium Level 4.4 mmol/L (3.5-5.1) Chloride Level 103 mmol/L (98-107) Carbon Dioxide Level 27 mmol/L (20-31) Anion Gap 9 (5-15) Blood Urea Nitrogen 14 mg/dL (9-23) Creatinine 1.08 mg/dL (0.550-1.02) Glomerular Filtration Rate Calc 58 mL/min (>90) BUN/Creatinine Ratio 13.0 (10.0-20.0) Serum Glucose 316 mg/dL (74-106) Calcium Level 9.7 mg/dL (8.7-10.4) Total Bilirubin 0.3 mg/dL (0.2-1.0) Aspartate Amino Transferase (AST) 10 U/L (13-40) Alanine Aminotransferase (ALT) < 9 U/L (7-40) Alkaline Phosphatase 162 U/L (46-116) Total Protein 6.7 g/dL (5.7-8.2) Albumin 4.2 g/dL (3.2-4.8) Other Laboratory Tests 03/25/25 15:08 Brief Hx & Hospital Course: The patient was admitted for evaluation of stroke-like symptoms. MRI of the brain was negative, and cerebrovascular accident was ruled out. During hospitalization, the patient was found to have acute cystitis with hematuria and was treated with intravenous antibiotics with clinical improvement. The patient was transitioned to oral ciprofloxacin 500 mg twice daily for a total of 7 days upon discharge. The patient was also noted to have constipation and was treated with cathartics, resulting in a successful bowel movement and improvement in symptoms. At the time of discharge, the patient was clinically stable. The patient is instructed to follow up with their primary care provider within one week of discharge. Condition at Discharge: Fair Final Diagnosis/Problems List 1. Strokelike symptoms 2. CAD with stent 3. DM 2 and neuropathy 4. Acute cystitis with hematuria 5. Obesity 6. History of CVA 7. History of ESBL in urine 8. constipation Discharge Disposition: Home Discharge Instruct/Medications Diet: Cardiac 2g Na,low cholest Activity: No Restrictions, As Tolerated Follow Up/Referral: PCP within 1 week Scheduled Aspirin (Aspirin Low Dose), 1 TAB PO DAILY, (Reported) Atorvastatin Calcium (Atorvastatin Calcium), 1 TAB PO DAILY, (Reported) Balsalazide Disodium (Balsalazide Disodium), 3 CAP PO BID, (Reported) Cholecalciferol (Vitamin D-3 Super Strengt), 1 TAB PO DAILY, (Reported) Ciprofloxacin Hcl (Cipro), 1 TAB PO BID Clopidogrel Bisulfate (Clopidogrel), 1 TAB PO DAILY, (Reported) Docusate Sodium (Docusate Sodium), 1 CAP PO BID, (Reported) Furosemide (Furosemide), 1 TAB PO BID, (Reported) Gabapentin (Gabapentin), 1 CAP PO Q8HR, (Reported) Isosorbide Mononitrate (Isosorbide Mononitrate Er), 1 TAB PO DAILY Lactulose (Lactulose), 10 GM PO BID Lidocaine (Lidoderm 5% Topical Patch), 1 PATCH TOP DAILY Paroxetine Hydrochloride (Paroxetine Hydrochloride), 1 TAB PO DAILY, (Reported) Polyethylene Glycol 3350 (Miralax), 17 GM PO DAILY Potassium Chloride (Potassium Chloride ER), 1 TAB PO BID, (Reported) Ranolazine (Ranolazine ER), 500 MG PO BID Simvastatin (Simvastatin), 1 TAB PO DAILY, (Reported) Sitagliptin Phosphate (Januvia), 1 TAB PO DAILY, (Reported) Tirzepatide (Mounjaro), 7.5 MG SC QWEEKLY, (Reported) Scheduled PRN Albuterol Sulfate (Albuterol Sulfate Hfa), 108 MCG IN BID PRN Baclofen (Baclofen), 5 MG PO Q8HP PRN Hydrocodone-Acetaminophen (Hydrocodone Bitartrate/AC 10-325 mg), 1 TAB PO Q6HR PRN for CHRONIC PAIN, (Reported) Discharge Statement: "Patient was advised to return to the ER or call 911 if any headaches, dizziness, shortness of breath, chest pain, abdominal pain, bleeding, fevers, or worsening of medical condition. Patient was counseled about treatment plan, medications, possible side effects, patientverbalized understanding. All questions were answered to the best of my ability. This discharge took greater then 30 minutes in planning, reviewing documentation, counseling the patient, and discussing with other team members." ASSESSMENT ASSESSMENT Assessment 1. Strokelike symptoms 2. CAD with stent 3. DM 2 and neuropathy 4. Acute cystitis with hematuria 5. Obesity 6. History of CVA 7. History of ESBL in urine 8. constipation TAMI ROOT Mar 28, 2025 11:07
== END 2025-03-28 12:05 | disposition home or self-care (01) | DRG 690 ==
LOC: ER 14:45 → OVERFLOW 19:34 → TELE-WESTW 21:30
PROVIDERS: ADMIT Nurse Practitioner; ATTEND Nurse Practitioner
DX: N30.01 Acute cystitis with hematuria (principal); I50.32 Chronic diastolic (congestive) heart failure; I11.0 Hypertensive heart disease with heart failure; I69.320 Aphasia following cerebral infarction; I69.354 Hemiplegia and hemiparesis following cerebral infarction affecting left non-dominant side; E11.40 Type 2 diabetes mellitus with diabetic neuropathy, unspecified; E66.01 Morbid (severe) obesity due to excess calories; K50.90 Crohn's disease, unspecified, without complications; I25.10 Atherosclerotic heart disease of native coronary artery without angina pectoris; K57.30 Diverticulosis of large intestine without perforation or abscess without bleeding; N20.0 Calculus of kidney; Z68.33 Body mass index [BMI] 33.0-33.9, adult; K59.00 Constipation, unspecified; E78.5 Hyperlipidemia, unspecified; Z79.82 Long term (current) use of aspirin; Z79.84 Long term (current) use of oral hypoglycemic drugs; Z79.899 Other long term (current) drug therapy; Z80.0 Family history of malignant neoplasm of digestive organs; Z80.3 Family history of malignant neoplasm of breast; Z82.0 Family history of epilepsy and other diseases of the nervous system; Z82.49 Family history of ischemic heart disease and other diseases of the circulatory system; Z83.3 Family history of diabetes mellitus; Z85.038 Personal history of other malignant neoplasm of large intestine; Z85.41 Personal history of malignant neoplasm of cervix uteri; Z86.19 Personal history of other infectious and parasitic diseases; Z90.49 Acquired absence of other specified parts of digestive tract; Z91.040 Latex allergy status; Z91.148 Patient's other noncompliance with medication regimen for other reason; Z95.5 Presence of coronary angioplasty implant and graft
CPT/HCPCS: 36415; 70450; 70551; 71045; 74018; 74176; 76856; 80053; 81001; 82962; 83605; 84484; 85025; 85610; 93005; 93306; 97163; G0378; J1815; J2405